=== PATIENT | female | born 1975 | race Caucasian/White ===

== ENCOUNTER → 2017-12-01 09:11 | Outpatient (REF) | payer BC, OTHER, SELFPAY ==
[2017-12-01 14:04] LABS: Amphetamine/Metha Screen,Urine Negative ng/mL (<1000); Barbiturates Screen,Urine Negative ng/mL (<200); Benzodiazepines Screen,Urine Negative ng/mL (200); Cannabinoid Screen,Urine Negative ng/mL (<50); Cocaine Screen,Urine Negative ng/g (<300); Methadone Screen,Urine Negative ng/mL (<300); Opiate Screen,Urine Negative ng/mL (<300); Phencyclidine Screen,Urine Negative ng/mL (<25)
[2017-12-08 16:28] LABS: Alprazolam Negative (Cutoff=100); Benzodiazepines Negative ng/mL (Cutoff=100); Clonazepam Negative (Cutoff=100); Flurazepam Negative (Cutoff=100); Lorazepam Negative (Cutoff=100); Midazolam Negative (Cutoff=100); Temazepam Negative (Cutoff=100); Triazolam Negative (Cutoff=100)
== END ==
LOC: LAB 09:11
PROVIDERS: Visit Provider Nurse Practitioner Family
DX: Z79.899 Other long term (current) drug therapy (principal); F41.9 Anxiety disorder, unspecified
CPT/HCPCS: 80305; 80346

== ENCOUNTER 2020-01-07 13:39 | Emergency (ER) | payer BC, OTHER, SELFPAY ==
[2020-01-07 13:48] VITALS: BP 137/91; PULSE 93; RESP 18; TEMP 36.7; O2SAT 99; BMI 21.9
--- NOTE | 2020-01-07 13:57 | HMH.EDUTC ---
[facility] [place] Clinical Impression: Strep throat exposure Disposition: Home, Self-Care Condition on Discharge: Good Instructions: Strep Throat, DI for Strep Throat Additional Instructions: Drink plenty of fluids. Take tylenol for pain or fever. Take the medications as directed if you begin to have symptoms. Follow up with your regular doctor. GO TO THE ER FOR ANY WORSENING SYMPTOMS Prescriptions: Azithromycin [Z-Nirav 250mg Tab*] 250 mg PO UD DOSE PK #6 tab Transmission Status: Received by [id number] Referrals: Maribel Stevenson [Primary Care Provider] - Forms: Work/School Release Time of Disposition: 14:01 Medical Decision Making - Medical Records Medical records reviewed: No: I reviewed the patient's medical records. - Horace Inquiry Pt receiving controlled substance: No Vital Signs: 01/07/20 13:48 01/07/20 14:09 Temperature 98.1 F 98.1 F Temperature Source Oral Oral Pulse Rate 93 H Pulse Rate [Right Brachial] 93 H Respiratory Rate 18 18 Blood Pressure 137/91 H Blood Pressure [Right Arm] 137/91 H Blood Pressure Mean [Right Arm] 106 Blood Pressure Source Automatic Cuff Blood Pressure Source [Right Arm] Automatic Cuff Blood Pressure Position Sitting Blood Pressure Position [Right Arm] Sitting 02 Sat by Pulse Oximetry 99 Oxygen Delivery Method Room Air Room Air - Lab Data Lab results reviewed: Yes: I reviewed the patient's lab results. Lab Results 01/07/20 13:50: Strep Scn Rapid Clinic Negative Orders (Tests/Meds): ORDERS Category Date Time Status Strep Screen Confirmation Stat Micro 01/07/20 13:50 Received [facility] [place] HPI - General Stated complaint: sore throat Time Seen by Provider: 01/07/20 13:57 Mode of Arrival: Family Vehicle Source of Information: Patient Limitations: No Limitations Description of Symptoms (Recalled from Triage Doc. by RN): STATES GRANDSON TESTED POSITIVE FOR STREP AND WANTS TO BE TESTED. DENIES C/O SORE THROAT BUT STATES I KNOW I HAVE IT HEENT Symptoms (Recalled from RN notes): No Resp Symptoms (Recalled from RN notes): No Skin Symptoms (Recalled from RN notes): No MS Symptoms (Recalled from RN notes): No Functional Status (Recalled from RN notes): N/A - History of Present Illness Provider Complaint: She states that she has been exposed to strep throat by her grand child. She has a history of getting strep throat frequently. She denies any sore throat or other symptoms. - Related Data Home Medications Medication Instructions Recorded Confirmed ascorbic acid (vitamin C) 1,000 mg PO 12/02/19 12/02/19 tablet bisoprolol 5 tab PO 12/02/19 12/02/19 mg-hydrochlorothiazide 6.25 mg tablet ferrous sulfate 325 mg (65 mg PO 12/02/19 12/02/19 iron) tablet paroxetine HCl 10 mg tablet mg PO 12/02/19 12/02/19 Previous Rx's Medication Instructions Recorded ondansetron 4 mg disintegrating 4 mg PO Q6H PRN 3 Days #12 tab 12/02/19 tablet Azithromycin [Z-Nirav 250mg Tab*] 250 mg PO UD DOSE PK #6 tab 01/07/20 Allergies Allergy/AdvReac Type Severity Reaction Status Date / Time SULFA (SULFONAMIDE) Allergy Unknown I-HIVES Uncoded 12/02/19 10:36 - Worker's Comp Is this a Worker's Comp case?: No [facility] History - Hepatitis A Screen Drug use history?: No High risk sexual behaviors?: No History of sexually transmitted infection?: No Currently employed?: No Childcare worker?: No Do you have indoor plumbing?: Yes Do you have electricity?: Yes Attestation statement:: This patient has been screened for Hepatitis A risk factors. I have reviewed the patient's past medical history: Yes Medical History: Reports:: Anxiety, Depression, Hypertension Denies:: Cancer, Diabetes Mellitus Type 1, Diabetes Mellitus Type 2, MRSA Comment: insomnia Other Surgeries: Yes: Amputation: No Fractures: No - Social History Smoking Status: Current every day smoker Tobacco Type: cigarettes # Packs/Day (cigarettes): 1 Al
[2020-01-07 14:09] VITALS: BP 137/91; PULSE 93; RESP 18; TEMP 36.7; O2SAT 99
[2020-01-07 14:32] LABS: UTC Strep Screen (Rapid) Negative (Negative)
== END 2020-01-07 14:11 | disposition home or self-care (01) ==
PROVIDERS: Emergency Provider Nurse Practitioner Family; PCP Nurse Practitioner Family
DX: J02.9 Acute pharyngitis, unspecified (principal); Z88.2 Allergy status to sulfonamides; Z72.0 Tobacco use
CPT/HCPCS: 87880; 99201

== ENCOUNTER 2020-04-18 14:40 | Emergency (ER) | payer BC, OTHER, SELFPAY ==
[2020-04-18 14:55] VITALS: BP 149/80; PULSE 110; RESP 20; TEMP 37.5; O2SAT 98; BMI 21.1
--- NOTE | 2020-04-18 15:10 | HMH.EDUTC ---
[facility] [place] Disposition Clinical Impression: Bronchitis Disposition: Home, Self-Care Condition on Discharge: Good Instructions: DI for Acute Bronchitis Additional Instructions: start antibiotics Tylenol and ibuprofen as needed for pain or fever Humidifier/vaporizer/hot steamy shower Follow-up with primary care tomorrow. Follow-up immediately in the ER of the [facility] for new or worsening symptoms or no noticeable improvement over the next 48-72 hours. Stop smoking Inhaler every 4-6 hours as needed. Should help open airways improved cough, wheezing, shortness of breath Start steroids today. Helps with inflammation therefore coughing and wheezing. Follow directions on package. Patient states they have taken them before. Prescriptions: predniSONE [Prednisone 20mg Tab] 20 mg PO BID #10 tab Transmission Status: Pending to [id number] Azithromycin [Zithromax 250mg tab] 250 mg PO DIRECTED #6 tab Transmission Status: Pending to [id number] Referrals: Maribel Stevenson [Primary Care Provider] - Time of Disposition: 15:18 Medical Decision Making - Horace Inquiry Pt receiving controlled substance: No Vital Signs: 04/18/20 14:55 Temperature 99.5 F Temperature Source Oral Pulse Rate [Right Brachial] 110 H Respiratory Rate 20 Blood Pressure [Right Arm] 149/80 H Blood Pressure Mean [Right Arm] 103 Blood Pressure Source [Right Arm] Automatic Cuff Blood Pressure Position [Right Arm] Sitting 02 Sat by Pulse Oximetry 98 Oxygen Delivery Method Room Air Orders (Tests/Meds): ORDERS Category Date Time Status SARS-CoV-2, LELE Stat Lab 04/18/20 15:10 Received [facility] [place] HPI - General Chief complaint: Urgent [facility] Stated complaint: tested for covid Time Seen by Provider: 04/18/20 15:10 Mode of Arrival: Ambulatory Source of Information: Patient Limitations: No Limitations Description of Symptoms (Recalled from Triage Doc. by RN): cough, runny nose, shortness of breath, wants covid test HEENT Symptoms (Recalled from RN notes): Yes Resp Symptoms (Recalled from RN notes): Yes Skin Symptoms (Recalled from RN notes): No MS Symptoms (Recalled from RN notes): No Functional Status (Recalled from RN notes): none - History of Present Illness Provider Complaint: 45-year-old female presents for runny nose, coughing up clear sputum, wheezing, low-grade fever, and shortness of breath since yesterday. Patient request a cover test. Patient denies any ill contacts - Related Data Home Medications Medication Instructions Recorded Confirmed ascorbic acid (vitamin C) 1,000 mg PO 12/02/19 12/02/19 tablet bisoprolol 5 tab PO 12/02/19 12/02/19 mg-hydrochlorothiazide 6.25 mg tablet ferrous sulfate 325 mg (65 mg PO 12/02/19 12/02/19 iron) tablet paroxetine HCl 10 mg tablet mg PO 12/02/19 12/02/19 Previous Rx's Medication Instructions Recorded ondansetron 4 mg disintegrating 4 mg PO Q6H PRN 3 Days #12 tab 12/02/19 tablet Azithromycin [Z-Nirav 250mg Tab*] 250 mg PO UD DOSE PK #6 tab 01/07/20 Azithromycin [Zithromax 250mg 250 mg PO DIRECTED #6 tab 04/18/20 tab] predniSONE [Prednisone 20mg 20 mg PO BID #10 tab 04/18/20 Tab] Allergies Allergy/AdvReac Type Severity Reaction Status Date / Time SULFA (SULFONAMIDE) Allergy Unknown I-HIVES Uncoded 12/02/19 10:36 - Worker's Comp Is this a Worker's Comp case?: No [facility] History - Hepatitis A Screen Drug use history?: No High risk sexual behaviors?: No History of sexually transmitted infection?: No Currently employed?: No Childcare worker?: No Do you have indoor plumbing?: Yes Do you have electricity?: Yes Attestation statement:: This patient has been screened for Hepatitis A risk factors. I have reviewed the patient's past medical history: Yes Medical History: Reports:: Anxiety, Depression, Hypertension Denies:: Cancer, Diabetes Mellitus Type 1, Diabetes Mellitus Type 2, Internal Pacemaker, MRSA Comment: insomn
[2020-04-18 15:22] VITALS: BP 140/80; PULSE 110; RESP 20; TEMP 37.5
[2020-04-20 13:26] LABS: Covid-19 Nasal PCR Sendout Lex NOT DETECTED
== END 2020-04-18 15:25 | disposition home or self-care (01) ==
PROVIDERS: Emergency Provider Nurse Practitioner Family; PCP Nurse Practitioner Family
DX: J20.9 Acute bronchitis, unspecified (principal); Z20.828 Contact with and (suspected) exposure to other viral communicable diseases; F41.8 Other specified anxiety disorders; I10 Essential (primary) hypertension; Z79.899 Other long term (current) drug therapy; Z88.2 Allergy status to sulfonamides
CPT/HCPCS: 99201; U0004

== ENCOUNTER 2020-08-21 05:34 | Emergency (ER) | payer OTHER, SELFPAY ==
--- NOTE | 2020-08-21 05:30 | ECG_ITS ---
APPROVED REPORT Exam: Resting ECG HR:92 bpm ECG Measurements Heart Rate 92 AXES VT 100 P 69 QRSd 70 QRS 76 QT 382 T 72 QTc 472 Conclusion Sinus rhythm with short VT ST abnormality, ? electrolyte effect Abnormal ECG Electronically signed by : Talon Snyder, 08/22/2020 19:05:23
[2020-08-21 05:35] VITALS: BP 166/101; PULSE 95; RESP 18; TEMP 36.9; O2SAT 95; BMI 29.9
--- NOTE | 2020-08-21 05:45 | CT_ITS ---
PROCEDURE: CT ABDOMEN PELVIS W CON CLINICAL INDICATION: abd pain Mid epigastric pain COMPARISON: No exams were available for comparison TECHNIQUE: IV Contrast: 75ML Isovue 370 Oral Contrast None Axial images obtained with sagittal and coronal reformats. All CT scans at the facility use one or more dose reduction, viz: automated exposure control, ma/kV adjustment per patient size (including targeted exams where dose is matched to indication, i.e. head), or iterative reconstruction technique. FINDINGS: LOWER THORAX: There is a small hiatal hernia. ABDOMEN & PELVIS: No focal liver lesion evident. The gallbladder is distended measuring up to 11 by 4.9 cm. No radiopaque stones are apparent. The spleen, adrenal glands, and pancreas have an unremarkable appearance. There are small bilateral renal cortical cysts. There is a nonobstructing 3 mm stone in the upper pole of the left kidney and a 1 mm stone in the lower pole of the left kidney. No ureteral calculi are apparent. The uterus has a bulky appearance and is anteverted. There is a 17 mm left ovarian cyst with some minimal enhancement of the wall which could be due to an involuting follicular cyst. No evidence of appendicitis. There is diverticulosis of the descending and sigmoid colon but no evidence of diverticulitis. No acute bony anomalies are evident. IMPRESSION: 1. Distended gallbladder . 2. Other nonacute findings as described above. Dictated by: Fuad Riley MD 08/21/2020 09:48 Fuad Riley MD in [place] 08/21/2020 09:48
--- NOTE | 2020-08-21 05:47 | XR_ITS ---
PROCEDURE: XR CHEST 2V CLINICAL HISTORY: cough COMPARISON: No exams were available for comparison FINDINGS: The cardiomediastinal silhouette and pulmonary vascularity are within normal limits. The lungs are clear without infiltrates, suspicious nodules, or pleural effusions. No acute bony abnormalities. IMPRESSION: No acute findings. Dictated by: Fuad Riley MD 08/21/2020 09:49 Fuad Riley MD in [facility] 08/21/2020 09:49
[2020-08-21 06:00] VITALS: BP 149/84; PULSE 94; RESP 16; O2SAT 95
[2020-08-21 06:06] LABS: Basophils # 0.1 K/mm3 (0-0.2); Basophils % 1.4 % (0.1-2.0); Eosinophils # 0.1 K/mm3 (0.0-0.4); Hematocrit 41.4 % (37.0-47.0); Hemoglobin 12.9 g/dL (12.2-16.2); Lymphocytes # 1.9 K/mm3 (0.7-4.5); Lymphocytes % 36.9 % (10-50); Mean Corpuscular HGB Conc 31.2 g/dL (31.8-35.4); Mean Corpuscular Hemoglobin 29.2 pg (27.0-31.2); Mean Corpuscular Volume 93.7 fl (81-99); Mean Platelet Volume 7.6 fl (7.4-10.4); Monocytes # 0.3 K/mm3 (0.1-1.0); Monocytes % 6.4 % (1.7-9.3); Neutrophils # 2.8 K/mm3 (1.8-7.8); Neutrophils % 54.2 % (37.0-80.0); Platelet Count 427 K/mm3 (142-424); Red Blood Count 4.42 M/mm3 (4.20-5.40); Red Cell Distribution Width 19.9 % (11.5-17.5); White Blood Count 5.1 K/mm3 (4.8-10.8)
[2020-08-21 06:17] LABS: Chloride 106 mmol/L (98-107)
[2020-08-21 06:18] LABS: Potassium 3.4 mmoL/L (3.5-5.1); Sodium 143 mmol/L (136-145)
[2020-08-21 06:20] LABS: Alanine Aminotransferase 84 U/L (12-78); Amylase 104 U/L (30-110); Blood Urea Nitrogen 10 mg/dl (7-17); Creatinine Clearance Estimated 113 mL/min (50-200); Estimated Glomerular Filt Rate 77 ml/min (>60); GFR (African American) 93 ML/MIN (>60)
[2020-08-21 06:21] LABS: Albumin Level 4.3 g/dl (3.5-5.0); Albumin/Globulin Ratio 1.2 (1.1-1.8); Alkaline Phosphatase 137 U/L (38-126); Anion Gap 12.4 mEq/L (5-15); Aspartate Amino Transferase 196 U/L (14-36); Bilirubin,Total 0.6 mg/dl (0.2-1.3); Carbon Dioxide 28 mmol/L (22.0-30.0); Globulin 3.6 g/dL (1.3-3.2); Glucose 130 mg/dl (74-100); Total Protein,Serum 7.9 g/dl (6.3-8.2)
[2020-08-21 06:22] LABS: Ethyl Alcohol 169 mg/dl (0-10)
[2020-08-21 06:30] VITALS: BP 168/102; PULSE 85; O2SAT 99
[2020-08-21 06:30] LABS: C-Reactive Protein < 0.3 mg/L (0-4); Lactic Acid 2.6 mmol/L (0.7-2.1)
[2020-08-21 06:34] LABS: HCG Qualitative, Serum Negative (Negative)
[2020-08-21 06:40] LABS: Erythrocyte Sedimentation Rate 24 mm/hr (0-20); Troponin I < 0.01 ng/ml (0.00-0.034)
[2020-08-21 06:46] LABS: Microscopic, Urine URINE MICROSCOPIC (MICROSCOPIC)
[2020-08-21 06:47] LABS: Appearance,Urine CLEAR (Clear); Bilirubin,Urine Negative (Negative); Blood, Urine Negative (Negative); Color,Urine YELLOW (Yellow); Glucose,Urine (UA) Negative (Negative); Ketones,Urine Negative (Negative); Leukocyte Esterase,Urine Negative (Negative); Nitrate,Urine Negative (Negative); PH,Urine 6.5 (5.0-8.5); Protein,Urine Negative (Negative); Urobilinogen,Urine 0.2 EU/dl (0.2)
[2020-08-21 07:01] LABS: Coronavirus 19 IgG Antibody Positive (Negative)
[2020-08-21 07:02] LABS: Coronavirus 19 IgM Antibody Positive (Negative)
[2020-08-21 07:07] LABS: Procalcitonin 0.073 ng/mL (0.0-2.0)
--- NOTE | 2020-08-21 07:17 | PC.NURSE ---
0708- Pt's IgG/IgM resulted as positive. Pt nasal swabbed at this time. 0540- Pt placed in isolation, al staff wearing appropriate PPE.
[2020-08-21 07:26] LABS: Adenovirus,PCR Not Detected (NotDetected); Bordetella Pertussis Not Detected (NotDetected); Chlamydophila Pneumoniae, PCR Not Detected (NotDetected); Coronavirus 19, PCR Not Detected (NotDetected); Coronavirus 229E Not Detected (NotDetected); Coronavirus NL63 Not Detected (NotDetected); Coronavirus OC43 Not Detected (NotDetected); Coronovirus HKU1,PCR Not Detected (NotDetected); Human Metapneumovirus Not Detected (NotDetected); Influenza A, PCR Not Detected (NotDetected); Influenza AH1, 2009 Not Detected (NotDetected); Influenza AH1, PCR Not Detected (NotDetected); Influenza AH3,PCR Not Detected (NotDetected); Influenza B, PCR Not Detected (NotDetected); Mycoplasma Pneumoniae, PCR Not Detected (NotDetected); Parainfluenza 1, PCR Not Detected (NotDetected); Parainfluenza 2, PCR Not Detected (NotDetected); Parainfluenza 3, PCR Not Detected (NotDetected); Parainfluenza 4, PCR Not Detected (NotDetected); Respiratory Syncytial Virus Not Detected (NotDetected); Rhinovirus/Enterovirus Not Detected (NotDetected)
[2020-08-21 07:33] LABS: Bacteria,Urine Trace /lpf; Mucus,Urine 1+ /lpf; RBC,Urine Occasional #/hpf (0-3); WBC,Urine Occasional #/hpf (0-3)
--- NOTE | 2020-08-21 07:33 | HMH.EDNVD ---
ED Disposition Clinical Impression: Transaminitis, COVID-19 virus IgG antibody detected, COVID-19 virus IgM antibody detected Gastritis Qualifiers: Gastritis type: alcoholic Chronicity: acute Gastritis bleeding: without bleeding Qualified Code(s): K29.20 - Alcoholic gastritis without bleeding Elevated blood alcohol level Qualifiers: Blood alcohol level: 120-199 mg/100 ml Qualified Code(s): Y90.6 - Blood alcohol level of 120-199 mg/100 ml Disposition: Home, Self-Care Condition on Discharge: Good Instructions: DI for Acute Abdomen Additional Instructions: quarantine at home and call pcp for follow up and please stop alcohol use Prescriptions: Pantoprazole Sodium [Protonix 40mg tablet] 40 mg PO HS #30 tab Transmission Status: Pending to [facility] #[id number] Referrals: Maribel Stevenson [Primary Care Provider] - - Critical Care Critical Care Time: No Attestation: On 08/21/20, the high probability of a clinically significant, sudden or life threatening deterioration of the following system(s) required my full and direct attention, intervention and personal management. The time I documented below is in addition to time spent performing reported procedures but includes the following listed in this critical care notation. Medical Decision Making - Medical Records Medical records reviewed: Yes: I reviewed the patient's medical records. - Horace Inquiry Pt receiving controlled substance: No Vital Signs: 08/21/20 05:35 08/21/20 06:00 08/21/20 06:30 Temperature 98.5 F Temperature Source Oral Pulse Rate [Left Radial] 95 H 94 H 85 Respiratory Rate 18 16 Blood Pressure [Right Arm] 166/101 H 149/84 H 168/102 H Blood Pressure Mean [Right Arm] 122 105 124 Blood Pressure Source [Right Arm] Automatic Cuff Automatic Cuff Automatic Cuff Blood Pressure Position [Right Arm] Supine Right Lateral Supine 02 Sat by Pulse Oximetry 95 95 99 Oxygen Delivery Method Room Air Room Air Room Air - Lab Data Lab results reviewed: Yes: I reviewed the patient's lab results. Lab Results 08/21/20 05:45: WBC 5.1, RBC 4.42, Hgb 12.9, Hct 41.4, MCV 93.7, MCH 29.2, MCHC 31.2 L, RDW 19.9 H, Plt Count 427 H, MPV 7.6, Neut % (Auto) 54.2, Lymph % (Auto) 36.9, [place] % (Auto) 6.4, Eos % (Auto) 1.0, Baso % (Auto) 1.4, Neut # (Auto) 2.8, Lymph # (Auto) 1.9, [place] # (Auto) 0.3, Eos # (Auto) 0.1, Baso # (Auto) 0.1, ESR 24 H 08/21/20 05:45: Sodium 143, Potassium 3.4 L, Chloride 106, Carbon Dioxide 28, Anion Gap 12.4, BUN 10, Creatinine 0.80, Estimated Creat Clear 113, Estimated GFR 77, Est GFR ( Amer) 93, Glucose 130 H, Calcium 9.0, Total Bilirubin 0.6, AST 196 H, ALT 84 H, Alkaline Phosphatase 137 H, Troponin I < 0.01, C-Reactive Protein < 0.3, Total Protein 7.9, Albumin 4.3, Globulin 3.6 H, Albumin/Globulin Ratio 1.2, Amylase 104, Procalcitonin 0.073 08/21/20 05:45: Lactate 2.6 H 08/21/20 05:45: SARS-CoV-2 IgG Ab (Rapid) Positive A, SARS-CoV-2 IgM Ab (Rapid) Positive A 08/21/20 05:45: Plasma/Serum Alcohol 169 H 08/21/20 05:45: Serum HCG, Qual Negative 08/21/20 06:30: Urine Color Yellow, Urine Appearance Clear, Urine pH 6.5, Ur Specific [place] 1.020, Urine Protein Negative, Urine Glucose (UA) Negative, Urine Ketones Negative, Urine Blood Negative, Urine Nitrate Negative, Urine Bilirubin Negative, Urine Urobilinogen 0.2, Ur Leukocyte Esterase Negative Result diagrams: 08/21/20 05:45 08/21/20 05:45 Orders (Tests/Meds): ED MEDICATIONS Generic Name Dose Route Start Last Admin Trade Name Freq PRN Reason Stop Dose Admin Sodium Chloride 1,000 mls @ 999 mls/hr 08/21/20 06:00 08/21/20 05:50 Sod Chlor 0.9% 1000ml Bag IV 08/21/20 07:00 999 mls/hr .Q1H1M SUKHJINDER Administration Sodium Chloride 1,000 mls @ 999 mls/hr 08/21/20 06:30 08/21/20 06:33 Sod Chlor 0.9% 1000ml Bag IV 08/21/20 07:30 999 mls/hr .Q1H1M SUKHJINDER Administration Sodium Chloride 8 ml 08/21/20 05:46 Sodium Chloride 0.9% 10ml Vial IV 09/20/20 05:45
[2020-08-21 07:36] LABS: Amphetamine/Metha Screen,Urine Negative ng/ml (<1000); Barbiturates Screen,Urine Negative ng/ml (<200)
[2020-08-21 07:37] LABS: Benzodiazepines Screen,Urine Negative ng/ml (<200)
[2020-08-21 07:38] LABS: Cannabinoid Screen,Urine Negative ng/ml (<50); Cocaine Screen,Urine Negative ng/ml (<300)
[2020-08-21 07:39] LABS: Methadone Screen,Urine Negative ng/ml (<300)
[2020-08-21 07:40] LABS: Opiate Screen,Urine Negative ng/ml (<300); Phencyclidine Screen,Urine Negative ng/ml (<25)
[2020-08-21 08:04] LABS: Lipase 108 U/L (23-300)
[2020-08-21 08:45] VITALS: BP 166/94; PULSE 85; RESP 20; TEMP 36.9; O2SAT 99
[2020-08-21 10:06] LABS: Reflex Lactic Add Lactic Reflex
== END 2020-08-21 08:46 | disposition home or self-care (01) ==
PROVIDERS: Emergency Provider Emergency Medicine; PCP Nurse Practitioner Family
DX: K29.20 Alcoholic gastritis without bleeding (principal); R74.01 Elevation of levels of liver transaminase levels; Z01.84 Encounter for antibody response examination; R78.0 Finding of alcohol in blood; Y90.6 Blood alcohol level of 120-199 mg/100 ml; F17.210 Nicotine dependence, cigarettes, uncomplicated; I10 Essential (primary) hypertension; F41.8 Other specified anxiety disorders; Z88.2 Allergy status to sulfonamides
CPT/HCPCS: 71046; 74177; 80053; 80305; 81001; 82150; 83605; 83690; 84145; 84484; 84703; 85025; 85651; 86140; 86328; 87040; 87581; 87633; 87798; 93005; 96365; 96366; 96375; 99284; J2405; Q9967

== ENCOUNTER 2021-02-25 18:00 | Emergency (ER) | payer OTHER, SELFPAY ==
[2021-02-25 18:00] VITALS: BP 186/102; PULSE 131; RESP 24; O2SAT 98; BMI 30.1
--- NOTE | 2021-02-25 18:06 | HMH.EDGENADL ---
ED Disposition Condition on Discharge: Fair - Critical Care Critical Care Time: No Clinical Impression: Threatening suicide Alcohol intoxication Qualifiers: Complication of substance-induced condition: with delirium Qualified Code(s): F10.921 - Alcohol use, unspecified with intoxication delirium Disposition: Xfer Psychiatric Hosp Referrals: Provider,Referral, MD [Primary Care Provider] - Attestation: On 02/25/21, the high probability of a clinically significant, sudden or life threatening deterioration of the following system(s) required my full and direct attention, intervention and personal management. The time I documented below is in addition to time spent performing reported procedures but includes the following listed in this critical care notation. Medical Decision Making - Medical Records Medical records reviewed: Yes: I reviewed the patient's medical records. MR Comment: Reviewed prior emergency department visits. Prior diagnoses of alcoholism and alcohol intoxication. Positive Covid IgG and IgM 08/21/2021. - Horace Inquiry Pt receiving controlled substance: No - Reevaluation(s) Time: 18:20 Time: 18:35 Time reevaluation 3: 19:29 Vital Signs: 02/25/21 18:00 Pulse Rate [Radial] 131 H Respiratory Rate 24 Blood Pressure [Right Arm] 186/102 H Blood Pressure Mean [Right Arm] 130 02 Sat by Pulse Oximetry 98 Oxygen Delivery Method Room Air - Lab Data Lab Results 02/25/21 18:49: Urine Color Straw, Urine Appearance Clear, Urine pH 7.5, Ur Specific [employer] 1.015, Urine Protein Trace, Urine Glucose (UA) Negative, Urine Ketones Negative, Urine Blood Negative, Urine Nitrate Negative, Urine Bilirubin Negative, Urine Urobilinogen 0.2, Ur Leukocyte Esterase Trace, Urine Bacteria Trace 02/25/21 18:49: Urine Opiates Screen Negative, Urine Methadone Screen Negative, Ur Barbituates Screen Negative, Ur Phencyclidine Scrn Negative, Ur Amphetamines Screen Negative, U Benzodiazepines Scrn Negative, Urine Cocaine Screen Negative, U Marijuana (THC) Screen Negative 02/25/21 18:49: Urine HCG, Qual Negative 02/25/21 18:52: Chlamy pneumoniae PCR Not detected, Adenovirus (PCR) Not detected, B. pertussis DNA (PCR) Not detected, Coronavirus OC43 (PCR) Not detected, Coronavirus HKU1 (PCR) Not detected, Coronavirus 229E (PCR) Not detected, SARS-CoV-2 (PCR) Not detected, Coronavirus NL63 (PCR) Not detected, Human Metapneumovir PCR Not detected, Influenza A (H1) PCR Not detected, Influ A (H1N1/09) PCR Not detected, Influenza A (H3) PCR Not detected, Influenza Type A (PCR) Not detected, Influenza Type B (PCR) Not detected, M. pneumoniae (PCR) Not detected, Parainfluenza 1 (PCR) Not detected, Parainfluenza 2 (PCR) Not detected, Parainfluenza 3 (PCR) Not detected, Parainfluenza 4 (PCR) Not detected, RSV (PCR) Not detected, Entero/Rhino (PCR) Not detected Orders (Tests/Meds): ED MEDICATIONS Discontinued Medications Generic Name Dose Route Start Last Admin Trade Name Freq PRN Reason Stop Dose Admin Cephalexin HCl 500 mg 02/25/21 21:03 02/25/21 21:03 Cephalexin 500mg Capsule PO 02/25/21 21:04 500 mg ONCE ONE Administration Protocol Diphenhydramine HCl 50 mg 02/25/21 19:26 02/25/21 19:32 Diphenhydramine 50mg/Ml Vial IM 02/25/21 19:27 50 mg ONCE ONE Administration Haloperidol Lactate 5 mg 02/25/21 19:26 02/25/21 19:32 Haloperidol Lactate 5 Mg/Ml Vial IM 02/25/21 19:27 5 mg ONCE ONE Administration Lorazepam 2 mg 02/25/21 19:26 02/25/21 19:32 Lorazepam 2mg/Ml Vial IM 02/25/21 19:27 2 mg ONCE ONE Administration ORDERS Category Date Time Status Shoulder XR right miminum 2 views [XR shoulder RT min Exams 02/25/21 19:43 Ordered 2V] Stat XR chest portable Stat Exams 02/25/21 19:43 Ordered Acetaminophen Stat Lab 02/25/21 18:21 Ordered Complete Blood Count Auto Diff Stat Lab 02/25/21 18:21 Ordered Comprehensive Metabolic Panel Stat Lab 02/25/21 18:21 Ordered E
--- NOTE | 2021-02-25 18:33 | PC.NURSE ---
pt threatening harm to staff, pt refusing to have labs drawn.
--- NOTE | 2021-02-25 18:54 | PC.NURSE ---
called [facility] and advised that patient will be cited by the police and is refusing blood draw. They asked to at least get urine and covid swab and to call report.
[2021-02-25 18:56] LABS: Microscopic, Urine URINE MICROSCOPIC (MICROSCOPIC)
[2021-02-25 18:58] LABS: Appearance,Urine CLEAR (Clear); Bilirubin,Urine Negative (Negative); Blood, Urine Negative (Negative); Color,Urine STRAW (Yellow); Glucose,Urine (UA) Negative (Negative); Ketones,Urine Negative (Negative); Leukocyte Esterase,Urine TRACE (Negative); Nitrate,Urine Negative (Negative); PH,Urine 7.5 (5.0-8.5); Protein,Urine TRACE (Negative); Specific Gravity, Urine 1.015 (1.005-1.030); Urobilinogen,Urine 0.2 EU/dl (0.2)
[2021-02-25 19:06] LABS: Bacteria,Urine Trace /lpf
[2021-02-25 19:09] LABS: Adenovirus,PCR Not Detected (NotDetected); Bordetella Pertussis Not Detected (NotDetected); Chlamydophila Pneumoniae, PCR Not Detected (NotDetected); Coronavirus 19, PCR Not Detected (NotDetected); Coronavirus 229E Not Detected (NotDetected); Coronavirus NL63 Not Detected (NotDetected); Coronavirus OC43 Not Detected (NotDetected); Coronovirus HKU1,PCR Not Detected (NotDetected); Human Metapneumovirus Not Detected (NotDetected); Influenza A, PCR Not Detected (NotDetected); Influenza AH1, 2009 Not Detected (NotDetected); Influenza AH1, PCR Not Detected (NotDetected); Influenza AH3,PCR Not Detected (NotDetected); Influenza B, PCR Not Detected (NotDetected); Mycoplasma Pneumoniae, PCR Not Detected (NotDetected); Parainfluenza 1, PCR Not Detected (NotDetected); Parainfluenza 2, PCR Not Detected (NotDetected); Parainfluenza 3, PCR Not Detected (NotDetected); Parainfluenza 4, PCR Not Detected (NotDetected); Respiratory Syncytial Virus Not Detected (NotDetected); Rhinovirus/Enterovirus Not Detected (NotDetected)
--- NOTE | 2021-02-25 19:10 | PC.NURSE ---
receiving report from day nurse who states that patient has been unruly since arrival. pt is standing in room yelling at the pd officer and smiling at both him and us while yelling don't touch my pussy , don't touch my fucking pussy , you just had your hand in between my legs,officer despite the fact the officer was at least two feet away from the patient. patient was advised to watch her language, and was told to quit making non true statement. advised per pd that she was on video. pt continues to speaking vulgar and yell that the officer keeps grabbing my titties and my nipples and you just sucked on my nipple . Advised again to quit yelling, she said fuck you bitch I'll whoop your GD ass . The officer advised her to stop making threats towards staff and she stated i don't give a fuck, if she says anything else I'll come out there and whoop both her and you . patient alternates between attempting to leave room and backinbg back into room. pt behavior continues to be erratic. [place] 1-on-1 due to previous SI complaints and for witness secondary to vulgar complaints against officer. Contacted dispatch at this time and staff requested a commissioned defence force officer to be at the hospital.
[2021-02-25 19:11] LABS: Barbiturates Screen,Urine Negative ng/ml (<200); Benzodiazepines Screen,Urine Negative ng/ml (<200)
[2021-02-25 19:12] LABS: Amphetamine/Metha Screen,Urine Negative ng/ml (<1000)
[2021-02-25 19:13] LABS: Cannabinoid Screen,Urine Negative ng/ml (<50); Methadone Screen,Urine Negative ng/ml (<300)
[2021-02-25 19:14] LABS: Cocaine Screen,Urine Negative ng/ml (<300); Opiate Screen,Urine Negative ng/ml (<300)
[2021-02-25 19:15] LABS: Phencyclidine Screen,Urine Negative ng/ml (<25)
--- NOTE | 2021-02-25 19:15 | PC.NURSE ---
after numerous attempts by police and fire dispatcher and staff to calm patient, patient walked into the bathroom and out the opposite door and attempted to exit the area of the ER. staff and pd advised patient to return to her room, she refused. pd attempted restraining patient to lead her back into room and she swung her arm out in attack towards ángel munguia who was assisting. pt continued to attempt to hit both staff and pd and was placed back in her room at this point. pt continued to yell obscenities at both staff and pd and attempt to exit room. pt was placed on bed utilizing safest technique at that time. pt was placed in handcuffs per pd but continued to fight staff and pd. md made decision to administer benadryl,ativan and haldol for safety related to erratic and combative behavior. pt received 3 injections in her left hip while being placed in handcuffs on her legs per pd. pt continued to fight and kick at both staff and pd and issue verbal threats. pt was repositioned in the bed and attempted to make comfortable.
[2021-02-25 19:25] LABS: Urine Pregnancy, HCG Qual. Negative (Negative)
--- NOTE | 2021-02-25 19:32 | PC.NURSE ---
md states to wait till patient calms down secondary to the medications administered and attempt to get the blood at that point.
--- NOTE | 2021-02-25 19:43 | XR_ITS ---
PROCEDURE INFORMATION: Exam: XR Chest Exam date and time: 02/25/2021 7:43 PM Age: 45 years old Clinical indication: Injury or trauma; Fall; Blunt trauma (contusions or hematomas); Patient HX: Medical clearance TECHNIQUE: Imaging protocol: XR of the chest. Views: 1 view. COMPARISON: CR XR CHEST 2V 08/21/2020 6:36 AM FINDINGS: Lungs: Unremarkable. No consolidation. Pleural spaces: Unremarkable. No pleural effusion. No pneumothorax. Heart/Mediastinum: Unremarkable. No cardiomegaly. Bones/joints: Unremarkable. IMPRESSION: No acute findings.
--- NOTE | 2021-02-25 19:43 | XR_ITS ---
PROCEDURE INFORMATION: Exam: XR Right Shoulder Exam date and time: 02/25/2021 7:43 PM Age: 45 years old Clinical indication: Injury or trauma; Fall; Blunt trauma (contusions or hematomas); Shoulder; Right; Patient HX: Injury, medical clearance, pain TECHNIQUE: Imaging protocol: XR Right shoulder. Views: 2 or more views. COMPARISON: No relevant prior studies available. FINDINGS: Bones/joints: Normal. Soft tissues: Normal. IMPRESSION: No acute findings.
--- NOTE | 2021-02-25 19:45 | PC.NURSE ---
Patient refusing vitals, and blood draw, aware. Continue one on one monitoring. Patient demanding to go smoke on multiple occasion, explained non smoking facility. Staff and [place] Police at bedside.
--- NOTE | 2021-02-25 20:47 | PC.NURSE ---
patient refusing VS to be taken
--- NOTE | 2021-02-25 21:22 | PC.NURSE ---
193 Called to ER per Gay Mancini RN. Stated patient was combative and uncooperative. When I entered the room patient hands where cuffed behind her back and shackles to both legs, multiple staff member and [place] police department where holding patient down on stretcher. IM injection were given per staff. Patient complainted that her arms were hurting. I asked officer to cuff from the front, cuff removed, small skin tear was noted to right wrist, area covered with dressing. Patient was cuffed to side rail. Will continue to monitor patient.
[2021-02-25 21:28] VITALS: BP 143/81; PULSE 86; RESP 20; TEMP -17.7; TEMP 0; O2SAT 98
--- NOTE | 2021-02-26 01:38 | PC.NURSE ---
Addendum entered by Marlin Andrade RN 02/26/21 01:48: [id number] Original Note: Patient stated that she needed to go to bathroom. Hand cuff removed per [employer] police. Assisted patient to bathroom, once in bathroom. Patient gait unsteady, patient refused to use bathroom. Pushing her way toward door to hallway. Patient yelling get your hands off me. [place] police escorted patient back to bed.
== END 2021-02-25 22:09 ==
PROVIDERS: Emergency Provider Emergency Medicine
DX: F10.221 Alcohol dependence with intoxication delirium (principal); F41.8 Other specified anxiety disorders; M25.511 Pain in right shoulder; I10 Essential (primary) hypertension; Z88.2 Allergy status to sulfonamides
CPT/HCPCS: 71045; 73030; 80305; 81001; 81025; 87581; 87633; 87798; 93005; 96372; 99283

== ENCOUNTER 2021-07-17 04:09 | Emergency (ER) | payer OTHER, SELFPAY ==
[2021-07-17 04:05] VITALS: BP 112/76; PULSE 103; RESP 19; TEMP 36.5; O2SAT 97; BMI 28.8
[2021-07-17 04:11] VITALS: BMI 28.8
--- NOTE | 2021-07-17 04:12 | XR_ITS ---
PROCEDURE INFORMATION: Exam: XR Pelvis Exam date and time: 07/17/2021 4:12 AM Age: 46 years old Clinical indication: Injury or trauma; Fall; Blunt trauma (contusions or hematomas); Bilateral; Pelvic region TECHNIQUE: Imaging protocol: XR pelvis. Views: 1 or 2 view. COMPARISON: CT ABDOMEN PELVIS W CON 08/21/2020 6:47 AM FINDINGS: Bones/joints: No evidence of acute fracture. Soft tissues: No soft tissue calcification. Vasculature: Probable phleboliths in the pelvis. IMPRESSION: No evidence of acute fracture. If symptoms persist, recommend repeat radiograph in 5-7 days.
--- NOTE | 2021-07-17 04:12 | CT_ITS ---
PROCEDURE INFORMATION: Exam: CT Cervical Spine Without Contrast Exam date and time: 07/17/2021 4:12 AM Age: 46 years old Clinical indication: Injury or trauma; Fall; Blunt trauma; Additional info: Fall, hit head TECHNIQUE: Imaging protocol: Computed tomography images of the cervical spine without contrast. Radiation optimization: All CT scans at this facility use at least one of these dose optimization techniques: automated exposure control; mA and/or kV adjustment per patient size (includes targeted exams where dose is matched to clinical indication); or iterative reconstruction. COMPARISON: CR XR CHEST AP 07/17/2021 4:22 AM FINDINGS: Bones/joints: Visualized vertebral body heights are maintained. No definite evidence of acute fracture. Cysts Discs/Spinal canal/Neural foramina: No severe spinal canal stenosis. Prevertebral Space: No significant prevertebral edema. Visualized vertebral body heights are maintained. No definite evidence of acute fracture. Lungs: Small bleb at the right apex. Soft tissues: Unremarkable. IMPRESSION: No acute findings.
--- NOTE | 2021-07-17 04:12 | XR_ITS ---
PROCEDURE INFORMATION: Exam: XR Chest Exam date and time: 07/17/2021 4:12 AM Age: 46 years old Clinical indication: Injury or trauma; Fall; Blunt trauma (contusions or hematomas) TECHNIQUE: Imaging protocol: XR of the chest. Views: 4 or more views. COMPARISON: CR XR CHEST PORTABLE 02/25/2021 9:22 PM FINDINGS: Lungs: No focal consolidation. Pleural spaces: No pleural effusion. No pneumothorax. Heart/Mediastinum: Unremarkable cardiomediastinal silhouette. Bones/joints: No acute osseous findings. IMPRESSION: No focal consolidation.
--- NOTE | 2021-07-17 04:12 | CT_ITS ---
PROCEDURE INFORMATION: Exam: CT Head Without Contrast Exam date and time: 07/17/2021 4:12 AM Age: 46 years old Clinical indication: Injury or trauma; Fall; Blunt trauma (contusions or hematomas); Patient HX: Bump on back of head; Additional info: Fall, hit head TECHNIQUE: Imaging protocol: Computed tomography of the head without contrast. Radiation optimization: All CT scans at this facility use at least one of these dose optimization techniques: automated exposure control; mA and/or kV adjustment per patient size (includes targeted exams where dose is matched to clinical indication); or iterative reconstruction. COMPARISON: No relevant prior studies available. FINDINGS: Brain: No hemorrhage. No mass effect. Cerebral ventricles: No ventriculomegaly. Paranasal sinuses: No fluid levels. Mastoid air cells: Visualized mastoid air cells are well aerated. Bones/joints: No acute fracture. Soft tissues: The visualized soft tissue is grossly unremarkable. IMPRESSION: No evidence of acute intracranial hemorrhage.
[2021-07-17 04:30] LABS: Basophils # 0.1 K/mm3 (0-0.2); Basophils % 1.2 % (0.1-2.0); Eosinophils # 0.1 K/mm3 (0.0-0.4); Eosinophils % 1.3 % (0.1-12.0); Hematocrit 43.4 % (37.0-47.0); Hemoglobin 13.3 g/dL (12.2-16.2); Lymphocytes # 2.1 K/mm3 (0.7-4.5); Lymphocytes % 51.6 % (10-50); Mean Corpuscular HGB Conc 30.7 g/dL (31.8-35.4); Mean Corpuscular Volume 97.6 fl (81-99); Mean Platelet Volume 9.1 fl (7.4-10.4); Monocytes # 0.3 K/mm3 (0.1-1.0); Monocytes % 6.3 % (1.7-9.3); Neutrophils # 1.6 K/mm3 (1.8-7.8); Neutrophils % 39.6 % (37.0-80.0); Platelet Count 250 K/mm3 (142-424); Red Blood Count 4.44 M/mm3 (4.20-5.40); Red Cell Distribution Width 23.2 % (11.5-17.5); White Blood Count 4.1 K/mm3 (4.8-10.8)
[2021-07-17 04:34] LABS: MANUAL DIFFERENTIAL MANUAL DIFFERENTIAL (MANUAL DIFF)
[2021-07-17 04:36] LABS: Alanine Aminotransferase 129 U/L (12-78); Albumin Level 3.8 g/dl (3.5-5.0); Alkaline Phosphatase 239 U/L (38-126); Anion Gap 16.7 mEq/L (5-15); Aspartate Amino Transferase 637 U/L (14-36); Bilirubin,Total 0.4 mg/dl (0.2-1.3); Blood Urea Nitrogen 6 mg/dl (7-17); Calcium 8.6 mg/dl (8.4-10.2); Carbon Dioxide 36 mmol/L (22.0-30.0); Chloride 95 mmol/L (98-107); Creatinine Clearance Estimated 118 mL/min (50-200); Estimated Glomerular Filt Rate 77 ml/min (>60); GFR (African American) 93 ML/MIN (>60); Glucose 137 mg/dl (74-100); Sodium 145 mmol/L (136-145); Total Protein,Serum 7.8 g/dl (6.3-8.2)
[2021-07-17 04:41] LABS: C-Reactive Protein 0.6 mg/L (0-4)
[2021-07-17 04:51] LABS: Ethyl Alcohol 368 mg/dl (0-10); Potassium 2.7 mmoL/L (3.5-5.1)
[2021-07-17 04:52] LABS: Acetaminophen < 10 ug/ml (10-30); Salicylate < 1.0 mg/dL (2.0-20.0)
[2021-07-17 04:55] LABS: Procalcitonin 0.149 ng/mL (0.0-2.0)
[2021-07-17 04:57] LABS: Erythrocyte Sedimentation Rate 28 mm/hr (0-20)
--- NOTE | 2021-07-17 04:58 | HMH.EDFALL ---
ED Disposition Clinical Impression: Transaminitis, Hypokalemia Elevated blood alcohol level Qualifiers: Blood alcohol level: 240 mg/100 ml or more Qualified Code(s): Y90.8 - Blood alcohol level of 240 mg/100 ml or more Fall Qualifiers: Encounter type: initial encounter Qualified Code(s): W19.XXXA - Unspecified fall, initial encounter Disposition: Home, Self-Care Condition on Discharge: Good Referrals: Provider,Referral, MD [Primary Care Provider] - - Critical Care Critical Care Time: No Attestation: On 07/17/21, the high probability of a clinically significant, sudden or life threatening deterioration of the following system(s) required my full and direct attention, intervention and personal management. The time I documented below is in addition to time spent performing reported procedures but includes the following listed in this critical care notation. Medical Decision Making - Medical Records Medical records reviewed: Yes: I reviewed the patient's medical records. - Horace Inquiry Pt receiving controlled substance: No Vital Signs: 07/17/21 04:05 Temperature 97.7 F Temperature Source Oral Pulse Rate [Right] 103 H Respiratory Rate 19 Blood Pressure [Right Arm] 112/76 Blood Pressure Mean [Right Arm] 88 Blood Pressure Source [Right Arm] Automatic Cuff 02 Sat by Pulse Oximetry 97 Oxygen Delivery Method Room Air - Lab Data Lab results reviewed: Yes: I reviewed the patient's lab results. Lab Results 07/17/21 04:21: WBC 4.1 L, RBC 4.44, Hgb 13.3, Hct 43.4, MCV 97.6, MCH 30.0, MCHC 30.7 L, RDW 23.2 H, Plt Count 250, MPV 9.1, Neut % (Auto) 39.6, Lymph % (Auto) 51.6 H, [place] % (Auto) 6.3, Eos % (Auto) 1.3, Baso % (Auto) 1.2, Neut # (Auto) 1.6 L, Lymph # (Auto) 2.1, [place] # (Auto) 0.3, Eos # (Auto) 0.1, Baso # (Auto) 0.1, Total Counted 100, Neutrophils % (Manual) 40 L, Lymphocytes % (Manual) 52 H, Monocytes % (Manual) 5, Eosinophils % (Manual) 2, Basophils % (Manual) 1.0, Platelet Estimate Normal, RBC Morphology Not Reportable, Target Cells 1+, Stomatocytes 1+, ESR 28 H 07/17/21 04:21: Sodium 145, Potassium 2.7 L*, Chloride 95 L, Carbon Dioxide 36 H, Anion Gap 16.7 H, BUN 6 L, Creatinine 0.80, Estimated Creat Clear 118, Estimated GFR 77, Est GFR ( Amer) 93, Glucose 137 H, Calcium 8.6, Total Bilirubin 0.4, AST 637 H*, ALT 129 H, Alkaline Phosphatase 239 H, C-Reactive Protein 0.6, Total Protein 7.8, Albumin 3.8, Globulin 4.0 H, Albumin/Globulin Ratio 1.0 L, Procalcitonin 0.149, Salicylates < 1.0 L, Acetaminophen < 10 L 07/17/21 04:21: Plasma/Serum Alcohol 368 H 07/17/21 04:21: Magnesium 1.8 07/17/21 04:21: Total Creatine Kinase 47 07/17/21 06:34: Urine Color Yellow, Urine Appearance Clear, Urine pH 7.0, Ur Specific [place] 1.020, Urine Protein 1+, Urine Glucose (UA) Negative, Urine Ketones Trace, Urine Blood Negative, Urine Nitrate Negative, Urine Bilirubin 1+ A, Urine Urobilinogen 2.0, Ur Leukocyte Esterase Negative, Ur Squamous Epith Cells 3-5, Amorphous Sediment 1+, Urine Bacteria 1+ 07/17/21 06:34: Urine Opiates Screen Negative, Urine Methadone Screen Negative, Ur Barbituates Screen Negative, Ur Phencyclidine Scrn Negative, Ur Amphetamines Screen Negative, U Benzodiazepines Scrn Negative, Urine Cocaine Screen Negative, U Marijuana (THC) Screen Negative Result diagrams: 07/17/21 04:21 07/17/21 04:21 Orders (Tests/Meds): ED MEDICATIONS Generic Name Dose Route Start Last Admin Trade Name Freq PRN Reason Stop Dose Admin Multivitamins 10 ml/ Thiamine 1,015 mls @ 150 mls/hr 07/17/21 05:13 07/17/21 05:13 HCl 100 mg/ Magnesium Sulfate IV 07/17/21 11:58 150 mls/hr 2 gm/ Lactated Ringer's .[id number] SUKHJINDER Administration Discontinued Medications Generic Name Dose Route Start Last Admin Trade Name Freq PRN Reason Stop Dose Admin Acetaminophen 650 mg 07/17/21 05:22 07/17/21 06:02 Acetaminophen 325mg Tab PO 07/17/21 05:23 650 mg ONCE ONE Administration Folic Acid 1 mg 07/17/21 05:12 07/17
[2021-07-17 05:06] LABS: Eosinophils % 2 % (0-3); Lymphocytes % 52 % (10-50); Monocytes % 5 % (2-9); Neutrophils % 40 % (42-76); Platelet Estimate Normal; Stomatocytes 1+; Target Cells 1+; Total Cells Counted 100
[2021-07-17 05:16] LABS: Magnesium 1.8 mg/dl (1.6-2.3)
[2021-07-17 05:21] LABS: Creatine Kinase 47 U/L (30-135)
--- NOTE | 2021-07-17 06:37 | PC.NURSE ---
Pt refuses to stay in bed. She elected to sit in floor. Pt refused to sit in chair or recliner. Pt offered several options for comfort in position. She now is pacing in room, refuses to sit or lay down. She reports her helps her back feel better to move. Pt also keeps walking into hallway. Re-directing pt to keep to room and keep calm.
[2021-07-17 06:40] LABS: Microscopic, Urine URINE MICROSCOPIC (MICROSCOPIC)
[2021-07-17 06:43] LABS: Appearance,Urine CLEAR (Clear); Blood, Urine Negative (Negative); Color,Urine YELLOW (Yellow); Glucose,Urine (UA) Negative (Negative); Ketones,Urine TRACE (Negative); Leukocyte Esterase,Urine Negative (Negative); Nitrate,Urine Negative (Negative); Protein,Urine 1+ (Negative)
[2021-07-17 06:56] LABS: Amphetamine/Metha Screen,Urine Negative ng/ml (<1000); Barbiturates Screen,Urine Negative ng/ml (<200)
[2021-07-17 06:57] LABS: Benzodiazepines Screen,Urine Negative ng/ml (<200)
[2021-07-17 06:58] LABS: Cannabinoid Screen,Urine Negative ng/ml (<50); Cocaine Screen,Urine Negative ng/ml (<300)
[2021-07-17 06:59] LABS: Methadone Screen,Urine Negative ng/ml (<300); Opiate Screen,Urine Negative ng/ml (<300)
[2021-07-17 07:00] LABS: Phencyclidine Screen,Urine Negative ng/ml (<25)
[2021-07-17 07:08] LABS: Bilirubin,Urine 1+ (Negative)
[2021-07-17 07:09] LABS: Amorphous Sediment,Urine 1+ /lpf; Bacteria,Urine 1+ /lpf
[2021-07-17 08:25] VITALS: BP 112/76; PULSE 103; RESP 19; TEMP 36.5; O2SAT 97
== END 2021-07-17 08:25 | disposition home or self-care (01) ==
PROVIDERS: Emergency Provider Emergency Medicine
DX: F10.229 Alcohol dependence with intoxication, unspecified (principal); Y90.8 Blood alcohol level of 240 mg/100 ml or more; E87.6 Hypokalemia; W01.0XXA Fall on same level from slipping, tripping and stumbling without subsequent striking against object, initial encounter; Y92.039 Unspecified place in apartment as the place of occurrence of the external cause
CPT/HCPCS: 70450; 71045; 72125; 72170; 80053; 80305; 80329; 81001; 82550; 83735; 84145; 85007; 85025; 85651; 86140; 96365; 96367; 96375; 99283; J2405

== ENCOUNTER 2021-08-23 09:34 | Emergency (ER) | payer OTHER, SELFPAY ==
[2021-08-23 09:56] VITALS: BP 136/87; PULSE 83; RESP 18; TEMP 36.8; O2SAT 100; BMI 21.1
--- NOTE | 2021-08-23 10:15 | HMH.EDNVD ---
ED Disposition Clinical Impression: Dehydration, Transaminitis, Hypokalemia Elevated blood alcohol level Qualifiers: Blood alcohol level: 80-99 mg/100 ml Qualified Code(s): Y90.4 - Blood alcohol level of 80-99 mg/100 ml Gastritis Qualifiers: Gastritis type: alcoholic Chronicity: acute Gastritis bleeding: without bleeding Qualified Code(s): K29.20 - Alcoholic gastritis without bleeding Disposition: Left Against Medical Advice Condition on Discharge: Fair Instructions: DI for Nausea -- Adult Referrals: Provider,MD Karmen [Primary Care Provider] - Shantanu Landeros MD [Staff Physician] - - Critical Care Critical Care Time: No Attestation: On 08/23/21, the high probability of a clinically significant, sudden or life threatening deterioration of the following system(s) required my full and direct attention, intervention and personal management. The time I documented below is in addition to time spent performing reported procedures but includes the following listed in this critical care notation. Medical Decision Making - Medical Records Medical records reviewed: Yes: I reviewed the patient's medical records. - Horace Inquiry Pt receiving controlled substance: No Vital Signs: 08/23/21 09:56 08/23/21 10:46 08/23/21 11:00 Temperature 98.3 F Temperature Source Oral Pulse Rate 124 H 119 H Pulse Rate [Right Radial] 83 Respiratory Rate 18 Blood Pressure 136/81 174/106 H Blood Pressure [Right Arm] 136/87 Blood Pressure Mean [Right Arm] 103 Blood Pressure Source [Right Arm] Automatic Cuff Blood Pressure Position [Right Arm] Supine 02 Sat by Pulse Oximetry 100 100 98 Oxygen Delivery Method Room Air Room Air 08/23/21 12:02 08/23/21 12:30 Temperature Temperature Source Pulse Rate 120 H 109 H Pulse Rate [Right Radial] Respiratory Rate 21 16 Blood Pressure 160/115 H 151/77 H Blood Pressure [Right Arm] Blood Pressure Mean [Right Arm] Blood Pressure Source [Right Arm] Blood Pressure Position [Right Arm] 02 Sat by Pulse Oximetry 98 Oxygen Delivery Method - Lab Data Lab Results 08/23/21 10:04: WBC 8.4, RBC 4.11 L, Hgb 12.3, Hct 37.6, MCV 91.7, MCH 30.0, MCHC 32.7, RDW 20.6 H, Plt Count 599 H, MPV 9.2, Neut % (Auto) 71.0, Lymph % (Auto) 23.0, [place] % (Auto) 4.3, Eos % (Auto) 0.6, Baso % (Auto) 1.1, Neut # (Auto) 5.9, Lymph # (Auto) 1.9, [place] # (Auto) 0.4, Eos # (Auto) 0.1, Baso # (Auto) 0.1 08/23/21 10:04: Sodium 140, Potassium 2.0 L*, Chloride 91 L, Carbon Dioxide 31 H, Anion Gap 20.0 H, BUN 4 L, Creatinine 0.70, Estimated Creat Clear 96, Estimated GFR 90, Est GFR ( Amer) 109, Glucose 156 H, Calcium 8.3 L, Total Bilirubin 1.2, AST 430 H*, ALT 92 H, Alkaline Phosphatase 255 H, Total Protein 7.5, Albumin 3.7, Globulin 3.8 H, Albumin/Globulin Ratio 1.0 L, Lipase 79 08/23/21 10:04: Acetone Level Small 08/23/21 10:14: Plasma/Serum Alcohol 76 H 08/23/21 10:20: Urine Color Yellow, Urine Appearance Clear, Urine pH 6.5, Ur Specific [place] 1.025, Urine Protein 1+, Urine Glucose (UA) Trace, Urine Ketones Negative, Urine Blood 3+, Urine Nitrate Negative, Urine Bilirubin 2+ A, Urine Urobilinogen 4.0, Ur Leukocyte Esterase Negative, Urine RBC 20-50, Urine WBC 3-5, Ur Squamous Epith Cells 3-5, Urine Bacteria None 08/23/21 10:46: VBG pH 7.64 H, VBG pCO2 25.0 L, VBG pO2 211.1 H, VBG HCO3 26.6, VBG Total CO2 27.3 H, VBG O2 Saturation 99.6 H, VBG Base Excess 5.7 H 08/23/21 11:45: Lactate 4.8 H Result diagrams: 08/23/21 10:04 08/23/21 10:04 Orders (Tests/Meds): ED MEDICATIONS Generic Name Dose Route Start Last Admin Trade Name Freq PRN Reason Stop Dose Admin Sodium Chloride 8 ml 08/23/21 12:45 Sodium Chloride 0.9% 10ml Vial IV 09/22/21 12:44 NEEDED PRN dilute pepcid Discontinued Medications Generic Name Dose Route Start Last Admin Trade Name Freq PRN Reason Stop Dose Admin Famotidine 20 mg 08/23/21 12:45 08/23/21 12:55 Famotidine 20mg/2ml Vial
[2021-08-23 10:20] LABS: Basophils # 0.1 K/mm3 (0-0.2); Basophils % 1.1 % (0.1-2.0); Eosinophils # 0.1 K/mm3 (0.0-0.4); Eosinophils % 0.6 % (0.1-12.0); Hematocrit 37.6 % (37.0-47.0); Hemoglobin 12.3 g/dL (12.2-16.2); Lymphocytes # 1.9 K/mm3 (0.7-4.5); Mean Corpuscular HGB Conc 32.7 g/dL (31.8-35.4); Mean Corpuscular Volume 91.7 fl (81-99); Mean Platelet Volume 9.2 fl (7.4-10.4); Monocytes # 0.4 K/mm3 (0.1-1.0); Monocytes % 4.3 % (1.7-9.3); Neutrophils # 5.9 K/mm3 (1.8-7.8); Platelet Count 599 K/mm3 (142-424); Red Blood Count 4.11 M/mm3 (4.20-5.40); Red Cell Distribution Width 20.6 % (11.5-17.5); White Blood Count 8.4 K/mm3 (4.8-10.8)
[2021-08-23 10:21] LABS: Chloride 91 mmol/L (98-107); Sodium 140 mmol/L (136-145)
[2021-08-23 10:24] LABS: Alanine Aminotransferase 92 U/L (12-78); Albumin Level 3.7 g/dl (3.5-5.0); Alkaline Phosphatase 255 U/L (38-126); Aspartate Amino Transferase 430 U/L (14-36); Bilirubin,Total 1.2 mg/dl (0.2-1.3); Blood Urea Nitrogen 4 mg/dl (7-17); Calcium 8.3 mg/dl (8.4-10.2); Carbon Dioxide 31 mmol/L (22.0-30.0); Creatinine Clearance Estimated 96 mL/min (50-200); Estimated Glomerular Filt Rate 90 ml/min (>60); GFR (African American) 109 ML/MIN (>60); Globulin 3.8 g/dL (1.3-3.2); Glucose 156 mg/dl (74-100); Lipase 79 U/L (23-300); Total Protein,Serum 7.5 g/dl (6.3-8.2)
--- NOTE | 2021-08-23 10:28 | PC.NURSE ---
Critical lab values called to Isidro Fischer RN
[2021-08-23 10:30] LABS: Microscopic, Urine URINE MICROSCOPIC (MICROSCOPIC)
[2021-08-23 10:32] LABS: Appearance,Urine CLEAR (Clear); Bilirubin,Urine 2+ (Negative); Blood, Urine 3+ (Negative); Color,Urine YELLOW (Yellow); Glucose,Urine (UA) TRACE (Negative); Ketones,Urine Negative (Negative); Leukocyte Esterase,Urine Negative (Negative); Nitrate,Urine Negative (Negative); PH,Urine 6.5 (5.0-8.5); Protein,Urine 1+ (Negative); Specific Gravity, Urine 1.025 (1.005-1.030)
[2021-08-23 10:46] VITALS: BP 136/81; PULSE 124; O2SAT 100
--- NOTE | 2021-08-23 10:46 | PC.NURSE ---
Spoke with emerson from lab about a critical value of K at 2.0 let TASHA OLIVO know
[2021-08-23 10:48] LABS: RBC,Urine 20-50 #/hpf (0-3)
--- NOTE | 2021-08-23 10:49 | PC.NURSE ---
Pt is sitting up in bed feeling sick. Gave pt ice to try and help with dry heaving.
[2021-08-23 11:00] VITALS: BP 174/106; PULSE 119; O2SAT 98
[2021-08-23 11:08] LABS: Acetone, Serum (Rapid) Small (None Detect)
[2021-08-23 11:09] LABS: VBG Base Excess 5.7 mmol/L (-2.4-2.3); VBG HCO3 26.6 mmol/L (23-30); VBG Oxygen Saturation 99.6 % (50-70); VBG PO2 211.1 mmol/L (28-40); VBG Total CO2 27.3 mmol/L (23-27)
[2021-08-23 11:13] LABS: VBG PH 7.64 mmol/L (7.31-7.41)
--- NOTE | 2021-08-23 11:16 | CT_ITS ---
PROCEDURE INFORMATION: Exam: CT Abdomen And Pelvis With Contrast Exam date and time: 08/23/2021 11:16 AM Age: 46 years old Clinical indication: Abdominal pain; Generalized; Patient HX: Abd pain, nausea, vomiting, insomnia TECHNIQUE: Imaging protocol: Computed tomography of the abdomen and pelvis with contrast. Radiation optimization: All CT scans at this facility use at least one of these dose optimization techniques: automated exposure control; mA and/or kV adjustment per patient size (includes targeted exams where dose is matched to clinical indication); or iterative reconstruction. Contrast material: ISOVUE; Contrast volume: 75 ml; Contrast route: IV; COMPARISON: CT ABDOMEN PELVIS W CON 08/21/2020 6:47 AM FINDINGS: Diaphragm: Small hiatal hernia. Liver: Hepatic steatosis, markedly progressed from 08/21/2020. Gallbladder and bile ducts: Normal. No calcified stones. No ductal dilation. Pancreas: Normal. No ductal dilation. Spleen: Calcified splenic granulomas. Adrenal glands: Normal. No mass. Kidneys and ureters: No hydronephrosis. Punctate nonobstructing bilateral renal calculi. Subcentimeter low-density lesions in the kidneys are too small to characterize but statistically benign. Incidental note of a nonobstructing 3 mm calculus in the proximal left ureter. Stomach and bowel: Colonic diverticulosis without evidence of diverticulitis. No bowel obstruction. Appendix: No evidence of appendicitis. Intraperitoneal space: Unremarkable. No free air. No significant fluid collection. Vasculature: Mild burden of atherosclerotic plaque in the abdominal aorta and branch vessels. No aneurysm. Lymph nodes: Unremarkable. No enlarged lymph nodes. Urinary bladder: Unremarkable as visualized. Reproductive: Unremarkable as visualized. Bones/joints: Unremarkable. No acute fracture. Soft tissues: Unremarkable. IMPRESSION: 1. No acute findings in the abdomen or pelvis. 2. Incidental note of a nonobstructing 3 mm calculus in the proximal left ureter. 3. Hepatic steatosis is markedly progressed from 08/21/2020. COMMENTS: Consistent with the [employer]'s Incidental Findings Committee white paper (J Am Ramon Radiol 2018): Any incidental renal lesion less than 1 cm or classified as too small to characterize, or any incidental cystic renal lesion characterized as simple-appearing, is likely benign. No follow-up imaging is recommended for these lesions per consensus recommendations based on imaging criteria.
--- NOTE | 2021-08-23 11:19 | PC.NURSE ---
Pt is going to CT
--- NOTE | 2021-08-23 11:21 | PC.NURSE ---
VBG results called to Latoya Mesa RN
[2021-08-23 12:02] VITALS: BP 160/115; PULSE 120; RESP 21; O2SAT 98
[2021-08-23 12:07] LABS: Lactic Acid 4.8 mmol/L (0.7-2.1)
--- NOTE | 2021-08-23 12:07 | PC.NURSE ---
Notified MD of 4.8 lactic
--- NOTE | 2021-08-23 12:08 | PC.NURSE ---
PT had been moved over to room 2 to be placed on cardiac specialist for potassium infusion
[2021-08-23 12:30] VITALS: BP 151/77; PULSE 109; RESP 16
--- NOTE | 2021-08-23 12:42 | PC.NURSE ---
RT at bedside
[2021-08-23 12:44] LABS: Ethyl Alcohol 76 mg/dl (0-10)
[2021-08-23 14:30] VITALS: BP 132/70; PULSE 110; RESP 18; TEMP 36.8; O2SAT 98
[2021-08-23 15:51] LABS: Reflex Lactic Add Lactic Reflex
== END 2021-08-23 14:31 | disposition left against medical advice (07) ==
PROVIDERS: Emergency Provider Emergency Medicine
DX: K29.20 Alcoholic gastritis without bleeding (principal); E86.0 Dehydration; E87.6 Hypokalemia; Y90.4 Blood alcohol level of 80-99 mg/100 ml; F41.8 Other specified anxiety disorders; I10 Essential (primary) hypertension; F17.210 Nicotine dependence, cigarettes, uncomplicated; Z88.2 Allergy status to sulfonamides
CPT/HCPCS: 74177; 80053; 81001; 82009; 82803; 83605; 83690; 85025; 96365; 96366; 96367; 96375; 96376; 99283; Q9967

== ENCOUNTER 2021-12-05 07:07 | Emergency (ER) | payer OTHER, SELFPAY ==
[2021-12-05 06:28] VITALS: BP 131/65; PULSE 104; RESP 18; TEMP 37.1; O2SAT 97; BMI 21.3
[2021-12-05 06:59] VITALS: BP 130/85; PULSE 99; RESP 18; O2SAT 95
--- NOTE | 2021-12-05 07:21 | HMH.EDAMS ---
ED Disposition Clinical Impression: Alcohol intoxication Qualifiers: Complication of substance-induced condition: uncomplicated Qualified Code(s): F10.920 - Alcohol use, unspecified with intoxication, uncomplicated Disposition: Home, Self-Care Condition on Discharge: Good Instructions: DI for Alcohol Use Disorder Additional Instructions: see pcp for follow up Referrals: Provider,Referral, [Primary Care Provider] - - Critical Care Critical Care Time: No Attestation: On 12/05/21, the high probability of a clinically significant, sudden or life threatening deterioration of the following system(s) required my full and direct attention, intervention and personal management. The time I documented below is in addition to time spent performing reported procedures but includes the following listed in this critical care notation. Medical Decision Making - Medical Records Medical records reviewed: Yes: I reviewed the patient's medical records. - Horace Inquiry Pt receiving controlled substance: No Vital Signs: 12/05/21 06:28 Temperature 98.8 F Temperature Source Oral Pulse Rate [Left] 104 H Respiratory Rate 18 Blood Pressure [Right Arm] 131/65 Blood Pressure Mean [Right Arm] 87 02 Sat by Pulse Oximetry 97 Oxygen Delivery Method Room Air Medical Decision Narrative: stable exam at this time - declined blood work Altered Mental Status HPI - General Chief Complaint: Wound/Laceration Stated Complaint: injury Time Seen by Provider: 12/05/21 07:10 Mode of Arrival: EMS Source of Information: Patient, EMS, Medical Record Limitations: No Limitations Description of Symptoms (Recalled from ER Triage Doc. by RN): pt was found by shaq [facility] [place] screaming in pain. upon arrival the pt was holding her stomach there is a wound that was in the healing stages of what the pt states was a surgical scar that had busted open. the police reported that when they opened the door there were multiple small alcohol bottles around the vehicle. the pt was visably impaired.upon arrival to the hospital the pt is still visually impaired and smells strongly of alcohol. the pt is refusing any needle sticks at all no blood work ect. - History of Present Illness HPI narrative: has been drinking and no specific c/o MD complaint: intoxication Onset (ago): hour(s) Severity: moderate Context: alcohol abuse Associated symptoms: denies other symptoms - Related Data Previous Rx's Medication Instructions Recorded Pantoprazole Sodium [Protonix 40mg 40 mg PO HS #30 tab 08/21/20 tablet] Allergies Allergy/AdvReac Type Severity Reaction Status Date / Time SULFA (SULFONAMIDE) Allergy Unknown I-HIVES Uncoded 12/02/19 10:36 [facility] History - Hepatitis A Screen Drug use history?: Yes High risk sexual behaviors?: No History of sexually transmitted infection?: No Currently employed?: No Childcare worker?: No Do you have indoor plumbing?: Yes Do you have electricity?: Yes Attestation statement:: This patient has been screened for Hepatitis A risk factors. I have reviewed the patient's past medical history: Yes Medical History: Reports:: Anxiety, Depression, Hypertension Denies:: Cancer, Diabetes Mellitus Type 1, Diabetes Mellitus Type 2, Internal Pacemaker, MRSA Comment: insomnia Other Surgeries: Yes: . No: Pacemaker Amputation: No Fractures: No - Social History Smoking Status: Current every day smoker Tobacco Type: cigarettes # Packs/Day (cigarettes): 2 Alcohol Intake: current Alcohol Intake Frequency:: a few times a week Substance Use Type: denies use Occupational Status: employed Housing: house Household Members: significant other, family, children - Psychiatric History Pschychiatric History:: Reports:: Anxiety, Depression Family Hx:: Hypertension ROS Obtained: Yes All systems reviewed & no additional complaints - Constitutional Constitutional: Denies fever(s) - Eyes Eyes:
--- NOTE | 2021-12-05 07:46 | PC.NURSE ---
Dietary brought breakfast tray, patient woken up to eat
--- NOTE | 2021-12-05 07:49 | PC.NURSE ---
pt given a meal tray
--- NOTE | 2021-12-05 09:00 | PC.NURSE ---
patient given ice water
--- NOTE | 2021-12-05 09:29 | PC.NURSE ---
per pt request contacted pts cousin derek to come and get her. Derek states she will come to pick pt up.
[2021-12-05 11:15] VITALS: BP 138/64; PULSE 98; RESP 18; TEMP 36.9; O2SAT 98
== END 2021-12-05 11:16 | disposition home or self-care (01) ==
PROVIDERS: Emergency Provider Emergency Medicine
DX: F10.920 Alcohol use, unspecified with intoxication, uncomplicated (principal); F41.8 Other specified anxiety disorders; I10 Essential (primary) hypertension; F17.210 Nicotine dependence, cigarettes, uncomplicated; Z88.2 Allergy status to sulfonamides
CPT/HCPCS: 99281

== ENCOUNTER 2021-12-08 16:25 | Emergency (ER) | payer OTHER, SELFPAY ==
[2021-12-08 16:30] VITALS: BP 137/89; PULSE 111; RESP 18; O2SAT 100; BMI 20.7
--- NOTE | 2021-12-08 16:44 | PC.NURSE ---
PT has friend bed side
[2021-12-08 16:45] VITALS: BP 137/89; PULSE 117; RESP 17; O2SAT 100
--- NOTE | 2021-12-08 17:16 | HMH.EDGENADL ---
ED Disposition Clinical Impression: Alcohol intoxication Qualifiers: Complication of substance-induced condition: uncomplicated Qualified Code(s): F10.920 - Alcohol use, unspecified with intoxication, uncomplicated Disposition: Home, Self-Care Condition on Discharge: Good Additional Instructions: Apply topical bacitracin 3 times daily for the next 5 days. Perform wet-to-dry dressing changes 3 times daily. Follow-up with your sales operations specialist as well as your primary care physician. Okay to take Tylenol as needed for pain. Return to ED with new, worsening, concerning symptoms. Prescriptions: Bacitracin 1 each TP TID 5 Days #40 g Transmission Status: Pending to [facility] #[id number] Referrals: Provider,Referral, [Primary Care Provider] - - Critical Care Critical Care Time: No Attestation: On 12/08/21, the high probability of a clinically significant, sudden or life threatening deterioration of the following system(s) required my full and direct attention, intervention and personal management. The time I documented below is in addition to time spent performing reported procedures but includes the following listed in this critical care notation. Medical Decision Making - Medical Records Medical records reviewed: Yes: I reviewed the patient's medical records. - Horace Inquiry Pt receiving controlled substance: No Vital Signs: 12/08/21 16:30 12/08/21 16:45 Pulse Rate 117 H Pulse Rate [Left Radial] 111 H Respiratory Rate 18 17 Blood Pressure 137/89 Blood Pressure [Right Arm] 137/89 Blood Pressure Mean [Right Arm] 105 Blood Pressure Source [Right Arm] Automatic Cuff Blood Pressure Position [Right Arm] Sitting 02 Sat by Pulse Oximetry 100 100 Oxygen Delivery Method Room Air Medical Decision Narrative: 46-year-old female with past medical history of alcohol abuse who is presenting to the ED with alcohol intoxication, wound evaluation. Differential diagnoses include cellulitis, dehiscence, intra-abdominal abscess, alcohol intoxication, polysubstance abuse. Given this work-up will include physical exam. Clinically patient is intoxicated however able to answer questions appropriately. Afebrile, normotensive, mildly tachycardic however patient is anxious and ambulating around the room. Clinically I have less suspicion for underlying dehiscence, wound appears to be healing appropriately. Patient missed her most recent wound care appointment however does have an appointment this upcoming Friday. Do not think that she needs imaging or labs. Feel that if she continues wet-to-dry dressing changes as well as topical bacitracin her wound will continue to heal. Patient sister would like referral to outpatient alcohol detoxification program, will attempt to arrange this. We will also provide patient with topical bacitracin prophylactically. Sent prescription for topical bacitracin, instructed patient to perform wet-to-dry dressing changes 3 times daily after application. She will follow-up with her wound care team and return with new or worsening symptoms. General Adult HPI - General Stated complaint: Intoxication Time Seen by Provider: 12/08/21 17:16 Mode of Arrival: EMS Source of Information: Patient, Relative Limitations: No Limitations - History of Present Illness HPI narrative: 46-year-old female with past medical history of alcohol abuse, prior exploratory laparotomy who is presenting to the ED with intoxication, wound check of her abdomen. Patient's sister is now present, states that she was living with her last week however she believes that she has been living out of her car this week. She was found by EMS acutely intoxicated. She admits to using alcohol. Denies any worsening abdominal pain. Patient is scheduled to receive wound care weekly for her healing midline abdominal incision. She does not have any other injuries. She is clinically sober during my initial evaluation. Her v
--- NOTE | 2021-12-08 17:17 | PC.NURSE ---
Pt in room with friend
--- NOTE | 2021-12-08 17:33 | PC.NURSE ---
Pt back from restroom.
[2021-12-08 18:29] VITALS: BP 130/75; PULSE 100; RESP 19; TEMP 37; O2SAT 100
== END 2021-12-08 18:32 | disposition home or self-care (01) ==
PROVIDERS: Emergency Provider Emergency Medicine
DX: F10.920 Alcohol use, unspecified with intoxication, uncomplicated (principal); F41.8 Other specified anxiety disorders; I10 Essential (primary) hypertension; F17.210 Nicotine dependence, cigarettes, uncomplicated; Z88.2 Allergy status to sulfonamides
CPT/HCPCS: 99282

== ENCOUNTER 2022-01-16 18:53 | Emergency (ER) | payer OTHER, SELFPAY ==
[2022-01-16 18:34] VITALS: BP 114/58; PULSE 112; RESP 16; TEMP 37.1; O2SAT 98; BMI 21.4
--- NOTE | 2022-01-16 20:33 | PC.NURSE ---
pt refused blood draw 3 times
--- NOTE | 2022-01-16 20:37 | HMH.EDALCO ---
ED Disposition Clinical Impression: Alcohol intoxication Qualifiers: Complication of substance-induced condition: uncomplicated Qualified Code(s): F10.920 - Alcohol use, unspecified with intoxication, uncomplicated Disposition: Home, Self-Care Condition on Discharge: Fair Instructions: DI for Alcohol Use Disorder Additional Instructions: call pcp for follow up Referrals: Provider,Referral, [Primary Care Provider] - - Critical Care Critical Care Time: No Attestation: On 01/16/22, the high probability of a clinically significant, sudden or life threatening deterioration of the following system(s) required my full and direct attention, intervention and personal management. The time I documented below is in addition to time spent performing reported procedures but includes the following listed in this critical care notation. Medical Decision Making - Medical Records Medical records reviewed: Yes: I reviewed the patient's medical records. - Horace Inquiry Pt receiving controlled substance: No Vital Signs: 01/16/22 18:34 Temperature 98.7 F Temperature Source Oral Pulse Rate [Left Radial] 112 H Respiratory Rate 16 Blood Pressure [Left Arm] 114/58 L Blood Pressure Mean [Left Arm] 76 Blood Pressure Source [Left Arm] Automatic Cuff Blood Pressure Position [Left Arm] Right Lateral 02 Sat by Pulse Oximetry 98 Oxygen Delivery Method Room Air Orders (Tests/Meds): ED MEDICATIONS Generic Name Dose Route Start Last Admin Trade Name Freq PRN Reason Stop Dose Admin Sodium Chloride 10 ml 01/16/22 18:49 Sodium Chloride 0.9% 10ml Flush Syringe IV 02/15/22 18:48 NEEDED PRN Maintain IV Site ORDERS Category Date Time Status Complete Blood Count Auto Diff Stat Lab 01/16/22 18:49 Ordered Comprehensive Metabolic Panel Stat Lab 01/16/22 18:49 Ordered Ethyl Alcohol Stat Lab 01/16/22 18:49 Ordered Medical Decision Narrative: pt stable but refused iv and blood work at this time - 2 visits in 12/11 for same Alcohol HPI - General Chief Complaint: Alcohol Stated Complaint: ETOH Intoxication Time Seen by Provider: 01/16/22 20:00 Mode of Arrival: EMS Source of Information: Patient, EMS, Medical Record Limitations: No Limitations Description of Symptoms (Recalled from ER Triage Doc. by RN): Pt to ED per EMS after they were called to scene by [employer] for pt being asleep in her car. Pt reports ETOH use. A&O X3 - History of Present Illness HPI narrative: found asleep in car at [facility] and brought to [facility] - pt w/o specific c/o but has hx of etoh use and has odor of etoh - no reported trauma MD complaint: alcohol intoxication Chronic alcohol use: Yes Previous visits for alcohol intoxication: Yes Recent trauma: No Associated symptoms: denies other symptoms Treatments prior to arrival: none - Related Data Previous Rx's Medication Instructions Recorded Pantoprazole Sodium [Protonix 40mg 40 mg PO HS #30 tab 08/21/20 tablet] Bacitracin 1 each TP TID 5 Days #40 g 12/08/21 Allergies Allergy/AdvReac Type Severity Reaction Status Date / Time SULFA (SULFONAMIDE) Allergy Unknown I-HIVES Uncoded 12/02/19 10:[address] [facility] History - Hepatitis A Screen Attestation statement:: This patient has been screened for Hepatitis A risk factors. I have reviewed the patient's past medical history: Yes Medical History: Reports:: Anxiety, Depression, Hypertension Denies:: Cancer, Diabetes Mellitus Type 1, Diabetes Mellitus Type 2, Internal Pacemaker, MRSA Comment: insomnia Other Surgeries: Yes: . No: Pacemaker Amputation: No Fractures: No - Social History Smoking Status: Current every day smoker Tobacco Type: cigarettes # Packs/Day (cigarettes): 2 Alcohol Intake: current Alcohol Intake Frequency:: a few times a week Substance Use Type: denies use Occupational Status: employed Housing: house Household Members: significant other, family, children - Psychiatric History [facility]
[2022-01-16 21:08] VITALS: BP 121/74; PULSE 90; RESP 16; TEMP 37.1; O2SAT 98
== END 2022-01-16 22:19 | disposition home or self-care (01) ==
PROVIDERS: Emergency Provider Emergency Medicine
DX: F10.129 Alcohol abuse with intoxication, unspecified (principal); I10 Essential (primary) hypertension; F32.A Depression, unspecified; F41.9 Anxiety disorder, unspecified; F17.210 Nicotine dependence, cigarettes, uncomplicated; Z79.899 Other long term (current) drug therapy; Z88.2 Allergy status to sulfonamides; Z82.49 Family history of ischemic heart disease and other diseases of the circulatory system
CPT/HCPCS: 99283

== ENCOUNTER 2022-01-17 15:11 | Emergency (ER) | payer OTHER, SELFPAY ==
[2022-01-17 15:13] VITALS: BP 151/94; PULSE 107; RESP 20; TEMP 36.8; O2SAT 98; BMI 19.5
--- NOTE | 2022-01-17 15:17 | HMH.EDGENADL ---
ED Disposition Clinical Impression: Alcohol intoxication Qualifiers: Complication of substance-induced condition: uncomplicated Qualified Code(s): F10.920 - Alcohol use, unspecified with intoxication, uncomplicated Chronic abdominal wound infection Qualifiers: Encounter type: sequela Qualified Code(s): S31.109S - Unspecified open wound of abdominal wall, unspecified quadrant without penetration into peritoneal cavity, sequela; L08.9 - Local infection of the skin and subcutaneous tissue, unspecified Disposition: Xfer Other Condition on Discharge: Good Instructions: DI for Alcohol Use Disorder, Skin Wound Prescriptions: Mupirocin [Bactroban 2% Ointment 22gm tube] 1 applicatio TP TID #22 gm Transmission Status: Pending to [facility] #[id number] Referrals: Shantanu Landeros MD [Primary Care Provider] - - Critical Care Critical Care Time: No Attestation: On , the high probability of a clinically significant, sudden or life threatening deterioration of the following system(s) required my full and direct attention, intervention and personal management. The time I documented below is in addition to time spent performing reported procedures but includes the following listed in this critical care notation. Medical Decision Making - Medical Records Medical records reviewed: Yes: I reviewed the patient's medical records. - Horace Inquiry Pt receiving controlled substance: No Vital Signs: 01/17/22 15:13 01/17/22 15:55 Temperature 98.3 F Temperature Source Oral Pulse Rate 113 H Pulse Rate [Left Radial] 107 H Respiratory Rate 20 Blood Pressure 125/81 Blood Pressure [Right Arm] 151/94 H Blood Pressure Mean [Right Arm] 113 Blood Pressure Source Automatic Cuff Blood Pressure Source [Right Arm] Automatic Cuff Blood Pressure Position [Right Arm] Sitting 02 Sat by Pulse Oximetry 98 99 Oxygen Delivery Method Room Air Room Air - Lab Data Lab Results 01/17/22 15:30: WBC 8.2, RBC 3.86 L, Hgb 11.0 L, Hct 35.5 L, MCV 91.9, MCH 28.6, MCHC 31.1 L, RDW 23.0 H, Plt Count 561 H, MPV 9.0, Neut % (Auto) 49.2, Lymph % (Auto) 44.2, [place] % (Auto) 3.3, Eos % (Auto) 1.1, Baso % (Auto) 2.2 H, Neut # (Auto) 4.0, Lymph # (Auto) 3.6, [place] # (Auto) 0.3, Eos # (Auto) 0.1, Baso # (Auto) 0.2 01/17/22 15:30: Sodium 144, Potassium 3.2 L, Chloride 102, Carbon Dioxide 34 H, Anion Gap 11.2, BUN 11, Creatinine 0.80, Estimated Creat Clear 78, Estimated GFR 77, Est GFR ( Amer) 93, Glucose 140 H, Calcium 8.5, Total Bilirubin 0.7, AST 390 H*, ALT 62, Alkaline Phosphatase 457 H, Total Protein 7.3, Albumin 3.1 L, Globulin 4.2 H, Albumin/Globulin Ratio 0.7 L 01/17/22 15:30: Plasma/Serum Alcohol 348 H Result diagrams: 01/17/22 15:30 01/17/22 15:30 Orders (Tests/Meds): ED MEDICATIONS Generic Name Dose Route Start Last Admin Trade Name Freq PRN Reason Stop Dose Admin Lactated Ringer's 1,000 mls @ 999 mls/hr 01/17/22 15:30 01/17/22 15:39 Lactated Ringer's 1000 Ml Bag IV 01/17/22 16:30 999 mls/hr .[id number] SUKHJINDER Administration Discontinued Medications Generic Name Dose Route Start Last Admin Trade Name Freq PRN Reason Stop Dose Admin Potassium Chloride 40 meq 01/17/22 16:06 01/17/22 16:08 Potassium Chloride 20meq Tab PO 01/17/22 16:07 40 meq ONCE ONE Administration Medical Decision Narrative: 410pm reeval, appears well, no complaints of pain, aox4, walks w/o assistance, [facility] Adult HPI - General Stated complaint: medical clearance Time Seen by Provider: 01/17/22 15:17 Source of Information: Law Enforcement Limitations: No Limitations - History of Present Illness HPI narrative: brought by police for med clearance, pt c/o abd pain, says she has been drinking vodka all day Location: abdomen Radiation: non-radiation Severity: moderate Quality: constant Consistency: constant Relieving factors: none Exacerbating factors: none Associated symp
--- NOTE | 2022-01-17 15:18 | PC.NURSE ---
ED MD at
--- NOTE | 2022-01-17 15:23 | PC.NURSE ---
Chef Under at patients BS
[2022-01-17 15:45] LABS: Basophils # 0.2 K/mm3 (0-0.2); Basophils % 2.2 % (0.1-2.0); Eosinophils # 0.1 K/mm3 (0.0-0.4); Eosinophils % 1.1 % (0.1-12.0); Hematocrit 35.5 % (37.0-47.0); Lymphocytes # 3.6 K/mm3 (0.7-4.5); Lymphocytes % 44.2 % (10-50); Mean Corpuscular HGB Conc 31.1 g/dL (31.8-35.4); Mean Corpuscular Hemoglobin 28.6 pg (27.0-31.2); Mean Corpuscular Volume 91.9 fl (81-99); Monocytes # 0.3 K/mm3 (0.1-1.0); Monocytes % 3.3 % (1.7-9.3); Neutrophils % 49.2 % (37.0-80.0); Platelet Count 561 K/mm3 (142-424); Red Blood Count 3.86 M/mm3 (4.20-5.40); White Blood Count 8.2 K/mm3 (4.8-10.8)
[2022-01-17 15:47] LABS: Chloride 102 mmol/L (98-107); Potassium 3.2 mmoL/L (3.5-5.1); Sodium 144 mmol/L (136-145)
[2022-01-17 15:50] LABS: Alanine Aminotransferase 62 U/L (12-78); Albumin Level 3.1 g/dl (3.5-5.0); Albumin/Globulin Ratio 0.7 (1.1-1.8); Alkaline Phosphatase 457 U/L (38-126); Anion Gap 11.2 mEq/L (5-15); Aspartate Amino Transferase 390 U/L (14-36); Bilirubin,Total 0.7 mg/dl (0.2-1.3); Blood Urea Nitrogen 11 mg/dl (7-17); Carbon Dioxide 34 mmol/L (22.0-30.0); Creatinine Clearance Estimated 78 mL/min (50-200); Estimated Glomerular Filt Rate 77 ml/min (>60); GFR (African American) 93 ML/MIN (>60); Globulin 4.2 g/dL (1.3-3.2); Total Protein,Serum 7.3 g/dl (6.3-8.2)
[2022-01-17 15:51] LABS: Calcium 8.5 mg/dl (8.4-10.2); Glucose 140 mg/dl (74-100)
[2022-01-17 15:55] VITALS: BP 125/81; PULSE 113; O2SAT 99
[2022-01-17 16:04] LABS: Ethyl Alcohol 348 mg/dl (0-10)
[2022-01-17 17:40] VITALS: BP 125/80; PULSE 110; RESP 20; TEMP 36.6; O2SAT 98
== END 2022-01-17 17:42 | disposition other institution (70) ==
PROVIDERS: Emergency Provider Emergency Medicine; PCP Emergency Medicine
DX: F10.129 Alcohol abuse with intoxication, unspecified (principal); S31.109S Unspecified open wound of abdominal wall, unspecified quadrant without penetration into peritoneal cavity, sequela; L08.9 Local infection of the skin and subcutaneous tissue, unspecified; R10.9 Unspecified abdominal pain; I10 Essential (primary) hypertension; F41.9 Anxiety disorder, unspecified; F32.A Depression, unspecified; F17.210 Nicotine dependence, cigarettes, uncomplicated; Z79.899 Other long term (current) drug therapy; Z88.2 Allergy status to sulfonamides; Z82.49 Family history of ischemic heart disease and other diseases of the circulatory system
CPT/HCPCS: 80053; 85025; 99283

== ENCOUNTER 2022-02-03 16:26 | Observation (INO) | payer OTHER, SELFPAY ==
[2022-02-03 16:29] VITALS: BP 125/72; PULSE 105; RESP 18; TEMP 36.9; O2SAT 99; BMI 27.4
--- NOTE | 2022-02-03 17:17 | PC.NURSE ---
Nora Krishnamurthy, RN at
--- NOTE | 2022-02-03 17:42 | CT_ITS ---
PROCEDURE INFORMATION: Exam: CT Head Without Contrast Exam date and time: 02/03/2022 6:38 PM Age: 46 years old Clinical indication: Injury or trauma; Fall; Blunt trauma (contusions or hematomas); Patient HX: Multiple fals, bruising to right side of face, lac on eye lid; Additional info: Fall/injury TECHNIQUE: Imaging protocol: Computed tomography of the head without contrast. Radiation optimization: All CT scans at this facility use at least one of these dose optimization techniques: automated exposure control; mA and/or kV adjustment per patient size (includes targeted exams where dose is matched to clinical indication); or iterative reconstruction. COMPARISON: CT HEAD/BRAIN WO CON 07/17/2021 4:37 AM FINDINGS: Brain: No acute intracranial hemorrhage. No intra- or extra-axial fluid collection. No mass effect or midline shift. Normal roca-white matter differentiation. Cerebral ventricles: No hydrocephalus. Paranasal sinuses: No air fluid levels in the visualized paranasal sinuses. Mastoid air cells: Visualized mastoid air cells are well aerated. Orbital cavities: Globes and retrobulbar structures are normal. Bones/joints: No acute calvarial or skull base fracture. Soft tissues: Right periorbital soft tissue edema noted. IMPRESSION: No evidence of acute intracranial abnormality.
--- NOTE | 2022-02-03 17:42 | CT_ITS ---
PROCEDURE INFORMATION: Exam: CT Lumbar Spine Without Contrast Exam date and time: 02/03/2022 6:47 PM Age: 46 years old Clinical indication: Injury or trauma; Fall; Blunt trauma (contusions or hematomas); Patient HX: Multiple fals, bruising to right side of face, lac on eye lid; Additional info: Fall/injury TECHNIQUE: Imaging protocol: Computed tomography images of the lumbar spine without contrast. Radiation optimization: All CT scans at this facility use at least one of these dose optimization techniques: automated exposure control; mA and/or kV adjustment per patient size (includes targeted exams where dose is matched to clinical indication); or iterative reconstruction. COMPARISON: CT THORACIC SPINE WO CON 02/03/2022 6:42 PM FINDINGS: Vertebrae: Nondisplaced fracture through the right-sided transverse process at L1. Discs/Spinal canal/Neural foramina: No significant disc protrusion. No severe spinal canal stenosis. No significant neural foraminal narrowing. Kidneys and ureters: Punctate nonobstructing renal calculi without hydronephrosis. Stomach and bowel: Diverticulosis coli without evidence for diverticulitis. Vasculature: Calcified atherosclerosis. No aneurysm. Soft tissues: Unremarkable. IMPRESSION: 1. Nondisplaced fracture through the right-sided transverse process at L1. 2. Diverticulosis coli without evidence for diverticulitis. 3. Punctate nonobstructing renal calculi without hydronephrosis.
--- NOTE | 2022-02-03 17:42 | CT_ITS ---
PROCEDURE INFORMATION: Exam: CT Maxillofacial Without Contrast Exam date and time: 02/03/2022 6:49 PM Age: 46 years old Clinical indication: Injury or trauma; Fall; Blunt trauma (contusions or hematomas); Eyelid and orbit/periorbital; Upper right; Patient HX: Multiple fals, bruising to right side of face, lac on eye lid; Additional info: Fall/injury TECHNIQUE: Imaging protocol: Computed tomography images of the face without contrast. Radiation optimization: All CT scans at this facility use at least one of these dose optimization techniques: automated exposure control; mA and/or kV adjustment per patient size (includes targeted exams where dose is matched to clinical indication); or iterative reconstruction. COMPARISON: CT HEAD/BRAIN WO CON 02/03/2022 6:38 PM FINDINGS: Orbital cavities: Orbits are normal. Globes are unremarkable. Bones/joints: No acute fracture or malalignment. Bilateral temporomandibular joints are congruent. Pterygoid plates are intact. Paranasal sinuses: No air-fluid levels. Soft tissues: Right periorbital soft tissue edema noted. No hematoma. Dental: Numerous dental caries and multiple periapical lucencies in the lower right mandible compatible with odontogenic abscesses. IMPRESSION: 1. No evidence of acute osseous abnormality in the maxillofacial bones. 2. Numerous dental caries and multiple periapical lucencies in the lower right mandible compatible with odontogenic abscesses.
--- NOTE | 2022-02-03 17:43 | HMH.EDGENADL ---
ED Disposition Clinical Impression: Hypokalemia, Multiple falls Alcohol withdrawal Qualifiers: Complication of substance-induced condition: uncomplicated Qualified Code(s): F10.230 - Alcohol dependence with withdrawal, uncomplicated Facial contusion Qualifiers: Encounter type: initial encounter Qualified Code(s): S00.83XA - Contusion of other part of head, initial encounter Lumbar transverse process fracture Qualifiers: Encounter type: initial encounter Fracture type: closed Qualified Code(s): S32.009A - Unspecified fracture of unspecified lumbar vertebra, initial encounter for closed fracture Sternal fracture Qualifiers: Encounter type: initial encounter Sternal location: body of sternum Fracture type: closed Qualified Code(s): S22.22XA - Fracture of body of sternum, initial encounter for closed fracture Disposition: Admitted as Observation Condition on Discharge: Fair - Critical Care Critical Care Time: No Attestation: On 02/03/22, the high probability of a clinically significant, sudden or life threatening deterioration of the following system(s) required my full and direct attention, intervention and personal management. The time I documented below is in addition to time spent performing reported procedures but includes the following listed in this critical care notation. Medical Decision Making - Horace Inquiry Pt receiving controlled substance: No Vital Signs: 02/03/22 16:29 Temperature 98.4 F Temperature Source Oral Pulse Rate [Left Radial] 105 H Respiratory Rate 18 Blood Pressure [Right Arm] 125/72 Blood Pressure Mean [Right Arm] 89 Blood Pressure Source [Right Arm] Automatic Cuff Blood Pressure Position [Right Arm] Sitting 02 Sat by Pulse Oximetry 99 Oxygen Delivery Method Room Air - Lab Data Lab Results 02/03/22 18:22: Urine HCG, Qual Negative 02/03/22 18:27: WBC 3.9 L, RBC 3.00 L, Hgb 9.7 L, Hct 29.3 L, MCV 97.6, MCH 32.2 H, MCHC 33.0, RDW 24.6 H, Plt Count 114 L, MPV 9.6, Neut % (Auto) 61.8, Lymph % (Auto) 29.8, [place] % (Auto) 5.2, Eos % (Auto) 2.3, Baso % (Auto) 0.9, Neut # (Auto) 2.4, Lymph # (Auto) 1.2, [place] # (Auto) 0.2, Eos # (Auto) 0.1, Baso # (Auto) 0.0 02/03/22 18:27: Sodium 134 L, Potassium 2.3 L*, Chloride 99, Carbon Dioxide 27, Anion Gap 10.3, BUN 3 L, Creatinine 0.80, Estimated Creat Clear 100, Estimated GFR 77, Est GFR ( Amer) 93, Glucose 95, Calcium 7.4 L, Total Bilirubin 0.9, AST 181 H, ALT 29, Alkaline Phosphatase 325 H, Total Protein 6.0 L, Albumin 2.4 L, Globulin 3.6 H, Albumin/Globulin Ratio 0.7 L 02/03/22 18:27: Plasma/Serum Alcohol 17 H Result diagrams: 02/03/22 18:27 02/03/22 18:27 Orders (Tests/Meds): ED MEDICATIONS Generic Name Dose Route Start Last Admin Trade Name Freq PRN Reason Stop Dose Admin Potassium Chloride/Water 100 mls @ 50 mls/hr 02/03/22 19:12 02/03/22 19:33 Potassium Chloride 20meq/100ml Ivpb IV 02/03/22 21:11 50 mls/hr ONCE ONE Administration Sodium Chloride 1,000 mls @ 500 mls/hr 02/03/22 19:45 02/03/22 19:41 Sod Chlor 0.9% 1000ml Bag IV 03/05/22 19:44 500 mls/hr .Q2H SUKHJINDER Administration Sodium Chloride 10 ml 02/03/22 20:19 Sodium Chloride 0.9% 10ml Vial IV 03/05/22 20:18 NEEDED PRN to Dilute Lorazepam inj Discontinued Medications Generic Name Dose Route Start Last Admin Trade Name Freq PRN Reason Stop Dose Admin Lorazepam 1 mg 02/03/22 20:19 02/03/22 20:26 Lorazepam 2mg/Ml Vial IV 02/03/22 20:20 1 mg ONCE ONE Administration Potassium Chloride 40 meq 02/03/22 19:12 02/03/22 19:24 Potassium Chloride 20meq Tab PO 02/03/22 19:13 40 meq ONCE ONE Administration ORDERS Category Date Time Status PT/PTT Stat Lab 02/03/22 17:56 Ordered - Physician Consults Physician Consulted: Leti Time: 20:18 Reason -: Admission Comment/Response: Agrees to admit the patient to the hospital. We discussed the patient's clinical information, including history, exam, lab
--- NOTE | 2022-02-03 17:45 | CT_ITS ---
PROCEDURE INFORMATION: Exam: CT Thoracic Spine Without Contrast Exam date and time: 02/03/2022 6:42 PM Age: 46 years old Clinical indication: Injury or trauma; Fall; Blunt trauma (contusions or hematomas) TECHNIQUE: Imaging protocol: Computed tomography images of the thoracic spine without contrast. Radiation optimization: All CT scans at this facility use at least one of these dose optimization techniques: automated exposure control; mA and/or kV adjustment per patient size (includes targeted exams where dose is matched to clinical indication); or iterative reconstruction. COMPARISON: CT CERVICAL SPINE WO CON 02/03/2022 6:38 PM FINDINGS: Vertebrae: Subtle nondisplaced fracture through the transverse process on the right at L1 which is partially visualized. Discs/Spinal canal/Neural foramina: No significant disc protrusion. No severe spinal canal stenosis. No significant neural foraminal narrowing. Soft tissues: Calcified atherosclerosis. IMPRESSION: Subtle nondisplaced fracture through the transverse process on the right at L1 which is partially visualized.
--- NOTE | 2022-02-03 17:55 | CT_ITS ---
PROCEDURE INFORMATION: Exam: CT Chest Without Contrast; Diagnostic Exam date and time: 02/03/2022 6:44 PM Age: 46 years old Clinical indication: Injury or trauma; Fall; Blunt trauma (contusions or hematomas); Additional info: Fall, sternal pain, R/O FX TECHNIQUE: Imaging protocol: Diagnostic computed tomography of the chest without contrast. Radiation optimization: All CT scans at this facility use at least one of these dose optimization techniques: automated exposure control; mA and/or kV adjustment per patient size (includes targeted exams where dose is matched to clinical indication); or iterative reconstruction. COMPARISON: CR XR CHEST AP 07/17/2021 4:22 AM FINDINGS: Lungs: Apical emphysema. No consolidation. Pleural spaces: No pneumothorax. No pleural effusion. Heart: No cardiomegaly. No pericardial effusion. Lymph nodes: No enlarged lymph nodes. Vasculature: Unremarkable. No aortic aneurysm. Spleen: Splenic calcifications. Intraperitoneal space: Trace perihepatic fluid which is partially visualized. Bones/joints: Subtle irregularity of the anterior cortex of the mid sternum. Soft tissues: Limited evaluation without contrast. No obvious soft tissue swelling. IMPRESSION: 1. Subtle irregularity of the anterior cortex of the mid sternum which may be chronic or may be secondary to a subtle nondisplaced fracture. Clinical correlation with point tenderness recommended. 2. Trace perihepatic fluid which is partially visualized and of uncertain etiology.
--- NOTE | 2022-02-03 17:56 | XR_ITS ---
PROCEDURE INFORMATION: Exam: XR Pelvis Exam date and time: 02/03/2022 6:53 PM Age: 46 years old Clinical indication: Pelvic pain; Patient HX: Patient has fallen a couple times recently. Ambulatory at this time. ; Additional info: Fall TECHNIQUE: Imaging protocol: XR pelvis. Views: 1 or 2 view. COMPARISON: CT ABDOMEN PELVIS W CON 08/23/2021 11:23 AM FINDINGS: Bones/joints: Unremarkable. No acute fracture. Soft tissues: Unremarkable. IMPRESSION: No acute findings.
--- NOTE | 2022-02-03 18:12 | PC.NURSE ---
Nora Krishnamurthy, RN at
--- NOTE | 2022-02-03 18:14 | PC.NURSE ---
patient ambulatory to restroom without complications
--- NOTE | 2022-02-03 18:18 | PC.NURSE ---
patient ambulatory back from restroom to ED room 10; no complications
[2022-02-03 18:33] LABS: Urine Pregnancy, HCG Qual. Negative (Negative)
--- NOTE | 2022-02-03 18:38 | CT_ITS ---
PROCEDURE INFORMATION: Exam: CT Cervical Spine Without Contrast Exam date and time: 02/03/2022 6:38 PM Age: 46 years old Clinical indication: Injury or trauma; Fall; Blunt trauma; Patient HX: Multiple fals, bruising to right side of face, lac on eye lid TECHNIQUE: Imaging protocol: Computed tomography images of the cervical spine without contrast. Radiation optimization: All CT scans at this facility use at least one of these dose optimization techniques: automated exposure control; mA and/or kV adjustment per patient size (includes targeted exams where dose is matched to clinical indication); or iterative reconstruction. COMPARISON: CT CERVICAL SPINE WO CON 07/17/2021 4:37 AM FINDINGS: Bones/joints: No acute fracture or malalignment. Straightening of physiologic cervical lordosis. Discs/Spinal canal/Neural foramina: No significant spinal canal stenosis or neuroforaminal narrowing. Prevertebral Space: No prevertebral soft tissue edema. Lungs: No acute abnormality or suspicious mass lesion in the visualized lung apices. Soft tissues: Unremarkable. IMPRESSION: 1. No acute osseous abnormality in the cervical spine. 2. Straightening of physiologic cervical lordosis, which may be related to patient positioning or muscle spasm.
[2022-02-03 18:44] LABS: Basophils % 0.9 % (0.1-2.0); Eosinophils # 0.1 K/mm3 (0.0-0.4); Eosinophils % 2.3 % (0.1-12.0); Hemoglobin 9.7 g/dL (12.2-16.2); Lymphocytes # 1.2 K/mm3 (0.7-4.5); Lymphocytes % 29.8 % (10-50); Mean Corpuscular Hemoglobin 32.2 pg (27.0-31.2); Mean Corpuscular Volume 97.6 fl (81-99); Mean Platelet Volume 9.6 fl (7.4-10.4); Monocytes # 0.2 K/mm3 (0.1-1.0); Monocytes % 5.2 % (1.7-9.3); Neutrophils # 2.4 K/mm3 (1.8-7.8); Neutrophils % 61.8 % (37.0-80.0); Platelet Count 114 K/mm3 (142-424); Red Cell Distribution Width 24.6 % (11.5-17.5); White Blood Count 3.9 K/mm3 (4.8-10.8)
--- NOTE | 2022-02-03 18:45 | PC.NURSE ---
PT has IV unable to get blood with this stick and was ok to draw a few tubes of blood although unsuccessful to get all blood ordered. Pt refusing any more lab sticks. aware
[2022-02-03 18:53] LABS: Hematocrit 29.3 % (37.0-47.0)
[2022-02-03 18:57] LABS: Chloride 99 mmol/L (98-107)
[2022-02-03 18:58] LABS: Sodium 134 mmol/L (136-145)
[2022-02-03 19:00] LABS: Alanine Aminotransferase 29 U/L (12-78); Alkaline Phosphatase 325 U/L (38-126); Anion Gap 10.3 mEq/L (5-15); Aspartate Amino Transferase 181 U/L (14-36); Bilirubin,Total 0.9 mg/dl (0.2-1.3); Blood Urea Nitrogen 3 mg/dl (7-17); Carbon Dioxide 27 mmol/L (22.0-30.0); Creatinine Clearance Estimated 100 mL/min (50-200); Estimated Glomerular Filt Rate 77 ml/min (>60); GFR (African American) 93 ML/MIN (>60)
[2022-02-03 19:01] LABS: Albumin Level 2.4 g/dl (3.5-5.0); Albumin/Globulin Ratio 0.7 (1.1-1.8); Calcium 7.4 mg/dl (8.4-10.2); Ethyl Alcohol 17 mg/dl (0-10); Globulin 3.6 g/dL (1.3-3.2); Glucose 95 mg/dl (74-100); Potassium 2.3 mmoL/L (3.5-5.1)
--- NOTE | 2022-02-03 19:07 | INFXCTL.NOTE ---
Patient back from radiology by wheelchair with transmission technician
--- NOTE | 2022-02-03 19:43 | PC.NURSE ---
PT UPDATED. PT REPOSITIONED FOR COMFORT AND SNACKS PROVIDED.
--- NOTE | 2022-02-03 20:22 | PC.NURSE ---
Patient admitted to Dr. Landeros assigned to 206 with Etoh withdrawal.
[2022-02-03 20:38] LABS: Coronavirus 19, PCR Not Detected (NotDetected); Influenza A, PCR Not Detected (NotDetected); Influenza B, PCR Not Detected (NotDetected)
[2022-02-03 20:52] LABS: Benzodiazepines Screen,Urine Positive ng/ml (<200)
[2022-02-03 20:53] LABS: Amphetamine/Metha Screen,Urine Negative ng/ml (<1000)
[2022-02-03 20:54] LABS: Barbiturates Screen,Urine Negative ng/ml (<200)
[2022-02-03 20:55] LABS: Cannabinoid Screen,Urine Negative ng/ml (<50); Cocaine Screen,Urine Negative ng/ml (<300)
[2022-02-03 20:56] LABS: Methadone Screen,Urine Negative ng/ml (<300); Opiate Screen,Urine Negative ng/ml (<300)
[2022-02-03 20:57] LABS: Phencyclidine Screen,Urine Negative ng/ml (<25)
[2022-02-03 21:05] LABS: Activated Partial Thrombo Time 31.2 seconds (22.8-30.6); INR 1.14 (0.9-1.1); Prothrombin Time 12.8 seconds (10.1-12.5)
[2022-02-03 21:22] VITALS: BP 134/72; PULSE 100; RESP 18; TEMP 36.9; O2SAT 99
--- NOTE | 2022-02-03 21:30 | PC.NURSE ---
Patient confused walking around room bleeding from previous iv site. Stated she was ready to go home and she took it out. Dr. Jacobson in to see patient verbal order for Ativan 2 mg IV.
--- NOTE | 2022-02-03 21:43 | PC.NURSE ---
patient up to floor via wheelchair @ this time.
[2022-02-03 22:35] VITALS: BP 115/78; PULSE 113; RESP 17; TEMP 36.8; O2SAT 97; BMI 23.8
[2022-02-04 04:00] VITALS: BP 134/80; PULSE 104; RESP 17; TEMP 36.8; O2SAT 95
[2022-02-04 05:00] VITALS: BMI 23.8
--- NOTE | 2022-02-04 05:41 | PC.NURSE ---
Report received from Isidro Woody RN at 0345. Monitoring CIWA, medicating per MAR. IV infusing per order. Pt is 1:1 observation at this time for safety. Pt is currently in bed, sleeping quietly. SRNA at bedside w/ pt. Call light in reach.
--- NOTE | 2022-02-04 07:19 | HMH.PHAVTE ---
[facility] Pharmacy VTE Monitoring - Patient Demographics Admission date: 02/03/22 Report Date: 02/04/22 Time: 07:19 Allergies/Adverse Reactions: Patient Allergies SULFA (SULFONAMIDE) Allergy (Unknown, Uncoded 12/02/19 10:36) I-HIVES Height: 1.68 m Weight: 67.16 kg Patient Problems: Current Active Problems Hypokalemia (Acute) Alcohol withdrawal (Acute) Multiple falls (Acute) Facial contusion (Acute) Lumbar transverse process fracture (Acute) Sternal fracture (Acute) - VTE Risk Labs: VTE Related Lab Results Hgb 9.7 g/dL (12.2-16.2) L 02/03/22 18:27 Hct 29.3 % (37.0-47.0) L 02/03/22 18:27 Plt Count 114 K/mm3 (142-424) L 02/03/22 18:27 PT 12.8 seconds (10.1-12.5) H 02/03/22 20:45 INR 1.14 (0.9-1.1) H 02/03/22 20:45 APTT 31.2 seconds (22.8-30.6) H 02/03/22 20:45 BUN 3 mg/dl (7-17) L 02/03/22 18:27 Creatinine 0.80 mg/dl (0.52-1.04) 02/03/22 18:27 Estimated Creat Clear 100 mL/min (50-200) 02/03/22 18:27 VTE Risk Level: Moderate Risk - Prophylaxis VTE Prophylaxis Ordered?: Yes Types of VTE Prophylaxis: TEDS Knee High Location of Applied Device: Bilateral Lower Extremeties
[2022-02-04 07:50] VITALS: BP 130/78; PULSE 88; RESP 18; TEMP 37; O2SAT 96
[2022-02-04 08:00] VITALS: O2SAT 96
--- NOTE | 2022-02-04 10:47 | SW/DCPLANNER ---
Addendum entered by Violeta Akins 02/05/22 13:42: This patient will return to [facility] outpatient wound care after discharge. Addendum entered by Violeta Akins 02/05/22 12:35: Mariola boyd/ [facility]: has denied admission for this patient at this time. Addendum entered by Violeta Akins 02/05/22 10:29: I followed up Mariola at [facility] regarding referral. Mariola stated that she is going to speak with MD regarding referral then call me back. Original Note: I spoke with this patient briefly this AM regarding plans once medically stable for discharge. Patient was continuously in and out of sleep but stated that she resides on [address] [place] [address] here in [place] with friends. Patient also expressed an interest in [facility] in [place]. Patient information has been faxed to [facility]. Also, patient's friend (Troy) has called and stated that he will be here this afternoon: I will follow up with friend once he is at [facility]. I will also follow up with [facility] once information is reviewed.
--- NOTE | 2022-02-04 12:51 | HMH.HP ---
*Admission Date: 02/03/22 *Chief complaint: weakness *History of present illness: this patient presented to the ed c/o weakness and falling over the past 5 days. Pain in lower right back and pelvic area, night sweating and nausea. Friend states pt came to him 5 days ago with a bruise around her right eye, right breast and bilateral legs stating she had fallen. Then she fell again 3 days ago causing a cut on her bruised eye. Friend brought her in because he is concerned with the pt confusion today in which she was calling him Jarrett and seeing people in the corner that wasnt there. Friend states that he has been trying to get her sobber for the past 5 days with no alcohol although pt states that around 3pm when she got the shakes she took a couple shots to stop the shakes. Pt is A&O at this time including knowing who the friend is and his home address. Patient states that she fell 3 x 2 days ago because her legs got weak and gave out. She hit her face and has bruising of the face and she says she was brought in by friends and family because they were afraid she has a concussion. She says she did not want to be brought to the hospital. She admits to being a daily drinker, but has not drunk in 3 days until having 2 shots today to calm her shakes. She also complains of pain in her sternum from the fall. She has lower back pain. She does not have any abdominal pain. Denies hip pain or pains in the upper extremities. Patient states that she had abdominal surgery 5 months ago at [facility] for an abscess on her ovary that ruptured. She says she went septic and had to be transferred to [facility] and was on the ventilator for 2 and half weeks. She says that she eventually was sent to rehab at [facility] and she thinks that she has been out since mid December. She says that she lives with her mother for a few weeks afterwards and was getting outpatient wound care and physical therapy, but she says she got mad at her mom and left her residence and has ceased going to therapy and wound care since. Her abdominal incision wound is still healing. However, she says it is not painful. Her abdomen has been distended ever since her original surgery, although it has been decreasing in size - pt was admitted at this time [facility] History I have reviewed the patient's past medical history: Yes Medical History: Reports:: Anxiety, Depression, Hypertension Denies:: Cancer, Diabetes Mellitus Type 1, Diabetes Mellitus Type 2, Internal Pacemaker, MRSA *Have you ever received a pneumonia vaccine?: No *Have you received a flu vaccine this season?: No Other Surgeries: Yes: , Other (ovarian cyst). No: Pacemaker Amputation: No Fractures: No - *Social History Smoking Status: Current every day smoker Tobacco Type: cigarettes # Packs/Day (cigarettes): 1 Alcohol Intake: current Alcohol Intake Frequency:: a few times a week Substance Use Type: denies use *Occupational Status:: unemployed Housing: house Household Members: significant other, family, children *Travel in the last 8 weeks: None - Psychiatric History Pschychiatric History:: Reports:: Anxiety, Depression Family Hx:: Unable to obtain Review of Systems - Review of Systems Review of systems:: pertinent systems reviewed and negative unless documented below - Constitutional Denies fever(s) - Eyes Denies change in vision - ENT Denies sore throat - *Cardiovascular Denies shortness of breath - *Respiratory Denies cough - *Gastrointestinal Denies abdominal pain - *Genitourinary Denies blood in urine - *Musculoskeletal Denies joint pain - Integumentary/Breasts Denies rash - *Neurologic Reports weakness (Leg weakness that caused falls), Denies numbness - Psychiatric Reports behavioral changes Meds Home Medications Medication Instructions Recorded Confirmed Type Buspirone HCl [Buspar 5mg tablet] 5 mg PO TID 02/04/22 02/04/22 History Folic Acid
[2022-02-04 13:20] LABS: Anion Gap 5.6 mEq/L (5-15); Blood Urea Nitrogen 2 mg/dl (7-17); Calcium 7.2 mg/dl (8.4-10.2); Carbon Dioxide 32 mmol/L (22.0-30.0); Chloride 105 mmol/L (98-107); Creatinine Clearance Estimated 123 mL/min (50-200); Estimated Glomerular Filt Rate 107 ml/min (>60); GFR (African American) 130 ML/MIN (>60); Glucose 93 mg/dl (74-100); Sodium 140 mmol/L (136-145)
[2022-02-04 13:42] LABS: Potassium 2.6 mmoL/L (3.5-5.1)
--- NOTE | 2022-02-04 14:44 | HMH.PHAINT ---
MEDICATION RECONCILIATION COMPLETED ON PATIENT USING EXTERNAL FILL HISTORY FROM PHARMACY. -MARIANNE JACOBO, DARLENED
[2022-02-04 15:42] VITALS: BP 133/92; PULSE 107; RESP 16; TEMP 36.7; O2SAT 99
[2022-02-04 20:00] VITALS: BP 134/91; PULSE 102; RESP 20; TEMP 36.9; O2SAT 94
[2022-02-05 04:00] VITALS: BP 145/110; PULSE 90; RESP 18; TEMP 36.9; O2SAT 98
--- NOTE | 2022-02-05 04:00 | PC.NURSE ---
0400 NO ISSUES NOTED, PT COMPLAINS OF PAIN THROUGH THE NIGHT AND MEDICATED X1, PT ALERT AND ORIENTED BUT SLEPT WELL MOST OF NIGHT, NO OTHER ISSUES NOTED, VSS
[2022-02-05 05:00] VITALS: BMI 24.2
[2022-02-05 06:15] LABS: Basophils % 0.8 % (0.1-2.0); Eosinophils # 0.1 K/mm3 (0.0-0.4); Eosinophils % 1.9 % (0.1-12.0); Hematocrit 27.9 % (37.0-47.0); Hemoglobin 8.8 g/dL (12.2-16.2); Lymphocytes # 0.9 K/mm3 (0.7-4.5); Lymphocytes % 23.3 % (10-50); Mean Corpuscular HGB Conc 31.6 g/dL (31.8-35.4); Mean Corpuscular Hemoglobin 31.6 pg (27.0-31.2); Mean Corpuscular Volume 100.1 fl (81-99); Mean Platelet Volume 9.5 fl (7.4-10.4); Monocytes # 0.3 K/mm3 (0.1-1.0); Monocytes % 6.8 % (1.7-9.3); Neutrophils # 2.6 K/mm3 (1.8-7.8); Neutrophils % 67.2 % (37.0-80.0); Platelet Count 150 K/mm3 (142-424); Red Blood Count 2.78 M/mm3 (4.20-5.40); Red Cell Distribution Width 24.9 % (11.5-17.5); White Blood Count 3.8 K/mm3 (4.8-10.8)
[2022-02-05 06:46] LABS: Anion Gap 5.1 mEq/L (5-15); Blood Urea Nitrogen 2 mg/dl (7-17); Calcium 7.3 mg/dl (8.4-10.2); Carbon Dioxide 31 mmol/L (22.0-30.0); Chloride 106 mmol/L (98-107); Creatinine Clearance Estimated 125 mL/min (50-200); Estimated Glomerular Filt Rate 107 ml/min (>60); GFR (African American) 130 ML/MIN (>60); Glucose 90 mg/dl (74-100); Potassium 3.1 mmoL/L (3.5-5.1); Sodium 139 mmol/L (136-145)
[2022-02-05 07:58] VITALS: BP 162/90; PULSE 110; RESP 19; TEMP 36.8; O2SAT 98
[2022-02-05 08:00] VITALS: O2SAT 98
--- NOTE | 2022-02-05 12:28 | HMH.DCSUM ---
General - General Admission date:: 02/03/22 Discharge date: 02/05/22 HPI HPI: this patient presented to the ed c/o weakness and falling over the past 5 days. Pain in lower right back and pelvic area, night sweating and nausea. Friend states pt came to him 5 days ago with a bruise around her right eye, right breast and bilateral legs stating she had fallen. Then she fell again 3 days ago causing a cut on her bruised eye. Friend brought her in because he is concerned with the pt confusion today in which she was calling him Jarrett and seeing people in the corner that wasnt there. Friend states that he has been trying to get her sobber for the past 5 days with no alcohol although pt states that around 3pm when she got the shakes she took a couple shots to stop the shakes. Pt is A&O at this time including knowing who the friend is and his home address. Patient states that she fell 3 x 2 days ago because her legs got weak and gave out. She hit her face and has bruising of the face and she says she was brought in by friends and family because they were afraid she has a concussion. She says she did not want to be brought to the hospital. She admits to being a daily drinker, but has not drunk in 3 days until having 2 shots today to calm her shakes. She also complains of pain in her sternum from the fall. She has lower back pain. She does not have any abdominal pain. Denies hip pain or pains in the upper extremities. Patient states that she had abdominal surgery 5 months ago at [facility] for an abscess on her ovary that ruptured. She says she went septic and had to be transferred to [facility] and was on the ventilator for 2 and half weeks. She says that she eventually was sent to rehab at [facility] and she thinks that she has been out since mid December. She says that she lives with her mother for a few weeks afterwards and was getting outpatient wound care and physical therapy, but she says she got mad at her mom and left her residence and has ceased going to therapy and wound care since. Her abdominal incision wound is still healing. However, she says it is not painful. Her abdomen has been distended ever since her original surgery, although it has been decreasing in size - pt was admitted at this time Hospital Course Hospital Course: 46-year-old female patient presented to the [facility] emergency department with reports of weakness and multiple falls in the past 5 days. She reports pain right lower back and pelvic area as well as pain in face along with multiple bruises and abrasion above right, ecchymosis also noted to right breast and bilateral lower extremities. She reports she is fallen multiple times and is currently trying to remain sober. She reports her legs gave out after she became weak and denies loss of consciousness. Alcoholism Encouraged to stop drinking and alcoholics anonymous encouraged Hypokalemia Potassium 3.1 and replenished Lumbar transverse process fracture L-spine CT reveals Nondisplaced fracture through the right-sided transverse process at L1. Sternal fracture CT reveals*subtle irregularity of the anterior cortex of the mid sternum is which may be chronic or may be secondary to a subtle nondisplaced fracture Anxiety She denies any anxiety at present Will be discharged on home medications including hydroxyzine as needed, buspirone, and Seroquel Thrombocytopenia Platelets are currently at 150 Anemia H/H currently 8.8/27.9, she denies any visible blood in urine or stool. We will follow hemoglobin outpatient Non-healing Surgical wound Will sched outpatient wound clinic visits 46-year-old female patient resting quietly in bed with eyes open, she denies any chest pain, shortness of breath, or other concerns/needs during the night. She does have a nonhealing surgical wound to her midline abdominal area and states that she will return to the [facility]
--- NOTE | 2022-02-05 13:27 | HMH.PTWOUND ---
Rehab Inpt Wound Evaluation Rehab IP Wound Evaluation Start: 02/05/22 12:38 Freq: ONCE Status: Active Protocol: Document 02/05/22 13:20 MANASA (Rec: 02/05/22 13:27 [email or web address] [id number]) Rehab PT Wound Assessment Patient Status Premedicated Prior to Dressing Change No Subjective Subjective Pt only responded non-verbally by nodding head when therapist stated who he was and why he was there. Pt nodded when asked if therapist could assess wound. Pt drifted in and out of sleep while dressing wound. No verbal or non-verbal signs of discomfort dressing wound Wound Lower Medial Abdomen Wound Type healing dehisced incision Wound Length (cm) 8 Wound Width (cm) 3 Wound Bed Appearance Dusky Red,[place],Granulation Percentage Granulated (%) 100 Wound Margins Description Well Defined Surrounding Tissue Appearance [place] Wound Drainage Description None Drainage Amount None Drainage Odor No Odor Dressing Status Open to Air Primary Dressing Medicated Gauze Pad Comment vaseline gauze Wound Secondary Dressing Type Film Dressing Comment tegederm Wound Debridement Amount of Tissue None Removed Dressing Change Date 02/05/22 Dressing Change Patient Tolerance Tolerated Well Plan/Recommendation Comment Wound clean and healthy but dry. Vaseline gauze used as primary dressing to soften wound bed. no debridement necessary, wound care will continue to follow pt. Nsg to change dressing Q24, pt would benefit from wound care as OP or HH Eval Complexity Eval Charge Codes 88623 - Low Complexity PHYSICIAN CERTIFICATION: I certify the specified therapy services for Betty Monsalve are required, authorized, and reviewed every 30 days.
--- NOTE | 2022-02-05 14:18 | PC.NURSE ---
Mitchell Mayfield PT dressing change once daily with Vaseline gauze and tegaderm
[2022-02-05 16:00] VITALS: BP 163/108; PULSE 106; RESP 16; TEMP 37.1; O2SAT 96
--- NOTE | 2022-02-05 17:11 | PC.NURSE ---
all patient meds have been returned to her and she place them in her purse
--- NOTE | 2022-02-05 17:12 | CARE MANAGER ---
Patient stated to nurse that she did not have a ride home. I called [employer] and set up transport home. Patient now states that she has a family member coming to get her. Nurse, Carolann spoke with family member via phone who say they will be here following a chiropractic appointment. [facility] cancelled.
--- NOTE | 2022-02-06 12:28 | CARE MANAGER ---
Patient was set up for wound care here at [facility] on 02.05.22, order was faxed to outpatient.
--- NOTE | 2022-02-06 14:34 | CARE MANAGER ---
Contacted patient related to follow up from hospital discharge. Patient states that her abdomen is swollen and tender. She is not sure why. Her bowels have moved and kidneys are functioning. She states that she was supposed to have prescriptions called in and she isn't sure what pharmacy it was supposed to be. After research figured out there was no medication to be picked up by here at discharge. Reminded her of appointment next week and also discussed wound care. Patient states she didn't go today and we discussed the importance of doing this. She states she will get here today or tomorrow.
== END 2022-02-05 17:20 | disposition home or self-care (01) ==
LOC: ER 20:20 → 2ND 20:46
PROVIDERS: Nurse Practitioner Family; Admitting Provider Emergency Medicine; Emergency Provider Emergency Medicine; PCP Emergency Medicine; Visit Provider Emergency Medicine
DX: F10.230 Alcohol dependence with withdrawal, uncomplicated (principal); R29.6 Repeated falls; I10 Essential (primary) hypertension; F17.210 Nicotine dependence, cigarettes, uncomplicated; Z79.899 Other long term (current) drug therapy; E87.6 Hypokalemia; Y90.0 Blood alcohol level of less than 20 mg/100 ml; S22.20XA Unspecified fracture of sternum, initial encounter for closed fracture; S32.018A Other fracture of first lumbar vertebra, initial encounter for closed fracture; W01.0XXA Fall on same level from slipping, tripping and stumbling without subsequent striking against object, initial encounter; Z91.81 History of falling; Z20.822 Contact with and (suspected) exposure to COVID-19
CPT/HCPCS: 36415; 70450; 70486; 71250; 72125; 72128; 72131; 72170; 80048; 80053; 80305; 81025; 85025; 85610; 85730; 99285; C9803; G0378; U0003; U0005

== ENCOUNTER 2022-02-11 16:51 | Emergency (ER) | payer OTHER, SELFPAY ==
[2022-02-11 16:53] VITALS: BP 153/68; PULSE 99; RESP 18; TEMP 37.2; O2SAT 98; BMI 31.8
--- NOTE | 2022-02-11 17:26 | CT_ITS ---
PROCEDURE INFORMATION: Exam: CT Abdomen And Pelvis Without Contrast Exam date and time: 02/11/2022 5:36 PM Age: 46 years old Clinical indication: Abdominal pain; Generalized; Additional info: Abd pain TECHNIQUE: Imaging protocol: Computed tomography of the abdomen and pelvis without contrast. Radiation optimization: All CT scans at this facility use at least one of these dose optimization techniques: automated exposure control; mA and/or kV adjustment per patient size (includes targeted exams where dose is matched to clinical indication); or iterative reconstruction. COMPARISON: CT ABDOMEN PELVIS W CON 08/23/2021 11:23 AM FINDINGS: Limitations: Photon starvation artifact related to patient's arm positioning and streak artifact from patient's jewelry severely degrades images, limiting sensitivity of exam. Diaphragm: Small hiatal hernia, unchanged. Liver: Fatty liver. Hepatomegaly, measuring 19 0 cm in craniocaudal axis. Gallbladder and bile ducts: Gallbladder is partially contracted. No calcified gallstones. Pancreas: Unremarkable. Spleen: Scattered punctate calcifications in the spleen compatible with sequelae of prior granulomatous disease, unchanged. Adrenal glands: Unremarkable. Kidneys and ureters: Punctate (2-3 mm) non-obstructing stones in the bilateral renal pelvises. No hydronephrosis. Stomach and bowel: Colonic diverticulosis without inflammatory changes. Appendix: Appendix is not confidently identified. Intraperitoneal space: Trace ascites. No pneumoperitoneum. Vasculature: Mild amount of calcific arterial atherosclerosis. No abdominal aortic aneurysm. Diffuse mesenteric vascular congestion. Lymph nodes: Unremarkable. Urinary bladder: Bladder is decompressed, limiting evaluation. Reproductive: Tubular metallic foreign body located between the labia near the vaginal introitus, of unclear clinical significance. Bones/joints: No acute osseous abnormality. Soft tissues: Post-operative changes in the anterior abdominal wall and lower abdominal rectus diastasis, new since most recent CT abdomen/pelvis performed on 08/23/2021. Bilateral fat containing inguinal hernias. IMPRESSION: 1. Trace ascites. 2. Fatty liver and hepatomegaly. 3. Punctate (2-3 mm) non-obstructing renal stones in the bilateral kidneys. 4. Colonic diverticulosis without evidence of acute diverticulitis. 5. Additional chronic ancillary findings are unchanged from prior exam, as detailed above.
[2022-02-11 17:37] LABS: Microscopic, Urine URINE MICROSCOPIC (MICROSCOPIC)
[2022-02-11 17:42] LABS: Appearance,Urine CLEAR (Clear); Bilirubin,Urine Negative (Negative); Blood, Urine Negative (Negative); Color,Urine YELLOW (Yellow); Glucose,Urine (UA) Negative (Negative); Ketones,Urine Negative (Negative); Leukocyte Esterase,Urine Negative (Negative); Nitrate,Urine Negative (Negative); PH,Urine 5.5 (5.0-8.5); Protein,Urine TRACE (Negative); Specific Gravity, Urine >= 1.030 (1.005-1.030); Urobilinogen,Urine 0.2 EU/dl (0.2)
[2022-02-11 17:45] LABS: Urine Pregnancy, HCG Qual. Negative (Negative)
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
[2022-02-11 18:10] LABS: Bacteria,Urine Trace /lpf
--- NOTE | 2022-02-11 18:30 | PC.NURSE ---
pt has refused v/s and refused to keep b/p cuff and pulse ox on. notified
--- NOTE | 2022-02-11 19:13 | XR_ITS ---
PROCEDURE INFORMATION: Exam: XR Chest Exam date and time: 02/11/2022 7:15 PM Age: 46 years old Clinical indication: Pain; Chest pressure; Additional info: Cp-chest pain -- patient unable to remove bra she was handcuffed -- police with patient and since no female officer available bra was not removed TECHNIQUE: Imaging protocol: XR of the chest. Views: 1 view. COMPARISON: CT CHEST WO CON 02/03/2022 6:44 PM FINDINGS: Lungs: Lungs are clear. Pleural spaces: No pleural effusion. No pneumothorax. Heart/Mediastinum: Cardiomediastinal silouhette is within normal limits. Bones/joints: No acute osseous abnormality. Soft tissues: Unremarkable. IMPRESSION: No acute findings.
--- NOTE | 2022-02-11 19:17 | PC.NURSE ---
RAD at bedside
--- NOTE | 2022-02-11 19:17 | PC.NURSE ---
pt refused to have blood work obtained
--- NOTE | 2022-02-11 19:23 | ECG_ITS ---
APPROVED REPORT Exam: Resting ECG HR:86 bpm ECG Measurements Heart Rate 86 AXES HI 128 P 48 QRSd 74 QRS 61 QT 412 T 64 QTc 455 Conclusion SINUS RHYTHM NORMAL ECG UNCONFIRMED REPORT Electronically signed by : Talon Snyder MD 02/12/2022 21:21:49
[2022-02-11 19:47] VITALS: BP 135/85; PULSE 70; RESP 16; TEMP 36.8; O2SAT 98
== END 2022-02-11 19:48 | disposition home or self-care (01) ==
PROVIDERS: Emergency Provider Student in an Organized Health Care Education/Training Program; PCP Family Medicine
DX: R10.84 Generalized abdominal pain (principal); F10.229 Alcohol dependence with intoxication, unspecified; K70.30 Alcoholic cirrhosis of liver without ascites; F17.210 Nicotine dependence, cigarettes, uncomplicated; Z88.2 Allergy status to sulfonamides; Z79.899 Other long term (current) drug therapy
CPT/HCPCS: 71045; 74176; 81001; 81025; 93005; 99284

== ENCOUNTER 2022-03-20 17:51 | Emergency (ER) | payer OTHER, SELFPAY ==
[2022-03-20 18:00] VITALS: BP 116/57; PULSE 78; RESP 17; TEMP 36.8; O2SAT 97; BMI 26.6
--- NOTE | 2022-03-20 18:02 | HMH.EDGENADL ---
ED Disposition Clinical Impression: Visit for wound check Disposition: Xfer Other Condition on Discharge: Good Instructions: DI for Wound Dehiscence Referrals: Shantanu Landeros MD [Primary Care Provider] - Time of Disposition: 18:08 - Critical Care Critical Care Time: No Attestation: On 03/20/22, the high probability of a clinically significant, sudden or life threatening deterioration of the following system(s) required my full and direct attention, intervention and personal management. The time I documented below is in addition to time spent performing reported procedures but includes the following listed in this critical care notation. Medical Decision Making - Medical Records Medical records reviewed: Yes: I reviewed the patient's medical records. - Horace Inquiry Pt receiving controlled substance: No Orders (Tests/Meds): ORDERS Category Date Time Status EKG Request [ECG Request by /Bertram] Stat Y 03/20/22 18:02 Ordered - ECG Data Tracing #1 Sinus rhythm with ventricular rate of 93 bpm. QRS 80, QTc 476. No ST segment elevation. No arrhythmia. Medical Decision Narrative: In summary this is a 46-year-old female well-known to our emergency department, presenting to the emergency department for abdominal wound check. Patient clinically stable on arrival. Vital signs within normal limits. Abdominal wound appears to be healing quite well. There is only a small amount of superficial skin missing. The soft tissue is intact. Nontender to palpation. Triple antibiotic ointment applied. Wound dressed. After my initial evaluation, patient said she was having palpitations. [place] like her heart was skipping beats. No chest pain. EKG obtained. Shows sinus rhythm without evidence of ischemia or arrhythmia. On further reassessment, patient says she is feeling much better. She is tolerating oral intake. Recommended follow-up with her primary care doctor, Dr. Landeros. Stable for discharge to police custody. General Adult HPI - General Stated complaint: MEDICAL CLEARANCE Time Seen by Provider: 03/20/22 17:52 Mode of Arrival: Ambulatory Source of Information: Patient Limitations: No Limitations - History of Present Illness HPI narrative: 46-year-old female presenting to the emergency department for medical clearance for incarceration. Patient was being arrested for issues related to public intoxication and warrants. Told the arresting officers that she needed to come to the hospital, she has a wound on her abdomen that she needs checked out. It is a wound that she has had for greater than 6 months after surgery. She lesions healing, not sure. She has a little pain at the wound site. No deeper abdominal pain. No nausea, vomiting, fevers, chills, changes in bowel habits. No medications prior to arrival. - Related Data Home Medications Medication Instructions Recorded Confirmed Buspirone HCl [Buspar 5mg tablet] 5 mg PO TID 02/04/22 02/07/22 Folic Acid 1 mg PO DAILY 02/04/22 02/07/22 Metoprolol Succinate [Toprol XL 25 mg PO DAILY 02/04/22 02/07/22 25mg tablet] PARoxetine HCL [Paxil] 20 mg PO DAILY 02/04/22 02/07/22 Quetiapine Fumarate [Seroquel] 200 mg PO HS 02/04/22 02/07/22 Ropinirole HCl [Requip 1mg Tablet] 1 mg PO HS 02/04/22 02/07/22 Thiamine HCl [Vitamin B-1 100mg 100 mg PO DAILY 02/04/22 02/07/22 tablet] hydrOXYzine pamoate [Hydroxyzine 50 mg PO Q8HP PRN 02/04/22 02/07/22 Pamoate] Previous Rx's Medication Instructions Recorded cephalexin 500 mg capsule 500 mg PO Q8H 10 Days #30 cap 02/07/22 mupirocin 2 % topical ointment 1 applic TP TID #22 g 02/07/22 zolpidem 10 mg tablet 10 mg PO HS PRN #7 tab 02/07/22 Allergies Allergy/AdvReac Type Severity Reaction Status Date / Time Sulfa (Sulfonamide Allergy Unknown Hives Verified 02/04/22 08:15 Antibiotics) [facility] History - Hepatitis A Screen Attestation statement:: This patient has been screened
--- NOTE | 2022-03-20 18:03 | ECG_ITS ---
APPROVED REPORT Exam: Resting ECG HR:93 bpm ECG Measurements Heart Rate 93 AXES NV 137 P 43 QRSd 80 QRS 66 QT 426 T 64 QTc 476 Conclusion SINUS RHYTHM PROLONGED QT INTERVAL ABNORMAL ECG UNCONFIRMED REPORT Electronically signed by : Talon Snyder MD 03/21/2022 16:57:05
[2022-03-20 18:29] VITALS: BP 118/74; PULSE 70; RESP 17; TEMP 36.8; O2SAT 98
== END 2022-03-20 18:31 | disposition other institution (70) ==
PROVIDERS: Emergency Provider Emergency Medicine; PCP Emergency Medicine
DX: S30.92XD Unspecified superficial injury of abdominal wall, subsequent encounter (principal); Z02.89 Encounter for other administrative examinations
CPT/HCPCS: 93005; 99282

== ENCOUNTER → 2022-05-21 09:59 | Outpatient (CLI) | payer OTHER, SELFPAY ==
--- NOTE | 2022-05-21 09:59 | CT_ITS ---
FINAL REPORT CLINICAL HISTORY: incisional hernia COMPARISON: February 11, 2022 FINDINGS: Axial CT images of the abdomen and pelvis were obtained without intravenous contrast. Coronal reformatted images were also obtained.This study was performed with techniques to keep radiation doses as low as reasonably achievable (ALARA). Individualized dose reduction techniques using automated exposure control or adjustment of mA and/or kV according to the patient's size were employed. Abdomen: The lung bases are clear. There are multiple less than 3 mm nonobstructing renal stones. There is no hydronephrosis. There is gallbladder wall thickening with a small gallstone, cholecystitis is not excluded. The gallbladder wall thickening, however, is improved since the prior. The liver, spleen and pancreas have an unremarkable, unenhanced appearance. There is a large anterior abdomen wall hernia containing multiple nonobstructed bowel loops that is stable. There is some stranding next to small bowel loops in the right abdomen of uncertain significance but may represent localized inflammation. Pelvis: Images of the pelvis reveal no evidence of ureteral dilation or ureteral stone. There is descending and sigmoid colon diverticulosis with no evidence of diverticulitis. There are mild vascular calcifications. The appendix is not seen. Pelvic fluid and air has resolved since the prior exam. There is a possible small right ovarian cyst. IMPRESSION: Gallbladder wall thickening with a small gallstone, cholecystitis is not excluded. If indicated, a nuclear medicine hepatic biliary scan may be helpful. Stranding next to small bowel loops in the right abdomen of uncertain significance, may represent localized inflammation. Descending and sigmoid colon diverticulosis with no evidence of diverticulitis. Reviewed, Interpreted and Dictated by Warren García III, MD Transcribed by Melba Fischer Authenticated and [facility]
== END ==
PROVIDERS: PCP Emergency Medicine; Visit Provider Physician Assistant
DX: K43.2 Incisional hernia without obstruction or gangrene (principal)
CPT/HCPCS: 74176

== ENCOUNTER 2022-06-05 21:18 | Emergency (ER) | payer OTHER, SELFPAY ==
[2022-06-05 21:18] VITALS: BP 133/64; PULSE 115; RESP 18; TEMP 37.2; O2SAT 100; BMI 21.1
--- NOTE | 2022-06-05 21:25 | HMH.EDGENADL ---
Discharge Plan Disposition Chief Complaint: Seizure Prescriptions Prescriptions: No Action buspirone 5 mg tablet 5 mg PO TID Qty: 270 3RF folic acid 1 mg tablet 1 mg PO DAILY Qty: 90 3RF hydroxyzine pamoate 50 mg capsule 50 mg PO Q8HP PRN (Reason: Anxiety) Qty: 90 2RF metoprolol succinate 25 mg tablet extended release 24 hr 25 mg PO DAILY Qty: 90 3RF paroxetine HCl 20 mg tablet 20 mg PO DAILY Qty: 90 3RF quetiapine 200 mg tablet 200 mg PO HS Qty: 90 3RF ropinirole 1 mg tablet 1 mg PO HS Qty: 90 3RF thiamine mononitrate (vit B1) 100 mg tablet 100 mg PO DAILY Qty: 90 3RF acetaminophen-codeine 300-30 mg tablet 1 tab PO BID PRN (Reason: pain) Qty: 60 0RF lorazepam [Ativan] 0.5 mg tablet 0.5 mg PO DAILY PRN (Reason: panic attacks) Qty: 20 0RF zolpidem [Ambien] 10 mg tablet 10 mg PO HS PRN (Reason: sleep) Qty: 30 0RF mupirocin 2 % ointment 1 applic TP TID Qty: 22 5RF Referrals Follow up/Referrals: Provider,Referral, MD [Referring] - See instructions Instructions Patient Instructions: DI for Seizure (Not Epilepsy/Seizure Disorder), DI for Seizure Disorder -- Adult, DI for Seizure Disorder -- Child Discharge ED Provider: Latanya Arguelles Adult HPI General Chief complaint: Seizure Stated complaint: Seizure Time Seen by Provider: 06/05/22 21:25 Mode of Arrival: EMS Source of Information: Patient Limitations: No Limitations History of Present Illness HPI narrative: 47-year-old female presenting to the emergency department after seizure-like episode. Happened around 30 minutes prior to arrival. She was at home. Roommates called 911 for her. They states she was sitting on the couch when she suddenly became unconscious, had jerking, shaking of her arms. Her lips started to change color. They do believe she continued breathing during the event. By the time EMS arrived, she was somewhat pleasantly confused, but was awake. Seizure lasted maybe 5 minutes. Nothing that this is ever happened before. No history of seizures. No recent illness, fevers, chills, headache, neck pain. She does suffer from severe alcohol use disorder. Says she stopped drinking 2 days ago. Has not had much of an appetite, but is drinking water to stay hydrated. Denies falls or trauma. No tongue biting. No loss of bladder or bowel continence. No injury in the seizure Related Data Previous Rx's Medication Instructions Recorded mupirocin 2 % topical ointment 1 applic topical TID #22 grams 02/07/22 acetaminophen 300 mg-codeine 30 mg 1 tab PO BID PRN pain #60 tabs 05/15/22 tablet buspirone 5 mg tablet 5 mg PO TID Anxiety #270 tabs 05/15/22 folic acid 1 mg tablet 1 mg PO DAILY Supplement #90 tabs 05/15/22 hydroxyzine pamoate 50 mg capsule 50 mg PO Q8HP PRN Anxiety #90 caps 05/15/22 lorazepam 0.5 mg tablet (Ativan) 0.5 mg PO DAILY PRN panic attacks 05/15/22 #20 tabs metoprolol succinate 25 mg 25 mg PO DAILY Hypertension #90 05/15/22 tablet,extended release 24 hr tabs paroxetine HCl 20 mg tablet 20 mg PO DAILY MOOD #90 tabs 05/15/22 quetiapine 200 mg tablet 200 mg PO HS MOOD #90 tabs 05/15/22 ropinirole 1 mg tablet 1 mg PO HS Restless leg #90 tabs 05/15/22 thiamine mononitrate (vit B1) 100 100 mg PO DAILY Supplement #90 tabs 05/15/22 mg tablet zolpidem 10 mg tablet (Ambien) 10 mg PO HS PRN sleep #30 tabs 05/15/22 Allergies Allergy/AdvReac Type Severity Reaction Status Date / Time Sulfa (Sulfonamide Allergy Unknown Hives Verified 05/15/22 14:36 Antibiotics) [facility] Social History (Updated 05/17/22 @ 13:36 by VALENTIN Rivas) Smoking Status: Current every day smoker tobacco type: cigarettes packs per day: 1 alcohol intake: current substance use type: denies use current occupational status: unemployed Travel in the last 8 weeks: None household members: significant other, family and children housing: house caffeine: Yes ROS Obtain
--- NOTE | 2022-06-05 21:43 | ECG_ITS ---
APPROVED REPORT Exam: Resting ECG HR:113 bpm ECG Measurements Heart Rate 113 AXES ME 112 P 77 QRSd 82 QRS 79 QT 353 T 77 QTc 420 Conclusion SINUS TACHYCARDIA WITH SHORT ME INTERVAL MODERATE ST DEPRESSION [0.05+ mV ST DEPRESSION] ABNORMAL ECG UNCONFIRMED REPORT Electronically signed by : Talon Snyder MD 06/06/2022 19:28:43
--- NOTE | 2022-06-05 21:47 | PC.NURSE ---
PATIENT AGREEABLE TO ONE STICK WITH BUTTERFLY TO OBTAIN BLOOD FOR LABS. ONE STICK TO AC, PATIENT STATED THAT I NEEDED TO STOP THAT IT WAS HURTING. MD AWARE OF PATIENT REFUSAL.
[2022-06-05 22:00] VITALS: BP 121/74; PULSE 89; O2SAT 100
[2022-06-05 22:30] VITALS: BP 126/73; PULSE 83; O2SAT 100
[2022-06-05 22:45] LABS: Basophils % 0.6 % (0.1-2.0); Eosinophils # 0.1 K/mm3 (0.0-0.4); Eosinophils % 1.9 % (0.1-12.0); Hematocrit 27.4 % (37.0-47.0); Hemoglobin 8.4 g/dL (12.2-16.2); Lymphocytes % 15.2 % (10-50); Mean Corpuscular HGB Conc 30.7 g/dL (31.8-35.4); Mean Corpuscular Hemoglobin 24.6 pg (27.0-31.2); Mean Corpuscular Volume 80.1 fl (81-99); Mean Platelet Volume 9.4 fl (7.4-10.4); Monocytes # 0.3 K/mm3 (0.1-1.0); Monocytes % 4.7 % (1.7-9.3); Neutrophils # 5.2 K/mm3 (1.8-7.8); Neutrophils % 77.6 % (37.0-80.0); Platelet Count 262 K/mm3 (142-424); Red Blood Count 3.42 M/mm3 (4.20-5.40); Red Cell Distribution Width 20.4 % (11.5-17.5); White Blood Count 6.7 K/mm3 (4.8-10.8)
[2022-06-05 23:01] VITALS: BP 113/52; PULSE 88; O2SAT 100
[2022-06-05 23:13] LABS: Alanine Aminotransferase 149 U/L (12-78); Albumin Level 3.4 g/dl (3.5-5.0); Albumin/Globulin Ratio 0.9 (1.1-1.8); Alkaline Phosphatase 194 U/L (38-126); Anion Gap 16.4 mEq/L (5-15); Aspartate Amino Transferase 142 U/L (14-36); Bilirubin,Total 0.4 mg/dl (0.2-1.3); Blood Urea Nitrogen 15 mg/dl (7-17); Calcium 8.3 mg/dl (8.4-10.2); Carbon Dioxide 25 mmol/L (22.0-30.0); Chloride 99 mmol/L (98-107); Creatinine Clearance Estimated 74 mL/min (50-200); Estimated Glomerular Filt Rate 67 ml/min (>60); GFR (African American) 81 ML/MIN (>60); Globulin 3.7 g/dL (1.3-3.2); Glucose 113 mg/dl (74-100); Potassium 3.4 mmoL/L (3.5-5.1); Sodium 137 mmol/L (136-145); Total Protein,Serum 7.1 g/dl (6.3-8.2)
[2022-06-05 23:24] VITALS: BP 113/52; PULSE 90; RESP 16; TEMP 36.9; O2SAT 98
[2022-06-05 23:30] LABS: Ethyl Alcohol < 10 mg/dl (0-10)
== END 2022-06-05 23:25 | disposition left against medical advice (07) ==
PROVIDERS: Emergency Provider Emergency Medicine; PCP Emergency Medicine
DX: R56.9 Unspecified convulsions (principal); Z79.899 Other long term (current) drug therapy; F41.9 Anxiety disorder, unspecified; G47.00 Insomnia, unspecified; I10 Essential (primary) hypertension
CPT/HCPCS: 36415; 80053; 85025; 93005; 99283

== ENCOUNTER 2022-09-22 17:57 | Emergency (ER) | payer OTHER, SELFPAY ==
[2022-09-22 17:57] VITALS: BP 122/74; PULSE 112; RESP 18; TEMP 36.7; O2SAT 98; BMI 28.1
--- NOTE | 2022-09-22 18:08 | PC.NURSE ---
Officer Ric and LYNN Adame at
--- NOTE | 2022-09-22 18:25 | PC.NURSE ---
POLICE REMAIN WITH PT
--- NOTE | 2022-09-22 18:30 | PC.NURSE ---
patient to restroom with JUAN J [place]
--- NOTE | 2022-09-22 18:31 | PC.NURSE ---
Walked patient to bathroom and offered her help she stated she did not need help. When i tried putting a hat in the toilet she refused that as well
--- NOTE | 2022-09-22 18:54 | PC.NURSE ---
LAB NOTIFIED OF BLOOD DRAW
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
[2022-09-22 19:51] VITALS: BP 115/74; PULSE 91; RESP 18; TEMP 36.7; O2SAT 98
== END 2022-09-22 19:53 ==
PROVIDERS: Emergency Provider Emergency Medicine
DX: Z02.89 Encounter for other administrative examinations (principal); F17.210 Nicotine dependence, cigarettes, uncomplicated; F10.90 Alcohol use, unspecified, uncomplicated
CPT/HCPCS: 99283

== ENCOUNTER → 2022-12-27 10:44 | Outpatient (CLI) | payer OTHER, SELFPAY | PROVIDERS: PCP Emergency Medicine; Visit Provider Emergency Medicine | DX: Z79.899 Other long term (current) drug therapy (principal) ==

== ENCOUNTER → 2022-12-27 18:40 | Outpatient (CLI) | payer OTHER, SELFPAY ==
[2022-12-27 19:29] LABS: Amphetamine/Metha Screen,Urine Negative ng/ml (<1000); Barbiturates Screen,Urine Negative ng/ml (<200)
[2022-12-27 19:30] LABS: Benzodiazepines Screen,Urine Negative ng/ml (<200)
[2022-12-27 19:31] LABS: Cannabinoid Screen,Urine Negative ng/ml (<50); Cocaine Screen,Urine Negative ng/ml (<300)
[2022-12-27 19:32] LABS: Methadone Screen,Urine Negative ng/ml (<300); Opiate Screen,Urine Negative ng/ml (<300)
[2022-12-27 19:33] LABS: Phencyclidine Screen,Urine Negative ng/ml (<25)
== END ==
PROVIDERS: PCP Emergency Medicine; Visit Provider Emergency Medicine
DX: Z79.899 Other long term (current) drug therapy (principal)
CPT/HCPCS: 80305

== ENCOUNTER → 2023-02-24 14:30 | Outpatient (CLI) | payer OTHER, SELFPAY ==
[2023-02-24 13:50] LABS: Benzodiazepines Screen,Urine Negative ng/ml (<200)
[2023-02-24 13:51] LABS: Amphetamine/Metha Screen,Urine Negative ng/ml (<1000); Barbiturates Screen,Urine Negative ng/ml (<200)
[2023-02-24 13:52] LABS: Cannabinoid Screen,Urine Negative ng/ml (<50)
[2023-02-24 13:53] LABS: Cocaine Screen,Urine Negative ng/ml (<300); Methadone Screen,Urine Negative ng/ml (<300)
[2023-02-24 13:54] LABS: Opiate Screen,Urine Negative ng/ml (<300); Phencyclidine Screen,Urine Negative ng/ml (<25)
== END ==
PROVIDERS: PCP Emergency Medicine; Visit Provider Emergency Medicine
DX: N39.0 Urinary tract infection, site not specified (principal)
CPT/HCPCS: 80305; 87086; 87088

== ENCOUNTER → 2023-04-22 15:37 | Outpatient (CLI) | payer OTHER, SELFPAY ==
[2023-04-22 15:21] LABS: Iron 296 ug/dL (37-170)
[2023-04-22 15:22] LABS: Chol/HDL Ratio 5.3 (1-3.5); Cholesterol 217 mg/dl (140-200); HDL Cholesterol 41 mg/dl (40-60); Triglycerides 177 mg/dl (30-150); VLDL Cholesterol 35 mg/dL (0-40)
[2023-04-22 16:46] LABS: Direct LDL Cholesterol 117.99 mg/dL (100-129)
[2023-04-22 17:06] LABS: Thyroid Stimulating Hormone 2.42 uIU/mL (0.465-4.68)
== END ==
PROVIDERS: PCP Emergency Medicine; Visit Provider Emergency Medicine
DX: D64.9 Anemia, unspecified (principal); R79.0 Abnormal level of blood mineral
CPT/HCPCS: 80061; 83540; 84443

== ENCOUNTER 2023-10-01 15:13 | Outpatient (CLI) | payer OTHER, SELFPAY ==
--- NOTE | 2023-10-01 15:17 | XR_ITS ---
FINAL REPORT CLINICAL HISTORY: surgery clearance, hernia surgery, no chest symptoms or surgeries. FINDINGS: Two views of the chest were obtained. The heart size and pulmonary vascularity are within normal limits. The mediastinum is normal. No acute pulmonary abnormality is identified. There is no pneumothorax. The bony thorax is intact. IMPRESSION: No active cardiopulmonary disease. Reviewed, Interpreted and Dictated by Warren García III, MD Transcribed by Latoya Salgado Authenticated and [facility]
[2023-10-01 18:23] LABS: Basophils % 0.4 % (0.1-2.0); Eosinophils # 0.1 K/mm3 (0.0-0.4); Hematocrit 30.1 % (37.0-47.0); Hemoglobin 9.1 g/dL (12.2-16.2); Lymphocytes # 1.3 K/mm3 (0.7-4.5); Lymphocytes % 23.7 % (10-50); Mean Corpuscular HGB Conc 30.4 g/dL (31.8-35.4); Mean Corpuscular Hemoglobin 22.3 pg (27.0-31.2); Mean Corpuscular Volume 73.4 fl (81-99); Mean Platelet Volume 8.8 fl (7.4-10.4); Monocytes # 0.3 K/mm3 (0.1-1.0); Neutrophils # 3.9 K/mm3 (1.8-7.8); Neutrophils % 69.9 % (37.0-80.0); Platelet Count 351 K/mm3 (142-424); Red Cell Distribution Width 17.2 % (11.5-17.5); White Blood Count 5.5 K/mm3 (4.8-10.8)
[2023-10-01 18:31] LABS: Chloride 110 mmol/L (98-107); Potassium 3.8 mmoL/L (3.5-5.1); Sodium 142 mmol/L (136-145)
[2023-10-01 18:33] LABS: Alanine Aminotransferase 19 U/L (12-78); Aspartate Amino Transferase 32 U/L (14-36); Blood Urea Nitrogen 15 mg/dl (7-17); Estimated Glomerular Filt Rate 67 ml/min (>60); GFR (African American) 81 ML/MIN (>60)
[2023-10-01 18:34] LABS: Albumin Level 3.5 g/dl (3.5-5.0); Albumin/Globulin Ratio 1.1 (1.1-1.8); Alkaline Phosphatase 137 U/L (38-126); Anion Gap 14.8 mEq/L (5-15); Bilirubin,Total 0.3 mg/dl (0.2-1.3); Calcium 8.3 mg/dl (8.4-10.2); Carbon Dioxide 21 mmol/L (22.0-30.0); Globulin 3.1 g/dL (1.3-3.2); Glucose 114 mg/dl (74-100); Iron 22 ug/dL (37-170); Total Protein,Serum 6.6 g/dl (6.3-8.2)
[2023-10-01 18:47] LABS: Total Iron Binding Capacity 475 ug/dL (265-497)
[2023-10-01 19:25] LABS: Vitamin B12 373 pg/mL (239-931)
== END 2023-10-01 23:59 ==
LOC: RAD 15:14
PROVIDERS: PCP Internal Medicine; Visit Provider Internal Medicine
DX: Z01.818 Encounter for other preprocedural examination (principal); K46.9 Unspecified abdominal hernia without obstruction or gangrene; D64.9 Anemia, unspecified
CPT/HCPCS: 71046; 80053; 82607; 82728; 83540; 83550; 85025

== ENCOUNTER 2024-05-12 09:23 | Outpatient (CLI) | payer OTHER, SELFPAY ==
[2024-05-12 18:56] LABS: Basophils % 0.6 % (0.1-2.0); Eosinophils % 0.8 % (0.1-12.0); Hematocrit 29.4 % (37.0-47.0); Hemoglobin 7.8 g/dL (12.2-16.2); Lymphocytes # 1.1 K/mm3 (0.7-4.5); Lymphocytes % 18.7 % (10-50); Mean Corpuscular HGB Conc 26.4 g/dL (31.8-35.4); Mean Platelet Volume 9.3 fl (7.4-10.4); Monocytes # 0.3 K/mm3 (0.1-1.0); Monocytes % 5.6 % (1.7-9.3); Neutrophils # 4.2 K/mm3 (1.8-7.8); Neutrophils % 74.3 % (37.0-80.0); Platelet Count 346 K/mm3 (142-424); Red Blood Count 4.09 M/mm3 (4.20-5.40); Red Cell Distribution Width 21.8 % (11.5-17.5); White Blood Count 5.6 K/mm3 (4.8-10.8)
[2024-05-12 19:55] LABS: Thyroid Stimulating Hormone 1.06 uIU/mL (0.465-4.68)
[2024-05-12 20:13] LABS: Hemoglobin A1C 4.7 % (4.0-6.0)
== END 2024-05-12 23:59 | disposition home or self-care (01) ==
LOC: LAB.DROPOF 05-13 09:23
PROVIDERS: PCP Internal Medicine; Visit Provider Internal Medicine
DX: F41.1 Generalized anxiety disorder (principal)
CPT/HCPCS: 83036; 84443; 85025

== ENCOUNTER 2024-08-04 19:59 | Outpatient (CLI) | payer OTHER, SELFPAY ==
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
--- OUTSIDE RECORDS SUMMARY | 2024-08-04 20:01 | XMS_ITS | Encounter Summary ---
Author Organization Healthcare Address [address] [place] [address] Care Team Providers Care Book Illustrator Name Role Phone Shantanu Landeros MD Primary Care Provider [phone] Reason for Visit * Reason Comments Post-op Encounter Details Date Type Department Care Team (Late st Contact Info) Description 11/12/2023 3:30 PM EST Office Visit [facility] General Surgery [address], [address] [place] [address] Isaac Boone MD [address] [address] S/P repair of ventral hernia (Primary Dx); Gastroesophageal reflux disease, unspecified whether esophagitis present Social History Tobacco Use Types Packs/Day Years [...] and Family Not on file 02/27/2021 Attends Scientology Services Not on file 02/27 Active Member [...] Recorded Patient Health Questionnaire-2 Score 1 08/20/2023 [facility] - Occupational Stress Questionnaire Answer Date Recorded [...] place to sleep or slept in a longterm (including now)? 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 Not on file Not on f ile documented as of this encounter Last Filed Vital Signs Vital Sign Reading Time Taken Comments Blood Pressure 106/77 11/12/2023 3:10 PM EST Pulse 69 11/12/2023 3:10 PM EST Temperature 36.4 ??C (97.5 ??F) 11/12/2023 3:10 PM ES T Respiratory Rate - - Oxygen Saturation - - Inhaled Oxygen Concentration - - Weight 74.4 kg (164 lb 1.6 oz) 11/12/2023 3:10 P M EST Height 170.2 cm (5' 7 ) 11/12/2023 3:10 PM EST Body Mass Index 25.7 11/12/2023 3:10 PM EST documented in this encounter Miscellaneous Notes * Progress Notes - Cleo Thomas - 11/12/2023 3:30 PM EST Subjective Betty ROACH is a 48 y.o. female presenting 4 weeks post op from open ventral incisional hernia repair with obstruction, chronic incarceration, loss of domain, now s/p phasix implant, BL rectus abdominis release, excision of redundant soft tissue with vertical panniculectomy (10/07/23).Her 2 SID drains were removed on 10/17/23. Patient reports mild pain in RUQ, around where the SID drain was. This pain responds to tylenol and Advil. No other abdominal or incisional pain. She is adhering to ten pound weight restriction. She shares her diet has returned to normal, and is drinking 64 fl oz or more a day (primarily Gatorade). She continues to use her abdominal binder daily, removing when going to sleep. She also reports continued use of vaping, with daily vaping since the day aftersurgery. She continues to be bothered by reflux which she reports was an issue prior to surgery buthas become worse. She took a brief three day course of a PPI before discontinuing, in the past tried a PPI for reflux many years ago during which she reports helped, no on one know. She feels like reflux and heartburn have become more frequent, occurring during eating, and at bedtime primarily. Prior to surgery, she reports self-inducing vomiting prior to bed in order for her to sleep through the night comfortably. She has now modified her eating, taking small bite and eating her meals slowly. Patient endorses chills, itchiness at surgical sites. Patient denies nausea, vomiting, fevers, and drainage from wounds. Vital signs and medications were reviewed. Current Outpatient Medications Medication Sig Dispense Refill zolpidem (Ambien) 10 MG tablet Take 1 tablet (10 mg) by mouth at night if needed for sleep. gabapentin (Neurontin) 300 MG capsule Take 1 capsule (300 mg) by mouth 3 (three) times a day. 30 capsule 0 HYDROcodone-acetaminophen ([place]) 10-325 MG tablet Take 1 tablet (10 mg of hydrocodone) by mouth every 8 (eight) hours if needed for severe pain. 15 tablet 0 lidocaine (Lidoderm) 5 % patch Apply 1 patch topically 1 (one) time each day at the same time over 12 hours. Remove & discard patch within 12 hours or as directed by MD. 5 patch 0 methocarbamol (Robaxin) 500 MG tablet Take 1 tablet (500 mg) by mouth 3 (three) times a day for 15 days. 45 tablet 0 naloxone (Kloxxado) 8 mg/0.1 mL nasal spray 1. Give 1 spray in nostril for no/slow breathing or cannot wake after opioid use 2. Call 911 3. Repeat in other nostril if symptoms continue 1 each 0 pantoprazole (Protonix) 40 MG EC tablet Take 1 tablet (40 mg) by mouth 1 (one) time each day in themorning. Do not crush, chew, or split. 30 tablet 3 rOPINIRole (Requip) 1 MG tablet Take 1 tablet (1 mg) by mouth at night if needed. senna-docusate (Shira-Colace) 8.6-50 MG tablet Take 1 tablet by mouth 2 (two) times a day. 60 tablet0 No current facility-administered medications for this visit. Allergies Allergen Reactions Sulfadiazine Itching Objective Physical Exam Visit Vitals BP 106/77 (BP Location: Right arm, Patient Position: Sitting) Pulse 69 Temp 36.4 ??C (97.5 ??F) (Temporal) Ht 1.702 m (5' 7 ) Wt 74.4 kg (164 lb 1.6 oz) BMI 25.70 kg/m?? Constitutional: well developed, well nourished, and in no acute distress Psychiatric: oriented to time, place and person, mood and affect are within normal limits Incision midline; healing well and no erythema. Drain not present Assessment/Plan Problem List Items Addressed This Visit None 48 y.o., s/p open ventral incisional hernia repair with obstruction, chronic incarceration, loss ofdomain, now s/p phasix implant, BL rectus abdominis release, excision of redundant soft tissue withvertical panniculectomy with a(n) excellent outcome. Follow up - prn Pt Instructions: No lifting more than 10 pounds for 6 weeks from time of surgery. Tobacco avoidance for 3 months from time of surgery. PPI prescribed to help with reflux symptoms Cosigned by Isaac Boone MD at 11/15/2023 12:27 PM EST Associated attestation - Isaac Boone MD - 11/15/2023 12:27 PM EST I saw and evaluated the patient with the medical/RACKING TECHNICIAN/PA student. I discussed the case with the medical/RACKING TECHNICIAN/PA student and agree with the findings and plan as documented. I personally performed the Examand Medical Decision Making. documented in this encounter Plan of Treatment Not on file documented as of this encounter Visit Diagnoses Diagnosis S/P repair of ventral hernia- Primary Other postprocedural status Gastroesophageal reflux disease, unspecified whether esophagitis present documented in this encounter Additional Health Concerns Assessment Noted Time A fall risk assessment has been complete d for the patient 10/17/2023 3:54 PM EST A Body Mass Index follow-up plan has been documented for the patient 11/15/2023 12:27 PM EST documented as of this encounter Care Teams Book Illustrator Relationship Specialty Start Date End Date Shantanu Landeros MD [address] [place] [address] PCP - General 06/12/22 documented as of this encounter
--- OUTSIDE RECORDS SUMMARY | 2024-08-04 20:01 | XMS_ITS | Encounter Summary ---
Author Organization Healthcare Address [address] [place] [address] Care Team Providers Care Carburetor Mechanic Name Role Phone Shantanu Landeros MD Primary Care Provider [phone] Encounter Details Date Type Department Care Team (Latest Contact Info) Description 11/12/2023 Travel Social History Tobacco Use Types Packs/Day Years Used Date Smoking Tobacco: Former Cigarettes 1 32 Passive Smoke Exposure: Past Smokeless Tobacco: Never Alcohol Use Standard Drinks/Week Comments Not Currently [...] and Family Not on file 02/27/2021 Attends Gnosticist Services Not on file 02/27 Active Member [...] Recorded Patient Health Questionnaire-2 Score 1 08/20/2023 [facility] [place] [facility] Occup[facility] ional Health - Occupational Stress [...] place to sleep or slept in a half-way (including now)? 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 Not on f ile documented as of this encounter Plan of Treatment Not on file documented as of this encounter Visit Diagnoses Not on filedocumented in this encounter Additional Health Concerns Assessment Noted Time A fall risk assessment has been complete d for the patient 10/17/2023 3:54 PM EST A Body Mass Index follow-up plan has been documented for the patient 11/15/2023 12:27 PM EST documented as of this encounter Care Teams Carburetor Mechanic Relationship Specialty Start Date End Date Shantanu Landeros MD [address] [place], [place] [phone] PCP - General 06/12/22 documented as of this encounter
--- OUTSIDE RECORDS SUMMARY | 2024-08-04 20:01 | XMS_ITS | Encounter Summary ---
Author Organization Healthcare Address [address] [id number] Care Team Providers Care Bilingual Student Tutor Name Role Phone Shantanu Landeros MD Primary Care Provider [phone] Encounter Details Date Type Department Care Team (Late st Contact Info) Description 10/24/2023 Orders Only [facility] General Surgery [address], [address] [place] [address] Sarah Lacy L, MASTER FISHER [address] [place] [address] Social History Tobacco Use Types Packs/Day Years [...] and Family Not on file 02/27/2021 Attends Religion Services Not on file 02/27 Active Member [...] Recorded Patient Health Questionnaire-2 Score 1 08/20/2023 [facility] ional [facility] - Occupational Stress [...] place to sleep or slept in a assisted (including now)? 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
--- OUTSIDE RECORDS SUMMARY | 2024-08-04 20:02 | XMS_ITS | Encounter Summary ---
Author Organization Healthcare Address [address] [place] [address] Care Team Providers Care Cocoa Powder Mixer Operator Name Role Phone Shantanu Landeros MD Primary Care Provider [phone] Encounter Details Date Type Department Care Team (Latest Contact Info) Description 10/08/2023 Travel Social History Tobacco Use Types Packs/Day [...] and Family Not on file 02/27/2021 Attends [employer] Not on file 02/27 Active Member [...] Recorded Patient Health Questionnaire-2 Score 1 08/20/2023 [facility] [place] of Occupat ional Health - Occupational Stress [...] place to sleep or slept in a long-term (including now)? 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 on f ile documented as of this encounter Plan of Treatment Not on file documented as of this encounter Visit Diagnoses Not on filedocumented in this encounter Additional Health Concerns Assessment Noted Time A fall risk assessment has been complete d for the patient 08/20/2023 9:29 AM EST A Body Mass Index follow-up plan has been documented for the patient 10/13/2023 9:20 AM EST documented as of this encounter Care Teams Cocoa Powder Mixer Operator Relationship Specialty Start Date End Date Shantanu Landeros MD [address] [place], [place] [id number] PCP - General 06/12/22 documented as of this encounter
--- OUTSIDE RECORDS SUMMARY | 2024-08-04 20:02 | XMS_ITS | Encounter Summary ---
Author Organization Healthcare Address [address] [id number] Care Team Providers Care Creel Operator Name Role Phone Shantanu Landeros MD Primary Care Provider [phone] Reason for Visit * Auth/Cert (Routine) Specialty Diagnoses / Procedures Referred By Contac t Referred To Contact Diagnoses Incisional hernia with obstruction Incisional hernia with obstruction [K43.0] Procedures WI RPR AA HERNIA 1ST > 10 CM NCRC8/STRANGULATED [place] MUSCLE-SKIN FLAP,TRUNK COMPLEX REPAIR, HERNIA, VENTRAL Isaac Boone MD [address] [place] [id number] Phone: tel: fax: [facility] [address] [place] [address] Phone: tel: Referral ID Status Reason Start Date Expiration Date Visits Re quested Visits Authorized [id number] 1 1 Encounter Details Date Type Department Care Team (Late st Contact Info) Description 10/07/2023 7:08 AM EST - 10/13/2023 4:47 PM EST Hospital Encounter [facility] [address] [place] [address] Isaac Boone MD [address] [place] [phone] Status post split thickness skin graft (Primary Dx); Incisional hernia with obstruction Discharge Disposition: Home or Self Care Social History Tobacco Use Types Packs/Day Years [...] and Family Not on file 02/27/2021 Attends [employer] Not on file 02/27 Active Member [...] Recorded Patient Health Questionnaire-2 Score 1 08/20/2023 [facility] [place] [facility] Occupat ional Health - Occupational Stress [...] place to sleep or slept in a penitentiary (including now)? 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 Not on file Not on f ile documented as of this encounter Last Filed Vital Signs Vital Sign Reading Time Taken Comments Blood Pressure 140/80 10/13/2023 11:12 AM EST Pulse 92 10/13/2023 11:12 AM EST Temperature 36.9 ??C (98.4 ??F) 10/13/2023 11:[address] Respiratory Rate 16 10/13/2023 4:27 AM EST Oxygen Saturation 95% 10/13/2023 11:12 AM EST Inhaled Oxygen Concentration - - Weight 77.6 kg (171 lb 1.2 oz) 10/11/2023 7:50 P M EST Height 170.2 cm (5' 7.01 ) 10/11/2023 7:50 PM ES T Body Mass Index 26.79 10/11/2023 7:50 PM EST documented in this encounter Discharge Instructions * Discharge Instructions* Britta Lee MD - 10/13/2023 6:58 AM EST DIET: You may eat a regular diet as tolerated. WOUND CARE: Your 2 drains will remain until your clinic appointment. Continue drain care. Empty your drain at least once a day, or more if needed, and record your output. Keep your abdominal binder on at all times. ACTIVITY: No strenuous activity for at least [address] while taking narcotic pain medications. HYGIENE: Okay to shower. Allow warm, soapy water to run over your incision. Do not allow your incision to soak in a bath or pool for 2 weeks. NOTIFY PHYSICIAN IF: You develop a fever >102 or show other obvious signs of infection (shaking, chills, large volumes of pus draining from your wound). You have severe pain that is not able to be controlled with the medications you have been sent homewith. FOLLOW-UP: Follow-up with Dr. Boone in 1 week for drain removal. The clinic will call you with an appointment time. * Attachments The following attachments cannot be sent through Care Everywhere. * After Ventral Hernia Repair ??? Dr. Boone () (Mal[place]ian) * After Laparoscopic Ventral Hernia Repair ??? Dr. Boone ([place]) ([place]) * Surgical Site Infections, Preventing (Mal[place]ian) * Preventing Deep Vein Thrombosis After Surgery ([place]ian) * Taking Care of Your Drain Tube ([place]) ([place]) * How to Empty Your Drain After Surgery, Micb-uz-Cvlg ([place]ian) documented in this encounter Medications at Time of Discharge HYDROcodone-acet aminophen ([place]) 10-325 MG tablet Take 1 tablet (10 mg of hydrocodone) by mouth every 8 (eight) hours if needed for severe pain. 15 tablet 10/13/2023 lidocaine (Lidoderm) 5 % patch Apply 1 patch topically 1 (one) time each day at the same time over 12 hours. Remove & discard patch within 12 hours or as directed by MD. 5 patch 10/13/2023 naloxone (Kloxxado) 8 mg/0.1 mL nasal spray 1. Give 1 spray in nostril for no/slow breathing or cannot wake after opioid use 2. Call 911 3. Repeat in other nostril if symptoms continue 1 each 10/13/2023 rOPINIRole (Requip) 1 MG tablet Take 1 tablet (1 mg) by mouth at night if needed. 04/22/2023 zolpidem (Ambien) 10 MG tablet Take 1 tablet (10 mg) by mouth at night if needed for sleep. 04/22/2023 cyclobenzaprine (Flexeril) 5 MG tablet Take 1 tablet (5 mg) by mouth 3 (three) times a day for 7 days. 21 tablet 10/13/2023 4 senna-docusate (Azam-Colace) 8.6-50 MG tablet Take 1 tablet by mouth 2 (two) times a day. 60 tablet 10/13/2023 4 documented as of this encounter Miscellaneous Notes * Progress Notes - Isaac Boone MD - 10/13/2023 4:47 PM EST Physician Clarification Please review the following and provide your response below. Fluid and Electrolytes hyponatremia, YES - This condition was present on admission This documentation will become part of the patient's medical record. * Progress Notes - Isaac Boone MD - 10/13/2023 4:47 PM EST Physician Clarification Please review the following and provide your response below. CDI ANEMIA: Chronic anemia This documentation will become part of the patient's medical record. * Progress Notes - Destiney Patel RN - 10/13/2023 12:16 PM EST Case Management Discharge Note Rosendo LEVI 48 y.o. female CSN: [id number] Admission: 10/07/2023 7:08 AM Primary Problem: Incisional hernia with obstruction Primary Plant Senior Manager: Primary Caregiver: Self Assistance Available at Discharge: Pt will be staying with her cousin Puneet in [place], who canprovide any needed home support/transport. Housing Circumstances-Z Codes: na Patient Referred to Financial or Community Resources: CM provided numerous written documents with agency that might be able to assist with housing/food. Discharge Facility/Level of Care Needs: Discharge Facility/Level of Care Needs: 1-Home or Self Care Patient's Choice of Community Agency(s): na Patient/Family Anticipated Services at Transition: none DME/Equipment Needed after Discharge: none Equipment Currently Used at Home: none Readmission Within the Last 30 Days: na Medicare Documentation: na Follow-up: Pt will return to Dr Boone's clinic in for drain removal. Discharge Transportation: [employer]hasin Puneet. Follow Up Transport: cousin/other family. Additional Comments: CM met with pt today to review dc plans, pt agreeable and denies needs/concerns. Destiney Patel RN * Care Plan - Rashida Sharpe - 10/13/2023 8:48 AM EST Problem: Adult Inpatient Plan of Care Goal: Plan of Care Review Outcome: Ongoing, Progressing Goal: Patient-Specific Goal (Individualized) Outcome: Ongoing, Progressing Goal: Absence of Hospital-Acquired Illness or Injury Outcome: Ongoing, Progressing Goal: Optimal Comfort and Wellbeing Outcome: Ongoing, Progressing Goal: Readiness for Transition of Care Outcome: Ongoing, Progressing * Discharge Summary - Britta Lee MD - 10/13/2023 7:11 AM EST Hospitalization Admit Date/Time: 10/07/2023 7:08 AM Admitting Attending: Isaac Boone Discharge Date: 10/13/2023 Discharge Attending Physician: Isaac Boone MD PCP name and Address: Shantanu Landeros MD [address] [place] [address] Referring provider name and address: No referring provider defined for this encounter. Chief Concern, Brief History of Present Illness, and Hospital Course Rosendo LEVI is a 48 y.o. female admitted for postoperative recovery on 10/07/23 after undergoing open repair of her chronically incarcerated incisional hernia and loss of domain via mesh and local tissue advancement. This entailed partial excision of a previous split thickness skin graft at the anterior abdominal wall, bilateral transversus abdominis releases with rectus abdominis advancement flaps, and a vertical panniculectomy of the anterior abdominal wall. The postoperative course was uncomplicated and after recovery, the patient was transferred to the floor/ICU. Pain was initially controlled with IV pain medication and was later transitioned to oral pain medication, and diet was advanced as tolerated. The patient's hospital course was uncomplicated and it was felt that the patient had reached maximal benefit from hospitalization. On 10/13/23 were deemed appropriate for discharge to home. On day ofdischarge, the patient was afebrile and hemodynamically stable, tolerating a regular diet, the patient's pain was controlled on oral medications, they were ambulating well, voiding appropriately, passing flatus/BM, and tolerating oral intake. The patient was discharged on 10/13/23 to home and will return to clinic for routine post-procedurefollow up with Isaac Michel MD in 1 week for drain removal. Surgeries and Procedures COMPLEX VENTRAL HERNIA REPAIR WITH MESH, BILATERAL TRANSVERSES ABDOMINAL RELEASE, REMOVAL OF SKIN GRAFT (N/A) Medication List .. cyclobenzaprine 5 MG tablet Commonly known as: Flexeril Take 1 tablet (5 mg) by mouth 3 (three) times a day for 7 days. HYDROcodone-acetaminophen 10-325 MG tablet Commonly known as: [place] Take 1 tablet (10 mg of hydrocodone) by mouth every 8 (eight) hours if needed for severe pain. Kloxxado 8 mg/0.1 mL nasal spray Generic drug: naloxone 1. Give 1 spray in nostril for no/slow breathing or cannot wake after opioid use 2. Call 911 3. Repeat in other nostril if symptoms continue lidocaine 5 % patch Commonly known as: Lidoderm Apply 1 patch topically 1 (one) time each day at the same time over 12 hours. Remove & discard patch within 12 hours or as directed by . rOPINIRole 1 MG tablet Commonly known as: Requip Take 1 tablet (1 mg) by mouth at night if needed. senna-docusate 8.6-50 MG tablet Commonly known as: Azam-Colace Take 1 tablet by mouth 2 (two) times a day. zolpidem 10 MG tablet Commonly known as: Ambien Take 1 tablet (10 mg) by mouth at night if needed for sleep. Where to Get Your Medications These medications were sent to [id number] - [address] AT [facility] & [address] [address] cyclobenzaprine 5 MG tablet HYDROcodone-acetaminophen 10-325 MG tablet Kloxxado 8 mg/0.1 mL nasal spray lidocaine 5 % patch senna-docusate 8.6-50 MG tablet Discharge Diagnosis Medical Problems Active and Resolved Hospital Problems Hospital Incarcerated incisional hernia Status post split thickness skin graft * (Principal) Incisional hernia with obstruction Post Discharge Instructions DIET: You may eat a regular diet as tolerated. WOUND CARE: Your 2 drains will remain until your clinic appointment. Continue drain care. Empty your drain at least once a day, or more if needed, and record your output. Keep your abdominal binder on at all times. ACTIVITY: No strenuous activity for at least [address] while taking narcotic pain medications. HYGIENE: Okay to shower. Allow warm, soapy water to run over your incision. Do not allow your incision to soak in a bath or pool for 2 weeks. NOTIFY PHYSICIAN IF: You develop a fever >102 or show other obvious signs of infection (shaking, chills, large volumes of pus draining from your wound). You have severe pain that is not able to be controlled with the medications you have been sent homewith. FOLLOW-UP: Follow-up with Dr. Boone in 1 week for drain removal. The clinic will call you with an appointment time. Outpatient Follow-Up No future appointments. Test Results Pending At Discharge None Pertinent Physical Exam At Time of Discharge Physical Exam Constitutional: Appearance: Normal appearance. HENT: Head: Normocephalic and atraumatic. Nose: Nose normal. Eyes: Extraocular Movements: Extraocular movements intact. Pupils: Pupils are equal, round, and reactive to light. Cardiovascular: Rate and Rhythm: Normal rate and regular rhythm. Pulmonary: Effort: Pulmonary effort is normal. Abdominal: General: Abdomen is flat. Palpations: Abdomen is soft. Comments: Abdominal binder in place, Incisions are clean, dry, intact; Two SID drains with SS output Musculoskeletal: General: Normal range of motion. Skin: General: Skin is warm and dry. Neurological: General: No focal deficit present. Mental Status: She is alert and oriented to person, place, and time. Psychiatric: Mood and Affect: Mood normal. Behavior: Behavior normal. Discharge Disposition/Condition Disposition: Home Condition: Stable (s/sx potential problems absent or manageable) I spent >30 minutes of patient care and instruction time in preparation for this discharge. Cosigned by Isaac Boone MD at 10/13/2023 2:11 PM EST * Progress Notes - Miky Lama MD - 10/12/2023 8:18 AM EST General, Endocrine, & Metabolic Surgery Inpatient Progress Note 10/12/23 10:07 AM Rosendo LEVI HPI : 48 y.o. female admitted for postoperative recovery on 10/07/23 after undergoing a repair for her chronically incarcerated incisional hernia via mesh and abdominal wall reconstruction, including vertical panniculectomy. Subjective NAEON, vitals show significant improvement after transfusion. She does continue to frequently refuse lab work, pulse ox monitoring, vital checks. Eating large breakfast upon visit this morning, speaking unlabored and normal. Walked halls several times yesterday. No difficulty voiding, has had BM. Subjectively reports pain as a 9 out of 10, received her oxycodone one hour prior. Expressed concern about having to ride in a car to go home and that she is worried she is not well enough to do so, fears she is getting worse and not better postoperatively. Discussed that her refusal of objective clinical monitoring methods prohibits our evaluation of her postop recovery. We discussed her having met all goals for inpatient postoperative recovery and, regarding her pain expectations, that she willbe in some pain postoperatively, and pain which hinders ability to eat, drink, walk, using the restroom are reasons to remain in the hospital. Review of Systems: Relevant review of systems was obtained as able and is negative unless stated above in HPI. Objective Vital signs: Blood pressure (!) 143/87, pulse 99, temperature 36.7 ??C (98 ??F), resp. rate 16, height 1.702 m (5' 7.01 ), weight 77.6 kg (171 lb 1.2 oz), SpO2 94 %. Body mass index is 26.79 kg/m??. Physical Exam Not in acute distress, AAOx3 Non labored breathing, non cyanotic Focused abdominal exam: Abdominal binder in place, Incisions are clean, dry, intact; Two SID drains with SS output, endorses chest pain near drain tube entry sites Soft, non distended, appropriately tender to palpation, no guarding or rebound tenderness Labs: Results from last 7 days Lab Units 10/12/23 0415 10/10/23 0331 10/09/23 0333 WBC 10*3/uL 5.33 -- 10.34* HEMOGLOBIN g/dL 7.9* 6.7* 6.3* HEMATOCRIT % 26.6* 23.5* 23.0* PLATELETS 10*3/uL 212 -- 232 Assessment/Plan 48 y.o. female admitted for postoperative recovery on 10/07/23 after undergoing a repair for her chronically incarcerated incisional hernia via mesh and abdominal wall reconstruction, including vertical panniculectomy. Now 5 Days Post-Op with appropriate interval healing and HGB normalization. She continues to meet all inpatient goals for appropriate discharge to home, however her anxiety remains over discharge. Plan/Recommendations: Possible discharge this afternoon vs additional overnight stay Lidocaine patches at drain tube entry sites on bilateral chest wall - Regular diet, oral pain meds, scheduled APAP, - No narcotics until non-narcotics have been given first - Abdominal binder at all times - Ambulate four times a day - 2 SID drains, strip drains and record output Edited by: Miky Lama MD at 10/12/2023 0817 Diet: Adult diet Diet texture: Regular Primary diagnosis: Incisional hernia with obstruction Present on Admission: Incarcerated incisional hernia Currently scheduled inpatient medications: acetaminophen, 1,000 mg, Oral, q6h SUKHJINDER cyclobenzaprine, 5 mg, Oral, TID ferrous sulfate, 324 mg, Oral, Daily with breakfast gabapentin, 100 mg, Oral, TID lidocaine, 2 patch, Apply externally, q24h pantoprazole, 40 mg, Intravenous, Daily rOPINIRole, 1 mg, Oral, Nightly senna-docusate, 1 tablet, Oral, BID Prior to this admission Rosendo LEVI has a current medication list which includes the following long-term medication(s): ropinirole. Inpatient PRN medications: calcium carbonate, diphenhydrAMINE, ibuprofen, ondansetron ODT, oxyCODONE OR oxyCODONE, zolpidem Miky Lama MD PharmD Cosigned by Gennaro Lopez MD at 10/12/2023 1:35 PM EST Associated attestation - Gennaro Lopez MD - 10/12/2023 1:35 PM EST I saw and evaluated the patient with the resident/fellow. I discussed the case with the resident/fellow and agree with the findings and plan as documented. Doing fine overall, H&H stable and responded appropriately following most recent transfusion. Hemodynamically stable. She continues to report abdominal pain mostly in the flanks which is only partially controlled withher current medications. During evaluation however, she was resting comfortably and did not appear to be in obvious distress until examined. She has tolerating a diet, having bowel function. On exam abdomen is unchanged from yesterday without any acute concerns. Plan: - continue multimodal oral pain control. Can trial lidocaine patches. - plan discharge home once pain is better controlled, possibly later today versus tomorrow. * Progress Notes - Nasreen Apodaca - 10/11/2023 8:16 AM EST Images from the original note were not included. [facility] Department of Surgery Division of General, Endocrine, & Metabolic Surgery Surgery Progress Note 10/11/23 Rosendo LEVI Subjective Subjective: HPI Interval: Yesterday patient remained mildly tachycardic and hypotensive. Patient refused H&H labs yesterday but was willing to get pRBC transfusion yesterday afternoon. NAEO. Resting comfortably in bed at time of rounds. States she is in moderate pain but was able to sleep last night. Review of Systems: Relevant review of systems was obtained as able and is negative unless stated above in HPI. Objective Objective: Vital signs: Vitals: 10/11/23 0711 BP: 125/86 Pulse: 94 Resp: Temp: 37.2 ??C (98.9 ??F) SpO2: 100% Physical Exam: Physical Exam Constitutional: General: She is not in acute distress. Appearance: She is not ill-appearing. HENT: Head: Normocephalic and atraumatic. Mouth/Throat: Mouth: Mucous membranes are moist. Eyes: Extraocular Movements: Extraocular movements intact. Cardiovascular: Rate and Rhythm: Normal rate and regular rhythm. Pulmonary: Effort: Pulmonary effort is normal. Abdominal: General: There is distension. Palpations: Abdomen is soft. Tenderness: There is abdominal tenderness (Appropriately TTP). There is no guarding or rebound. Comments: Incision c/d/I. SID x2 in place, SS. Abdominal binder in place. Skin: General: Skin is warm and dry. Capillary Refill: Capillary refill takes 2 to 3 seconds. Neurological: Mental Status: She is alert and oriented to person, place, and time. Intake/Output Summary (Last 24 hours) at 10/11/2023 0834 Last data filed at 10/11/2023 0600 Gross per 24 hour Intake 1770 ml Output 55 ml Net 1715 ml Lines/Drains/Tubes: Patient Lines/Drains/Airways Status Active Airway None Output by Drain (mL) 10/09/23 07 - 10/09/23 1859 10/09/23 190 - 10/10/23 0659 10/10/23 07 - 10/10/23 1859 10/10/23 190 - 10/11/23 0659 10/11/23 07 - 10/11/23 0834 Closed/Suction Drain 1 LUQ Bulb 19 Fr. 45 10 15 Closed/Suction Drain 2 RUQ Bulb 19 Fr. 40 40 10 20 Labs in last 18 hours: CBC WBC ?? Hb ?? Plt ?? Hct ?? ANC ?? INR ??, PTT ??, Anti-Xa ?? MCV ?? BMP Na ?? Cl ?? BUN ?? Glu ?? K ?? Co2 ?? Cr ?? Ca ?? iCa ?? Mg ??, Phos ?? Lactate ?? LFT AST ?? AlkPhos ?? T Prot ?? ALK ?? Bili ?? Alb ?? D.Bili ?? Lab Trends: H/H Results from last 7 days Lab Units 10/10/23 0331 10/09/23 0333 10/08/23 0235 HEMOGLOBIN g/dL 6.7* 6.3* 7.7* HEMATOCRIT % 23.5* 23.0* 27.5* INR Cr Results from last 7 days Lab Units 10/10/23 0657 10/09/23 0333 10/08/23 0235 CREATININE mg/dL 0.66 0.92 0.75 Lactate No lab exists for component: LACTTEVEN Radiographic Interpretation: I have reviewed the imaging above and agree with the radiologist interpretation. Medications reviewed. Vital signs reviewed. Labs reviewed. Assessment/Plan Assessment and Plan: Rosendo Levi is a 48 y.o. female admitted for postoperative recover on 10/07/23 after undergoing a repair for her chronically incarcerated incisional hernia via mesh and abdominal wall reconstruction, including vertical panniculectomy. She is progressing as expected post-operatively. Shereceived an additional unit of pRBC yesterday 10/10 due to continued anemia with a hemoglobin of 6.7. Patient will receive additional H&H this morning 10/11. Medical Problems Problem List * (Principal) Incisional hernia with obstruction Ventral hernia Periumbilical abdominal pain Incarcerated incisional hernia Status post split thickness skin graft Superficial dehiscence of operation wound Overview Addendum 10/10/2021 4:53 PM by Jose Cruz Mello MD s/p ex-lap with washout of tubo-ovarian abscess at OSH 09/12 10/08 - [place] removed at bedside and old hematoma washed out/evacuated. No evidence of infection, Fascia probed and is intact. 10/10 - more superficial opening of wound, converted to negative pressure therapy dressing (white sponge at base of wound with black on top) Open abdominal wall wound Present on Admission: Incarcerated incisional hernia Plan: - Regular diet, D/C mIVF - Transition to oral pain meds - Abdominal binder at all times - 2 SID drains, continue drain care and please record output - Patient was agreeable to receiving a unit of pRBC yesterday 10/10 due to hemoglobin of 6.7. Recheck H&H this morning 10/11 -Home Ambien PRN restarted -Tentative discharge tomorrow 10/12 Dispo: Continue Current Level of Care Nasreen Apodaca MS3 Cosigned by Gennaro Lopez MD at 10/11/2023 12:30 PM EST Associated attestation - Gennaro Lopez MD - 10/11/2023 12:30 PM EST I saw and evaluated the patient. I discussed the case with the medical student and resident/fellow and agree with the findings and plan as documented. I personally participated in the management of the patient. Clinically doing well, mild intermittent tachycardia and hypotension yesterday following which she received another unit of packed red cells but refused labs yesterday or today due to her fear of needles. Otherwise vitals have been stable since last night without acute concerns. She was sitting up in bed this morning, has been tolerating her diet and has bowel function. She ambulates with the assistance. Overall pain has been fairly well controlled with medications. SID drain outputs have been low volume and serosanguineous. On exam abdomen is soft, no significant distention, mild appropriate azam- incisional tenderness, complains of little more tenderness on both flanks but there is no obvious swelling, firmness or bruising to suggest any significant hematoma. Midline incision with Dermabond Prineo secure. Bilateral SID drains with serosanguineous output. Plan: - continue inpatient monitoring given her hemodynamic changes and requirement for PRBC transfusion yesterday. I explained the importance of checking labs to make sure that her H&H remains stable prior to discharge. Patient is agreeable to having these tomorrow morning. - in the meanwhile continue multimodal oral pain control with p.r.n. nausea medications. - okay for diet as tolerated, encourage ambulation and incentive spirometry. - SCDs and VTE chemoprophylaxis while inpatient. - possible discharge home tomorrow. * Significant Event - Miky Lama MD - 10/10/2023 5:29 PM EST Interval update Patient with poor response to 1u pRBC transfused yesterday resulting in HGB rise from 6.3 to 6.7 onearly morning post transfusion labs. Patient had refused a second unit pRBC this a.m.; they have remained mildly hypotensive with mild tachycardia throughout day; unresponsive to IV fluids and oral intake. This afternoon she refused repeat lab monitoring for her HGB, elected instead to receive the 1u pRBC transfusion originally offered this morning. Results from last 7 days Lab Units 10/10/23 0331 10/09/23 0333 10/08/23 0235 HEMOGLOBIN g/dL 6.7* 6.3* 7.7* HEMATOCRIT % 23.5* 23.0* 27.5* * Progress Notes - Sherri Nelson - 10/10/2023 6:51 AM EST Images from the original note were not included. [facility] Department of Surgery Division of General, Endocrine, & Metabolic Surgery Surgery Progress Note 10/10/23 Rosendo LEVI Subjective Subjective: HPI Rosendo LEVI is a 48 y.o. female admitted for postoperative recover on 10/07/23 after undergoing a repair for her chronically incarcerated incisional hernia via mesh and abdominal wall reconstruction, including vertical panniculectomy. Edited by: Britta Lee MD at 10/08/2023 1051 Interval: NAEO, Resting comfortably in bed at time of rounds. Pain is controlled and states she wasable to sleep last night. Denies n/v. States she has been up to ambulate a couple times yesterday. Reports having passed flatus, but no BM yet. Review of Systems: Relevant review of systems was obtained as able and is negative unless stated above in HPI. Objective Objective: Vital signs: Vitals: 10/10/23 0327 BP: 109/70 Pulse: 98 Resp: 16 Temp: 36.7 ??C (98 ??F) SpO2: 93% Physical Exam: Physical Exam Constitutional: General: She is not in acute distress. Appearance: She is not ill-appearing. HENT: Head: Normocephalic and atraumatic. Mouth/Throat: Mouth: Mucous membranes are moist. Eyes: Extraocular Movements: Extraocular movements intact. Cardiovascular: Rate and Rhythm: Normal rate and regular rhythm. Pulmonary: Effort: Pulmonary effort is normal. Abdominal: General: There is distension. Palpations: Abdomen is soft. Tenderness: There is abdominal tenderness (Appropriately TTP). There is no guarding or rebound. Comments: Incision c/d/I. SID x2 in place, SS. Abdominal binder in place. Skin: General: Skin is warm and dry. Capillary Refill: Capillary refill takes 2 to 3 seconds. Neurological: Mental Status: She is alert and oriented to person, place, and time. Intake/Output Summary (Last 24 hours) at 10/10/2023 0651 Last data filed at 10/09/2023 1907 Gross per 24 hour Intake 480 ml Output 475 ml Net 5 ml Lines/Drains/Tubes: Patient Lines/Drains/Airways Status Active Airway None Output by Drain (mL) 10/08/23 0700 - 10/08/23 1859 10/08/23 1900 - 10/09/23 0659 10/09/23 0700 - 10/09/23 1859 10/09/23 190 - 10/10/23 0651 Closed/Suction Drain 1 LUQ Bulb 19 Fr. 80 20 15 Closed/Suction Drain 2 RUQ Bulb 19 Fr. 120 20 40 20 Labs in last 18 hours: CBC WBC ?? Hb 6.7 (L) Plt ?? Hct 23.5 (L) ANC ?? INR ??, PTT ??, Anti-Xa ?? MCV ?? BMP Na ?? Cl ?? BUN ?? Glu ?? K ?? Co2 ?? Cr ?? Ca ?? iCa ?? Mg ??, Phos ?? Lactate ?? LFT AST ?? AlkPhos ?? T Prot ?? ALK ?? Bili ?? Alb ?? D.Bili ?? Lab Trends: H/H Results from last 7 days Lab Units 10/10/23 0331 10/09/23 0333 10/08/23 0235 HEMOGLOBIN g/dL 6.7* 6.3* 7.7* HEMATOCRIT % 23.5* 23.0* 27.5* INR Cr Results from last 7 days Lab Units 10/09/23 0333 10/08/23 0235 CREATININE mg/dL 0.92 0.75 Lactate No lab exists for component: LACTTEVEN Radiographic Interpretation: I have reviewed the imaging above and agree with the radiologist interpretation. Medications reviewed. Vital signs reviewed. Labs reviewed. Assessment/Plan Assessment and Plan: Rosendo Levi is a 48 y.o. female admitted for postoperative recover on 10/07/23 after undergoing a repair for her chronically incarcerated incisional hernia via mesh and abdominal wall reconstruction, including vertical panniculectomy. She is progressing as expected post-operatively. Sheis anemic today, and we explained to her our recommendations for blood transfusion to benefit her post-operative recovery. She is reluctant to receive blood. We will continue to discuss this with her. Medical Problems Problem List * (Principal) Incisional hernia with obstruction Ventral hernia Periumbilical abdominal pain Incarcerated incisional hernia Status post split thickness skin graft Superficial dehiscence of operation wound Overview Addendum 10/10/2021 4:53 PM by Jose Cruz Mello MD s/p ex-lap with washout of tubo-ovarian abscess at OSH 09/12 10/08 - [place] removed at bedside and old hematoma washed out/evacuated. No evidence of infection, Fascia probed and is intact. 10/10 - more superficial opening of wound, converted to negative pressure therapy dressing (white sponge at base of wound with black on top) Open abdominal wall wound Present on Admission: Incarcerated incisional hernia Plan: - Regular diet, D/C mIVF - Transition to oral pain meds - Abdominal binder at all times - 2 SID drains, continue drain care and please record output - Patient was agreeable to receiving a unit of pRBCs, PO iron, and EPO yesterday morning (documented). Hemoglobin rechecked today was 6.7. Dispo: Continue Current Level of Care Sherri Nelson MS4 Cosigned by Isaac Boone MD at 10/10/2023 4:10 PM EST Associated attestation - Isaac Boone MD - 10/10/2023 4:10 PM EST I saw and evaluated the patient with the resident/fellow. I discussed the case with the resident/fellow and agree with the findings and plan as documented. * Consults - Bhumika Mayorga RN - 10/09/2023 10:27 PM EST Acute Pain Service Follow-Up Evaluation Rosendo LEVI is a 48 y.o. female Follow-Up: Follow-up reason: APS rounds Location: Left ribs Pain Rating (0-10): 8 Comfort/ Acceptable Pain Level: 5 Acute Pain Service Comments: Pain Service comments: Will continue Patient Controlled Analgesia infusion until primary service decides it is appropriate to discontinue. Patient received 65 doses in 24 hours with Patient Controlled Analgesia infusion for 13 mg. Patient denies need for bolus. Encouraged patient to push button more frequently for better pain control. Epidural Site: n/a Follow-Up: Follow-Up: Acute Pain Service will continue to follow and adjust as needed. Visit Type: Routine Current Analgesic Treatments: Inpatient Analgesics Active Medications Medication Name Dose Route Frequency acetaminophen (Tylenol) tablet 650 mg 650 mg Oral q6h PRN for mild pain, fever, as defined by service cyclobenzaprine (Flexeril) tablet 5 mg 5 mg Oral TID gabapentin (Neurontin) capsule 100 mg 100 mg Oral TID HYDROmorphone 1 mg/mL BEADING INSTALLER (naive protocol) no dose Intravenous Continuous HYDROmorphone bolus dose 0.2-0.8 mg 0.2-0.8 mg Intravenous q15 min PRN for severe pain ibuprofen tablet 600 mg 600 mg Oral q6h PRN for mild pain, fever naloxone (Narcan) 2 mg in sodium chloride 0.9 % 100 mL (0.02 mg/mL) infusion (Urinary Retention or Pruritus) 0.25-1 mcg/kg/hr Intravenous Titrated PRN for urinary retention, itching Rate: 0.97-3.88 mL/hr naloxone (Narcan) injection 0.08 mg 0.08 mg Intravenous PRN for respiratory depression, for respiratory rate < 8. IV BEADING INSTALLER: Dilaudid 1mg/ml @ 0.2mg Q 6 min; Incisional hernia with obstruction; TAP blocks; H/O ETOH abuse, anxiety Blood pressure 100/57, pulse 96, temperature 37.3 ??C (99.1 ??F), resp. rate 14, height 1.702 m (5'7 ), weight 77.6 kg (171 lb 1.2 oz), SpO2 98 %. Please Contact Acute Pain Service with any additional questions or concerns via [email or web address] Chat orpage [phone]. * Nursing Note - Rashida Sharpe - 10/09/2023 1:53 PM EST Obtained 1 unit of blood from Blood Bank but unit number not able to be scanned due to error with order from provider. Blood Bank recommended I use the unit of blood obtained and keep a record of events on downtime transfusion report form. Form added to patient chart. * Consults - Nellie Cunningham RN - 10/09/2023 1:45 PM ESTAssociated Order(s): IP CONSULT TO ADULT VASCULAR ACCESS TEAM VAT to bedside to place PIV. Patient states that she was stuck 12 times yesterday and does not want to be stuck again. VAT RN spoke with patient regarding medicine and blood incompatibility. Patient confirms that she does not want to be stuck at this time. MD Lechuga and JOSE Sharpe updated and both are aware that consult will be completed at this time. * Consults - Samuel Mattson RN - 10/09/2023 12:51 PM EST Acute Pain Service Follow-Up Evaluation Rosendo LEVI is a 48 y.o. female Follow-Up: Follow-up reason: APS rounds Location: abdomen Pain Rating (0-10): 7 Comfort/ Acceptable Pain Level: 4 Acute Pain Service Comments: Pain Service comments: Will continue Patient Controlled Analgesia infusion until primary service decides it is appropriate to discontinue. Patient received 54 doses in 24 hours with Patient Controlled Analgesia infusion for 10.8mg Hydromorphone solution . Follow-Up: Follow-Up: Acute Pain Service will continue to follow and adjust as needed. Visit Type: Routine Current Analgesic Treatments: Inpatient Analgesics Active Medications Medication Name Dose Route Frequency acetaminophen (Tylenol) tablet 650 mg 650 mg Oral q6h PRN for mild pain, fever, as defined by service cyclobenzaprine (Flexeril) tablet 5 mg 5 mg Oral TID gabapentin (Neurontin) capsule 100 mg 100 mg Oral TID HYDROmorphone 1 mg/mL BEADING INSTALLER (naive protocol) no dose Intravenous Continuous HYDROmorphone bolus dose 0.2-0.8 mg 0.2-0.8 mg Intravenous q15 min PRN for severe pain ibuprofen tablet 600 mg 600 mg Oral q6h PRN for mild pain, fever naloxone (Narcan) 2 mg in sodium chloride 0.9 % 100 mL (0.02 mg/mL) infusion (Urinary Retention or Pruritus) 0.25-1 mcg/kg/hr Intravenous Titrated PRN for urinary retention, itching Rate: 0.97-3.88 mL/hr naloxone (Narcan) injection 0.08 mg 0.08 mg Intravenous PRN for respiratory depression, for respiratory rate < 8. IV BEADING INSTALLER: Dilaudid 1mg/ml @ 0.2mg Q 6 min; Incisional hernia with obstruction; TAP blocks; H/O ETOH abuse, anxiety Blood pressure 104/58, pulse 99, temperature 36.9 ??C (98.4 ??F), resp. rate 14, height 1.702 m (5'7 ), weight 77.6 kg (171 lb 1.2 oz), SpO2 100 %. Please Contact Acute Pain Service with any additional questions or concerns via [employer] Secure Chat orpage [phone]. * Significant Event - Jennifer Lebron - 10/09/2023 9:56 AM EST Images from the original note were not included. Rosendo Levi is a 48 y.o. female admitted for postoperative recover on 10/07/23 after undergoing a repair for her chronically incarcerated incisional hernia via mesh and abdominal wall reconstruction, including vertical panniculectomy. At 9:45AM this morning Drs. Boone and Keshawn spoke to the patient again about receiving a blood transfusion. After discussion of the benefits and risks, she agreed to receive one unit of pRBCs, PO iron supplementation, and EPO. The decision was made to not recheck her hemoglobin today after the transfusion but her levels will be rechecked in the morning with routine labs. The patient was agreeble to this plan. Georgie Lebron MS4 Cosigned by Isaac Boone MD at 10/09/2023 12:50 PM EST Associated attestation - Isaac Boone MD - 10/09/2023 12:50 PM EST I saw and evaluated the patient with the resident/fellow. I discussed the case with the resident/fellow and agree with the findings and plan as documented. Isaac Boone MD * Care Plan - Dell Rashida - 10/09/2023 9:16 AM EST Problem: Adult Inpatient Plan of Care Goal: Plan of Care Review Outcome: Ongoing, Progressing Goal: Patient-Specific Goal (Individualized) Outcome: Ongoing, Progressing Goal: Absence of Hospital-Acquired Illness or Injury Outcome: Ongoing, Progressing Goal: Optimal Comfort and Wellbeing Outcome: Ongoing, Progressing Goal: Readiness for Transition of Care Outcome: Ongoing, Progressing * Progress Notes - Dawna Lechuga MD - 10/09/2023 7:37 AM EST Images from the original note were not included. [facility] Department of Surgery Division of General, Endocrine, & Metabolic Surgery Surgery Progress Note 10/09/23 Rosendo LEVI Subjective Subjective: [facility] Rosendo LEVI is a 48 y.o. female admitted for postoperative recover on 10/07/23 after undergoing a repair for her chronically incarcerated incisional hernia via mesh and abdominal wall reconstruction, including vertical panniculectomy. Edited by: Britta Lee MD at 10/08/2023 1051 Interval: NAEO, Resting comfortably in bed at time of rounds. Pain is controlled and states she wasable to sleep last night. Denies n/v. States she has been up to ambulate a couple times yesterday. No flatus or BM yet. Review of Systems: Relevant review of systems was obtained as able and is negative unless stated above in HPI. Objective Objective: Vital signs: Vitals: 10/09/23 0735 BP: 129/77 Pulse: (!) 113 Resp: Temp: 36.7 ??C (98.1 ??F) SpO2: 94% Physical Exam: Physical Exam Constitutional: General: She is not in acute distress. Appearance: She is not ill-appearing. HENT: Head: Normocephalic and atraumatic. Mouth/Throat: Mouth: Mucous membranes are moist. Eyes: Extraocular Movements: Extraocular movements intact. Cardiovascular: Rate and Rhythm: Normal rate and regular rhythm. Pulmonary: Effort: Pulmonary effort is normal. Abdominal: General: There is distension. Palpations: Abdomen is soft. Tenderness: There is abdominal tenderness (Appropriately TTP). There is no guarding or rebound. Comments: Incision c/d/I. SID x2 in place, SS. Abdominal binder in place. Skin: General: Skin is warm and dry. Capillary Refill: Capillary refill takes 2 to 3 seconds. Neurological: Mental Status: She is alert and oriented to person, place, and time. Intake/Output Summary (Last 24 hours) at 10/09/2023 0739 Last data filed at 10/09/2023 0500 Gross per 24 hour Intake 240 ml Output 240 ml Net 0 ml Lines/Drains/Tubes: Patient Lines/Drains/Airways Status Active Airway None Output by Drain (mL) 10/07/23 07 - 10/07/23 18510/07/23 190 - 10/08/23 0659 10/08/23 07 - 10/08/23 1859 10/08/23 190 - 10/09/23 0659 10/09/23 07 - 10/09/23 0739 Closed/Suction Drain 1 LUQ Bulb 19 Fr. 10 20 80 20 Closed/Suction Drain 2 RUQ Bulb 19 Fr. 90 50 120 20 Labs in last 18 hours: CBC WBC 10.34 (H) Hb 6.3 (LL) Plt 232 Hct 23.0 (L) ANC ?? INR ??, PTT ??, Anti-Xa ?? MCV 77 (L) BMP Na 131 (L) Cl 100 BUN 16 Glu 115 (H) K 4.1 Co2 23 Cr 0.92 Ca 8.7 (L) iCa ?? Mg 2.3, Phos 2.8 Lactate ?? LFT AST ?? AlkPhos ?? T Prot ?? ALK ?? Bili ?? Alb ?? D.Bili ?? Lab Trends: H/H Results from last 7 days Lab Units 10/09/23 0333 10/08/23 0235 HEMOGLOBIN g/dL 6.3* 7.7* HEMATOCRIT % 23.0* 27.5* INR Cr Results from last 7 days Lab Units 10/09/23 0333 10/08/23 0235 CREATININE mg/dL 0.92 0.75 Lactate No lab exists for component: LACTTEVEN Radiographic Interpretation: I have reviewed the imaging above and agree with the radiologist interpretation. Medications reviewed. Vital signs reviewed. Labs reviewed. Assessment/Plan Assessment and Plan: Rosendo Levi is a 48 y.o. female admitted for postoperative recover on 10/07/23 after undergoing a repair for her chronically incarcerated incisional hernia via mesh and abdominal wall reconstruction, including vertical panniculectomy. She is progressing as expected post-operatively. Sheis anemic today, and we explained to her our recommendations for blood transfusion to benefit her post-operative recovery. She is reluctant to receive blood. We will continue to discuss this with her. Medical Problems Problem List * (Principal) Incisional hernia with obstruction Ventral hernia Periumbilical abdominal pain Incarcerated incisional hernia Status post split thickness skin graft Superficial dehiscence of operation wound Overview Addendum 10/10/2021 4:53 PM by Jose Cruz Mello MD s/p ex-lap with washout of tubo-ovarian abscess at OSH 09/12 10/08 - [place] removed at bedside and old hematoma washed out/evacuated. No evidence of infection, Fascia probed and is intact. 10/10 - more superficial opening of wound, converted to negative pressure therapy dressing (white sponge at base of wound with black on top) Open abdominal wall wound Present on Admission: Incarcerated incisional hernia Plan: - FLD; mIVF till adequate oral intake - abdominal binder at all times - IV BEADING INSTALLER - 2 SID drains, continue drain care and please record output - FC removed this AM - Discuss blood transfusion Dispo: Continue Current Level of Care Dawna Lechuga MD Cosigned by Isaac Boone MD at 10/09/2023 12:49 PM EST Associated attestation - Isaac Boone MD - 10/09/2023 12:49 PM EST I saw and evaluated the patient with the resident/fellow. I discussed the case with the resident/fellow and agree with the findings and plan as documented. Discussed importance of DVT prophyaxis. Patient has refused medication and is not fully mobile Recommend repeat check of H/H and transfuse of 1 U PRBC due to chronic anemia (POA) and tachycardia. Patient ultimately agreed to receiving a unit of blood after lengthy conversation. * Significant Event - Dawna Lechuga MD - 10/09/2023 6:05 AM EST Rosendo Levi is a 48 y.o. female admitted for postoperative recover on 10/07/23 after undergoing a repair for her chronically incarcerated incisional hernia via mesh and abdominal wall reconstruction, including vertical panniculectomy. Her hemoglobin resulted as 6.3 this morning. Per nursing, patient refused repeat H&H and told nursing she is a Jehovah Witness and refuses blood products. At 0600 this morning on rounds, informedpatient again of her anemia and our recommendations to receive blood products. When asked if she sarita Jehovah Witness, she responded no and that she was just kidding when she told medical staff shewas one earlier. When asked if she would agree to receive blood products, she said she would take some time this morning to consider it. At 0800 this morning, I discussed with patient again about if she would agree to receive blood transfusion. She said no and when asked what her reasoning for her reluctance was she said AIDS . I explained to her that the risk of zaki blood borne diseases including HIV from blood transfusions is extremely low due to rigorous screening of blood products. I also explained to her the benefitsof receiving blood products for symptomatic anemia especially in the post-operative setting. She still refused blood transfusion. When asked if she would be agreeable to receiving blood transfusion in an emergent situation should her condition worsen, including worsening of symptomatic anemia and un stable vitals signs, she said she would be agreeable to blood transfusion in that instance. We will continue to monitor. I provided her with precautions and to monitor for symptoms of anemia including weakness, shortness of breath, dizziness, lightheadedness, syncope. I advised her to inform medical staff of worsening symptoms or if she changes her mind about receiving blood products. Patient was agreeable to this plan. Dawna Lechuga MD Cosigned by Isaac Boone MD at 10/09/2023 12:49 PM EST Associated attestation - Isaac Boone MD - 10/09/2023 12:49 PM EST I saw and evaluated the patient with the resident/fellow. I discussed the case with the resident/fellow and agree with the findings and plan as documented. Isaac Boone MD * Nursing Note - Mallory Connell - 10/09/2023 4:52 AM EST Patient hemoglobin is 6.3 reported to MD, repeat H&H ordered, patient refused to have repeat labs performed and patient states that she is Jehovah Witness and refuses any blood products. Notifiedprovider educational resource coordinator no new orders noted. Will continue to monitor patient. * Significant Event - Candy Cruz RN - 10/09/2023 1:56 AM EST 10/09/23 0150 Event/Notification Description Event Location [facility] and Room Number 602 Reason for Rapid Response Team notification IV Is the patient a DNR? No Type of Event IV/Labs Method of Notification Nurse (specify) (Mallory Connell) Onset and Notification Specifics Time SERVICE CENTER ASSISTANT RN Notified 0107 Time SERVICE CENTER ASSISTANT RN Arrived 0120 Rapid Response Outcome Survival Yes Rapid Response Termination Due to Patient remained on floor 0107 SERVICE CENTER ASSISTANT notified by primary nurse Mallory Connell requesting assistance with IV placement. 0120 SERVICE CENTER ASSISTANT to bedside to assist. 0150 PIV placed by Candy Cruz RN, SERVICE CENTER ASSISTANT--20 gauge right forearm/wrist. Positive blood return. Access flushes without difficulty with 10ml NS flush. PIV placed on first attempt. Patient tolerated well. IV secured with Tegaderm and tape. Primary RN denies needing any further assistance from SERVICE CENTER ASSISTANT. Instructed to notify SERVICE CENTER ASSISTANT and/or service for any acute changes or concerns. Candy Cruz RN, BSN, SERVICE CENTER ASSISTANT Rapid Response Team * Consults - Bhumika Mayorga RN - 10/09/2023 1:46 AM EST Acute Pain Service Follow-Up Evaluation Rosendo LEVI is a 48 y.o. female Follow-Up: Follow-up reason: APS rounds Location: abdomen Pain Rating (0-10): 7/8 Comfort/ Acceptable Pain Level: Acute Pain Service Comments: Pain Service comments: Will continue Patient Controlled Analgesia infusion until primary service decides it is appropriate to discontinue. Patient received 64 doses in 24 hours with Patient Controlled Analgesia infusion for 12.8 mg. Patient disconnected due to loss of IV access. RN in room replacing IV. Epidural Site: n/a Follow-Up: Follow-Up: Acute Pain Service will continue to follow and adjust as needed. Visit Type: Routine Current Analgesic Treatments: Inpatient Analgesics Active Medications Medication Name Dose Route Frequency acetaminophen (Tylenol) tablet 650 mg 650 mg Oral q6h PRN for mild pain, fever, as defined by service cyclobenzaprine (Flexeril) tablet 5 mg 5 mg Oral TID gabapentin (Neurontin) capsule 100 mg 100 mg Oral TID HYDROmorphone 1 mg/mL BEADING INSTALLER (naive protocol) no dose Intravenous Continuous HYDROmorphone bolus dose 0.2-0.8 mg 0.2-0.8 mg Intravenous q15 min PRN for severe pain ibuprofen tablet 600 mg 600 mg Oral q6h PRN for mild pain, fever ketorolac (Toradol) injection 15 mg 15 mg Intravenous q6h SUKHJINDER naloxone (Narcan) 2 mg in sodium chloride 0.9 % 100 mL (0.02 mg/mL) infusion (Urinary Retention or Pruritus) 0.25-1 mcg/kg/hr Intravenous Titrated PRN for urinary retention, itching Rate: 0.97-3.88 mL/hr naloxone (Narcan) injection 0.08 mg 0.08 mg Intravenous PRN for respiratory depression, for respiratory rate < 8. IV BEADING INSTALLER: Dilaudid 1mg/ml @ 0.2mg Q 6 min; Incisional hernia with obstruction; TAP blocks; H/O ETOH abuse, anxiety Blood pressure 119/66, pulse 104, temperature 36.6 ??C (97.9 ??F), resp. rate 16, height 1.702 m (5' 7 ), weight 77.6 kg (171 lb 1.2 oz), SpO2 100 %. Please Contact Acute Pain Service with any additional questions or concerns via [employer] orpage [phone]. * Care Plan - Mallory Connell - 10/09/2023 12:44 AM EST Patient pain will be controlled during the shift * Progress Notes - Rich Bansal, PharmD - 10/08/2023 1:35 PM EST REMS Monitoring - Alvimopan (Entereg) Patient has been started on alvimopan (Entereg) for the following approved indication per [place] formulary: []GI recovery following partial large or small bowel resection surgery with primary anastamosis []Urinary reconstruction with the use of bowel [x]Complex ventral hernia repair []Other: The following criteria/information was reviewed to ensure the order is appropriate: [x]Patient did NOT take therapeutic opioids > 7 days prior to surgery (contraindication) []Patient received alvimopan 12mg x 1 dose between 30 min and 5 hours prior to procedure [x] Post-op dose has been entered to start as 12mg po BID, not to exceed 15 total doses Daily Lo/16: OR VHR 10/08: Full liquid diet No BM documented Pharmacy will continue to follow and recommend discontinuation of the alvimopan once clinically appropriate (first BM or toleration of solids). Rich Bansal, Marie * Progress Notes - Dsetiney Patel RN - 10/08/2023 1:29 PM EST Case Management Adult Initial Progress Note Rosendo LEVI 48 y.o. female CSN: [id number] Admission: 10/07/2023 7:08 AM Primary Problem: Incisional hernia with obstruction Miniature Set Constructor reviewed chart and spoke with patient to complete this Initial Case Management Assessment. PCP: Shantanu Landeros MD (Dr Landeros is no longer in practice so pt is now seeing his replacement Dr Tello in the same office). Emergency Contact: Extended Emergency Contact Information Primary Emergency Contact: Tati Senior Mobile Relation: Daughter Secondary Emergency Contact: Herminia Monsalve Mobile Relation: Mother Insurance: Primary Visit Coverage Payer Plan Sponsor Code Group Number Group Name [employer] MEDICAID [employer] [place] Primary Visit Coverage Subscriber Subscriber ID Subscriber Name Subscriber N Subscriber Address [id number] ROSENDO LEVI [id number] [place] [address] Patient information: Primary Caregiver: Self Support System: Immediate family, Extended family (Pt reports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 neurovascular bundles to the rectus abdominis muscle were identified dissected and preserved. Dissection was carried into the space of Retzius inferiorlyand up to the costal margin superiorly. Next on the left side of the abdominal wall I incised the anterior rectus sheath at its medial border. I dissected the posterior rectus sheath from the rectus abdominis muscle. I dissected the epigastric vessels with the rectus abdominis muscle. Dissection was carried out to the lateral border the rectus muscle. The neurovascular bundles were identified and preserved. The inferior epigastric vessel was carefully isolated and left in continuity with the rectus muscle to maintain a vascularized innervated rectus abdominis flap. Having completed dissection of both sides of the abdominal wall thefascia was still not amenable to closure. For this reason I felt transversus abdominis releases were required for further abdominal wall advancement. I began on the right side of the abdominal wall by incising the transversus abdominis muscle 1 cm medial to the neurovascular bundles at the lateral aspect of the posterior rectus sheath. I began thecostal margin and extended inferior laterally to the lateral aspect of the rectus sheath. I then extended a cm medial to the neurovascular bundles along the lateral aspect of the rectus sheath towardthe arcuate line. After dividing both the posterior leaflet of the internal oblique and the transversus abdominis muscle fibers I then the transversus abdominis muscle from the transversalis fascia and peritoneum inferiorly allowing for advancement of the rectus abdominis muscle medially with this attachment to the internal and external oblique which medially advanced. Having completed the right-sided dissection there still was undue tension on the wound and a contralateral left-sided transversus abdominis release was required. In a similar fashion I incised the posterior rectus sheath a cm medial to the neurovascular bundles at the lateral aspect. This involved dividing both the posterior lamella of the internal oblique as well as the transversus abdominis muscle fibers. This incision extended below the costal margin and inferiorly down to the arcuate line. I then the transversus abdominis muscle fibers from the transversalis fascia and peritoneum. I then widely the transversus from the abdominal wall out the anterior axillary line. The space was dissected into the space of Retzius and up to the costal margin. The central portion ofthe abdominal wall was fully cleared down to the symphysis pubis and below. Superiorly the posterior rectus sheath insertion onto the linea Alba was divided and I the posterior sheaths fromthe anterior abdominal wall up to the xiphoid process. I then further dissected superiorly behind the costal margin and up to the xiphoid process and several cm cephalad. Having completed maximal dissection of the abdominal wall at this point I felt the rectus abdominis muscles were amenable to advancement bilaterally to facilitate the best midline closure feasible. Next I entered the peritoneal cavity adjacent to the skin graft. I lysed adhesions to the skin graft which included bowel, omentum and colon. This was done without event. Omentum was partially excised and vessels tied witih silk. The skin graft was excised with cautery and was about 25 x 20 cm in maximal dimension. Bowel was inspected and without injury. Posterior sheath was then closed with vicryl. I then changed gloves and irrigated further. Next 30 x 30cm Phasix mesh was placed into the preperitoneal space in a juli configuration to provide maximal coverage. The mesh was not trimmed. This was anchored using 1. PDS sutures in an interrupted fashion. Sutures were placed on the mesh to anchor it laterally as well as superior midline and inferior midline. A 19 Syrian Marky drain was placedinto the retrorectus space. This was exiting the right upper quadrant and secured with a Prolene suture. Next I closed the fascia using Stratafix symmetric 1 PDS sutures 3 strands were required but fasciaclosed fully. This facilitated distributing tension across the midline incision. Once the sutures were placed I then tied the sutures sequentially while maintaining tension on each of the stitches. Airway pressures did not significantly changed during closure. At this point we irrigated the subcutaneous tissues and assured hemostasis. There was tremendous redundancy of the skin and soft tissue of the anterior abdominal wall following closure of the midline and advancement of the muscle flaps. For this reason excision of redundant skin and soft tissue of the anterior abdominal wall was required. I marked the excision of soft tissues of the anterior abdominal wall. I then excised a large ellipse of skin from the anterior abdominal wall to essentially perform a vertical panniculectomy. The paddle of skin was approximately 20 x 12 cm in width. Sharp dissection was performed with division of the subcutaneous tissues with cautery. Hemostasis was obtained with sutures and with cautery. Following excision of the redundant abdominal wall I then proceeded with closure. Irrigation was performed. A 19 Syrian Marky drain was placedinto the subcutaneous tissues anchoring with a nylon suture in the left upper quadrant. I placed 2-0 Vicryl progressive tension sutures to obliterate potential space and advanced the soft tissues andreduce seroma. I then placed 2-0 Vicryl sutures in Melissa's fascia. I then closed deep dermis with 3-0 Vicryl sutures. The skin was closed using a running subcuticular suture. Dermabond Prineo was applied. Patient tolerated the procedure well and there were no complications. I was present for the entire procedure. Complications: None; patient tolerated the procedure well. Submitted by: Isaac Boone MD - 10/07/2023 * H&P - Isaac Boone MD - 10/07/2023 9:38 AM EST Images from the original note were not included. Chief Concern & History Of Present Illness Rosendo LEVI is a 48 y.o. female presenting with ventral hernia and prior skin graft toabdomen. Past Medical History She has a past medical history of Alcohol abuse, Alcohol withdrawal delirium ([facility]), Anxiety (03/19/2018), COVID-19 (09/23/2021), Dental disease, Depression, Essential hypertension (03/19/2018), Insomnia, and Spinal headache. Surgical History She has a past surgical history that includes section, low transverse; Exploratory laparotomy (09/12/2021); and Skin split graft. Family History Family History Problem Relation Name Age of Onset Cervical cancer Mother Hypertension Father Social History She reports that she has quit smoking. Her smoking use included cigarettes. She has a 32.00 pack-year smoking history. She has been exposed to tobacco smoke. She has never used smokeless tobacco. Shereports that she does not currently use alcohol after a past usage of about 21.0 - 30.0 standard drinks of alcohol per week. She reports that she does not currently use drugs. 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 Travel History Relevant International Travel History: Travel Screening Question Response Have you been in contact with someone who was sick? No / Unsure Do you have any of the following new or worsening symptoms? None of these Have you traveled internationally or domestically in the last month? No Travel History Travel since 09/06/23 No documented travel since 09/06/23 Relevant Domestic Travel History: Immunizations not reviewed VACCINE/DOSE Flu Tetanus Pneumovax Shingles Allergies Sulfadiazine Medications Current Facility-Administered Medications Medication Dose Route Frequency Provider Last Rate Last Admin ceFAZolin (Ancef) injection 2 g 2 g Intravenous Once Isaac Boone MD heparin (porcine) injection 5,000 Units 5,000 Units Subcutaneous q8h SUKHJINDER Isaac Boone MD 5,000 Units at 10/07/23 0926 lactated Ringer's infusion 100 mL/hr Intravenous Continuous Adalberto Mckeon MD 100 mL/hr at 10/07/23 0834 100 mL/hr at 10/07/23 0834 lidocaine (Xylocaine) 1 % injection 0.5 mL 0.5 mL Injection Once PRN Adalberto Mckeon MD ropivacaine (Naropin) 5 MG/ML injection - Pyxis Override Pull scopolamine (Transderm-Scop) patch 1 patch 1 patch Transdermal Once Adalberto Mckeon MD 1 patchat 10/07/23 0835 sodium chloride 0.9 % flush 10 mL 10 mL Intravenous q12h Adalberto Mckeon MD And sodium chloride 0.9 % flush 10 mL 10 mL Intravenous PRN Adalberto Mckeon MD sodium chloride 0.9 % flush 10 mL 10 mL Intravenous q12h Isaac Boone MD And sodium chloride 0.9 % flush 10 mL 10 mL Intravenous PRN Isaac Boone MD Review of Systems Anxious but otherwise no new changes Physical Exam Anxious RRR Clear lungs Abd - large vh with overlying skin graft well healed and pinchable from viscera Extr - no edema Neuro - alert, no focal defects Last Recorded Vitals Blood pressure 120/76, pulse 81, temperature 36.4 ??C (97.6 ??F), temperature source Skin, resp. rate 16, height 1.702 m (5' 7 ), weight 77.6 kg (171 lb 1.2 oz), SpO2 100 %. Relevant Results Ct scan abd reviewed Assessment/Plan Principal Problem: Incisional hernia with obstruction Active Problems: Incarcerated incisional hernia Large VH with loss of domain, prior STSG. Plan open VHR with resection of skin graft, lysis of adhesions, component separation, removal of redundant soft tissue/panniculectomy as necessitated by hernia sac and dysvascular skin * PAT Phone Note - Rita Roberts RN - 09/08/2023 12:08 PM EST HPI Rosendo LEVI is a 48 y.o. female who presents with Pre-op Diagnosis * Incisional hernia with obstruction [K43.0] now scheduled for COMPLEX REPAIR, HERNIA, VENTRAL (N/A). Past Medical History: Diagnosis Date Alcohol abuse Alcohol withdrawal delirium (CMS/HCC) Anxiety 03/19/2018 COVID-19 09/23/2021 Dental disease top dentures/broken and missing bottom teeth Depression Essential hypertension 03/19/2018 Insomnia Spinal headache Family History Problem Relation Name Age of Onset Cervical cancer Mother Hypertension Father Social History Tobacco Use Smoking status: Former Packs/day: 1.00 Years: 32.00 Additional pack years: 0.00 Total pack years: 32.00 Types: Cigarettes Passive exposure: Past Smokeless tobacco: Never Vaping Use Vaping Use: Never used Substance Use Topics Alcohol use: Not Currently Alcohol/week: 21.0 - 30.0 standard drinks of alcohol Types: 21 - 30 Shots of liquor per week Comment: 3 airplane bottles/day on weekdays; 6 airplane bottles/day on weekends Drug use: Not Currently Comment: denies current use SURGICAL HISTORY: Past Surgical History: Procedure Laterality Date SECTION, LOW TRANSVERSE EXPLORATORY LAPAROTOMY 09/12/2021 evacuation of tubo-ovarian abscess SKIN SPLIT GRAFT from right thigh to abdominal wound Allergies Allergen Reactions Sulfadiazine Itching MEDICATIONS: No current facility-administered medications for this encounter. Current Outpatient Medications: bacitracin, APPLY TO VASELINE GAUZE AND WOUNDS TWICE DAILY HYDROcodone-acetaminophen, Take 1 tablet (5 mg of hydrocodone) by mouth every 6 (six) hours if needed. hydrOXYzine pamoate, Take 1 capsule (50 mg) by mouth 3 (three) times a day if needed. rOPINIRole, Take 1 tablet (1 mg) by mouth every night. zolpidem, Take 1 tablet (10 mg) by mouth at night if needed for sleep. busPIRone, docusate sodium, Take 1 capsule (100 mg) by mouth 1 (one) time each day if needed for constipation.(Patient not taking: Reported on 09/08/2023) folic acid, TAKE 1 TABLET BY MOUTH DAILY FOR SUPPLEMENT (Patient not taking: Reported on 09/08/2023) lisinopril, Take 1 tablet (10 mg total) by mouth 1 (one) time each day. (Patient not taking: Reported on 08/20/2023) lisinopril-hydroCHLOROthiazide, Take 1 tablet by mouth 1 (one) time each day. (Patient not taking: Reported on 09/08/2023) loratadine, Take 1 tablet (10 mg) by mouth 1 (one) time each day. (Patient not taking: Reported on 09/08/2023) naltrexone, Take 1 tablet (50 mg) by mouth every night. (Patient not taking: Reported on 09/08/2023) PARoxetine, Take 1 tablet (40 mg) by mouth 1 (one) time each day in the morning. (Patient not taking: Reported on 09/08/2023) QUEtiapine, Take 1 tablet (100 mg) by mouth every night. (Patient not taking: Reported on 09/08/2023) Rita rubio RN * Preprocedure Instructions - Rita Roberts RN - 09/08/2023 12:06 PM EST Current Medications Medication Instructions bacitracin 500 UNIT/GM ointment Hold day of surgery HYDROcodone-acetaminophen ([place]) 5-325 MG tablet Take as needed hydrOXYzine pamoate (Vistaril) 50 MG capsule Take as needed rOPINIRole (Requip) 1 MG tablet Take night before surgery zolpidem (Ambien) 10 MG tablet Take night before surgery General Preoperative Instructions You will be called the business day before surgery with your arrival time Do not eat or drink anything after midnight except water with your medications unless other instructions are given No alcohol or smoking prior to surgery Arrive on time to avoid delays Parking/Registration procedure explained You MUST have a responsible adult available for transport to and from hospital Visitation policy for the day of surgery reviewed Bring insurance card, photo ID, along with power of catheter finisher and inspector, guardianship or advanced directives if applicable Do not bring money, jewelry or other valuables Hibiclens bathing instructions reviewed if applicable Notify surgeon of fever, illness, any changes or if you decide not to have surgery Pediatric patients under 12 years of age (If applicable) No solid food or milk after midnight Formula 6 hours prior to arrival for surgery Breast milk 4 hours prior to arrival surgery Clear liquids 2 hours prior to arrival for surgery Diabetes Instructions (If applicable) Take diabetes medication as instructed You may have up to 4 ounces of apple juice 2 hours prior to arrival for surgery for low glucose documented in this encounter Plan of Treatment Not on file documented as of this encounter Procedures Procedure Name Priority Date/Time Associated Diagnosis Comments OXYGEN THERAPY Routine 10/12/2023 8:00 AM EST CBC W/O DIFFERENTIAL Pending Discharge 10/12/2023 4:15 AM EST PHOSPHORUS, PLASMA Pending Discharge 10/12/2023 4:15 AM EST MAGNESIUM, PLASMA Pending Discharge 10/12/2023 4:15 AM EST COMPREHENSIVE METABOLIC PANEL, PLASMA Pending Discharge 10/12/2023 4:15 AM EST OXYGEN THERAPY Routine 10/11/2023 8:00 PM EST OXYGEN THERAPY Routine 10/11/2023 8:00 AM EST OXYGEN THERAPY Routine 10/10/2023 8:00 PM EST TRANSFUSE RED BLOOD CELLS Routine 10/10/2023 6:42 PM EST PREPARE RBC Routine 10/10/2023 5:28 PM EST OXYGEN THERAPY Routine 10/10/2023 8:00 AM EST EXTRA TUBE LIGHT GREEN TOP Routine 10/10/2023 6:57 AM EST EXTRA TUBES Routine 10/10/2023 6:57 AM EST COMPREHENSIVE METABOLIC PANEL, PLASMA Add-On 10/10/2023 6:57 AM EST HEMOGLOBIN AND HEMATOCRIT, BLOOD Routine 10/10/2023 3:31 AM EST OXYGEN THERAPY Routine 10/09/2023 8:00 PM EST TYPE AND SCREEN Routine 10/09/2023 10:17 AM EST OXYGEN THERAPY Routine 10/09/2023 8:00 AM EST CBC W/O DIFFERENTIAL Routine 10/09/2023 3:33 AM EST PHOSPHORUS, PLASMA Routine 10/09/2023 3: 33 AM EST MAGNESIUM, PLASMA Routine 10/09/2023 3:3 3 AM EST BASIC METABOLIC PANEL, PLASMA Routine 10/09/2023 3:33 AM EST OXYGEN THERAPY Routine 10/08/2023 8:00 PM EST ECG ADULT Routine 10/08/2023 11:07 AM EST XR CHEST 1 VIEW Routine 10/08/2023 9:51 AM EST XR ABDOMEN 1 VIEW Routine 10/08/2023 9:5 1 AM EST OXYGEN THERAPY Routine 10/08/2023 8:00 AM EST CBC W/O DIFFERENTIAL Routine 10/08/2023 2:35 AM EST PHOSPHORUS, PLASMA Routine 10/08/2023 2: 35 AM EST MAGNESIUM, PLASMA Routine 10/08/2023 2:3 5 AM EST BASIC METABOLIC PANEL, PLASMA Routine 10/08/2023 2:35 AM EST OXYGEN THERAPY Routine 10/07/2023 8:00 PM EST OXYGEN THERAPY Routine 10/07/2023 2:23 PM EST OXYGEN THERAPY Routine 10/07/2023 2:23 PM EST OXYGEN THERAPY Routine 10/07/2023 2:23 PM EST SURGICAL PATHOLOGY EXAM Routine 10/07/2023 12:36 PM EST Incisional hernia with obstruction WI RPR AA HERNIA 1ST > 10 CM NCRC8/STRANGULATED 10/07/2023 10:05 AM EST Incisional hernia with obstruction Status post split thickness skin graft Special Needs Phasix mesh 30cm x 30cm POCT , URINE Routine 10/07/2023 9:16 AM EST documented in this encounter Results * Phosphorus, Plasma (10/12/2023 4:15 AM EST) Phosphorus, Plasma 2.7 2.5 - 4.5 mg/dL 10/12/2023 5:08 AM EST [facility] Blood Venous blood specimen / Unknown Venipuncture / Unknown 10/12/2023 4:15 AM EST 10/12/2023 4:46 AM EST us Isaac Boone MD LAB BLOOD ORDERABLES Final Resul t Performing Organization Address City/[facility]/ZIP Co de Phone Number [facility] [address] [place] [address] * (ABNORMAL) Magnesium, Plasma (10/12/2023 4:15 AM EST) Magnesium, Plasma 1.7(L) 1.9 - 2.4 mg/dL 10/12/2023 5:08 AM EST [facility] Blood Venous blood specimen / Unknown Venipuncture / Unknown 10/12/2023 4:15 AM EST 10/12/2023 4:46 AM EST us Isaac Boone MD LAB BLOOD ORDERABLES Final Resul t Performing Organization Address City/[facility]/ZIP Co de Phone Number [facility] [address] [place] [address] * (ABNORMAL) Comprehensive metabolic panel (10/12/2023 4:15 AM EST) [facility] Glucose, Plasma 89 74 - 99 mg/dL 10/12/2023 5:08 AM [facility] BUN, Plasma 8 7 - 21 mg/dL 10/12/2023 5:08 AM [facility] Creatinine, Plasma 0.67 0.60 - 1.10 mg/dL 10/12/2023 5:08 AM [facility] BUN/Creatinine Ratio 12 10/12/2023 5:08 AM [facility] Sodium, Plasma 135(L) 136 - 145 mmol/L 10/12/2023 5:08 AM [facility] Potassium, Plasma 3.7 3.7 - 4.8 mmol/L 10/12/2023 5:08 AM [facility] Chloride, Plasma 104 97 - 107 mmol/L 10/12/2023 5:08 AM [facility] CO2, Plasma 24 22 - 29 mmol/L 10/12/2023 5:08 AM [facility] Anion Gap 7 6 - 16 mmol/L 10/12/2023 5:08 AM [facility] Total Calcium, Plasma 8.6(L) 8.9 - 10.2 mg/dL 10/12/2023 5:08 AM [facility] Total Protein 5.8(L) 6.3 - 7.9 g/dL 10/12/2023 5:08 AM [facility] Albumin, Plasma 2.9(L) 3.5 - 5.2 g/dL 10/12/2023 5:08 AM [facility] AST, Plasma 19 10 - 35 U/L 10/12/2023 5:08 AM [facility] ALT, Plasma 10 10 - 35 U/L 10/12/2023 5:08 AM [facility] Alkaline Phosphatase, Plasma 99 35 - 104 U/L 10/12/2023 5:08 AM [facility] Total Bilirubin, Plasma 0.4 0.2 - 1.1 mg/dL 10/12/2023 5:08 AM [facility] eGFRcr 107.3 mL/min/1.7 3m*2 10/12/2023 5:08 AM [facility] Comment:Reported eGFRcr in m L/min/1.73m2 is based the CKD-EPI 2020 equation that does not use a race coefficient. Blood Venous blood specimen / Unknown Venipuncture / Unknown 10/12/2023 4:15 AM EST 10/12/2023 4:46 AM EST us Isaac Boone MD LAB BLOOD ORDERABLES Final Resul t [facility] [address] [place] [id number] * (ABNORMAL) CBC W/O Differential (10/12/2023 4:15 AM EST) WBC Count 5.33 3.70 - 10.30 10*3/uL LAB HEMATOLOGY METHOD 10/12/2023 4:48 AM EST [facility] RBC Count 3.40(L) 3.90 - 5.20 10*6/uL LAB HEMATOLOGY METHOD 10/12/2023 4:48 AM EST [facility] HGB 7.9(L) 11.2 - 15.7 g/dL LAB HEMATOLOGY METHOD 10/12/2023 4:48 AM EST [facility] HCT 26.6(L) 34.0 - 45.0 % LAB HEMATOLOGY METHOD 10/12/2023 4:48 AM EST [facility] Platelet Count 212 155 - 369 10*3/uL LAB HEMATOLOGY METHOD 10/12/2023 4:48 AM EST [facility] MCV 78(L) 79 - 98 fL LAB HEMATOLOGY METHOD 10/12/2023 4:48 AM EST [facility] MCH 23.2(L) 26.0 - 32.0 pg LAB HEMATOLOGY METHOD 10/12/2023 4:48 AM EST [facility] MCHC 29.7(L) 30.7 - 35.5 g/dL LAB HEMATOLOGY METHOD 10/12/2023 4:48 AM EST [facility] RDW 20.4(H) 11.5 - 14.5 % LAB HEMATOLOGY METHOD 10/12/2023 4:48 AM EST [facility] MPV 10.6 8.8 - 12.5 fL LAB HEMATOLOGY METHOD 10/12/2023 4:48 AM EST [facility] nRBC 0.8(H) <=0.0 per 100 WBCs LAB HEMATOLOGY METHOD 10/12/2023 4:48 AM EST [facility] Blood Venous blood specimen / Unknown Venipuncture / Unknown 10/12/2023 4:15 AM EST 10/12/2023 4:46 AM EST Isaac Boone MD LAB BLOOD ORDERABLES Final Resul t [facility] [address] [place] [address] * Transfuse RBC (10/10/2023 10:54 PM EST) Isaac Boone MD BLOOD TRANSFUSION ORDERABLES Fin al Result * Transfuse RBC: 1 Units (10/10/2023 10:54 PM EST) Isaac Boone MD BLOOD TRANSFUSION ORDERABLES Fin al Result * Prepare Leukocyte Reduced RBC: 1 Units (10/10/2023 5:28 PM EST) Product Code [id number] BLOO D BANK Dispense Status Transfused BLOOD BANK Blood Expiration Date [id number] BLOOD BANK Unit Number [id number] B LOOD BANK Product Blood Type 5100 BLOOD BANK Blood Type O+ BLOOD BANK Crossmatch Compatible BLOOD BANK Other Isaac Boone MD BLOOD BANK PRODUCT ORDERABLES Fi nal Result BLOOD BANK [address] [place] [address], * (ABNORMAL) Comprehensive metabolic panel (10/10/2023 6:57 AM EST) Glucose, Plasma 99 74 - 99 mg/dL 10/10/2023 11:42 AM EST [facility] BUN, Plasma 8 7 - 21 mg/dL 10/10/2023 11:42 AM EST [facility] Creatinine, Plasma 0.66 0.60 - 1.10 mg/dL 10/10/2023 11:42 AM EST [facility] BUN/Creatinine Ratio 12 10/10/2023 11:42 AM EST [facility] Sodium, Plasma 131(L) 136 - 145 mmol/L 10/10/2023 11:42 AM EST [facility] Potassium, Plasma 3.6(L) 3.7 - 4.8 mmol/L 10/10/2023 11:42 AM EST [facility] Chloride, Plasma 99 97 - 107 mmol/L 10/10/2023 11:42 AM EST [facility] CO2, Plasma 25 22 - 29 mmol/L 10/10/2023 11:42 AM EST [facility] Anion Gap 7 6 - 16 mmol/L 10/10/2023 11:42 AM EST [facility] Total Calcium, Plasma 8.5(L) 8.9 - 10.2 mg/dL 10/10/2023 11:42 AM EST [facility] Total Protein 5.9(L) 6.3 - 7.9 g/dL 10/10/2023 11:42 AM EST [facility] Albumin, Plasma 3.0(L) 3.5 - 5.2 g/dL 10/10/2023 11:42 AM EST [facility] AST, Plasma 34 10 - 35 U/L 10/10/2023 11:42 AM EST [facility] ALT, Plasma 11 10 - 35 U/L 10/10/2023 11:42 AM EST [facility] Alkaline Phosphatase, Plasma 91 35 - 104 U/L 10/10/2023 11:42 AM EST [facility] Total Bilirubin, Plasma 0.6 0.2 - 1.1 mg/dL 10/10/2023 11:42 AM EST [facility] eGFRcr 107.7 mL/min/1.7 3m*2 10/10/2023 11:42 AM EST [facility] Comment:Reported eGFRcr in m L/min/1.73m2 is based the CKD-EPI 2020 equation that does not use a race coefficient. Blood Venous blood specimen / Unknown Venipuncture / Unknown 10/10/2023 6:57 AM EST 10/10/2023 6:57 AM EST us Isaac Boone MD LAB BLOOD ORDERABLES Final Resul t [facility] [address] [place] [address] * Light Green Top (10/10/2023 6:57 AM EST) Extra Hold for add-ons 10/10/2023 9:01 AM EST [facility] Comment:Auto resulted. Blood Venous blood specimen / Unknown Venipuncture / Unknown 10/10/2023 6:57 AM EST 10/10/2023 6:57 AM EST us Isaac Boone MD LAB BLOOD ORDERABLES Final Resul t Performing Organization Address [facility] Co de Phone Number [facility] [address] [place] [address] * (ABNORMAL) Hemoglobin and Hematocrit, Blood (10/10/2023 3:31 AM EST) HGB 6.7(L) 11.2 - 15.7 g/dL LAB HEMATOLOGY METHOD 10/10/2023 4:08 AM EST [facility] HCT 23.5(L) 34.0 - 45.0 % LAB HEMATOLOGY METHOD 10/10/2023 4:08 AM EST [facility] Blood Venous blood specimen / Unknown Venipuncture / Unknown 10/10/2023 3:31 AM EST 10/10/2023 4:04 AM EST us Isaac Boone MD LAB BLOOD ORDERABLES Final Resul t Performing Organization Address City/[facility] Co de Phone Number [facility] [address] [place] [address] * Type and screen (10/09/2023 10:17 AM EST) ABO/Rh O Positive 10/09/2023 10:28 AM EST BLOOD BANK Antibody Screen Negative 10/09/2023 10:28 AM EST BLO[facility] B[facility] Blood Venous blood specimen / Unknown Venipuncture / Unknown 10/09/2023 10:17 AM EST 10/09/2023 10:20 AM EST us Isaac Bonoe MD LAB BLOOD BANK TEST ORDERABLES F inal Result Performing Organization Address City/[facility]/ZIP Co de Phone Number BLOOD BANK [address] [place] [address], * Magnesium, Plasma (10/09/2023 3:33 AM EST) Magnesium, Plasma 2.3 1.9 - 2.4 mg/dL 10/09/2023 4:25 AM EST [facility] Blood Venous blood specimen / Unknown Venipuncture / Unknown 10/09/2023 3:33 AM EST 10/09/2023 3:49 AM EST us Isaac Boone MD LAB BLOOD ORDERABLES Final Resul t Performing Organization Address [facility] de Phone Number [facility] [address] [place] [address] * Phosphorus, Plasma (10/09/2023 3:33 AM EST) Phosphorus, Plasma 2.8 2.5 - 4.5 mg/dL 10/09/2023 4:25 AM EST [facility] Blood Venous blood specimen / Unknown Venipuncture / Unknown 10/09/2023 3:33 AM EST 10/09/2023 3:49 AM EST us Isaac Boone MD LAB BLOOD ORDERABLES Final Resul t Performing Organization Address [facility] Phone Number [facility] [address] [place] [address] * (ABNORMAL) Basic Metabolic Panel, Plasma (10/09/2023 3:33 AM EST) Glucose, Plasma 115(H) 74 - 99 mg/dL 10/09/2023 4:25 AM EST [facility] BUN, Plasma 16 7 - 21 mg/dL 10/09/2023 4:25 AM EST [facility] Creatinine, Plasma 0.92 0.60 - 1.10 mg/dL 10/09/2023 4:25 AM EST [facility] BUN/Creatinine Ratio 17 10/09/2023 4:25 AM EST [facility] Sodium, Plasma 131(L) 136 - 145 mmol/L 10/09/2023 4:25 AM EST [facility] Potassium, Plasma 4.1 3.7 - 4.8 mmol/L 10/09/2023 4:25 AM EST [facility] Chloride, Plasma 100 97 - 107 mmol/L 10/09/2023 4:25 AM EST [facility] CO2, Plasma 23 22 - 29 mmol/L 10/09/2023 4:25 AM EST [facility] Anion Gap 8 6 - 16 mmol/L 10/09/2023 4:25 AM EST [facility] Total Calcium, Plasma 8.7(L) 8.9 - 10.2 mg/dL 10/09/2023 4:25 AM EST [facility] eGFRcr 76.5 mL/min/1.7 3m*2 10/09/2023 4:25 AM EST [facility] Comment:Reported eGFRcr in m L/min/1.73m2 is based the CKD-EPI 2020 equation that does not use a race coefficient. Blood Venous blood specimen / Unknown Venipuncture / Unknown 10/09/2023 3:33 AM EST 10/09/2023 3:49 AM EST Isaac Boone MD LAB BLOOD ORDERABLES Final Resul t Performing Organization Address City/State/[facility] Co de Phone Number [facility] [address] [place] [phone] * (ABNORMAL) CBC W/O Differential (10/09/2023 3:33 AM EST) WBC Count 10.34(H) 3.70 - 10.30 10*3/uL LAB HEMATOLOGY METHOD 10/09/2023 4:00 AM EST [facility] RBC Count 2.98(L) 3.90 - 5.20 10*6/uL LAB HEMATOLOGY METHOD 10/09/2023 4:00 AM EST [facility] HGB 6.3(LL) 11.2 - 15.7 g/dL LAB HEMATOLOGY METHOD 10/09/2023 4:00 AM EST [facility] HCT 23.0(L) 34.0 - 45.0 % LAB HEMATOLOGY METHOD 10/09/2023 4:00 AM EST [facility] Platelet Count 232 155 - 369 10*3/uL LAB HEMATOLOGY METHOD 10/09/2023 4:00 AM EST [facility] MCV 77(L) 79 - 98 fL LAB HEMATOLOGY METHOD 10/09/2023 4:00 AM EST [facility] MCH 21.1(L) 26.0 - 32.0 pg LAB HEMATOLOGY METHOD 10/09/2023 4:00 AM EST [facility] MCHC 27.4(L) 30.7 - 35.5 g/dL LAB HEMATOLOGY METHOD 10/09/2023 4:00 AM EST [facility] RDW 17.6(H) 11.5 - 14.5 % LAB HEMATOLOGY METHOD 10/09/2023 4:00 AM EST [facility] MPV 10.2 8.8 - 12.5 fL LAB HEMATOLOGY METHOD 10/09/2023 4:00 AM EST [facility] nRBC 0.0 <=0.0 per 100 WBCs LAB HEMATOLOGY METHOD 10/09/2023 4:00 AM EST [facility] Blood Venous blood specimen / Unknown Venipuncture / Unknown 10/09/2023 3:33 AM EST 10/09/2023 3:49 AM EST Isaac Boone MD LAB BLOOD ORDERABLES Final Resul t Performing Organization Address City/[facility] Co de Phone Number [facility] [address] [place] [address] * ECG Adult (10/08/2023 11:07 AM EST) EKG DIAGNOSIS CLASS Borderline Abnormal MUSE ECG Ventricular Rate 103 BPM MUSE ECG Atrial Rate 103 BPM MUSE ECG WI Interval 136 ms MUSE ECG QRSD Interval 74 ms MUSE ECG QT Interval 326 ms MUSE ECG QTC Interval 427 ms MUSE ECG P [place] 60 degrees MUSE ECG R [place] 26 degrees MUSE ECG T Wave [place] 30 degrees MUSE ECG Diagnosis Sinus tachycardia MUSE ECG Diagnosis Otherwise normal ECG MUSE ECG Diagnosis Questionable change in MUSE ECG Diagnosis anterior R wave progression MUSE ECG Diagnosis Confirmed by Christian Ybarra ([id number]) on 10/08/2023 11:13:26 AM MUSE ECG 10/08/2023 11:0 7 AM EST 10/08/2023 11:13 AM EST Isaac Boone MD ECG ORDERABLES Final Result Performing Organization Address City/[facility]/ZIP Co de Phone Number MUSE ECG * XR Abdomen 1 View (10/08/2023 9:51 AM EST) Anatomical Region Laterality Modality Body Digital Radiogra phy Impressions 10/08/2023 9:59 AM EST No radiographic evidence of bowel obstruction. CRITICAL RESULT: ?? No. COMMUNICATION: Per this written report. Drafted by Brock Caraballo MD on 10/08/2023 9:56 AM Final report signed by Brock Caraballo MD on 10/08/2023 9:59 AM Narrative 10/08/2023 9:59 AM EST CLINICAL INDICATION: chest pain post op abdominal hernia repair TECHNIQUE: Supine radiograph of the abdomen. COMPARISON: None. FINDINGS: Minimal left basilar atelectasis. 2 surgical drains project over the abdomen and pelvis. Paucity of abdominal bowel gas limits assessment. However, there are no gas-filled dilated small or large bowel segments to suggest ileus or obstruction. Procedure Note Brock Caraballo MD - 10/08/2023 CLINICAL INDICATION: chest pain post op abdominal hernia repair TECHNIQUE: Supine radiograph of the abdomen. COMPARISON: None. FINDINGS: Minimal left basilar atelectasis. 2 surgical drains project over the abdomen and pelvis. Paucity ofabdominal bowel gas limits assessment. However, there are no gas-filleddilated small or large bowel segments to suggest ileus or obstruction. IMPRESSION: No radiographic evidence of bowel obstruction. CRITICAL RESULT: No. COMMUNICATION: Per this written report. Drafted by Brock Caraballo MD on 10/08/2023 9:56 AM Final report signed by Brock Caraballo MD on 10/08/2023 9:59 AM Isaac Boone MD IMG XR PROCEDURES Final Result * XR Chest 1 View (10/08/2023 9:51 AM EST) Anatomical Region Laterality Modality Chest Digital Radiogra phy Impressions 10/08/2023 11:36 AM EST Hardware removal with significant improved aeration CRITICAL RESULT: ?? No. COMMUNICATION: Per this written report. Drafted by Alexandru Powell MD on 10/08/2023 11:35 AM Final report signed by Alexandru Powell MD on 10/08/2023 11:36 AM Narrative 10/08/2023 11:36 AM EST CLINICAL INDICATION: chest pain TECHNIQUE: XR CHEST 1 VIEW COMPARISON: September 26, 2021. FINDINGS: Removal of right IJ central venous catheter, NG tube and feeding tube. No focal airspace consolidation, pleural effusion or pneumothorax. Cardiomediastinal silhouette is stable. Procedure Note Alexandru Powell MD - 10/08/2023 CLINICAL INDICATION: chest pain TECHNIQUE: XR CHEST 1 VIEW COMPARISON: September 26, 2021. FINDINGS: Removal of right IJ central venous catheter, NG tube and feeding tube. Nofocal airspace consolidation, pleural effusion or pneumothorax.Cardiomediastinal silhouette is stable. IMPRESSION: Hardware removal with significant improved aeration CRITICAL RESULT: No. COMMUNICATION: Per this written report. Drafted by Alexandru Powell MD on 10/08/2023 11:35 AM Final report signed by Alexandru Powell MD on 10/08/2023 11:36 AM Isaac Boone MD IMG XR PROCEDURES Final Result * Phosphorus, Plasma (10/08/2023 2:35 AM EST) Phosphorus, Plasma 2.7 2.5 - 4.5 mg/dL 10/08/2023 3:23 AM EST [facility] Blood Venous blood specimen / Unknown Venipuncture / Unknown 10/08/2023 2:35 AM EST 10/08/2023 2:54 AM EST Isaac Boone MD LAB BLOOD ORDERABLES Final Resul t Performing Organization Address [facility] de Phone Number [facility] [address] [place] [address] * (ABNORMAL) Magnesium, Plasma (10/08/2023 2:35 AM EST) Magnesium, Plasma 1.8(L) 1.9 - 2.4 mg/dL 10/08/2023 3:23 AM EST [facility] Blood Venous blood specimen / Unknown Venipuncture / Unknown 10/08/2023 2:35 AM EST 10/08/2023 2:54 AM EST us Isaac Boone MD LAB BLOOD ORDERABLES Final Resul t Performing Organization Address City/[facility] Co de Phone Number [facility] [address] [place] [address] * (ABNORMAL) Basic metabolic panel (10/08/2023 2:35 AM EST) Glucose, Plasma 131(H) 74 - 99 mg/dL 10/08/2023 3:23 AM EST [facility] BUN, Plasma 13 7 - 21 mg/dL 10/08/2023 3:23 AM EST [facility] Creatinine, Plasma 0.75 0.60 - 1.10 mg/dL 10/08/2023 3:23 AM EST [facility] BUN/Creatinine Ratio 17 10/08/2023 3:23 AM EST [facility] Sodium, Plasma 133(L) 136 - 145 mmol/L 10/08/2023 3:23 AM EST [facility] Potassium, Plasma 4.5 3.7 - 4.8 mmol/L 10/08/2023 3:23 AM EST [facility] Chloride, Plasma 104 97 - 107 mmol/L 10/08/2023 3:23 AM EST [facility] CO2, Plasma 21(L) 22 - 29 mmol/L 10/08/2023 3:23 AM EST [facility] Anion Gap 8 6 - 16 mmol/L 10/08/2023 3:23 AM EST [facility] Total Calcium, Plasma 8.6(L) 8.9 - 10.2 mg/dL 10/08/2023 3:23 AM EST [facility] eGFRcr 97.7 mL/min/1.7 3m*2 10/08/2023 3:23 AM [facility] Comment:Reported eGFRcr in m L/min/1.73m2 is based the CKD-EPI 2020 equation that does not use a race coefficient. Blood Venous blood specimen / Unknown Venipuncture / Unknown 10/08/2023 2:35 AM EST 10/08/2023 2:54 AM EST us Isaac Boone MD LAB BLOOD ORDERABLES Final Resul t [facility] [address] [place] [address] * (ABNORMAL) CBC W/O Differential (10/08/2023 2:35 AM EST) WBC Count 18.35(H) 3.70 - 10.30 10*3/uL LAB HEMATOLOGY METHOD 10/08/2023 3:02 AM EST [facility] RBC Count 3.61(L) 3.90 - 5.20 10*6/uL LAB HEMATOLOGY METHOD 10/08/2023 3:02 AM EST [facility] HGB 7.7(L) 11.2 - 15.7 g/dL LAB HEMATOLOGY METHOD 10/08/2023 3:02 AM EST [facility] HCT 27.5(L) 34.0 - 45.0 % LAB HEMATOLOGY METHOD 10/08/2023 3:02 AM EST [facility] Platelet Count 269 155 - 369 10*3/uL LAB HEMATOLOGY METHOD 10/08/2023 3:02 AM EST [facility] MCV 76(L) 79 - 98 fL LAB HEMATOLOGY METHOD 10/08/2023 3:02 AM EST [facility] MCH 21.3(L) 26.0 - 32.0 pg LAB HEMATOLOGY METHOD 10/08/2023 3:02 AM EST [facility] MCHC 28.0(L) 30.7 - 35.5 g/dL LAB HEMATOLOGY METHOD 10/08/2023 3:02 AM EST [facility] RDW 16.8(H) 11.5 - 14.5 % LAB HEMATOLOGY METHOD 10/08/2023 3:02 AM EST [facility] MPV 10.3 8.8 - 12.5 fL LAB HEMATOLOGY METHOD 10/08/2023 3:02 AM EST [facility] nRBC 0.0 <=0.0 per 100 WBCs LAB HEMATOLOGY METHOD 10/08/2023 3:02 AM EST [facility] Blood Venous blood specimen / Unknown Venipuncture / Unknown 10/08/2023 2:35 AM EST 10/08/2023 2:54 AM EST us Isaac Boone MD LAB BLOOD ORDERABLES Final Resul t [facility] [address] [place] [address] * Surgical Pathology Exam (10/07/2023 12:36 PM EST) Case Report Surgical Pathology ?Case: [id number] ? Authorizing Provider: ??Isaac Boone MD ? Collected: ? 10/07/2023 1236 ? Ordering Location: ? [facility] ? Received: ?10/07/2023 1424 ? Pathologist: ? Kev Tipton MD ? Specimen: ?Abdominal Wall, ABDOMINAL WALL SKIN ??GRAFT TISSUE ? 10/09/2023 11:38 AM EST [facility] Final Diagnosis A. ABDOMINAL WALL SKIN, GRAFT TISSUE EXCISION: - BENIGN SKIN AND SUBCUTANEOUS TISSUE 10/09/2023 11:38 AM EST [facility] Clinical Information Incisional hernia with obstruction [K43.0] 10/09/2023 11:38 AM EST [facility] Gross Description A. ABDOMINAL WALL SKIN GRAFT TISSUE The specimen is received in formalin labeled ? abdominal wall skin graft tissue? . Consists of a 26.0 x 11.0 x 1.0 cm irregular portion of pink-fink skin and adipose tissue. The skin surface is markedly wrinkled and unremarkable. The specimen is serially sectioned to reveal a pink-fink to yellow, dense fibrous-adipose tissue. Quill Picking Machine Operator sections are submitted into cassettes A1-A2 as follows: A1: Sectioned to include skin A2: Dense fibrous-adipose tissue Darshan Martinez Cold Time: 1m 10/09/2023 11:38 AM EST [facility] Note: A resident was involved in the service. I attest I examined the relevant preparations for the specimens and confirmed the diagnosis or interpretation. 10/09/2023 11:38 AM EST [facility] Tissue Abdominal wall / Unknown 10/07/2023 12:36 PM EST 10/07/2023 2:24 PM EST Comment:Pre-op diagnosis: Incisional hernia with obstruction [K43.0] us Isaac Boone MD LAB PATHOLOGY ORDERABLES Final R esult Performing Organization Address City/State/[facility] Co de Phone Number [facility] [address] [place], [place] [id number] * POCT Urine (10/07/2023 9:16 AM EST) Urine - Point of Care Negative - women after 7 weeks gestation and dilute urine (specific gravity <1.010) may have false negative results. Plasma HCG testing is recommended. Test performed at Point of Care. Negative - women after 7 weeks gestation and dilute urine (specific gravity <1.010) may have false negative results. Plasma HCG testing is recommended. Test performed at Point of Care. INTERNAL QC OK, PREG URINE yes KIT LOT NUMBER, PREG URINE [id number] KIT EXPIRATION DATE, PREG URINE [id number] Urine Urine specimen obtained by clean catch procedure / Unknown 10/07/2023 9:16 AM EST Result [facility] Adalberto Mckeon MD POINT OF CARE TEST ENTER/E DIT ORDERABLES Final Result documented in this encounter Visit Diagnoses Diagnosis Incisional hernia with obstruction- Primary Incisional hernia with obstruction Status post split thickness skin graft Incarcerated incisional hernia Incisional hernia with obstruction documented in this encounter Admitting Diagnoses Diagnosis Incisional hernia with obstruction Incarcerated incisional hernia Incisional hernia with obstruction Status post split thickness skin graft documented in this encounter Administered Medications Inactive Administered Medications - up to 3 most recent administrations Medication Order MAR Action Action Date Dose Rate Site acetaminophen (Ofirmev) injection 1,000 mg 1,000 mg, Intravenous, Every 6 hours scheduled, 4 doses, First dose on Fri10/07/23 at 1445, Last dose on Fri10/08/23 at 0600, Routine New Bag 10/08/2023 5:27 AM EST 1,000 mg New Bag 10/08/2023 12:45 AM EST 1,000 mg acetaminophen (Tylenol) tablet 1,000 mg 1,000 mg, Oral, Once, 1 dose, On Fri10/07/23 at 0815, Routine, Holding - Preprocedure Given 10/07/2023 8:35 AM EST 1,000 mg acetaminophen (Tylenol) tablet 1,000 mg 1,000 mg, Oral, Every 6 hours scheduled, First dose (after last modification) on Fri10/12/23 at 1200, Until Discontinued, Routine, Phase II/On Unit Given 10/13/2023 12:01 PM EST 1,000 mg Given 10/12/2023 11:58 PM EST 1,000 mg Given 10/12/2023 5:40 PM EST 1,000 mg acetaminophen (Tylenol) tablet 650 mg 650 mg, Oral, Every 6 hours PRN, Starting on Fri10/08/23 at 0000, Until Fri10/12/23 at 0816, Routine, Phase II/On Unit, mild pain, fever, as defined by service Given 10/10/2023 12:02 PM EST 650 mg alvimopan (Entereg) capsule 12 mg 12 mg, Oral, 2 times daily, 10 doses, First dose on Fri10/07/23 at 1445, Last dose on Fri10/11/23 at 2100, Routine, Phase II/On Unit Given 10/11/2023 8:59 AM EST 12 mg Given 10/10/2023 8:51 PM EST 12 mg Given 10/10/2023 8:44 AM EST 12 mg calcium carbonate (Tums) chewable tablet 1,000 mg 1,000 mg, Oral, 4 times daily PRN, Starting on Fri10/08/23 at 0852, Until Fri10/13/23 at 1848, Routine, indigestion, heartburn Given 10/08/2023 9:09 AM EST 1,0 00 mg calcium carbonate (Tums) chewable tablet 500 mg 500 mg, Oral, 4 times daily PRN, Starting on Fri10/08/23 at 0650, Until Fri10/08/23 at 0852, Routine, indigestion, heartburn Given 10/08/2023 7:00 AM EST 500 mg cyclobenzaprine (Flexeril) tablet 5 mg 5 mg, Oral, 3 times daily, First dose on Fri10/07/23 at 1600, Until Discontinued, Routine, Phase II/On Unit Given 10/13/2023 3:09 PM EST 5 mg Given 10/13/2023 8:10 AM EST 5 mg Given 10/12/2023 8:30 PM EST 5 mg darbepoetin aleksandra (Aranesp) injection 100 mcg 100 mcg, Subcutaneous, Daily, First dose on Fri10/09/23 at 1100, Until Discontinued, RoutineIndications:Anemia Given 10/10/2023 8:51 AM EST 100 mcg Left Lower Abdomen Given 10/09/2023 11:28 AM EST 100 mcg L eft Lower Abdomen dextrose 5 % and sodium chloride 0.45 % infusion 84 mL/hr, Intravenous, Continuous, Starting on Fri10/07/23 at 1445, Until Fri10/10/23 at 0647, Routine New Bag 10/09/2023 9:41 PM EST 84 mL/ hr 84 mL/hr New Bag 10/08/2023 4:41 AM EST 84 mL/hr 84 mL/hr New Bag 10/07/2023 4:11 PM EST 84 mL/hr 84 mL/hr diphenhydrAMINE (Benadryl) tablet 12.5 mg 12.5 mg, Oral, Once, 1 dose, On Fri10/08/23 at 0930, Routine Given 10/08/2023 9:09 AM EST 12.5 mg diphenhydrAMINE (Benadryl) tablet 50 mg 50 mg, Oral, Every 6 hours PRN, Starting on Fri10/10/23 at 1114, Until Fri10/13/23 at 1848, Routine, itching Given 10/10/2023 12:02 PM EST 50 mg droperidol (Inapsine) injection 1.25 mg 1.25 mg, Intravenous, Once as needed, 1 dose, Starting on Fri10/07/23 at 1409, Until Fri10/07/23 at 1457, Routine, Recovery (Phase I only), nausea, vomiting Given 10/07/2023 2:57 PM EST 1. 25 mg fentaNYL (Sublimaze) injection 50 mcg 50 mcg, Intravenous, Every 5 min PRN, 2 doses, Starting on Fri10/07/23 at 1409, Until Fri10/07/23 at 1645, Routine, Recovery (Phase I only), pain score of 5-8 out of 10 Given 10/07/2023 2:36 PM EST 50 mcg ferrous sulfate EC tablet 324 mg 324 mg, Oral, Daily with breakfast, First dose on Fri10/09/23 at 1030, Until Discontinued, Routine Given 10/13/2023 8:11 AM EST 324 mg Given 10/12/2023 7:08 AM EST 324 mg Given 10/11/2023 8:59 AM EST 324 mg gabapentin (Neurontin) capsule 100 mg 100 mg, Oral, 3 times daily, First dose on Fri10/07/23 at 1600, Until Discontinued, Routine, Phase II/On Unit Given 10/13/2023 3:10 PM EST 100 mg Given 10/13/2023 8:11 AM EST 100 mg Given 10/12/2023 8:30 PM EST 100 mg gabapentin (Neurontin) capsule 300 mg 300 mg, Oral, Once, 1 dose, On Fri10/07/23 at 0815, Routine, Holding - Preprocedure Given 10/07/2023 8:36 AM EST 300 mg gi cocktail oral solution 30 mL 30 mL, Oral, Once, 1 dose, On Fri10/08/23 at 1130, Routine Given 10/08/2023 11:13 AM EST 30 mL gi cocktail oral solution 30 mL 30 mL, Oral, Once, 1 dose, On Fri10/08/23 at 2315, Routine Given 10/08/2023 11:56 PM EST 30 mL heparin (porcine) injection 5,000 Units 5,000 Units, Subcutaneous, Every 8 hours scheduled, First dose on Fri10/07/23 at 0815, Until Discontinued, Routine, Holding - Preprocedure Given 10/07/2023 9:26 AM EST 5,000 Units Left Upper Arm (Back) heparin (porcine) injection 5,000 Units 5,000 Units, Subcutaneous, Every 8 hours scheduled, First dose on Fri10/07/23 at 1700, Until Discontinued, Routine, Phase II/On Unit Given 10/08/2023 5:27 AM EST 5,000 Units Left Upper Arm (Back) Given 10/07/2023 9:53 PM EST 5,000 Units L eft Upper Arm (Back) HYDROmorphone (Dilaudid) injection 0.5 mg 0.5 mg, Intravenous, Every 10 min PRN, 2 doses, Starting on Fri10/07/23 at 1409, Until Fri10/07/23 at 1510, Routine, Recovery (Phase I only), pain score of 9-10 out of 10 Given 10/07/2023 3:10 PM EST 0.5 mg Given 10/07/2023 2:29 PM EST 0.5 mg HYDROmorphone 1 mg/mL BEADING INSTALLER (naive protocol) Patient BEADING INSTALLER Dose: 0.2 mg, BEADING INSTALLER Lockout: 6 Minutes, Continuous Dose (MG/hr): 0 mg/hr, Nurse Loading Dose: 0.4 mg, Intravenous, Routine New Syringe/Cartridge 10/09/2023 9:31 PM EST New Syringe/Cartridge 10/07/2023 4:02 PM EST ibuprofen tablet 400 mg 400 mg, Oral, Every 6 hours PRN, Starting on Fri10/12/23 at 0813, Until Fri10/13/23 at 1848, Routine, Phase II/On Unit, mild pain, fever, moderate pain Given 10/12/2023 5:40 PM EST 400 mg Given 10/12/2023 9:20 AM EST 400 mg ibuprofen tablet 600 mg 600 mg, Oral, Every 6 hours PRN, Starting on Fri10/09/23 at 0000, Until Fri10/12/23 at 0816, Routine, Phase II/On Unit, mild pain, fever Given 10/11/2023 8:58 AM EST 600 mg Given 10/10/2023 12:02 PM EST 600 mg ketorolac (Toradol) injection 15 mg 15 mg, Intravenous, Every 6 hours scheduled, 8 doses, First dose on Fri10/07/23 at 1445, Last dose on Fri10/09/23 at 0600, Routine, Phase II/On Unit Given 10/08/2023 11:56 PM EST 15 mg Given 10/08/2023 5:02 PM EST 15 mg Given 10/08/2023 11:02 AM EST 15 mg lactated Ringer's infusion 100 mL/hr, Intravenous, Continuous, Starting on Fri10/07/23 at 0815, Until Fri10/10/23 at 0647, Routine Restarted 10/07/2023 12:47 PM EST Continued by Anesthesia 10/07/2023 10:20 AM EST 100 mL/hr New Bag 10/07/2023 8:34 AM EST 100 mL/hr 100 mL/hr lactated Ringer's infusion 20 mL/hr, Intravenous, Once, 1 dose, On Fri10/07/23 at 1430, Routine Continued from OR 10/07/2023 2:18 PM EST 20 mL/hr 20 mL/hr lidocaine (Lidoderm) 5 % patch 2 patch 2 patch, Apply externally, Every 24 hours, First dose on Fri10/12/23 at 0930, Until Discontinued, Administer over 12 Hours, Routine Medication Applied 10/13/2023 8:11 AM EST 2 patches Abdominal Tissue Medication Applied 10/12/2023 9:19 AM EST 2 patches Abdominal Tissue magnesium oxide (Mag-Ox) tablet 400 mg 400 mg, Oral, Once, 1 dose, On Fri10/12/23 at 0800, Routine Given 10/12/2023 9:20 AM EST 400 mg magnesium sulfate IVPB 2 g 2 g, Intravenous, Once, 1 dose, On Fri10/08/23 at 0630, at 25 mL/hr, Administer over 2 Hours, Routine New Bag 10/08/2023 6:41 AM EST 2 g 25 mL/hr naloxone (Narcan) 2 mg in sodium chloride 0.9 % 100 mL (0.02 mg/mL) infusion (Urinary Retention or Pruritus) 0.25-1 mcg/kg/hr ? 77.6 kg (0.97-3.88 mL/hr), Intravenous, Titrated PRN, Starting on Fri10/07/23 at 1524, Until Fri10/10/23 at 1124, Routine, urinary retention, itching New Bag 10/08/2023 2:18 PM EST 0.25 mcg/kg/hr 0.97 mL/hr ondansetron (Zofran) injection 4 mg 4 mg, Intravenous, Every 6 hours PRN, Starting on Fri10/08/23 at 0819, Until Fri10/10/23 at 1124, Routine, nausea, vomiting Given 10/08/2023 8:36 AM EST 4 mg ondansetron ODT (Zofran-ODT) disintegrating tablet 4 mg 4 mg, Oral, Every 6 hours PRN, Starting on Fri10/10/23 at 1115, Until Fri10/13/23 at 1848, Routine, nausea, vomiting oxyCODONE (Roxicodone) immediate release tablet 10 mg 10 mg, Oral, Every 6 hours PRN, Starting on Fri10/10/23 at 0649, Until Fri10/12/23 at 0816, Routine, severe pain Given 10/12/2023 7:08 AM EST 10 mg Given 10/11/2023 8:16 PM EST 10 mg Given 10/11/2023 12:54 PM EST 10 mg oxyCODONE (Roxicodone) immediate release tablet 10 mg 10 mg, Oral, Every 6 hours PRN, Starting on Fri10/12/23 at 0814, Until Fri10/13/23 at 1848, Routine, Phase II/On Unit, severe pain Given 10/13/2023 1:43 PM EST 10 mg Given 10/13/2023 8:11 AM EST 10 mg Given 10/13/2023 1:18 AM EST 10 mg oxyCODONE (Roxicodone) immediate release tablet 5 mg 5 mg, Oral, Every 6 hours PRN, Starting on Fri10/12/23 at 0814, Until Fri10/13/23 at 1848, Routine, Phase II/On Unit, moderate pain pantoprazole (Protonix) EC tablet 40 mg 40 mg, Oral, Daily, First dose on Fri10/08/23 at 0915, Until Discontinued, Routine Given 10/08/2023 8:57 AM EST 40 mg pantoprazole (Protonix) injection 40 mg 40 mg, Intravenous, Daily, First dose on Fri10/08/23 at 1130, Until Discontinued, Routine Given 10/13/2023 8:10 AM EST 40 mg Given 10/12/2023 9:20 AM EST 40 mg Given 10/11/2023 8:57 AM EST 40 mg Povidone-Iodine 5 % swab solution 1 Application Nasal, Once, 1 dose, On Fri10/07/23 at 0815, Routine Given 10/07/2023 8:41 AM EST 1 Application promethazine (Phenergan) tablet 12.5 mg 12.5 mg, Oral, Every 4 hours PRN, Starting on Fri10/08/23 at 1057, Until Fri10/08/23 at 1103, Routine, nausea, vomiting Given 10/08/2023 11:02 AM EST 12.5 mg rOPINIRole (Requip) tablet 1 mg 1 mg, Oral, Nightly, First dose on Fri10/07/23 at 2100, Until Discontinued, Routine Given 10/12/2023 8:30 PM EST 1 mg Given 10/11/2023 8:15 PM EST 1 mg Given 10/10/2023 8:51 PM EST 1 mg scopolamine (Transderm-Scop) patch 1 patch 1 patch, Transdermal, Once, 1 dose, On Fri10/07/23 at 0815, Routine, Holding - Preprocedure Medication Applied 10/07/2023 8:35 AM EST 1 patch Behind Left Ear senna-docusate (Azma-Colace) 8.6-50 MG per tablet 1 tablet 1 tablet, Oral, 2 times daily, First dose on Fri10/08/23 at 0900, Until Discontinued, Routine, Phase II/On Unit Given 10/13/2023 8:11 AM EST 1 tablet Given 10/12/2023 8:30 PM EST 1 tablet Given 10/12/2023 9:20 AM EST 1 tablet sodium chloride 0.9 % bolus 1,000 mL 1,000 mL, Intravenous, Once, 1 dose, On Fri10/10/23 at 2130, Administer over 15 Minutes, Routine New Bag 10/10/2023 9:54 PM EST 1,000 mL 4000 mL/hr zolpidem (Ambien) tablet 10 mg 10 mg, Oral, Nightly PRN, Starting on Fri10/10/23 at 2100, Until Fri10/13/23 at 1848, sleep Given 10/12/2023 11:58 PM EST 10 mg Given 10/11/2023 11:18 PM EST 10 mg Given 10/10/2023 9:54 PM EST 10 mg documented in this encounter Active and Recently Administered Medications Times are shown in EST. Scheduled Medication Order 10/11/2023 10/12/2023 10/13/2023 acetaminophen (Tylenol) tablet 1,000 mg 1,000 mg, Oral, Every 6 hours scheduled, First dose (after last modification) on Fri10/12/23 at 1200, Until Discontinued, Routine, Phase II/On Unit 1103 (Not Given - Provider: Chelsea Booth RN - Reason: Patient/family refused)1740 (Given - Provider: Chelsea Botoh RN)2358 (Given - Provider: Barry Alves II, JOSE) 0522 (Not Given - Provider: Barry Alves II, RN - Reason: Patient/family refused)1201 (Given - Provider: Rashida Sharpe)1800 (Canceled Entry - Provider: Automatic Discharge Provider - Comment: Automatically canceled at discontinue of medication order) alvimopan (Entereg) capsule 12 mg (CANCELED) 12 mg, Oral, 2 times daily, 10 doses, First dose on Fri10/07/23 at 1445, Last dose on Fri10/11/23 at 2100, Routine, Phase II/On Unit 0859 (Given - Provider: Chelsea Booth RN) cyclobenzaprine (Flexeril) tablet 5 mg 5 mg, Oral, 3 times daily, First dose on Fri10/07/23 at 1600, Until Discontinued, Routine, Phase II/On Unit 0859 (Given - Provider: Chelsea Booth RN)1640 (Given - Provider: Chelsea Booth RN)2014 (Given - Provider: Yanni Subramanian RN) 0920 (Given - Provider: Chelsea Booth RN)153 (Given - Provider: Chelsea Booth RN)2030 (Given - Provider: Barry Alves II, RN) 0810 (Given - Provider: Rashida Sharpe)1509 (Given - Provider: Rashida Sharpe) ferrous sulfate EC tablet 324 mg 324 mg, Oral, Daily with breakfast, First dose on Fri10/09/23 at 1030, Until Discontinued, Routine 0859 (Given - Provider: Chelsea Booth RN) 0708 (Given - Provider: Yanni Subramanian RN) 0811 (Given - Provider: Rashida Sharpe) gabapentin (Neurontin) capsule 100 mg 100 mg, Oral, 3 times daily, First dose on Fri10/07/23 at 1600, Until Discontinued, Routine, Phase II/On Unit 0859 (Given - Provider: Chelsea Booth RN)1641 (Given - Provider: Chelsea Booth RN)2014 (Given - Provider: Yanni Subramanian RN) 0920 (Given - Provider: Chelsea Booth RN)153 (Given - Provider: Chelsea Booth RN)2029 (Given - Provider: Barry Alves II, RN) 0811 (Given - Provider: Rashida Sharpe)151 (Given - Provider: Rashida Sharpe) lidocaine (Lidoderm) 5 % patch 2 patch 2 patch, Apply externally, Every 24 hours, First dose on 10/12/23 at 0930, Until Discontinued, Administer over 12 Hours, Routine 918 (Medication Applied - Provider: Chelsea Booth RN)2117 (Medication Removed - Provider: Barry Alves II, RN) 810 (Medication Applied - Provider: Rashida Sharpe)0830 (Canceled Entry - Provider: Rashida Sharpe)0832 (Medication Removed - Provider: Rashida Sharpe) magnesium oxide (Mag-Ox) tablet 400 mg (COMPLETED) 400 mg, Oral, Once, 1 dose, On 10/12/23 at 0800, Routine 09 (Given - Provider: Chelsea Booth RN - Comment: cluster care) pantoprazole (Protonix) injection 40 mg 40 mg, Intravenous, Daily, First dose on Fri10/08/23 at 1130, Until Discontinued, Routine 08 (Given - Provider: Chelsea Booth RN) 09 (Given - Provider: Chelsea Booth RN) 0810 (Given - Provider: Rashida Sharpe) rOPINIRole (Requip) tablet 1 mg 1 mg, Oral, Nightly, First dose on Fri10/07/23 at 2100, Until Discontinued, Routine 2014 (Given - Provider: Yanni Subramanian RN) 2029 (Given - Provider: Barry Alves II, RN) senna-docusate (Azam-Colace) 8.6-50 MG per tablet 1 tablet 1 tablet, Oral, 2 times daily, First dose on Fri10/08/23 at 0900, Until Discontinued, Routine, Phase II/On Unit 0859 (Given - Provider: Chelsea Booth RN)2015 (Given - Provider: Yanni Subramanian RN) 09 (Given - Provider: Chelsea Booth RN)2029 (Given - Provider: Barry Alves II, RN) 0811 (Given - Provider: Rashida Sharpe) PRN Medication Order 10/11/2023 10/12/2023 10/13/2023 calcium carbonate (Tums) chewable tablet 1,000 mg 1,000 mg, Oral, 4 times daily PRN, Starting on Fri10/08/23 at 0852, Until Fri10/13/23 at 1848, Routine, indigestion, heartburn diphenhydrAMINE (Benadryl) tablet 50 mg 50 mg, Oral, Every 6 hours PRN, Starting on Fri10/10/23 at 1114, Until Fri10/13/23 at 1848, Routine, itching ibuprofen tablet 400 mg 400 mg, Oral, Every 6 hours PRN, Starting on Fri10/12/23 at 0813, Until Fri10/13/23 at 1848, Routine, Phase II/On Unit, mild pain, fever, moderate pain 0920 (Given - Provider: Chelsea Booth RN)1740 (Given - Provider: Chelsea Booth RN) ibuprofen tablet 600 mg (CANCELED) 600 mg, Oral, Every 6 hours PRN, Starting on [place] 10/09/23 at 0000, Until Fri10/12/23 at 0816, Routine, Phase II/On Unit, mild pain, fever 0858 (Given - Provider: Chelsea Booth RN) ondansetron ODT (Zofran-ODT) disintegrating tablet 4 mg 4 mg, Oral, Every 6 hours PRN, Starting on Fri10/10/23 at 1115, Until Fri10/13/23 at 1848, Routine, nausea, vomiting oxyCODONE (Roxicodone) immediate release tablet 10 mg (CANCELED) 10 mg, Oral, Every 6 hours PRN, Starting on Fri10/10/23 at 0649, Until Fri10/12/23 at 0816, Routine, severe pain 0632 (Given - Provider: Yanni Subramanian RN)1254 (Given - Provider: Chelsea Booth RN)2016 (Given - Provider: Yanni Subramanian RN) 0708 (Given - Provider: Yanni Subramanian RN) oxyCODONE (Roxicodone) immediate release tablet 10 mg(Linked Group 1) 10 mg, Oral, Every 6 hours PRN, Starting on Fri10/12/23 at 0814, Until Fri10/13/23 at 1848, Routine, Phase II/On Unit, severe pain 1338 (Given - Provider: Chelsea Booth RN)1935 (Given - Provider: Barry Alves II, JOSE) 0118 (Given - Provider: Valarie Pérez, JOSE)0811 (Given - Provider: Rashida Sharpe)1343 (Given - Provider: Rashida Sharpe) oxyCODONE (Roxicodone) immediate release tablet 5 mg(Linked Group 1) 5 mg, Oral, Every 6 hours PRN, Starting on 10/12/23 at 0814, Until 10/13/23 at 1848, Routine, Phase II/On Unit, moderate pain 1338 (See Alternative - Provider: Chelsea Booth RN)1935 (See Alternative - Provider: Barry Alves II, RN) 0118 (See Alternative - Provider: Valarie Pérez RN)0811 (See Alternative - Provider: Rashida Sharpe)1343 (See Alternative - Provider: Rashida Sharpe) zolpidem (Ambien) tablet 10 mg 10 mg, Oral, Nightly PRN, Starting on Fri10/10/23 at 2100, Until Fri10/13/23 at 1848, sleep 2318 (Given - Provider: Yanni Subramanian RN) 2358 (Given - Provider: Barry Alves II, JOSE) Linked Groups Order Group 1: oxyCODONE (Roxicodone) immediate release tablet 5 mgJump to med 5 mg, Oral, Every 6 hours PRN, Starting on 10/12/23 at 0814, Until 10/13/23 at 1848, Routine, Phase II/On Unit, moderate pain Or oxyCODONE (Roxicodone) immediate release tablet 10 mgJump to med 10 mg, Oral, Every 6 hours PRN, Starting on 10/12/23 at 0814, Until 10/13/23 at 1848, Routine, Phase II/On Unit, severe pain documented in this encounter Additional Health Concerns Assessment Noted Time A fall risk assessment has been complete d for the patient 08/20/2023 9:29 AM EST A Body Mass Index follow-up plan has been documented for the patient 10/13/2023 9:20 AM EST documented as of this encounter Care Teams Creel Operator Relationship Specialty Start Date End Date Shantanu Landeros MD [address] [place] [address] PCP - General 06/12/22 documented as of this encounter
--- OUTSIDE RECORDS SUMMARY | 2024-08-04 20:02 | XMS_ITS | Encounter Summary ---
Author Organization Healthcare Address [address] [place] [address] Care Team Providers Care Surface Ship Usw Supervisor Name Role Phone Shantanu Landeros MD Primary Care Provider [phone] Reason for Visit * Reason Comments Follow-up Add on Encounter Details Date Type Department Care Team (Late st Contact Info) Description 08/20/2023 9:00 AM EST Office Visit [facility] [address], [address] [place] [address] Isaac Boone MD [address] [phone] Incisional hernia with obstruction (Primary Dx) Social History Tobacco Use Types Packs/Day Years [...] Score 1 08/20/2023 [facility] - Occupational [...] place to sleep or slept in a detention (including now)? 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 Not on f ile documented as of this encounter Last Filed Vital Signs Vital Sign Reading Time Taken Comments Blood Pressure 131/85 08/20/2023 9:29 AM EST Pulse 99 08/20/2023 9:29 AM EST Temperature 36.3 ??C (97.3 ??F) 08/20/2023 9:29 AM ES T Respiratory Rate 16 08/20/2023 9:29 AM EST Oxygen Saturation - - Inhaled Oxygen Concentration - - Weight 78.9 kg (174 lb) 08/20/2023 9:29 AM EST Height 170.2 cm (5' 7 ) 08/20/2023 9:29 AM EST Body Mass Index 27.25 08/20/2023 9:29 AM EST documented in this encounter Miscellaneous Notes * Progress Notes - Sandhya Frost MD - 08/20/2023 9:00 AM EST Subjective Betty ROACH is a 48 y.o. female presenting for follow-up for ventral incisional herniaafter STSG over chronic midline wound performed by Dr. Ni on 05/14/23. She has healed nicely fromsurgery and graft has taken well. She has two small areas that have scabbed over and no longer draining. She presents today to discuss operative repair of her ventral incisional hernia. Patient notes a painful abdominal bulge in the lower midline area. Currently experiencing pain. Currently denies symptoms of bowel changes, constipation, nausea, vomiting, diarrhea, fevers, and chills. Prior Ventral hernia repair: No Recent testing: CT scan - 03/16/23 US - not performed I personally reviewed CT imaging, interpreting complete fascial disruption with loss of domain Outside medical records reviewed and commented on above. Body mass index is 27.25 kg/m??. Former smoker over 4 weeks Past Medical History: Diagnosis Date Alcohol abuse Alcohol withdrawal delirium (CMS/HCC) Anxiety 03/19/2018 COVID-19 09/23/2021 Dental disease top dentures/broken and missing bottom teeth Depression Essential hypertension 03/19/2018 Insomnia Spinal headache Past Surgical History: Procedure Laterality Date SECTION, LOW TRANSVERSE EXPLORATORY LAPAROTOMY 09/12/2021 evacuation of tubo-ovarian abscess Family History Problem Relation Name Age of Onset Cervical cancer Mother Hypertension Father Current Outpatient Medications Medication Sig Dispense Refill bacitracin 500 UNIT/GM ointment APPLY TO VASELINE GAUZE AND WOUNDS TWICE DAILY busPIRone (Buspar) 5 MG tablet docusate sodium (Colace) 100 MG capsule Take 1 capsule (100 mg) by mouth 1 (one) time each day if needed for constipation. 10 capsule 0 folic acid (Folvite) 1 MG tablet TAKE 1 TABLET BY MOUTH DAILY FOR SUPPLEMENT HYDROcodone-acetaminophen ([place]) 5-325 MG tablet Take 1 tablet (5 mg of hydrocodone) by mouth. hydrOXYzine pamoate (Vistaril) 50 MG capsule lisinopril-hydroCHLOROthiazide 10-12.5 MG tablet Take 1 tablet by mouth 1 (one) time each day. loratadine (Claritin) 10 MG tablet Take 1 tablet (10 mg) by mouth 1 (one) time each day. naltrexone (ReVia) 50 MG tablet Take 1 tablet (50 mg) by mouth every night. PARoxetine (Paxil) 40 MG tablet Take 1 tablet (40 mg) by mouth 1 (one) time each day in the morning. QUEtiapine (SEROquel) 100 MG tablet Take 1 tablet (100 mg) by mouth every night. rOPINIRole (Requip) 1 MG tablet thiamine (Vitamin B-1) 100 MG tablet zolpidem (Ambien) 10 MG tablet Take 1 tablet (10 mg) by mouth at night if needed. lisinopril 10 MG tablet Take 1 tablet (10 mg total) by mouth 1 (one) time each day. (Patient not taking: Reported on 08/20/2023) 30 tablet 11 No current facility-administered medications for this visit. Allergies Allergen Reactions Sulfadiazine Itching Review of Systems Objective Visit Vitals BP 131/85 (BP Location: Right arm, Patient Position: Sitting) Pulse 99 Temp 36.3 ??C (97.3 ??F) (Temporal) Ht 1.702 m (5' 7 ) Wt 78.9 kg (174 lb) BMI 27.25 kg/m?? Physical Exam Constitutional: well developed, well nourished, and in no acute distress Eyes: equal, round, and reactive Ears, Nose, Throat: normal atraumatic, no neck masses Respiratory: Normal Effort, Normal Rate Cardiac: Heart regular rate and rhythm Abdomen: Soft, non-tender; no organomegaly or masses. Skin: scars- midline Hernias: incisional hernia, with bowel involvement, centrally there is STSG with great incorporation. Pinch test. Superiorly the graft has some thickening but appears to be healing nicely. Genitourinary: not indicated Musculoskeletal: normal strength, tone, and muscle mass, no deformities Psychiatric: oriented to time, place and person, mood and affect are within normal limits Neurologic: motor intact and no focal deficits Skin: [place], warm, well perfused Assessment/Plan Problem List Items Addressed This Visit Digestive Incisional hernia with obstruction - Primary Relevant Orders Case Request Operating Room: COMPLEX REPAIR, HERNIA, VENTRAL (Completed) Patient is a 48 y.o. female presenting with ventral incisional hernia after exploratory laparotomy at [facility] August 2021. She is now s/p STSG to central portion of wound which has taken nicely. Superiorly, graft still thickened but overall passed pinch test. We have discussed factors impacting hernia outcomes including weight, smoking, infection, and bloodsugar control. We have discussed that hernias may recur in the patient's lifetime as hernias may recur with chronic cough, intra-abdominal pressure, obesity or heavy lifting/strenuous activity. Risks, benefits and alternatives including non-operative management were discussed. Operative risksincluding bleeding, infection, mesh infection or complication requiring future mesh removal, intestinal injury, need for intestinal resection, hernia recurrence, seroma, as well as anesthetic-related complications including deep venous thrombosis, pulmonary embolism, pneumonia, renal failure and were discussed. We discussed the options of synthetic versus biologic mesh. Patient information regarding the limitations and restrictions in the post- operative period as wellas the pre-operative preparation were provided to the patient and reviewed. All of the patient's questions were answered and informed consent was obtained. Arrangements are being made to perform an open ventral incisional hernia repair with component separation, with 30X30 PHASIX mesh implantation in the near future. ERAS yes PAT Required no Her chronic comorbid conditions that impact our treatment planning include: Hypertension (HTN) - well controlled, with a last BP of: BP Readings from Last 3 Encounters: 08/20/23 131/85 06/20/23 105/80 05/30/23 112/79 Cosigned by Isaac Boone MD at 08/21/2023 4:24 PM EST Associated attestation - Isaac Boone MD - 08/21/2023 4:24 PM EST I saw and evaluated the patient with the resident/fellow. I discussed the case with the resident/fellow and agree with the findings and plan as documented. documented in this encounter Plan of Treatment Not on file documented as of this encounter Visit Diagnoses Diagnosis Incisional hernia with obstruction- Primary documented in this encounter Additional Health Concerns Assessment Noted Time A fall risk assessment has been complete d for the patient 08/20/2023 9:29 AM EST A Body Mass Index follow-up plan has been documented for the patient 08/21/2023 4:24 PM EST documented as of this encounter Care Teams Surface Ship Usw Supervisor Relationship Specialty Start Date End Date Shantanu Landeros MD [address] [phone] PCP - General 06/12/22 documented as of this encounter
--- OUTSIDE RECORDS SUMMARY | 2024-08-04 20:02 | XMS_ITS | Encounter Summary ---
Author Organization Healthcare Address [address] [place] [address] Care Team Providers Care Route Delivery Service Driver Name Role Phone Shantanu Landeros MD Primary Care Provider [phone] Encounter Details Date Type Department Care Team (Latest Contact Info) Description 08/20/2023 Travel Social History Tobacco Use Types Packs/Day Years Used Date Smoking Tobacco: Former Cigarettes 1 32 Passive Smoke Exposure: Past Smokeless Tobacco: Never Alcohol Use Standard Drinks/Week Comments Not Currently 20 (1 standard drink = 0.6 oz pure alcohol) 3 airplane bottles/day on weekdays; 6 airplane bottles/day on weekends Social Connection and Isolation Panel [NHANES] A nswer Date Recorded Frequency of Communication with Friends and Fami ly Not on file 02/27/2021 Frequency of Social Gatherings with Friends and Family Not on file 02/27/2021 Attends Shinto Services Not on file 02/27 Active Member [...] Recorded Patient Health Questionnaire-2 Score 1 08/20/2023 [facility] - Occupational Stress [...] you got the money to buy more. Never true 02/28/20 21 Within the past 12 months, t he food you bought just didn't last and you didn't have money to get more. Never true 02/27/2021 Housing Stability Vital Sign Answer Stephen e Recorded In the last 12 months, was t here a time when you were not able to pay the mortgage or rent on time? No 02/27/2021 Number of Places Lived in the Last Year Not on f ile 02/27/2021 In the last 12 months, was t here a time when you did not have a steady place to sleep or slept in a alf (including now)? 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
--- OUTSIDE RECORDS SUMMARY | 2024-08-04 20:02 | XMS_ITS | Encounter Summary ---
Author Organization Healthcare Address [address] [id number] Care Team Providers Care Transfer And Line Up Worker Name Role Phone Shantanu Landeros MD Primary Care Provider [phone] Reason for Visit * Reason Onset Date Comments [facility] Same Day Appt/Overbook Request 10/13/2023 Encounter Details Date Type Department Care Team (Late st Contact Info) Description 10/13/2023 Telephone [facility] General Surgery [address], [address] [place] [address] Isaac Boone MD [address] [place] [phone] [facility] Same Day Appt/Overbook Request Social History Tobacco Use Types Packs/Day Years [...] and Family Not on file 02/27/2021 Attends [employer]ism Services Not on file 02/27 Active Member [...] Recorded Patient Health Questionnaire-2 Score 1 08/20/2023 [facility] - Occupational Stress Questionnaire Answer Date [...] place to sleep or slept in a intermediate (including now)? 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 Pt double checking about amt of output from each of 2 drains but believes it to be < 30mL/24h x 2 days. Appt scheduled for tomorrow afternoon at 3:30 per pt request as her ride cannot get here until 3:30. She will call back if output not down sufficiently to have drains pulled. * Telephone Encounter - Danilo Garcia - 10/13/2023 4:19 PM EST Same Day Appt/Overbook Request Reason for Call: patient is requesting an appt later in day 3:30 or later to have drain tubes removed she can not make it any earlier due to transportation issues Best contact number: Other: [phone] Optimal time of day to reach caller: ANYTIME Additional comments/information from caller: None Note: Please do not reply to this message. Follow-up communication and further actions as a result of this message need to be communicated with the patient directly, if the patient is not active onMyChart. If the patient is active on MyChart, they will receive notification of the communication/outcome via MyChart. documented in this encounter Plan of Treatment [...] documented as of this encounter Care Teams Transfer And Line Up Worker Relationship Specialty Start Date End Date Shantanu Landeros MD [address] [place] [address] PCP - General 06/12/22 documented as of this encounter
--- OUTSIDE RECORDS SUMMARY | 2024-08-04 20:02 | XMS_ITS | Encounter Summary ---
Author Organization Healthcare Address [facility] [place] [address] Care Team Providers Care Seismometer Operator Name Role Phone Shantanu Landeros MD Primary Care Provider [phone] Encounter Details Date Type Department Care Team (Late st Contact Info) Description 10/07/2023 Orders Only External Location [address] [place] [address] Provider, External Social History Tobacco Use Types Packs/Day Years [...] and Family Not on file 02/27/2021 Attends [employer] Services Not on file 02/27 Active Member [...] Recorded Patient Health Questionnaire-2 Score 1 08/20/2023 [facility] - [...] place to sleep or slept in a residential (including now)? 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 on file Not on f ile documented as of this encounter Plan of Treatment Not on file documented as of this encounter Procedures Procedure Name Priority Date/Time Associated Diagnosis Comments POC ULTRASOUND 10/07/2023 documented in this encounter Results * POC Imaging (10/07/2023) Anatomical Region Laterality Modality Pelvis Other 10/07/2023 us External Provider IMG POINT OF CARE ULTRASOUND F inal Result documented in this encounter Visit Diagnoses Not on filedocumented in this encounter Additional Health Concerns Assessment Noted Time A fall risk assessment has been complete d for the patient 08/20/2023 9:29 AM EST A Body Mass Index follow-up plan has been documented for the patient 10/13/2023 9:20 AM EST documented as of this encounter Care Teams Seismometer Operator Relationship Specialty Start Date End Date Shantanu Landeros MD [address] [id number] PCP - General 06/12/22 documented as of this encounter
--- OUTSIDE RECORDS SUMMARY | 2024-08-04 20:02 | XMS_ITS | Encounter Summary ---
Author Organization Healthcare Address [address] [place] [address] Care Team Providers Care Dragger Name Role Phone Shantanu Landeros MD Primary Care Provider [phone] Encounter Details Date Type Department Care Team (Latest Contact Info) Description 10/17/2023 Travel Social History Tobacco Use Types Packs/Day [...] and Family Not on file 02/27/2021 Attends [employer] Services Not on file 02/27 Active Member [...] Recorded Patient Health Questionnaire-2 Score 1 08/20/2023 [facility] [place] [facility] Occupat ional Health - Occupational Stress [...] place to sleep or slept in a usp (including now)? 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
--- OUTSIDE RECORDS SUMMARY | 2024-08-04 20:02 | XMS_ITS | Encounter Summary ---
Author Organization Healthcare Address [address] [id number] Care Team Providers Care Leak Inspector Name Role Phone Shantanu Landeros MD Primary Care Provider [phone] Reason for Visit * Reason Comments Post-op Encounter Details Date Type Department Care Team (Late st Contact Info) Description 10/17/2023 3:30 PM EST Office Visit [facility] [address] [place] [address] Sarah Lacy L, CHAR CONVEYOR TENDER [address] [place] [address] S/P repair of ventral hernia (Primary Dx) Social History Tobacco Use Types [...] Recorded Patient Health Questionnaire-2 Score 1 08/20/2023 [facility] - Occupational Stress Questionnaire Answer Date [...] place to sleep or slept in a fdc (including now)? 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 on file Not on f ile documented as of this encounter Last Filed Vital Signs Vital Sign Reading Time Taken Comments Blood Pressure 116/83 10/17/2023 3:54 PM EST Pulse 109 10/17/2023 3:54 PM EST Temperature 36.3 ??C (97.3 ??F) 10/17/2023 3:54 PM ES T Respiratory Rate 16 10/17/2023 3:54 PM EST Oxygen Saturation - - Inhaled Oxygen Concentration - - Weight 76.8 kg (169 lb 4.8 oz) 10/17/2023 3:54 P M EST Height 170.2 cm (5' 7.01 ) 10/17/2023 3:54 PM ES T Body Mass Index 26.51 10/17/2023 3:54 PM EST documented in this encounter Miscellaneous Notes * Progress Notes - Sarah Lacy, KHUSHI - 10/17/2023 3:30 PM EST Subjective Betty ROACH is a 48 y.o. female presenting 10 days post op from repair incisional hernia with chronic incarceration and loss of domain; Excision of split thickness skin graft of anteriorabdominal wall; Bilateral transversus abdominis releases with rectus abd; dvancment flaps; Implant phasix; Excision of redundant soft tissue of anterior abdominal wall - vertical panniculectomy with Dr. Boone on 10/07/2022 She reports she is recovering fairly well after surgery. She denies nausea, vomiting, chills, fever, and wound drainage. She does endorse significant pain associated with the midline incision and theright SID drain. She rates the pain at 8/10 and describes it as aching and constant. Reports she hashad less than 25 cc of drainage from both SID drains over the last 3 days. Patient denies nausea, vomiting, chills, fevers, and drainage from wounds. Patient reports pain scale of 8/10, reports quality when occurs as aching, in a constant nature. Vital signs and medications were reviewed. Current Outpatient Medications Medication Sig Dispense Refill cyclobenzaprine (Flexeril) 5 MG tablet Take 1 tablet (5 mg) by mouth 3 (three) times a day for 7 days. 21 tablet 0 HYDROcodone-acetaminophen (Camilla) 10-325 MG tablet Take 1 tablet (10 mg of hydrocodone) by mouth every 8 (eight) hours if needed for severe pain. 15 tablet 0 lidocaine (Lidoderm) 5 % patch Apply 1 patch topically 1 (one) time each day at the same time over 12 hours. Remove & discard patch within 12 hours or as directed by MD. 5 patch 0 naloxone (Kloxxado) 8 mg/0.1 mL nasal spray 1. Give 1 spray in nostril for no/slow breathing or cannot wake after opioid use 2. Call 911 3. Repeat in other nostril if symptoms continue 1 each 0 rOPINIRole (Requip) 1 MG tablet Take 1 tablet (1 mg) by mouth at night if needed. senna-docusate (Shira-Colace) 8.6-50 MG tablet Take 1 tablet by mouth 2 (two) times a day. 60 tablet0 zolpidem (Ambien) 10 MG tablet Take 1 tablet (10 mg) by mouth at night if needed for sleep. gabapentin (Neurontin) 300 MG capsule Take 1 capsule (300 mg) by mouth 3 (three) times a day. 30 capsule 0 methocarbamol (Robaxin) 500 MG tablet Take 1 tablet (500 mg) by mouth 3 (three) times a day for 15 days. 45 tablet 0 No current facility-administered medications for this visit. Allergies Allergen Reactions Sulfadiazine Itching Objective Physical Exam Visit Vitals BP 116/83 (BP Location: Right arm, Patient Position: Sitting) Pulse 109 Temp 36.3 ??C (97.3 ??F) (Temporal) Ht 1.702 m (5' 7.01 ) Wt 76.8 kg (169 lb 4.8 oz) BMI 26.51 kg/m?? Constitutional: well developed, well nourished, and in no acute distress Psychiatric: oriented to time, place and person, mood and affect are within normal limits Incision midline; healing well, repair solid and intact, and no erythema. Drain 2 SID drains removed without complication. Assessment/Plan Problem List Items Addressed This Visit Other S/P repair of ventral hernia - Primary 48 y.o., s/p repair incisional hernia with chronic incarceration and loss of domain; Excision of split thickness skin graft of anterior abdominal wall; Bilateral transversus abdominis releases with rectus abd; dvancment flaps; Implant phasix; Excision of redundant soft tissue of anterior abdominal wall - vertical panniculectomy with a(n) excellent outcome. Gabapentin 100 mg three times a day was prescribed as well as methocarbamol 500 mg three times a day p.r.n. for pain control Follow up - 1 month with Pt Instructions: No lifting more than 10 pounds for 6 weeks from time of surgery. Continue to wear binder for 2-3 weeks post-op Tobacco avoidance for 3 months from time of surgery. Call for any changes to your incision including redness, swelling, drainage or fevers greater than 100.4 you experience. documented in this encounter Plan of Treatment Not on file documented as of this encounter Visit Diagnoses Diagnosis S/P repair of ventral hernia- Primary Other postprocedural status documented in this encounter Additional Health Concerns Assessment Noted Time A fall risk assessment has been complete d for the patient 10/17/2023 3:54 PM EST A Body Mass Index follow-up plan has been documented for the patient 10/17/2023 4:15 PM EST documented as of this encounter Care Teams Leak Inspector Relationship Specialty Start Date End Date Shantanu Landeros MD [address] [place] [address] PCP - General 06/12/22 documented as of this encounter
--- OUTSIDE RECORDS SUMMARY | 2024-08-04 20:02 | XMS_ITS | Encounter Summary ---
Author Organization Healthcare Address [address] [id number] Care Team Providers Care Radial Drill Press Operator Name Role Phone Shantanu Landeros MD Primary Care Provider [phone] Reason for Visit * Reason Onset Date Comments Med Refill 10/23/2023 Encounter Details Date Type Department Care Team (Late st Contact Info) Description 10/23/2023 [facility] [address] [place] [address] Sarah Lacy L, BEAM WORKER [address] [place] [address] Social History Tobacco Use Types [...] and Family Not on file 02/27/2021 Attends [employer] Services Not on file 02/27 Active Member [...] Recorded Patient Health Questionnaire-2 Score 1 08/20/2023 [facility] - Occupational [...] 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
--- OUTSIDE RECORDS SUMMARY | 2024-08-04 20:02 | XMS_ITS | Encounter Summary ---
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
--- OUTSIDE RECORDS SUMMARY | 2024-08-04 20:02 | XMS_ITS | Encounter Summary ---
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 equation that does not use a race coefficient. Blood Venous blood specimen / Unknown Venipuncture / Unknown 10/09/2023 3:33 AM EST 10/09/2023 3:49 AM EST us sIaac Boone MD LAB BLOOD ORDERABLES Final Resul t [facility] [address] [place] [id number] * (ABNORMAL) CBC W/O Differential (10/09/2023 3:33 AM EST) WBC Count 10.34(H) 3.70 - 10.30 10*3/uL LAB HEMATOLOGY METHOD 10/09/2023 4:00 AM EST [facility] RBC Count 2.98(L) 3.90 - 5.20 10*6/uL LAB HEMATOLOGY METHOD 10/09/2023 4:00 AM EST [facility] HGB 6.3(LL) 11.2 - 15.7 g/dL LAB HEMATOLOGY METHOD 10/09/2023 4:00 AM EST [facility] HCT 23.0(L) 34.0 - 45.0 % LAB HEMATOLOGY METHOD 10/09/2023 4:00 AM EST [facility] Platelet Count 232 155 - 369 10*3/uL LAB HEMATOLOGY METHOD 10/09/2023 4:00 AM EST [facility] MCV 77(L) 79 - 98 fL LAB HEMATOLOGY METHOD 10/09/2023 4:00 AM EST [facility] MCH 21.1(L) 26.0 - 32.0 pg LAB HEMATOLOGY METHOD 10/09/2023 4:00 AM EST [facility] MCHC 27.4(L) 30.7 - 35.5 g/dL LAB HEMATOLOGY METHOD 10/09/2023 4:00 AM EST [facility] RDW 17.6(H) 11.5 - 14.5 % LAB HEMATOLOGY METHOD 10/09/2023 4:00 AM EST [facility] MPV 10.2 8.8 - 12.5 fL LAB HEMATOLOGY METHOD 10/09/2023 4:00 AM EST [facility] nRBC 0.0 <=0.0 per 100 WBCs LAB HEMATOLOGY METHOD 10/09/2023 4:00 AM EST [facility] Blood Venous blood specimen / Unknown Venipuncture / Unknown 10/09/2023 3:33 AM EST 10/09/2023 3:49 AM EST Isaac Boone MD LAB BLOOD ORDERABLES Final Resul t [facility] [address] [place] [address] * ECG Adult (10/08/2023 11:07 AM EST) EKG DIAGNOSIS CLASS Borderline Abnormal MUSE ECG Ventricular Rate 103 BPM MUSE ECG Atrial Rate 103 BPM MUSE ECG WA Interval 136 ms MUSE ECG QRSD Interval 74 ms MUSE ECG QT Interval 326 ms MUSE ECG QTC Interval 427 ms MUSE ECG P [place] 60 degrees MUSE ECG R [place] 26 degrees MUSE ECG T Wave [place] 30 degrees MUSE ECG Diagnosis Sinus tachycardia MUSE ECG Diagnosis Otherwise normal ECG MUSE ECG Diagnosis Questionable change in MUSE ECG Diagnosis anterior R wave progression MUSE ECG Diagnosis Confirmed by Christian Ybarra ([id number]) on 10/08/2023 11:13:26 AM MUSE ECG 10/08/2023 11:0 7 AM EST 10/08/2023 11:13 AM EST Isaac Boone MD ECG ORDERABLES Final Result MUSE ECG * XR Abdomen 1 View [...] pneumothorax. Cardiomediastinal silhouette is stable. Procedure Note Aleaxndru Powell MD - 10/08/2023 CLINICAL INDICATION: chest [...] - 4.5 mg/dL 10/08/2023 3:23 AM EST [facility] Blood Venous blood specimen / Unknown Venipuncture / Unknown 10/08/2023 2:35 AM EST 10/08/2023 2:54 AM EST Isaac Boone MD LAB BLOOD ORDERABLES Final Resul t [facility] [address] [place] [id number] * (ABNORMAL) Magnesium, Plasma (10/08/2023 2:35 AM EST) Magnesium, Plasma 1.8(L) 1.9 - 2.4 mg/dL 10/08/2023 3:23 AM EST [facility] Blood Venous blood specimen / Unknown Venipuncture / Unknown 10/08/2023 2:35 AM EST 10/08/2023 2:54 AM EST us Isaac Boone MD LAB BLOOD ORDERABLES Final Resul t [facility] [address] [place] [address] * (ABNORMAL) Basic metabolic panel (10/08/2023 2:35 AM EST) Glucose, Plasma 131(H) 74 - 99 mg/dL 10/08/2023 3:23 AM EST [facility] BUN, Plasma 13 7 - 21 mg/dL 10/08/2023 3:23 AM EST [facility] Creatinine, Plasma 0.75 0.60 - 1.10 mg/dL 10/08/2023 3:23 AM EST [facility] BUN/Creatinine Ratio 17 10/08/2023 3:23 AM EST [facility] Sodium, Plasma 133(L) 136 - 145 mmol/L 10/08/2023 3:23 AM EST [facility] Potassium, Plasma 4.5 3.7 - 4.8 mmol/L 10/08/2023 3:23 AM EST [facility] Chloride, Plasma 104 97 - 107 mmol/L 10/08/2023 3:23 AM EST [facility] CO2, Plasma 21(L) 22 - 29 mmol/L 10/08/2023 3:23 AM EST [facility] Anion Gap 8 6 - 16 mmol/L 10/08/2023 3:23 AM EST [facility] Total Calcium, Plasma 8.6(L) 8.9 - 10.2 mg/dL 10/08/2023 3:23 AM EST [facility] eGFRcr 97.7 mL/min/1.7 3m*2 10/08/2023 3:23 AM EST [facility] Comment:Reported eGFRcr in m L/min/1.73m2 is based the CKD-EPI 2020 equation that does not use a race coefficient. Blood Venous blood specimen / Unknown Venipuncture / Unknown 10/08/2023 2:35 AM EST 10/08/2023 2:54 AM EST us Isaac Boone MD LAB BLOOD ORDERABLES Final Resul t [facility] [address] [place] [address] * (ABNORMAL) CBC W/O Differential (10/08/2023 2:35 AM EST) WBC Count 18.35(H) 3.70 - 10.30 10*3/uL LAB HEMATOLOGY METHOD 10/08/2023 3:02 AM EST [facility] RBC Count 3.61(L) 3.90 - 5.20 10*6/uL LAB HEMATOLOGY METHOD 10/08/2023 3:02 AM EST [facility] HGB 7.7(L) 11.2 - 15.7 g/dL LAB HEMATOLOGY METHOD 10/08/2023 3:02 AM EST [facility] HCT 27.5(L) 34.0 - 45.0 % LAB HEMATOLOGY METHOD 10/08/2023 3:02 AM EST [facility] Platelet Count 269 155 - 369 10*3/uL LAB HEMATOLOGY METHOD 10/08/2023 3:02 AM EST [facility] MCV 76(L) 79 - 98 fL LAB HEMATOLOGY METHOD 10/08/2023 3:02 AM EST [facility] MCH 21.3(L) 26.0 - 32.0 pg LAB HEMATOLOGY METHOD 10/08/2023 3:02 AM EST [facility] MCHC 28.0(L) 30.7 - 35.5 g/dL LAB HEMATOLOGY METHOD 10/08/2023 3:02 AM EST [facility] RDW 16.8(H) 11.5 - 14.5 % LAB HEMATOLOGY METHOD 10/08/2023 3:02 AM EST [facility] MPV 10.3 8.8 - 12.5 fL LAB HEMATOLOGY METHOD 10/08/2023 3:02 AM EST [facility] nRBC 0.0 <=0.0 per 100 WBCs LAB HEMATOLOGY METHOD 10/08/2023 3:02 AM EST [facility] Blood Venous blood specimen / Unknown Venipuncture / Unknown 10/08/2023 2:35 AM EST 10/08/2023 2:54 AM EST us Isaac Boone MD LAB BLOOD ORDERABLES Final Resul t [facility] [address] [place] [address] * Surgical Pathology Exam (10/07/2023 12:36 PM EST) Case Report Surgical Pathology ?Case: [id number] ? Authorizing Provider: ??Isaac Boone MD ? Collected: ? 10/07/2023 1236 ? Ordering Location: ? [facility] Operating [facility] ? Received: ?10/07/2023 1424 ? Pathologist: ? Kev Tipton MD ? Specimen: ?Abdominal Wall, ABDOMINAL WALL SKIN ??GRAFT TISSUE ? 10/09/2023 11:38 AM EST [facility] Final Diagnosis A. ABDOMINAL WALL SKIN, GRAFT TISSUE EXCISION: - BENIGN SKIN AND SUBCUTANEOUS TISSUE 10/09/2023 11:38 AM EST [facility] Clinical Information Incisional hernia with obstruction [K43.0] 10/09/2023 11:38 AM EST [facility] Gross Description A. ABDOMINAL WALL SKIN GRAFT TISSUE The specimen is received in formalin labeled ? abdominal wall skin graft tissue? . Consists of a 26.0 x 11.0 x 1.0 cm irregular portion of pink-fink skin and adipose tissue. The skin surface is markedly wrinkled and unremarkable. The specimen is serially sectioned to reveal a pink-fink to yellow, dense fibrous-adipose tissue. Post Anesthesia Nurse sections are submitted into cassettes A1-A2 as follows: A1: Sectioned to include skin A2: Dense fibrous-adipose tissue Felibertoaquilesallen Martinez Cold Time: 1m 10/09/2023 11:38 AM EST [facility] Note: A resident was involved in the service. I attest I examined the relevant preparations for the specimens and confirmed the diagnosis or interpretation. 10/09/2023 11:38 AM EST [facility] Tissue Abdominal wall / Unknown 10/07/2023 12:36 PM EST 10/07/2023 2:24 PM EST Comment:Pre-op diagnosis: Incisional hernia with obstruction [K43.0] Isaac Boone MD LAB PATHOLOGY ORDERABLES Final R esult [facility] [address] [place] [address] * POCT Urine (10/07/2023 9:16 AM EST) [...] URINE [id number] KIT EXPIRATION DATE, PREG URINE 1,259,461 Urine Urine specimen obtained by clean catch procedure / Unknown 10/07/2023 9:16 AM EST us Adalberto Mckeon MD POINT OF CARE TEST ENTER/E DIT ORDERABLES Final Result documented in this encounter Visit Diagnoses Diagnosis Incisional hernia with obstruction- Primary Incisional hernia with obstruction Status post split thickness skin graft Incarcerated incisional hernia Incisional hernia with obstruction Incisional hernia with obstruction Status post split thickness skin graft documented in this encounter Admitting Diagnoses Diagnosis Incisional hernia with obstruction Incarcerated incisional hernia Incisional hernia with obstruction Status post split thickness skin graft documented in this encounter Administered Medications Inactive Administered Medications - up to 3 most recent administrations Medication Order MAR Action Action Date Dose Rate Site acetaminophen (Tylenol) tablet 1,000 mg 1,000 mg, Oral, Every 6 hours scheduled, First dose (after last modification) on Fri10/12/23 at 1200, Until Discontinued, Routine, Phase II/On Unit Given 10/13/2023 12:01 PM EST 1,000 mg Given 10/12/2023 11:58 PM EST 1,000 mg Given 10/12/2023 5:40 PM EST 1,000 mg calcium carbonate (Tums) chewable tablet 1,000 mg 1,000 mg, Oral, 4 times daily PRN, Starting on Fri10/08/23 at 0852, Until Fri10/13/23 at 1848, Routine, indigestion, heartburn Given 10/08/2023 9:09 AM EST 1,0 00 mg cyclobenzaprine (Flexeril) tablet 5 mg 5 mg, Oral, 3 times daily, First dose on Fri10/07/23 at 1600, Until Discontinued, Routine, Phase II/On Unit Given 10/13/2023 3:09 PM EST 5 mg Given 10/13/2023 8:10 AM EST 5 mg Given 10/12/2023 8:30 PM EST 5 mg diphenhydrAMINE (Benadryl) tablet 50 mg 50 mg, Oral, Every 6 hours PRN, Starting on Fri10/10/23 at 1114, Until Fri10/13/23 at 1848, Routine, itching Given 10/10/2023 12:02 PM EST 50 mg ferrous sulfate EC tablet 324 mg 324 [...] Given 10/12/2023 8:30 PM EST 100 mg ibuprofen tablet 400 mg 400 mg, Oral, Every 6 hours PRN, Starting on Fri10/12/23 at 0813, Until Fri10/13/23 at 1848, Routine, Phase II/On Unit, mild pain, fever, moderate pain Given 10/12/2023 5:40 PM EST 400 mg Given 10/12/2023 9:20 AM EST 400 mg lidocaine (Lidoderm) 5 % patch 2 patch 2 patch, Apply externally, Every 24 hours, First dose on Fri10/12/23 at 0930, Until Discontinued, Administer over 12 Hours, Routine Medication Applied 10/13/2023 8:11 AM EST 2 patches Abdominal Tissue Medication Applied 10/12/2023 9:19 AM EST 2 patches Abdominal Tissue ondansetron ODT (Zofran-ODT) disintegrating tablet 4 mg [...] Phase II/On Unit, moderate pain pantoprazole (Protonix) injection 40 mg 40 mg, Intravenous, Daily, First dose on Fri10/08/23 at 1130, Until Discontinued, Routine Given 10/13/2023 8:10 AM EST 40 mg Given 10/12/2023 9:20 AM EST 40 mg Given 10/11/2023 8:57 AM EST 40 mg rOPINIRole (Requip) tablet 1 mg 1 mg, Oral, Nightly, First dose on Fri10/07/23 at 2100, Until Discontinued, Routine Given 10/12/2023 8:30 PM EST 1 mg Given 10/11/2023 8:15 PM EST 1 mg Given 10/10/2023 8:51 PM EST 1 mg senna-docusate (Azam-Colace) 8.6-50 MG per tablet 1 tablet 1 tablet, Oral, 2 times daily, First dose on Fri10/08/23 at 0900, Until Discontinued, Routine, Phase II/On Unit Given 10/13/2023 8:11 AM EST 1 tablet Given 10/12/2023 8:30 PM EST 1 tablet Given 10/12/2023 9:20 AM EST 1 tablet zolpidem (Ambien) tablet 10 mg 10 mg, [...] Reason: Patient/family refused)1740 (Given - Provider: Chelsea Booth RN)2358 (Given - Provider: Barry Alves II, RN) 0522 (Not Given - Provider: Barry Alves [...] RN)2014 (Given - Provider: Yanni Subramanian RN) 09 (Given - Provider: Chelsea Booth RN)153 (Given - Provider: Chelsea Booth RN)2029 (Given - Provider: Barry Alves II, JOSE) 0810 (Given - Provider: Rashida Sharpe)1509 (Given [...] RN)2014 (Given - Provider: Yanni Subramanian RN) 09 (Given - Provider: Chelsea Booth RN)153 (Given - Provider: Chelsea Booth RN)2030 (Given - Provider: Barry Alves II, RN) 0811 (Given - Provider: Rashida Sharpe)1510 (Given - Provider: Rashida Sharpe) lidocaine (Lidoderm) 5 % patch 2 patch 2 patch, Apply externally, Every 24 hours, First dose on Fri10/12/23 at 0930, Until Discontinued, Administer over 12 Hours, Routine 09 (Medication Applied - Provider: Chelsea Booth RN)211 (Medication Removed - Provider: Barry Alves II, RN) 0811 (Medication Applied - Provider: Rashida Sharpe)0830 (Canceled Entry - Provider: Rashida Sharpe)0832 (Medication Removed - Provider: Rashida Sharpe) magnesium oxide (Mag-Ox) tablet 400 mg (COMPLETED) 400 mg, Oral, Once, 1 dose, On Fri10/12/23 at 0800, Routine 0920 (Given - Provider: Chelsea Booth RN - Comment: [facility]) pantoprazole (Protonix) injection 40 mg 40 mg, Intravenous, Daily, First dose on Fri10/08/23 at 1130, Until Discontinued, Routine 0857 (Given - Provider: Chelsea Booth RN) 09 [...] 6 hours PRN, Starting on 10/12/23 at 0813, Until 10/13/23 at 1848, Routine, Phase II/On Unit, mild pain, fever, moderate pain 0920 (Given - Provider: Chelsea Booth RN)1740 (Given - Provider: Chelsea Booth RN) ibuprofen tablet 600 mg (CANCELED) 600 mg, Oral, Every 6 hours PRN, Starting on Hans[place] 10/09/23 at 0000, Until 10/12/23 at 0816, Routine, Phase II/On Unit, mild pain, fever 0858 (Given - Provider: Chelsea Booth RN) ondansetron ODT (Zofran-ODT) disintegrating tablet 4 mg 4 mg, Oral, Every 6 hours PRN, Starting on Fri10/10/23 at 1115, Until 10/13/23 at 1848, Routine, nausea, vomiting oxyCODONE (Roxicodone) immediate release tablet 10 mg (CANCELED) 10 mg, Oral, Every 6 hours PRN, Starting on Fri10/10/23 at 0649, Until 10/12/23 at 0816, Routine, severe pain 0632 (Given [...] RN)1935 (Given - Provider: Barry Alves II, RN) 0118 (Given - Provider: Valarie Pérez RN)0811 (Given - Provider: Rashida Sharpe)1343 (Given - Provider: Rashida Sharpe) oxyCODONE (Roxicodone) immediate release tablet 5 mg(Linked Group 1) 5 mg, Oral, Every 6 hours PRN, Starting on 10/12/23 at 0814, Until 10/13/23 at 1848, Routine, Phase II/On Unit, moderate pain 1338 (See Alternative - Provider: Chelsea Booth, JOSE)1935 (See Alternative - Provider: Barry Alves II, JOSE) 0118 (See Alternative - Provider: Valarie Pérez, JOSE)0811 (See Alternative - Provider: Rashida Sharpe)1343 (See Alternative - Provider: Rashida Sharpe) zolpidem (Ambien) tablet 10 mg 10 mg, Oral, Nightly PRN, Starting on Fri10/10/23 at 2100, Until 10/13/23 at 1848, sleep 2318 (Given - Provider: [...] PRN, Starting on 10/12/23 at 0814, Until Fri10/13/23 at 1848, Routine, Phase II/On Unit, severe pain documented in this encounter Additional Health Concerns Assessment Noted Time A fall risk assessment has been complete d for the patient 08/20/2023 9:29 AM EST A Body Mass Index follow-up plan has been documented for the patient 10/13/2023 9:20 AM EST documented as of this encounter 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
--- OUTSIDE RECORDS SUMMARY | 2024-08-04 20:02 | XMS_ITS | Encounter Summary ---
Author Organization Healthcare Address [address] [id number] Care Team Providers Care Usps Letter Carrier Name Role Phone Shantanu Landeros MD Primary Care Provider [phone] Reason for Visit * Auth/Cert (Routine) Specialty Diagnoses / Procedures Referred By Contac t Referred To Contact Diagnoses Incisional hernia with obstruction Incisional hernia with obstruction [K43.0] Procedures DE RPR AA HERNIA 1ST > 10 CM NCRC8/STRANGULATED DE MUSCLE-SKIN FLAP,TRUNK COMPLEX REPAIR, HERNIA, VENTRAL Isaac Boone MD [address] [facility] [address] [place] [address] Phone: tel: fax: [facility] Operating Room [address] [place] [address] Phone: tel: Referral ID Status Reason Start Date Expiration Date Visits Re quested Visits Authorized [id number] 1 1 Encounter Details Date Type Department Care Team (Late st Contact Info) Description 10/07/2023 10:20 AM EST Anesthesia Event [facility] Operating Room [address] [place] [address] Adalberto Mckeon MD [address] [place] [address] Anesthesia Record Procedure Summary Procedure Name Responsible Anesthesiologist Anesthesia Start Time Anesthesia Stop Time COMPLEX VENTRAL HERNIA REPAIR WITH MESH, BILATERAL TRANSVERSES ABDOMINAL RELEASE, REMOVAL OF SKIN GRAFT (Abdomen) Adalberto Mckeon MD 10/07/23 1020 10/07/23 1421 Events Date Time Event Comment 10/07/2023 0839 1020 An Start 1020 An Start Data 1020 In Room 1025 An Induction The patient was reevaluated immediately before moderate or deep sedation use and before anesthesia induction. 1027 An Intubation 1029 Anesthesia Ready 1031 Block Placed 1047 Proc Start 1408 Proc Fin 1410 An Extubation 1414 an stop data 1415 Out of Room 1421 Handoff to Receiving I compl eted my handoff to the receiving clinician during which we: 1. Identified the patient 2. Identified the responsible provider 3. Reviewed the pertinent medical history 4. Discussed the surgical course 5. Reviewed intra-op anesthesia management and issues during anesthesia 6. Set expectations for post-procedure period 7. Allowed opportunity for questions and acknowledgement of understanding. 1421 An Stop Meds Name Total midazolam (Versed) injection 1 mg/mL 2 m g fentaNYL (Sublimaze) injection 50 mcg/mL 100 mcg propofol (Diprivan) injection 10 mg/mL 2 00 mg rocuronium (ZeMuron) injection 10 mg/mL 130 mg dexamethasone (Decadron) injection 4 mg/ mL 8 mg HYDROmorphone PF (Dilaudid) injection 1 mg/mL 1 mg phenylephrine (Reuben-Synephrine) prefilled syringe 1 mg/10 mL 200 mcg ondansetron (Zofran) injection 2 mg/mL 4 mg sugammadex (Bridion) injection 100 mg/mL 200 mg ceFAZolin (Ancef) injection 2 g 2 g 0.25 % bupivacaine PF (Marcaine) 60 mL dexmedetomidine (Precedex) injection 100 mcg/mL 20 mcg lactated Ringer's infusion 2,000 mL * Agents Name O2 N2O Air Sevoflurane Inspired Sevoflurane N2O Inspired N2O * Blood No blood administrations on file. Lines, Drains, and Airways Type Details Placement Removal Wound 05/14/23; 1004; N; Y es; Incision; Abdomen; Upper, Anterior 05/14/23 1004 by Adrian Tucker RN Wound 05/14/23; 1004; N; Y es; Incision; Leg; Anterior, Right, Upper 05/14/23 1004 by Adrian Tucker RN Wound 10/07/23; 1056; N; Y es; Incision; Abdomen; Anterior, Mid 10/07/23 1056 by Nevin Gay RN Closed/Suction Drain 10/07/23; 1309; No; 10/07/23; Yes; 1; LUQ; Bulb; 19 Fr. 10/07/23 1309 by Nevin Gay RN Closed/Suction Drain 10/07/23; 1310; No; 10/07/23; Yes; 2; RUQ; Bulb; 19 Fr. 10/07/23 1310 by Nevin Gay RN Peripheral IV Placement Date: 09/22 03/15; Placement Time: 0833; Catheter Size: 20 G; Orientation: Right; Location: Antecubital; Site Prep: Chlorhexidine ; Technique: Anatomical landmarks; Inserted by: gabrielle Claros RN; Insertion Attempts: 2; Patient Tolerance: Tolerated well; Removal Date: 10/09/23; Removal Time: 0000; Removal Reason: Catheter damage 10/07/23 0833 by Beatrice Alonzo RN 10/09/23 0000 by Mallory Connell RN ETT Placement Date: 09/22 03/15; Placement Time: 1027 (created via procedure documentation); Mask Ventilation: 1; Technique: Direct laryngoscopy; Type: ETT - single; Single Lumen Tube Size: 7 mm; Cuffed: Yes; Laryngoscope: Durán; Blade Size: 2; Location: Oral; Grade View: Grade I; Insertion Attempts: 1; Placement Verification: Auscultation, Capnometry; Airway Comments: Atraumatic. No change to dentition. ; Placed by: KALI; Removal Date: 10/07/23; Removal Time: 1410 10/07/23 1027 by Delgado Rodriguez CRNA 10/07/23 1410 by Delgado Rodriguez CRNA Urethral Catheter Placement Date: 09/22 03/15; Placement Time: 1029; Inserted by: Nevin Gay; Type: Single lumen; Size: 16 Fr.; Balloon Size: 10 mL; Urine Returned: Yes (urine return noted prior to balloon inflation); Removal Date: 10/08/23; Removal Time: 0654; Removal Reason: Per order 10/07/23 1029 by Nevni Gay RN 10/08/23 0654 by Moraima Arshad RN documented in this encounter Social History Tobacco [...] and Family Not on file 02/27/2021 Attends [employer] Not on file 02/27 Active Member [...] Recorded Patient Health Questionnaire-2 Score 1 08/20/2023 [facility] - Occupational Stress [...] place to sleep or slept in a senior care (including now)? 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 Anesthesia Post Evaluation Patient location during evaluation: PACU Patient participation: complete - patient cannot participate Level of consciousness: sedated Pain management: adequate (pain score 0-3) Airway patency: natural airway Cardiovascular status: acceptable Respiratory status: spontaneous ventilation, oral airway and face mask Hydration status: stable No notable events documented. * Anesthesia Procedure Notes - Rosalie Goodwin DO - 10/07/2023 10:44 AM EST Associated Order(s): Peripheral Block - ANESTHESIA Peripheral Block - ANESTHESIA Patient location during procedure: OR Start time: 10/07/2023 10:31 AM Reason for block: post-op pain management Block is at surgeon's request Staffing Performed: Resident Anesthesiologist: Adalberto Mckeon MD Resident: Rosalie Goodwin DO Preanesthetic Checklist Completed: patient identified, IV checked, site marked, risks and benefits discussed, surgical consent, monitors and equipment checked, pre-op evaluation and timeout performed Peripheral Block Patient position: supine Prep: ChloraPrep Patient monitoring: continuous pulse ox, heart rate and cardiac cath technologist Block type: TAP Anesthesia laterality: Bilateral. Injection technique: single-shot Guidance: ultrasound guided Ultrasound used for needle placement AND ultrasound image retained Needle Needle type: pencil-tip Needle gauge: 27 G Needle length: 10 cm Needle localization: anatomical landmarks and ultrasound guidance Medications Administered 0.25 % bupivacaine PF (Marcaine) - Injection 60 mL - 10/07/2023 10:31:00 AM Assessment Injection assessment: negative aspiration for heme, local visualized surrounding nerve on ultrasound and incremental injection Heart rate change: no Slow fractionated injection: yes Additional Notes 30cc injected on either side, 60cc total Cosigned by Adalberto Mckeon MD at 10/07/2023 10:46 AM EST Associated attestation - Adalberto Mckeon MD - 10/07/2023 10:46 AM EST I was present during all critical and murphy portions of the procedure(s) and immediately available [facility] services the entire duration. See resident note for details. * Anesthesia Procedure Notes - Delgado Rodriguez CRNA - 10/07/2023 10:41 AM EST Associated Order(s): Airway Airway Date/Time: 10/07/2023 10:27 AM Urgency: elective Airway not difficult General Information and Staff Patient location during procedure: OR MACHINE SEWER: Delgado Rodriguez CRNA Performed: KALI Indications and Patient Condition Indications for airway management: anesthesia Spontaneous Ventilation: absent Preoxygenated: yes Patient position: sniffing Mask difficulty assessment: 1 - vent by mask Final Airway Details Final airway type: endotracheal airway Successful airway: ETT Cuffed: yes Successful intubation technique: direct laryngoscopy Facilitating devices/methods: intubating stylet Endotracheal tube insertion site: oral Blade: Durán Blade size: #2 ETT size (mm): 7.0 Cormack-Lehane Classification: grade I - full view of glottis Placement verified by: chest auscultation and capnometry Cuff volume (mL): 4 Measured from: gums Number of attempts at approach: 1 Additional Comments Atraumatic. No change to dentition. * Anesthesia Preprocedure Evaluation - Rosalie Goodwin DO - 10/07/2023 8:06 AM EST Patient: Betty ROACH Procedure Information Date/Time: 10/07/23 1000 Procedure: COMPLEX REPAIR, HERNIA, VENTRAL - 210 minutes Location: OR [address] [place] [address] OR Surgeons: Isaac Boone MD 48 year old female presenting for ventral hernia repair. PMH: alcoholic cirrhosis, former smoker, anxiety. 09/23/2021 ECG: sinus rhythm with occasional PVCs, prolonged QT 09/23/2021 Echo: EF 55-60%, no valvular abnormalities Prior GA without complications. 05/14/2023: Mac 3, 7.0 ETT, grade I view Relevant Problems GI (+) Incisional hernia with obstruction Anesthesia Evaluation No anesthesia staff entered. HPI Betty ROACH is a 48 y.o. female who presents with Incisional hernia with obstruction now scheduled for COMPLEX REPAIR, HERNIA, VENTRAL (N/A). ALLERGIES Allergies Allergen Reactions Sulfadiazine Itching NPO STATUS AIRWAY HISTORY Past Medical History: Diagnosis Date Alcohol abuse Alcohol withdrawal delirium (CMS/HCC) Anxiety 03/19/2018 COVID-19 09/23/2021 Dental disease top dentures/broken and missing bottom teeth Depression Essential hypertension 03/19/2018 Insomnia Spinal headache MEDICATIONS Outpatient Medications Prior to Admission Medication Sig Dispense Refill Last Dose HYDROcodone-acetaminophen ([place]) 5-325 MG tablet Take 1 tablet (5 mg of hydrocodone) by mouth every 6 (six) hours if needed. 09/07/2023 hydrOXYzine pamoate (Vistaril) 50 MG capsule Take 1 capsule (50 mg) by mouth 3 (three) times a day if needed. Past Week lisinopril 10 MG tablet Take 1 tablet (10 mg total) by mouth 1 (one) time each day. 30 tablet 11 rOPINIRole (Requip) 1 MG tablet Take 1 tablet (1 mg) by mouth every night. 09/07/2023 zolpidem (Ambien) 10 MG tablet Take 1 tablet (10 mg) by mouth at night if needed for sleep. 09/07/2023 Current Outpatient Medications Medication Instructions HYDROcodone-acetaminophen ([place]) 5-325 MG tablet 5 mg of hydrocodone, Oral, Every 6 hours PRN hydrOXYzine pamoate (VISTARIL) 50 mg, Oral, 3 times daily PRN lisinopril 10 mg, Oral, Daily rOPINIRole (REQUIP) 1 mg, Oral, Nightly zolpidem (AMBIEN) 10 mg, Oral, Nightly PRN Scheduled acetaminophen, 1,000 mg, Oral, Once ceFAZolin, 2 g, Intravenous, Once gabapentin, 300 mg, Oral, Once heparin (porcine), 5,000 Units, Subcutaneous, q8h SUKHJINDER Povidone-Iodine, 1 Application, Nasal, Once scopolamine, 1 patch, Transdermal, Once sodium chloride, 10 mL, Intravenous, q12h AND sodium chloride, 10 mL, Intravenous, PRN Insert peripheral IV, , , Once AND Saline lock IV, , , Once AND sodium chloride, 10 mL, Intravenous, q12h AND sodium chloride, 10 mL, Intravenous, PRN PRNs PRN medications: lidocaine, sodium chloride AND sodium chloride, Insert peripheral IV AND Saline lock IV AND sodium chloride AND sodium chloride SURGICAL HX: Past Surgical History: Procedure Laterality Date SECTION, LOW TRANSVERSE EXPLORATORY LAPAROTOMY 09/12/2021 evacuation of tubo-ovarian abscess SKIN SPLIT GRAFT from right thigh to abdominal wound FUNCTIONAL CAPACITY SOCIAL HX: Social History Tobacco Use Smoking status: Former [...] use: Not Currently Comment: denies current use OBJECTIVE DATA LABS Type and Screen No results found for: ABO COVID SARS CoV-2/COVID-19 RNA PCR Result Date Value Ref Range Status 10/07/2021 Not Detected Not Detected Final Lab Results Component Value Date WBC 5.12 01/23/2022 HGB 10.3 (L) 01/23/2022 HCT 32.2 (L) 01/23/2022 MCV 92 01/23/2022 PLT 213 01/23/2022 Lab Results Component Value Date GLUCOSE 122 (H) 01/23/2022 CALCIUM 8.3 (L) 01/23/2022 NA 137 01/23/2022 K 2.6 (L) 01/23/2022 CO2 33 (H) 01/23/2022 CL 93 (L) 01/23/2022 BUN 7 01/23/2022 CREATININE 0.81 01/23/2022 Diabetic Labs Lab Results Component Value Date HGBA1C 4.9 09/23/2021 Lab Results Component Value Date HGBA1C 4.9 09/23/2021 PGLU 78 10/15/2021 ABG Lab Results Component Value Date PHART 7.53 (H) 09/23/2021 [id number] 39 09/23/2021 PO2ART 85 09/23/2021 SO2ART 98 09/23/2021 BEART 9.1 (H) 09/23/2021 WTE9OFZ 32.6 (H) 09/23/2021 HCTART 23.0 (L) 09/23/2021 SODIUMART 148 (H) 09/23/2021 POTASSIUMART 3.6 09/23/2021 POCTCL 112 (H) 09/23/2021 POCGLU 107 (H) 09/23/2021 IONCALART 4.8 09/23/2021 LACTATE 1.0 09/23/2021 Lab Results Component Value Date ABH5RQR 32.6 (H) 09/23/2021 NA 137 01/23/2022 CAION 4.7 09/29/2021 LACTATE 1.0 09/23/2021 EKG No results found for this or any previous visit (from the past 4464 hour(s)). ECHO No echocardiogram results found for the past 12 months PFTs No results found for: ASD5RVS , BFC5QVZW , SMN8DCB , FVCPRED Physical Exam Airway Mallampati: III Mouth opening: normal TM distance: >3 FB Neck ROM: full Cardiovascular Rhythm: regular Rate: normal Dental (+) upper dentures Pulmonary Breath sounds clear to auscultation Neurological Oriented: normal to time, normal to place and normal to person Skin Musculoskeletal Extremities Anesthesia Plan ASA 3 Plan was reviewed with: MACHINE SEWER and attending Anesthesia technique(s) discussed with the patient/family: general Anesthesia plan agreed upon was: general Anesthetic plan and risks discussed with patient. Additional Equipment Requests Cosigned by Adalberto Mckeon MD at 10/07/2023 8:47 AM EST Associated attestation - Adalberto Mckeon MD - 10/07/2023 8:47 AM EST I agree with the findings and care plan documented in the preprocedure evaluation note. documented in this encounter Plan of Treatment Not on file documented as of this encounter Procedures Procedure Name Priority Date/Time Associated Diagnosis Comments PB POINT OF CARE IMAGING PLACEHOLDER Routine 10/07/2023 10:31 AM EST PB ANESTHESIA PLACEHOLDER Routine 10/07/2023 10:27 AM EST DE AN ELECTIVE ENDOTRACHEAL AIRWAY Routine 10/07/2023 10:27 AM EST documented in this encounter Results * PB POINT OF CARE IMAGING PLACEHOLDER (10/07/2023 10:31 AM EST) Narrative Adalberto Mckeon MD - 10/07/2023 10:31 AM EST Rosalie Goodwin, ? 10/07/2023 10:45 AM Peripheral Block - ANESTHESIA Patient location during procedure: OR Start time: 10/07/2023 10:31 AM Reason for block: post-op pain management Block is at surgeon's request Staffing Performed: Resident Anesthesiologist: Adalberto Mckeon MD Resident: Rosalie Goodwin, Preanesthetic Checklist Completed: patient identified, IV checked, site marked, risks and benefits discussed, surgical consent, monitors and equipment checked, pre-op evaluation and timeout performed Peripheral Block Patient position: supine Prep: ChloraPrep Patient monitoring: continuous pulse ox, heart rate and cardiac cath technologist Block type: TAP Anesthesia laterality: Bilateral. Injection technique: single-shot Guidance: ultrasound guided Ultrasound used for needle placement AND ultrasound image retained Needle Needle type: pencil-tip Needle gauge: 27 G Needle length: 10 cm Needle localization: anatomical landmarks and ultrasound guidance Medications Administered 0.25 % bupivacaine PF (Marcaine) - Injection 60 mL - 10/07/2023 10:31:00 AM Assessment Injection assessment: negative aspiration for heme, local visualized surrounding nerve on ultrasound and incremental injection Heart rate change: no Slow fractionated injection: yes Additional Notes 30cc injected on either side, 60cc total us Adalberto Mckeon MD ANESTHESIA ORDERABLES Mallory l Result * DE AN ELECTIVE ENDOTRACHEAL AIRWAY, PB ANESTHESIA PLACEHOLDER (10/07/2023 10:27 AM EST) Narrative Delgado Rodriguez CRNA - 10/07/2023 10:27 AM EST Delgado Rodriguez CRNA ? 10/07/2023 10:41 AM Airway Date/Time: 10/07/2023 10:27 AM Urgency: elective Airway not difficult General Information and Staff Patient location during procedure: OR MACHINE SEWER: Delgado Rodriguez CRNA Performed: MACHINE SEWER Indications and Patient Condition Indications for airway management: anesthesia Spontaneous Ventilation: absent Preoxygenated: yes Patient position: sniffing Mask difficulty assessment: 1 - vent by mask Final Airway Details Final airway type: endotracheal airway Successful airway: ETT Cuffed: yes Successful intubation technique: direct laryngoscopy Facilitating devices/methods: intubating stylet Endotracheal tube insertion site: oral Blade: Durán Blade size: #2 ETT size (mm): 7.0 Cormack-Lehane Classification: grade I - full view of glottis Placement verified by: chest auscultation and capnometry Cuff volume (mL): 4 Measured from: gums Number of attempts at approach: 1 Additional Comments Atraumatic. No change to dentition. us Adalberto Mckeon MD ANESTHESIA ORDERABLES Mallory mata Result documented in this encounter Visit Diagnoses Not on filedocumented in this encounter Administered Medications Inactive Administered Medications - up to 3 most recent administrations Medication Order MAR Action Action Date Dose Rate Site bupivacaine PF (Marcaine) 0.25 % injection Injection, Once PRN Procedure, Starting on Fri10/07/23 at 1031, Until Fri10/07/23 at 1031, Routine, Anesthesia Intraprocedure Given 10/07/2023 10:31 AM EST 60 mL ceFAZolin (Ancef) injection 2 g 2 g, Intravenous, Once, 1 dose, On Fri10/07/23 at 0815, Routine, Holding - Preprocedure Given 10/07/2023 10:33 AM EST 2 g dexamethasone (Decadron) injection Intravenous, As needed, Starting on Fri10/07/23 at 1041, Until Fri10/07/23 at 1421, Routine, Anesthesia Intraprocedure Given 10/07/2023 10:41 AM EST 8 mg dexmedetomidine (Precedex) 200 MCG/2ML concentrated solution Intravenous, As needed, Starting on Fri10/07/23 at 1046, Until Fri10/07/23 at 1421, Routine, Anesthesia Intraprocedure Given 10/07/2023 2:05 PM EST 8 mcg Given 10/07/2023 10:46 AM EST 12 mcg fentaNYL (Sublimaze) injection Intravenous, As needed, Starting on Fri10/07/23 at 1025, Until Fri10/07/23 at 1421, Routine, Anesthesia Intraprocedure Given 10/07/2023 10:25 AM EST 100 mcg HYDROmorphone PF (Dilaudid) injection Intravenous, As needed, Starting on Fri10/07/23 at 1101, Until Fri10/07/23 at 1421, Routine, Anesthesia Intraprocedure Given 10/07/2023 11:01 AM EST 1 mg lactated Ringer's infusion 100 mL/hr, Intravenous, Continuous, Starting on Fri10/07/23 at 0815, Until Fri10/10/23 at 0647, Routine Restarted 10/07/2023 12:47 PM EST Continued by Anesthesia 10/07/2023 10:20 AM EST 100 mL/hr New Bag 10/07/2023 8:34 AM EST 100 mL/hr 100 mL/hr midazolam (Versed) injection Intravenous, As needed, Starting on Fri10/07/23 at 1020, Until Fri10/07/23 at 1421, Routine, Anesthesia Intraprocedure Given 10/07/2023 10:20 AM EST 2 mg ondansetron (Zofran) injection Intravenous, As needed, Starting on Fri10/07/23 at 1407, Until Fri10/07/23 at 1421, Routine, Anesthesia Intraprocedure Given 10/07/2023 2:07 PM EST 4 mg phenylephrine in NS (Reuben-Synephrine) 100 mcg/mL prefilled syringe Intravenous, As needed, Starting on Fri10/07/23 at 1131, Until Fri10/07/23 at 1421, Routine, Anesthesia Intraprocedure Given 10/07/2023 12:22 PM EST 100 mcg Given 10/07/2023 11:31 AM EST 100 mcg propofol (Diprivan) injection Intravenous, As needed, Starting on Fri10/07/23 at 1025, Until Fri10/07/23 at 1421, Routine, Anesthesia Intraprocedure Given 10/07/2023 10:25 AM EST 200 mg rocuronium (ZeMuron) injection Intravenous, As needed, Starting on Fri10/07/23 at 1025, Until Fri10/07/23 at 1421, Routine, Anesthesia Intraprocedure Given 10/07/2023 1:01 PM EST 30 mg Given 10/07/2023 11:27 AM EST 20 mg Given 10/07/2023 10:49 AM EST 30 mg sugammadex (Bridion) 200 MG/2ML injection Intravenous, As needed, Starting on Fri10/07/23 at 1403, Until Fri10/07/23 at 1421, Routine, Anesthesia Intraprocedure Given 10/07/2023 2:03 PM EST 200 mg documented in this encounter Additional Health Concerns Assessment Noted Time A fall risk assessment has been complete d for the patient 08/20/2023 9:29 AM EST A Body Mass Index follow-up plan has been documented for the patient 10/13/2023 9:20 AM EST documented as of this encounter Care Teams Usps Letter Carrier Relationship Specialty Start Date End Date Shantanu Landeros MD [address] [place] [address] PCP - General 06/12/22 documented as of this encounter
--- OUTSIDE RECORDS SUMMARY | 2024-08-04 20:03 | XMS_ITS | Encounter Summary ---
Author Organization Healthcare Address [address] [id number] Care Team Providers Care Ruling Machine Feeder Name Role Phone Shantanu Landeros MD Primary Care Provider [phone] Reason for Referral * Consultation (Routine) - Closed Specialty Diagnoses / Procedures Referred By Carla meyer Referred To Contact Plastic Surgery Diagnoses Open wound of abdominal wall, sequela Micah Ni MD [address] [address] Phone: tel: fax: Referral ID Status Reason Start Date Expiration Date V isits Requested Visits Authorized [id number] Closed Specialty Services Required 05/14/2023 11/12/2024 1 1 Scheduling Instructions With Shannon Jhaveri NP Reason for Visit * Auth/Cert (Routine) Specialty Diagnoses / Procedures Referred By Carla meyer Referred To Contact Diagnoses Open wound of abdominal wall, subsequent encounter Open wound of abdominal wall, subsequent encounter [S31.109D] Procedures MD SPLIT GRFT TRUNK,ARM,LEG <100 SQCM MD SPLIT GRFT,TRUNK,ARM,LEG EA 100 SQCM DEBRIDEMENT, WITH SPLIT-THICKNESS SKIN GRAFT APPLICATION; abdomen Micah Ni MD [address] [address] Phone: tel: fax: [facility] [address] [place] [address] Phone: tel: Referral ID Status Reason Start Date Expiration Date Visits Re quested Visits Authorized [id number] 1 1 Encounter Details Date Type Department Care Team (Late st Contact Info) Description 05/14/2023 7:05 AM EDT - 05/14/2023 11:54 AM EDT Hospital Encounter [facility] [address] [place] [address] Micah Ni MD [address] [address] Open wound of abdominal wall, sequela (Primary Dx); Ventral hernia without obstruction or gangrene Discharge Disposition: Home or Self Care Social [...] and Family Not on file 02/27/2021 Attends Christian Services Not on file 02/27 Active Member [...] Date Recorded Patient Health Questionnaire-2 Score 1 04/23/2023 [place] [place] [employer] [facility] - Occupational Stress [...] in a senior care (including now)? 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 file Not on file Not on f ile documented as of this encounter Last Filed Vital Signs Vital Sign Reading Time Taken Comments Blood Pressure 131/90 05/14/2023 11:33 AM EDT Pulse 86 05/14/2023 11:33 AM EDT Temperature 36.4 ??C (97.5 ??F) 05/14/2023 11:33 AM E DT Respiratory Rate 19 05/14/2023 11:33 AM EDT Oxygen Saturation 97% 05/14/2023 11:33 AM EDT Inhaled Oxygen Concentration - - Weight 75.3 kg (166 lb 0.1 oz) 05/14/2023 8:40 A M EDT Height - - Body Mass Index 26 05/02/2023 9:54 AM EDT documented in this encounter Discharge Instructions * Attachments The following attachments cannot be sent through Care Everywhere. * Anesthesia: General Anesthesia (Citizen Of [place]) * Constipation (Adult) (Citizen [place]) * Controlled Substance Discharge Sheet - ROBERT () (Citizen [place]) * Managing Post-Op Pain at Home (Citizen [place]) documented in this encounter Medications at Time of Discharge rOPINIRole (Requip) 1 MG tablet Take 1 tablet (1 mg) by mouth at night if needed. 04/22/2023 zolpidem (Ambien) 10 MG tablet Take 1 tablet (10 mg) by mouth at night if needed for sleep. 04/22/2023 PARoxetine (Paxil) 40 MG tablet Take 1 tablet (40 mg) by mouth 1 (one) time each day in the morning. 4 oxyCODONE-acetam inophen (Percocet) 5-325 MG tablet Take 1 tablet by mouth every 6 (six) hours if needed for severe pain for up to 5 days. 12 tablet 05/14/2023 3 docusate sodium (Colace) 100 MG capsule Take 1 capsule (100 mg) by mouth 1 (one) time each day if needed for constipation. 10 capsule 05/14/2023 4 folic acid (Folvite) 1 MG tablet TAKE 1 TABLET BY MOUTH DAILY FOR SUPPLEMENT 04/22/2023 4 HYDROcodone-acet aminophen ([place]) 7.5-325 MG tablet Take 1 tablet (7.5 mg of hydrocodone) by mouth every 6 (six) hours if needed for severe pain. 04/22/2023 4 lisinopril 10 MG tablet Take 1 tablet (10 mg total) by mouth 1 (one) time each day. 30 tablet 11 10/17/2021 4 lisinopril-hydro CHLOROthiazide 10-12.5 MG tablet Take 1 tablet by mouth 1 (one) time each day. 05/03/2023 4 loratadine (Claritin) 10 MG tablet Take 1 tablet (10 mg) by mouth 1 (one) time each day. 05/03/2023 4 naltrexone (ReVia) 50 MG tablet Take 1 tablet (50 mg) by mouth every night. 4 QUEtiapine (SEROquel) 100 MG tablet Take 1 tablet (100 mg) by mouth every night. 4 documented as of this encounter Miscellaneous Notes * Anesthesia PACU Signout - Timothy Hadley DO - 05/14/2023 11:12 AM EDT Patient: Betty LEVI Anesthesia Type: general Vitals Value Taken Time BP 120/77 05/14/23 1102 Temp 36.6 ??C (97.8 ??F) 05/14/23 1035 Pulse 86 05/14/23 1111 Resp 15 05/14/23 1111 SpO2 97 % 05/14/23 1111 Vitals shown include unvalidated device data. Anesthesia PACU Signout Patient location during evaluation: PACU Patient participation: complete - patient participated Level of consciousness: baseline Pain management: adequate (pain score 0-3) Airway patency: natural airway Hydration status: acceptable PONV: none Cardiovascular status: acceptable and hemodynamically stable Respiratory status: acceptable, spontaneous ventilation and room air Discharge Disposition: home Comments: Patient is s/p abdominal skin graft under GA. Patient remains HDS on room air, neurologically appropriate, pain is controlled, and tolerating PO w/o N/V. Patient is appropriate for discharge from PACU to home for continued postop care. Cosigned by Keaton Palomino MD at 05/14/2023 11:24 AM EDT Associated attestation - Keaton Palomino MD - 05/14/2023 11:24 AM EDT I saw and evaluated the patient with the resident/fellow. I discussed the case with the resident/fellow and agree with the findings and plan as documented. * Op Note - Corine Keys MD - 05/14/2023 10:04 AM EDT Operative Note Date: 05/14/23 Location: [facility] OR Name: Betty LEVI, : 1975, Diagnoses: Pre-op Diagnosis Open wound of abdominal wall, subsequent encounter Post-op Diagnosis Open wound of abdominal wall, subsequent encounter Procedure(s): 1) Preparation of recipient wound bed of abdomen, 9x6 cm for a total of 54 square centimeters 2) Split thickness skin graft from the right thigh donor to the abdomen, 9x6 cm for a total of 54 square centimeters Attending Surgeon(s): * Micah Ni - Primary Farm Laborer(s): * Corine Keys MD - Resident - Assisting Anesthesia: General ASA: III Blood Administration: Blood Product Administration History Date Volume Status Transfuse RBC 09/25/2021 654 mL Completed 09/25/21 0752 Estimated Blood Loss: Minimal Drains: * None in log * Specimen: None Findings: See operative dictation Indications: Betty LEVI is a 48 yo F with a history of a ventral hernia complicated by a residual open abdominal wound. She has been evaluated by our hernia specialist at who recommended the wound be formally addressed prior to consideration for ventral hernia repair. The patient was offered split thickness skin grafting for wound coverage and presents today for the procedure. Treatment options including non-operative intervention were discussed. Risks, benefits and alternatives to proceeding with surgery versus non-surgical interventions were discussed with the patient and/or family. Risks include but are not limited to: infection, bleeding, hematoma, wound breakdown, delayed healing scarring, postoperative drainage, revision surgery as well as general surgical risks such as blood clot, heart attack, stroke and . The patient had the opportunity to ask questions and verbalized understanding of the treatment plan. Expected postoperative recovery and restrictions were also discussed. Narrative: Ms. Levi was met in the preoperative holding area where appropriate patient and operative site were confirmed. Consent was obtained and patient was marked on the correct operative extremity as well as the abdomen. Patient was then brought back to the operating room and placed supine on the operating room table. General anesthesia was then induced without difficulty. The patient was then prepped and draped in the usual sterile fashion. Following this, a formal time-out was performed where appropriate patient and operative site were again confirmed. All parties were in agreement. We 1st began by debriding the abdominal wound sharply using a Weck blade. We were careful to set our attention during debridement as to avoid any proximity to the underlying bowel. Reuben-soaked telfas were then applied to the abdomen briefly for hemostasis. Satisfied with our debridement to good healthy bleeding tissue we then turned our attention to the right thigh. Approximately 10 ml of 0.25% Marcaine mixed 1:1 with 1% Lidocane was instilled throughout the expected harvest site on the right thigh. We measured our abdominal wound to be approximately 9 x 6 cm and subsequently marked a 9 x 6 cmarea on the right thigh for skin graft harvest. A 0.012 in thick graft was harvested using the derma tome. Reuben-soaked Telfas were then applied to the right thigh for hemostasis. The skin graft was then meshed 1:1.5 and applied to the abdominal wound. Dermabond was then applied to the skin graft and an overlying bolster dressing was sewn in place.We were careful with our bolster sutures to place then laterally outside of any hernia sac to avoid inadvertent bowel injury. An ABD pad and skin tape we re then applied over the bolster. The right thigh was then dressed with Mepilex, an overlying tegaderm and Christopher wrap. The patient was then awoken from anesthesia uneventfully and transported to PACU in stable condition. At the conclusion of the case, all counts were correct. Dr. Ni was present for all portions ofthe procedure. Complications: None; patient tolerated the procedure well. Submitted by: Corine Keys MD - 05/14/2023 Cosigned by Micah Ni MD at 05/15/2023 8:59 AM EDT Associated attestation - Micah Ni MD - 05/15/2023 8:59 AM EDT I was present for the entirety of the procedure(s). * H&P - Corine Keys MD - 05/14/2023 9:30 AM EDT H&P reviewed. No changes identified. To OR. Plastic Surgery Clinic Note HISTORY OF PRESENT ILLNESS: Betty LEVI is a 48 y.o. female presenting for a follow up for her painful periumbilical wound. Her wound has been present since undergoing surgical intervention for an ovarian abscess in 2020. After her last visit (04/04/23) she was referred to see Dr. Boone for evaluation of her ventral hernia underlying the periumbilical wound. Dr Boone recommended STSG with a 3-4 month post operative healing time for inflammation reduction with plastics prior to surgical hernia repair. Patient also notes that her nutritional labs/CBC/CMP that were drawn due to her history of alcoholism, came back within normal limits with the exception of high iron levels, for which she has subsequently discont inued her at home supplementation. She is eager to move forward with the process to resolve her hernia/periumbilical wound. 14 point ROS performed and negative except where noted in HPI PAST MEDICAL HISTORY: Reviewed and noncontributory Medical History Past Medical History: Diagnosis Date Alcohol abuse Alcohol withdrawal delirium (CMS/HCC) Anxiety 03/19/2018 COVID-19 09/23/2021 Depression Essential hypertension 03/19/2018 Insomnia PAST SURGICAL HISTORY: Reviewed, and noncontributory Surgical History Past Surgical History: Procedure Laterality Date SECTION, LOW TRANSVERSE EXPLORATORY LAPAROTOMY 09/12/2021 evacuation of tubo-ovarian abscess FAMILY HISTORY Denies family history of bleeding or blood clotting disorders Family History Family History Problem Relation Name Age of Onset Cervical cancer Mother Hypertension Father MEDICATIONS: Current Medications Current Outpatient Medications Medication Sig Dispense Refill naltrexone (ReVia) 50 MG tablet Take 1 tablet (50 mg) by mouth every night. PARoxetine (Paxil) 40 MG tablet Take 1 tablet (40 mg) by mouth 1 (one) time each day in the morning. QUEtiapine (SEROquel) 100 MG tablet Take 1 tablet (100 mg) by mouth every night. QUEtiapine (SEROquel) 50 MG tablet Take 1 tablet (50 mg) by mouth every night. lisinopril 10 MG tablet Take 1 tablet (10 mg total) by mouth 1 (one) time each day. 30 tablet 11 nicotine (Nicoderm CQ) 21 MG/24HR patch Place 1 patch on the skin 1 (one) time each day. 30 patch 0 No current facility-administered medications for this visit. 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 Tobacco Use Smoking status: Former Packs/day: 1.00 Years: 32.00 Total pack years: 32.00 Types: Cigarettes Passive exposure: Past Smokeless tobacco: Never Vaping Use Vaping Use: Never used Substance and Sexual Activity Alcohol use: Not Currently Alcohol/week: 21.0 - 30.0 standard drinks of alcohol Types: 21 - 30 Shots of liquor per week Comment: 3 airplane bottles/day on weekdays; 6 airplane bottles/day on weekends Drug use: Never Comment: denies current use Sexual activity: Not on file Other Topics Concern Not on file Social History Narrative Not on file Social Determinants of Health Financial Resource Strain: Not on file Food Insecurity: No Food Insecurity (02/27/2021) Hunger Vital Sign Worried About Running Out of Food in the Last Year: Never true Ran Out of Food in the Last Year: Never true Transportation Needs: Not on file Physical Activity: Not on file Stress: Stress Concern Present (02/27/2021) [employer] [place] [employer] - Occupational Stress Questionnaire Feeling of Stress : Very much Social Connections: Unknown (02/27/2021) Social Connection and Isolation Panel [NHANES] Frequency of Communication with Friends and Family: Not on file Frequency of Social Gatherings with Friends and Family: Not on file Attends Christian Services: Not on file Active Member of Clubs or Organizations: Not on file Attends Club or Organization Meetings: Not on file Marital Status: Intimate Partner Violence: Not on file Housing Stability: Unknown (02/27/2021) Housing Stability Vital Sign Unable to Pay for Housing in the Last Year: No Number of Places Lived in the Last Year: Not on file Unstable Housing in the Last Year: No OBJECTIVE Vitals 01/23/2022 01/23/2022 01/23/2022 01/23/2022 04/04/2023 04/23/2023 05/02/2023 Systolic - - 135 148 88 140 117 Diastolic - - 83 103 59 84 78 Pulse 101 - 91 93 97 84 88 Temp - - - - 36.2 C 36.3 C 35.7 C Resp 15 - 15 19 - - - Height (cm) - 170.2 cm - - 170.2 cm 170.2 cm 170.2 cm Weight (kg) - 68.5 kg - - 74.163 kg 76.522 kg 75.342 kg BMI (kg/m2) - 23.65 kg/m2 - - 25.61 kg/m2 26.42 kg/m2 26.01 kg/m2 BSA (m2) - 1.8 m2 - - 1.87 m2 1.9 m2 1.89 m2 VISIT REPORT - - - - - - - Some recent data might be hidden PHYSICAL EXAM Physical Exam Constitutional: Appearance: Normal appearance. HENT: Head: Normocephalic and atraumatic. Eyes: Conjunctiva/sclera: Conjunctivae normal. Pupils: Pupils are equal, round, and reactive to light. Cardiovascular: Rate and Rhythm: Normal rate and regular rhythm. Pulmonary: Effort: Pulmonary effort is normal. Abdominal: Palpations: Abdomen is soft. Hernia: A hernia (Right ventral hernia present unpon palpation.) is present. Comments: Large midline abdominal wound with healthy granulation tissue and minimal erythema present Skin: General: Skin is warm and dry. Neurological: General: No focal deficit present. Mental Status: She is alert and oriented to person, place, and time. Psychiatric: Mood and Affect: Mood normal. IMAGING/DATA: OSH Records Reviewed Imaging Records Reviewed Medical Decision Making Reviewed ASSESSMENT/PLAN Bettystacia LEVI is a 48 y.o. female presenting for follow up of her painful periumbilical wound. Today, it was discussed with patient that her periumbilical wound needs to be repaired with aSTSG taken from her thigh prior to surgical intervention for her hernia with Dr. Boone. Patient was educated that the healing time for the STSG would take at least 3 months. Patient voiced agreement and understanding. The risks and benefits of surgical intervention were discussed with patient at today's visit, and she wishes to proceed as soon as possible. The care plan for the day is as follows: -Obtain updated abdominal photos -Surgery scheduling orders placed -Will contact patient to schedule operative date Cosigned by Micah Ni MD at 05/14/2023 9:35 AM EDT Associated attestation - Micah Ni MD - 05/14/2023 9:35 AM EDT Signature Only * Preprocedure Instructions - Shauna Hopper RN - 05/05/2023 1:06 PM EDT Current Medications Medication Instructions lisinopril 10 MG tablet Hold day of surgery naltrexone (ReVia) 50 MG tablet Take night before surgery PARoxetine (Paxil) 40 MG tablet Take morning of surgery QUEtiapine (SEROquel) 100 MG tablet Take night before surgery General [...] card, photo ID, along with power of composition roofer, guardianship or advanced directives if applicable Do not bring money, jewelry or other valuables Hibiclens bathing instructions reviewed if applicable Notify surgeon of fever, illness, any changes or if you decide not to have surgery * PAT Phone Note - Shauna Hopper RN - 05/05/2023 1:06 PM EDT HPI Betty LEVI is a 48 y.o. female who presents with Pre-op Diagnosis * Open wound of abdominal wall, subsequent encounter [S31.109D] now scheduled for DEBRIDEMENT, WITHSPLIT-THICKNESS SKIN GRAFT APPLICATION; abdomen (Bilateral). Date scheduled is 05/14/2023. Past Medical History: Diagnosis Date Alcohol abuse Alcohol withdrawal delirium (CMS/HCC) Anxiety 03/19/2018 COVID-19 09/23/2021 Dental disease top dentures/broken and missing bottom teeth Depression Essential hypertension 03/19/2018 Insomnia Spinal headache Family History Problem Relation Name Age of Onset Cervical cancer Mother Hypertension Father Social History Tobacco Use Smoking status: Former Packs/day: 1.00 Years: 32.00 Total pack years: 32.00 Types: Cigarettes Passive exposure: Past Smokeless tobacco: Never Vaping Use Vaping Use: Never used Substance Use Topics Alcohol use: Not Currently Alcohol/week: 21.0 - 30.0 standard drinks of alcohol Types: 21 - 30 Shots of liquor per week Comment: 3 airplane bottles/day on weekdays; 6 airplane bottles/day on weekends Drug use: Never Comment: denies current use SURGICAL HISTORY: Past Surgical History: Procedure Laterality Date SECTION, LOW TRANSVERSE EXPLORATORY LAPAROTOMY 09/12/2021 evacuation of tubo-ovarian abscess Allergies Allergen Reactions Sulfadiazine Itching MEDICATIONS: No current facility-administered medications for this encounter. Current Outpatient Medications: lisinopril, Take 1 tablet (10 mg total) by mouth 1 (one) time each day. naltrexone, Take 1 tablet (50 mg) by mouth every night. PARoxetine, Take 1 tablet (40 mg) by mouth 1 (one) time each day in the morning. QUEtiapine, Take 1 tablet (100 mg) by mouth every night. nicotine, Place 1 patch on the skin 1 (one) time each day. QUEtiapine, Take 1 tablet (50 mg) by mouth every night. (Patient not taking: Reported on 05/05/2023) Shauna Hopper RN documented in this encounter Plan of Treatment Scheduled Referrals Name Type Priority Associated Diagnoses Order Schedule Discharge Ambulatory referral to Plastic Surgery Outpatient Referral Routine Open wound of abdominal wall, sequela Expected: 05/19/2023, Expires: 11/14/2024 documented as of this encounter Procedures Procedure Name Priority Date/Time Associated Diagnosis Comments DEBRIDEMENT, WITH SPLIT-THICKNESS SKIN GRAFT APPLICATION 05/14/2023 9:31 AM EDT Open wound of abdominal wall, subsequent encounter Special Needs patient will require wound vac following OR POCT , URINE Routine 05/14/2023 8:46 AM EDT documented in this encounter Results * POCT Urine (05/14/2023 8:46 AM EDT) Urine - Point of Care Negative - [...] of Care. INTERNAL QC OK, PREG URINE na KIT LOT NUMBER, PREG URINE [id number] KIT EXPIRATION DATE, PREG URINE 09/21/2024 Urine Urine specimen obtained by clean catch procedure / Unknown 05/14/2023 8:46 AM EDT Keaton Palomino MD POINT OF CARE TEST ENTER/EDIT ORDERABLES Final Result documented in this encounter Visit Diagnoses Diagnosis Open abdominal wall wound- Primary Open wound of abdominal wall, sequela Ventral hernia without obstruction or gangrene Unspecified ventral hernia without mention of obstruction or gangrene documented in this encounter Admitting Diagnoses Diagnosis Open abdominal wall wound documented in this encounter Administered Medications Inactive Administered Medications - up to 3 most recent administrations Medication Order MAR Action Action Date Dose Rate Site famotidine PF (Pepcid) injection 20 mg 20 mg, Intravenous, Once, 1 dose, On Fri05/14/23 at 0745, Routine, Holding - Preprocedure Given 05/14/2023 8:22 AM EDT 20 mg fentaNYL (Sublimaze) injection 25 mcg 25 mcg, Intravenous, Every 5 min PRN, 2 doses, Starting on Fri05/14/23 at 1024, Until Fri05/14/23 at 1355, Routine, Recovery (Phase I only), pain score of 3-4 out of 10 Given 05/14/2023 11:00 AM EDT 25 mcg HYDROmorphone (Dilaudid) injection 0.5 mg 0.5 mg, Intravenous, Every 10 min PRN, 2 doses, Starting on Fri05/14/23 at 1024, Until Fri05/14/23 at 1355, Routine, Recovery (Phase I only), pain score of 9-10 out of 10 lactated Ringer's infusion 100 mL/hr, Intravenous, Once, 1 dose, On Fri05/14/23 at 0745, Routine New Bag 05/14/2023 8:22 AM EDT 100 mL/hr 100 mL/hr midazolam (Versed) injection 2 mg 2 mg, Intravenous, Once, 1 dose, On Fri05/14/23 at 0915, Routine, Holding - Preprocedure Given 05/14/2023 9:01 AM EDT 2 mg ondansetron (Zofran) injection 4 mg 4 mg, Intravenous, Once as needed, 1 dose, Starting on Fri05/14/23 at 1024, Until Fri05/14/23 at 1355, Routine, Recovery (Phase I only), nausea, vomiting oxyCODONE (Roxicodone) immediate release tablet 10 mg 10 mg, Oral, Once as needed, 1 dose, Starting on Fri05/14/23 at 1024, Until Fri05/14/23 at 1102, Routine, Recovery (Phase I only), pain score of 6-8 out of 10 Given 05/14/2023 11:02 AM EDT 10 mg prochlorperazine (Compazine) injection 5 mg 5 mg, Intravenous, Once, 1 dose, On Fri05/14/23 at 0745, Routine, Holding - Preprocedure Given 05/14/2023 8:22 AM EDT 5 mg sodium chloride 0.9 % flush 10 mL 10 mL, Intravenous, Every 12 hours, First dose on Fri05/14/23 at 0745, Until Discontinued, Routine, Holding - Preprocedure sodium chloride 0.9 % flush 10 mL 10 mL, Intravenous, As needed, Starting on Fri05/14/23 at 0726, Until Fri05/14/23 at 1355, Routine, Holding - Preprocedure, line care documented in this encounter Active and Recently Administered Medications Times are shown in EDT. Scheduled Medication Order 05/12/2023 05/13/2023 05/14/2023 famotidine PF (Pepcid) injection 20 mg (COMPLETED) 20 mg, Intravenous, Once, 1 dose, On Fri05/14/23 at 0745, Routine, Holding - Preprocedure 0822 (Given - Provid er: Dotty Lan, JOSE) lactated Ringer's infusion (COMPLETED) 100 mL/hr, Intravenous, Once, 1 dose, On Fri05/14/23 at 0745, Routine 0822 (New Bag - Prov ider: Dotty Lan, JOSE) lactated Ringer's infusion 20 mL/hr, Intravenous, Once, 1 dose, On Fri05/14/23 at 1045, Routine 1045 (Canceled Entry - Provider: Automatic Discharge Provider - Comment: Automatically canceled at discontinue of medication order) midazolam (Versed) injection 2 mg (COMPLETED) 2 mg, Intravenous, Once, 1 dose, On Fri05/14/23 at 0915, Routine, Holding - Preprocedure 0901 (Given - Provid er: Dotty Lan RN) prochlorperazine (Compazine) injection 5 mg (COMPLETED) 5 mg, Intravenous, Once, 1 dose, On Fri05/14/23 at 0745, Routine, Holding - Preprocedure 0822 (Given - Provid er: Dotty Lan RN) sodium chloride 0.9 % flush 10 mL(Linked Group 1) 10 mL, Intravenous, Every 12 hours, First dose on Fri05/14/23 at 0745, Until Discontinued, Routine, Holding - Preprocedure 0745 (Canceled Entry - Provider: Automatic Discharge Provider - Comment: Automatically canceled at discontinue of medication order) PRN Medication Order 05/12/2023 05/13/2023 05/14/2023 bupivacaine-EPINEPHrine PF (Marcaine w/EPI) 0.25% -[id number] injection (CANCELED) As needed, Starting on Fri05/14/23 at 1014, Until Fri05/14/23 at 1030, Routine, Intraprocedure 1014 (Given - Provid er: Micah Ni MD) fentaNYL (Sublimaze) injection 25 mcg 25 mcg, Intravenous, Every 5 min PRN, 2 doses, Starting on Fri05/14/23 at 1024, Until Fri05/14/23 at 1355, Routine, Recovery (Phase I only), pain score of 3-4 out of 10 1100 (Given - Provid er: Sherron Merida RN) HYDROmorphone (Dilaudid) injection 0.5 mg 0.5 mg, Intravenous, Every 10 min PRN, 2 doses, Starting on Fri05/14/23 at 1024, Until Fri05/14/23 at 1355, Routine, Recovery (Phase I only), pain score of 9-10 out of 10 ondansetron (Zofran) injection 4 mg 4 mg, Intravenous, Once as needed, 1 dose, Starting on Fri05/14/23 at 1024, Until Fri05/14/23 at 1355, Routine, Recovery (Phase I only), nausea, vomiting oxyCODONE (Roxicodone) immediate release tablet 10 mg (COMPLETED)(Linked Group 2) 10 mg, Oral, Once as needed, 1 dose, Starting on Fri05/14/23 at 1024, Until Fri05/14/23 at 1102, Routine, Recovery (Phase I only), pain score of 6-8 out of 10 1102 (Given - Provid er: Sherron Merida RN) sodium chloride 0.9 % flush 10 mL(Linked Group 1) 10 mL, Intravenous, As needed, Starting on Fri05/14/23 at 0726, Until Fri05/14/23 at 1355, Routine, Holding - Preprocedure, line care Linked Groups Order Group 1: Insert peripheral IV (CANCELED) Once, On Fri05/14/23 at 0727, For 1 occurrence, Holding - Preprocedure And Saline lock IV (CANCELED) Once, On Fri05/14/23 at 0727, For 1 occurrence, Holding - Preprocedure And sodium chloride 0.9 % flush 10 mLJump to med 10 mL, Intravenous, Every 12 hours, First dose on Fri05/14/23 at 0745, Until Discontinued, Routine, Holding - Preprocedure And sodium chloride 0.9 % flush 10 mLJump to med 10 mL, Intravenous, As needed, Starting on Fri05/14/23 at 0726, Until Fri05/14/23 at 1355, Routine, Holding - Preprocedure, line care Group 2: oxyCODONE (Roxicodone) immediate release tablet 5 mg (COMPLETED) 5 mg, Oral, Once as needed, 1 dose, Starting on Fri05/14/23 at 1024, Until Fri05/14/23 at 1102, Routine, Recovery (Phase I only), pain score of 3-5 out of 10 Or oxyCODONE (Roxicodone) immediate release tablet 10 mg (COMPLETED)Jump to med 10 mg, Oral, Once as needed, 1 dose, Starting on Fri05/14/23 at 1024, Until Fri05/14/23 at 1102, Routine, Recovery (Phase I only), pain score of 6-8 out of 10 documented in this encounter Additional Health Concerns Assessment Noted Time A fall risk assessment has been complete d for the patient 05/02/2023 9:55 AM EDT A Body Mass Index follow-up plan has been documented for the patient 05/03/2023 10:45 AM EDT documented as of this encounter Care Teams Ruling Machine Feeder Relationship Specialty Start Date End Date Shantanu Landeros MD [address] [place] [id number] PCP - General 06/12/22 documented as of this encounter
--- OUTSIDE RECORDS SUMMARY | 2024-08-04 20:03 | XMS_ITS | Encounter Summary ---
Author Organization Healthcare Address [address] [id number] Care Team Providers Care Cosmetics Presser Name Role Phone Shantanu Landeros MD Primary Care Provider [phone] Reason for Visit * Reason Onset Date Comments HCN Clinical Concern/Question 04/23/2023 Encounter Details Date Type Department Care Team (Late st Contact Info) Description 04/23/2023 Telephone [facility] General Surgery [address], [address] [place] [address] Isaac Boone MD [facility] [address] HCN Clinical Concern/Question Social History Tobacco Use Types Packs/Day Years [...] and Family Not on file 02/27/2021 Attends Restorationist Services Not on file 02/27 Active Member [...] Recorded Patient Health Questionnaire-2 Score 1 04/23/2023 [facility] of Occupat ional Health - Occupational Stress [...] Patient Health Questionnaire-2 Score 1 04/23/2023 Comments Unknown Sex and Gender Information Value Date Recorded Sex Assigned at Not on file Legal Sex Female 6:02 PM EDT Gender Identity Not on file Sexual Orientation Not on file 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 Called pt back to let her know but no answer and no voicemail set up. * Telephone Encounter - Malorie Abdul - 04/23/2023 10:40 AM EDT Clinical Concern/Question Reason for Call: Patient needs Dr. Boone to send a referral to plastics she has a 05/16 appointment but said needs to be seen sooner and if the request comes from [place] maybe able to get in sooner Best contact number: [phone] (home) Optimal time of day to reach caller: ANYTIME Additional comments/information from caller: None Note: Please do not reply to this message. Follow-up communication and further actions as a result of this message need to be communicated with the patient directly, if the patient is not active onMyChart. If the patient is active on MyChart, they will receive notification of the communication/outcome via [employer] documented in this encounter Plan of Treatment Not on file documented as of this encounter Visit Diagnoses Not on filedocumented in this encounter Additional Health Concerns Assessment Noted Time A Body Mass Index follow-up plan has been documented for the patient 04/24/2023 4:26 PM EDT documented as of this encounter Care Teams Cosmetics Presser Relationship Specialty Start Date End Date Shantanu Landeros MD [address] [place] [address] PCP - General 06/12/22 documented as of this encounter
--- OUTSIDE RECORDS SUMMARY | 2024-08-04 20:03 | XMS_ITS | Encounter Summary ---
Author Organization Healthcare Address [address] [place] [address] Care Team Providers Care Statistical Typist Name Role Phone Shantanu Landeros MD Primary Care Provider [phone] Encounter Details Date Type Department Care Team (Latest Contact Info) Description 04/04/2023 Travel Social History Tobacco Use Types Packs/Day Years Used Date Smoking Tobacco: Former Cigarettes 1 32 Alcohol Use Standard Drinks/Week Comments Yes 21 (1 standard drink = 0.6 oz pure alcohol) 3 airplane bottles/day on weekdays; 6 airplane bottles/day on weekends Social Connection and Isolation Panel [NHANES] A nswer Date Recorded Frequency of Communication with Friends and Fami ly Not on file 02/27/2021 Frequency of Social Gatherings with Friends and Family Not on file 02/27/2021 Attends Yazdanism Services Not on file 02/27 Active Member [...] Answer Date Recorded Patient Health Questionnaire-2 Score 2 02/27/2021 [facility] of Occupat ional Health - Occupational Stress [...] money to buy more. Never true 02/28/20 Within the past 12 months, t he [...] slept in a fci (including now)? 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
--- OUTSIDE RECORDS SUMMARY | 2024-08-04 20:03 | XMS_ITS | Encounter Summary ---
Author Organization Healthcare Address [address] [place], [place] [id number] Care Team Providers Care Ged Preparation Teacher Name Role Phone Shantanu Landeros MD Primary Care Provider [phone] Encounter Details Date Type Department Care Team (Late st Contact Info) Description 05/02/2023 9:45 AM EDT Office Visit [facility] Plastic & Reconstructive Surgery [address] [place] [phone] Micah Ni MD [address] [address] Open wound of abdominal wall, subsequent encounter (Primary Dx) Social History Tobacco Use Types [...] and Family Not on file 02/27/2021 Attends Synagogue Services Not on file 02/27 Active Member [...] Recorded Patient Health Questionnaire-2 Score 1 04/23/2023 [facility] of Occupat ional Health [...] place to sleep or slept in a correction (including now)? 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 on file Not on f ile documented as of this encounter Last Filed Vital Signs Vital Sign Reading Time Taken Comments Blood Pressure 117/78 05/02/2023 9:54 AM EDT Pulse 88 05/02/2023 9:54 AM EDT Temperature 35.7 ??C (96.2 ??F) 05/02/2023 9:54 AM ED T Respiratory Rate - - Oxygen Saturation 95% 05/02/2023 9:54 AM EDT Inhaled Oxygen Concentration - - Weight 75.3 kg (166 lb 1.6 oz) 05/02/2023 9:54 A M EDT Height 170.2 cm (5' 7 ) 05/02/2023 9:54 AM EDT Body Mass Index 26.01 05/02/2023 9:54 AM EDT documented in this encounter Miscellaneous Notes * Progress Notes - Janis Velasquez M - 05/02/2023 9:45 AM EDT Plastic Surgery Clinic Note HISTORY OF PRESENT ILLNESS: Betty ROACH is a 48 y.o. female presenting for a follow up for her painful periumbilical wound. Her wound has been present since undergoing surgical intervention for an ovarian abscess in 2020. After her last visit (04/04/23) she was referred to see Dr. Boone for evaluation of her ventral hernia underlying the periumbilical wound. Dr oBone recommended STSG with a 3-4 month post [...] HPI PAST MEDICAL HISTORY: Reviewed and noncontributory Past Medical History: Diagnosis Date Alcohol abuse Alcohol withdrawal delirium (CMS/HCC) Anxiety 03/19/2018 COVID-19 09/23/2021 Depression Essential hypertension 03/19/2018 Insomnia PAST SURGICAL HISTORY: Reviewed, and noncontributory Past Surgical History: Procedure Laterality Date SECTION, LOW TRANSVERSE EXPLORATORY LAPAROTOMY 09/12/2021 evacuation of tubo-ovarian abscess FAMILY HISTORY Denies family history of bleeding or blood clotting disorders Family History Problem Relation Name Age of Onset Cervical cancer Mother Hypertension Father MEDICATIONS: Current Outpatient Medications Medication Sig Dispense Refill [...] level: Not on file Occupational History 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 female [...] -Will contact patient to schedule operative date Janis Velasquez, MS3 Plastic and Reconstructive Surgery Cosigned by Micah Ni MD at 05/03/2023 10:34 AM EDT Associated attestation - Micah Ni MD - 05/03/2023 10:34 AM EDT I saw and evaluated the patient with the resident/fellow. I discussed the case with the resident/fellow and agree with the findings and plan as documented. documented in this encounter Plan of Treatment Not on file documented as of this encounter Visit Diagnoses Diagnosis Open wound of abdominal wall, subsequent encounter- Primary documented in this encounter Additional Health Concerns Assessment Noted Time A fall risk assessment has been complete d for the patient 05/02/2023 9:55 AM EDT A Body Mass Index follow-up plan has been documented for the patient 05/03/2023 10:45 AM EDT documented as of this encounter Care Teams Ged Preparation Teacher Relationship Specialty Start Date End Date Shantanu Landeros MD [address] [place] [address] PCP - General 06/12/22 documented as of this encounter
--- OUTSIDE RECORDS SUMMARY | 2024-08-04 20:03 | XMS_ITS | Encounter Summary ---
Author Organization Healthcare Address [address] [place], [place] [id number] Care Team Providers Care Mirror Painter Name Role Phone Shantanu Landeros MD Primary Care Provider [phone] Reason for Visit * Consultation (Routine) - Closed Specialty Diagnoses / Procedures Referred By Controxi t Referred To Contact Plastic Surgery Diagnoses Open wound of abdominal wall, sequela Micah Ni MD [address] [address] Phone: tel: fax: Referral ID Status Reason Start Date Expiration Date V isits Requested Visits Authorized [id number] Closed Specialty Services Required 05/14/2023 11/12/2024 1 1 Encounter Details Date Type Department Care Team (Late st Contact Info) Description 05/19/2023 2:30 PM EDT Office Visit 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 Not on file Not on f ile documented as of this encounter Last Filed Vital Signs Vital Sign Reading Time Taken Comments Blood Pressure 139/84 05/19/2023 2:32 PM EDT Pulse 99 05/19/2023 2:32 PM EDT Temperature - - Respiratory Rate - - Oxygen Saturation 95% 05/19/2023 2:32 PM EDT Inhaled Oxygen Concentration - - Weight 78.8 kg (173 lb 12.8 oz) 05/19/2023 2:32 PM EDT Height - - Body Mass Index 27.22 05/02/2023 9:54 AM EDT documented in this encounter Miscellaneous Notes * Progress Notes - Emilio Shannon Reed, NEUROLOGY PHYSICIAN ASSISTANT - 05/19/2023 2:30 PM EDT Subjective Patient ID: Betty LEVI is a 48 y.o. female. HPI Betty Levi is a 48 y o female preparation of recipient wound bed of abdomen, split thickness skin graft from the right thigh donor to the abdomen on 05/14/[address] Ni. Patient has gotten the bolster dressing wet and taken off the Mepilex from the donor site. Review of Systems All other systems reviewed and are negative. Objective Visit Vitals BP 139/84 Pulse 99 Wt 78.8 kg (173 lb 12.8 oz) SpO2 95% BMI 27.22 kg/m?? Physical Exam Vitals reviewed. Pulmonary: Effort: Pulmonary effort is normal. Skin: Capillary Refill: Capillary refill takes less than 2 seconds. Comments: Right thigh donor site: continues to heal, some bleeding noted with stuck on dressing change removal Abdomen: STSG with partial take of 75% Neurological: Mental Status: She is alert and oriented to person, place, and time. Psychiatric: Mood and Affect: Mood normal. Assessment/Plan Diagnoses and all orders for this visit: Postoperative examination Open wound of abdominal wall, sequela - Discharge Ambulatory referral to Plastic Surgery Betty Levi is a 48 y o female preparation of recipient wound bed of abdomen, split thickness skin graft from the right thigh donor to the abdomen on 05/14/[address] Ni. Patient to start Adaptic and Bacitracin dressing changes to her STSG to her abdomen twice daily. New Mepilex applied to the right thigh donor site. Patient has to avoid a shower and avoid a bath until her donor site has healed. Some supplies given to the patient today. She will follow up with Dotty Villela next week. documented in this encounter Plan of Treatment Not on file documented as of this encounter Visit Diagnoses Diagnosis Postoperative examination- Primary Follow-up examination, following unspecified surgery Open wound of abdominal wall, sequela documented in this encounter Additional Health Concerns Assessment Noted Time A fall risk assessment has been complete d for the patient 05/02/2023 9:55 AM EDT A Body Mass Index follow-up plan has been documented for the patient 05/19/2023 3:10 PM EDT documented as of this encounter Care Teams Mirror Painter Relationship Specialty Start Date End Date Shantanu Landeros MD [address] [place] [address] PCP - General 06/12/22 documented as of this encounter
--- OUTSIDE RECORDS SUMMARY | 2024-08-04 20:03 | XMS_ITS | Encounter Summary ---
Author Organization Healthcare Address [address] [place] [address] Care Team Providers Care Social Worker Delinquency Prevention Name Role Phone Shantanu Landeros MD Primary Care Provider [phone] Encounter Details Date Type Department Care Team (Latest Contact Info) Description 05/19/2023 Travel Social History Tobacco Use Types Packs/Day [...] and Family Not on file 02/27/2021 Attends Taoism Services Not on file 02/27 Active Member [...] Recorded Patient Health Questionnaire-2 Score 1 04/23/2023 [place] [place] of Occupat ional Health - Occupational Stress [...] place to sleep or slept in a fpc (including now)? 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
--- OUTSIDE RECORDS SUMMARY | 2024-08-04 20:03 | XMS_ITS | Encounter Summary ---
Author Organization Healthcare Address [address] [place] [address] Care Team Providers Care Actuarial Assistant Name Role Phone Shantanu Landeros MD Primary Care Provider [phone] Encounter Details Date Type Department Care Team (Latest Contact Info) Description 05/02/2023 Travel Social History Tobacco Use Types Packs/Day [...] and Family Not on file 02/27/2021 Attends Faith Services Not on file 02/27 Active Member [...] Recorded Patient Health Questionnaire-2 Score 1 04/23/2023 [place] of Occupat ional Health - Occupational Stress [...] place to sleep or slept in a group home (including now)? 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
--- OUTSIDE RECORDS SUMMARY | 2024-08-04 20:03 | XMS_ITS | Encounter Summary ---
Author Organization Healthcare Address [address] [place] [id number] Care Team Providers Care Open Hearth Laborer Name Role Phone Shantanu Landeros MD Primary Care Provider [phone] Encounter Details Date Type Department Care Team (Late st Contact Info) Description 05/30/2023 1:00 PM EDT Office Visit [facility] Plastic & Reconstructive Surgery [address] [place] [address] Dotty Villela, HEADER DOCK, DNP [address] [address] Encounter for postoperative care (Primary Dx) Social History Tobacco Use Types [...] and Family Not on file 02/27/2021 Attends Congregation Services Not on file 02/27 Active Member [...] Recorded Patient Health Questionnaire-2 Score 1 04/23/2023 [facility] - Occupational [...] place to sleep or slept in a jail (including now)? 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 Not on file Not on f ile documented as of this encounter Last Filed Vital Signs Vital Sign Reading Time Taken Comments Blood Pressure 112/79 05/30/2023 1:14 PM EDT Pulse 94 05/30/2023 1:14 PM EDT Temperature 36.9 ??C (98.4 ??F) 05/30/2023 1:14 PM ED T Respiratory Rate - - Oxygen Saturation 99% 05/30/2023 1:14 PM EDT Inhaled Oxygen Concentration - - Weight 77 kg (169 lb 12.8 oz) 05/30/2023 1:14 PM EDT Height 170.2 cm (5' 7 ) 05/30/2023 1:14 PM EDT Body Mass Index 26.59 05/30/2023 1:14 PM EDT documented in this encounter Miscellaneous Notes * Progress Notes - Dotty Villela, KHUSHI, SCARLET - 05/30/2023 1:00 PM EDT Subjective Patient ID: Betty ROACH is a 48 y.o. female s/p preparation of recipient wound bed of abdomen and split thickness skin graft from the right thigh donor to the abdomen on 05/14/2023. On 05/19, patient got bolster dressing wet in shower and new Mepilex was placed to right donor thighsite. Patient to clinic today for post operative follow up. Patient reports gradual healing of abdomen and R thigh donor site. Patient is eager to discuss whenshe can have hernia surgery with Dr. Ni. Review of Systems All other systems reviewed and are negative. Objective Visit Vitals BP 112/79 Pulse 94 Temp 36.9 ??C (98.4 ??F) Ht 1.702 m (5' 7 ) Wt 77 kg (169 lb 12.8 oz) SpO2 99% BMI 26.59 kg/m?? Physical Exam Constitutional: Appearance: Normal appearance. She is well-developed and normal weight. HENT: Head: Normocephalic and atraumatic. Right Ear: External ear normal. Left Ear: External ear normal. Nose: Nose normal. Mouth/Throat: Lips: [place]. Mouth: Mucous membranes are moist. Pharynx: Oropharynx is clear. Eyes: Conjunctiva/sclera: Conjunctivae normal. Pupils: Pupils are equal, round, and reactive to light. Neck: Vascular: No JVD. Cardiovascular: Rate and Rhythm: Normal rate and regular rhythm. Pulmonary: Effort: Pulmonary effort is normal. Breath sounds: Normal breath sounds. Abdominal: General: Bowel sounds are normal. There is no distension. Palpations: Abdomen is soft. Tenderness: There is no abdominal tenderness. There is no guarding. Comments: Abdominal skin graft moist, light pink in color Three small areas on upper part of skin graft, yellow in color; 75% skin graft take Musculoskeletal: General: Normal range of motion. Cervical back: Neck supple. Right lower leg: No edema. Left lower leg: No edema. Comments: R thigh with dry, flaking skin, various stages of healing, light pink to skin pigment Skin: General: Skin is warm and dry. Coloration: Skin is not pale. Neurological: General: No focal deficit present. Mental Status: She is alert and oriented to person, place, and time. Psychiatric: Mood and Affect: Mood normal. Behavior: Behavior normal. Judgment: Judgment normal. Assessment/Plan Diagnoses and all orders for this visit: Encounter for postoperative care Betty ROAHC is a 48 y.o. female s/p preparation of recipient wound bed of abdomen and split thickness skin graft from the right thigh donor to the abdomen on 05/14/2023. Abdominal STSG moist with healing skin graft. Patient to stop Adaptic and Bacitracin dressings. Okay to continue Bacitracin to small areas with limited STSG take. Donor site healed with dry, flaking skin - okay to take a shower. Instructed patient not submerge abdomen in water. Okay to put Aquaphor on donor site. Patient requested to follow up with Dr. Ni in 3 weeks for post operative follow up and to discuss when she can have hernia repair. Appointment made. Patient agreeable to plan of care. documented in this encounter Plan of Treatment Not on file documented as of this encounter Visit Diagnoses Diagnosis Encounter for postoperative care- Primary documented in this encounter Additional Health Concerns Assessment Noted Time A fall risk assessment has been complete d for the patient 05/30/2023 1:14 PM EDT A Body Mass Index follow-up plan has been documented for the patient 05/30/2023 2:17 PM EDT documented as of this encounter Care Teams Open Hearth Laborer Relationship Specialty Start Date End Date Shantanu Landeros MD [address] [place] [address] PCP - General 06/12/22 documented as of this encounter
--- OUTSIDE RECORDS SUMMARY | 2024-08-04 20:03 | XMS_ITS | Encounter Summary ---
Author Organization Healthcare Address [address] [place] [address] Care Team Providers Care Customer Complaint Service Supervisor Name Role Phone Shantanu Landeros MD Primary Care Provider [phone] Encounter Details Date Type Department Care Team (Latest Contact Info) Description 05/30/2023 Travel Social History Tobacco Use Types Packs/Day [...] and Family Not on file 02/27/2021 Attends Mu-Ism Services Not on file 02/27 Active Member [...] Recorded Patient Health Questionnaire-2 Score 1 04/23/2023 [facility] - Occupational Stress [...] slept in a half-way (including now)? 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
--- OUTSIDE RECORDS SUMMARY | 2024-08-04 20:03 | XMS_ITS | Encounter Summary ---
Author Organization Healthcare Address [address] [place] [address] Care Team Providers Care Bituminous Distributor Operator Name Role Phone Shantanu Landeros MD Primary Care Provider [phone] Reason for Referral * Consultation (Urgent) - Closed Specialty Diagnoses / Procedures Referred By Contac t Referred To Contact Diagnoses Periumbilical abdominal pain Micah Ni MD [address] [place] [phone] Phone: tel: fax: Isaac Boone MD [address] [address] Phone: tel: fax: Referral ID Status Reason Start Date Expiration Date V isits Requested Visits Authorized [id number] Closed Specialty Services Required 04/04/2023 10/03/2024 1 1 Scheduling Instructions Please scheduled with Dr. Boone for evaluation of abdominal hernia Reason for Visit * Consultation (Routine) - Closed Specialty Diagnoses / Procedures Referred By Contac t Referred To Contact Plastic Surgery Diagnoses Incisional hernia Ruby Muse PA [address] [place] [address] Phone: tel: fax: Referral ID Status Reason Start Date Expiration Date V isits Requested Visits Authorized [id number] Closed Specialty Services Required 05/21/2022 11/20/2023 1 1 Encounter Details Date Type Department Care Team (Late st Contact Info) Description 04/04/2023 9:15 AM EDT Consult [facility] Plastic & Reconstructive Surgery [address] [place] [address] Micah Ni MD [address] [place] [address] Periumbilical abdominal pain (Primary Dx) Social History Tobacco Use Types Packs/Day Years Used Date Smoking Tobacco: Former Cigarettes 1 32 Tobacco Cessation:Counseling Given: Not Answered Alcohol Use Standard Drinks/Week Comments Yes 21 (1 standard drink = 0.6 oz pure alcohol) 3 airplane bottles/day on weekdays; 6 airplane bottles/day on weekends Social Connection and Isolation Panel [NHANES] A nswer Date Recorded Frequency of Communication with Friends and Fami ly Not on file 02/27/2021 Frequency of Social Gatherings with Friends and Family Not on file 02/27/2021 Attends Scientologist Services Not on file 02/27 Active Member [...] Recorded Patient Health Questionnaire-2 Score 2 02/27/2021 [facility] - Occupational Stress [...] place to sleep or slept in a nursing home (including now)? 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 Not on file Not on f ile documented as of this encounter Last Filed Vital Signs Vital Sign Reading Time Taken Comments Blood Pressure 88/59 04/04/2023 9:40 AM EDT Pulse 97 04/04/2023 9:40 AM EDT Temperature 36.2 ??C (97.2 ??F) 04/04/2023 9:40 AM ED T Respiratory Rate - - Oxygen Saturation 100% 04/04/2023 9:40 AM EDT Inhaled Oxygen Concentration - - Weight 74.2 kg (163 lb 8 oz) 04/04/2023 9:40 AM EDT Height 170.2 cm (5' 7 ) 04/04/2023 9:40 AM EDT Body Mass Index 25.61 04/04/2023 9:40 AM EDT documented in this encounter Miscellaneous Notes * Progress Notes - Xavier Pablo MD - 04/04/2023 9:15 AM EDT HISTORY OF PRESENT ILLNESS This is an initial consultation with this 48 y.o. year old female seen today at the request of Shantanu Durham MD and/or Ruby Muse [address] [place] [address] evaluation of an abdominal wound. The patient has a complex surgical history. In 2020, she developed an ovarian abscess. She underwent surgical interventions at an outside hospital. 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 She also has a history of alcoholism. She has been in remission for approximately 7 months. She denies any nicotine use. Since her surgery, she reports having a periumbilical wound that would not heal. She is currently applying Bactroban and Tegaderm once daily. She reports continued abdominalpain. She reports having an abdominal hernia. She reports back pain. She reports having normal bowel movements. She reports going to [facility] 2 weeks ago for severe abdominal pain. She reports undergoing a CT scan of the abdomen and pelvis with IV contrast. She is eager to have the woundclosed and her hernia repaired. She denies any fevers or chills. She reports severe depression relat ed to this. She denies any suicidal ideation PAST MEDICAL HISTORY Updated and documented in EMR, reviewed during this appointment. Past Medical History: Diagnosis Date Alcohol abuse Alcohol withdrawal delirium (CMS/HCC) Anxiety 03/19/2018 COVID-19 09/23/2021 Depression Essential hypertension 03/19/2018 Insomnia PAST SURGICAL HISTORY Updated and documented in EMR, reviewed during this appointment Past Surgical History: Procedure Laterality Date SECTION, LOW TRANSVERSE EXPLORATORY LAPAROTOMY 09/12/2021 evacuation of tubo-ovarian abscess CURRENT MEDICATIONS Current Outpatient Medications: naltrexone (ReVia) 50 MG tablet, Take 1 tablet (50 mg) by mouth every night., Disp: , Rfl: PARoxetine (Paxil) 40 MG tablet, Take 1 tablet (40 mg) by mouth 1 (one) time each day in the morning., Disp: , Rfl: QUEtiapine (SEROquel) 100 MG tablet, Take 1 tablet (100 mg) by mouth every night., Disp: , Rfl: QUEtiapine (SEROquel) 50 MG tablet, Take 1 tablet (50 mg) by mouth every night., Disp: , Rfl: lisinopril 10 MG tablet, Take 1 tablet (10 mg total) by mouth 1 (one) time each day., Disp: 30 tablet, Rfl: 11 nicotine (Nicoderm CQ) 21 MG/24HR patch, Place 1 patch on the skin 1 (one) time each day., Disp: 30patch, Rfl: 0 ALLERGIES Hydrocodone-acetaminophen, Oxycodone-acetaminophen, and Sulfadiazine SOCIAL HISTORY Social History Socioeconomic History Marital status: Legally Spouse name: Not on file Number of children: 5 Years of education: Some College Highest education level: Not on file 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 Tobacco Use Smoking status: Former Packs/day: 1.00 Years: 32.00 Total pack years: 32.00 Types: Cigarettes Smokeless tobacco: Not on file Substance and Sexual Activity Alcohol use: Yes Alcohol/week: 21.0 - 30.0 standard drinks of [...] on file Stress: Stress Concern Present (02/27/2021) [facility] - Occupational Stress Questionnaire Feeling of Stress : Very much Social Connections: Unknown (02/27/2021) Social Connection and Isolation Panel [NHANES] Frequency of Communication with Friends and Family: Not on file Frequency of Social Gatherings with Friends and Family: Not on file Attends Scientologist Services: Not on file Active Member of [...] Unstable Housing in the Last Year: No FAMILY HISTORY Family history is as noted on the history intake form which was reviewed and scanned into [facility]. Negative for bleeding disorders, clotting disorders or anesthesia issues. SYSTEMS REVIEW A complete 14 point review of systems was discussed with the patient at this time and was negative except as noted in the HPI. PHYSICAL EXAMINATION Vital Signs: Vitals: 04/04/23 0940 BP: 88/59 Pulse: 97 Temp: 36.2 ??C (97.2 ??F) TempSrc: Temporal SpO2: 100% Weight: 74.2 kg (163 lb 8 oz) Height: 1.702 m (5' 7 ) Body mass index is 25.61 kg/m??. GEN: Healthy appearing, alert, no acute distress SKIN: Normal color, texture; no rashes or lesions HEENT: Normocephalic, no signs of trauma, anicteric, neck with normal ROM PULM: Normal respiratory effort on room air, no audible stridor or wheeze CV: Regular rate and rhythm, palpable radial pulses GI: Abdomen is soft, nontender and nondistended. Large midline abdominal wound with healthy granulation tissue. Nonreducible hernia present in the right abdomen PSYCH: Pleasant and normal affect NEURO: Alert and oriented x 3. Cranial nerves grossly intact, speech intact LYMPH: No palpable lymphadenopathy EXTREMITY: No cyanosis, clubbing, or edema. LYMPH: No palpable lymphadenopathy IMPRESSION/PLAN 48-year-old female presenting with the above issues for evaluation. We had an extensive conversation with the patient regarding the process to address her issues. We discussed that a referral to Dr. Boone who is the hernia specialist here at will be made. We discussed that more than likely, Dr. Boone may desire temporary coverage of the wound with a skin graft prior to consideration for surgicalintervention. We discussed that eventually, the skin graft would be removed whenever the hernia is repaired. We discussed obtaining the CT recently performed in [facility] for evaluation. The patient will also be referred to our laboratory for nutritional labs, CBC and a CMP given her history of al coholism. We discussed continuation of Bactroban and gauze to the abdominal wound twice daily. Patient will be seen in our clinic in 6 weeks or sooner if to discuss the steps moving forward. The patient indicates understanding of these instructions and agrees with the plan Cosigned by Micah Ni MD at 04/04/2023 1:31 PM EDT Associated attestation - Micah Ni MD - 04/04/2023 1:31 PM EDT I saw and evaluated the patient with the resident/fellow. I discussed the case with the resident/fellow and agree with the findings and plan as documented. documented in this encounter Plan of Treatment Scheduled Orders Name Type Priority Associated Diagnoses Orde r Schedule CBC and Differential Lab Routine Periumbilical abdominal pain 1 Occurrences starting 04/04/2023 until 10/05/2024 Prealbumin Lab Routine Periumbilical abdominal pain 1 Occurrences starting 04/04/2023 until 10/05/2024 Albumin Lab Routine Periumbilical abdominal pain 1 Occurrences starting 04/04/2023 until 10/05/2024 Comprehensive metabolic panel Lab Routine Periumbilical abdominal pain 1 Occurrences starting 04/04/2023 until 10/05/2024 Scheduled Referrals Name Type Priority Associated Diagnoses Order Schedule Ambulatory referral to General Surgery ([facility]) Outpatient Referral Routine Periumbilical abdominal pain 1 Occurrences starting 04/04/2023 until 10/05/2024 documented as of this encounter Visit Diagnoses Diagnosis Periumbilical abdominal pain- Primary Abdominal pain, periumbilic documented in this encounter Additional Health Concerns Assessment Noted Time A Body Mass Index follow-up plan has been documented for the patient 04/05/2023 8:15 AM EDT documented as of this encounter Care Teams Bituminous Distributor Operator Relationship Specialty Start Date End Date Shantanu Landeros MD [address] [place] [address] PCP - General 06/12/22 documented as of this encounter
--- OUTSIDE RECORDS SUMMARY | 2024-08-04 20:03 | XMS_ITS | Encounter Summary ---
Author Organization Healthcare Address [address] [place] [address] Care Team Providers Care Design Assembler Name Role Phone Shantanu Landeros MD Primary Care Provider [phone] Reason for Visit * Auth/Cert (Routine) Specialty Diagnoses / Procedures Referred By Carla t Referred To Contact Diagnoses Open wound of abdominal wall, subsequent encounter Open wound of abdominal wall, subsequent encounter [S31.109D] Procedures IL SPLIT GRFT TRUNK,ARM,LEG <100 SQCM IL SPLIT GRFT,TRUNK,ARM,LEG EA 100 SQCM DEBRIDEMENT, WITH SPLIT-THICKNESS SKIN GRAFT APPLICATION; abdomen Micah Ni MD [address] [place] [address] Phone: tel: fax: [facility] S Operating Room [address] [place] [address] Phone: tel: Referral ID Status Reason Start Date Expiration Date Visits Re quested Visits Authorized [id number] 1 1 Encounter Details Date Type Department Care Team (Late st Contact Info) Description 05/14/2023 10:35 AM EDT - 05/14/2023 11:55 AM EDT Surgery [facility] S Operating Room [address] [place] [address] Micah Ni MD [address] [place] [address] DEBRIDEMENT, WITH SPLIT-THICKNESS SKIN GRAFT APPLICATION; abdomen Surgery Details Date/Time Status Location OR Service Patient Class Case Class Case Type Trauma Case? 05/14/2023 10:35 AM Posted [facility] Outpatient Surgery E-Electi ve Panel 1 Procedure [facility] Anes Op Region Wound Class Comments DEBRIDEMENT, WITH SPLIT-THIC KNESS SKIN GRAFT APPLICATION; abdomen Bilateral General Surgeon Surgeon Role Service Panel Micah Ni MD Primary Plastic Surgery 1 Corine Keys MD Resident - Assisting Plastic Akash fanta 1 Special Needs patient will require wound vac following OR documented in this encounter Social History Tobacco [...] and Family Not on file 02/27/2021 Attends Taoist Services Not on file 02/27 Active Member [...] Recorded Patient Health Questionnaire-2 Score 1 04/23/2023 [facility] [place] [facility] - Occupational Stress [...] to sleep or slept in a senior living (including now)? 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 Tobacco Use Smoking status: Former Packs/day: 1.00 [...] on file Stress: Stress Concern Present (02/27/2021) [facility] [place] [facility] - Occupational Stress Questionnaire Feeling of Stress : Very much Social Connections: Unknown (02/27/2021) Social Connection and Isolation Panel [NHANES] Frequency of Communication with Friends and Family: Not on file Frequency of Social Gatherings with Friends and Family: Not on file Attends Taoist Services: Not on file Active Member of [...] C 35.7 C Resp 15 - 15 - - - Height (cm) - 170.2 [...] card, photo ID, along with power of disability attorney, guardianship or advanced directives if applicable [...] hernia without mention of obstruction or gangrene Open wound of abdominal wall, subsequent encounter documented in this encounter Admitting Diagnoses Diagnosis Open abdominal wall wound documented in this encounter Administered Medications Inactive Administered Medications - up to 3 most recent administrations Medication Order MAR Action Action Date Dose Rate Site bupivacaine-EPINEPHrine PF (Marcaine w/EPI) 0.25% -1:241619 injection As needed, Starting on Fri05/14/23 at 1014, Until Fri05/14/23 at 1030, Routine, Intraprocedure Given 05/14/2023 10:14 AM EDT 10 mL Right Outer Thigh famotidine PF (Pepcid) injection 20 mg 20 [...] (Given - Provid er: Dotty Lan RN) lactated Ringer's infusion (COMPLETED) 100 mL/hr, Intravenous, Once, 1 dose, On Fri05/14/23 at 0745, Routine 0822 (New Bag - Prov ider: Dotty Lan RN) lactated Ringer's infusion 20 mL/hr, Intravenous, Once, [...] 05/13/2023 05/14/2023 bupivacaine-EPINEPHrine PF (Marcaine w/EPI) 0.25% -1:[id number] injection (CANCELED) As needed, Starting on Fri05/14/23 [...] documented as of this encounter Care Teams Design Assembler Relationship Specialty Start Date End Date Shantanu Landeros MD [address] [place], [place] [id number] PCP - General 06/12/22 documented as of this encounter
--- OUTSIDE RECORDS SUMMARY | 2024-08-04 20:03 | XMS_ITS | Encounter Summary ---
Author Organization [facility] Address [address] [place] [address] Care Team Providers Care Fly Maker Name Role Phone Shantanu Landeros MD Primary Care Provider [phone] Encounter Details Date Type Department Care Team (Late st Contact Info) Description 06/26/2023 Telephone ID Clinic General Surgery [address] [place] [id number] Malathi Cotter [facility] [address] [place] [address] Social History Tobacco Use Types Packs/Day Years [...] and Family Not on file 02/27/2021 Attends Buddhism Services Not on file 02/27 Active Member [...] Recorded Patient Health Questionnaire-2 Score 1 04/23/2023 [facility] - Occupational [...] 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 documented in this encounter Plan of Treatment Not on file documented as of this encounter Visit Diagnoses Not on filedocumented in this encounter Additional Health Concerns Assessment Noted Time A fall risk assessment has been complete d for the patient 05/30/2023 1:14 PM EDT A Body Mass Index follow-up plan has been documented for the patient 06/20/2023 12:19 PM EDT documented as of this encounter Care Teams Fly Maker Relationship Specialty Start Date End Date Shantanu Landeros MD [address] [place] [address] PCP - General 06/12/22 documented as of this encounter
--- OUTSIDE RECORDS SUMMARY | 2024-08-04 20:03 | XMS_ITS | Encounter Summary ---
Author Organization Healthcare Address [facility] [place] [id number] Care Team Providers Care Fisher Trap Name Role Phone Shantanu Landeros MD Primary Care Provider [phone] Encounter Details Date Type Department Care Team (Late st Contact Info) Description 03/16/2023 Orders Only External Location [address] [place] [address] Christian Anderson, VALENTIN [address] [place] [address] Social History Tobacco Use Types Packs/Day Years Used Date Smoking Tobacco: Every Day Cigarettes 1 32 Alcohol Use Standard Drinks/Week [...] Recorded Patient Health Questionnaire-2 Score 2 02/27/2021 [facility] of Occupat ional [...] slept in a penitentiary (including now)? 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 Not on file Not on f ile documented as of this encounter Plan of Treatment Not on file documented as of this encounter Procedures Procedure Name Priority Date/Time Associated Diagnosis Comments CT ABDOMEN PELVIS W IV CONTRAST 03/16/2023 10:23 PM EDT documented in this encounter Results * CT Abdomen Pelvis w IV Contrast (03/16/2023 10:23 PM EDT) Anatomical Region Laterality Modality Abdomen, Pelvis Computed Tomogra phy 03/16/2023 10:2 3 PM EDT [address] PROCEDURES Final Result documented in this encounter Visit Diagnoses Not on filedocumented in this encounter Care Teams Fisher Trap Relationship Specialty Start Date End Date Shantanu Landeros MD [address] [place] [address] PCP - General 06/12/22 documented as of this encounter
--- OUTSIDE RECORDS SUMMARY | 2024-08-04 20:03 | XMS_ITS | Encounter Summary ---
Author Organization Healthcare Address [address] [place] [address] Care Team Providers Care Survey Research Manager Name Role Phone Shantanu Landeros MD Primary Care Provider [phone] Encounter Details Date Type Department Care Team (Latest Contact Info) Description 04/23/2023 Travel Social History Tobacco Use Types Packs/Day [...] Recorded Patient Health Questionnaire-2 Score 1 04/23/2023 [facility] - Occupational Stress [...] slept in a detention (including now)? 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
--- OUTSIDE RECORDS SUMMARY | 2024-08-04 20:03 | XMS_ITS | Encounter Summary ---
Author Organization Healthcare Address [address] [place], [place] [id number] Care Team Providers Care Independent Agent Music Education Name Role Phone Shantanu Landeros MD Primary Care Provider [phone] Encounter Details Date Type Department Care Team (Late st Contact Info) Description 06/20/2023 11:30 AM EDT Office Visit [facility] [address] [place] [address] Micah Ni MD [address] [address] Encounter for postoperative care (Primary Dx) Social [...] and Family Not on file 02/27/2021 Attends Christianity Services Not on file 02/27 Active Member [...] Recorded Patient Health Questionnaire-2 Score 1 04/23/2023 [facility] Occupat ional [facility] - Occupational Stress Questionnaire Answer Date [...] place to sleep or slept in a skilled nursing (including now)? 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 on file Not on f ile documented as of this encounter Last Filed Vital Signs Vital Sign Reading Time Taken Comments Blood Pressure 105/80 06/20/2023 11:49 AM EDT Pulse 97 06/20/2023 11:49 AM EDT Temperature 36.6 ??C (97.8 ??F) 06/20/2023 1 1:49 AM EDT Respiratory Rate - - Oxygen Saturation 99% 06/20/2023 11: 49 AM EDT Inhaled Oxygen Concentration - - Weight 77.5 kg (170 lb 12.8 oz) 023 11:49 AM EDT Height - - Body Mass Index 26.75 05/30/2023 1:14 PM EDT documented in this encounter Miscellaneous Notes * Progress Notes - Shannon Jhaveri APRN - 06/20/2023 11:30 AM EDT Subjective Patient ID: Betty ROACH is a 48 y.o. female. HPI Betty ROACH is a 48 y.o. female s/p preparation of recipient wound bed of abdomen and split thickness skin graft from the right thigh donor to the abdomen on 05/14/2023. Review of Systems All other systems reviewed and are negative. Objective Visit Vitals BP 105/80 Pulse 97 Temp 36.6 ??C (97.8 ??F) (Temporal) Wt 77.5 kg (170 lb 12.8 oz) SpO2 99% BMI 26.75 kg/m?? Physical Exam Vitals reviewed. Pulmonary: Effort: Pulmonary effort is normal. Abdominal: Comments: Abd:STSG well healed Skin: Capillary Refill: Capillary refill takes less than 2 seconds. Comments: Right thigh donor site well healed Neurological: Mental Status: She is alert and oriented to person, place, and time. Psychiatric: Mood and Affect: Mood normal. Assessment/Plan Diagnoses and all orders for this visit: Encounter for postoperative care Betty ROACH is a 48 y.o. female s/p preparation of recipient wound bed of abdomen and split thickness skin graft from the right thigh donor to the abdomen on 05/14/[address] Ni. We discussed with the patient that Dr. Boone will need to wait an average of 4 months from the time of the STSG placement before he proceed with surgery. Patient to follow up with our clinic as needed. Okay for patient to schedule follow up with Dr. Boone. Patient agreeable to plan of care. documented [...] documented as of this encounter Care Teams Independent Agent Music Education Relationship Specialty Start Date End Date Shantanu Landeros MD [address] [place], [place] [id number] PCP - General 06/12/22 documented as of this encounter
--- OUTSIDE RECORDS SUMMARY | 2024-08-04 20:03 | XMS_ITS | Encounter Summary ---
Author Organization Healthcare Address [address] [id number] Care Team Providers Care Farm Equipment Engine Mechanic Name Role Phone Shantanu Landeros MD Primary Care Provider [phone] Reason for Visit * Reason Comments Hernia * Consultation (Urgent) - Closed Specialty Diagnoses / Procedures Referred By Contac t Referred To Contact Diagnoses Periumbilical abdominal pain Micah Ni MD [address] [address] Phone: tel: fax: Isaac Boone MD [address] [address] Phone: tel: fax: Referral ID Status Reason Start Date Expiration Date V isits Requested Visits Authorized [id number] Closed Specialty Services Required 04/04/2023 10/03/2024 1 1 Encounter Details Date Type Department Care Team (Late st Contact Info) Description 04/23/2023 8:30 AM EDT Office Visit [facility] General Surgery [address], [address] [place] [address] Isaac Boone MD [address] [address] Ventral hernia without obstruction or gangrene (Primary Dx); Periumbilical abdominal pain; Superficial disruption or dehiscence of operation wound, initial encounter Social History Tobacco Use Types Packs/Day [...] and Family Not on file 02/27/2021 Attends Gnosticism Services Not on file 02/27 Active Member [...] Recorded Patient Health Questionnaire-2 Score 1 04/23/2023 [facility] of Occupat ional Health - Occupational Stress [...] place to sleep or slept in a custodial (including now)? 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 on file Not on f ile documented as of this encounter Last Filed Vital Signs Vital Sign Reading Time Taken Comments Blood Pressure 140/84 04/23/2023 8:13 AM EDT Pulse 84 04/23/2023 8:13 AM EDT Temperature 36.3 ??C (97.3 ??F) 04/23/2023 8:13 AM ED T Respiratory Rate - - Oxygen Saturation - - Inhaled Oxygen Concentration - - Weight 76.5 kg (168 lb 11.2 oz) 04/23/2023 8:13 AM EDT Height 170.2 cm (5' 7 ) 04/23/2023 8:13 AM EDT Body Mass Index 26.42 04/23/2023 8:13 AM EDT documented in this encounter Miscellaneous Notes * Progress Notes - Lester Connors - 04/23/2023 8:30 AM EDT Subjective Betty ROACH is a 48 y.o. female presenting in Consultation for open wound, umbilical hernia from Dr. Ni, plastic surgery. She underwent an exploratory laparotomy in August 2021 for an ovarian abscess at an outside hospital. 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 Shedenies any current nicotine use but did previously smoke cigarettes. Since her surgery, she reportsa periumbilical wound that will not heal and continued abdominal pain. She also reports back pain. S he states that she wants her hernia repaired and wound closed as soon as possible. Patient notes a painful abdominal bulge in the lower midline area. Currently experiencing pain. Currently denies symptoms of bowel changes, constipation, nausea, vomiting, diarrhea, fevers, and chills. Prior Ventral hernia repair: No Recent testing: CT scan - CT ABDOMEN PELVIS W IV CONTRAST performed at outside hospital. I personally reviewed CTA imaging, interpreting ventral hernia. Outside medical records reviewed and commented on above. Body mass index is 26.42 kg/m??. Former smoker over 4 weeks Past Medical History: Diagnosis Date Alcohol abuse Alcohol withdrawal delirium (CMS/HCC) Anxiety 03/19/2018 COVID-19 09/23/2021 Depression Essential hypertension 03/19/2018 Insomnia Past Surgical History: Procedure Laterality Date SECTION, [...] (one) time each day. 30 tablet 11 No current facility-administered medications for this visit. Allergies Allergen Reactions Hydrocodone-Acetaminophen Itching and Nausea Only Oxycodone-Acetaminophen Itching and Nausea Only Tolerated dose with po benadryl Sulfadiazine Other Review of Systems HENT: Negative. Eyes: Negative. Respiratory: Negative. Cardiovascular: Negative. Gastrointestinal: Positive for abdominal pain. Negative for abdominal distention, constipation, diarrhea, nausea and vomiting. Endocrine: Negative. Genitourinary: Negative. Musculoskeletal: Negative. Skin: Negative. Neurological: Negative. Hematological: Negative. Psychiatric/Behavioral: Negative. Objective Visit Vitals BP (!) 140/84 (BP Location: Right arm, Patient Position: Sitting) Pulse 84 Temp 36.3 ??C (97.3 ??F) (Temporal) Ht 1.702 m (5' 7 ) Wt 76.5 kg (168 lb 11.2 oz) BMI 26.42 kg/m?? Physical Exam Constitutional: in mild distress Eyes: equal, round, and reactive Ears, Nose, Throat: normal atraumatic, no neck masses Respiratory: Normal Effort, Normal Rate Cardiac: Heart regular rate and rhythm Abdomen: Soft, non-tender; no organomegaly or masses. Skin: hernia visible- ventral Tenderness: RUQ, RLQ, periumbilical, and suprapubic Hernias: ventral hernia. Large midline abdominal wound with healthy granulation tissue covered withTegaderm. Genitourinary: not indicated Musculoskeletal: normal strength, tone, and muscle mass, no deformities, ROM of all joints is normal, joint mobility appears intact Psychiatric: oriented to time, place and person Neurologic: motor intact and no focal deficits Skin: [place], warm, well perfused. Assessment/Plan Problem List Items Addressed This Visit Nervous Periumbilical abdominal pain Musculoskeletal Superficial dehiscence of operation wound Other Ventral hernia - Primary Patient is a 48 y.o. female presenting with large midline abdominal wound with ventral hernia. Dr. Micah Ni with Plastic surgery consulted for evaluation and possible skin graft over midline abdominal wound prior to hernia repair. - Recommended wearing an abdominal binder. - Recommended skin grafting and follow-up with Dr. Ni to discuss. - Discussed lifting restrictions. Cosigned by Isaac Boone MD at 04/24/2023 4:26 PM EDT Associated attestation - Isaac Boone MD - 04/24/2023 4:26 PM EDT I saw and evaluated the patient with the medical/PLUMBING ASSEMBLER INSTALLER/PA student. I discussed the case with the medical/PLUMBING ASSEMBLER INSTALLER/PA student and agree with the findings and plan as documented. I personally performed the Examand Medical Decision Making. Needs STSG to allow inflammatory process surrounding bowel to resolve. Loops of intesting below wound would likely necessitate multiple bowel resections if we proceeded with exploration currently. Discussed at length with patient. Discussed binder at all times. Discussed risk for EC fistula. She is aware this may be 6 mos or longer prior to being ready for hernia repair. documented in this encounter Plan of Treatment Not on file documented as of this encounter Visit Diagnoses Diagnosis Ventral hernia without obstruction or gangrene- Primary Unspecified ventral hernia without mention of obstruction or gangrene Periumbilical abdominal pain Abdominal pain, periumbilic Superficial disruption or dehiscence of operation wound, initial encounter documented in this encounter Additional Health Concerns Assessment Noted Time A Body Mass Index follow-up plan has been documented for the patient 04/24/2023 4:26 PM EDT documented as of this encounter Care Teams Farm Equipment Engine Mechanic Relationship Specialty Start Date End Date Shantanu Landeros MD [address] [place] [address] PCP - General 06/12/22 documented as of this encounter
--- OUTSIDE RECORDS SUMMARY | 2024-08-04 20:03 | XMS_ITS | Encounter Summary ---
Author Organization Healthcare Address [address] [id number] Care Team Providers Care Principal Web Developer Name Role Phone Shantanu Landeros MD Primary Care Provider [phone] Reason for Visit * Reason Onset Date Comments HCN Clinical Concern/Question 04/04/2023 Encounter Details Date Type Department Care Team (Late st Contact Info) Description 04/04/2023 Telephone [facility] General Surgery [address], [address] [place] [address] Isaac Boone MD [facility] [address] HCN Clinical Concern/Question Social History [...] and Family Not on file 02/27/2021 Attends [employer] Services Not on file 02/27 Active Member [...] Recorded Patient Health Questionnaire-2 Score 2 02/27/2021 [facility] - Occupational Stress Questionnaire Answer Date Recorded [...] slept in a [facility]cc (including now)? 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 Boone and requesting joint surgery with him. Best contact number: [phone] (mobile) Optimal time of day to reach caller: ANYTIME Additional comments/information from caller: None Note: Please do not reply to this message. Follow-up communication and further actions as a result of this message need to be communicated with the patient directly, if the patient is not active onMyChart. If the patient is active on MyChart, they will receive notification of the communication/outcome via People and Pages. documented in this encounter Plan of Treatment Not on file documented as of this encounter Visit Diagnoses Not on filedocumented in this encounter Additional Health Concerns Assessment Noted Time A Body Mass Index follow-up plan has been documented for the patient 04/05/2023 8:15 AM EDT documented as of this encounter Care Teams Principal Web Developer Relationship Specialty Start Date End Date Shantanu Landeros MD [address] [place] [address] PCP - General 06/12/22 documented as of this encounter
--- OUTSIDE RECORDS SUMMARY | 2024-08-04 20:03 | XMS_ITS | Encounter Summary ---
Author Organization Healthcare Address [address] [id number] Care Team Providers Care Vat Overhauler Name Role Phone Tapestry, General External Provider Primary C are Provider Shantanu Landeros MD Primary Care Provider [phone] Encounter Details Date Type Department Care Team ([facility] st Contact Info) Description 05/21/2022 Orders Only External Location [address] [place] [address] Provider, External Social History Tobacco Use Types [...] Recorded Patient Health Questionnaire-2 Score 2 02/27/2021 [facility] of Occupat ional Health - Occupational Stress [...] place to sleep or slept in a [place] facility (including now)? 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 on file Not on f ile documented as of this encounter Plan of Treatment Not on file documented as of this encounter Procedures Procedure Name Priority Date/Time Associated Diagnosis Comments CT ABDOMEN PELVIS WO IV CONTRAST 05/21/2022 10:27 AM EDT documented in this encounter Results * CT Abdomen Pelvis wo IV Contrast (05/21/2022 10:27 AM EDT) Anatomical Region Laterality Modality Abdomen, Pelvis Computed Tomogra phy 05/21/2022 10:2 7 AM EDT us External Provider IMG CT PROCEDURES Final Result documented in this encounter Visit Diagnoses Not on filedocumented in this encounter Care Teams Vat Overhauler Relationship Specialty Start Date End Date Tapestry, General External ProviderMD [address] [place] [address] PCP - General Social Services Director 02/26/21 06/11/22 Shantanu Landeros MD [address] [place] [address] PCP - General 06/12/22 documented as of this encounter
--- OUTSIDE RECORDS SUMMARY | 2024-08-04 20:03 | XMS_ITS | Encounter Summary ---
Author Organization Healthcare Address [address] [place], [place] [address] Care Team Providers Care Poultry Farmer Egg Name Role Phone Shantanu Landeros MD Primary Care Provider [phone] Reason for Visit * Reason Onset Date Comments HCN - Patient Message 06/26/2023 Requesting a sooner appt with Dr Boone Encounter Details Date Type Department Care Team (Late st Contact Info) Description 06/26/2023 Telephone [facility]astic [facility] Re[facility]ive Surgery [address] [place] [address] Micah Ni MD [address] [address] HCN - Patient Message (Requesting a sooner appt with Dr Boone) Social History Tobacco Use Types Packs/Day Years [...] and Family Not on file 02/27/2021 Attends Catholic Services Not on file 02/27 Active Member [...] Recorded Patient Health Questionnaire-2 Score 1 04/23/2023 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 Ni it is necessary to wait the [address] Boone. Let her know she can also wear spanks for added support. * Telephone Encounter - Sandi Liao LPN - 07/01/2023 12:56 PM EDT Attempted to call patient back, no answer, left a voice mail to call back. * Telephone Encounter - Sandi Liao LPN - 07/01/2023 12:28 PM EDT Email sent to Dr. Ni and team * Telephone Encounter - Moraima Griffin - 06/30/2023 4:48 PM EDT Patient Phone Message Reason for Call: Pt requesting a return call please. Best contact number and optimal time of day to reach caller: [phone] Note: Please do not reply to this message. Follow-up communication and further actions as a result of this message need to be communicated with the patient directly, if the patient is not active onMyChart. If the patient is active on MyChart, they will receive notification of the communication/outcome via MyChart. * Telephone Encounter - Sandi Liao LPN - 06/30/2023 4:46 PM EDT Attempted to call patient, no answer, unable to leave a message. * Telephone Encounter - Moraima Griffin - 06/27/2023 3:42 PM EDT Patient Phone Message Reason for Call: Pt requesting a return call regarding feeling like her guts are falling out and being in a lot ofdiscomfort Best contact number and optimal time of day to reach caller: [phone] Note: Please do not reply to this message. Follow-up communication and further actions as a result of this message need to be communicated with the patient directly, if the patient is not active onMyChart. If the patient is active on MyChart, they will receive notification of the communication/outcome via MyChart. * Telephone Encounter - Sandi Liao LPN - 06/27/2023 3:25 PM EDT Attempted to return call to patient, no answer, left a voice mail to let patient know per last office note with Dr. Ni she will need to wait 4 months before she has surgery with Dr. Boone. * Telephone Encounter - Moraima Griffin - 06/26/2023 8:56 AM EDT Patient Phone Message Reason for Call: Pt states she was told that if someone from plastics called Dr Boone then she would be able to get in for a sooner appt than 08/20 Best contact number and optimal time of day to reach caller: [phone] Note: Please do not reply to this [...] documented as of this encounter Care Teams Poultry Farmer Egg Relationship Specialty Start Date End Date Shantanu Landeros MD [address] [id number] PCP - General 06/12/22 documented as of this encounter
--- OUTSIDE RECORDS SUMMARY | 2024-08-04 20:03 | XMS_ITS | Encounter Summary ---
Author Organization Healthcare Address [address] [place] [address] Care Team Providers Care Physical Integration Practitioner Name Role Phone Tapestry, General External Provider Primary C are Provider Encounter Details Date Type Department Care Team (Latest Contact Info) Description 01/23/2022 Travel Social History Tobacco Use Types Packs/Day [...] and Family Not on file 02/27/2021 Attends Bahai Services Not on file 02/27 Active Member [...] Recorded Patient Health Questionnaire-2 Score 2 02/27/2021 [facility] of Occupat ional Health - Occupational Stress [...] slept in a residential (including now)? 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 No / Unsure 01/23/2022 12:07 PM EDT documented as of this encounter Plan of Treatment Not on file documented as of this encounter Visit Diagnoses Not on filedocumented in this encounter Care Teams Physical Integration Practitioner Relationship Specialty Start Date End Date Tapestry, General External Provider, [address] [place] [id number] PCP - General Muffle Operator 02/26/21 06/11/22 documented as of this encounter
--- OUTSIDE RECORDS SUMMARY | 2024-08-04 20:03 | XMS_ITS | Encounter Summary ---
Author Organization Healthcare Address [address] [id number] Care Team Providers Care Staffing Recruiter Name Role Phone Tapestry, General External Provider Primary C are Provider Shantanu Landeros MD Primary Care Provider [phone] Encounter Details Date Type Department Care Team ([facility] st Contact Info) Description 02/11/2022 Orders Only External Location [address] [place] [address] Provider, External Social History Tobacco Use Types [...] Recorded Patient Health Questionnaire-2 Score 2 02/27/2021 [facility] of Occupat ional Health - Occupational [...] a senior care (including now)? 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 Not on file Not [...] Comments CT ABDOMEN PELVIS WO IV CONTRAST 02/11/2022 5:36 PM EDT documented in this encounter Results * CT Abdomen Pelvis wo IV Contrast (02/11/2022 5:36 PM EDT) Anatomical Region Laterality Modality Abdomen, Pelvis Computed Tomogra phy 02/11/2022 5:36 PM EDT us External Provider IMG CT PROCEDURES Final Result documented in this encounter Visit Diagnoses Not on filedocumented in this encounter Care Teams Staffing Recruiter Relationship Specialty Start Date End Date Tapestry, External ProviderMD [address] [place] [address] PCP - General Patrol Sergeant 02/26/21 06/11/22 Shantanu Landeros MD [address] [place] [address] PCP - General 06/12/22 documented as of this encounter
--- OUTSIDE RECORDS SUMMARY | 2024-08-04 20:03 | XMS_ITS | Encounter Summary ---
Author Organization Healthcare Address [address] [id number] Care Team Providers Care Clinical Research Physician Name Role Phone Shantanu Landeros MD Primary Care Provider [phone] Reason for Visit * Reason Onset Date Comments HCN Clinical Concern/Question 06/24/2023 Encounter Details Date Type Department Care Team (Late st Contact Info) Description 06/24/2023 Telephone [facility] General Surgery [address], [address] [place] [address] Isaac Phillips MD [facility] [phone] HCN Clinical Concern/Question Social History [...] Recorded Patient Health Questionnaire-2 Score 1 04/23/2023 [facility] of Occupat ional Health - Occupational Stress [...] slept in a usp (including now)? 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 * Telephone Encounter - Dawna Cartagena - 06/24/2023 2:52 PM EDT Clinical Concern/Question Reason for Call: patient calling to make an appt with dr phillips, she had her skin graft done with plastics and is supposed to fu after that. Patient is in pain and asking for sooner appt than August contact number: [phone] (home) Optimal time of day to reach caller: ANYTIME Additional comments/information from caller: None Note: Please do not reply to this message. Follow-up communication and further actions as a result of this message need to be communicated with the patient directly, if the patient is not active onMyChart. If the patient is active on MyChart, they will receive notification of the communication/outcome via [employer]. documented in this encounter Plan of Treatment [...] documented as of this encounter Care Teams Clinical Research Physician Relationship Specialty Start Date End Date Shantanu Landeros MD [address] [place], [place] [phone] PCP - General 06/12/22 documented as of this encounter
--- OUTSIDE RECORDS SUMMARY | 2024-08-04 20:03 | XMS_ITS | Encounter Summary ---
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
--- OUTSIDE RECORDS SUMMARY | 2024-08-04 20:03 | XMS_ITS | Encounter Summary ---
Author Organization Healthcare Address [address] [id number] Care Team Providers Care Director E Learning Name Role Phone Shantanu Landeros MD Primary Care Provider [phone] Reason for Visit * Auth/Cert (Routine) Specialty Diagnoses / Procedures Referred By Contac t Referred To Contact Diagnoses Open wound of abdominal wall, subsequent encounter Open wound of abdominal wall, subsequent encounter [S31.109D] Procedures SC SPLIT GRFT TRUNK,ARM,LEG <100 SQCM SC SPLIT GRFT,TRUNK,ARM,LEG EA 100 SQCM DEBRIDEMENT, WITH SPLIT-THICKNESS SKIN GRAFT APPLICATION; abdomen Micah Ni MD [address] [place] [phone] Phone: tel: fax: [facility] [address] [place] [address] Phone: tel: Referral ID Status Reason Start Date Expiration Date Visits Re quested Visits Authorized [id number] 1 1 Encounter Details Date Type Department Care Team (Late st Contact Info) Description 05/14/2023 9:44 AM EDT Anesthesia Event [facility] [address] [place] [address] Keaton Palomino MD [address] [place] [phone] Anesthesia Record Procedure Summary Procedure Name Responsible Anesthesiologist Anesthesia Start Time Anesthesia Stop Time DEBRIDEMENT, WITH SPLIT-THICKNESS SKIN GRAFT APPLICATION; abdomen (Bilateral) Keaton Palomino MD 05/14/23 0944 05/14/23 1036 Events Date Time Event Comment 05/14/2023 0901 0944 An Start 0946 In Room 0947 An Start Data 0951 An Induction The patient was reevaluated immediately before moderate or deep sedation use and before anesthesia induction. 0953 An Intubation 0955 Anesthesia Ready 1004 Proc Start 1022 Proc Fin 1028 An Extubation 1029 an stop data 1030 Out of Room 1036 Handoff to Receiving I compl eted my handoff to the receiving clinician during which we: 1. Identified the patient 2. Identified the responsible provider 3. Reviewed the pertinent medical history 4. Discussed the surgical course 5. Reviewed intra-op anesthesia management and issues during anesthesia 6. Set expectations for post-procedure period 7. Allowed opportunity for questions and acknowledgement of understanding. 1036 An Stop Meds Name Total fentaNYL (Sublimaze) injection 50 mcg/mL 100 mcg lidocaine PF (Xylocaine-MPF) 2% 60 mg propofol (Diprivan) injection 10 mg/mL 2 00 mg rocuronium (ZeMuron) injection 10 mg/mL 30 mg ceFAZolin (Ancef) vial 1 g 2 g dexamethasone (Decadron) injection 4 mg/ mL 4 mg ondansetron (Zofran) injection 2 mg/mL 4 mg sugammadex (Bridion) injection 100 mg/mL 200 mg lactated Ringer's infusion 1,100 mL * Agents Name O2 N2O Air Sevoflurane Inspired Sevoflurane N2O Inspired N2O * Blood No blood administrations on file. Lines, Drains, and Airways Type Details Placement Removal Wound 05/14/23; 1004; N; Y es; Incision; Abdomen; Upper, Anterior 05/14/23 1004 by Adrian Tucker RN Wound 05/14/23; 1004; N; Y es; Incision; Leg; Anterior, Right, Upper 05/14/23 1004 by Adrian Tucker RN Peripheral IV Placement Date: 04/23 12/12; Placement Time: 819; Catheter Size: 20 G; Orientation: Distal, Posterior, Right; Location: Forearm; Site Prep: Alcohol; Inserted by: willow neal; Insertion Attempts: 1; Patient Tolerance: Tolerated well; Removal Date: 05/14/23; Removal Time: 1130; Removal Reason: Discharge 05/14/23819 by Dotty Lan RN 05/14/23 1130 by Sherron Merida RN ETT Placement Date: 04/23 12/12; Placement Time: 09 (created via procedure documentation); Mask Ventilation: 1; Technique: Direct laryngoscopy; Type: ETT - single; Single Lumen Tube Size: 7 mm; Cuffed: Yes; Laryngoscope: Feli; Blade Size: 3; Location: Oral; Grade View: Grade I; Insertion Attempts: 1; Placement Verification: Auscultation, Capnometry; Airway Comments: Atraumatic. No change to dentition. 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 Anesthesia Post Evaluation Patient location during evaluation: PACU Level of consciousness: baseline Pain management: adequate (pain score 0-3) Airway patency: natural airway Cardiovascular status: acceptable Respiratory status: acceptable Hydration status: acceptable No notable events documented. * Anesthesia Procedure Notes - Jose Alejandre CRNA, DNP - 05/14/2023 9:57 AM EDTAssociated Order(s): Airway Airway Date/Time: 05/14/2023 9:53 AM Urgency: elective Airway not difficult General Information and Staff Patient location during procedure: OR DEVELOPER RELATIONS MANAGER: Jose Alejandre CRNA, DNP Performed: KALI Indications and Patient Condition Indications for airway management: anesthesia Spontaneous Ventilation: absent Preoxygenated: yes Patient position: sniffing Mask difficulty assessment: 1 - vent by mask Final Airway Details Final airway type: endotracheal airway Successful airway: ETT Cuffed: yes Successful intubation technique: direct laryngoscopy Endotracheal tube insertion site: oral Blade: Feli Blade size: #3 ETT size (mm): 7.0 Cormack-Lehane Classification: grade I - full view of glottis Placement verified by: chest auscultation and capnometry Measured from: lips ETT to lips (cm): 21 Number of attempts at approach: 1 Additional Comments Atraumatic. No change to dentition. * Anesthesia Preprocedure Evaluation - Keaton Palomino MD - 05/14/2023 8:48 AM EDT Patient: Betty ROACH 48 yo woman presents for bilateral abdominal debridement and split thickness skin graft to repain open wound from ex lap prior to ventral hernia repair. PMH: HTN, alcoholic cirrhosis, ventral hernia,former 1 ppd x 32 yr smoker, anxiety. 2021 ECG shows SR with PVCs. 2021 echo shows EF 55-60%, mild tricuspid regurgitation, otherwise normal. Prior [place] without issues. Procedure Information Date/Time: 05/14/23 1035 Procedure: DEBRIDEMENT, WITH SPLIT-THICKNESS SKIN GRAFT APPLICATION; abdomen (Bilateral) Location: [facility] [address] [place] [address] OR Surgeons: Micah Ni MD Relevant Problems No relevant active problems Anesthesia Evaluation Clinical information reviewed: Med Hx Tobacco Allergies Surg Hx Fam Hx Soc Hx OB Status NPO Status Date of Last Liquid: 05/13/23 Time of Last Liquid: 2099 Date of Last Solid: 05/13/23 Time of Last Solid: 2099 Last Intake Type: Clear fluids Time of Last Void: 829 Physical Exam Airway Mallampati: III Mouth opening: normal TM distance: >3 FB Neck ROM: full Cardiovascular - normal exam Dental Pulmonary - normal exam Neurological - normal exam Skin Musculoskeletal Extremities Anesthesia Plan ASA 3 Anesthesia technique(s) discussed with the patient/family: General Anesthesia plan agreed upon was: general Post operative pain planned: discuss with surgical team Induction planned: intravenous Airway management planned: general endotracheal Premedication planned: midazolam Anesthetic plan and risks discussed with patient. Plan discussed with DEVELOPER RELATIONS MANAGER. Additional Equipment Requests documented in this encounter Plan of Treatment Not on file documented as of this encounter Procedures Procedure Name Priority Date/Time Associated Diagnosis Comments PB ANESTHESIA PLACEHOLDER Routine 05/14/2023 9:53 AM EDT SC AN ELECTIVE ENDOTRACHEAL AIRWAY Routine 05/14/2023 9:53 AM EDT documented in this encounter Results * SC AN ELECTIVE ENDOTRACHEAL AIRWAY, PB ANESTHESIA PLACEHOLDER (05/14/2023 9:53 AM EDT) Narrative Jose Alejandre CRNA, DNP - 05/14/2023 9:53 AM EDT Jose Alejandre CRNA, DNP ? 05/14/2023 ??9:57 AM Airway Date/Time: 05/14/2023 9:53 AM Urgency: elective Airway not difficult General Information and Staff Patient location during procedure: OR DEVELOPER RELATIONS MANAGER: Jose Alejandre CRNA, DNP Performed: DEVELOPER RELATIONS MANAGER Indications and Patient Condition Indications for airway management: anesthesia Spontaneous Ventilation: absent Preoxygenated: yes Patient position: sniffing Mask difficulty assessment: 1 - vent by mask Final Airway Details Final airway type: endotracheal airway Successful airway: ETT Cuffed: yes Successful intubation technique: direct laryngoscopy Endotracheal tube insertion site: oral Blade: Feli Blade size: #3 ETT size (mm): 7.0 Cormack-Lehane Classification: grade I - full view of glottis Placement verified by: chest auscultation and capnometry Measured from: lips ETT to lips (cm): 21 Number of attempts at approach: 1 Additional Comments Atraumatic. No change to dentition. us Keaton Palomino MD ANESTHESIA ORDERABLES Final R esult documented in this encounter Visit Diagnoses Not on filedocumented in this encounter Administered Medications Inactive Administered Medications - up to 3 most recent administrations Medication Order MAR Action Action Date Dose Rate Site ceFAZolin (Ancef) injection Intravenous, As needed, Starting on Fri05/14/23 at 0955, Until Fri05/14/23 at 1036, Routine, Anesthesia Intraprocedure Given 05/14/2023 9:55 AM EDT 2 g dexamethasone (Decadron) injection Intravenous, As needed, Starting on Fri05/14/23 at 0956, Until Fri05/14/23 at 1036, Routine, Anesthesia Intraprocedure Given 05/14/2023 9:56 AM EDT 4 mg fentaNYL (Sublimaze) injection Intravenous, As needed, Starting on Fri05/14/23 at 0951, Until Fri05/14/23 at 1036, Routine, Anesthesia Intraprocedure Given 05/14/2023 10:07 AM EDT 50 mcg Given 05/14/2023 9:51 AM EDT 50 mcg lactated Ringer's infusion Intravenous, Continuous PRN, Starting on Fri05/14/23 at 0944, Until Fri05/14/23 at 1036, Routine New Bag 05/14/2023 10:13 AM EDT New Bag 05/14/2023 9:44 AM EDT lidocaine PF (Xylocaine) 2 % injection Intravenous, As needed, Starting on Fri05/14/23 at 0951, Until Fri05/14/23 at 1036, Routine, Anesthesia Intraprocedure Given 05/14/2023 9:51 AM EDT 60 mg ondansetron (Zofran) injection Intravenous, As needed, Starting on Fri05/14/23 at 0956, Until Fri05/14/23 at 1036, Routine, Anesthesia Intraprocedure Given 05/14/2023 9:56 AM EDT 4 mg propofol (Diprivan) injection Intravenous, As needed, Starting on Fri05/14/23 at 0951, Until Fri05/14/23 at 1036, Routine, Anesthesia Intraprocedure Given 05/14/2023 10:18 AM EDT 50 mg Given 05/14/2023 9:51 AM EDT 150 mg rocuronium (ZeMuron) injection Intravenous, As needed, Starting on Fri05/14/23 at 0951, Until Fri05/14/23 at 1036, Routine, Anesthesia Intraprocedure Given 05/14/2023 9:51 AM EDT 30 mg sugammadex (Bridion) 200 MG/2ML injection Intravenous, As needed, Starting on Fri05/14/23 at 1019, Until Fri05/14/23 at 1036, Routine, Anesthesia Intraprocedure Given 05/14/2023 10:19 AM EDT 200 mg documented in this encounter Additional Health Concerns Assessment Noted Time A fall risk assessment has been complete d for the patient 05/02/2023 9:55 AM EDT A Body Mass Index follow-up plan has been documented for the patient 05/03/2023 10:45 AM EDT documented as of this encounter Care Teams Director E Learning Relationship Specialty Start Date End Date Shantanu Landeros MD [address] [place] [address] PCP - General 06/12/22 documented as of this encounter
--- OUTSIDE RECORDS SUMMARY | 2024-08-04 20:03 | XMS_ITS | Encounter Summary ---
Author Organization Healthcare Address [address] [place], [place] [id number] Care Team Providers Care Window Framer Name Role Phone Shantanu Landeros MD Primary Care Provider [phone] Encounter Details Date Type Department Care Team (Late st Contact Info) Description 05/19/2023 [facility] [address] [place] [address] Shannon Jhaveri, SPEECH AND LANGUAGE ASSISTANT [address] [phone] Social History Tobacco Use Types Packs/Day Years [...] and Family Not on file 02/27/2021 Attends [employer] Not on file 02/27 Active Member [...] Recorded Patient Health Questionnaire-2 Score 1 04/23/2023 [facility] - Occupational Stress Questionnaire Answer Date [...] place to sleep or slept in a chcf (including now)? 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
--- OUTSIDE RECORDS SUMMARY | 2024-08-04 20:03 | XMS_ITS | Encounter Summary ---
Author Organization Healthcare Address [address] [place], [place] [id number] Care Team Providers Care Election Clerk Name Role Phone Shantanu Landeros MD Primary Care Provider [phone] Reason for Visit * Reason Onset Date Comments HCN - Patient Message 05/19/[address] Encounter Details Date Type Department Care Team (Late st Contact Info) Description 05/19/2023 Telephone [facility] Plastic & Reconstructive Surgery [address] [place] [phone] Micah Ni MD [address] [phone] HCN - Patient Message (Call request ) Social History Tobacco Use Types Packs/Day Years [...] Patient Health Questionnaire-2 Score 1 04/23/2023 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 She has an appointment with Shannon Jhaveri at 2:30 PM today. * Telephone Encounter - Moraima Griffin - 05/19/2023 8:05 AM EDT Patient Phone Message Reason for Call: Pt states she woke up this morning and her bandage is stuck to her leg. Pt states she has tried everything and unable to get it off, looking for recommendations please. Best contact number and optimal time of day to reach caller: [phone] Note: Please do not reply to this message. Follow-up communication and further actions as a result of this message need to be communicated with the patient directly, if the patient is not active onMyChart. If the patient is active on MyChart, they will receive notification of the communication/outcome via [employer]. documented in this encounter Plan of Treatment [...] documented as of this encounter Care Teams Election Clerk Relationship Specialty Start Date End Date Shantanu Landeros MD [address] [place] [address] PCP - General 06/12/22 documented as of this encounter
--- OUTSIDE RECORDS SUMMARY | 2024-08-04 20:03 | XMS_ITS | Encounter Summary ---
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
--- OUTSIDE RECORDS SUMMARY | 2024-08-04 20:04 | XMS_ITS | Encounter Summary ---
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 Name Role Phone Tapestry, General External Provider Primary C are Provider Reason for Visit * Reason Comments Abdominal Pain Encounter Details Date Type Department Care Team ([facility] st Contact Info) Description 01/23/2022 12:45 PM EDT - 01/23/2022 2:59 PM EDT Emergency [facility] Emergency Department [address] [place] [address] Kemar Knight MD [address] [place] [address] Generalized abdominal pain (Primary Dx); Abdominal distension; Chronic abdominal wound infection, sequela Discharge Disposition: Left Against Medical Advice Social History Tobacco Use Types Packs/Day Years [...] Recorded Patient Health Questionnaire-2 Score 2 02/27/2021 [facility] - Occupational [...] Industry Job Start Date Job End Date [employer] Not on file Not on file Not on f ile COVID-19 Exposure Response Date Recorded In the last 10 days, have yo u been in contact with someone who was confirmed or suspected to have Coronavirus/COVID-19? No / Unsure 01/23/2022 12:07 PM EDT documented as of this encounter Last Filed Vital Signs Vital Sign Reading Time Taken Comments Blood Pressure 148/103 01/23/2022 2:30 PM EDT Pulse 93 01/23/2022 2:30 PM EDT Temperature 36.6 ??C (97.8 ??F) 01/23/2022 12:08 PM E DT Respiratory Rate 19 01/23/2022 2:30 PM EDT Oxygen Saturation 90% 01/23/2022 2:30 PM EDT Inhaled Oxygen Concentration - - Weight 68.5 kg (151 lb 0.2 oz) 01/23/2022 1:15 P M EDT Height 170.2 cm (5' 7 ) 01/23/2022 1:15 PM EDT Body Mass Index 23.65 01/23/2022 1:15 PM EDT documented in this encounter Medications at Time of Discharge PARoxetine (Paxil) 40 MG tablet Take 1 tablet (40 mg) by mouth 1 (one) time each day in the morning. 4 QUEtiapine (SEROquel) 50 MG tablet Take 1 tablet (50 mg) by mouth every night. 3 naloxone (Narcan) 4 mg/0.1 mL nasal spray Administer 1 spray (4 mg total) into affected nostril(s) if needed for opioid reversal. Call 911. Give 4 mg (1 spray) into one nostril. Repeat every 2-3 minutes as needed, alternating nostrils, until medical assistance arrives. 1 each 11 10/01/2021 3 lisinopril 10 MG tablet Take 1 tablet (10 mg total) by mouth 1 (one) time each day. 30 tablet 11 10/17/2021 4 naltrexone (ReVia) 50 MG tablet Take 1 tablet (50 mg) by mouth every night. 4 nicotine (Nicoderm CQ) 21 MG/24HR patch Place 1 patch on the skin 1 (one) time each day. 30 patch 10/17/2021 3 QUEtiapine (SEROquel) 100 MG tablet Take 1 tablet (100 mg) by mouth every night. 4 documented as of this encounter Miscellaneous Notes * ED Notes - Camryn Capone, RN - 01/23/2022 2:45 PM EDT Pt requesting to leave AMA, pt GSC 15. Pt mother at bedside. MD Knight notified and at bedside to discuss risk of leaving AMA. Camryn Capone RN 01/23/22 1923 * Progress Notes - Judson Schwarz - 01/23/2022 2:37 PM EDT CM met with pt and pt's mother at bedside. Pt's mother reported pt experienced a perforated bowel and is a chronic alcoholic who underwent surgery in Aug 2021. She stated her daughter has drank excessively for over 17 years and most recently unable to maintain stable residence. Pt has lived with her mother, sister, niece, motels and her own car since being discharged from that most recent surgery. Pt continues to drink. She was recently arrested for public intoxication and mother very concernedfor pt's current status. When this CM interviewed pt and discuss resources and alcohol detox programs pt was absolutely uninterested and stated I'm tired of everyone trying to make my decisions for me, I just want to go back into my car and live . Pt reports her inability to sleep as her PCP, Dr. Landeros discontinued her Ambien prescription. Mom reports speaking to [facility] Attorney about possible legal and guardianship options. Currently there are no options in this situation. CM offered homeless resources, food and [place] [facility] options however, pt declined. Pt's. Mother is willing to take pt back to a motel upon being cleared for discharge. * ED Provider Notes - Rich Ng DO - 01/23/2022 12:04 PM EDT HPI Chief Complaint Patient presents with ??? Abdominal Pain PIT Note Betty Levi is a 46 y.o. female who presents to ED with abdominal pain. Pt pain began this morning after she woke up. Pt reports she is a heavy drinker adding she has been drinking as much as Ican . Pt documents drinking vodka per choice. Pt's pain is accompanied by some distention. Pt documents shaking during withdrawal from alcohol. Pt had exploratory surgery Sep 12. Patient denies N/V/D, fever, chills, cough, congestion, body aches, dizziness, light headedness, urinary symptoms, changes in bowels, SOA, and chest pain. Date/Time: 01/23/2022/12:34 PM Entered by Rosalba Lewis, acting as scribe for Dr. Galeana. Attending Attestation: The documentation was recorded by Rosalba Lewis, acting as scribe in my presence at the time of the encounter and accurately reflects the service I personally performed. Berenice: I assumed care of this patient. Patient is a 46-year-old female with a past medical history of alcohol abuse presenting to the emergency department today for abdominal pain and distension. Patient has a chronic wound from a previous ex lap procedure that was done on 10/07/2021 for a washout and hematoma evacuation from an intra-abdominal infection. Patient had ascending cholangitis, peritonitis, pneumoperitoneum, left TOA abscess initial operated on at outside hospital at the end of August 2021. Patient was transferred to [facility] for a repeat ex lap procedure that was done on October 07. Multiple organisms grew on her cultures and received IV antibiotic therapy while inpatient. She had have a wound VAC at that time as well. Patient's continues to endorse alcohol use, with at least four 2 ounce shots daily. Patient endorses subjective fever, chills, nausea with no episodesof emesis. History provided by: Patient service now developer used: No Corrie Coma Scale Score: 15 Patient History Past Medical History: Diagnosis Date ??? Alcohol abuse ??? Alcohol withdrawal delirium (CMS/HCC) ??? Anxiety 03/19/2018 ??? COVID-19 09/23/2021 ??? Depression ??? Essential hypertension 03/19/2018 ??? Insomnia Past Surgical History: Procedure Laterality Date ??? SECTION, LOW TRANSVERSE ??? EXPLORATORY LAPAROTOMY 09/12/2021 evacuation of tubo-ovarian abscess Family History Problem Relation Name Age of Onset ??? Cervical cancer Mother ??? Hypertension Father Tobacco Use ??? Smoking status: Current Every Day Smoker Packs/day: 1.00 Years: 32.00 Pack years: 32.00 Types: Cigarettes Substance Use Topics ??? Alcohol use: Yes Alcohol/week: 21.0 - 30.0 standard drinks Types: 21 - 30 Shots of liquor per week Comment: 3 airplane bottles/day on weekdays; 6 airplane bottles/day on weekends ??? Drug use: Never Comment: denies current use Immunization History Immunization History: not reviewed Allergies: Allergies Allergen Reactions ??? Hydrocodone-Acetaminophen Itching and Nausea Only ??? Oxycodone-Acetaminophen Itching and Nausea Only Tolerated dose with po benadryl ??? Sulfadiazine Other Review of Systems Review of Systems Constitutional: Positive for chills and fever. HENT: Negative for ear pain and sore throat. Eyes: Negative for pain and visual disturbance. Respiratory: Negative for cough and shortness of breath. Cardiovascular: Negative for chest pain and palpitations. Gastrointestinal: Positive for abdominal distention, abdominal pain and nausea. Negative for vomiting. Genitourinary: Negative for dysuria and hematuria. Musculoskeletal: Negative for arthralgias and back pain. Skin: Negative for color change and rash. Neurological: Negative for seizures and syncope. All other systems reviewed and are negative. Physical Exam ED Triage Vitals [01/23/22 1208] Temp Heart Rate Resp BP 36.6 ??C (97.8 ??F) 101 14 108/60 SpO2 Temp Source Heart Rate Source Patient Position 98 % Oral -- Sitting BP Location FiO2 (%) Right arm -- Physical Exam Vitals and nursing note reviewed. Constitutional: General: She is not in acute distress. Appearance: Normal appearance. She is ill-appearing. HENT: Head: Normocephalic and atraumatic. Right Ear: External ear normal. Left Ear: External ear normal. Nose: Nose normal. No rhinorrhea. Mouth/Throat: Mouth: Mucous membranes are moist. Eyes: Extraocular Movements: Extraocular movements intact. Conjunctiva/sclera: Conjunctivae normal. Cardiovascular: Rate and Rhythm: Regular rhythm. Tachycardia present. Heart sounds: Normal heart sounds. Pulmonary: Effort: Pulmonary effort is normal. No respiratory distress. Breath sounds: Normal breath sounds. Abdominal: General: There is distension. Tenderness: There is generalized abdominal tenderness. There is guarding. Musculoskeletal: General: No deformity. Normal range of motion. Cervical back: Normal range of motion and neck supple. Skin: General: Skin is warm and dry. Coloration: Skin is not jaundiced or pale. Neurological: General: No focal deficit present. Mental Status: She is alert and oriented to person, place, and time. ED Course & MDM Clinical Impressions as of 01/23/22 1548 Generalized abdominal pain Abdominal distension Chronic abdominal wound infection, sequela ED Disposition: AMA [facility] Number of Diagnoses or Management Options Diagnosis management comments: In summary this is a 46-year-old female with past medical history described above presenting to emergency department today for abdominal distension and abdominal pain. Patient seen and discussed with Dr. Knight. Upon initial evaluation, patient is toxic in appearance, hypertensive, tachycardic, in mild acute distress secondary to pain. Exam is evident for a distended, tender abdomen upon palpation. She has a chronic wound on the ventral surface of her abdomen, see media tab for image. Differential diagnosis includes but not limited to intra-abdominal infection, wound dehiscence, fascial dehiscence, alcoholic hepatitis, bowel obstruction, nonocclusive mesenteric ischemia. Given this pain chain CBC, CMP, PT INR, type and screen, blood cultures, DM, phosphorus, lipase, and CT abdomen pelvis with IV contrast to assess for underlying etiology. Administer 4 mg IVmorphine, 4 mg IV Zofran, and PO thiamine for symptomatic support. Will initiate empiric IV Zosyn for presumed abdominal infection. Labs and imaging personally reviewed. Labs evident for areas electrolyte disturbances, hypokalemia,hypomagnesemia, hypophosphatemia. Will replete with 40 mg IV potassium, 40 mg PO potassium, 2 g IV magnesium, K- phos tablet. She declined IV contrast, will proceed with CT abdomen pelvis without contrast. CT abdomen pelvis showing central perfusion of bowel loops which could be due to wound dehiscence or rectus sheath laxity. Will consult SGE for evaluation. Prior to evaluation by SGE, patient wanting to leave AMA. Risks of leaving were discussed with the patient and she expressed understanding. Patient left AMA. Amount and/or Complexity of Data Reviewed Clinical lab tests: ordered and reviewed Tests in the radiology section of CPT??: ordered and reviewed Patient Progress Patient progress: stable ED Prescriptions None Sign Off Checklist Clinical Impression: Complete ED Disposition: Complete Rich Ng DO Resident 01/23/22 1549 Cosigned by Keamr Knight MD at 01/29/2022 8:45 AM EDT Associated attestation - Kemar Knight MD - 01/29/2022 8:45 AM EDT I saw and evaluated the patient with the resident/fellow. I discussed the case with the resident/fellow and agree with the findings and plan as documented. * ED Triage Notes - Mingo Dwyer RN - 01/23/2022 12:04 PM EDT Patient presents for severe abdominal pain and distention and altered mental status (current + ETOH), states she drinks vodka daily 'as much as she can'. Has been at 'detox center' per family since August, was transferred to [facility] in September of 2021 following ex-lap surgery on 09/12/2021 at OSH. On admission, patient had colitis and peritonitis that was washed out but patient developed septic shock requiring vasopressors and intubation. Has had issues following surgery and presents today with unbearable abdominal pain. documented in this encounter Plan of Treatment Scheduled Orders Name Type Priority Associated Diagnoses Orde r Schedule Blood Culture (Aerobic/Anaerobet Set) Microbiology STAT STAT (Lab) for 1 Occurrences starting 01/23/2022 until 01/23/2022 Blood Culture (Aerobic/Anaerobet Set) Microbiology STAT STAT (Lab) for 1 Occurrences starting 01/23/2022 until 01/23/2022 documented as of this encounter Procedures Procedure Name Priority Date/Time Associated Diagnosis Comments CT ABDOMEN PELVIS WO IV CONTRAST STAT 01/23/2022 2:09 PM EDT PROTHROMBIN TIME(PT) / INR STAT 01/23/2022 1:37 PM EDT TYPE AND SCREEN STAT 01/23/2022 1:37 PM EDT ED PROTOCOL HIV 1/2 ANTIBODY/ANTIGEN SCREEN W/REFLEX TO HIV 1/2 ANTIBODY DIFFERENTIATION STAT 01/23/2022 1:02 PM EDT LACTATE, VENOUS STAT 01/23/2022 1:02 PM EDT ETHYL ALCOHOL PLASMA STAT 01/23/2022 1:02 PM EDT HIV 1/2 ANTIBODY/ANTIGEN SCREEN WITH REFLEX TO HIV I/II DIFFERENTIATION STAT 01/23/2022 1:02 PM EDT HEPATITIS C ANTIBODY - ED W/REFLEX TO HCV QUANT PCR STAT 01/23/2022 1:02 PM EDT CBC WITH AUTO DIFFERENTIAL STAT 01/23/2022 1:02 PM EDT PHOSPHORUS, PLASMA STAT 01/23/2022 1: 02 PM EDT MAGNESIUM, PLASMA STAT 01/23/2022 1:0 2 PM EDT LIPASE, PLASMA STAT 01/23/2022 1:02 PM EDT COMPREHENSIVE METABOLIC PANEL, PLASMA STAT 01/23/2022 1:02 PM EDT documented in this encounter Results * CT Abdomen Pelvis wo IV Contrast (01/23/2022 2:09 PM EDT) Anatomical Region Laterality Modality Abdomen, Pelvis Computed Tomogra phy Impressions 01/23/2022 2:19 PM EDT Distended gallbladder with no evidence of inflammation. This is likely due to nothing by mouth status. Correlate clinically. Central protrusion of central abdominal bowel loops as described above. This could either be due to dehiscence of the previous laparotomy wound with overlying granulation tissue or be due to laxity of the rectus sheath. Correlate with history and physical exam. CRITICAL RESULT: ?? No. COMMUNICATION: Per this written report.. Dictated by Andrea Kruse on 01/23/2022 2:13 PM Signed by Andrea Kruse on 01/23/2022 2:19 PM Narrative 01/23/2022 2:19 PM EDT Exam/Procedure: CT ABDOMEN PELVIS WO IV CONTRAST ordered by MARIBEL GALEANA, [id number] CLINICAL INDICATION: Abdominal distension TECHNIQUE: Imaging of the abdomen and pelvis was performed from lung bases through pubic symphysis, using spiral technique, without administration of IV contrast. ??Reformatted images in the coronal and sagittal planes were generated from the axial data set to facilitate diagnostic accuracy. Total DLP (Dose-Length Product): 355.02 mGy.cm. Please note: The reported value represents the total of one or more individual components during the CT acquisition on this date and at this time, and as such, the same value may appear in more than one CT report depending on the interpreting/reporting physicians. COMPARISON: September 27, 2021 FINDINGS: Lack of IV contrast limits evaluation of abdominal and pelvic organs. Lung Bases: The lung bases are clear. Liver/Gallbladder/Biliary System: The liver demonstrates no focal lesion. Gallbladder is distended measuring up to 4.7 cm in transverse dimension. No intra- or extra-hepatic biliary ductal dilatation. Spleen: The spleen is normal. Pancreas: The pancreas is normal. Adrenals: The adrenals are morphologically unremarkable. Kidneys: The kidneys are normal. Bilateral nephrolithiasis No hydronephrosis. Bowel/Mesentery: The small bowel loops are not dilated. The large bowel loops are not dilated. ??The appendix is visualized and normal. Vessels/Lymph Nodes: The abdominal aorta is unremarkable. No lymphadenopathy within the abdomen or pelvis. Fluid Survey: No free fluid in the abdomen. No free fluid in the pelvis. Pelvis: The pelvic viscera are unremarkable. Body Wall: Since prior exam there's been interval protrusion in the midline of the abdomen of bowel loops. No hernia defect is seen. However this could be the result of dehiscence of the rectus sheath incision or represent diastases of the rectus sheath. Correlate clinically.. Bones: No acute fracture. Procedure Note Andrea Kruse MD - 01/23/2022 Exam/Procedure: CT ABDOMEN PELVIS WO IV CONTRAST ordered by MARIBEL PRETTY, [id number] CLINICAL INDICATION: Abdominal distension TECHNIQUE: Imaging of the abdomen and pelvis was performed from lung bases throughpubic symphysis, using spiral technique, without administration of IVcontrast. Reformatted images in the coronal and sagittal planes weregenerated from the axial data set to facilitate diagnostic accuracy. Total DLP (Dose-Length Product): 355.02 mGy.cm. Please note: The reportedvalue represents the total of one or more individual components during theCT acquisition on this date and at this time, and as such, the same valuemay appear in more than one CT report depending on theinterpreting/reporting physicians. COMPARISON: September 27, 2021 FINDINGS: Lack of IV contrast limits evaluation of abdominal and pelvic organs. Lung Bases: The lung bases are clear. Liver/Gallbladder/Biliary System: The liver demonstrates no focal lesion.Gallbladder is distended measuring up to 4.7 cm in transverse dimension.No intra- or extra-hepatic biliary ductal dilatation. Spleen: The spleen is normal. Pancreas: The pancreas is normal. Adrenals: The adrenals are morphologically unremarkable. Kidneys: The kidneys are normal. Bilateral nephrolithiasis Nohydronephrosis. Bowel/Mesentery: The small bowel loops are not dilated. The large bowelloops are not dilated. The appendix is visualized and normal. Vessels/Lymph Nodes: The abdominal aorta is unremarkable. Nolymphadenopathy within the abdomen or pelvis. Fluid Survey: No free fluid in the abdomen. No free fluid in the pelvis. Pelvis: The pelvic viscera are unremarkable. Body Wall: Since prior exam there's been interval protrusion in themidline of the abdomen of bowel loops. No hernia defect is seen. Howeverthis could be the result of dehiscence of the rectus sheath incision orrepresent diastases of the rectus sheath. Correlate clinically.. Bones: No acute fracture. IMPRESSION: Distended gallbladder with no evidence of inflammation. This is likely dueto nothing by mouth status. Correlate clinically. Central protrusion of central abdominal bowel loops as described above.This could either be due to dehiscence of the previous laparotomy woundwith overlying granulation tissue or be due to laxity of the rectussheath. Correlate with history and physical exam. CRITICAL RESULT: No. COMMUNICATION: Per this written report.. Dictated by Andrea Kruse on 01/23/2022 2:13 PM Signed by Andrea Kruse on 01/23/2022 2:19 PM Maribel Galeana MD [facility] CT PROCEDURES Final Result * (ABNORMAL) PT-INR (01/23/2022 1:37 PM EDT) Prothrombin Time 14.4(H) 12.0 - 14.3 sec 01/23/2022 2:02 PM EDT [facility] INR 1.1 0.9 - 1.1 01/23/2022 2:02 PM EDT [facility]ALTHCARE [facility] Blood Venous blood specimen / Unknown Venipuncture / Unknown 01/23/2022 1:37 PM EDT 01/23/2022 1:41 PM EDT Narrative [facility] - 01/23/2022 2:02 PM EDT OPTIMAL INR RANGES FOR PATIENT ON ORAL ANTICOAGULANT THERAPY Prevention of venous thromboembolism ?INR 2.0 to 3.0 In patients with heart disease: Atrial fibrillation ?INR 2.0 to 3.0 Valvular heart disease ? INR 2.0 to 3.0 Tissue heart valves ?INR 2.0 to 3.0 Mechanical prosthetic valves ? INR 2.5 to 3.5 Prevention of recurrent AK ? INR 2.5 to 3.5 us Kemar Knight MD LAB BLOOD ORDERABLES Final Resu lt Performing Organization Address [facility] de Phone Number HEALTHCARE LAB [address] [place] [address] * Type and screen (01/23/2022 1:37 PM EDT) Pathologist [facility] ABO/Rh O Positive 01/23/2022 1:16 PM EDT BLOOD BANK Antibody Screen Negative 01/23/2022 1:16 PM EDT BLOOD BANK Blood Venous blood specimen / Unknown Venipuncture / Unknown 01/23/2022 1:37 PM EDT 01/23/2022 1:42 PM EDT us Kemar Knight MD LAB BLOOD BANK TEST ORDERABLES Final Result Performing Organization Address [facility] de Phone Number BLOOD BANK [address] [place] [address], [place] * HIV 1 & 2 Antibody/Antigen Screen (01/23/2022 1:02 PM EDT) Pathologist [facility] HIV 1 & 2 Antibody/Anti gen Screen Nonreactive Nonreactive 01/23/2022 3:15 PM EDT [facility] Blood Venous blood specimen / Unknown Venipuncture / Unknown 01/23/2022 1:02 PM EDT 01/23/2022 1:24 PM EDT Maribel Galeana MD LAB BLOOD ORDERABLES Final Res ult Performing Organization Address [facility] de Phone Number [facility] [address] [place] [address] * (ABNORMAL) Ethyl Alcohol, Plasma (01/23/2022 1:02 PM EDT) [facility] Ethanol Plasma 290(H) <10 mg/dL 01/23/2022 3:06 PM EDT [facility] Blood Venous blood specimen / Unknown Venipuncture / Unknown 01/23/2022 1:02 PM EDT 01/23/2022 1:11 PM EDT Narrative [facility] - 01/23/2022 3:06 PM EDT Test performed by Gas Chromatography at the [facility]. This test was developed and its performance characteristics determined by [facility]. It has not been cleared or approved by the FDA.The laboratory is regulated under CLIA as qualified to perform high-complexity testing. This test is used for clinical purposes only. Maribel Galeana MD LAB BLOOD ORDERABLES Final Res ult Performing Organization Address [facility] Co de Phone Number [facility] [address] [place] [address] * (ABNORMAL) CBC w/diff (01/23/2022 1:02 PM EDT) [facility] WBC Count 5.12 3.70 - 10.30 10*3/uL LAB HEMATOLOGY METHOD 01/23/2022 1:09 PM EDT [facility] RBC Count 3.50(L) 3.90 - 5.20 10*6/uL LAB HEMATOLOGY METHOD 01/23/2022 1:09 PM EDT [facility] HGB 10.3(L) 11.2 - 15.7 g/dL LAB HEMATOLOGY METHOD 01/23/2022 1:09 PM EDT [facility] HCT 32.2(L) 34.0 - 45.0 % LAB HEMATOLOGY METHOD 01/23/2022 1:09 PM EDT [facility] Platelet Count 213 155 - 369 10*3/uL LAB HEMATOLOGY METHOD 01/23/2022 1:09 PM EDT [facility] MCV 92 79 - 98 fL LAB HEMATOLOGY METHOD 01/23/2022 1:09 PM EDT [facility] MCH 29.4 26.0 - 32.0 pg LAB HEMATOLOGY METHOD 01/23/2022 1:09 PM EDT [facility] MCHC 32.0 30.7 - 35.5 g/dL LAB HEMATOLOGY METHOD 01/23/2022 1:09 PM EDT [facility] RDW 23.9(H) 11.5 - 14.5 % LAB HEMATOLOGY METHOD 01/23/2022 1:09 PM EDT [facility] MPV 8.9 8.8 - 12.5 fL LAB HEMATOLOGY METHOD 01/23/2022 1:09 PM EDT [facility] nRBC 0.0 <=0.0 per 100 WBCs LAB HEMATOLOGY METHOD 01/23/2022 1:09 PM EDT [facility] Differential Type Automated LAB HEMATOLOGY METHOD 01/23/2022 1:09 PM EDT [facility] Neutrophils % 65.0 % LAB HEMATOLOGY METHOD 01/23/2022 1:09 PM EDT [facility] Lymphocytes % 28.0 % LAB HEMATOLOGY METHOD 01/23/2022 1:09 PM EDT [facility] Monocytes % 6.0 % LAB HEMATOLOGY METHOD 01/23/2022 1:09 PM EDT [facility] Eosinophils % 0.0 % LAB HEMATOLOGY METHOD 01/23/2022 1:09 PM EDT [facility] Basophils % 1.0 % LAB HEMATOLOGY METHOD 01/23/2022 1:09 PM EDT [facility] Immature Granulocytes % 0.0 % LAB HEMATOLOGY METHOD 01/23/2022 1:09 PM EDT [facility] Neutrophils Absolute 3.30 1.60 - 6.10 10*3/uL LAB HEMATOLOGY METHOD 01/23/2022 1:09 PM EDT [facility] [facility] Lymphocytes Absolute 1.43 1.20 - 3.90 10*3/uL LAB HEMATOLOGY METHOD 01/23/2022 1:09 PM EDT [facility] Monocytes Absolute 0.33 0.30 - 0.90 10*3/uL LAB HEMATOLOGY METHOD 01/23/2022 1:09 PM EDT [facility] Eosinophils Absolute 0.01 0.00 - 0.50 10*3/uL LAB HEMATOLOGY METHOD 01/23/2022 1:09 PM EDT [facility] Basophils Absolute 0.03 0.00 - 0.10 10*3/uL LAB HEMATOLOGY METHOD 01/23/2022 1:09 PM EDT [facility] Immature Granulocytes Absolute 0.02 0.00 - 0.06 10*3/uL LAB HEMATOLOGY METHOD 01/23/2022 1:09 PM EDT [facility] Blood Venous blood specimen / Unknown Venipuncture / Unknown 01/23/2022 1:02 PM EDT 01/23/2022 1:06 PM EDT Narrative [facility] - 01/23/2022 1:09 PM EDT Therapeutic decision making should be based on absolute values, rather than percentages. us Maribel Galeana MD LAB BLOOD ORDERABLES Final Res ult Performing Organization Address City/[facility]/ZIP Co de Phone Number [facility] [address] [place] [address] * (ABNORMAL) Lactic acid, venous (01/23/2022 1:02 PM EDT) Lactate, Venous, Whole Blood 3.3(H) 0.5 - 2.2 mmol/L LAB HEMATOLOGY METHOD 01/23/2022 1:08 PM EDT [facility] Blood Venous blood specimen / Unknown Venipuncture / Unknown 01/23/2022 1:02 PM EDT 01/23/2022 1:06 PM EDT us Maribel Galeana MD LAB BLOOD ORDERABLES Final Res ult [facility] [address] [place] [address] * Lipase (01/23/2022 1:02 PM EDT) Lipase, Plasma 35 19 - 63 U/L 01/23/2022 1:30 PM EDT [facility] Blood Venous blood specimen / Unknown Venipuncture / Unknown 01/23/2022 1:02 PM EDT 01/23/2022 1:06 PM EDT us Maribel Galeana MD LAB BLOOD ORDERABLES Final Res ult Performing Organization Address City/[facility] Co de Phone Number [facility] [address] [place] [address] * (ABNORMAL) Phosphorus (01/23/2022 1:02 PM EDT) Phosphorus, Plasma 2.4(L) 2.5 - 4.5 mg/dL 01/23/2022 1:30 PM EDT [facility] Blood Venous blood specimen / Unknown Venipuncture / Unknown 01/23/2022 1:02 PM EDT 01/23/2022 1:06 PM EDT us Maribel Galeana MD LAB BLOOD ORDERABLES Final Res ult Performing Organization Address [facility] de Phone Number [facility] [address] [place] [address] * (ABNORMAL) Magnesium (01/23/2022 1:02 PM EDT) Magnesium, Plasma 1.7(L) 1.9 - 2.4 mg/dL 01/23/2022 1:30 PM EDT [facility] Blood Venous blood specimen / Unknown Venipuncture / Unknown 01/23/2022 1:02 PM EDT 01/23/2022 1:06 PM EDT us Maribel Galeana MD LAB BLOOD ORDERABLES Final Res ult Performing Organization Address [facility] de Phone Number [facility] [address] [place] [address] * [place] Hepatitis C Antibody (01/23/2022 1:02 PM EDT) Hepatitis C Antibody Negative Negative 01/23/2022 3:14 PM EDT [facility] Blood Venous blood specimen / Unknown Venipuncture / Unknown 01/23/2022 1:02 PM EDT 01/23/2022 1:24 PM EDT us Maribel Galeana MD LAB BLOOD ORDERABLES Final Res ult [facility] [address] [place] [address] * (ABNORMAL) CMP (01/23/2022 1:02 PM EDT) Glucose, Plasma 122(H) 74 - 99 mg/dL 01/23/2022 1:30 PM EDT [facility] BUN, Plasma 7 7 - 21 mg/dL 01/23/2022 1:30 PM EDT [facility] Creatinine, Plasma 0.81 0.60 - 1.10 mg/dL 01/23/2022 1:30 PM EDT [facility] BUN/Creatinine Ratio 9 01/23/2022 1:30 PM EDT [facility] Sodium, Plasma 137 136 - 145 mmol/L 01/23/2022 1:30 PM EDT [facility] Potassium, Plasma 2.6(L) 3.7 - 4.8 mmol/L 01/23/2022 1:30 PM EDT [facility] Comment:Reference range for Serum potassium is 0.2 to 0.5 mmol/L higher than Plasma range. Chloride, Plasma 93(L) 97 - 107 mmol/L 01/23/2022 1:30 PM EDT [facility] CO2, Plasma 33(H) 22 - 29 mmol/L 01/23/2022 1:30 PM EDT [facility] Anion Gap 11 6 - 16 mmol/L 01/23/2022 1:30 PM EDT [facility] Total Calcium, Plasma 8.3(L) 8.9 - 10.2 mg/dL 01/23/2022 1:30 PM EDT [facility] Total Protein 7.6 6.3 - 7.9 g/dL 01/23/2022 1:30 PM EDT [facility] Albumin, Plasma 3.0(L) 3.5 - 5.2 g/dL 01/23/2022 1:30 PM EDT [facility] AST, Plasma 266(H) 11 - 32 U/L 01/23/2022 1:30 PM EDT [facility] ALT, Plasma 44(H) 8 - 33 U/L 01/23/2022 1:30 PM EDT [facility] Alkaline Phosphatase, Plasma 414(H) 35 - 104 U/L 01/23/2022 1:30 PM EDT [facility] Total Bilirubin, Plasma 0.6 0.2 - 1.1 mg/dL 01/23/2022 1:30 PM EDT [facility] eGFR >60 >60 mL/min/1.7 3m*2 01/23/2022 1:30 PM EDT [facility] Comment:eGFR = estimated GFR ; eGFR units = mL/min/1.73 sq meters Chronic Kidney Disease is considered if eGFR <60 mL/min/1.73 sq meters Kidney failure is considered if eGFR is <15 mL/min/1.73 sq meters. eGFR assumes steady state plasma creatinine concentration; not applicable if renal function is rapidly changing or patient is on dialysis. eGFR, if AFR/AM >60 >60 mL/min/1.7 3m*2 01/23/2022 1:30 PM EDT [facility] Comment:eGFR = estimated GFR ; eGFR units = mL/min/1.73 sq meters Chronic Kidney Disease is considered if eGFR <60 mL/min/1.73 sq meters Kidney failure is considered if eGFR is <15 mL/min/1.73 sq meters. eGFR assumes steady state plasma creatinine concentration; not applicable if renal function is rapidly changing or patient is on dialysis. Blood Venous blood specimen / Unknown Venipuncture / Unknown 01/23/2022 1:02 PM EDT 01/23/2022 1:06 PM EDT us Maribel Galeana MD LAB BLOOD ORDERABLES Final Res ult [facility] [address] [place] [address] documented in this encounter Visit Diagnoses Diagnosis Generalized abdominal pain- Primary Abdominal pain, generalized Abdominal distension Flatulence, eructation, and gas pain Chronic abdominal wound infection, sequela documented in this encounter Administered Medications Inactive Administered Medications - up to 3 most recent administrations Medication Order MAR Action Action Date Dose Rate Site folic acid (Folvite) tablet 1 mg 1 mg, Oral, Daily, First dose on Fri01/23/22 at 1300, Until Discontinued, Routine Given 01/23/2022 1:39 PM EDT 1 mg iohexol (OMNIPaque) 300 MG/ML injection 100 mL 100 mL, Intravenous, Once in imaging, 1 dose, Starting on Fri01/23/22 at 1338, Until Fri01/23/22 at 1700, Routine, Imaging Protocol Orders lactated Ringer's infusion 1,000 mL 1,000 mL, Intravenous, Once, 1 dose, On Fri01/23/22 at 1320, STAT New Bag 01/23/2022 1:38 PM EDT 1,000 mL piperacillin-tazobactam (Zosyn) 3.375 g in sodium chloride 0.9% 100 mL IVPB (Mini-Bag Plus) 3.375 g, Intravenous, Once, 1 dose, On Fri01/23/22 at 1320, STAT New Bag 01/23/2022 1:38 PM EDT 3.375 g 220 mL/hr potassium chloride IVPB 10 mEq 10 mEq, Intravenous, Every 1 hour, 4 doses, First dose on Fri01/23/22 at 1400, Last dose on Fri01/23/22 at 1700, RoutineIndications:Hypokale ziggy thiamine (Vitamin B-1) tablet 100 mg 100 mg, Oral, Daily, First dose on Fri01/26/22 at 0900, Until Discontinued, Routine thiamine (Vitamin B1) injection 200 mg 200 mg, Intravenous, Every 8 hours, 6 doses, First dose on Fri01/23/22 at 1300, Last dose on Fri01/25/22 at 0500, STAT Given 01/23/2022 1:38 PM EDT 200 mg documented in this encounter Active and Recently Administered Medications Times are shown in EDT. Scheduled Medication Order 01/21/2022 01/22/2022 01/23/2022 folic acid (Folvite) tablet 1 mg 1 mg, Oral, Daily, First dose on Fri01/23/22 at 1300, Until Discontinued, Routine 1339 (Given - Provid er: Camryn Capone RN) iohexol (OMNIPaque) 300 MG/ML injection 100 mL 100 mL, Intravenous, Once in imaging, 1 dose, Starting on Fri01/23/22 at 1338, Until Fri01/23/22 at 1700, Routine, Imaging Protocol Orders lactated Ringer's infusion 1,000 mL (COMPLETED) 1,000 mL, Intravenous, Once, 1 dose, On Fri01/23/22 at 1320, STAT 1338 (New Bag - Prov ider: Camryn Capone RN) magnesium sulfate IVPB 2 g 2 g, Intravenous, Once, 1 dose, On Fri01/23/22 at 1400, STAT 1454 (Not Given - Pr ovider: Camryn Capone RN - Reason: Patient/family refused) morphine PF 4 mg 4 mg, Intravenous, Once, 1 dose, On Fri01/23/22 at 1340, STAT 1454 (Not Given - Pr ovider: Camryn Capone RN - Reason: Patient/family refused) ondansetron (Zofran) injection 4 mg 4 mg, Intravenous, Once, 1 dose, On Fri01/23/22 at 1340, STAT 1340 (Canceled Entry - Provider: Automatic Discharge Provider - Comment: Automatically canceled at discontinue of medication order) phosphorus (K Phos Neutral) tablet 2 tablet 2 tablet (500 mg), Oral, Once, 1 dose, On Fri01/23/22 at 1400, Routine 1453 (Not Given - Pr ovider: Camryn Capone RN - Reason: Patient/family refused) piperacillin-tazobactam (Zosyn) 3.375 g in sodium chloride 0.9% 100 mL IVPB (Mini-Bag Plus) (COMPLETED) 3.375 g, Intravenous, Once, 1 dose, On Fri01/23/22 at 1320, STAT 1338 (New Bag - Prov ider: Camryn Capone RN)1454 (Stopped - Provider: Camryn Capone RN) potassium chloride (Klor-Con) packet 40 mEq 40 mEq, Oral, Once, 1 dose, On Fri01/23/22 at 1400, Routine 1453 (Not Given - Pr ovider: Camryn Capone RN - Reason: Patient/family refused) potassium chloride IVPB 10 mEq 10 mEq, Intravenous, Every 1 hour, 4 doses, First dose on Fri01/23/22 at 1400, Last dose on Fri01/23/22 at 1700, Routine 1453 (Not Given - Pr ovider: Camryn Capone RN - Reason: Patient/family refused)1500 (Canceled Entry - Provider: Automatic Discharge Provider - Comment: Automatically canceled at discontinue of medication order)1600 (Canceled Entry - Provider: Automatic Discharge Provider - Comment: Automatically canceled at discontinue of medication order)1700 (Canceled Entry - Provider: Automatic Discharge Provider - Comment: Automatically canceled at discontinue of medication order) thiamine (Vitamin B-1) tablet 100 mg 100 mg, Oral, Daily, First dose on Fri01/26/22 at 0900, Until Discontinued, Routine thiamine (Vitamin B1) injection 200 mg 200 mg, Intravenous, Every 8 hours, 6 doses, First dose on Fri01/23/22 at 1300, Last dose on Fri01/25/22 at 0500, STAT 1338 (Given - Provid er: Camryn Capone RN) documented in this encounter 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
--- OUTSIDE RECORDS SUMMARY | 2024-08-04 20:06 | XMS_ITS | Encounter Summary ---
Author Organization Healthcare Address [address] [id number] Care Team Providers Care Electronic Security Technician Name Role Phone Tapestry, General External Provider Primary C are Provider Reason for Visit * Reason Comments Vomiting * Auth/Cert Specialty Diagnoses / Procedures Referred By Contac t Referred To Contact Diagnoses Acute vomiting Isaac Reyna MD [address] [place] [address] Phone: tel: fax: [facility] [address] [place] [address] Phone: tel: Referral ID Status Reason Start Date Expiration Date Visits Re quested Visits Authorized [id number] 1 Encounter Details Date Type Department Care Team (Latest Contact Info) Description 02/26/2021 12:52 PM EDT - 02/28/2021 2:02 PM EDT Hospital Encounter [facility] [address] [place] [address] Cinthya Velez MD [address] [place] [address] Isaac Reyna MD [address] [place] [address] Solitario Patel MD [address] [place] [address] Alcohol withdrawal syndrome without complication (CMS/HCC) (Primary Dx); Non-intractable vomiting with nausea, unspecified vomiting type; Acute alcoholic gastritis without hemorrhage; Tachycardia; Elevated LFTs Discharge Disposition: Home or Self Care Social History Tobacco Use Types Packs/Day Years Used Date Smoking Tobacco: Every Day Cigarettes 1 32 Tobacco Cessation:Ready to Q uit: No; Counseling Given: Yes Alcohol Use Standard Drinks/Week Comments Yes 21 (1 standard drink = 0.6 oz pure alcohol) 3 airplane bottles/day on weekdays; 6 airplane bottles/day on weekends Social Connection and Isolation Panel [NHANES] A nswer Date Recorded Frequency of Communication with Friends and Fami ly Not on file 02/27/2021 Frequency of Social Gatherings with Friends and Family Not on file 02/27/2021 Attends Zoroastrianism Services Not on file 02/27 Active Member [...] Recorded Patient Health Questionnaire-2 Score 2 02/27/2021 [facility]ational Stress Questionnaire Answer [...] in a usp (including now)? 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 No / Unsure 02/26/2021 3:01 PM EDT documented as of this encounter Last Filed Vital Signs Vital Sign Reading Time Taken Comments Blood Pressure 164/92 02/28/2021 7:28 AM EDT Pulse 80 02/28/2021 7:28 AM EDT Temperature 36.5 ??C (97.7 ??F) 02/28/2021 7:28 AM ED T Respiratory Rate 16 02/28/2021 7:28 AM EDT Oxygen Saturation 95% 02/28/2021 7:28 AM EDT Inhaled Oxygen Concentration - - Weight 70.2 kg (154 lb 12.2 oz) 021 12:50 PM EDT Height 162.6 cm (5' 4 ) 02/26/2021 12:5 0 PM EDT Body Mass Index 26.57 02/26/2021 12:50 PM EDT documented in this encounter Discharge Instructions * Attachments The following attachments cannot be sent through Care Everywhere. * Naltrexone Oral Tablet 50 mg (Hungarian) documented in this encounter Medications at Time of Discharge Ascorbic Acid (Vitamin C) 500 MG capsule Take 1 capsule by mouth 1 (one) time each day. 09/24/2021 Melatonin 5 MG tablet tablet Take 5 mg by mouth every night. 09/24/2021 Multiple Vitamin (MULTI-VITAMIN DAILY PO) Take 1 tablet by mouth 1 (one) time each day. 09/24/2021 PARoxetine (Paxil) 40 MG tablet Take 1 tablet (40 mg) by mouth 1 (one) time each day in the morning. 10/03/2023 QUEtiapine (SEROquel) 50 MG tablet Take 1 tablet (50 mg) by mouth every night. 05/14/2023 naltrexone (Vivitrol) 50 MG tablet Take 1 tablet (50 mg total) by mouth 1 (one) time each day. 30 tablet 03/01/2021 03/31/2021 documented as of this encounter Miscellaneous Notes * Progress Notes - Britta Cason - 02/28/2021 1:40 PM EDT Case Management Discharge Note Betty Levi 45 y.o. female CSN: [id number] Per patients bedside nurse, the patient is going home today with her mother. No other SW needs. * Discharge Summary - German Almonte MD - 02/28/2021 12:02 PM EDT Hospitalization Admit Date/Time: 02/26/2021 12:52 PM Admitting Attending: Isaac Reyna Discharge Date: 02/28/21 Discharge Attending Physician: Solitario Lundberg Md PCP name and Address: Rakan Dobson External ProviderMD [address] [place] [address] / [address] [address] Referring provider name and address: No referring provider defined for this encounter. Chief Concern, Brief History of Present Illness, and Hospital Course Betty Levi is a 45 y.o. female with a PMH significant for mood disorder, alcohol use disorderpresenting [facility] with nausea/vomiting and alcohol withdrawal. [facility] due to concern for upper GI blood loss in emesis. Hemoglobin stable throughout admission. No concern for ongoing GI bleeding. ?? Alcohol Use Disorder c/b Acute Alcohol Withdrawal - Roughly 72 hours from last drink. Pt has not scored on CIWA since 8am day prior to discharge. - Addiction Medicine consulted and evaluated patient. PLAN: - CIWA protocol followed. Patient treated with Thiamine and Folic Acid during admission. - Discharge with Naltrexone 50mg daily as recommended by Addiction Medicine - F/u with [facility] ?? Acute Liver Injury, Mixed cholestatic/hepatocellular picture??concerning for Alcoholic Hepatitis - Most likely secondary to alcohol use with classic 2:1 AST to ALT ratio however cannot rule out gallbladder involvement. Transaminases trending toward normal today. - Dylan's DF is 11.3 on admission, indicating good prognosis. Will not begin Glucocorticoid therapy.?? - No known history of liver disease - Patient refused ultrasound. Acute hepatitis panel negative. Plan: - Pt should follow up with PCP for monitoring of liver function as well as RUQ US ?? Tachycardia - Resolved. Secondary to acute alcohol withdrawal. Surgeries and Procedures - None Medication List .. Ascorbic Acid 500 MG capsule Melatonin 5 MG tablet tablet MULTI-VITAMIN DAILY PO naltrexone 50 MG tablet Commonly known as: Vivitrol Take 1 tablet (50 mg total) by mouth 1 (one) time each day. Start taking on: March 01, 2021 PARoxetine 40 MG tablet Commonly known as: Paxil QUEtiapine 50 MG tablet Commonly known as: SEROquel Where to Get Your Medications These medications were sent to [facility] [place] [id number] ?? naltrexone 50 MG tablet Discharge Diagnosis Alcohol withdrawal (CMS/HCC) There are no active hospital problems to display for this patient. Follow-Up / Post Discharge Instructions - Appointment with [facility] for Alcohol Use Disorder - PCP follow up within 2 weeks for repeat LFTs. Pt may benefit from RUQ US. Medication Changes: - Discontinue Olanzapine - Begin Naltrexone daily for alcohol cessation. Outpatient Follow-Up No future appointments. Test Results Pending At Discharge - None Pertinent Physical Exam At Time of Discharge Physical Exam Constitutional: Appearance: Normal appearance. Eyes: Extraocular Movements: Extraocular movements intact. Cardiovascular: Rate and Rhythm: Normal rate and regular rhythm. Pulmonary: Effort: Pulmonary effort is normal. Abdominal: General: Abdomen is flat. Skin: General: Skin is warm and dry. Neurological: General: No focal deficit present. Mental Status: She is alert and oriented to person, place, and time. Mental status is at baseline. Psychiatric: Mood and Affect: Mood normal. Behavior: Behavior normal. Thought Content: Thought content normal. Judgment: Judgment normal. Discharge Disposition/Condition Disposition: Home Condition: Stable (s/sx potential problems absent or manageable) Cosigned by Solitario Patel MD at 02/28/2021 1:10 PM EDT Associated attestation - Solitario Patel MD - 02/28/2021 1:10 PM EDT I saw and evaluated the patient with the resident/fellow. I discussed the case with the resident/fellow and agree with the findings and plan as documented. I spent less than 30 minutes preparing the discharge. Ms Levi notes she is feeling well. Eating well with no N/V. No Fevers. No shaking. Her liver be inflamed worries her. She understands she should stop drinking. Visit Vitals BP (!) 164/92 Pulse 80 Temp 36.5 ??C (97.7 ??F) Resp 16 General: No Acute Distress Neck: No JVD or lymphadenopathy CV: Heart Regular Rhythm, Regular Rate; No Murmur Lungs: Clear to Auscultation Abdomen: Soft, Non-tender, Non-distended; Active Bowel Sounds Ext: No edema or cyanosis Psych: Normal mood Alcohol Use Disorder c/b Acute Alcohol Withdrawal - Roughly 72 hours from last drink. Pt has not scored on CIWA since 8am day prior to discharge. - Addiction Medicine consulted and evaluated patient. PLAN: - CIWA protocol followed. Patient treated with Thiamine and Folic Acid during admission. - Discharge with Naltrexone 50mg daily as recommended by Addiction Medicine - F/u with [facility] Acute Liver Injury, Mixed cholestatic/hepatocellular picture concerning for Alcoholic Hepatitis - Most likely secondary to alcohol use with classic 2:1 AST to ALT ratio however cannot rule out gallbladder involvement. Transaminases trending toward normal today. - Maddrey's DF is 11.3 on admission, indicating good prognosis. Did not begin Glucocorticoid therapy. - Patient refused ultrasound. Acute hepatitis panel negative. Plan: - Pt should follow up with PCP for monitoring of liver function as well as RUQ US Tachycardia - Resolved. Further assessment and plan as outlined by Dr. Almonte. I have discussed the plan in detail with the patient. They voice understanding and agreement with the plan. * Progress Notes - Omega Koenig MD - 02/27/2021 4:52 PM EDT Subjective Patient is worried about her adult son who is traveling in the [facility]. She has not heard from him for several days and is worried that something has happened. She is also worried someone might break into her home and steal her money. She would like to leave today, but is agreeable to staying until tomorrow. Review of Systems Constitutional: Negative for chills and fever. Respiratory: Negative for cough, shortness of breath and wheezing. Cardiovascular: Negative for palpitations and leg swelling. Gastrointestinal: Negative for abdominal pain, constipation, diarrhea, nausea and vomiting. Genitourinary: Negative for difficulty urinating and dysuria. Skin: Negative for rash and wound. Neurological: Negative for dizziness, light-headedness and headaches. Psychiatric/Behavioral: Negative for agitation and hallucinations. The patient is nervous/anxious. Objective Physical Exam Vitals reviewed. Constitutional: General: She is not in acute distress. Appearance: Normal appearance. She is not ill-appearing. HENT: Head: Normocephalic and atraumatic. Mouth/Throat: Mouth: Mucous membranes are moist. Eyes: Extraocular Movements: Extraocular movements intact. Conjunctiva/sclera: Conjunctivae normal. Pupils: Pupils are equal, round, and reactive to light. Cardiovascular: Rate and Rhythm: Regular rhythm. Tachycardia present. Heart sounds: No murmur heard. Pulmonary: Effort: Pulmonary effort is normal. No respiratory distress. Breath sounds: Normal breath sounds. Abdominal: General: Bowel sounds are normal. There is no distension. Palpations: Abdomen is soft. Musculoskeletal: Right lower leg: No edema. Left lower leg: No edema. Skin: General: Skin is warm and dry. Findings: No rash. Neurological: General: No focal deficit present. Mental Status: She is alert. Mental status is at baseline. Psychiatric: Attention and Perception: She does not perceive auditory or visual hallucinations. Mood and Affect: Mood is anxious. Speech: Speech normal. Behavior: Behavior normal. Behavior is cooperative. Thought Content: Thought content is paranoid. Cognition and Memory: Cognition and memory normal. Last Recorded Vitals Blood pressure (!) 156/96, pulse 96, temperature 37 ??C (98.6 ??F), temperature source Oral, resp. rate 16, height 1.626 m (5' 4 ), weight 70.2 kg (154 lb 12.2 oz), SpO2 94 %. Assessment/Plan Principal Problem: Alcohol withdrawal (CMS/HCC) Active Problems: Alcohol use disorder, moderate, dependence (CMS/HCC) Betty Levi is a 45 y.o. female with a PMH significant for mood disorder, alcohol use disorderpresenting to [facility] with nausea/vomiting and alcohol withdrawal. #. Alcohol withdrawal Continues to score on CIWA protocol. Less than 72 hours from last drink. PLAN: -Continue CIWA, intermittent benzos -Thiamine, Folate #. Alcohol use disorder -TRACEY consulted, recommend starting naltrexone tomorrow. Patient to follow up with home clinic for ongoing recovery care. #. Concern for Upper GI Bleed - resolved - Hx of alcohol overuse with initial reported concern for coffee ground emesis, no evidence of hematemesis here; Hgb stable, and nausea/vomiting resolved. No history of varices. Plan: - Transition to po PPI ?? #. Acute Liver Injury, Mixed cholestatic/hepatocellular picture concerning for Alcoholic Hepatitis - Most likely secondary to alcohol use with classic 2:1 AST to ALT ratio however cannot rule out gallbladder involvement. Transaminases trending toward normal today. - Maddrey's DF is 11.3 on admission, indicating good prognosis. Will not begin Glucocorticoid therapy. - No known history of liver disease - Patient refused ultrasound. Acute hepatitis panel negative. Plan: - Monitor LFTs with CMP in AM ?? Tachycardia - Sinus tachycardia on EKG. Likely secondary to withdrawal. Improving. Plan: - Telemetry F: PO E: Monitor and replace prn N: Regular DVT Prophylaxis: Low risk; SHASHI = 0 Code Status: FULL Dispo: Acute care, likely home tomorrow Omega Koenig MD Internal Medicine and Pediatrics, PGY2 Pager #[phone] Cosigned by Solitario Patel MD at 02/27/2021 5:20 PM EDT Associated attestation - Solitario Patel MD - 02/27/2021 5:20 PM EDT I saw and evaluated the patient with the resident/fellow. I discussed the case with the resident/fellow and agree with the findings and plan as documented. * Consults - Mercy Langley NP - 02/27/2021 2:47 PM EDTAssociated Order(s): IP CONSULT TO ADDICTION MEDICINE Addiction Consult & Education Service Initial Assessment History of Present Illness: Betty Levi is a 45 y.o. female with past medical history of depression and alcohol use who presented from [facility] with emesis and ETOH withdrawal. There was initial concern for hematemesis at the OSH; however, no hematemesis here and labs WNL. Ms. Levi was found to have alcoholic hepatitis,mild and LFTs are being trended with RUQ US pending. [facility] was consulted for management of suspectedETOH use disorder. Ms. Levi is seen resting in bed, reports she is doing ok but would like to be discharged home. She states she does not have SI or HI and that it was a mistake for her to be taken to [facility]. She states that last night she was drinking and her mother called. The patient did not answer to her mother called for a well fare check and patient was found belligerent from ETOH use. Patient was then taken to [facility] and subsequently transferred to [facility]. Ms. Juárez states that she has many stressorsin her life that she uses ETOH to help cope with. 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 She states that she does not feel she is an alcoholic but she would like to stop drinking because her parents and children would like her to do so. Ms. Levi reports that she began using ETOH around 4 years ago and has been drinking 3 shots each day between 7pm-9pm and occasionally she will purchase 12 shots (airline bottles) and will consume those over Friday and Friday night. She states she limits her ETOH intake by purchasing only 3 airline bottles knowing that she cannot drive to get more after she drinks them. She denies ETOH withdrawal symptoms when she doesn't drink. Screens positive on CAGE quentionaire for others asking herto cut down and feeling like she herself needs to cut down. Denies eye adobe maker ETOH use. Patient states she has been going to [facility] for recovery support. She sees a therapist once monthly and then another therapist once weekly and she was starting to get involved in AA meetings. Reports her last drink to be yesterday. Ms. Juárez denies use of opioids, benzodiazepines, methamphetamines, cocaine, LSD, mushrooms, synthetics, THC. She denies injection use of any substances. Denies black outs or requiring hospitalization for ETOH use. Review of Systems: Review of Systems All other systems reviewed and are negative. Tobacco Use: 1 ppd Active Problems: Patient Active Problem List Diagnosis ??? Acute vomiting Past Medical History: No past medical history on file. G5 and P5 Surgical History: No past surgical history on file. Allergies: Patient has no known allergies. Social History: Social History Socioeconomic History ??? Marital status: Legally Spouse name: Not on file ??? Number of children: 5 ??? Years of education: Some College ??? Highest education level: Not on file Occupational History ??? 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 Smoking status: Current Every Day Smoker Packs/day: 1.00 Years: 32.00 Pack years: 32.00 Types: Cigarettes Substance and Sexual Activity ??? Alcohol use: Yes Alcohol/week: 21.0 - 30.0 standard drinks Types: 21 - 30 Shots of liquor per week Comment: 3 airplane bottles/day on weekdays; 6 airplane bottles/day on weekends ??? Drug use: Never Comment: denies current use ??? Sexual activity: Not on file Other Topics Concern ??? Not on file Social History Narrative ??? Not on file Social Determinants of Health Financial Resource Strain: ??? Difficulty of Paying Living Expenses: Food Insecurity: No Food Insecurity ??? Worried About Running Out of Food in the Last Year: Never true ??? Ran Out of Food in the Last Year: Never true Transportation Needs: ??? Lack of Transportation (Medical): ??? Lack of Transportation (Non-Medical): Physical Activity: ??? Days of Exercise per Week: ??? Minutes of Exercise per Session: Stress: Stress Concern Present ??? Feeling of Stress : Very much Social Connections: Unknown ??? Frequency of Communication with Friends and Family: Not on file ??? Frequency of Social Gatherings with Friends and Family: Not on file ??? Attends Zoroastrianism Services: Not on file ??? Active Member of Clubs or Organizations: Not on file ??? Attends Club or Organization Meetings: Not on file ??? Marital Status: Intimate Partner Violence: ??? Fear of Current or Ex-Partner: ??? Emotionally Abused: ??? Physically Abused: ??? Sexually Abused: Housing Stability: Unknown ??? Unable to Pay for Housing in the Last Year: No ??? Number of Places Lived in the Last Year: Not on file ??? Unstable Housing in the Last Year: No Transportation Needs: ??? Lack of Transportation (Medical): ??? Lack of Transportation (Non-Medical): Legal History: recently charged with promoting contraband Trauma/Abuse: denies Family History: Denies family history of substance use Current Medications: Current Facility-Administered Medications: ??? acetaminophen (Tylenol) tablet 650 mg, 650 mg, Oral, q8h PRN, German Almonte MD, 650 mg at 02/26/21 7665 ??? diazePAM (Valium) tablet 10 mg, 10 mg, Oral, q4h PRN, 10 mg at 02/27/21 0826 OR diazePAM (Valium) injection 10 mg, 10 mg, Intravenous, q4h PRN OR [DISCONTINUED] diazePAM (Valium) injection 10 mg, 10 mg, Intravenous, q4h PRN OR diazePAM (Valium) tablet 15 mg, 15 mg, Oral, q4h PRN OR diazePAM (Valium) injection 15 mg, 15 mg, Intravenous, q4h PRN OR diazePAM (Valium) injection 20 mg, 20 mg, Intravenous, q4h PRN, German Almonte MD ??? folic acid (Folvite) tablet 1 mg, 1 mg, Oral, Daily, German Almonte MD, 1 mg at 02/27/21 0829 ??? melatonin tablet 6 mg, 6 mg, Oral, Nightly, Omega Koenig MD ??? nicotine (Nicoderm CQ) 21 MG/24HR patch 1 patch, 1 patch, Transdermal, Daily, 1 patch at 02/27/21 0900 FOLLOWED BY [START ON 04/09/2021] nicotine (Nicoderm CQ) 14 MG/24HR patch 1 patch, 1 patch, Transdermal, Daily FOLLOWED BY [START ON 04/23/2021] nicotine (Nicoderm CQ) 7 MG/24HR patch 1 patch, 1 patch, Transdermal, Daily, German Almonte MD ??? ondansetron ODT (Zofran-ODT) disintegrating tablet 4 mg, 4 mg, Oral, q6h PRN, German Almonte MD ??? [START ON 02/28/2021] pantoprazole (ProtoNix) EC tablet 40 mg, 40 mg, Oral, Daily before breakfast, Omega Koenig MD ??? PARoxetine (Paxil) tablet 40 mg, 40 mg, Oral, Daily, Omega Koenig MD ??? QUEtiapine (SEROquel) tablet 50 mg, 50 mg, Oral, Nightly, Omega Koenig MD ??? senna (Senokot) tablet 17.2 mg, 2 tablet, Oral, Nightly, German Almonte MD, 17.2 mg at 02/26/21 2156 ??? [COMPLETED] Insert peripheral IV, , , Once AND [COMPLETED] Saline lock IV, , , Once ANDsodium chloride 0.9 % flush 10 mL, 10 mL, Intravenous, q8h PRN, German Almonte MD ??? [START ON 03/01/2021] thiamine (Vitamin B-1) tablet 100 mg, 100 mg, Oral, Daily, German Almonte MD ??? thiamine (Vitamin B-1) tablet 100 mg, 100 mg, Oral, Daily, German Almonte MD, 100 mg at 02/27/21 0825 Home Medications: Current Discharge Medication List CONTINUE these medications which have NOT CHANGED Details Ascorbic Acid (Vitamin C) 500 MG capsule Take 1 capsule by mouth 1 (one) time each day. Melatonin 5 MG tablet tablet Take 5 mg by mouth every night. Multiple Vitamin (MULTI-VITAMIN DAILY PO) Take 1 tablet by mouth 1 (one) time each day. OLANZapine (ZyPREXA) 5 MG tablet Take 5 mg by mouth every night. PARoxetine (Paxil) 40 MG tablet Take 40 mg by mouth 1 (one) time each day in the morning. QUEtiapine (SEROquel) 50 MG tablet Take 50 mg by mouth every night. Labs: @LABBRIEF@ negative Physical Exam: Physical Exam Vitals and nursing note reviewed. Exam conducted with a fpga design engineer present. Constitutional: Appearance: She is normal weight. HENT: Head: Normocephalic. Nose: Nose normal. Mouth/Throat: Mouth: Mucous membranes are moist. Pharynx: Oropharynx is clear. Eyes: Extraocular Movements: Extraocular movements intact. Conjunctiva/sclera: Conjunctivae normal. Pupils: Pupils are equal, round, and reactive to light. Cardiovascular: Rate and Rhythm: Normal rate and regular rhythm. Pulses: Normal pulses. Heart sounds: Normal heart sounds. Pulmonary: Effort: Pulmonary effort is normal. Breath sounds: Normal breath sounds. Abdominal: General: Abdomen is flat. Palpations: Abdomen is soft. Musculoskeletal: General: Normal range of motion. Skin: General: Skin is warm. Capillary Refill: Capillary refill takes less than 2 seconds. Neurological: General: No focal deficit present. Mental Status: She is alert. Mental status is at baseline. Psychiatric: Mood and Affect: Mood normal. Thought Content: Thought content normal. Judgment: Judgment normal. Visit Vitals BP (!) 152/96 Pulse 101 Temp 37.1 ??C (98.7 ??F) Resp 18 Ht 1.626 m (5' 4 ) Wt 70.2 kg (154 lb 12.2 oz) SpO2 98% BMI 26.57 kg/m?? Smoking Status Current Every Day Smoker BSA 1.78 m?? COWS: 0 CIWA: 0 DSM Substance Use Disorder criteria - past 12 months : Failure to fulfill responsibilities Use in hazardous situations Cravings Social/interpersonal problems Using larger amounts or longer than intended Cannot cut down Extensive time spent in getting/using/recovering Given up or decrease other important parts of life Ongoing use despite psychological/physical problems Presence of tolerance Presence of withdrawal Total: 5 Assessment: Betty Levi is a 45 y.o. female with past medical history of depression and alcohol use who presented from [facility] with emesis and ETOH withdrawal. There was initial concern for hematemesis at the OSH; however, no hematemesis here and labs WNL. Ms. Levi was found to have alcoholic hepatitis,mild and LFTs are being trended with RUQ US pending. [facility] was consulted for management of suspectedETOH use disorder. Alcohol Use Disorder, Moderate: Patient has moderate alcohol use disorder. At this time the patient is on CIWA. In the patient who is at risk for severe withdrawal from alcohol, benzodiazepines are first-line treatment. No single benzodiazepine is more effective than another, however, utilizing longer-acting are preferred as they provide better control of withdrawal symptoms and rebound symptoms. In the setting of severe liver disease, benzodiazepines which have minimal hepatic metabolism are preferred (lorazepam). Thiamine should be administered to prevent Wernicke encephalopathy. Additionally, it is recommended to include magnesium in setting of hypomagnesemia, cardiac arrhythmias, electrolyte abnormalities, and prior history of alcohol withdrawal seizures. Discussed risk/benefit/pharmacology of Naltrexone for alcohol use disorder, patient is interested in starting this medication so will order Naltrexone 50mg PO once daily to start today. Patient would like to continue to follow with [facility] for recovery support. Patient was provided with ETOH resource packet for additional recovery information. Nicotine Dependence Discussed with patient about smoking cessation complications from nicotine use including respiratory, cardiovascular, and oncologic. Advice on smoking cessation was discussed including different methods of quitting including medications and support systems for smoking cessation. Encouraged continued use of NRT during hospitalization. Treatment Plan Discussed with patient the necessity for medical treatment, part of which may be medication for alcohol use disorder. Patient and provider reviewed treatment agreement, and patient had the opportunity to ask questions. Patient is aware that he/she will be required to provide random urine for drug screens, spend time with ACES counselor and PSS, and/or attend group sessions as able. Complete treatment agreement can be found in chart. Patient is agreeable to treatment agreement as outlined, signed and placed in chart. Plan: Start Naltrexone 50mg once daily Patient to continue recovery care with home clinic Continue conversations regarding recovery resources, patient provided with ETOH resource packet Will provide harm/risk reduction education Will provide syringe exchange information Will review safe injection practices Will provide intranasal naloxone prior to discharge Recommend NRT if medically appropriate Discharge planning: please call at least 48 hours prior to anticipated discharge Please page with questions. Mercy Langley, KHUSHI Pager: [phone] [email or web address] Total visit time was 45 minutes, with greater than 50% of time spent on coordination of care and counseling the patient on appropriate medication administration, the mechanism of action of medications, possible medication side effects, coping strategies, managing thoughts/urges/cravings, pain management, safer injection practices, overdose prevention education, naloxone administration, relapse prevention, and aftercare planning. * Progress Notes - Funmilayo Stevenson - 02/27/2021 2:46 PM EDT Functional Status Independent Independent Living Arrangements Children Children Type of Residence Private residence Private residence Smoker in the Home? -- -- Assistive Device None None Income Information Income Source Unknown Unknown Income/Expense Information -- -- Current Resources Utilized None None Housing Circumstances-Z Codes Housing Circumstances (select all that apply) Low Income (101-300% Federal Poverty Guidlines) - Z596 Low Income (101-300% Federal Poverty Guidlines) - Z596 Referral To Pt has no DME or HH needs. Pt PCP is JUAN Stevenson Pharmacy is [email or web address] in [place] Pt has not had COVID screen No other needs at this time. * H&P - German Almonte MD - 02/26/2021 3:37 PM EDT Images from the original note were not included. Consults History Of Present Illness Betty Levi is a 45 y.o. female with alcohol use disorder and depression who presents to [facility] as a transfer from [facility] due to concern for recurrent emesis. Ms. Levi was admitted to [facility] yesterday evening after being detained by police. After arrival at [facility], she experienced 8 or 9 episodes of vomiting that was concerning for a coffee ground like appearance. She states that she had been having some nausea and abdominal discomfort after drinking a coke and eating a peanut butter and jelly sandwich. She attributed the coloration of her emesis to that of the food she hadingested, however staff at [facility] were concerned for GI bleed. She denies any bright red blood in her emesis, hematochezia, or melena. No prior history of bloody emesis or known varices. Ms. Levi reports daily alcohol and tobacco use for many years. She reports typically drinking 3 shots per day, however on Friday she had approximately 12. She denies any prior history of alcohol withdrawal symptoms, hospitalizations for alcohol withdrawal, or seizures. She denies any hallucinations but does report some anxiety, tremulousness, and telemetry is notable for tachycardia. ED workup notable for elevated liver enzymes in a 2:1 AST to ALT ratio suggestive of alcohol induced liver injury. Past Medical History - Alcohol Use Disorder - Depression She has no past medical history on file. Surgical History - Section She has no past surgical history on file. Family History - Father: HTN - Maternal Aunt: DM - Brother: HTN No family history on file. Social History - Unable to quantify tobacco use but states she smokes as much as she can. - Alcohol use reported 3 shots of hard liquor per day to myself, however to ED physician stated three large cocktails per day. - No recreational drug use. She has no history on file for tobacco use, alcohol use, and drug use. Occupational History none Occupational History Not on file Occupational Exposure Concern Not on file Employer: No address on file. Travel History Relevant International Travel History: Travel Screening Question Response In the last month, have you been in contact with someone who was confirmed or suspected to have Coronavirus / COVID-19? No / Unsure Have you had a COVID-19 viral test in the last 14 days? No Do you have any of the following new or worsening symptoms? None of these Have you traveled internationally or domestically in the last month? No Travel History Travel since 01/26/21 No documented travel since 01/26/21 Relevant Domestic Travel History: None Immunizations not reviewed VACCINE/DOSE Flu Tetanus Pneumovax Shingles Allergies Patient has no known allergies. Medications Current Facility-Administered Medications Medication Dose Route Frequency Provider Last Rate Last Admin acetaminophen (Tylenol) tablet 650 mg 650 mg Oral q8h PRN German Almonte MD diazePAM (Valium) tablet 10 mg 10 mg Oral Once German Almonte MD Or diazePAM (Valium) injection 10 mg 10 mg Intravenous Once German Almonte MD diazePAM (Valium) tablet 10 mg 10 mg Oral q4h PRN German Almonte MD Or diazePAM (Valium) injection 10 mg 10 mg Intravenous q4h PRN German Almonte MD Or diazePAM (Valium) injection 10 mg 10 mg Intravenous q4h PRN German Almonte MD Or diazePAM (Valium) tablet 15 mg 15 mg Oral q4h PRN German Almonte MD Or diazePAM (Valium) injection 15 mg 15 mg Intravenous q4h PRN German Almonte MD Or diazePAM (Valium) injection 20 mg 20 mg Intravenous q4h PRN German Almonte MD folic acid (Folvite) tablet 1 mg 1 mg Oral Daily German Almonte MD nicotine (Nicoderm CQ) 21 MG/24HR patch 1 patch 1 patch Transdermal Daily German Almonte MD Followed by [START ON 04/09/2021] nicotine (Nicoderm CQ) 14 MG/24HR patch 1 patch 1 patch Transdermal Daily German Almonte MD Followed by [START ON 04/23/2021] nicotine (Nicoderm CQ) 7 MG/24HR patch 1 patch 1 patch Transdermal Daily German Almonte MD ondansetron ODT (Zofran-ODT) disintegrating tablet 4 mg 4 mg Oral q6h PRN German Almonte MD pantoprazole (ProtoNix) injection 40 mg 40 mg Intravenous BID Cinthya Velez MD senna (Senokot) tablet 17.2 mg 2 tablet Oral Nightly German Almonte MD sodium chloride 0.9 % flush 10 mL 10 mL Intravenous q8h PRN German Almonte MD [START ON 03/01/2021] thiamine (Vitamin B-1) tablet 100 mg 100 mg Oral Daily German Almonte MD thiamine (Vitamin B-1) tablet 100 mg 100 mg Oral Daily German Almonte MD No current outpatient medications on file. Review of Systems Constitutional: Negative. HENT: Negative. Respiratory: Negative. Cardiovascular: Negative. Gastrointestinal: Positive for nausea and vomiting. Negative for abdominal distention, abdominal pain, blood in stool, constipation, diarrhea and rectal pain. Endocrine: Negative. Genitourinary: Negative. Musculoskeletal: Negative. Allergic/Immunologic: Negative. Neurological: Negative. Hematological: Negative. Psychiatric/Behavioral: Negative. Physical Exam Constitutional: Appearance: Normal appearance. HENT: Head: Normocephalic and atraumatic. Eyes: General: No scleral icterus. Extraocular Movements: Extraocular movements intact. Conjunctiva/sclera: Conjunctivae normal. Cardiovascular: Rate and Rhythm: Regular rhythm. Tachycardia present. Heart sounds: Normal heart sounds. Pulmonary: Effort: Pulmonary effort is normal. Breath sounds: Normal breath sounds. Abdominal: General: Abdomen is flat. Palpations: Abdomen is soft. Musculoskeletal: General: Normal range of motion. Skin: General: Skin is warm and dry. Neurological: General: No focal deficit present. Mental Status: She is alert and oriented to person, place, and time. Psychiatric: Mood and Affect: Mood normal. Behavior: Behavior normal. Last Recorded Vitals Blood pressure (!) 162/91, pulse (!) 116, temperature 36.8 ??C (98.3 ??F), temperature source Oral,resp. rate 19, height 1.626 m (5' 4 ), weight 70.2 kg (154 lb 12.2 oz), SpO2 100 %. Relevant Results WBC 14 Potassium 3.5 Alkaline Phosphatase 168 AST 103 ALT 40 Tbili 1.2 Assessment/Plan Principal Problem: Acute vomiting Nausea with Emesis, concern for Upper GI Bleed - Hx of alcohol overuse; may be component of alcoholic gastritis - Reports 8/9 episodes of nonbloody, nonbilious emesis - One episode of emesis since arrival that was partially bilious, no signs of coffee ground or BRB - No history of varices Plan: - Monitor Hgb - Begin PPI for gastritis - Check Lipase - IVF resuscitation as needed - Will monitor overnight. Low suspicion for GI bleed at this time Acute Liver Injury, Mixed cholestatic/hepatocellular picture concerning for Alcoholic Hepatitis - Most likely secondary to alcohol use with classic 2:1 AST to ALT ratio however cannot rule out gallbladder involvement - Dylan's DF is 11.3, indicating good prognosis. Will not begin Glucocorticoid therapy. - No known history of liver disease Plan: - RUQ US - Monitor LFTs with CMP in AM - Hepatitis Panel Tachycardia - Appears to be sinus tachycardia on telemetry - Likely secondary to withdrawal Plan: - ECG to assess for abnormal underlying rhythm F: PO E: Normal on arrival. Monitor and replete PRN N: Clear liquid for now given emesis. DVT ppx: SCDs given concern for GI bleed Dispo: Admit to medicine for overnight monitoring. Code: FULL German Almonte MD Internal Medicine, PGY-2 Pager: [phone] Cosigned by Isaac Reyna MD at 02/27/2021 4:29 PM EDT Associated attestation - Isaac Reyna MD - 02/27/2021 4:29 PM EDT I saw and evaluated the patient with the resident/fellow. I discussed the case with the resident/fellow and agree with the findings and plan as documented. This note reflects my evaluation of the patient on 02/26/21. 45yo F with alcohol use disorder and depression presents from [facility] with emesis and alcohol withdrawal. 1. Alcohol withdrawal- We are monitoring her withdawal with CIWA and treating her with prn valium. She is in mild withdrawal on my exam. Mildly tremulous. 2. Emesis- Concern for hematemesis but may have been foodstuff (jelly). No hematemesis here. Hgb isnormal, as is INR. Treating empirically with IV PPI. No need to consult GI at this time. 3. Alcoholic hepatitis, mild- Her DF is low so no need for steroids. Will follow LFTs. Hepatitis panel and RUQ US pending to ensure there is not another cause for hepatitis. 4. Elevated anion gap- Likely alcoholic ketoacidosis (or starvation). Repeat value tomorrow to ensure resolution. 5. Tachycardia- I personally reviewed the EKG which is normal sinus rhythm (not tachy at that time). Likely due to #1. Follow clinically. * ED Attestation Note - Cinthya Velez MD - 02/26/2021 11:51 AM EDT Seen by attending only Cinthya Velez MD 02/27/21 0752 * ED Attestation Note - Cinthya Velez MD - 02/26/2021 11:51 AM EDT This documentation was recorded by Kelvin Gill acting as a scribe in my presence at the time of theencounter and accurately reflects the service I personally performed and the decisions made by me. Cinthya Velez MD 03/31/21 1609 * Addendum Note - Cinthya Velez MD - 02/26/2021 11:51 AM EDTEncounter addended by: Cinthya Velez MD on: 03/31/2021 4:53 PM Actions taken: Clinical Note Signed * ED Provider Notes - Cinthya Velez MD - 02/26/2021 11:51 AM EDT Images from the original note were not included. HPI Chief Complaint Patient presents with ??? Vomiting Patient is a 45 y/o female presenting from [facility] with 1 day of nausea and vomiting. Patient states she was eating a peanut butter and jelly sandwich at an inpatient psychiatric facility this morning when she became nauseated and vomited. Pt compares this vomiting and associated nausea to acid reflux in the past. Patient reports 9 episodes of non-bloody, non-bilious emesis since onset. Patient states some emesis may have been coffee ground consistency but she believes this to bethe jelly she ate. She drinks alcohol daily--3 airplane-size bottles/day on weekdays and 6 on the weekends. Last drink was >24 hours ago as she was brought to [facility] on emergency detainment by the police. Pt is visibly shaky but denies h/o withdrawal symptoms, says she doesn't drink that much...I'm not an alcoholic. No other complaints at this time. No data recorded Patient History No past medical history on file. No past surgical history on file. No family history on file. Tobacco Use ??? Smoking status: Not on file Substance Use Topics ??? Alcohol use: Not on file ??? Drug use: Not on file none Occupational History ??? Not on file Occupational Exposure Concern ??? Not on file Employer: No address on file. Travel History Relevant International Travel History: Travel Screening No screening recorded since 02/25/21 1252 Travel History Travel since 01/26/21 No documented travel since 01/26/21 Relevant Domestic Travel History: n/a Immunization History reviewed VACCINE/DOSE Flu Tetanus Pneumovax Shingles No Known Allergies Review of Systems Review of Systems Gastrointestinal: Positive for nausea and vomiting. Negative for abdominal distention, abdominal pain, blood in stool, constipation and diarrhea. Genitourinary: Negative for dysuria, flank pain, hematuria, vaginal bleeding and vaginal discharge. All other systems reviewed and are negative. Physical Exam ED Triage Vitals [02/26/21 1250] Temp Heart Rate Resp BP 36.8 ??C (98.3 ??F) (!) 130 18 (!) 162/91 SpO2 Temp Source Heart Rate Source Patient Position 100 % Oral Monitor -- BP Location FiO2 (%) Right arm -- Physical Exam Vitals and nursing note reviewed. Constitutional: General: She is not in acute distress. Appearance: Normal appearance. She is well-developed and normal weight. HENT: Head: Normocephalic and atraumatic. Eyes: General: No scleral icterus. Conjunctiva/sclera: Conjunctivae normal. Comments: Petechia to bilateral eyes. Cardiovascular: Rate and Rhythm: Regular rhythm. Tachycardia present. Heart sounds: Normal heart sounds. No murmur heard. Pulmonary: Effort: Pulmonary effort is normal. No respiratory distress. Breath sounds: Normal breath sounds. Abdominal: General: Abdomen is flat. Palpations: Abdomen is soft. Tenderness: There is no abdominal tenderness. Comments: Clear/yellow emesis in basin Musculoskeletal: Cervical back: Neck supple. Skin: General: Skin is warm and dry. Neurological: Mental Status: She is alert and oriented to person, place, and time. Cranial Nerves: No cranial nerve deficit. Comments: Tremor present in hands and voice. CIWA=17 Psychiatric: Behavior: Behavior normal. Behavior is cooperative. ED Course & MDM MDM Number of Diagnoses or Management Options Diagnosis management comments: Labs Reviewed CBC WITH AUTO DIFFERENTIAL - Abnormal WBC Count 14.34 (*) RBC Count 4.33 HGB 12.2 HCT 37.6 Platelet Count 330 MCV 87 MCH 28.2 MCHC 32.4 RDW 19.9 (*) MPV 9.8 nRBC 0.0 Differential Type Automated Neutrophils % 88.0 Lymphocytes % 6.0 Monocytes % 5.0 Eosinophils % 0.0 Basophils % 1.0 Immature Granulocytes % 0.0 Neutrophils Absolute 12.64 (*) Lymphocytes Absolute 0.83 (*) Monocytes Absolute 0.74 Eosinophils Absolute 0.00 Basophils Absolute 0.08 Immature Granulocytes Absolute 0.05 Narrative: Therapeutic decision making should be based on absolute values, rather than percentages. LIPASE, PLASMA - Abnormal Lipase, Plasma 17 (*) COMPREHENSIVE METABOLIC PANEL, PLASMA - Abnormal Glucose, Plasma 146 (*) BUN, Plasma 16 Creatinine, Plasma 0.92 BUN/Creatinine Ratio 17 Sodium, Plasma 138 Potassium, Plasma 3.5 (*) Chloride, Plasma 98 CO2, Plasma 23 Anion Gap 17 (*) Total Calcium, Plasma 8.8 (*) Total Protein 7.9 Albumin, Plasma 4.1 AST, Plasma 103 (*) ALT, Plasma 40 (*) Alkaline Phosphatase, Plasma 168 (*) Total Bilirubin, Plasma 1.2 (*) eGFR >60 eGFR, if AFR/AM >60 PROTHROMBIN TIME(PT) / INR - Normal Prothrombin Time 14.2 INR 1.1 Narrative: OPTIMAL INR RANGES FOR PATIENT ON ORAL ANTICOAGULANT THERAPY Prevention of venous thromboembolism INR 2.0 to 3.0 In patients with heart disease: Atrial fibrillation INR 2.0 to 3.0 Valvular heart disease INR 2.0 to 3.0 Tissue heart valves INR 2.0 to 3.0 Mechanical prosthetic valves INR 2.5 to 3.5 Prevention of recurrent OH INR 2.5 to 3.5 ETHYL ALCOHOL PLASMA - Normal Ethanol Plasma <10 Narrative: Enzymatic Assay: Performed on Tr Fred. DRUG ABUSE SCREEN, URINE , URINE Patient is a 45 y/o female with PMH significant for alcoholism and depression presenting with 1 dayof nausea and vomiting. Upon exam, patient is nontoxic appearing, afebrile, and neurovascularly intact. She is tremulous with vomiting and initial CIWA=17. Pt given 1L rally pack and Valium 5mg po dose with improvement in her tachycardia from 130 to 110s. Pt looks better, n/v improved, and started with Protonix 40mg IV x1 dose. I think she has some component of alcohol withdrawal and alcoholic gastritis. She's not had any coffee ground emesis here. Hb/hct stable, no significant lab abnormalities except for transaminitis and WBC=14.3. Discussed with medicine and will admit for further care. Isaac Gill 02/26/21 1310 Isaac Gill 02/26/21 1320 Cinthya Velez MD 02/26/21 1452 * ED Triage Notes - Sweta Segundo RN - 02/26/2021 11:51 AM EDT Patient sent from [facility] to be evaluated for possible GI bleed. Patient has a history of daily vodka use and was petitioned to [facility] on Friday from [facility]. Today, staff at [facility] noticed patient'slooked like coffee grounds documented in this encounter Plan of Treatment Not on file documented as of this encounter Procedures Procedure Name Priority Date/Time Associated Diagnosis Comments COMPREHENSIVE METABOLIC PANEL, PLASMA Routine 02/28/2021 1:32 AM EDT CBC W/O DIFFERENTIAL Routine 02/27/2021 2:55 AM EDT COMPREHENSIVE METABOLIC PANEL, PLASMA Routine 02/27/2021 2:55 AM EDT ACUTE HEPATITIS PANEL Routine 02/26/2021 6:39 PM EDT LIPASE, PLASMA Routine 02/26/2021 6:39 PM EDT ECG ADULT Routine 02/26/2021 4:42 PM EDT DRUG ABUSE SCREEN, URINE STAT 02/26/2021 2:37 PM EDT , URINE STAT 02/26/2021 2:37 PM EDT ECG ADULT STAT 02/26/2021 1:22 PM EDT ETHYL ALCOHOL PLASMA STAT 02/26/2021 1:19 PM EDT PROTHROMBIN TIME(PT) / INR STAT 02/26/2021 1:19 PM EDT CBC WITH AUTO DIFFERENTIAL STAT 02/26/2021 1:19 PM EDT LIPASE, PLASMA STAT 02/26/2021 1:19 PM EDT COMPREHENSIVE METABOLIC PANEL, PLASMA STAT 02/26/2021 1:19 PM EDT documented in this encounter Results * (ABNORMAL) Comprehensive Metabolic Panel, Plasma (02/28/2021 1:32 AM EDT) [facility] Glucose, Plasma 126(H) 74 - 99 mg/dL 02/28/2021 2:22 AM EDT [facility] BUN, Plasma 12 7 - 21 mg/dL 02/28/2021 2:22 AM EDT [facility] Creatinine, Plasma 0.87 0.60 - 1.10 mg/dL 02/28/2021 2:22 AM EDT [facility] BUN/Creatinine Ratio 14 02/28/2021 2:22 AM EDT [facility] Sodium, Plasma 140 136 - 145 mmol/L 02/28/2021 2:22 AM EDT [facility] Potassium, Plasma 3.6(L) 3.7 - 4.8 mmol/L 02/28/2021 2:22 AM EDT [facility] Chloride, Plasma 105 97 - 107 mmol/L 02/28/2021 2:22 AM EDT [facility] CO2, Plasma 25 22 - 29 mmol/L 02/28/2021 2:22 AM EDT [facility] Anion Gap 10 6 - 16 mmol/L 02/28/2021 2:22 AM EDT [facility] Total Calcium, Plasma 8.9 8.9 - 10.2 mg/dL 02/28/2021 2:22 AM EDT [facility] Total Protein 6.5 6.3 - 7.9 g/dL 02/28/2021 2:22 AM EDT [facility] Albumin, Plasma 3.4(L) 3.5 - 5.2 g/dL 02/28/2021 2:22 AM EDT [facility] AST, Plasma 49(H) 11 - 32 U/L 02/28/2021 2:22 AM EDT [facility] ALT, Plasma 27 8 - 33 U/L 02/28/2021 2:22 AM EDT [facility] Alkaline Phosphatase, Plasma 148(H) 35 - 104 U/L 02/28/2021 2:22 AM EDT [facility] Total Bilirubin, Plasma 0.3 0.2 - 1.1 mg/dL 02/28/2021 2:22 AM EDT [facility] eGFR >60 >60 mL/min/1.7 3m*2 02/28/2021 2:22 AM EDT [facility] Comment:eGFR = estimated GFR ; eGFR units = mL/min/1.73 sq meters Chronic Kidney Disease is considered if eGFR <60 mL/min/1.73 sq meters Kidney failure is considered if eGFR is <15 mL/min/1.73 sq meters. eGFR assumes steady state plasma creatinine concentration; not applicable if renal function is rapidly changing or patient is on dialysis. eGFR, if AFR/AM >60 >60 mL/min/1.7 3m*2 02/28/2021 2:22 AM EDT [facility] Comment:eGFR = estimated GFR ; eGFR units = mL/min/1.73 sq meters Chronic Kidney Disease is considered if eGFR <60 mL/min/1.73 sq meters Kidney failure is considered if eGFR is <15 mL/min/1.73 sq meters. eGFR assumes steady state plasma creatinine concentration; not applicable if renal function is rapidly changing or patient is on dialysis. Blood Venous blood specimen / Unknown Venipuncture / Unknown 02/28/2021 1:32 AM EDT 02/28/2021 1:51 AM EDT us Solitario Patel MD LAB BLOOD ORDERABLES Final Resul t [facility] [address] [place] [id number] * (ABNORMAL) Comprehensive metabolic panel (02/27/2021 2:55 AM EDT) Glucose, Plasma 125(H) 74 - 99 mg/dL 02/27/2021 3:37 AM EDT [facility] BUN, Plasma 11 7 - 21 mg/dL 02/27/2021 3:37 AM EDT [facility] Creatinine, Plasma 0.74 0.60 - 1.10 mg/dL 02/27/2021 3:37 AM EDT [facility] BUN/Creatinine Ratio 15 02/27/2021 3:37 AM EDT [facility] Sodium, Plasma 135(L) 136 - 145 mmol/L 02/27/2021 3:37 AM EDT [facility] Potassium, Plasma 3.5(L) 3.7 - 4.8 mmol/L 02/27/2021 3:37 AM EDT [facility] Chloride, Plasma 101 97 - 107 mmol/L 02/27/2021 3:37 AM EDT [facility] CO2, Plasma 22 22 - 29 mmol/L 02/27/2021 3:37 AM EDT [facility] Anion Gap 12 6 - 16 mmol/L 02/27/2021 3:37 AM EDT [facility] Total Calcium, Plasma 8.6(L) 8.9 - 10.2 mg/dL 02/27/2021 3:37 AM EDT [facility] Total Protein 7.1 6.3 - 7.9 g/dL 02/27/2021 3:37 AM EDT [facility] Albumin, Plasma 3.6 3.5 - 5.2 g/dL 02/27/2021 3:37 AM EDT [facility] AST, Plasma 70(H) 11 - 32 U/L 02/27/2021 3:37 AM EDT [facility] ALT, Plasma 33 8 - 33 U/L 02/27/2021 3:37 AM EDT [facility] Alkaline Phosphatase, Plasma 152(H) 35 - 104 U/L 02/27/2021 3:37 AM EDT [facility] Total Bilirubin, Plasma 1.1 0.2 - 1.1 mg/dL 02/27/2021 3:37 AM EDT [facility] eGFR >60 >60 mL/min/1.7 3m*2 02/27/2021 3:37 AM EDT [facility] Comment:eGFR = estimated GFR ; eGFR units = mL/min/1.73 sq meters Chronic Kidney Disease is considered if eGFR <60 mL/min/1.73 sq meters Kidney failure is considered if eGFR is <15 mL/min/1.73 sq meters. eGFR assumes steady state plasma creatinine concentration; not applicable if renal function is rapidly changing or patient is on dialysis. eGFR, if AFR/AM >60 >60 mL/min/1.7 3m*2 02/27/2021 3:37 AM EDT [facility] Comment:eGFR = estimated GFR ; eGFR units = mL/min/1.73 sq meters Chronic Kidney Disease is considered if eGFR <60 mL/min/1.73 sq meters Kidney failure is considered if eGFR is <15 mL/min/1.73 sq meters. eGFR assumes steady state plasma creatinine concentration; not applicable if renal function is rapidly changing or patient is on dialysis. Blood Venous blood specimen / Unknown 02/27/2021 2:55 AM EDT 02/27/2021 3:17 AM EDT us Isaac Reyna MD LAB BLOOD ORDERABLES Final Re sult [facility] [address] [place] [address] * (ABNORMAL) CBC (02/27/2021 2:55 AM EDT) [facility] Signature WBC Count 6.70 3.70 - 10.30 10*3/uL LAB HEMATOLOGY METHOD 02/27/2021 3:21 AM EDT [facility] RBC Count 4.02 3.90 - 5.20 10*6/uL LAB HEMATOLOGY METHOD 02/27/2021 3:21 AM EDT [facility] HGB 11.2 11.2 - 15.7 g/dL LAB HEMATOLOGY METHOD 02/27/2021 3:21 AM EDT [facility] HCT 36.3 34.0 - 45.0 % LAB HEMATOLOGY METHOD 02/27/2021 3:21 AM EDT [facility] Platelet Count 237 155 - 369 10*3/uL LAB HEMATOLOGY METHOD 02/27/2021 3:21 AM EDT [facility] MCV 90 79 - 98 fL LAB HEMATOLOGY METHOD 02/27/2021 3:21 AM EDT [facility] MCH 27.9 26.0 - 32.0 pg LAB HEMATOLOGY METHOD 02/27/2021 3:21 AM EDT [facility] MCHC 30.9 30.7 - 35.5 g/dL LAB HEMATOLOGY METHOD 02/27/2021 3:21 AM EDT [facility] RDW 19.8(H) 11.5 - 14.5 % LAB HEMATOLOGY METHOD 02/27/2021 3:21 AM EDT [facility] MPV 9.7 8.8 - 12.5 fL LAB HEMATOLOGY METHOD 02/27/2021 3:21 AM EDT [facility] nRBC 0.0 <=0.0 per 100 WBCs LAB HEMATOLOGY METHOD 02/27/2021 3:21 AM EDT [facility] Blood Venous blood specimen / Unknown 02/27/2021 2:55 AM EDT 02/27/2021 3:16 AM EDT us Cinthya Velez MD LAB BLOOD ORDERABLES Final R esult [facility] [address] [place] [address] * Hepatitis panel, acute (02/26/2021 6:39 PM EDT) Hepatitis B Surf Antigen Negative Negative 02/26/2021 11:56 PM EDT [facility] Hepatitis C Antibody Negative Negative 02/26/2021 11:56 PM EDT [facility] Hepatitis A Antibody IgM Negative Negative 02/26/2021 11:56 PM EDT [facility] Hepatitis B Core Antibody IgM Negative Negative 02/26/2021 11:56 PM EDT [facility] Blood Venous blood specimen / Unknown Venipuncture / Unknown 02/26/2021 6:39 PM EDT 02/26/2021 6:42 PM EDT Isaac Reyna MD LAB BLOOD ORDERABLES Final Re sult Performing Organization Address City/[facility]/ZIP Co de Phone Number [facility] [address] [place] [address] * (ABNORMAL) Lipase (02/26/2021 6:39 PM EDT) Lipase, Plasma 16(L) 19 - 63 U/L 02/26/2021 7:26 PM EDT [facility] Blood Venous blood specimen / Unknown Venipuncture / Unknown 02/26/2021 6:39 PM EDT 02/26/2021 6:42 PM EDT Isaac Reyna MD LAB BLOOD ORDERABLES Final Re sult Performing Organization Address [facility] Co de Phone Number [facility] [address] [place] [address] * ECG Adult (02/26/2021 4:42 PM EDT) EKG DIAGNOSIS CLASS Abnormal MUSE ECG Ventricular Rate 107 BPM MUSE ECG Atrial Rate 107 BPM MUSE ECG SD Interval 154 ms MUSE ECG QRSD Interval 74 ms MUSE ECG QT Interval 378 ms MUSE ECG QTC Interval 504 ms MUSE ECG P [place] 59 degrees MUSE ECG R [place] 56 degrees MUSE ECG T Wave [place] 48 degrees MUSE ECG Diagnosis Sinus tachycardia MUSE ECG Diagnosis Possible MUSE ECG Diagnosis Left atrial enlargement MUSE ECG Diagnosis Nonspecific ST abnormality MUSE ECG Diagnosis Abnormal ECG MUSE ECG Diagnosis Confirmed by Micah Oewns ([id number]) on 02/27/2021 4:44:04 PM MUSE ECG 02/26/2021 4:42 PM EDT 02/27/2021 4:44 PM EDT Isaac Reyna MD ECG ORDERABLES Final Result Performing Organization Address [facility] Co de Phone Number MUSE ECG * , urine (02/26/2021 2:37 PM EDT) Urine Negative Negative 3:56 PM EDT [facility] Comment:False negative resul ts have been reported in some women after 7 weeks of gestation. Plasma hCG testing is recommended if clinically indicated. Urine Spec Grav 1.023 <=1.005 to >=1.030 02/26/2021 3:56 PM EDT [facility] Urine Urine specimen obtained by clean catch procedure / Unknown Non-blood Collection / Unknown 02/26/2021 2:37 PM EDT 02/26/2021 2:45 PM EDT Cinthya Velez MD LAB URINE ORDERABLES Final R esult [facility] [address] [place] [address] * Drug abuse screen (02/26/2021 2:37 PM EDT) Amphetamine Screen Urine Negative Negative 02/26/2021 4:31 PM EDT [facility] Benzodiazepines Screen Urine Negative Negative 02/26/2021 4:31 PM EDT [facility] Cannabinoid Screen Urine Negative Negative 02/26/2021 4:31 PM EDT [facility] Cocaine Screen Urine Negative Negative 02/26/2021 4:31 PM EDT [facility] Barbiturate Screen Urine Negative Negative 02/26/2021 4:31 PM EDT [facility] Opiate Screen Urine Negative Negative 02/26 4:31 PM EDT [facility] Methadone Screen Urine Negative Negative 02/26/2021 4:31 PM EDT [facility] Buprenorphine Screen Urine Negative Negative 02/26/2021 4:31 PM EDT [facility] Fentanyl Screen Urine Negative Negative 02/26/2021 4:31 PM EDT [facility] Oxycodone Screen Urine Negative Negative 02/26/2021 4:31 PM EDT [facility] Urine Urine specimen obtained by clean catch procedure / Unknown Non-blood Collection / Unknown 02/26/2021 2:37 PM EDT 02/26/2021 2:45 PM EDT Cinthya Velez MD LAB URINE ORDERABLES Final R esult Performing Organization Address City/[facility]/ZIP Co de Phone Number [facility] [address] [place] [address] * ECG Adult (02/26/2021 1:22 PM EDT) Pathologist [facility] [place] EKG DIAGNOSIS CLASS Abnormal MUSE ECG Ventricular Rate 114 BPM MUSE ECG Atrial Rate 114 BPM MUSE ECG SD Interval 130 ms MUSE ECG QRSD Interval 80 ms MUSE ECG QT Interval 360 ms MUSE ECG QTC Interval 496 ms MUSE ECG P [place] 61 degrees MUSE ECG R [place] 61 degrees MUSE ECG T Wave [place] 50 degrees MUSE ECG Diagnosis Sinus tachycardia MUSE ECG Diagnosis Possible MUSE ECG Diagnosis Left atrial enlargement MUSE ECG Diagnosis Nonspecific ST and T wave abnormality MUSE ECG Diagnosis Abnormal ECG MUSE ECG Diagnosis Confirmed by Micah Owens ([id number]) on 02/27/2021 4:08:26 PM MUSE ECG 02/26/2021 1:22 PM EDT 02/27/2021 4:08 PM EDT us Cinthya Velez MD ECG ORDERABLES Final Result Performing Organization Address City/[facility] Co de Phone Number MUSE ECG * Ethyl Alcohol, Plasma (02/26/2021 1:19 PM EDT) [facility] Ethanol Plasma <10 <10 mg/dL 02/26/2021 2:03 PM EDT [facility] Blood Venous blood specimen / Unknown Venipuncture / Unknown 02/26/2021 1:19 PM EDT 02/26/2021 1:27 PM EDT Narrative [facility] - 02/26/2021 2:03 PM EDT Enzymatic Assay: Performed on Tr Fred. Cinthya Velez MD LAB BLOOD ORDERABLES Final R esult [facility] [address] [place] [address] * PT-INR (02/26/2021 1:19 PM EDT) [facility] Prothrombin Time 14.2 12.2 - 14.2 sec 02/26/2021 1:52 PM EDT [facility] INR 1.1 0.9 - 1.1 02/26/2021 1:52 PM EDT [facility] Blood Venous blood specimen / Unknown Venipuncture / Unknown 02/26/2021 1:19 PM EDT 02/26/2021 1:27 PM EDT Narrative [facility] - 02/26/2021 1:52 PM EDT OPTIMAL INR RANGES FOR PATIENT ON ORAL ANTICOAGULANT THERAPY Prevention of venous thromboembolism ?INR 2.0 to 3.0 In patients with heart disease: Atrial fibrillation ?INR 2.0 to 3.0 Valvular heart disease ? INR 2.0 to 3.0 Tissue heart valves ?INR 2.0 to 3.0 Mechanical prosthetic valves ? INR 2.5 to 3.5 Prevention of recurrent OH ? INR 2.5 to 3.5 us Cinthya Velez MD LAB BLOOD ORDERABLES Final R esult [facility] [address] [place] [address] * (ABNORMAL) CMP (02/26/2021 1:19 PM EDT) Glucose, Plasma 146(H) 74 - 99 mg/dL 02/26/2021 2:03 PM EDT [facility] BUN, Plasma 16 7 - 21 mg/dL 02/26/2021 2:03 PM EDT [facility] Creatinine, Plasma 0.92 0.60 - 1.10 mg/dL 02/26/2021 2:03 PM EDT [facility] BUN/Creatinine Ratio 17 02/26/2021 2:03 PM EDT [facility] Sodium, Plasma 138 136 - 145 mmol/L 02/26/2021 2:03 PM EDT [facility] Potassium, Plasma 3.5(L) 3.7 - 4.8 mmol/L 02/26/2021 2:03 PM EDT [facility] Chloride, Plasma 98 97 - 107 mmol/L 02/26/2021 2:03 PM EDT [facility] CO2, Plasma 23 22 - 29 mmol/L 02/26/2021 2:03 PM EDT [facility] Anion Gap 17(H) 6 - 16 mmol/L 02/26/2021 2:03 PM EDT [facility] Total Calcium, Plasma 8.8(L) 8.9 - 10.2 mg/dL 02/26/2021 2:03 PM EDT [facility] Total Protein 7.9 6.3 - 7.9 g/dL 02/26/2021 2:03 PM EDT [facility] Albumin, Plasma 4.1 3.5 - 5.2 g/dL 02/26/2021 2:03 PM EDT [facility] AST, Plasma 103(H) 11 - 32 U/L 02/26/2021 2:03 PM EDT [facility] ALT, Plasma 40(H) 8 - 33 U/L 02/26/2021 2:03 PM EDT [facility] Alkaline Phosphatase, Plasma 168(H) 35 - 104 U/L 02/26/2021 2:03 PM EDT [facility] Total Bilirubin, Plasma 1.2(H) 0.2 - 1.1 mg/dL 02/26/2021 2:03 PM EDT [facility] eGFR >60 >60 mL/min/1.7 3m*2 02/26/2021 2:03 PM EDT [facility] Comment:eGFR = estimated GFR ; eGFR units = mL/min/1.73 sq meters Chronic Kidney Disease is considered if eGFR <60 mL/min/1.73 sq meters Kidney failure is considered if eGFR is <15 mL/min/1.73 sq meters. eGFR assumes steady state plasma creatinine concentration; not applicable if renal function is rapidly changing or patient is on dialysis. eGFR, if AFR/AM >60 >60 mL/min/1.7 3m*2 02/26/2021 2:03 PM EDT [facility] Comment:eGFR = estimated GFR ; eGFR units = mL/min/1.73 sq meters Chronic Kidney Disease is considered if eGFR <60 mL/min/1.73 sq meters Kidney failure is considered if eGFR is <15 mL/min/1.73 sq meters. eGFR assumes steady state plasma creatinine concentration; not applicable if renal function is rapidly changing or patient is on dialysis. Blood Venous blood specimen / Unknown Venipuncture / Unknown 02/26/2021 1:19 PM EDT 02/26/2021 1:27 PM EDT Cinthya Velez MD LAB BLOOD ORDERABLES Final R esult Performing Organization Address City/[facility]/ZIP Co de Phone Number [facility] [address] [place] [address] * (ABNORMAL) Lipase (02/26/2021 1:19 PM EDT) Pathologist [facility] [place] Lipase, Plasma 17(L) 19 - 63 U/L 02/26/2021 2:03 PM EDT [facility] Blood Venous blood specimen / Unknown Venipuncture / Unknown 02/26/2021 1:19 PM EDT 02/26/2021 1:27 PM EDT Cinthya Velez MD LAB BLOOD ORDERABLES Final R esult Performing Organization Address City/[facility]/[place] de Phone Number [facility] [address] [place] [address] * (ABNORMAL) CBC w/diff (02/26/2021 1:19 PM EDT) WBC Count 14.34(H) 3.70 - 10.30 10*3/uL LAB HEMATOLOGY METHOD 02/26/2021 1:33 PM EDT [facility] RBC Count 4.33 3.90 - 5.20 10*6/uL LAB HEMATOLOGY METHOD 02/26/2021 1:33 PM EDT [facility] HGB 12.2 11.2 - 15.7 g/dL LAB HEMATOLOGY METHOD 02/26/2021 1:33 PM EDT [facility] HCT 37.6 34.0 - 45.0 % LAB HEMATOLOGY METHOD 02/26/2021 1:33 PM EDT [facility] Platelet Count 330 155 - 369 10*3/uL LAB HEMATOLOGY METHOD 02/26/2021 1:33 PM EDT [facility] MCV 87 79 - 98 fL LAB HEMATOLOGY METHOD 02/26/2021 1:33 PM EDT [facility] MCH 28.2 26.0 - 32.0 pg LAB HEMATOLOGY METHOD 02/26/2021 1:33 PM EDT [facility] MCHC 32.4 30.7 - 35.5 g/dL LAB HEMATOLOGY METHOD 02/26/2021 1:33 PM EDT [facility] RDW 19.9(H) 11.5 - 14.5 % LAB HEMATOLOGY METHOD 02/26/2021 1:33 PM EDT [facility] MPV 9.8 8.8 - 12.5 fL LAB HEMATOLOGY METHOD 02/26/2021 1:33 PM EDT [facility] nRBC 0.0 <=0.0 per 100 WBCs LAB HEMATOLOGY METHOD 02/26/2021 1:33 PM EDT [facility] Differential Type Automated LAB HEMATOLOGY METHOD 02/26/2021 1:33 PM EDT [facility] Neutrophils % 88.0 % LAB HEMATOLOGY METHOD 02/26/2021 1:33 PM EDT [facility] Lymphocytes % 6.0 % LAB HEMATOLOGY METHOD 02/26/2021 1:33 PM EDT [facility] Monocytes % 5.0 % LAB HEMATOLOGY METHOD 02/26/2021 1:33 PM EDT [facility] Eosinophils % 0.0 % LAB HEMATOLOGY METHOD 02/26/2021 1:33 PM EDT [facility] Basophils % 1.0 % LAB HEMATOLOGY METHOD 02/26/2021 1:33 PM EDT [facility] Immature Granulocytes % 0.0 % LAB HEMATOLOGY METHOD 02/26/2021 1:33 PM EDT [facility] Neutrophils Absolute 12.64(H) 1.60 - 6.10 10*3/uL LAB HEMATOLOGY METHOD 02/26/2021 1:33 PM EDT [facility] Lymphocytes Absolute 0.83(L) 1.20 - 3.90 10*3/uL LAB HEMATOLOGY METHOD 02/26/2021 1:33 PM EDT [facility] Monocytes Absolute 0.74 0.30 - 0.90 10*3/uL LAB HEMATOLOGY METHOD 02/26/2021 1:33 PM EDT [facility] Eosinophils Absolute 0.00 0.00 - 0.50 10*3/uL LAB HEMATOLOGY METHOD 02/26/2021 1:33 PM EDT [facility] Basophils Absolute 0.08 0.00 - 0.10 10*3/uL LAB HEMATOLOGY METHOD 02/26/2021 1:33 PM EDT [facility] Immature Granulocytes Absolute 0.05 0 - 0.06 10*3/uL LAB HEMATOLOGY METHOD 02/26/2021 1:33 PM EDT [facility] Blood Venous blood specimen / Unknown Venipuncture / Unknown 02/26/2021 1:19 PM EDT 02/26/2021 1:27 PM EDT Narrative [facility] - 02/26/2021 1:33 PM EDT Therapeutic decision making should be based on absolute values, rather than percentages. us Cinthya Velez MD LAB BLOOD ORDERABLES Final R esult [facility] [address] [place] [id number] documented in this encounter Visit Diagnoses Diagnosis Alcohol withdrawal (CMS/HCC)- Primary Alcohol withdrawal Alcohol withdrawal syndrome without complication (CMS/HCC) Non-intractable vomiting with nausea, unspecified vomiting type Acute alcoholic gastritis without hemorrhage Tachycardia Unspecified tachycardia Elevated LFTs Other abnormal blood chemistry Acute vomiting Alcohol use disorder, moderate, dependence (CMS/HCC) documented in this encounter Admitting Diagnoses Diagnosis Acute vomiting documented in this encounter Administered Medications Inactive Administered Medications - up to 3 most recent administrations Medication Order MAR Action Action Date Dose Rate Site acetaminophen (Tylenol) tablet 650 mg 650 mg, Oral, Every 8 hours PRN, Starting on Fri02/26/21 at 1527, Until Fri02/28/21 at 1616, Routine, mild pain Given 02/28/2021 9:18 AM EDT 650 mg Left Upper Arm (Back) Given 02/27/2021 8:04 PM EDT 650 mg Given 02/27/2021 3:50 PM EDT 650 mg dextrose 5 % 1,000 mL with thiamine 100 mg, folic acid 1 mg, magnesium sulfate 2 g infusion 1,000 mL/hr, Intravenous, Once, 1 dose, On Fri02/26/21 at 1325, STAT New Bag 02/26/2021 3:32 PM EDT 1,000 mL/hr 1000 mL/hr diazePAM (Valium) injection 10 mg 10 mg, Intravenous, Every 4 hours PRN, Starting on Fri02/26/21 at 1550, Until Fri02/28/21 at 1616, Routine, CIWA 8-14 AND unable to take PO diazePAM (Valium) injection 15 mg 15 mg, Intravenous, Every 4 hours PRN, Starting on Fri02/26/21 at 1550, Until Fri02/28/21 at 1616, Routine, CIWA 15-24 AND unable to take PO diazePAM (Valium) injection 20 mg 20 mg, Intravenous, Every 4 hours PRN, Starting on Fri02/26/21 at 1550, Until Fri02/28/21 at 1616, Routine, CIWA > 25 diazePAM (Valium) tablet 10 mg 10 mg, Oral, Every 4 hours PRN, Starting on Fri02/26/21 at 1550, Until Fri02/28/21 at 1616, Routine, CIWA 8-14 Given 02/27/2021 8:26 AM EDT 10 mg Given 02/26/2021 11:07 PM EDT 10 mg Given 02/26/2021 7:22 PM EDT 10 mg diazePAM (Valium) tablet 15 mg 15 mg, Oral, Every 4 hours PRN, Starting on Fri02/26/21 at 1550, Until Fri02/28/21 at 1616, Routine, CIWA 15-24 diazePAM (Valium) tablet 5 mg 5 mg, Oral, Once, 1 dose, On Fri02/26/21 at 1325, STAT Given 02/26/2021 1:44 PM EDT 5 mg folic acid (Folvite) tablet 1 mg 1 mg, Oral, Daily, First dose on Fri02/26/21 at 1535, Until Discontinued, Routine Given 02/28/2021 9:17 AM EDT 1 mg Given 02/27/2021 8:29 AM EDT 1 mg Given 02/26/2021 4:27 PM EDT 1 mg melatonin tablet 6 mg 6 mg, Oral, Nightly, First dose on Fri02/27/21 at 2100, Until Discontinued, Routine Given 02/27/2021 8:04 PM EDT 6 mg naltrexone (Vivitrol) tablet 50 mg 50 mg, Oral, Daily, First dose on Fri02/27/21 at 1530, Until Discontinued, Routine Given 02/28/2021 9:17 AM EDT 50 mg Given 02/27/2021 3:49 PM EDT 50 mg nicotine (Nicoderm CQ) 14 MG/24HR patch 1 patch 1 patch, Transdermal, Daily, 14 doses, First dose on Fri04/09/21 at 0900, Last dose on Fri04/22/21 at 0900, Routine nicotine (Nicoderm CQ) 21 MG/24HR patch 1 patch 1 patch, Transdermal, Daily, 42 doses, First dose on Fri02/26/21 at 1535, Last dose on Fri04/08/21 at 0900, Routine Medication Applied 02/28/2021 9:00 AM EDT 1 patch Left Arm Medication Applied 02/27/2021 9:00 AM EDT 1 patch Right Arm Medication Applied 02/26/2021 3:35 PM EDT 1 patch Right Arm nicotine (Nicoderm CQ) 7 MG/24HR patch 1 patch 1 patch, Transdermal, Daily, 14 doses, First dose on Fri04/23/21 at 0900, Last dose on Fri05/06/21 at 0900, Routine ondansetron (Zofran) injection 4 mg 4 mg, Intravenous, Once, 1 dose, On Fri02/26/21 at 1315, STAT Given 02/26/2021 1:43 PM EDT 4 mg ondansetron ODT (Zofran-ODT) disintegrating tablet 4 mg 4 mg, Oral, Every 6 hours PRN, Starting on Fri02/26/21 at 1528, Until Fri02/28/21 at 1616, Routine, nausea, vomiting pantoprazole (ProtoNix) EC tablet 40 mg 40 mg, Oral, Daily before breakfast, First dose on Fri02/28/21 at 0730, Until Discontinued, Routine Given 02/28/2021 9:17 AM EDT 40 mg pantoprazole (ProtoNix) injection 40 mg 40 mg, Intravenous, 2 times daily, First dose on Fri02/26/21 at 2100, Until Discontinued, Routine Given 02/27/2021 8:25 AM EDT 40 mg Given 02/26/2021 9:55 PM EDT 40 mg pantoprazole (ProtoNix) injection 80 mg 80 mg, Intravenous, Once, 1 dose, On Fri02/26/21 at 1325, STAT Given 02/26/2021 1:44 PM EDT 80 mg PARoxetine (Paxil) tablet 40 mg 40 mg, Oral, Daily, First dose (after last modification) on Fri02/27/21 at 1330, Until Discontinued, Routine Given 02/28/2021 9:16 AM EDT 40 mg Given 02/27/2021 8:19 PM EDT 40 mg potassium chloride CR (Klor-Con) ER tablet 40 mEq 40 mEq, Oral, Once, 1 dose, On Fri02/28/21 at 0730, Routine Given 02/28/2021 9:16 AM EDT 40 mEq QUEtiapine (SEROquel) tablet 50 mg 50 mg, Oral, Nightly, First dose on Fri02/27/21 at 2100, Until Discontinued, Routine Given 02/27/2021 8:04 PM EDT 50 mg senna (Senokot) tablet 17.2 mg 17.2 mg (2 tablet), Oral, Nightly, First dose on Fri02/26/21 at 2100, Until Discontinued, Routine Given 02/26/2021 9:56 PM EDT 17.2 mg sodium chloride 0.9 % bolus 1,000 mL 1,000 mL, Intravenous, Once, 1 dose, On Fri02/26/21 at 1315, Administer over 30 Minutes, Routine New Bag 02/26/2021 1:44 PM EDT 1,000 mL 2000 mL/hr sodium chloride 0.9 % flush 10 mL 10 mL, Intravenous, Every 8 hours PRN, Starting on Fri02/26/21 at 1525, Until Fri02/28/21 at 1616, Routine, line care thiamine (Vitamin B-1) tablet 100 mg 100 mg, Oral, Daily, First dose on Fri03/01/21 at 0900, Until Discontinued, Routine thiamine (Vitamin B-1) tablet 100 mg 100 mg, Oral, Daily, 3 doses, First dose on Fri02/26/21 at 1535, Last dose on Fri02/28/21 at 0900, STAT Given 02/28/2021 9:17 AM EDT 100 mg Given 02/27/2021 8:25 AM EDT 100 mg Given 02/26/2021 4:27 PM EDT 100 mg documented in this encounter Active and Recently Administered Medications Times are shown in EDT. Scheduled Medication Order 02/26/2021 02/27/2021 02/28/2021 dextrose 5 % 1,000 mL with thiamine 100 mg, folic acid 1 mg, magnesium sulfate 2 g infusion (COMPLETED) 1,000 mL/hr, Intravenous, Once, 1 dose, On Fri02/26/21 at 1325, STAT 1532 (New Bag - Provider: Rula Rubio RN)1630 (Stopped - Provider: Rula Rubio RN) diazePAM (Valium) tablet 5 mg (COMPLETED) 5 mg, Oral, Once, 1 dose, On Fri02/26/21 at 1325, STAT 1344 (Given - Provider: Rula Rubio RN) folic acid (Folvite) tablet 1 mg 1 mg, Oral, Daily, First dose on Fri02/26/21 at 1535, Until Discontinued, Routine 1627 (Given - Provider: Rula Rubio RN) 0829 (Given - Provider: Adalgisa Simental RN) 0917 (Given - Provider: Adalgisa Simental RN) melatonin tablet 6 mg 6 mg, Oral, Nightly, First dose on Fri02/27/21 at 2100, Until Discontinued, Routine 2004 (Given - Provider: Rula Spangler LPN) naltrexone (Vivitrol) tablet 50 mg 50 mg, Oral, Daily, First dose on Fri02/27/21 at 1530, Until Discontinued, Routine 1549 (Given - Provider: Adalgisa Simental RN) 0917 (Given - Provider: Adalgisa Simental RN) nicotine (Nicoderm CQ) 14 MG/24HR patch 1 patch(Linked Group 1) 1 patch, Transdermal, Daily, 14 doses, First dose on Fri04/09/21 at 0900, Last dose on Fri04/22/21 at 0900, Routine nicotine (Nicoderm CQ) 21 MG/24HR patch 1 patch(Linked Group 1) 1 patch, Transdermal, Daily, 42 doses, First dose on Fri02/26/21 at 1535, Last dose on 04/08/21 at 0900, Routine 1535 (Medication Applied - Provider: Rula Rubio RN) 0859 (Medication Removed - Provider: Adalgisa Simental RN)0900 (Medication Applied - Provider: Adalgisa Simental RN) 0859 (Medication Removed - Provider: Adalgisa Simental RN)0900 (Medication Applied - Provider: Adalgisa Simental RN)1402 (Due: Medication Removed - Provider: Automatic Discharge Provider - Comment: Time automatically adjusted from order being discontinued)1731 (Due: Medication Removed - Provider: Adalgisa Simental RN - Comment: Pt. old patch got wet in shower and will no longer stick) nicotine (Nicoderm CQ) 7 MG/24HR patch 1 patch(Linked Group 1) 1 patch, Transdermal, Daily, 14 doses, First dose on Fri04/23/21 at 0900, Last dose on Fri05/06/21 at 0900, Routine ondansetron (Zofran) injection 4 mg (COMPLETED) 4 mg, Intravenous, Once, 1 dose, On Fri02/26/21 at 1315, STAT 1343 (Given - Provider: Rula Rubio, JOSE) pantoprazole (ProtoNix) EC tablet 40 mg 40 mg, Oral, Daily before breakfast, First dose on Fri02/28/21 at 0730, Until Discontinued, Routine 916 (Given - Provid er: Adalgisa Simental RN) pantoprazole (ProtoNix) injection 40 mg (CANCELED) 40 mg, Intravenous, 2 times daily, First dose on Fri02/26/21 at 2100, Until Discontinued, Routine 2154 (Given - Provider: Daisy Gomez RN) 08 (Given - Provider: Adalgisa Simental RN) pantoprazole (ProtoNix) injection 80 mg (COMPLETED) 80 mg, Intravenous, Once, 1 dose, On Fri02/26/21 at 1325, STAT 1344 (Given - Provider: Rula Rubio, JOSE) PARoxetine (Paxil) tablet 40 mg 40 mg, Oral, Daily, First dose (after last modification) on Fri02/27/21 at 1330, Until Discontinued, Routine 2018 (Given - Provider: Rula Spangler LPN - Comment: medication due at 2100 according to MAR) 0916 (Given - Provider: Adalgisa Simental RN) potassium chloride CR (Klor-Con) ER tablet 40 mEq (COMPLETED) 40 mEq, Oral, Once, 1 dose, On Fri02/28/21 at 0730, Routine 0916 (Given - Provid er: Adalgisa Simental RN) QUEtiapine (SEROquel) tablet 50 mg 50 mg, Oral, Nightly, First dose on Fri02/27/21 at 2100, Until Discontinued, Routine 2003 (Given - Provider: Rula Spangler LPN) senna (Senokot) tablet 17.2 mg 17.2 mg (2 tablet), Oral, Nightly, First dose on Fri02/26/21 at 2100, Until Discontinued, Routine 215 (Given - Provider: Daisy Gomez RN) 2100 (Not Given - Provider: Rula Spangler LPN - Reason: Patient/family refused) sodium chloride 0.9 % bolus 1,000 mL (COMPLETED) 1,000 mL, Intravenous, Once, 1 dose, On Fri02/26/21 at 1315, Administer over 30 Minutes, Routine 1344 (New Bag - Provider: Rula Rubio, JOSE)1414 (Stopped - Provider: Rula Rubio RN) thiamine (Vitamin B-1) tablet 100 mg 100 mg, Oral, Daily, First dose on Hansa 03/01/21 at 0900, Until Discontinued, Routine thiamine (Vitamin B-1) tablet 100 mg (COMPLETED) 100 mg, Oral, Daily, 3 doses, First dose on Fri02/26/21 at 1535, Last dose on Fri02/28/21 at 0900, STAT 1627 (Given - Provider: Rula Rubio RN) 0825 (Given - Provider: Adalgisa Simental RN) 0917 (Given - Provider: Adalgisa Simental RN) PRN Medication Order 02/26/2021 02/27/2021 02/28/2021 acetaminophen (Tylenol) tablet 650 mg 650 mg, Oral, Every 8 hours PRN, Starting on Fri02/26/21 at 1527, Until Fri02/28/21 at 1616, Routine, mild pain 2154 (Given - Provider: Daisy Gomez, JOSE) 08[facility] Provider: Adalgisa Simental RN)1550 (Given - Provider: Adalgisa Simental RN)2003 (Given - Provider: Rula Spangler LPN) 0918 (Given - Provider: Adalgisa Simental RN) diazePAM (Valium) injection 10 mg(Linked Group 2) 10 mg, Intravenous, Every 4 hours PRN, Starting on Fri02/26/21 at 1550, Until Fri02/28/21 at 1616, Routine, CIWA 8-14 AND unable to take PO 1922 (See Alternative - Provider: Conner Peña RN)2306 (See Alternative - Provider: Daisy Gomez RN) 08 (See Alternative - Provider: Adalgisa Simental RN) diazePAM (Valium) injection 15 mg(Linked Group 2) 15 mg, Intravenous, Every 4 hours PRN, Starting on Fri02/26/21 at 1550, Until Fri02/28/21 at 1616, Routine, CIWA 15-24 AND unable to take PO 1922 (See Alternative - Provider: Conner Peña RN)2306 (See Alternative - Provider: Daisy Gomez RN) 08 (See Alternative - Provider: Adalgisa Simental RN) diazePAM (Valium) injection 20 mg(Linked Group 2) 20 mg, Intravenous, Every 4 hours PRN, Starting on Fri02/26/21 at 1550, Until Fri02/28/21 at 1616, Routine, CIWA > 25 1922 (See Alternative - Provider: Conner Peña RN)2306 (See Alternative - Provider: Daisy Gomez RN) 08 (See Alternative - Provider: Adalgisa Simental RN) diazePAM (Valium) tablet 10 mg(Linked Group 2) 10 mg, Oral, Every 4 hours PRN, Starting on Fri02/26/21 at 1550, Until Fri02/28/21 at 1616, Routine, CIWA 8-14 1922 (Given - Provider: Conner Peña RN)2306 (Given - Provider: Daisy Gomez RN) 08 (Given - Provider: Adalgisa Simental RN) diazePAM (Valium) tablet 15 mg(Linked Group 2) 15 mg, Oral, Every 4 hours PRN, Starting on Fri02/26/21 at 1550, Until Fri02/28/21 at 1616, Routine, CIWA 15-24 1922 (See Alternative - Provider: Conner Peña RN)2306 (See Alternative - Provider: Daisy Gomez RN) 08 (See Alternative - Provider: Adalgisa Simental RN) ondansetron ODT (Zofran-ODT) disintegrating tablet 4 mg 4 mg, Oral, Every 6 hours PRN, Starting on Fri02/26/21 at 1528, Until Fri02/28/21 at 1616, Routine, nausea, vomiting 0816 ([facility]: Adalgisa Simental RN) sodium chloride 0.9 % flush 10 mL(Linked Group 3) 10 mL, Intravenous, Every 8 hours PRN, Starting on Fri02/26/21 at 1525, Until Fri02/28/21 at 1616, Routine, line care Linked Groups Order Group 1: nicotine (Nicoderm CQ) 21 MG/24HR patch 1 patchJump to med 1 patch, Transdermal, Daily, 42 doses, First dose on Fri02/26/21 at 1535, Last dose on Fri04/08/21 at 0900, Routine Followed by nicotine (Nicoderm CQ) 14 MG/24HR patch 1 patchJump to med 1 patch, Transdermal, Daily, 14 doses, First dose on Fri04/09/21 at 0900, Last dose on Fri04/22/21 at 0900, Routine Followed by nicotine (Nicoderm CQ) 7 MG/24HR patch 1 patchJump to med 1 patch, Transdermal, Daily, 14 doses, First dose on Fri04/23/21 at 0900, Last dose on Fri05/06/21 at 0900, Routine Group 2: diazePAM (Valium) tablet 10 mgJump to med 10 mg, Oral, Every 4 hours PRN, Starting on Fri02/26/21 at 1550, Until Fri02/28/21 at 1616, Routine, CIWA 8-14 Or diazePAM (Valium) injection 10 mgJump to med 10 mg, Intravenous, Every 4 hours PRN, Starting on Fri02/26/21 at 1550, Until Fri02/28/21 at 1616, Routine, CIWA 8-14 AND unable to take PO Or diazePAM (Valium) injection 10 mg (CANCELED) 10 mg, Intravenous, Every 4 hours PRN, Starting on Fri02/26/21 at 1550, Until Fri02/26/21 at 1549, Routine, CIWA 8-14 AND unable to take PO Or diazePAM (Valium) tablet 15 mgJump to med 15 mg, Oral, Every 4 hours PRN, Starting on Fri02/26/21 at 1550, Until Fri02/28/21 at 1616, Routine, CIWA 15-24 Or diazePAM (Valium) injection 15 mgJump to med 15 mg, Intravenous, Every 4 hours PRN, Starting on Fri02/26/21 at 1550, Until Fri02/28/21 at 1616, Routine, CIWA 15-24 AND unable to take PO Or diazePAM (Valium) injection 20 mgJump to med 20 mg, Intravenous, Every 4 hours PRN, Starting on Fri02/26/21 at 1550, Until Fri02/28/21 at 1616, Routine, CIWA > 25 Group 3: Insert peripheral IV (COMPLETED) Once, On Fri02/26/21 at 1526, For 1 occurrence And Saline lock IV (COMPLETED) Once, On Fri02/26/21 at 1526, For 1 occurrence And sodium chloride 0.9 % flush 10 mLJump to med 10 mL, Intravenous, Every 8 hours PRN, Starting on Fri02/26/21 at 1525, Until Fri02/28/21 at 1616, Routine, line care documented in this encounter Care Teams Electronic Security Technician Relationship Specialty Start Date End Date Tapestry, General External ProviderMD [address] [place] [id number] PCP - General Audiologist 02/26/21 06/11/22 documented as of this encounter
--- OUTSIDE RECORDS SUMMARY | 2024-08-04 20:06 | XMS_ITS | Encounter Summary ---
Author Organization Healthcare Address [address] [place] [address] Care Team Providers Care Tire Service Supervisor Name Role Phone Tapestry, General External Provider Primary C are Provider Shantanu Landeros MD Primary Care Provider [phone] Encounter Details Date Type Department Care Team ([facility] st Contact Info) Description 04/18/2019 Orders Only External Location [address] [place] [address] Provider, External Social History Tobacco Use Types Packs/Day Years Used Date Smoking Tobacco: Never Assessed Comments Unknown Sex and Gender Information Value Date Recorded Sex Assigned at Not on file Legal Sex Female 6:02 PM EDT Gender Identity Not on file Sexual Orientation Not on file documented as of this encounter Plan of Treatment Not on file documented as of this encounter Procedures Procedure Name Priority Date/Time Associated Diagnosis Comments XR ABDOMEN OUTSIDE IMAGES 04/18/2019 6:07 PM EDT documented in this encounter Results * XR ABDOMEN OUTSIDE IMAGES (04/18/2019 6:07 PM EDT) Anatomical Region Laterality Modality Radiographic Kala ging 04/18/2019 6:07 PM EDT us External Provider IMG XR PROCEDURES Final Result documented in this encounter Visit Diagnoses Not on filedocumented in this encounter Additional Health Concerns Infection Onset Date Last Indicated Resolved Time COVID 19 (Confirmed) Comment:Patient's Isolation precautions are discontinued as of: 10/09/2021 Patient is considered recovered. X2 negative PCR tests >24hrs apart. IPAC has contacted patient's physician/treatment team, patient is clear to have isolation precautions discontinued. Physician notified Name: Dr. Healy Nurse notified Name: JORDANA notified : Hany PereyraJanel 09/23/2021 09/23/2021 10/09/2021 7:[address] C. difficile Rule-Out 09/27/2021 09/27/20212021 11:07 AM EST documented as of this encounter Care Teams Tire Service Supervisor Relationship Specialty Start Date End Date Tapestry, General External ProviderMD [address] [place] [id number] PCP - General Creative Technologist 02/26/21 06/11/22 Shantanu Landeros MD [address] [place] [address] PCP - General 06/12/22 documented as of this encounter
--- OUTSIDE RECORDS SUMMARY | 2024-08-04 20:06 | XMS_ITS | Encounter Summary ---
Author Organization Healthcare Address [facility] [place] [place] [address] Care Team Providers Care Mobile Sales Consultant Name Role Phone Tapestry, General External Provider Primary C are Provider Encounter Details Date Type Department Care Team (Latest Contact Info) Description 02/26/2021 Travel Social History Tobacco Use Types Packs/Day Years Used Date Smoking Tobacco: Never Assessed Social Connection and Isolation Panel [NHANES] A nswer Date Recorded Frequency of Communication with Friends and Fami ly Not on file 02/27/2021 Frequency of Social Gatherings with Friends and Family Not on file 02/27/2021 Attends Cheondoism Services Not on file 02/27 Active Member [...] Recorded Patient Health Questionnaire-2 Score 2 02/27/2021 [facility] [place] [facility] - Occupational Stress [...] on file Sexual Orientation Not on file COVID-19 Exposure Response Date Recorded In the last month, have you been in contact with someone who was confirmed or suspected to have Coronavirus / COVID-19? No / Unsure 02/26/2021 3:01 PM EDT documented as of this encounter Plan of Treatment Not on file documented as of this encounter Visit Diagnoses Not on filedocumented in this encounter Care Teams Mobile Sales Consultant Relationship Specialty Start Date End Date Tapestry, General External Provider, [address] [place] [id number] PCP - General Warehouse Supervisor 02/26/21 06/11/22 documented as of this encounter
--- OUTSIDE RECORDS SUMMARY | 2024-08-04 20:06 | XMS_ITS | Encounter Summary ---
Author Organization Healthcare Address [address] [id number] Care Team Providers Care Needle Leader Name Role Phone Tapestry, General External Provider Primary C are Provider Reason for Visit * Auth/Cert Specialty Diagnoses / Procedures Referred By Contac t Referred To Contact Diagnoses Sepsis (CMS/HCC) PERITONITIS Loren Dietrich MD [id number] [place] [address] Phone: tel: fax: PAV A Inpatient [address] [place] [address] Phone: tel: Referral ID Status Reason Start Date Expiration Date Visits Re quested Visits Authorized [id number] 1 1 Encounter Details Date Type Department Care Team (Late st Contact Info) Description 09/23/2021 4:37 PM EST - 10/16/2021 3:04 PM [facility] Hospital Encounter PAV S Inpatient [address] [place] [address] Loren Dietrich MD [address] [facility] [address] [place] [address] Edison Asencio MD [address] [facility] [address] [place] [address] Jim Calzada MD [address] [facility] [address] [place] [address] Justine Momin MD [address] [facility] [address] [place] [address] Hiral Infante MD [address] [place] [address] Kemar Healy MD [address] [place] [address]3 Mala Mark MD [address] [facility] [address] [place] [address] Pam Uriostegui MD [address] [place] [address]3 Jamia Eller MD [address] [place] [address] Ena Brennan MD [facility] [address] [place] [address] Ghassan Curry MD [address] [place] [address] Xavier Lee MD [address] [place] [address] Respiratory failure with hypoxia, unspecified chronicity (CMS/HCC) (Primary Dx); Encounter for other specified special examinations; Altered mental status, unspecified altered mental status type Discharge Disposition: [facility] Facility Social History Tobacco Use Types Packs/Day Years [...] and Family Not on file 02/27/2021 Attends Congregational Services Not on file 02/27 Active Member [...] 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 No / Unsure 10/02/2021 7:43 AM EST documented as of this encounter Last Filed Vital Signs Vital Sign Reading Time Taken Comments Blood Pressure 121/78 10/16/2021 11:31 AM EST Pulse 103 10/16/2021 11:31 AM EST Temperature 36.8 ??C (98.2 ??F) 10/16/2021 1 1:31 AM EST Respiratory Rate 16 10/14/2021 4:53 PM EST Oxygen Saturation 94% 10/16/2021 11: 31 AM EST Inhaled Oxygen Concentration - - Weight 80.2 kg (176 lb 12.9 oz) 10/09/2021 6:44 AM EST Height 162.6 cm (5' 4.02 ) 09/23/2021 5:00 PM ES T Body Mass Index 30.33 09/23/2021 5:00 PM EST documented in this encounter Medications at Time of Discharge PARoxetine (Paxil) 40 MG tablet Take 1 tablet (40 mg) by mouth 1 (one) time each day in the morning. 4 QUEtiapine (SEROquel) 50 MG tablet Take 1 tablet (50 mg) by mouth every night. 3 melatonin 3 MG tablet Take 2 tablets (6 mg total) by mouth every night. 60 tablet 10/16/2021 2 naloxone (Narcan) 4 mg/0.1 mL nasal spray Administer 1 spray (4 mg total) into affected nostril(s) if needed for opioid reversal. Call 911. Give 4 mg (1 spray) into one nostril. Repeat every 2-3 minutes as needed, alternating nostrils, until medical assistance arrives. 1 each 10/01/2021 3 lisinopril 10 MG tablet Take 1 tablet (10 mg total) by mouth 1 (one) time each day. 30 tablet 10/17/2021 4 naltrexone (ReVia) 50 MG tablet Take 1 tablet (50 mg) by mouth every night. 4 nicotine (Nicoderm CQ) 21 MG/24HR patch Place 1 patch on the skin 1 (one) time each day. 30 patch 10/17/2021 3 QUEtiapine (SEROquel) 100 MG tablet Take 1 tablet (100 mg) by mouth every night. 4 documented as of this encounter Miscellaneous Notes * Nursing Note - Josselin Lopez RN - 10/16/2021 2:40 PM EST The pt was taught discharge instructions at this time and will be transported to [facility] by their shuttle. * Progress Notes - Debra Ramos RN - 10/16/2021 1:23 PM EST Case Management Discharge Note Rosendo Roach 46 y.o. 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 Discharge Transportation: Transportation Anticipated: medical transport Has discharge transport been arranged?: Yes What day is the transport expected?: 10/16/21 Follow Up Transport: Yes. Family Additional Comments: JOSE HAYES was made aware by [facility] liaison, that Ms. Roach has been approved for transfer today the MED unit today. JOSE HAYES discussed this patient with her multidisciplinary team during huddle and per discussion she is medically ready for discharge today. JOSE HAYES visited Ms. Roach at the bedside and discussed the discharge plan. Ms. Roach verbalized that she is agreeable with this placement and would prefer to transport via [facility] shuttle, if possible. JOSE HAYES sent [facility] shuttle request and the patient has been setup for transport today at 1500. JOSE HAYES hasupdated the patients multidisciplinary team as well as her bedside nurse with the transport time. JOSE HAYES has provided the bedside nurse with the report number. JOSE HAYES will fax the discharge summary. MED unit Report number: [id number] . JOSE HAYES clarified with Michell that nursing is to clamp the patients KCI vac for transport to the facility and them provider at [facility] will address the plan on admission. No other CM needs were identified. Debra Ramos RN * Discharge Summary - Xavier Lee MD - 10/16/2021 1:10 PM EST Images from the original note were not included. Hospitalization Admit Date/Time: 09/23/2021 4:37 PM Admitting Attending: Ena Brennan Discharge Date:10/16/2021 Discharge Attending Physician: Xavier Lee Md PCP name and Address: [facility] External ProviderMD (Inactive) [address] [place], [place] [id number] Referring provider name and address: [place] Chief Concern, Brief History of Present Illness, and Hospital Course Rosendo Roach is a 46 y.o. female who was who was undergoing inpatient alcohol detox, but becameacutely ill and was admitted to [facility] on 09/10/2021 with ascending cholangitis, peritonitis, pneumoperitoneum, and a left tubo-ovarian abscess, for which she underwent ex- lap with drainage and washout. She remained intubated after surgery and imaging showed bilateral pneumonia - respiratory PCR was negative for flu and COVID-19. She failed an SBT and, despite, decreased sedation, would not follow commands. She was persistently febrile and repeat imaging demonstrated colon wall thickening, persistent pneumonia, pleural effusions and LLL collapse. She was transferred to theICU here on 09/23/2021, where she completed a course of broad spectrum antibiotics to cover both abdominal infection and pneumonia. She was also incidentally found to be COVID-19 positive on repeat testing, but never required treatment for this. She now has two negative COVID tests, so she is off isolation. For acute rehab placement. She has been accepted to the MED unit at [facility] today. Problems list: Recent sepsis??(now resolved)??due to ascending cholangitis, peritonitis, pneumoperitoneum, and a left tubo-ovarian abscess??with residual abdominal wound recently complicated by dehiscence and hematoma -History:??S/p exlap on 09/12??and??ICU care/pressors.??Ovarian abscess culture grew nicanor glabrata, e. Coli, and enterobacter.??S/p meropenem, cefepime, and metronidazole (s/p 10 days of antibiotics).??S/p micafungin (stopped 10/02) ??-General surgery??did washout and hematoma evacuation on 10/07.??They removed the maximilian in the middle of the wound. ??TBD when to remove??the rest of the??abdominal maximilian (will leave in place for now??since the central part of the wound was pulling apart).??No further bleeding on exam -Wound dehiscence: Now has wound vac in place. Change Friday, friday, friday.?? -Follow up with [facility] surgeon??on discharge. ?? Alcohol dependence (with history of DTs and withdrawal seizures) -TRACEY consult -patient declined??acamprosate or naltrexone??when discussed with TRACEY -She said that she was using alcohol to help her sleep, but that the Seroquel is working well for her now -On thiamine and folate ?? Hepatic steatosis (due to alcohol abuse):?? Encourage sobriety ?? Tobacco dependence: Smoking cessation counseling and NRT -Nicotine replacement prn ?? Hypoglycemia:?? -Low glucose levels possibly related to poor oral intake -Blood sugars reviewed and remain >70 without additional dextrose. Encourage PO intake.??Diet liberalized to improve intake. Nutrition supplements added -Nutrition consult to help with food preferences and nutrition optimization.?? - Asymptomatic when BG is low ?? CHRONIC: Hypertension: Monitor BPs, reintroduce medications as needed Depression and anxiety: Increased Seroquel and resumed Paxil on 10/02 Insomnia: She has a history of chronic use of Ambien (but trying to avoid benzodiazepines); Discussed with Psychiatry on 10/02, increased Seroquel to 100 mg qPM (and can consider increasing further to150 mg): ??Benefit reported on the increased Seroquel dose Class 1 obesity:??Body mass index is 30.3 kg/m??., complicates all aspects of care ?? RESOLVED: Respiratory failure: intubated for surgery at OSH and transferred to ICU Pneumonia: treated with broad spectrum antibiotics in ICU Ileus: Seen on KUB 09/25, resolved with NG decompression KUB negative on 10/01 #??COVID-19 positive??- Recovered.??PCR positive on 09/23/2021. Repeat negative x2. No supplemental oxygen requirement. No treatment required #??Acute encephalopathy (due to acute illness, ICU care, delirium, and alcohol abuse): ??Resolved -CT head was negative?? Surgeries and Procedures Procedures performed in this encounter Procedures ??? Critical Care ??? Critical Care ??? Critical Care Medication List .. lisinopril 10 MG tablet Take 1 tablet (10 mg total) by mouth 1 (one) time each day. Start taking on: October 17, 2021 melatonin 3 MG tablet Take 2 tablets (6 mg total) by mouth every night. naloxone 4 mg/0.1 mL nasal spray Commonly known as: Narcan Administer 1 spray (4 mg total) into affected nostril(s) if needed for opioid reversal. Call 911. Give 4 mg (1 spray) into one nostril. Repeat every 2-3 minutes as needed, alternating nostrils, untilmedical assistance arrives. nicotine 21 MG/24HR patch Commonly known as: Nicoderm CQ Place 1 patch on the skin 1 (one) time each day. Start taking on: October 17, 2021 PARoxetine 40 MG tablet Commonly known as: Paxil Take 40 mg by mouth 1 (one) time each day in the morning. * QUEtiapine 50 MG tablet Commonly known as: SEROquel Take 50 mg by mouth every night. * QUEtiapine 100 MG tablet Commonly known as: SEROquel Take 100 mg by mouth every night. * This list has 2 medication(s) that are the same as other medications prescribed for you. Read thedirections carefully, and ask your doctor or other care provider to review them with you. Where to Get Your Medications These medications were sent to [facility] [place], [place] - [address] [facility] [id number] ?? naloxone 4 mg/0.1 mL nasal spray Information about where to get these medications is not yet available Ask your nurse or doctor about these medications ?? lisinopril 10 MG tablet ?? melatonin 3 MG tablet ?? nicotine 21 MG/24HR patch Discharge Diagnosis Medical Problems Active and Resolved Hospital Problems Hospital Sepsis (CMS/HCC) Respiratory failure with hypoxia (CMS/HCC) Hypomagnesemia Hypoglycemia * (Principal) Superficial dehiscence of operation wound Overview Addendum 10/10/2021 4:53 PM by Jose Cruz Mello MD s/p ex-lap with washout of tubo-ovarian abscess at OSH 09/12 10/08 - Maximilian removed at bedside and old hematoma washed out/evacuated. No evidence of infection, Fascia probed and is intact. 10/10 - more superficial opening of wound, converted to negative pressure therapy dressing (white sponge at base of wound with black on top) Outpatient Follow-Up No future appointments. Test Results Pending At Discharge Pertinent Physical Exam At Time of Discharge Physical Exam Vitals and nursing note reviewed. Constitutional: Appearance: Normal appearance. She is not ill-appearing or diaphoretic. HENT: Head: Normocephalic and atraumatic. Eyes: General: No scleral icterus. Cardiovascular: Rate and Rhythm: Normal rate and regular rhythm. Pulses: Normal pulses. Pulmonary: Effort: Pulmonary effort is normal. Abdominal: General: Abdomen is flat. Comments: Central wound vac in place. Mild tenderness but w/o peritoneal signs on palpations Musculoskeletal: General: No swelling. Cervical back: Normal range of motion. Skin: General: Skin is warm. Neurological: General: No focal deficit present. Mental Status: She is alert. Mental status is at baseline. Psychiatric: Mood and Affect: Mood normal. Behavior: Behavior normal. Discharge Disposition/Condition Disposition: Acute Rehab Condition: Stable I personally spent ??a total of 35 minutes on this encounter. ??Greater 50% of time is spent in face to face with patient, counseling and discussion and/or coordination of care. * Progress Notes - Ghassan Curry MD - 10/15/2021 3:02 PM EST Hospital Medicine Progress Note (10/15/2021) Rounding Attending Provider: Ghassan Curry MD Primary Care Physician: Rakan Dobson External ProviderMD (Inactive) Admission Date: 09/23/2021 Patient Summary Rosendo Roach is a 46 y.o. female who was who was undergoing inpatient alcohol detox, but becameacutely ill and was admitted to [facility] on 09/10/2021 with ascending cholangitis, peritonitis, pneumoperitoneum, and a left tubo-ovarian abscess, for which she underwent ex- lap with drainage and washout. She remained intubated after surgery and imaging showed bilateral pneumonia - respiratory PCR was negative for flu and COVID-19. She failed an SBT and, despite, decreased sedation, would not follow commands. She was persistently febrile and repeat imaging demonstrated colon wall thickening, persistent pneumonia, pleural effusions and LLL collapse. She was transferred to theICU here on 09/23/2021, where she completed a course of broad spectrum antibiotics to cover both abdominal infection and pneumonia. She was also incidentally found to be COVID-19 positive on repeat testing, but never required treatment for this. She now has two negative COVID tests, so she is off isolation. Now working towards acute rehab placement. Subjective: No acute events overnight. Stated still has some soreness in her lower abd but not in acute pain. No fever or chills reported. Review of Systems: Review of Systems Constitutional: Negative for chills and fever. HENT: Negative for congestion. Eyes: Negative for visual disturbance. Respiratory: Negative for shortness of breath. Cardiovascular: Negative for chest pain. Gastrointestinal: Negative for abdominal distention. Endocrine: Negative for polyuria. Genitourinary: Negative for difficulty urinating. Musculoskeletal: Negative for arthralgias. Skin: Positive for wound. Negative for color change. Allergic/Immunologic: Negative for immunocompromised state. Neurological: Positive for weakness. Hematological: Negative for adenopathy. Psychiatric/Behavioral: Negative for agitation. Objective: Last Recorded Vitals Blood pressure 118/79, pulse 98, temperature 37.2 ??C (98.9 ??F), resp. rate 16, height 1.626 m (5'4.02 ), weight 80.2 kg (176 lb 12.9 oz), SpO2 94 %. Physical Exam Physical Exam Vitals and nursing note reviewed. Constitutional: Appearance: Normal appearance. She is not ill-appearing or diaphoretic. HENT: Head: Normocephalic and atraumatic. Eyes: General: No scleral icterus. Cardiovascular: Rate and Rhythm: Normal rate and regular rhythm. Pulses: Normal pulses. Pulmonary: Effort: Pulmonary effort is normal. Abdominal: General: Abdomen is flat. Comments: Central wound vac in place. Mild tenderness but w/o peritoneal signs on palpations Musculoskeletal: General: No swelling. Cervical back: Normal range of motion. Skin: General: Skin is warm. Neurological: General: No focal deficit present. Mental Status: She is alert. Mental status is at baseline. Psychiatric: Mood and Affect: Mood normal. Behavior: Behavior normal. Medication Current Facility-Administered Medications Medication Dose Route Frequency Provider Last Rate Last Admin ??? acetaminophen (Tylenol) tablet 650 mg 650 mg Oral q4h PRN Mark Smith NP 650 mg at 10/13/21 1111 ??? alteplase (Cathflo Activase) injection 2 mg 2 mg Intracatheter PRN Mark Smith NP ??? calcium carbonate (Tums) chewable tablet 500 mg 500 mg Oral 4x daily PRN Bud Alas MD 500mg at 10/12/21 0826 ??? enoxaparin (Lovenox) syringe 40 mg 40 mg Subcutaneous Daily with dinner Mark Smith NP 40 mg at 10/02/21 1832 ??? famotidine (Pepcid) tablet 20 mg 20 mg Oral BID Kemar Healy MD 20 mg at 10/15/21 0817 ??? folic acid (Folvite) tablet 1 mg 1 mg Oral Daily Mark Smith NP 1 mg at 10/15/21 0817 ??? lisinopril tablet 10 mg 10 mg Oral Daily Hiral Infante MD 10 mg at 10/14/21 0947 ??? magnesium sulfate IVPB 4 g 4 g Intravenous Once Jamia Eller MD ??? melatonin tablet 6 mg 6 mg Oral Nightly Kemar Healy MD 6 mg at 10/14/212015 ??? mineral oil-hydrophilic petrolatum (Aquaphor) ointment 1 application 1 application Topical BID Mark Smith NP 1 application at 10/14/212043 ??? nicotine (Nicoderm CQ) 21 MG/24HR patch 1 patch 1 patch Transdermal Daily Kemar Healy MD 1 patch at 10/15/21816 ??? ondansetron (Zofran) injection 4 mg 4 mg Intravenous q6h PRN Mark Smith NP 4 mg at 10/01/21 1300 ??? PARoxetine (Paxil) tablet 20 mg 20 mg Oral Daily Kemar Healy MD 20 mg at 10/15/21 08 ??? QUEtiapine (SEROquel) tablet 100 mg 100 mg Oral Nightly Kemar Healy MD 100 mg at 10/14/212016 ??? sodium chloride 0.9 % flush 3 mL 3 mL Intravenous PRN Mark Smith NP ??? thiamine (Vitamin B-1) tablet 100 mg 100 mg Oral Daily Mark Smith NP 100 mg at 10/15/21 08 ??? traMADol (Ultram) tablet 100 mg 100 mg Oral q6h PRN Jamia Eller MD 100 mg at 10/14/21 1608 Lab Results: Recent Results (from the past 72 hour(s)) POCT glucose meter Collection Time: 10/12/21 4:34 PM Result Value Ref Range POCT Glucose 92 74 - 99 mg/dL Comment Manager Special Events ID Beatriz Israel Device ID [id number] Specimen Type POC Capillary POCT glucose meter Collection Time: 10/12/21 7:34 PM Result Value Ref Range POCT Glucose 100 (H) 74 - 99 mg/dL Comment Manager Special Events ID Maryam Morales Device ID [id number] Specimen Type POC Capillary POCT glucose meter Collection Time: 10/13/21 8:00 AM Result Value Ref Range POCT Glucose 65 (L) 74 - 99 mg/dL Comment Manager Special Events ID Sarah Westfall Device ID [id number] Specimen Type POC Capillary POCT glucose meter Collection Time: 10/13/21 8:50 AM Result Value Ref Range POCT Glucose 90 74 - 99 mg/dL Comment Manager Special Events ID Ronel Lovett Device ID [id number] Specimen Type POC Capillary POCT glucose meter Collection Time: 10/13/21 12:37 PM Result Value Ref Range POCT Glucose 83 74 - 99 mg/dL Comment Manager Special Events ID Sarah Westfall Device ID [id number] Specimen Type POC Capillary POCT glucose meter Collection Time: 10/13/21 4:36 PM Result Value Ref Range POCT Glucose 122 (H) 74 - 99 mg/dL Comment Manager Special Events ID Sarah Westfall Device ID [id number] Specimen Type POC Capillary POCT glucose meter Collection Time: 10/13/21 7:56 PM Result Value Ref Range POCT Glucose 111 (H) 74 - 99 mg/dL Comment Manager Special Events ID LucyMaryam tsai Device ID [id number] Specimen Type POC Capillary POCT glucose meter Collection Time: 10/14/21 8:04 AM Result Value Ref Range POCT Glucose 57 (L) 74 - 99 mg/dL Comment Manager Special Events ID Mallory Peacock Device ID [id number] Specimen Type POC Capillary POCT glucose meter Collection Time: 10/14/21 8:53 AM Result Value Ref Range POCT Glucose 64 (L) 74 - 99 mg/dL Comment Manager Special Events ID Mallory Peacock Device ID [id number] Specimen Type POC Capillary POCT glucose meter Collection Time: 10/14/21 10:38 AM Result Value Ref Range POCT Glucose 97 74 - 99 mg/dL Comment Manager Special Events ID Ronel Lovett Device ID [id number] Specimen Type POC Capillary POCT glucose meter Collection Time: 10/14/21 12:04 PM Result Value Ref Range POCT Glucose 105 (H) 74 - 99 mg/dL Comment Manager Special Events ID Mallory Peacock Device ID [id number] Specimen Type POC Capillary POCT glucose meter Collection Time: 10/14/21 4:54 PM Result Value Ref Range POCT Glucose 89 74 - 99 mg/dL Comment Manager Special Events ID Crissyjohnny Mallory Device ID [id number] Specimen Type POC Capillary POCT glucose meter Collection Time: 10/14/21 8:07 PM Result Value Ref Range POCT Glucose 82 74 - 99 mg/dL Comment Manager Special Events ID Martha Chao Device ID [id number] Specimen Type POC Capillary CBC and differential Collection Time: 10/14/21 8:39 PM Result Value Ref Range WBC Count 7.96 3.70 - 10.30 10*3/uL RBC Count 2.93 (L) 3.90 - 5.20 10*6/uL HGB 9.3 (L) 11.2 - 15.7 g/dL HCT 30.5 (L) 34.0 - 45.0 % Platelet Count 300 155 - 369 10*3/uL MCV 104 (H) 79 - 98 fL MCH 31.7 26.0 - 32.0 pg MCHC 30.5 (L) 30.7 - 35.5 g/dL RDW 17.6 (H) 11.5 - 14.5 % MPV 9.3 8.8 - 12.5 fL nRBC 0.0 <=0.0 per 100 WBCs Differential Type Automated Neutrophils % 54.0 % Lymphocytes % 29.0 % Monocytes % 9.0 % Eosinophils % 7.0 % Basophils % 1.0 % Immature Granulocytes % 0.0 % Neutrophils Absolute 4.32 1.60 - 6.10 10*3/uL Lymphocytes Absolute 2.30 1.20 - 3.90 10*3/uL Monocytes Absolute 0.68 0.30 - 0.90 10*3/uL Eosinophils Absolute 0.59 (H) 0.00 - 0.50 10*3/uL Basophils Absolute 0.04 0.00 - 0.10 10*3/uL Immature Granulocytes Absolute 0.03 0.00 - 0.06 10*3/uL Basic metabolic panel Collection Time: 10/14/21 8:39 PM Result Value Ref Range Glucose, Plasma 86 74 - 99 mg/dL BUN, Plasma 7 7 - 21 mg/dL Creatinine, Plasma 0.80 0.60 - 1.10 mg/dL BUN/Creatinine Ratio 9 Sodium, Plasma 137 136 - 145 mmol/L Potassium, Plasma 4.4 3.7 - 4.8 mmol/L Chloride, Plasma 101 97 - 107 mmol/L CO2, Plasma 27 22 - 29 mmol/L Anion Gap 9 6 - 16 mmol/L Total Calcium, Plasma 8.9 8.9 - 10.2 mg/dL eGFR >60 >60 mL/min/1.73m*2 eGFR, if AFR/AM >60 >60 mL/min/1.73m*2 Magnesium Collection Time: 10/14/21 8:39 PM Result Value Ref Range Magnesium, Plasma 1.7 (L) 1.9 - 2.4 mg/dL POCT glucose meter Collection Time: 10/15/21 7:37 AM Result Value Ref Range POCT Glucose 78 74 - 99 mg/dL Comment Manager Special Events ID Alba Mckoy Device ID [id number] Specimen Type POC Capillary Echo, Adult Transthoracic Complete Collection Time: 10/15/21 9:11 AM Result Value Ref Range BSA 1.9 m2 MV E Vmax 70.8 cm/s MV A Vmax 92.2 cm/s MV E/A 0.8 cm/s TR Vmax 223.0 cm/s TR Max PG 20 mmHG PA OH(ACCEL) 34.4 mmHg Baseline Systolic BP 95 Baseline Diastolic BP 67 LVIDs 37 mm IVSd 9 mm LVIDd 47 mm LVPWd 8 mm LV MASS(C)D 134 g LV RWT 0.36 mm LV Lat e' Velocity 9.8 cm/s LV Sept e' Dre 6.8 cm/s Lat E/e' 7.2 Sep E/e' 10.4 Avg E/e' 8.8 LAV(MOD-bp) Indexed 18 mL/m2 LAV(MOD-4ch) 33 mL LAV(MOD-2ch) 36 mL RVSP 28 mmHg RAP systole 8 mmHg I personally reviewed and analyzed the laboratory findings listed above. Imaging (past 24h): No imaging done in the last 24 hours. Asessement and Plan Rosendo Roach is a 46 y.o. female who was who was undergoing inpatient alcohol detox, but becameacutely ill and was [facility] Hospital on 09/10/2021 with ascending cholangitis, peritonitis, pneumoperitoneum, and a left tubo-ovarian abscess, for which she underwent ex- lap with drainage and washout.?She remained intubated after surgery and imaging showed bilateral pneumonia - respiratory PCR was negative for flu and COVID-19. She failed an SBT and, despite, decreased sedation, would not follow commands. ??She was persistently febrile and repeat imaging demonstrated colon wall thickening, persistent pneumonia, pleural effusions and LLL collapse.??She was transferred to the ICU here on 09/23/2021, where she completed a course of broad spectrum antibiotics??to cover both abdominal infection and pneumonia. ??She was also incidentally found to be COVID-19 positive on repeat testing, but??never??required treatment for this. ??She now has two negative COVID tests, so she is off??isolation. Now working towards acute rehab placement. ?? Recent sepsis??(now resolved)??due to ascending cholangitis, peritonitis, pneumoperitoneum, and a left tubo-ovarian abscess??with residual abdominal wound recently complicated by dehiscence and hematoma -History:??S/p exlap on 09/12??and??ICU care/pressors.??Ovarian abscess culture grew nicanor glabrata, e. Coli, and enterobacter.??S/p meropenem, cefepime, and metronidazole (s/p 10 days of antibiotics).??S/p micafungin (stopped 10/02) ??-General surgery??did washout and hematoma evacuation on 10/07.??They removed the maximilian in the middle of the wound. ??TBD when to remove??the rest of the??abdominal maximilian (will leave in place for now??since the central part of the wound was pulling apart).??No further bleeding on exam -Wound dehiscence: Now has wound vac in place. Change Friday, friday, friday.?? -Follow up with [facility] surgeon??on discharge. Alcohol dependence (with history of DTs and withdrawal seizures) -TRACEY consult -patient declined??acamprosate or naltrexone??when discussed with TRACEY -She said that she was using alcohol to help her sleep, but that the Seroquel is working well for her now -On thiamine and folate ?? Hepatic steatosis (due to alcohol abuse):?? Encourage sobriety ?? Tobacco dependence: Smoking cessation counseling and NRT -Nicotine replacement prn ?? Hypoglycemia:?? -Low glucose levels possibly related to poor oral intake -Blood sugars reviewed and remain >70 without additional dextrose. Encourage PO intake.??Diet liberalized to improve intake. Nutrition supplements added -Nutrition consult to help with food preferences and nutrition optimization.?? - Asymptomatic when BG is low ?? CHRONIC: Hypertension: Monitor BPs, reintroduce medications as needed Depression and anxiety: Increased Seroquel and resumed Paxil on 10/02 Insomnia: She has a history of chronic use of Ambien (but trying to avoid benzodiazepines); Discussed with Psychiatry on 10/02, increased Seroquel to 100 mg qPM (and can consider increasing further to150 mg): ??Benefit reported on the increased Seroquel dose Class 1 obesity:??Body mass index is 30.3 kg/m??., complicates all aspects of care ?? RESOLVED: Respiratory failure: intubated for surgery at OSH and transferred to ICU Pneumonia: treated with broad spectrum antibiotics in ICU Ileus: Seen on KUB 09/25, resolved with NG decompression KUB negative on 10/01 #??COVID-19 positive??- Recovered.??PCR positive on 09/23/2021. Repeat negative x2. No supplemental oxygen requirement. No treatment required #??Acute encephalopathy (due to acute illness, ICU care, delirium, and alcohol abuse): ??Resolved -CT head was negative?? Code Status: Full Code I personally spent a total of 35 minutes on this encounter. Greater 50% of time is spent in face toface with patient, counseling and discussion and/or coordination of care. Ghassan Curry MD Hospital Medicine Attending Pager: [phone] and secure chat * Consults - Divina Cruz RD - 10/15/2021 1:54 PM EST Adult Nutrition Evaluation Note Rosendo Roach 46 y.o. female CSN: [id number] Room/Bed 602/602A Nutrition evaluation type: follow-up Reason for evaluation: Hospital course: 46 year old female who transferred to [facility] 09/23 for failure to wean, persistent fevers and continued acute encephalopathy. The patient was found incidentally COVID[facility]19 [facility] With acute hypoxic respiratory failure requiring mechanical ventilation (09/27/21) Pt was extubated 09/26/21. XR abdomen 09/25/21 with findings most suggestive of developing ileus. Improving acute encephalopathy (10/01/21): Ileus- resolved, Hypernatremia improving. Pt transferred to floor from ICU on 09/29 per team. Encephalopathy. 10/10: Pt s/p ex lap with washout of tubo-ovarian abscess on 09/12 - old hematoma evacuated and maximilian removed 10/08. Pending NICHOLE for discharge. 10/15: Noted with some hypoglycemia. Transferred to [facility]. Past medical/ surgical history: chronic liver disease, cirrhosis, alcohol use disorder admitted to OSH on 09/10 from a detox center. Imaging showed acute ascending colitis/ peritonitis and pneumoperitoneum s/p ex-lap on 09/12 and a tubo-ovarian abscess was noted. New sepsis 09/[address] concerning for bilateral pneumonia and lower lobe collapse. Started on TPN (unsure etiology), depression, HTN, protein calorie malnutrition, section, anxiety disorder, insomnia Social history: Pt reported that she has been smoking; hx of 32 pack-year smoking history. Current alcohol use of about 21-30 standard drinks per week. Additional comments: 10/10: Visited pt, she reports poor appetite since her covid diagnosis. Does not like her mechanicalsoft diet as she does not like lynsey do for advancement to regular diet. Food preferences: turkey sandwiches, jell-o, cereal. Does not like orange juice. Agreeable to Boost Breeze supplements - wild perry only. Does not like traditional Boost supplements. Magic cups in place. No n/v/d/c. Having BMs. Reports her UBW is 135 lbs. 10/15: Pt unavailable during time of visit. Pt consuming ~50% of meals. Vitals and Basic Assessment: BP: 118/79 Temp: 37.2 ??C (98.9 ??F) Invasive Ventilator Initiated (ETT/Trach Only): Yes Oxygen Therapy: None (Room air) O2 Delivery Method: Nasal cannula Camden Coma Scale Score: 15 Johan Scale Score: 20 Javier/Cubbin Pressure Risk Score: 46 Last BM Date: 10/15/21 GI Symptoms: Diarrhea Edema: Other (Comment) (none) Skin: Lower right abdomen, mid abdomen incision Allergies: No known food allergies Medications: enoxaparin, 40 mg, Subcutaneous, Daily with dinner famotidine, 20 mg, Oral, BID folic acid, 1 mg, Oral, Daily lisinopril, 10 mg, Oral, Daily magnesium sulfate, 4 g, Intravenous, Once melatonin, 6 mg, Oral, Nightly mineral oil-hydrophilic petrolatum, 1 application, Topical, BID nicotine, 1 patch, Transdermal, Daily PARoxetine, 20 mg, Oral, Daily QUEtiapine, 100 mg, Oral, Nightly thiamine, 100 mg, Oral, Daily PRN medications: acetaminophen, alteplase, calcium carbonate, ondansetron, Insert peripheral IV AND Saline lock IV AND sodium chloride, traMADol Meds were reviewed: Yes Labs: Lab Results Component Value Date GLUCOSE 86 10/14/2021 CALCIUM 8.9 10/14/2021 NA 137 10/14/2021 K 4.4 10/14/2021 CO2 27 10/14/2021 CL 101 10/14/2021 BUN 7 10/14/2021 CREATININE 0.80 10/14/2021 Lab Results Component Value Date WBC 7.96 10/14/2021 HGB 9.3 (L) 10/14/2021 HCT 30.5 (L) 10/14/2021 MCV 104 (H) 10/14/2021 PLT 300 10/14/2021 Lab Results Component Value Date ALBUMIN 2.1 (L) 10/08/2021 Note albumin is a negative acute phase protein and not a good indicator of nutrition status. Lab Results Component Value Date CRP 42.2 (H) 10/10/2021 Lab Results Component Value Date HGBA1C 4.9 09/23/2021 POC glucose: 57-105 mg/dl Anthropometrics: Height: 162.6 cm (5' 4.02 ) Weight: 80.2 kg (176 lb 12.9 oz) BMI (Calculated): 30.33 Weight Evaluation: Obese-Class 1 (BMI 30-34.9) Arthur Body Weight (kg): 54.5 Percent Arthur Body Weight: 153 Adjusted Body Weight (kg): 61.8 Wt Readings from Last 12 Encounters: 10/09/21 80.2 kg (176 lb 12.9 oz) 02/26/21 70.2 kg (154 lb 12.2 oz) -Weight gain of 9.9 Kg in 7 MO. Estimated Needs: Kcal/ K-30 Kcal Provided: 8782-3880 Kcal Needs Based On: Adjusted weight Gm Protein/ Kg : 1.2-1.5 Protein Provided: 74-93 Protein Needs Based On: Adjusted weight Fluid Provided: per MD Current Nutrition Intake: Current Diet Order Regular Avg PO Intakes per RN Flowsheets 50% x 6 meals Oral Nutrition Supplements Magic Cups TID, Boost Breeze daily Diet EDU Provided Will monitor need throughout LOS Congregational/ Cultural Needs Ethnic needs not identified at this time Additional Comments Nutrition Focused Physical Exam: Physical exam performed on (date): 10/10/21 Temples (muscles): None Clavicle (muscle): None Shoulder (muscle): None Interosseous (muscle): None Calf (muscle): None Orbital (fat): None Triceps (fat): Moderate Assessment of Malnutrition: malnutrition not identified at this time Nutrition Problem: Altered GI function related ileus as evidenced by vomiting, distended abdomen, NPO, now on clears --> mechanical soft diet --> regular diet Status of Nutrition Diagnosis: Improvement shown Nutrition Interventions and Recommendations: - Continue regular diet as tolerated --Continue Boost Breeze daily --Continue Magic cups TID *Please note that due to current supply chain issues, pt may not consistently receive supplement asordered. This is actively working to be resolved.* - If TF desired recommend Peptamen 1.5. Begin at low rate of 20 ml/hr. Advance TF slowly as tolerated to eventual goal of 50 ml/hr (1100 ml/day) provides 1650 kcal, 75g protein, 207g CHO, 62g fat, 0gfiber, 845 ml water and 110% RDIs vit/min. --FW per MD team - Rec MVI with minerals daily - Rec obtaining new weight 1x weekly Nutrition Monitoring and Goals: - Will monitor PO intake, weight status, lab results, GI tolerance, and skin integrity. -- Patient will consume >50% of most meals (not met, continue). - Pt will maintain weight this admission. (new) Discharge Planning: RD to monitor for nutrition related discharge needs. Acuity Level: [address] * Progress Notes - Bud Alas MD - 10/14/2021 11:46 PM EST Transfer acceptance note Patient seen and examined. Patient transferred from [facility]. Patient resting comfortably in bed, denies complaints. Chart reviewed, including orders, labs, and imaging. Progress note from 10/14 reviewed and agree with plan of care * Progress Notes - Jamia Eller MD - 10/14/2021 12:03 PM EST Subjective Patient seen and examined at bedside. Denies any pain at the moment. Denies any nausea, vomiting, or any other symptoms. Has regular BMs.??Noted to have hypoglycemia in am, likely due to poor intake.Encouraged to eat to prevent hypoglycemia. Review of Systems Constitutional: Positive for??appetite change. Negative for??fatigue??and fever. Respiratory: Negative for??cough??and shortness of breath. ?? Gastrointestinal: Negative for??constipation,??diarrhea,??nausea??and vomiting.?? Objective Physical Exam Constitutional: ?General: She is not in acute distress. ?Appearance: Normal appearance. HENT: ?Head: Normocephalic??and atraumatic. ?Nose: Nose normal. No??congestion. ?Mouth/Throat: ?Mouth: Mucous membranes are moist. Eyes: ?General: No scleral icterus. ?Right eye: No discharge. ?Left eye: No discharge. Cardiovascular: ?Rate and Rhythm: Regular rhythm.??Tachycardia??present. ?Heart sounds: No murmur??heard. Pulmonary: ?Effort: Pulmonary effort is normal. No??respiratory distress. Abdominal: ?General: Bowel sounds are normal. ?Palpations: Abdomen is soft. ?Tenderness: There is abdominal tenderness. There is no??guarding??or rebound. ?Comments:??Wound vac in place. No signs of active infection.?? Musculoskeletal: ?Right lower leg: No edema. ?Left lower leg: No edema. Skin: ?General: Skin is warm??and dry. ?Findings: Lesion??present. Neurological: ?General: No focal deficit??present. ?Mental Status: She is alert??and oriented to person, place, and time. Psychiatric: ?Mood and Affect: Mood??normal. ?Behavior: Behavior??normal Last Recorded Vitals Blood pressure 149/89, pulse 94, temperature 36.8 ??C (98.3 ??F), resp. rate 18, height 1.626 m (5'4.02 ), weight 80.2 kg (176 lb 12.9 oz), SpO2 93 %. Assessment/Plan Principal Problem: Superficial dehiscence of operation wound Active Problems: Sepsis (CMS/HCC) Hypomagnesemia Hypoglycemia Rosendo Roach is a 46 y.o. female who was who was undergoing inpatient alcohol detox, but becameacutely ill and was admitted to [facility] on 09/10/2021 with ascending cholangitis, peritonitis, pneumoperitoneum, and a left tubo-ovarian abscess, for which she underwent ex- lap with drainage and washout.?She remained intubated after surgery and imaging showed bilateral pneumonia - respiratory PCR was negative for flu and COVID-19. She failed an SBT and, despite, decreased sedation, would not follow commands. ??She was persistently febrile and repeat imaging demonstrated colon wall thickening, persistent pneumonia, pleural effusions and LLL collapse.??She was transferred to the ICU here on 09/23/2021, where she completed a course of broad spectrum antibiotics??to cover both abdominal infection and pneumonia. ??She was also incidentally found to be COVID-19 positive on repeat testing, but??never??required treatment for this. ??She now has two negative COVID tests, so she is off??isolation. Now working towards acute rehab placement. ?? Recent sepsis??(now resolved)??due to ascending cholangitis, peritonitis, pneumoperitoneum, and a left tubo-ovarian abscess??with residual abdominal wound recently complicated by dehiscence and hematoma -History:??S/p exlap on 09/12??and??ICU care/pressors.??Ovarian abscess culture grew nicanor glabrata, e. Coli, and enterobacter.??S/p meropenem, cefepime, and metronidazole (s/p 10 days of antibiotics).??S/p micafungin (stopped 10/02) ??-General surgery??did washout and hematoma evacuation on 10/07.??They removed the maximilian in the middle of the wound. ??TBD when to remove??the rest of the??abdominal maximilian (will leave in place for now??since the central part of the wound was pulling apart).??No further bleeding on exam -Wound dehiscence: Now has wound vac in place. Change Friday, friday, friday.?? -Follow up with [facility] surgeon??on discharge. ? Alcohol dependence (with history of DTs and withdrawal seizures) -TRACEY consult -patient declined??acamprosate or naltrexone??when discussed with TRACEY -She said that she was using alcohol to help her sleep, but that the Seroquel is working well for her now -On thiamine and folate ?? Hepatic steatosis (due to alcohol abuse):??Encourage sobriety ?? Tobacco dependence: Smoking cessation counseling and NRT -Nicotine replacement prn ?? Hypoglycemia:?? -Low glucose levels possibly related to poor oral intake -Blood sugars reviewed and remain >70 without additional dextrose. Encourage PO intake.??Diet liberalized to improve intake. Nutrition supplements added -Nutrition consult to help with food preferences and nutrition optimization.? CHRONIC: Hypertension: Monitor BPs, reintroduce medications as needed Depression and anxiety: Increased Seroquel and resumed Paxil on 10/02 Insomnia: She has a history of chronic use of Ambien (but trying to avoid benzodiazepines); Discussed with Psychiatry on 10/02, increased Seroquel to 100 mg qPM (and can consider increasing further to150 mg): ??Benefit reported on the increased Seroquel dose Class 1 obesity:??Body mass index is 30.3 kg/m??., complicates all aspects of care ?? RESOLVED: Respiratory failure: intubated for surgery at OSH and transferred to ICU Pneumonia: treated with broad spectrum antibiotics in ICU Ileus: Seen on KUB 09/25, resolved with NG decompression KUB negative on 10/01 #??COVID-19 positive??- Recovered.??PCR positive on 09/23/2021. Repeat negative x2. No supplemental oxygen requirement. No treatment required #??Acute encephalopathy (due to acute illness, ICU care, delirium, and alcohol abuse): ??Resolved -CT head was negative? Dispo: referred to rehab, medically stable. Waiting for placement.? Code status -??Full Code?? * Progress Notes - Jamia Eller MD - 10/13/2021 12:55 PM EST Subjective Patient seen and examined at bedside. Denies any pain at the moment. Denies any nausea, vomiting, or any other symptoms. Has regular BMs. Review of Systems Constitutional: Positive for??appetite change. Negative for??fatigue??and fever. Respiratory: Negative for??cough??and shortness of breath. ?? Gastrointestinal: Negative for??constipation,??diarrhea,??nausea??and vomiting.?? Objective Physical Exam Constitutional: ?General: She is not in acute distress. ?Appearance: Normal appearance. HENT: ?Head: Normocephalic??and atraumatic. ?Nose: Nose normal. No??congestion. ?Mouth/Throat: ?Mouth: Mucous membranes are moist. Eyes: ?General: No scleral icterus. ?Right eye: No discharge. ?Left eye: No discharge. Cardiovascular: ?Rate and Rhythm: Regular rhythm.??Tachycardia??present. ?Heart sounds: No murmur??heard. Pulmonary: ?Effort: Pulmonary effort is normal. No??respiratory distress. Abdominal: ?General: Bowel sounds are normal. ?Palpations: Abdomen is soft. ?Tenderness: There is abdominal tenderness. There is no??guarding??or rebound. ?Comments:??Wound vac in place. No signs of active infection.?? Musculoskeletal: ?Right lower leg: No edema. ?Left lower leg: No edema. Skin: ?General: Skin is warm??and dry. ?Findings: Lesion??present. Neurological: ?General: No focal deficit??present. ?Mental Status: She is alert??and oriented to person, place, and time. Psychiatric: ?Mood and Affect: Mood??normal. ?Behavior: Behavior??normal Last Recorded Vitals Blood pressure 129/87, pulse 101, temperature 36.9 ??C (98.5 ??F), resp. rate 16, height 1.626 m (5' 4.02 ), weight 80.2 kg (176 lb 12.9 oz), SpO2 96 %. Assessment/Plan Principal Problem: Superficial dehiscence of operation wound Active Problems: Sepsis (CMS/HCC) Hypomagnesemia Hypoglycemia Rosendo Roach is a 46 y.o. female who was who was undergoing inpatient alcohol detox, but becameacutely ill and was admitted to [facility] on 09/10/2021 with ascending cholangitis, peritonitis, pneumoperitoneum, and a left tubo-ovarian abscess, for which she underwent ex- lap with drainage and washout.?She remained intubated after surgery and imaging showed bilateral pneumonia - respiratory PCR was negative for flu and COVID-19. She failed an SBT and, despite, decreased sedation, would not follow commands. ??She was persistently febrile and repeat imaging demonstrated colon wall thickening, persistent pneumonia, pleural effusions and LLL collapse.??She was transferred to the ICU here on 09/23/2021, where she completed a course of broad spectrum antibiotics??to cover both abdominal infection and pneumonia. ??She was also incidentally found to be COVID-19 positive on repeat testing, but??never??required treatment for this. ??She now has two negative COVID tests, so she is off??isolation. Now working towards acute rehab placement. ?? Recent sepsis??(now resolved)??due to ascending cholangitis, peritonitis, pneumoperitoneum, and a left tubo-ovarian abscess??with residual abdominal wound recently complicated by dehiscence and hematoma -History:??S/p exlap on 09/12??and??ICU care/pressors.??Ovarian abscess culture grew nicanor glabrata, e. Coli, and enterobacter.??S/p meropenem, cefepime, and metronidazole (s/p 10 days of antibiotics).??S/p micafungin (stopped 10/02) ??-General surgery??did washout and hematoma evacuation on 10/07.??They removed the maximilian in the middle of the wound. ??TBD when to remove??the rest of the??abdominal maximilian (will leave in place for now??since the central part of the wound was pulling apart).??No further bleeding on exam -Wound dehiscence: Now has wound vac in place. Change Friday, friday, friday.?? -Follow up with [facility] surgeon??on discharge. ? Alcohol dependence (with history of DTs and withdrawal seizures) -TRACEY consult -patient declined??acamprosate or naltrexone??when discussed with TRACEY -She said that she was using alcohol to help her sleep, but that the Seroquel is working well for her now -On thiamine and folate ?? Hepatic steatosis (due to alcohol abuse):??Encourage sobriety ?? Tobacco dependence: Smoking cessation counseling and NRT -Nicotine replacement prn ?? Hypoglycemia:?? -Low glucose levels possibly related to poor oral intake -Blood sugars reviewed and remain >70 without additional dextrose. Encourage PO intake.??Diet liberalized to improve intake. Nutrition supplements added -Nutrition consult to help with food preferences and nutrition optimization.? CHRONIC: Hypertension: Monitor BPs, reintroduce medications as needed Depression and anxiety: Increased Seroquel and resumed Paxil on 10/02 Insomnia: She has a history of chronic use of Ambien (but trying to avoid benzodiazepines); Discussed with Psychiatry on 10/02, increased Seroquel to 100 mg qPM (and can consider increasing further to150 mg): ??Benefit reported on the increased Seroquel dose Class 1 obesity:??Body mass index is 30.3 kg/m??., complicates all aspects of care ?? RESOLVED: Respiratory failure: intubated for surgery at OSH and transferred to ICU Pneumonia: treated with broad spectrum antibiotics in ICU Ileus: Seen on KUB 09/25, resolved with NG decompression KUB negative on 10/01 #??COVID-19 positive??- Recovered.??PCR positive on 09/23/2021. Repeat negative x2. No supplemental oxygen requirement. No treatment required #??Acute encephalopathy (due to acute illness, ICU care, delirium, and alcohol abuse): ??Resolved -CT head was negative? Dispo: referred to rehab, medically stable. Waiting for placement. ?? Code status -??Full Code?? * Nursing Note - Shannon Yarbrough RN - 10/12/2021 6:00 PM EST 1800 Patient refused to have wound vac dressing changed. This nurse tried to assure pt and answer any questions she had about it but she said she just does not want it done today. States I am tired of being poked and prodded and just want to have a day off from it Patient also refused lab draw that was do earlier today as well as lovenox injection. Educated pt about these interventions and why they are ordered. * Progress Notes - Jamia Eller MD - 10/12/2021 1:50 PM EST Subjective Patient seen and examined at bedside. Denies any pain at the moment. Denies any nausea, vomiting, or any other symptoms. Has regular BMs. Review of Systems Constitutional: Positive for??appetite change. Negative for??fatigue??and fever. Respiratory: Negative for??cough??and shortness of breath. ?? Gastrointestinal: Negative for??constipation,??diarrhea,??nausea??and vomiting.? Objective Physical Exam Constitutional: ?General: She is not in acute distress. ?Appearance: Normal appearance. HENT: ?Head: Normocephalic??and atraumatic. ?Nose: Nose normal. No??congestion. ?Mouth/Throat: ?Mouth: Mucous membranes are moist. Eyes: ?General: No scleral icterus. ?Right eye: No discharge. ?Left eye: No discharge. Cardiovascular: ?Rate and Rhythm: Regular rhythm.??Tachycardia??present. ?Heart sounds: No murmur??heard. Pulmonary: ?Effort: Pulmonary effort is normal. No??respiratory distress. Abdominal: ?General: Bowel sounds are normal. ?Palpations: Abdomen is soft. ?Tenderness: There is abdominal tenderness. There is no??guarding??or rebound. ?Comments: Wound vac in place. No signs of active infection. Musculoskeletal: ?Right lower leg: No edema. ?Left lower leg: No edema. Skin: ?General: Skin is warm??and dry. ?Findings: Lesion??present. Neurological: ?General: No focal deficit??present. ?Mental Status: She is alert??and oriented to person, place, and time. Psychiatric: ?Mood and Affect: Mood??normal. ?Behavior: Behavior??normal. Last Recorded Vitals Blood pressure 108/67, pulse 99, temperature 36.8 ??C (98.3 ??F), resp. rate 16, height 1.626 m (5'4.02 ), weight 80.2 kg (176 lb 12.9 oz), SpO2 94 %. Assessment/Plan Principal Problem: Superficial dehiscence of operation wound Active Problems: Sepsis (CMS/HCC) Hypomagnesemia Hypoglycemia Rosendo Roach is a 46 y.o. female who was who was undergoing inpatient alcohol detox, but becameacutely ill and was admitted to [facility] on 09/10/2021 with ascending cholangitis, peritonitis, pneumoperitoneum, and a left tubo-ovarian abscess, for which she underwent ex- lap with drainage and washout.?She remained intubated after surgery and imaging showed bilateral pneumonia - respiratory PCR was negative for flu and COVID-19. She failed an SBT and, despite, decreased sedation, would not follow commands. ??She was persistently febrile and repeat imaging demonstrated colon wall thickening, persistent pneumonia, pleural effusions and LLL collapse.??She was transferred to the ICU here on 09/23/2021, where she completed a course of broad spectrum antibiotics??to cover both abdominal infection and pneumonia. ??She was also incidentally found to be COVID-19 positive on repeat testing, but??never??required treatment for this. ??She now has two negative COVID tests, so she is off??isolation. Now working towards acute rehab placement. ?? Recent sepsis??(now resolved)??due to ascending cholangitis, peritonitis, pneumoperitoneum, and a left tubo-ovarian abscess??with residual abdominal wound recently complicated by dehiscence and hematoma -History:??S/p exlap on 09/12??and??ICU care/pressors.??Ovarian abscess culture grew nicanor glabrata, e. Coli, and enterobacter.??S/p meropenem, cefepime, and metronidazole (s/p 10 days of antibiotics).??S/p micafungin (stopped 10/02) ??-General surgery??did washout and hematoma evacuation on 10/07.??They removed the maximilian in the middle of the wound. ??TBD when to remove??the rest of the??abdominal maximilian (will leave in place for now??since the central part of the wound was pulling apart).??No further bleeding on exam -Wound dehiscence: Now has wound vac in place. Change Friday, friday, friday.?? -Follow up with [facility] surgeon??on discharge. ? Alcohol dependence (with history of DTs and withdrawal seizures) -TRACEY consult -patient declined??acamprosate or naltrexone??when discussed with TRACEY -She said that she was using alcohol to help her sleep, but that the Seroquel is working well for her now -On thiamine and folate ?? Hepatic steatosis (due to alcohol abuse): Encourage sobriety ?? Tobacco dependence: Smoking cessation counseling and NRT -Nicotine replacement prn ?? Hypoglycemia:?? -Low glucose levels possibly related to poor oral intake -Blood sugars reviewed and remain >70 without additional dextrose. Encourage PO intake.??Diet liberalized to improve intake. Nutrition supplements added -Nutrition consult to help with food preferences and nutrition optimization.? CHRONIC: Hypertension: Monitor BPs, reintroduce medications as needed Depression and anxiety: Increased Seroquel and resumed Paxil on 10/02 Insomnia: She has a history of chronic use of Ambien (but trying to avoid benzodiazepines); Discussed with Psychiatry on 10/02, increased Seroquel to 100 mg qPM (and can consider increasing further to150 mg): ??Benefit reported on the increased Seroquel dose Class 1 obesity:??Body mass index is 30.3 kg/m??., complicates all aspects of care ?? RESOLVED: Respiratory failure: intubated for surgery at OSH and transferred to ICU Pneumonia: treated with broad spectrum antibiotics in ICU Ileus: Seen on KUB 09/25, resolved with NG decompression KUB negative on 10/01 #??COVID-19 positive??- Recovered.??PCR positive on 09/23/2021. Repeat negative x2. No supplemental oxygen requirement. No treatment required #??Acute encephalopathy (due to acute illness, ICU care, delirium, and alcohol abuse): ??Resolved -CT head was negative? Dispo: referred to rehab, medically stable. Waiting for placement. ?? Code status -??Full Code? * Care Plan - Shannon Yarbrough RN - 10/12/2021 8:00 AM EST Problem: Adult Inpatient Plan of Care Goal: Plan of Care Review Outcome: Ongoing, Progressing Flowsheets (Taken 10/12/2021 0800) Progress: improving Plan of Care Reviewed With: patient Goal: Patient-Specific Goal (Individualized) Outcome: Ongoing, Progressing Goal: Absence of Hospital-Acquired Illness or Injury Outcome: Ongoing, Progressing Goal: Optimal Comfort and Wellbeing Outcome: Ongoing, Progressing * Progress Notes - Jamia Eller MD - 10/11/2021 1:45 PM EST Subjective Patient seen and examined at bedside. Appeared to be in considerable pain at the site of surgery. Denies any nausea, vomiting or any other symptoms. Review of Systems Constitutional: Positive for appetite change. Negative for fatigue and fever. Respiratory: Negative for cough and shortness of breath. Gastrointestinal: Negative for constipation, diarrhea, nausea and vomiting. Objective Physical Exam Constitutional: General: She is not in acute distress. Appearance: Normal appearance. HENT: Head: Normocephalic and atraumatic. Nose: Nose normal. No congestion. Mouth/Throat: Mouth: Mucous membranes are moist. Eyes: General: No scleral icterus. Right eye: No discharge. Left eye: No discharge. Cardiovascular: Rate and Rhythm: Regular rhythm. Tachycardia present. Heart sounds: No murmur heard. Pulmonary: Effort: Pulmonary effort is normal. No respiratory distress. Abdominal: General: Bowel sounds are normal. Palpations: Abdomen is soft. Tenderness: There is abdominal tenderness. There is no guarding or rebound. Comments: Wound vac in place. No signs of active infection. Musculoskeletal: Right lower leg: No edema. Left lower leg: No edema. Skin: General: Skin is warm and dry. Findings: Lesion present. Neurological: General: No focal deficit present. Mental Status: She is alert and oriented to person, place, and time. Psychiatric: Mood and Affect: Mood normal. Behavior: Behavior normal. Last Recorded Vitals Blood pressure 113/79, pulse (!) 112, temperature 37.1 ??C (98.7 ??F), temperature source Oral, resp. rate 16, height 1.626 m (5' 4.02 ), weight 80.2 kg (176 lb 12.9 oz), SpO2 93 %. Results from last 7 days Lab Units 10/10/21 0627 10/08/21 0357 10/05/21 0416 WBC 10*3/uL 6.92 6.83 9.51 HEMOGLOBIN g/dL 8.4* 7.7* 8.9* HEMATOCRIT % 28.8* 24.9* 28.5* PLATELETS 10*3/uL 343 410* 583* Results from last 7 days Lab Units 10/11/21 0613 10/10/21 0627 10/10/21 0627 10/08/21 0357 10/08/21 0357 SODIUM mmol/L 138 -- 136 -- 137 POTASSIUM mmol/L 3.9 -- 4.6 -- 3.6* CHLORIDE mmol/L 106 -- 107 -- 105 CO2 mmol/L 23 -- 17* -- 22 BUN mg/dL 8 -- 4* -- 3* CREATININE mg/dL 0.61 -- 0.62 -- 0.53* EGFR mL/min/1.73m*2 >60 -- >60 < > >60 EGFR, IF AFR/AM mL/min/1.73m*2 >60 -- >60 < > >60 GLUCOSE mg/dL 77 < > 77 < > 77 CALCIUM mg/dL 8.6* -- 8.2* -- 8.3* < > = values in this interval not displayed. Assessment/Plan Principal Problem: Superficial dehiscence of operation wound Active Problems: Sepsis (CMS/[facility]) Hypomagnesemia Hypoglycemia Rosendo Roach is a 46 y.o. female who was who was undergoing inpatient alcohol detox, but becameacutely ill and was admitted to [facility] on 09/10/2021 with ascending cholangitis, peritonitis, pneumoperitoneum, and a left tubo-ovarian abscess, for which she underwent ex- lap with drainage and washout. She remained intubated after surgery and imaging showed bilateral pneumonia - respiratory PCR was negative for flu and COVID-19. She failed an SBT and, despite, decreased sedation, would not follow commands. ??She was persistently febrile and repeat imaging demonstrated colonwall thickening, persistent pneumonia, pleural effusions and LLL collapse. She was transferred to the ICU here on 09/23/2021, where she completed a course of broad spectrum antibiotics to cover both abdominal infection and pneumonia. She was also incidentally found to be COVID-19 positive on repeat testing, but never required treatment for this. She now has two negative COVID tests, so she is off isolation. Now working towards acute rehab placement. ?? Recent sepsis (now resolved)??due to ascending cholangitis, peritonitis, pneumoperitoneum, and a left tubo-ovarian abscess with residual abdominal wound recently complicated by dehiscence and hematoma -History: S/p exlap on 09/12??and??ICU care/pressors. Ovarian abscess culture grew nicanor glabrata, e. Coli, and enterobacter. S/p meropenem, cefepime, and metronidazole (s/p 10 days of antibiotics). S/p micafungin (stopped 10/02) ??-General surgery did washout and hematoma evacuation on 10/07.??They removed the maximilian in the middle of the wound. ??TBD when to remove??the rest of the??abdominal maximilian (will leave in place fornow??since the central part of the wound was pulling apart).??No further bleeding on exam -Wound dehiscence: Now has wound vac in place. Change Friday, friday, friday. -Follow up with [facility] surgeon on discharge. ?? Hypomagnesemia - to be replaced. ?? Alcohol dependence (with history of DTs and withdrawal seizures) -TRACEY consult -patient declined acamprosate or naltrexone when discussed with TRACEY -She said that she was using alcohol to help her sleep, but that the Seroquel is working well for her now -On thiamine and folate ?? Hepatic steatosis (due to alcohol abuse): Encourage sobriety ?? Tobacco dependence: Smoking cessation counseling and NRT -Nicotine replacement prn ?? Hypoglycemia: -Low glucose levels possibly related to poor oral intake -Blood sugars reviewed and remain >70 without additional dextrose. Encourage PO intake. Diet liberalized to improve intake. Nutrition supplements added -Nutrition consult to help with food preferences and nutrition optimization.? CHRONIC: Hypertension: Monitor BPs, reintroduce medications as needed Depression and anxiety: Increased Seroquel and resumed Paxil on 10/02 Insomnia: She has a history of chronic use of Ambien (but trying to avoid benzodiazepines); Discussed with Psychiatry on 10/02, increased Seroquel to 100 mg qPM (and can consider increasing further to150 mg): ??Benefit reported on the increased Seroquel dose Class 1 obesity:??Body mass index is 30.3 kg/m??., complicates all aspects of care ?? RESOLVED: Respiratory failure: intubated for surgery at OSH and transferred to ICU Pneumonia: treated with broad spectrum antibiotics in ICU Ileus: Seen on KUB 09/25, resolved with NG decompression KUB negative on 10/01 # COVID-19 positive??- Recovered. PCR positive on 09/23/2021. Repeat negative x2. No supplemental oxygen requirement. No treatment required # Acute encephalopathy (due to acute illness, ICU care, delirium, and alcohol abuse): ??Resolved -CT head was negative ?? Dispo: referred to rehab ?? Code status - Full Code ?? Family contact - Extended Emergency Contact Information Primary Emergency Contact: Tati Senior Mobile Relation: Daughter Secondary Emergency Contact: Herminia Monsalve Mobile Relation: Mother * Progress Notes - Paola Luevano RN - 10/11/2021 8:31 AM EST Wound Care Consult Visit Date: 10/11/2021?? Patient Name: Rosendo Roach? Date of : 1975 Reason for Consult: Consult for increasing size of midline incision? Wound History: Per documentation, Blue surgery assessed midline with staple removal and wound vac to midline. Wound care defers to Surgical team, but will assess if assistance with vac dressing change. Paola Luevano RN 10/11/2021?? 8:31 AM * Progress Notes - Pam Uriostegui MD - 10/10/2021 5:52 PM EST Subjective Patient is not eating or drinking much per nurse. Will add supplements. I looked at her wound this afternoon and the area in the center where she had the hematoma evacuated is larger than it was previously. I spoke with surgery to see if she would benefit from a wound vac and they came and placed one after we spoke. Patient has a low magnesium level at 1.4. I spoke to her about the need to replace it. The nurse has already tried talking the patient into getting and IV for IV replacement, but the patient doesn't want to be stuck again. Patient is otherwise medically ready for discharge to rehab. Referral has been sent Review of Systems Constitutional: Positive for appetite change. Negative for fatigue and fever. Respiratory: Negative for cough and shortness of breath. Gastrointestinal: Negative for constipation, diarrhea, nausea and vomiting. Objective Last Recorded Vitals Blood pressure 142/86, pulse 107, temperature 36.8 ??C (98.2 ??F), temperature source Oral, resp. rate 16, height 1.626 m (5' 4.02 ), weight 80.2 kg (176 lb 12.9 oz), SpO2 98 %. Physical Exam Constitutional: General: She is not in acute distress. Appearance: Normal appearance. HENT: Head: Normocephalic and atraumatic. Nose: Nose normal. No congestion. Mouth/Throat: Mouth: Mucous membranes are moist. Eyes: General: No scleral icterus. Right eye: No discharge. Left eye: No discharge. Cardiovascular: Rate and Rhythm: Regular rhythm. Tachycardia present. Heart sounds: No murmur heard. Comments: Exam limited by disposable stethoscope Pulmonary: Effort: Pulmonary effort is normal. No respiratory distress. Comments: Exam limited by disposable stethoscope Abdominal: General: Bowel sounds are normal. Palpations: Abdomen is soft. Tenderness: There is abdominal tenderness. There is no guarding or rebound. Comments: Large, open abdominal wound with opening/dehiscence in center and maximilian at either end. Wound is about 7 cm across and looks larger than the previous pictures. There is no erythema or purulent drainage. Wound bed appears clean Musculoskeletal: Right lower leg: No edema. Left lower leg: No edema. Skin: General: Skin is warm and dry. Findings: Lesion present. Neurological: General: No focal deficit present. Mental Status: She is alert and oriented to person, place, and time. Psychiatric: Mood and Affect: Mood normal. Behavior: Behavior normal. Assessment/Plan Principal Problem: Superficial dehiscence of operation wound Active Problems: Sepsis (CMS/HCC) Hypomagnesemia Hypoglycemia Assessment and Plan Rosendo Roach is a 46 y.o. female who was who was undergoing inpatient alcohol detox, but becameacutely ill and was admitted to [facility] on 09/10/2021 with ascending cholangitis, peritonitis, pneumoperitoneum, and a left tubo-ovarian abscess, for which she underwent ex- lap with drainage and washout. She remained intubated after surgery and imaging showed bilateral pneumonia - respiratory PCR was negative for flu and COVID-19. She failed an SBT and, despite, decreased sedation, would not follow commands. ??She was persistently febrile and repeat imaging demonstrated colonwall thickening, persistent pneumonia, pleural effusions and LLL collapse. She was transferred to the ICU here on 09/23/2021, where she completed a course of broad spectrum antibiotics to cover both abdominal infection and pneumonia. She was also incidentally found to be COVID-19 positive on repeat testing, but never required treatment for this. She now has two negative COVID tests, so she is off isolation. Now working towards acute rehab placement. Her ongoing issues include wound care and poor po intake with hypomagnesemia. She is being transferred from Medicine team 10 to medicine team 12 today for ongoing management. Recent sepsis (now resolved) due to ascending cholangitis, peritonitis, pneumoperitoneum, and a left tubo-ovarian abscess with residual abdominal wound recently complicated by dehiscence and hematoma -History: S/p exlap on 09/12 and ICU care/pressors. Ovarian abscess culture grew nicanor glabrata, e. Coli, and enterobacter. S/p meropenem, cefepime, and metronidazole (s/p 10 days of antibiotics). S/p micafungin (stopped 10/02) Trended beta glucan: BDG was reportedly >500 at the OSH, down to 259 here on 09/28 ??-General surgery did washout and hematoma evacuation on 10/07.??They removed the maximilian in the middle of the wound. ??TBD when to remove??the rest of the??abdominal maximilian (will leave in place fornow??since the central part of the wound was pulling apart).??No further bleeding on exam -Wound dehiscence: Now has wound vac in place. Change Friday, friday, friday. -Follow up with [facility] surgeon on discharge. ?? Hypomagnesemia - very low at 1.4 - replace PO as patient not agreeable to IV replacement. - will monitor with labs Alcohol dependence (with history of DTs and withdrawal seizures) -TRACEY consult -patient declined acamprosate or naltrexone when discussed with TRACEY -She said that she was using alcohol to help her sleep, but that the Seroquel is working well for her now -On thiamine and folate ?? Hepatic steatosis (due to alcohol abuse): Encourage sobriety ?? Tobacco dependence: Smoking cessation counseling and NRT -Nicotine replacement prn ?? Hypoglycemia: -Low glucose levels possibly related to poor oral intake -Blood sugars reviewed and remain >70 without additional dextrose. Encourage PO intake. Diet liberalized to improve intake. Nutrition supplements added -Nutrition consult to help with food preferences and nutrition optimization. ?? CHRONIC: Hypertension: Monitor BPs, reintroduce medications as needed Depression and anxiety: Increased Seroquel and resumed Paxil on 10/02 Insomnia: She has a history of chronic use of Ambien (but trying to avoid benzodiazepines); Discussed with Psychiatry on 10/02, increased Seroquel to 100 mg qPM (and can consider increasing further to150 mg): ??Benefit reported on the increased Seroquel dose Class 1 obesity:??Body mass index is 30.3 kg/m??., complicates all aspects of care ?? RESOLVED: Respiratory failure: intubated for surgery at OSH and transferred to ICU Pneumonia: treated with broad spectrum antibiotics in ICU Ileus: Seen on KUB 09/25, resolved with NG decompression KUB negative on 10/01 # COVID-19 positive??- Recovered. PCR positive on 09/23/2021. Repeat negative x2. No supplemental oxygen requirement. No treatment required # Acute encephalopathy (due to acute illness, ICU care, delirium, and alcohol abuse): ??Resolved -CT head was negative Dispo: referred to rehab Code status - Full Code Family contact - Extended Emergency Contact Information Primary Emergency Contact: Tati Senior Mobile Relation: Daughter Secondary Emergency Contact: Herminia Monsalve Mobile Relation: Mother [facility] Pager [phone] * Progress Notes - Jose Cruz Mello MD - 10/10/2021 4:46 PM EST 10/10/21 Rosendo Roach HPI 46 y.o. female with PMHx notable for EtOH with EtOH withdrawal, HTN, depression, CAD who presented to [facility] with hypoxic respiratory distress secondary to COVID- 19 pneumonia. Patient is s/p ex lap with washout of tubo-ovarian abscess 09/12. She has recovered from COVID-19 pneumonia and is now stableon room air. General surgery consulted for wound check given superficial dehiscence. 10/08 - Maximilian removed at bedside and old hematoma washed out/evacuated. No evidence of infection, Fascia probed and is intact. ?? NAEO, afebrile. Patient doing well. Contacted by primary team today, concern for more superficial opening of wound since last assessment by surgery team. Wound non infectious appearing with fascia still intact. A 14 point review of systems was reviewed and is negative except as mentioned in the HPI. Vital signs: Vitals: 10/10/21 1609 BP: 142/86 Pulse: 107 Resp: 16 Temp: 36.8 ??C (98.2 ??F) SpO2: 98% Physical Exam Constitutional: General: She is not in acute distress. Appearance: Normal appearance. She is normal weight. She is not ill-appearing or toxic-appearing. HENT: Head: Normocephalic. Mouth/Throat: Mouth: Mucous membranes are moist. Cardiovascular: Rate and Rhythm: Normal rate. Pulmonary: Effort: Pulmonary effort is normal. Abdominal: General: Abdomen is flat. There is no distension. Palpations: Abdomen is soft. Tenderness: There is no abdominal tenderness. Comments: Superficial dehiscence of midline incision, fascia intact, distal maximilian intact, wound tunnels deep to the subcutaneous disuses distally and minimally poximally Musculoskeletal: General: Normal range of motion. Cervical back: Normal range of motion. Skin: General: Skin is warm and dry. Neurological: General: No focal deficit present. Mental Status: She is alert and oriented to person, place, and time. Mental status is at baseline. Psychiatric: Mood and Affect: Mood normal. Behavior: Behavior normal. Thought Content: Thought content normal. Intake/Output Summary (Last 24 hours) at 10/10/2021 1647 Last data filed at 10/10/2021 1300 Gross per 24 hour Intake 444 ml Output -- Net 444 ml Lines/Drains/Tubes: Patient Lines/Drains/Airways Status Active Airway None Output by Drain (mL) 10/08/21 0700 - 10/08/21185810/08/21 190 - 10/09/21 0659 10/09/21 0700 - 10/09/21 1859 10/09/21 190 - 10/10/21 0659 10/10/21 07 - 10/10/21 1647 Patient has no LDAs of requested type attached. Labs in last 18 hours: CBC WBC 6.92 Hb 8.4 (L) Plt 343 Hct 28.8 (L) ANC 3.27 INR ??, PTT ??, Anti-Xa ?? MCV 109 (H) BMP Na 136 Cl 107 BUN 4 (L) Glu 77 K 4.6 Co2 17 (L) Cr 0.62 Ca 8.2 (L) iCa ?? Mg 1.4 (L), Phos ?? Lactate ?? LFT AST ?? AlkPhos ?? T Prot ?? ALK ?? Bili ?? Alb ?? D.Bili ?? Lab Trends: H/H Results from last 7 days Lab Units 10/10/21 0627 10/08/21 0357 10/05/21 0416 HEMOGLOBIN g/dL 8.4* 7.7* 8.9* HEMATOCRIT % 28.8* 24.9* 28.5* INR Cr Results from last 7 days Lab Units 10/10/21 0627 10/08/21 0357 10/06/21 0428 CREATININE mg/dL 0.62 0.53* 0.62 Medications reviewed. Vital signs reviewed. Labs reviewed. Radiography reviewed. Assessment and Plan: Medical Problems Problem List * (Principal) Sepsis (CMS/HCC) Respiratory failure with hypoxia (CMS/HCC) Superficial dehiscence of operation wound Overview Signed 10/08/2021 10:15 AM by Sonny Jara MD s/p ex-lap with washout of tubo-ovarian abscess at OSH 09/12 10/08 - [place] removed at bedside and old hematoma washed out/evacuated. No evidence of infection, Fascia probed and is intact. Continue WTD dressings BID per primary/nursing Present on Admission: ??? Sepsis (CMS/HCC) Plan: - Wound vac dressing changes per nursing team - Please call our services should you have any concerns or questions. Thank you for giving us opportunity to partake in this patient's care. Jose Cruz Mello MD Cosigned by Mala Mark MD at 10/12/2021 9:55 AM EST Associated attestation - Mala Mark MD - 10/12/2021 9:55 AM EST I saw and evaluated the patient with the resident/fellow. I discussed the case with the resident/fellow and agree with the findings and plan as documented. * Progress Notes - Shantanu Hauser, OT - 10/10/2021 1:54 PM EST Occupational Therapy Re-Assessment Patient Name: Rosendo Roach Today's Date: 10/10/2021 OT Discharge Recommendations: Acute rehab Equipment Recommended: Defer to facility History Rosendo Roach is 46 y.o. female admitted 09/23/2021 for work-up of Sepsis (CMS/HCC). Hospital Course 1. Respiratory failure with hypoxia, unspecified chronicity (CMS/HCC) 2. Encounter for other specified special examinations 3. Altered mental status, unspecified altered mental status type Past Medical History Patient has a past medical history of Alcohol abuse, Alcohol withdrawal delirium (CMS/HCC), Anxiety(03/19/2018), COVID-19 (09/23/2021), Depression, Essential hypertension (03/19/2018), and Insomnia. Past Surgical History Patient has a past surgical history that includes section, low transverse and Exploratory laparotomy (09/12/2021). Precautions None Subjective RN approved and patient agreeable to participate in occupational therapy re-evaluation. Participants in Care Insurance Risk Analyst: Not Applicable Presentation Oxygen Therapy: None (Room air) Lines and Tubes: Intravenous access,Telemetry Pre-Session: Sitting: edge of bed Pre-Session Comments: RN cleared pt for OT treatment session this date. Post-Session: Sitting: edge of bed,RN notified,Lines intact,Call light in reach Home Living/Set-Up Lives With: Alone (Pt has split custody of 2 children but, otherwise, lives alone.) Home Type: House Home Adaptive Equipment: None Home Layout: One level (level entry) Home Living Comments: Per pt, her neighbor can check on her and provide assistance as needed. Prior Level of Function Receives Help From: No assist required prior to admission Level of Mobility: Ambulatory- community Mobility [place]: Independent gait without device ADL Performance: Independent Patient/Family Goals Statement Patient states she wants to feel better Objective Pain Pain Assessment Pain Assessment: 0-10 Pain Score: 8 Pain Type: Acute pain Pain Location: Hip Pain Orientation: Left (recently medicated per patient report) Pain Frequency: Constant/continuous Pain Onset: Ongoing Clinical Progression: Not changed Patient's Stated Pain Goal: No pain Pain Management Interventions: medication (see MAR),pillow support provided,position adjusted,ambulation/increased activity Delirium Screening May Agitation Sedation Scale (RASS): Alert and calm Confusion Assessment Method-ICU (CAM-ICU/PCAM-ICU) Feature 1: Acute Onset or Fluctuating Course: Negative Feature 2: Inattention: Negative Feature 3: Altered Level of Consciousness: Negative Feature 4: Disorganized Thinking: Negative Overall CAM-ICU/PCAM-ICU: Negative Cognition Overall Cognitive Status: Within Functional Limits Arousal/Alertness: Appropriate responses to stimuli Mood/Behavior: Alert Orientation Level: Oriented X4 Single Step Commands: Consistently Multi-Step Commands: Consistently Method of Communication: Verbal Vision - Basic Assessment Current Vision: Intact (with glasses) Right Upper Extremity Examination RUE ROM Assessment RUE Assessment: Exceptions to WFL (shoulder flexion to 60 degrees) Manual Muscle Testing - RUE: (2+/5) Left Upper Extremity Examination LUE ROM Assessment LUE Assessment: Exceptions to WFL (shoulder flexion to 60 degrees) Manual Muscle Testing - LUE: (2+/5) Right Lower Extremity Examination RLE ROM Assessment RLE Assessment: Within Functional Limits Manual Muscle Testing - RLE: Within functional limits Sensation Light Touch: Right Lower Extremity: Intact Left Lower Extremity Examination LLE Assessment: Within Functional Limits Manual Muscle Testing: Within functional limits Sensation Light Touch: Left Lower Extremity: Intact Therapeutic Activity (10 minutes) FUNCTIONAL ENDURANCE/ENERGY FOR TASK Pt engaged in functional endurance task to increase b/l LE strength, cardiovascular and muscular endurance to improve activity tolerance in prep for higher level ADL participation and home management. Transfers Transfer Exam: Sit to stand Level of [place]: Contact guard Physical/Nonphysical Assist: Verbal Cues,1 person + 1 person to manage equipment Assistive Device: Hand held assist Transfer Exam: Stand to Sit Level of [place]: Contact guard Physical/Nonphysical Assist: Verbal Cues,1 person + 1 person to manage equipment,Set-up required Assistive Device: Hand held assist Balance Postural Appearance Posture: Stooped posture,Forward head,Rounded shoulders Static Sitting Balance Static Sitting-Balance Support: Right upper extremity support,Left upper extremity support,Feet supported Static Sitting-Level of Assistance: Standby assist Dynamic Sitting Balance Dynamic Sitting-Balance Support: Feet supported Dynamic Sitting-Balance: Anterior/Posterior weight shifts,Lateral weight shifts,Reaching for objects,Reaching across midline Level of Assistance: Standby assisst Dynamic Sitting - Interventions: Pt required max verbal cues pt was able to sit @ EOB statically & dynamically (see above for assist levels) ~ 5 minutes to engage in ADL task, lower back stretching, postural exercises and functional reaching task to challenge core/trunk strength & stability as well as energy for task in prep for increased higher level ADL independence. Self-Care Interventions Self Care/Home Management (ADLs) Time Entry: 8 Feeding Feeding Level of Assistance: Independent,Setup Feeding Where Assessed: Edge of bed Grooming Grooming Level of Assistance: Contact guard Grooming Where Assessed: Edge of bed Grooming Interventions: to wash face and brush hair UE Dressing UE Dressing Level of Assistance: Minimum assistance UE Dressing Where Assessed: Edge of bed Lower Extremity Dressing Sock Level of Assistance: Setup,Contact guard LE Dressing Where Assessed: Edge of bed Therapeutic Exercise (5 minutes) Pt engaged in postural exercises for 10 reps each including pectoralis stretch, scapular retraction, scapular posterior depression, rib lift unsupported seated reaching task in all planes to improve trunk/core strength, align humeral head in glenohumeral joint, reduce back discomfort and higher level ADL participation in unsupported sitting and shoulder forward flexion, shoulder abduction, shoulder internal & external rotation, elbow flex/ext, forward punches. Pt was only able to recall 4/8exercises. Pt re-educated on exercises patient was unable to recall and exercises written on white board to assist with recollection. Pt verbalized understanding of frequency and duration required toimprove strength and maintain flexibility as well as understanding of importance of self- initiated engagement daily. Standardized Assessments Carlitos Index Feeding: Independent Bathing: Dependent Grooming: Independent face/hair/teeth/shaving (implements provided) Dressing: Needs help but can do about half unaided Bowels: Continent Bladder: Continent Toilet Use: Needs some help but can do some things alone Transfers (Bed to Chair and Back): Minor help (verbal or physical) Mobility (on Level Surfaces): Walks with help or one person (verbal or physical) > 50 yards Stairs: Needs help (verbal, physical, carrying aid) Total Score: 70 Assessment Post re-evaluation patient participated in an additional skilled occupational therapy to engage in cognition inquiry/training/assessment, b/l UE HEP review, ADL retraining including groom, toileting,Upper extremity and Lower extremity dressing and functional endurance training during mobility task. Pt continues to be limited by decreased energy for task, b/l UE & LE strength (from baseline pe r patient report) and balance, but continues to present with improved functional endurance and ADL participation at this time requiring less assist today than on initial evaluation. Therapy will continue to work with patient to assist with progress toward b/l UE strength, mobility and ADL goals. Continue POC OT Findings: Impaired ADL performance,Decreased upper extremity strength,Impaired functional mobility,Impaired balance,Impaired IADL performance,Impaired executive function,Decreased upper extremity range of motion,Impaired cognition,Impaired fine motor control/coordination Evaluation/Treatment Tolerance: Patient limited by fatigue Rehab Potential: Good, to achieve stated therapy goals OT Recommendations Discharge Destination: Acute rehab Discharge Equipment: Defer to facility Plan Planned OT Interventions ADL retraining,IADL retraining,Balance training,Strengthening,Transfer training,Functional mobility OT Frequency 2 - 5 times per week OT Duration 2 weeks OT GOAL DETAILS DATE ASSESSED STATUS PROGRESS OT Goal 1: Patient will complete feeding/grooming with set-up/stand by assist 2/2 sessions in orderto increase upper extremity range of motion OT Goal 1 Established Date: 09/26/21 OT Goal 1 Time Frame: 2 weeks 10/10/21 Goal met partially Continuing progress towards goal,Good progress towards goal OT Goal 2: Patient will transfer from bed to bedside commode with moderate assist x2 2/2 sessions in order to prepare for toileting OT Goal 2 Established Date: 09/26/21 OT Goal 2 Time Frame: 2 weeks 10/10/21 Goal met partially Good progress towards goal,Continuing progress towards goal OT Goal 3: Patient will complete toilet hygiene with min assist x1 2/2 sessions in order to increase upper extremity endurance OT Goal 3 Established Date: 09/26/21 OT Goal 3 Time Frame: 2 weeks 10/10/21 Goal met partially Good progress towards goal,Continuing progress towards goal Written by Shantanu Hauser OT on 10/10/21 at 1:49 PM. * Consults - Quynh Solis RD - 10/10/2021 11:41 AM ESTAssociated Order(s): IP CONSULT TO NUTRITION SERVICES Adult Nutrition Evaluation Note Rosendo Roach 46 y.o. female CSN: [id number] Room/Bed 661/661B Nutrition evaluation type: follow-up Reason for evaluation: Hospital course: 46 year old female who transferred to [facility] 09/23 for failure to wean, persistent fevers and continued acute encephalopathy. The patient was found incidentally COVID-19 positive and transferred to [facility]. With acute hypoxic respiratory failure requiring mechanical ventilation (09/27/21) Pt was extubated 09/26/21. XR abdomen 09/25/21 with findings most suggestive of developing ileus. Improving acute encephalopathy (10/01/21): Ileus- resolved, Hypernatremia improving. Pt transferred to floor from ICU on 09/29 per team. Encephalopathy. 10/10: Pt s/p ex lap with washout of tubo-ovarian abscess on 09/12 - old hematoma evacuated and maximilian removed 1/17. Pending NICHOLE for discharge. Past medical/ surgical history: chronic liver disease, cirrhosis, alcohol use disorder admitted to OSH on 09/10 from a detox center. Imaging showed acute ascending colitis/ peritonitis and pneumoperitoneum s/p ex-lap on 09/12 and a tubo-ovarian abscess was noted. New sepsis 09/[address] concerning for bilateral pneumonia and lower lobe collapse. Started on TPN (unsure etiology), depression, HTN, protein calorie malnutrition, section, anxiety disorder, insomnia Social history: Pt reported that she has been smoking; hx of 32 pack-year smoking history. Current alcohol use of about 21-30 standard drinks per week. Additional comments: 10/10: Visited pt, she reports poor appetite since her covid diagnosis. Does not like her mechanicalsoft diet as she does not like lynsey Pereyra MD okay for advancement to regular diet. Food preferences: turkey sandwiches, jell-o, cereal. Does not like orange juice. Agreeable to Boost Breeze supplements - wild perry only. Does not like traditional Boost supplements. Magic cups in place. No n/v/d/c. Having BMs. Reports her UBW is 135 lbs. Vitals and Basic Assessment: BP: 129/88 Temp: 36.9 ??C (98.4 ??F) Invasive Ventilator Initiated (ETT/Trach Only): Yes Oxygen Therapy: None (Room air) O2 Delivery Method: Nasal cannula Corrie Coma Scale Score: 15 Johan Scale Score: 20 Javier/Cubbin Pressure Risk Score: 46 Last BM Date: 10/06/21 GI Symptoms: Distention Edema: Generalized Skin: Lower right abdomen, mid abdomen incision Allergies: No known food allergies Medications: enoxaparin, 40 mg, Subcutaneous, Daily with dinner ??? famotidine, 20 mg, Oral, BID ??? folic acid, 1 mg, Oral, Daily ??? lisinopril, 10 mg, Oral, Daily ??? magnesium sulfate, 4 g, Intravenous, Once ??? melatonin, 6 mg, Oral, Nightly ??? mineral oil-hydrophilic petrolatum, 1 application, Topical, BID ??? nicotine, 1 patch, Transdermal, Daily ??? PARoxetine, 20 mg, Oral, Daily ??? QUEtiapine, 100 mg, Oral, Nightly ??? thiamine, 100 mg, Oral, Daily Meds were reviewed: Yes Labs: Lab Results Component Value Date GLUCOSE 77 10/10/2021 CALCIUM 8.2 (L) 10/10/2021 NA 136 10/10/2021 K 4.6 10/10/2021 CO2 17 (L) 10/10/2021 CL 107 10/10/2021 BUN 4 (L) 10/10/2021 CREATININE 0.62 10/10/2021 Lab Results Component Value Date WBC 6.92 10/10/2021 HGB 8.4 (L) 10/10/2021 HCT 28.8 (L) 10/10/2021 MCV 109 (H) 10/10/2021 PLT 343 10/10/2021 Lab Results Component Value Date ALBUMIN 2.1 (L) 10/08/2021 Note albumin is a negative acute phase protein and not a good indicator of nutrition status. Lab Results Component Value Date CRP 42.2 (H) 10/10/2021 Lab Results Component Value Date HGBA1C 4.9 09/23/2021 POC glucose: 72-139 mg/dl Anthropometrics: Height: 162.6 cm (5' 4.02 ) Weight: 80.2 kg (176 lb 12.9 oz) BMI (Calculated): 30.33 Weight Evaluation: Obese-Class 1 (BMI 30-34.9) Arthur Body Weight (kg): 54.5 Percent Arthur Body Weight: 153 Adjusted Body Weight (kg): 61.8 Wt Readings from Last 12 Encounters: 10/09/21 80.2 kg (176 lb 12.9 oz) 02/26/21 70.2 kg (154 lb 12.2 oz) -Weight gain of 9;9 Kg in 7 MO. Estimated Needs: Kcal/ K-30 Kcal Provided: 7034-8158 Kcal Needs Based On: Adjusted weight Gm Protein/ Kg : 1.2-1.5 Protein Provided: 74-93 Protein Needs Based On: Adjusted weight Fluid Provided: per MD Current Nutrition Intake: Diet Supplements: Magic Cup Mechanical soft, 2g Na diet Percent Meals Eaten (%): 37% avg x 8 meals Diet Experience and Nutrition History: Diet Education Provided: Will monitor Pertinent home medications: Noted. Nutrition Focused Physical Exam: Physical exam performed on (date): 10/10/21 Temples (muscles): None Clavicle (muscle): None Shoulder (muscle): None Interosseous (muscle): None Calf (muscle): None Orbital (fat): None Triceps (fat): Moderate Assessment of Malnutrition: malnutrition not identified at this time Nutrition Problem: Altered GI function related ileus as evidenced by vomiting, distended abdomen, NPO, now on clears --> mechanical soft diet. Status of Nutrition Diagnosis: Improvement shown Nutrition Interventions and Recommendations: --Liberalizing to regular diet --Adding Boost Breeze daily to supplement --Magic cups TID -- If tf's desired recommend Peptamen 1.5. Begin at low rate of 20 ml/hr. Advance TF slowly as tolerated to eventual goal of 50 ml/hr (1100 ml/day) provides 1650 kcal, 75g protein, 207g CHO, 62g fat,0g fiber, 845 ml water and 110% RDIs vit/min. --Free water flushes per MD/team --MVI with minerals. --Record PO intake. Nutrition Monitoring and Goals: -- Patient will consume >50% of most meals (not met, continue). -- Monitoring nutritional status and interventions, following per department acuity. (ongoing) Acuity Level: [address] * Progress Notes - Debora Ortiz - 10/10/2021 10:05 AM EST Physical Therapy Re-Assessment Patient Name: Rosendo Roach Today's Date: 10/10/2021 PT Discharge Recommendations: Acute rehab Equipment Recommended: Defer to facility History Rosendo Roach is 46 y.o. female admitted 09/23/2021 for work-up of Sepsis (CMS/[facility]). Hospital Course 1. Respiratory failure with hypoxia, unspecified chronicity (CMS/HCC) 2. Encounter for other specified special examinations 3. Altered mental status, unspecified altered mental status type Procedures Past Medical History Patient has a past medical history of Alcohol abuse, Alcohol withdrawal delirium (CMS/HCC), Anxiety(03/19/2018), COVID-19 (09/23/2021), Depression, Essential hypertension (03/19/2018), and Insomnia. Past Surgical History Patient has a past surgical history that includes section, low transverse and Exploratory laparotomy (09/12/2021). Precautions Medical Precautions: (COVID Isolation; General Mobility Guidelines) Subjective Pt seated on edge of bed, in pain, but agreeable to PT re-assessment. Participants in Care Family/Caregiver Present: No Insurance Risk Analyst: Not Applicable Presentation Oxygen Therapy: None (Room air) Lines and Tubes: Intravenous access,Telemetry Pre-Session: Sitting: edge of bed Pre-Session Comments: RN cleared pt for OT treatment session this date. Post-Session: Sitting: edge of bed,RN notified,Lines intact,Call light in reach Home Living/Set-Up Lives With: Alone (Pt has split custody of 2 children but, otherwise, lives alone.) Home Type: House Home Adaptive Equipment: None Home Layout: One level (level entry) Home Living Comments: Per pt, her neighbor can check on her and provide assistance as needed. Prior Level of Function Receives Help From: No assist required prior to admission Level of Mobility: Ambulatory- community Mobility [place]: Independent gait without device ADL Performance: Independent Patient/Family Goals Objective Pain Pain Assessment Pain Type: Acute pain Pain Location: Hip Pain Orientation: Left Pain Descriptors: Discomfort Pain Frequency: Constant/continuous Pain Onset: Ongoing Clinical Progression: Not changed Patient's Stated Pain Goal: No pain Pain Management Interventions: medication (see MAR),pillow support provided,position adjusted,ambulation/increased activity Delirium Screening May Agitation Sedation Scale (RASS): Alert and calm Confusion Assessment Method-ICU (CAM-ICU/PCAM-ICU) Feature 1: Acute Onset or Fluctuating Course: Negative Feature 2: Inattention: Negative Feature 3: Altered Level of Consciousness: Negative Feature 4: Disorganized Thinking: Negative Overall CAM-ICU/PCAM-ICU: Negative Cognition Overall Cognitive Status: Within Functional Limits Arousal/Alertness: Appropriate responses to stimuli Mood/Behavior: Alert Orientation Level: Oriented X4 Single Step Commands: Consistently Multi-Step Commands: Consistently Method of Communication: Verbal Vision - Basic Assessment Current Vision: Intact (with glasses) Right Upper Extremity Examination RUE ROM Assessment RUE Assessment: Exceptions to WFL (shoulder flexion to 60 degrees) Manual Muscle Testing - RUE: (2+/5) Left Upper Extremity Examination LUE ROM Assessment LUE Assessment: Exceptions to WFL (shoulder flexion to 60 degrees) Manual Muscle Testing - LUE: (2+/5) Right Lower Extremity Examination RLE ROM Assessment RLE Assessment: Within Functional Limits Manual Muscle Testing - RLE: Within functional limits Left Lower Extremity Examination LLE Assessment: Within Functional Limits Manual Muscle Testing: Within functional limits Transfers Transfer Exam: Sit to stand Level of [place]: Contact guard Physical/Nonphysical Assist: Verbal Cues,1 person + 1 person to manage equipment Assistive Device: Hand held assist Transfer Exam: Stand to Sit Level of [place]: Contact guard Physical/Nonphysical Assist: Verbal Cues,1 person + 1 person to manage equipment,Set-up required Assistive Device: Hand held assist Ambulation Device: Hand held assist Assistance: Contact guard assist Distance : 210ft Ambulation Comments: Decreased step length and gait speed Balance Postural Appearance Posture: Stooped posture,Forward head,Rounded shoulders Static Sitting Balance Static Sitting-Balance Support: Right upper extremity support,Left upper extremity support,Feet supported Static Sitting-Level of Assistance: Standby assist Dynamic Sitting Balance Dynamic Sitting-Balance Support: Feet supported Dynamic Sitting-Balance: Anterior/Posterior weight shifts,Lateral weight shifts,Reaching for objects,Reaching across midline Level of Assistance: Standby assisst Dynamic Sitting - Interventions: Pt required max verbal cues Therapeutic Activity (15 minutes) Pt. performed functional mobility activities including sit<>stand transfer and static/dynamicsitting and standing balance activities to increase independence and decrease fall risk. Pt. ambulated 210ft to meet ambulation goal and increase home/community independence. Therapeutic Exercise (8 minutes) Seated on edge of bed, pt performed 1 sit<>stand to increase gross LE strength, but had increased abdominal pain. Performed LAQ bilaterally x10 with focus on squeeze at top. Performed hip adduction with pillow between legs x5 with 3sec hold. Educated on performing LE exercises 3x/day. Mobility CARE Tool Performance MOBILITY CARE ITEMS CARE SCORE Roll Left and Right 5 Sit to Lying 5 Lying to Sitting on Side of Bed 5 Sit to Stand 4 Chair/Gps-os-Jwobb Transfer 4 Toilet Transfer 3 Car Transfer 10 Walk 10 Feet 4 Walk 50 Feet with Two Turns 4 Walk 150 Feet 4 Walking 10 Feet of Uneven Surfaces 10 1 Step (Curb) 4 4 Steps 10 12 Steps 10 Picking up Object 88 Wheel 50 Feet with Two Turns 9 Wheel 150 Feet 9 CARE Tool Performance Score Adams Score Assist Level Description 6 Independent Patient completes the activity by him/herself with no assistance from a helper. 5 Set-up or Clean-up Assistance [place] sets up or cleans up; patient completes activity. [place] assists only prior to or following the activity. 4 Supervision or touching assistance [place] provides verbal cues and/or touching/steadying and/or contact guard assistance as patient completes activity. Assistance may be provided throughout the activity or intermittently. 3 Partial/Moderate Assistance [place] does LESS THAN HALF the effort. [place] lifts, holds or supports trunk or limbs, but provides less than half the effort. 2 Substantial/Maximal Assistance [place] does MORE THAN HALF the effort. [place] lifts or holds trunkor limbs and provides more than half the effort. 1 Dependent [place] does ALL of the effort. Patient does none of the effort to complete the activity. Or, the assistance of 2 or more helpers is required for the patient to complete the activity. Activity Not Attempted Values 7 Patient refused. 9 Not applicable - Not attempted and the patient did not perform this activity prior to the currentillness, exacerbation, or injury. 10 Not attempted due to environmental limitations (e.g., lack of equipment, weather constraints) 88 Not attempted due to medical condition or safety concerns Standardized Assessments Standardized Assessments Standardized Assessments: [facility] 6-Clicks Mobility Assessment [facility] 6-Clicks Mobility Assessment Difficulty patient has turning over in bed (including adjusting bedclothes, sheets, and blankets)?:A little Difficulty patient has sitting down on and standing up from a chair with arms (wheelchair, bedside commode, etc.)?: A little Difficulty patient has moving from lying on back to sitting on the side of the bed?: A little How much help does the patient need moving to and from a bed to a chair (including a wheelchair)?: A little How much help does the patient need to walk in hospital room?: A little How much help does the patient need climbing 3-5 steps with a railing?: A lot [facility] 6-Clicks Mobility Assessment Total : 17 Standardized Assessments Standardized Assessments Standardized Assessments: [facility] 6-Clicks Mobility Assessment [facility] 6-Clicks Mobility Assessment Difficulty patient has turning over in bed (including adjusting bedclothes, sheets, and blankets)?:A little Difficulty patient has sitting down on and standing up from a chair with arms (wheelchair, bedside commode, etc.)?: A little Difficulty patient has moving from lying on back to sitting on the side of the bed?: A little How much help does the patient need moving to and from a bed to a chair (including a wheelchair)?: A little How much help does the patient need to walk in hospital room?: A little How much help does the patient need climbing 3-5 steps with a railing?: A lot [facility] 6-Clicks Mobility Assessment Total : 17 Assessment Pt participated in PT re-assessment and exhibited improvements in transfers, ambulation, and balance compared to evaluation. However, pt continues to have impaired functional mobility, requiring CGA for sit<>stand transfer, ambulation, and static/dynamic sitting and standing balance. Pt wouldbenefit skilled PT services to improve the impairments listed below. Impairments: Decreased endurance, ventilation, and/or gas exchange,Impaired functional mobility/transfers,Decreased strength,Impaired gait dynamics/performance,Impaired balance,Decreased range of motion Activity Limitations: Inability to ambulate community distances,Inability to ambulate independently Participation Restrictions: Self-care,Home management,Community leisure Activity Tolerance: Tolerates 30 min activity with multiple rests Evaluation/Treatment Tolerance: Patient limited by pain Rehab Potential: Good, to achieve stated therapy goals PT Recommendations Discharge Destination: Acute rehab Discharge Equipment: Defer to facility Plan Planned PT Interventions Balance training,Bed mobility training,Gait training,Motor coordination training,Transfer training,Postural re-education,Neuromuscular re- education,Strengthening,Functional Mobility PT Frequency 2 - 5 times per week PT Duration 2 weeks Goals PT GOAL DETAILS DATE ASSESSED STATUS PROGRESS PT Goal 1: Pt will maintain static sitting balance at EOB with CGA x10 minutes in preparation for transfers. PT Goal 1 Established Date: 09/26/21 PT Goal 1 Time Frame: 2 weeks 10/10/21 Goal met Continuing progress towards goal,Progress slower than expected PT Goal 2: Pt will complete supine<>sit independently in order to get in/out of bed. PT Goal 2 Established Date: 10/04/21 PT Goal 2 Time Frame: 2 weeks 10/10/21 Goal partially met Good progress towards goal PT Goal 3: Pt will complete sit<>stand and bed<>chair using least restrictive device with CGA in order to increase safety with transfers. PT Goal 3 Established Date: 09/26/21 PT Goal 3 Time Frame: 2 weeks 10/10/21 Goal met Continuing progress towards goal,Progress slower than expected PT Goal 4: Pt will ambulate 100 feet using least restrictive device with min assist in order to perform mobility with decreased risk of falls. PT Goal 4 Established Date: 09/26/21 PT Goal 4 Time Frame: 2 weeks 10/10/21 Goal met Continuing progress towards goal,Progress slower than expected PT Goal 5: Pt/family will be independent with HEP and d/c recommendations. PT Goal 5 Established Date: 09/26/21 PT Goal 5 Time Frame: 2 weeks 10/10/21 Goal ongoing Continuing progress towards goal PT Goal 6: Pt will ambulate 350 feet using least restrictive device IND in order to perform mobility with decreased risk of falls. PT Goal 6 Established Date: 10/10/21 PT Goal 6 Time Frame: 2 weeks 10/24/21 PT Goal 7: Pt will perform dynamic sitting balance activities at EOB IND to reduce fall risk and increase home independence. PT Goal 7 Established Date: 10/10/21 PT Goal 7 Time Frame: 2 weeks 10/24/21 Written by Debora Ortiz on 10/10/21 at 12:37 PM. Cosigned by Alexandru Sutton PT at 10/10/2021 1:34 PM EST Associated attestation - Alexandru Sutton - 10/10/2021 1:34 PM EST As the supervising therapist, I have reviewed and agree with this document written by the student physical therapist for this patient on this date/time. * Nursing Note - Analilia Bassett RN - 10/10/2021 9:58 AM EST Patient had magnesium 4g order per IV, patient currently has no IV access. Approached the patient to ask if an IV could be placed, and at this she is refusing to have an IV placed at this time. Attending Pam Uriostegui was notified with no new orders at this time. * Progress Notes - Pam Uriostegui MD - 10/09/2021 10:29 AM EST Subjective Patient had an uneventful night. She reports her mobility is pretty good except she does have some trouble sitting up because of her healing abdominal wound. She is supposed to come out of precautions today and is excited to see her family that she hasn't been able to see in a while. Review of Systems Constitutional: Positive for fatigue. Negative for fever. Respiratory: Negative for cough and shortness of breath. Gastrointestinal: Negative for constipation, diarrhea, nausea and vomiting. Objective Last Recorded Vitals Blood pressure 137/87, pulse 102, temperature 36.5 ??C (97.7 ??F), temperature source Oral, resp. rate 19, height 1.626 m (5' 4.02 ), weight 80.2 kg (176 lb 12.9 oz), SpO2 96 %. Physical Exam Constitutional: General: She is not in acute distress. Appearance: Normal appearance. HENT: Head: Normocephalic and atraumatic. Nose: Nose normal. No congestion. Mouth/Throat: Mouth: Mucous membranes are moist. Eyes: General: No scleral icterus. Right eye: No discharge. Left eye: No discharge. Cardiovascular: Rate and Rhythm: Regular rhythm. Tachycardia present. Heart sounds: No murmur heard. Comments: Exam limited by disposable stethoscope Pulmonary: Effort: Pulmonary effort is normal. No respiratory distress. Comments: Exam limited by disposable stethoscope Abdominal: General: Bowel sounds are normal. Palpations: Abdomen is soft. Tenderness: There is abdominal tenderness. There is no guarding or rebound. Comments: Abdominal binder and dressing in place over abd wound. Dressing is clean dry and intact under binder. Abdomen not distended. Tender due to healing abdominal wound. Musculoskeletal: Right lower leg: No edema. Left lower leg: No edema. Skin: General: Skin is warm and dry. Neurological: Mental Status: She is alert. Assessment/Plan Principal Problem: Sepsis (CMS/HCC) Active Problems: Respiratory failure with hypoxia (CMS/HCC) Superficial dehiscence of operation wound Assessment and Plan Rosendo Roach is a 46 y.o. female who was undergoing inpatient alcohol detox, when she became acutely ill with ascending cholangitis, peritonitis, pneumoperitoneum, and a left tubo-ovarian abscess, requiring ICU care, surgery and broad spectrum antibiotics. She was also incidentally found to be COVID-19 positive: She did not require pharmacologic treatment, and now has 2 negative tests, and can come off isolation. Sepsis (CMS/HCC) due to ascending cholangitis, peritonitis, pneumoperitoneum, and a left tubo-ovarian abscess S/p exlap on 09/12 and ICU care/pressors Ovarian abscess culture grew nicanor glabrata, e. Coli, and enterobacter S/p meropenem, cefepime, and metronidazole (s/p 10 days of antibiotics) S/p micafungin (stopped 10/02) Trended beta glucan: BDG was reportedly >500 at the OSH, down to 259 here on 09/28 ??Completed antibiotics Surgery did washout and hematoma evacuation on 10/07. They removed the maximilian in the middle of the wound. TBD when to remove the rest of the abdominal maximilian (will leave in place for now since the central part of the wound was pulling apart). Continue wet to dry dressings. Follow up with [facility] surgeon. COVID-19 positive - Recovered PCR positive on 09/23/2021. Repeat negative x2. Will stop precautions once room cleaned CT chest showed bilateral GGO, LLL atelectasis, and bilateral effusions No supplemental oxygen requirement. No treatment required Hematoma at laparotomy site: Measured 3x4 cm. S/p evacuation on 10/07. Continue to monitor. ?? Acute encephalopathy (due to acute illness, ICU care, delirium, and alcohol abuse): Resolved CT head was negative S/p thiamine IV, continued on PO supplement On Seroquel (increased 09/29); Patient says she was previously on 50 mg/100 mg ?? Alcohol dependence (with history of DTs and withdrawal seizures) TRACEY consult Consider acamprosate and/or naltrexone (however, patient declined these when discussed with TRACEY) She said that she was using alcohol to help her sleep, but that the Seroquel is working well for her now On thiamine and folate Hepatic steatosis/cirrhosis (due to alcohol abuse): Encourage sobriety ?? Tobacco dependence: Smoking cessation counseling and NRT Nicotine replacement prn ?? Dysphagia: mechanical diet. Patient said that one of her dentures was lost while undergoing surgery at the other hospital. ?? Hypoglycemia: Low glucose levels possibly related to poor oral intake Blood sugars reviewed and remain >70 without additional dextrose. Encourage PO intake. Nutrition consult to help with food preferences and nutrition optimization. CHRONIC: Hypertension: Monitor BPs, reintroduce medications as needed Depression and anxiety: Increased Seroquel and resumed Paxil on 10/02 Insomnia: She has a history of chronic use of Ambien (but trying to avoid benzodiazepines); Discussed with Psychiatry on 10/02, increased Seroquel to 100 mg qPM (and can consider increasing further to150 mg): Benefit reported on the increased Seroquel dose Class 1 obesity: Body mass index is 30.3 kg/m??., complicates all aspects of care ?? RESOLVED: Ileus: Seen on KUB 09/25, resolved with NG decompression KUB negative on 10/01 Code status - Full Code Family contact - Extended Emergency Contact Information Primary Emergency Contact: Tati Senior Mobile Relation: Daughter Secondary Emergency Contact: Herminia Monsalve Mobile Relation: Mother [facility] Pager [phone] * Progress Notes - Ilene Pinto - 10/09/2021 9:29 AM EST Case Management Adult Progress Note Rosendo Roach 46 y.o. female CSN: [id number] Admission: 09/23/2021 4:37 PM Primary Problem: Sepsis (CMS/HCC) Anticipated Discharge Date: TBD Discussed with multidisciplianry team, per attending physician dr. Uriostegui pt is not medically ready to discharge. Pt currently has acute rehab recs and has been referred to [facility] and [facility]- per pt's request. SW will continue to follow and assist with discharge plan and as needed. Ilene Pinto * Nursing Note - Bob Key - 10/09/2021 9:23 AM EST Patient complaints of pain at site of LFA 20g. IV removed at this time per patient request. Patientrefusing to have new IV stuck. notified. * Nursing Note - Bob Key - 10/09/2021 7:15 AM EST Bedside shift report completed at this time. Patient in bed AOX4 at this time. Patient denies SOA and pain at this time. Patient updated POC at this time with no questions or concerns. Abdominal binder noted in place at this time. Abdominal dressing CDI. Call light within reach and encouraged to call for assistance. No needs at this time. Will continue rounds. * Progress Notes - Kemar Healy MD - 10/08/2021 2:32 PM EST Images from the original note were not included. Subjective The patient says that she feels better. Surgery removed the maximilian at the central portion of her abdominal wound, where the wound was and pulling on the maximilian. They performed a washout and hematoma evacuation. They recommend leaving the wound dressed with wet to dry dressings. The patient notes improved abdominal pain, though she still has some pain with movement. She is trying to eat some, but notes that she has not received any of the Magic cup that we had ordered. Review of Systems She denies fevers, chills, or shortness of breath She has just a little bit of coughing Objective Physical Exam Vitals and nursing note reviewed. Constitutional: General: She is not in acute distress. Appearance: Normal appearance. Comments: Lying in bed, in no acute distress HENT: Head: Normocephalic and atraumatic. Nose: Nose normal. No congestion or rhinorrhea. Eyes: General: No scleral icterus. Conjunctiva/sclera: Conjunctivae normal. Pupils: Pupils are equal, round, and reactive to light. Cardiovascular: Rate and Rhythm: Normal rate and regular rhythm. Pulses: Normal pulses. Heart sounds: Normal heart sounds. No murmur heard. No friction rub. No gallop. Pulmonary: Effort: Pulmonary effort is normal. Breath sounds: Normal breath sounds. Abdominal: General: Bowel sounds are normal. Palpations: Abdomen is soft. Tenderness: There is no abdominal tenderness. There is no rebound. Comments: Abdominal binder Musculoskeletal: General: No swelling. Right lower leg: No edema. Left lower leg: No edema. Skin: Coloration: Skin is not jaundiced. Findings: No bruising, erythema or rash. Comments: Abdominal surgical wound: The maximilian were removed where the wound was pulling open in the middle, though there are still maximilian in the superior and inferior parts of the wound Neurological: General: No focal deficit present. Mental Status: She is alert. Mental status is at baseline. Psychiatric: Mood and Affect: Mood normal. Behavior: Behavior normal. Thought Content: Thought content normal. Last Recorded Vitals Vitals: 10/07/21 2100 10/08/21 0237 10/08/21 0700 10/08/21 1100 BP: (!) 169/98 122/81 140/85 142/86 BP Location: Left arm Left arm Left arm Left arm Patient Position: Sitting Lying Lying Lying Pulse: 108 108 103 105 Resp: 17 15 18 16 Temp: 36.8 ??C (98.3 ??F) 36.8 ??C (98.2 ??F) 36.9 ??C (98.4 ??F) 37 ??C (98.6 ??F) TempSrc: Axillary Axillary SpO2: 98% 92% 91% 95% Weight: Height: No intake or output data in the 24 hours ending 10/08/21 1438 Admission weight: Weight: 60 kg (132 lb 4.4 oz) Assessment/Plan Assessment and plan: Rosendo Roach is a 46 y.o. female who was undergoing inpatient alcohol detox, when she became acutely ill with ascending cholangitis, peritonitis, pneumoperitoneum, and a left tubo-ovarian abscess, requiring ICU care, surgery and broad spectrum antibiotics. She was also incidentally found to be COVID-19 positive: She did not require pharmacologic treatment, and now has 2 negative tests, and can come off isolation. Principal problem: Sepsis (CMS/HCC) Due to ascending cholangitis, peritonitis, pneumoperitoneum, and a left tubo- ovarian abscess S/p exlap on 09/12 S/p ICU care/pressors Ovarian abscess culture grew nicanor glabrata, e. Coli, and enterobacter S/p meropenem, cefepime, and metronidazole (s/p 10 days of antibiotics) S/p micafungin (stopped 10/02) Trended beta glucan: BDG was reportedly >500 at the OSH, down to 259 here on 09/28 ?? Today's status: Done with antibiotics. Surgery did a washout and hematoma evacuation last night.They removed the maximilian in the middle of the wound. TBD when to remove the rest of the abdominal maximilian (will leave in place for now since the central part of the wound was pulling apart). Continuewet to dry dressings. Follow up with [facility] surgeon. Principal Problem: Sepsis (CMS/HCC) Active Problems: Respiratory failure with hypoxia (CMS/HCC) Superficial dehiscence of operation wound COVID-19 positive - Recovered PCR positive on 09/23/2021 CT chest showed bilateral GGO, LLL atelectasis, and bilateral effusions Would be cautious with addition of steroids due to recent septic shock, abdominal surgery, and fungal infection Monitor respiratory status closely ?? Today's status: Satting between 92-98 % on room air. CRP improving overall. Down to 36 today. Noneed for dexamethasone at present. ?? Repeat COVID swabs negative on 10/06 and 10/07. Left message with IPAC to get her off of isolation.. Lab Results Component Value Date CRP 36.0 (H) 10/08/2021 CRP 54.3 (H) 10/05/2021 CRP 53.0 (H) 10/03/2021 XDP 5.50 (H) 10/05/2021 XDP 4.85 (H) 10/03/2021 Hematoma at laparotomy site: Measures 3x4 cm. S/p evacuation on 10/07. Continue to monitor. Acute encephalopathy (due to acute illness, ICU care, delirium, and alcohol abuse): Resolved CT head was negative S/p thiamine IV, continued on PO supplement On Seroquel (increased 09/29); Patient says she was previously on 50 mg/100 mg ?? Today's status: Has resolved. No further report of hallucinations. 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 Increased her nicotine patch to help reduce cravings. Dysphagia: Advanced to a mechanical diet. Patient said that one of her dentures was lost while undergoing surgery at the other hospital. Hypokalemia: Continue to trend and replete as needed. Lab Results Component Value Date K 3.6 (L) 10/08/2021 Today's status: Potassium 3.6, repleted Hypomagnesemia: Trend and replete as needed. Lab Results Component Value Date MG 1.4 (L) 10/08/2021 MG 1.8 (L) 10/06/2021 Today's status: Magnesium 1.4, repleted IV Hypoglycemia: Low glucose levels possibly related to poor oral intake On hypoglycemia correction orders, resumed D5 infusion, encouraging better oral intake, monitoring glucose, and will wean the D5 as able Lab Results Component Value Date HGBA1C 4.9 09/23/2021 Lab Results Component Value Date PGLU 94 10/08/2021 PGLU 100 (H) 10/08/2021 PGLU 94 10/07/2021 PGLU 81 10/07/2021 PGLU 102 (H) 10/07/2021 Today's status: Oral is still limited due to dislike of hospital food. Trying addition of Magic Cup- but has not been delivered despite order. Glucose levels slightly better. Try to decrease the rate on the D5 infusion as able. CHRONIC: Hypertension: Monitor BPs, reintroduce medications as needed Depression and anxiety: Increased Seroquel and resumed Paxil on 10/02 Insomnia: She has a history of chronic use of Ambien (but trying to avoid benzodiazepines); Discussed with Psychiatry on 10/02, increased Seroquel to 100 mg qPM (and can consider increasing further to150 mg): Benefit reported on the increased Seroquel dose Class 1 obesity: Body mass index is 30.3 kg/m??., complicates all aspects of care RESOLVED: Ileus: Seen on KUB 09/25, resolved with NG decompression KUB negative on 10/01 Medications: Scheduled: enoxaparin, 40 mg, Subcutaneous, Daily with dinner famotidine, 20 mg, Oral, BID folic acid, 1 mg, Oral, Daily lisinopril, 10 mg, Oral, Daily melatonin, 6 mg, Oral, Nightly mineral oil-hydrophilic petrolatum, 1 application, Topical, BID nicotine, 1 patch, Transdermal, Daily PARoxetine, 20 mg, Oral, Daily QUEtiapine, 100 mg, Oral, Nightly thiamine, 100 mg, Oral, Daily Continuous: dextrose, 30 mL/hr, Last Rate: 30 mL/hr (10/06/21 1153) As needed: acetaminophen, 650 mg, q4h PRN alteplase, 2 mg, PRN calcium carbonate, 500 mg, 4x daily PRN dextrose, 12.5 g, q15 min PRN Or dextrose 10 %, 12.5 g, q15 min PRN Or glucose, 15 g, q15 min PRN dextrose, 25 g, q15 min PRN Or dextrose 10 %, 25 g, q15 min PRN Or glucose, 30 g, q15 min PRN glucagon (human recombinant), 1 mg, q15 min PRN glucose, 15 g, Once PRN ondansetron, 4 mg, q6h PRN sodium chloride, 3 mL, PRN traMADol, 50 mg, q6h PRN Labs (in last 24 hours): CBC: Lab Results Component Value Date WBC 6.83 10/08/2021 HGB 7.7 (L) 10/08/2021 HCT 24.9 (L) 10/08/2021 PLT 410 (H) 10/08/2021 MCV 105 (H) 10/08/2021 MCH 32.4 (H) 10/08/2021 MCHC 30.9 10/08/2021 RDW 20.2 (H) 10/08/2021 NRBC 0.0 10/08/2021 Differential: Lab Results Component Value Date WBC 6.83 10/08/2021 NEUTOPHILPCT 48.0 10/08/2021 LYMPHOPCT 31.0 10/08/2021 MONOPCT 15.0 10/08/2021 EOSPCT 4.0 10/08/2021 NEUTROABS 3.35 10/08/2021 Coagulation: No results found for: INR, PT, PTT, CLFGN Renal: Lab Results Component Value Date NA 137 10/08/2021 K 3.6 (L) 10/08/2021 CL 105 10/08/2021 CO2 22 10/08/2021 BUN 3 (L) 10/08/2021 CREATININE 0.53 (L) 10/08/2021 GLUCOSE 77 10/08/2021 CALCIUM 8.3 (L) 10/08/2021 MG 1.4 (L) 10/08/2021 PHOS 5.0 (H) 10/08/2021 Liver: No results found for: AST, ALT, ALPHO, BILITOT, BILIDIR Glucose: Lab Results Component Value Date PGLU 94 10/08/2021 PGLU 100 (H) 10/08/2021 PGLU 94 10/07/2021 PGLU 81 10/07/2021 Lab Results Component Value Date HGBA1C 4.9 09/23/2021 Diet Adult diet Diet texture: Mechanical soft; Sodium restriction: 2,000 mg Na DVT prophylaxis Lovenox prophylaxis during admission Anticipated discharge to Acute rehab Patient requested [facility] (daughter is director of therapy department), but this is not an acute rehab Family would prefer for her to go to [facility] Anticipated discharge needs Ready for rehab if eating enough to come off D5 Continue wound care Follow up PCP Alcohol treatment Liver clinic Surgery at [facility] No future appointments. Code status Full Code Family contact Extended Emergency Contact Information Primary Emergency Contact: Tati Senior Mobile Relation: Daughter Secondary Emergency Contact: Herminia Monsalve Mobile Relation: Mother COVID status Positive on 09/23/2021 Now negative on 10/06 and 10/07, can come off isolation once EVS clean done and isolation removed by IPAC (left message) Kemar Healy MD Department of Internal Medicine Division of Hospital Medicine 10/08/2021 * Progress Notes - Sonny Jara MD - 10/08/2021 10:09 AM EST 10/08/21 Rosendo Roach HPI 46 y.o. female with PMHx notable for EtOH with EtOH withdrawal, HTN, depression, CAD who presented to [facility] with hypoxic respiratory distress secondary to COVID- 19 pneumonia. Patient is s/p ex lap with washout of tubo-ovarian abscess 09/12. She has recovered from COVID-19 pneumonia and is now stableon room air. General surgery consulted for wound check given superficial dehiscence. 10/08 - Maximilian removed at bedside and old hematoma washed out/evacuated. No evidence of infection, Fascia probed and is intact. NAEON. Patient doing well. Wound dressing changed, wound clean with fascia intact. Edited by: Sonny Jara MD at 10/08/2021 0742 A 14 point review of systems was reviewed and is negative except as mentioned in the HPI. Vital signs: Vitals: 10/08/21 0700 BP: 140/85 Pulse: 103 Resp: 18 Temp: 36.9 ??C (98.4 ??F) SpO2: 91% Physical Exam Physical Exam GEN: no apparent distress, well nourished female HENT: atraumatic, normocephalic EYES: no scleral icterus, no visible conjunctival hemorrhage RESP: no respiratory distress, symmetric chest rise CV: appears well perfused, normal rate ABD: midline laparotomy with several maximilian removed, wound clean with fascia intact, dressed with WTD dressing MSK/EXT: no apparent deformities, strength/tone normal : deferred NEURO: alert and oriented, no focal CN deficits PSYCH: appropriate affect, mood congruent, interactive No intake or output data in the 24 hours ending 10/08/21 1015 Lines/Drains/Tubes: Patient Lines/Drains/Airways Status Active Airway None Output by Drain (mL) 10/06/21 07 - 10/06/21 1859 10/06/21 190 - 10/07/21 0659 10/07/21 07 - 10/07/21 1859 10/07/21 1900 - 10/08/21 0659 10/08/21 0700 - 10/08/21 1015 Patient has no LDAs of requested type attached. Labs in last 18 hours: CBC WBC 6.83 Hb 7.7 (L) Plt 410 (H) Hct 24.9 (L) ANC 3.35 INR ??, PTT ??, Anti-Xa ?? MCV 105 (H) BMP Na 137 Cl 105 BUN 3 (L) Glu 77 K 3.6 (L) Co2 22 Cr 0.53 (L) Ca 8.3 (L) iCa ?? Mg 1.4 (L), Phos 5.0 (H) Lactate ?? LFT AST ?? AlkPhos ?? T Prot ?? ALK ?? Bili ?? Alb ?? D.Bili ?? Lab Trends: H/H Results from last 7 days Lab Units 10/08/21 0357 10/05/21 0416 10/03/21 0308 HEMOGLOBIN g/dL 7.7* 8.9* 7.7* HEMATOCRIT % 24.9* 28.5* 25.1* INR Cr Results from last 7 days Lab Units 10/08/21 0357 10/06/21 0428 10/05/21 0416 CREATININE mg/dL 0.53* 0.62 0.64 Medications reviewed. Vital signs reviewed. Labs reviewed. Radiography reviewed. Assessment and Plan: Medical Problems Problem List * (Principal) Sepsis (CMS/HCC) Respiratory failure with hypoxia (CMS/HCC) Superficial dehiscence of operation wound Overview Signed 10/08/2021 10:15 AM by Sonny Jara MD s/p ex-lap with washout of tubo-ovarian abscess at OSH 09/12 10/08 - [place] removed at bedside and old hematoma washed out/evacuated. No evidence of infection, Fascia probed and is intact. Continue WTD dressings BID per primary/nursing Present on Admission: Sepsis (CMS/HCC) Plan: - BID WTD dressing changes - Please call our services should you have any concerns or questions. Thank you for giving us opportunity to partake in this patient's care. Sonny Jara MD Cosigned by Mala Mark MD at 10/08/2021 10:40 AM EST Associated attestation - Mala Mark MD - 10/08/2021 10:40 AM EST I saw and evaluated the patient with the resident/fellow. I discussed the case with the resident/fellow and agree with the findings and plan as documented. Hematoma evacuated. Half the maximilian removed. Pack wound BID. Follow up with operative surgeon after discharge. * Consults - Jeffrey Nuñez MD - 10/08/2021 1:54 AM ESTAssociated Order(s): Inpatient consult to Emergency General Surgery Images from the original note were not included. [facility] Department of Surgery Division of Acute Care / Emergency General Surgery History & Physical Note Reason for Consult: Wound Evaluation Requesting Service: Hospital Medicine Consult Date and Time: 10/08/2021 17:39 Inpatient consult to Emergency General Surgery Consult performed by: Jeffrey Nuñez MD Consult ordered by: Kemar Healy MD Subjective History of Present Illness: Chief Complaint: Wanting to go back to sleep Rosendo Roach is a 46 y.o. female with PMHx significant for EtOH abuse, depression, HTN, PARAG, EtOH withdrawl who presented to the [facility] on 09/23/2021 with hypoxic respiratory distress. . The patient was admitted to an inpatient facility undergoing alcohol detoxification when she began to have altered mental status and was transferred to [facility] for evaluation onSeptember 10. The patient was initially treated for EtOH withdraw with DTs, and then when she failed to improve infectious etiology was investigated. The patient had a CT scan which demonstrated peritonitis and pneumoperitoneum. She underwent exploratory laparotomy on September 12 where a left tubal ovarian abscess was noted, evacuated and washed out. Post operatively the patient had acute hypoxic respiratory failure and remained intubated. She developed subsequent septic shock. She was transferred to [facility] on 09/23 for higher level of care and management of respiratory failure.Good upon transfer to [facility] she was found to be COVID-19 positive, and has since recovered from COVID pneumonia. The patient is not extubated, stable on room air, and recovering well from sepsis. General surgery consulted today to evaluate midline laparotomy wound as it appears to have superficial dehiscence. Upon evaluation patient states that she is tired as is late at night, and denies abdominal pain. Midline wound found to have superficial dehiscence with underlying hematoma, this was washed out and evacuated at bedside. Review of Systems: A 14 point review of systems was reviewed and is negative except as mentioned inthe HPI. History Obtained From: Chart Records/OSH Records Past Medical History: Past Medical History: Diagnosis Date ??? Alcohol abuse ??? Alcohol withdrawal delirium (CMS/HCC) ??? Anxiety 03/19/2018 ??? Depression ??? Essential hypertension 03/19/2018 ??? Insomnia Allergies And Reactions: Allergies Allergen Reactions ??? Hydrocodone-Acetaminophen Itching and Nausea Only ??? Oxycodone-Acetaminophen Itching and Nausea Only ??? Sulfadiazine Other Past Surgical History: Past Surgical History: Procedure Laterality Date ??? SECTION, LOW TRANSVERSE ??? EXPLORATORY LAPAROTOMY 09/12/2021 evacuation of tubo-ovarian abscess Family Medical History: Family History Problem Relation Name Age of Onset ??? Cervical cancer Mother ??? Hypertension Father Social History: Social History Socioeconomic History ??? Marital status: Legally Spouse name: Not on file ??? Number of children: 5 ??? Years of education: Some College ??? Highest education level: Not on file Occupational History ??? 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 Smoking status: Current Every Day Smoker Packs/day: 1.00 Years: 32.00 Pack years: 32.00 Types: Cigarettes ??? Smokeless tobacco: Not on file Substance and Sexual Activity ??? Alcohol use: [...] on file Food Insecurity: No Food Insecurity ??? Worried About Running Out of Food in the Last Year: Never true ??? Ran Out of Food in the Last Year: Never true Transportation Needs: Not on file Physical Activity: Not on file Stress: Stress Concern Present ??? Feeling of Stress : Very much Social Connections: Unknown ??? Frequency of Communication with Friends and Family: Not on file ??? Frequency of Social Gatherings with Friends and Family: Not on file ??? Attends Congregational Services: Not on file ??? Active Member of Clubs or Organizations: Not on file ??? Attends Club or Organization Meetings: Not on file ??? Marital Status: Intimate Partner Violence: Not on file Housing Stability: Unknown ??? Unable to Pay for Housing in the Last Year: No ??? Number of Places Lived in the Last Year: Not on file ??? Unstable Housing in the Last Year: No Immunizations: There is no immunization history on file for this patient. I have updated and confirmed the past medical, surgical, family and social history. Home Medications: Prior to Admission medications Medication Sig Start Date End Date Taking? Authorizing Provider naloxone (Narcan) 4 mg/0.1 mL nasal spray Administer 1 spray (4 mg total) into affected nostril(s) if needed for opioid reversal. Call 911. Give 4 mg (1 spray) into one nostril. Repeat every 2-3 minutes as needed, alternating nostrils, until medical assistance arrives. 10/01/21 10/01/22 Alicja Villanueva, naltrexone (ReVia) 50 MG tablet Take 50 mg by mouth every night. Historical Provider, PARoxetine (Paxil) 40 MG tablet Take 40 mg by mouth 1 (one) time each day in the morning. Historical Provider, QUEtiapine (SEROquel) 100 MG tablet Take 100 mg by mouth every night. Historical Provider, QUEtiapine (SEROquel) 50 MG tablet Take 50 mg by mouth every night. Historical Provider, Anti-Thrombotic Medications: Is this patient taking warfarin, new oral anti-coagulant, or anti-platelet medication? No If Yes, What Medication: N/A Current Hospital Medications: Current Facility-Administered Medications Medication Dose Route Frequency Provider Last Rate Last Admin ??? acetaminophen (Tylenol) tablet 650 mg 650 mg Oral q4h PRN Mark Smith NP 650 mg at 10/07/21 174 ??? alteplase (Cathflo Activase) injection 2 mg 2 mg Intracatheter PRN Mark Smith NP ??? calcium carbonate (Tums) chewable tablet 500 mg 500 mg Oral 4x daily PRN Bud Alas MD 500mg at 10/07/212101 ??? dextrose 50 % solution 12.5 g 12.5 g Intravenous q15 min PRN Mark Smith NP 12.5 g at 10/03/21 0529 Or ??? dextrose 10 % (D10W) bolus 125 mL 12.5 g Intravenous q15 min PRN Mark Smith NP 1,000 mL/hr at 09/29/21 0042 125 mL at 09/29/21 0042 Or ??? glucose (Glutose) 40 % oral gel 15 g 15 g Oral q15 min PRN Mark Smith NP 15 g at 10/03/21 0510 ??? dextrose 50 % solution 25 g 25 g Intravenous q15 min PRN Mark Smith NP Or ??? dextrose 10 % (D10W) bolus 250 mL 25 g Intravenous q15 min PRN Mark Smith NP Or ??? glucose (Glutose) 40 % oral gel 30 g 30 g Oral q15 min PRN Mark Smith NP ??? dextrose 5 % infusion 30 mL/hr Intravenous Continuous Kemar Healy MD 30 mL/hr at 10/06/21 1153 30 mL/hr at 10/06/21 1153 ??? enoxaparin (Lovenox) syringe 40 mg 40 mg Subcutaneous Daily with dinner Mark Smith NP 40 mg at 10/02/21 1832 ??? famotidine (Pepcid) tablet 20 mg 20 mg Oral BID Kemar Healy MD 20 mg at 10/07/212053 ??? folic acid (Folvite) tablet 1 mg 1 mg Oral Daily Mark Smith NP 1 mg at 10/07/21 0935 ??? glucagon (human recombinant) injection 1 mg 1 mg Intramuscular q15 min PRN Mark Smith NP ??? glucose (Glutose) 40 % oral gel 15 g 15 g Oral Once PRN Mark Smith NP ??? lisinopril tablet 10 mg 10 mg Oral Daily Hiral Infante MD 10 mg at 10/07/21 0935 ??? melatonin tablet 6 mg 6 mg Oral Nightly Kemar Healy MD 6 mg at 10/07/212053 ??? mineral oil-hydrophilic petrolatum (Aquaphor) ointment 1 application 1 application Topical BID Mark Smith NP 1 application at 10/07/212054 ??? nicotine (Nicoderm CQ) 21 MG/24HR patch 1 patch 1 patch Transdermal Daily Kemar Healy MD 1 patch at 10/07/21 1002 ??? ondansetron (Zofran) injection 4 mg 4 mg Intravenous q6h PRN Mark Smith NP 4 mg at 10/01/21 1300 ??? PARoxetine (Paxil) tablet 20 mg 20 mg Oral Daily Kemar Healy MD 20 mg at 10/07/21 0936 ??? QUEtiapine (SEROquel) tablet 100 mg 100 mg Oral Nightly Kemar Healy MD 100 mg at 10/07/212053 ??? sodium chloride 0.9 % flush 3 mL 3 mL Intravenous PRN Mark Smith NP ??? thiamine (Vitamin B-1) tablet 100 mg 100 mg Oral Daily Mark Smith NP 100 mg at 10/07/21 0936 ??? traMADol (Ultram) tablet 50 mg 50 mg Oral q6h PRN Florina Calvin MD 50 mg at 10/07/212053 Objective Objective: Visit Vitals BP (!) 169/98 (BP Location: Left arm, Patient Position: Sitting) Pulse 108 Temp 36.8 ??C (98.3 ??F) Ht 1.626 m (5' 4.02 ) Wt 80.1 kg (176 lb 9.4 oz) SpO2 98% BMI 30.30 kg/m?? @ Physical Exam: Physical Exam GEN: no apparent distress, well nourished female HENT: atraumatic, normocephalic EYES: no scleral icterus, no visible conjunctival hemorrhage RESP: no respiratory distress, symmetric chest rise CV: appears well perfused, normal rate ABD: midline laparotomy closed with maximilian, superfiical dehiesence with underlying hematoma MSK/EXT: no apparent deformities, strength/tone normal : deferred NEURO: alert and oriented, no focal CN deficits PSYCH: appropriate affect, mood congruent, interactive Laboratory: CBC WBC ?? Hb ?? Plt ?? Hct ?? ANC ?? INR ??, PTT ??, Anti-Xa ?? MCV ?? BMP Na ?? Cl ?? BUN ?? Glu ?? K ?? Co2 ?? Cr ?? Ca ?? iCa ?? Mg ??, Phos ?? Lactate ?? LFT AST ?? AlkPhos ?? T Prot ?? ALK ?? Bili ?? Alb ?? D.Bili ?? Imaging: Radiographic Interpretation: No imagining today. Assessment/Plan Assessment & Plan: Rosendo Roach is a 46 y.o. female with PMHx notable for EtOH with EtOH withdrawal, HTN, depression, PARAG who presented to [facility] with hypoxic respiratory distress secondary to COVID-19 pneumonia. Patient is s/p ex lap with washout of tubo-ovarian abscess 09/12. She has recovered from COVID-19 pneumonia and is now stable on room air. General surgery consulted for wound check given superficial dehiscence. Maximilian removed at bedside and old hematoma washed out/evacuated. No evidence of infection, Fascia probed and is intact. - BID wet-to-dry dressing changes Dispo: general Surgery will continue to follow this patient CODE STATUS: full code This Consult, Assessment, and Plan has been discussed with Dr. Askew, Attending Physician Jeffrey Nuñez MD Cosigned by German Askew MD at 10/08/2021 5:04 AM EST Associated attestation - German Askew MD - 10/08/2021 5:04 AM EST I saw and evaluated the patient. I discussed the case with the resident/fellow and agree with the findings and plan as documented. * Procedures - Myrtle Jaramillo RN - 10/07/2021 2:30 PM ESTAssociated Order(s): Insert peripheral IV Insert peripheral IV Date/Time: 10/07/2021 2:30 PM Performed by: Myrtle Jaramillo RN Authorized by: Kemar Healy MD Hand hygiene: Hand hygiene performed prior to insertion Inserted using aseptic techniques: Yes Preparation: Skin prepped with chg Orientation: Left Location: Forearm Catheter placed: Peripheral IV Catheter size: 20g/1.88in Number of attempts: 1 IV flushes: Without difficulty and positive blood return noted and IV luer locked Patient tolerance: Patient tolerated the procedure well, age appropriate response and there were nocomplications IV site covered with: Transparent semipermeable dressing Education provided to: Patient * Progress Notes - Kemar Healy MD - 10/07/2021 9:08 AM EST Images from the original note were not included. Subjective The patient says that she feels tired, but says she was able sleep last night, and the Seroquel is still working well for her insomnia. Nothing else contributing to being more tired, no other complaints. No pain: Abdominal wound not hurting, except a bit with movement, improving overall, and betterwith the binder on. Review of Systems No fever, or chills No SOA, or coughing Eating still depends on the food, she is exchanging food if she doesn't like what's brought She says the Magic cup is not being delivered. She does not want Boost. Objective Physical Exam Vitals and nursing note reviewed. Constitutional: General: She is not in acute distress. Appearance: Normal appearance. Comments: Lying in bed, a little withdrawn, in no acute distress HENT: Head: Normocephalic and atraumatic. Nose: Nose normal. No congestion or rhinorrhea. Eyes: General: No scleral icterus. Conjunctiva/sclera: Conjunctivae normal. Pupils: Pupils are equal, round, and reactive to light. Cardiovascular: Rate and Rhythm: Normal rate and regular rhythm. Pulses: Normal pulses. Heart sounds: Normal heart sounds. No murmur heard. No friction rub. No gallop. Pulmonary: Effort: Pulmonary effort is normal. Breath sounds: Normal breath sounds. Abdominal: General: Bowel sounds are normal. Palpations: Abdomen is soft. Tenderness: There is no abdominal tenderness. There is no rebound. Comments: Abdominal binder Musculoskeletal: General: No swelling. Right lower leg: No edema. Left lower leg: No edema. Skin: Coloration: Skin is not jaundiced. Findings: No bruising, erythema or rash. Comments: Abdominal surgical wound with maximilian present A little dried blood at the lower edge of the dressing Abdominal binder off at present Neurological: General: No focal deficit present. Mental Status: She is alert. Mental status is at baseline. Psychiatric: Mood and Affect: Mood normal. Behavior: Behavior normal. Thought Content: Thought content normal. Last Recorded Vitals Vitals: 10/06/21 1959 10/06/21 2315 10/07/21 0331 10/07/21 0700 BP: 154/90 115/75 108/67 139/86 BP Location: Left arm Left arm Patient Position: Lying Lying Pulse: 109 (!) 125 (!) 113 110 Resp: 20 12 Temp: 36.7 ??C (98.1 ??F) 36.7 ??C (98.1 ??F) 36.7 ??C (98 ??F) 36.8 ??C (98.3 ??F) TempSrc: Oral Oral SpO2: 97% 94% 93% 92% Weight: Height: Intake/Output Summary (Last 24 hours) at 10/07/2021 0908 Last data filed at 10/06/2021 1828 Gross per 24 hour Intake 1005 ml Output 750 ml Net 255 ml Admission weight: Weight: 60 kg (132 lb 4.4 oz) Assessment/Plan Assessment and plan: Rosendo Roach is a 46 y.o. female who was undergoing inpatient alcohol detox, when she became acutely ill with ascending cholangitis, peritonitis, pneumoperitoneum, and a left tubo-ovarian abscess, requiring ICU care, surgery and broad spectrum antibiotics. She was also incidentally found to be COVID-19 positive. Principal problem: Sepsis (CMS/HCC) Due to ascending cholangitis, peritonitis, pneumoperitoneum, and a left tubo- ovarian abscess S/p exlap on 09/12 S/p ICU care/pressors Ovarian abscess culture grew nicanor glabrata, e. Coli, and enterobacter S/p meropenem, cefepime, and metronidazole (s/p 10 days of antibiotics) S/p micafungin (stopped 10/02) Trended beta glucan: BDG was reportedly >500 at the OSH, down to 259 here on 09/28 ?? Today's status: Done with antibiotics. TBD when to remove abdominal maximilian (will leave in placefor now due to bleeding from wound). Principal Problem: Sepsis (CMS/HCC) Active Problems: Respiratory failure with hypoxia (CMS/HCC) COVID-19 positive PCR positive on 09/23/2021 CT chest showed bilateral GGO, LLL atelectasis, and bilateral effusions Would be cautious with addition of steroids due to recent septic shock, abdominal surgery, and fungal infection Monitor respiratory status closely ?? Today's status: Satting between 93-99% on room air. CRP improving overall. Reordered CRP in the morning. No need for dexamethasone at present. ?? Repeat COVID swab negative on 10/06. Repeating again on 10/07, to see if isolation can be discontinued early. Lab Results Component Value Date CRP 54.3 (H) 10/05/2021 CRP 53.0 (H) 10/03/2021 CRP 73.3 (H) 09/24/2021 XDP 5.50 (H) 10/05/2021 XDP 4.85 (H) 10/03/2021 Hematoma at laparotomy site: Measures 3x4 cm, continue to monitor Acute encephalopathy (due to acute illness, ICU care, delirium, and alcohol abuse): Resolved CT head was negative S/p thiamine IV, continued on PO supplement On Seroquel (increased 09/29); Patient says she was previously on 50 mg/100 mg ?? Today's status: Has improved. No further report of hallucinations. 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 Increased her nicotine patch to help reduce cravings. Dysphagia: Advanced to a mechanical diet. Patient said that 1 of her dentures was lost while undergoing surgery at the other hospital. Hypokalemia: Continue to trend and replete as needed. Lab Results Component Value Date K 3.5 (L) 10/06/2021 Today's status: Monitor. Ordered morning labs Hypomagnesemia: Trend and replete as needed. Lab Results Component Value Date MG 1.8 (L) 10/06/2021 MG 1.3 (L) 10/05/2021 Today's status: Ordered labs Hypoglycemia: Low glucose levels possibly related to poor oral intake On hypoglycemia correction orders, resumed D5 infusion, encouraging better oral intake, monitoring glucose, and will wean the D5 as able Lab Results Component Value Date HGBA1C 4.9 09/23/2021 Lab Results Component Value Date PGLU 79 10/07/2021 PGLU 103 (H) 10/06/2021 PGLU 87 10/06/2021 PGLU 104 (H) 10/06/2021 PGLU 91 10/06/2021 Today's status: Oral is still limited due to dislike of hospital food. Trying addition of Magic Cup. Glucose levels slightly better. Try to decrease the rate on the D5 infusion as able. CHRONIC: Hypertension: Monitor BPs, reintroduce medications as needed Depression and anxiety: Increased Seroquel and resumed Paxil on 10/02 Insomnia: She has a history of chronic use of Ambien (but trying to avoid benzodiazepines); Discussed with Psychiatry on 10/02, increased Seroquel to 100 mg qPM (and can consider increasing further to150 mg): Benefit reported on the increased Seroquel dose Class 1 obesity: Body mass index is 30.3 kg/m??., complicates all aspects of care RESOLVED: Ileus: Seen on KUB 09/25, resolved with NG decompression KUB negative on 10/01 Medications: Scheduled: enoxaparin, 40 mg, Subcutaneous, Daily with dinner famotidine, 20 mg, Oral, BID folic acid, 1 mg, Oral, Daily lisinopril, 10 mg, Oral, Daily melatonin, 6 mg, Oral, Nightly mineral oil-hydrophilic petrolatum, 1 application, Topical, BID nicotine, 1 patch, Transdermal, Daily PARoxetine, 20 mg, Oral, Daily QUEtiapine, 100 mg, Oral, Nightly thiamine, 100 mg, Oral, Daily Continuous: dextrose, 30 mL/hr, Last Rate: 30 mL/hr (10/06/21 1153) As needed: acetaminophen, 650 mg, q4h PRN alteplase, 2 mg, PRN calcium carbonate, 500 mg, 4x daily PRN dextrose, 12.5 g, q15 min PRN Or dextrose 10 %, 12.5 g, q15 min PRN Or glucose, 15 g, q15 min PRN dextrose, 25 g, q15 min PRN Or dextrose 10 %, 25 g, q15 min PRN Or glucose, 30 g, q15 min PRN glucagon (human recombinant), 1 mg, q15 min PRN glucose, 15 g, Once PRN ondansetron, 4 mg, q6h PRN sodium chloride, 3 mL, PRN traMADol, 50 mg, q6h PRN Labs (in last 24 hours): CBC: No results found for: WBC, HGB, HCT, PLT, MCV, MCH, MCHC, RDW, NRBC Differential: No results found for: WBC, NEUTOPHILPCT, LYMPHOPCT, MONOPCT, EOSPCT, NEUTROABS Coagulation: No results found for: INR, PT, PTT, CLFGN Renal: No results found for: NA, K, CL, CO2, BUN, CREATININE, GLUCOSE, CALCIUM, ICAS, MG, PHOS Liver: No results found for: AST, ALT, ALPHO, BILITOT, BILIDIR Glucose: Lab Results Component Value Date PGLU 79 10/07/2021 PGLU 103 (H) 10/06/2021 PGLU 87 10/06/2021 PGLU 104 (H) 10/06/2021 Lab Results Component Value Date HGBA1C 4.9 09/23/2021 Diet Adult diet Diet texture: Mechanical soft; Sodium restriction: 2,000 mg Na DVT prophylaxis Lovenox prophylaxis during admission Anticipated discharge to Acute rehab Patient requested [facility] (daughter is director of therapy department), but this is not an acute rehab Family would prefer for her to go to [facility] Anticipated discharge needs Pending improvement Follow up PCP Alcohol treatment Liver clinic No future appointments. Code status Full Code Family contact Extended Emergency Contact Information Primary Emergency Contact: Tati Senior Mobile Relation: Daughter Secondary Emergency Contact: Herminia Monsalve Mobile Relation: Mother COVID status Positive on 09/23/2021 Kemar Healy MD Department of Internal Medicine Division of Hospital Medicine 10/07/2021 * Progress Notes - Kemar Healy MD - 10/06/2021 8:48 AM EST Images from the original note were not included. Subjective The patient says that she feels better. She is getting up to the bedside commode on her own, feels stronger. She has some right sided abdominal pain but can sit up better, and has better control of the abdominal pain with the binder on. She denies nausea, diarrhea or constipation. She still feels like she needs to pass a BM sometimes but its hard to get it out, but she says she does better if nobo dy is on the room. Review of Systems No fever, or chills No SOA, or coughing Eating depends on the food, not any better Objective Physical Exam Vitals and nursing note reviewed. Constitutional: General: She is not in acute distress. Appearance: Normal appearance. Comments: Sitting up on side of the bed, in no acute distress HENT: Head: Normocephalic and atraumatic. Nose: Nose normal. No congestion or rhinorrhea. Eyes: General: No scleral icterus. Conjunctiva/sclera: Conjunctivae normal. Pupils: Pupils are equal, round, and reactive to light. Cardiovascular: Rate and Rhythm: Normal rate and regular rhythm. Pulses: Normal pulses. Heart sounds: Normal heart sounds. No murmur heard. No friction rub. No gallop. Pulmonary: Effort: Pulmonary effort is normal. Breath sounds: Normal breath sounds. Abdominal: General: Bowel sounds are normal. Palpations: Abdomen is soft. Tenderness: There is no abdominal tenderness. There is no rebound. Comments: Abdominal binder Musculoskeletal: General: No swelling. Right lower leg: No edema. Left lower leg: No edema. Skin: Coloration: Skin is not jaundiced. Findings: No bruising, erythema or rash. Comments: Abdominal surgical wound with maximilian present Abdominal binder Neurological: General: No focal deficit present. Mental Status: She is alert. Mental status is at baseline. Psychiatric: Mood and Affect: Mood normal. Behavior: Behavior normal. Thought Content: Thought content normal. Last Recorded Vitals Vitals: 10/05/21 1541 10/05/21 2028 10/06/21 0018 10/06/21 0515 BP: (!) 145/99 156/84 118/64 117/65 BP Location: Left arm Left arm Left arm Left arm Patient Position: Lying Lying Lying Lying Pulse: (!) 120 (!) 114 (!) 119 (!) 115 Resp: 16 19 17 19 Temp: 36.8 ??C (98.2 ??F) 36.8 ??C (98.2 ??F) 36.9 ??C (98.4 ??F) 36.9 ??C (98.5 ??F) TempSrc: Oral Oral Oral Oral SpO2: 97% 96% 93% 95% Weight: Height: Intake/Output Summary (Last 24 hours) at 10/06/2021 1121 Last data filed at 10/06/2021 0013 Gross per 24 hour Intake 2274 ml Output 1700 ml Net 574 ml Admission weight: Weight: 60 kg (132 lb 4.4 oz) Assessment/Plan Assessment and plan: Rosendo Roach is a 46 y.o. female who was undergoing inpatient alcohol detox, when she became acutely ill with ascending cholangitis, peritonitis, pneumoperitoneum, and a left tubo-ovarian abscess, requiring ICU care, surgery and broad spectrum antibiotics. She was also incidentally found to be COVID-19 positive. Principal problem: Sepsis (CMS/[facility]) Due to ascending cholangitis, peritonitis, pneumoperitoneum, and a left tubo- ovarian abscess S/p exlap on 09/12 S/p ICU care/pressors Ovarian abscess culture grew nicanor glabrata, e. Coli, and enterobacter S/p meropenem, cefepime, and metronidazole (s/p 10 days of antibiotics) S/p micafungin (stopped 10/02) Trended beta glucan: BDG was reportedly >500 at the OSH, down to 259 here on 09/28 ?? Today's status: Done with antibiotics. TBD when to remove abdominal maximilian (will leave in placefor now due to bleeding from wound). Principal Problem: Sepsis (CMS/HCC) Active Problems: Respiratory failure with hypoxia ([facility]) COVID-19 positive PCR positive on 09/23/2021 CT chest showed bilateral GGO, LLL atelectasis, and bilateral effusions Would be cautious with addition of steroids due to recent septic shock, abdominal surgery, and fungal infection Monitor respiratory status closely ?? Today's status: Satting between 93-97% on room air. CRP improving overall. No need for dexamethasone at present. Lab Results Component Value Date CRP 54.3 (H) 10/05/2021 CRP 53.0 (H) 10/03/2021 CRP 73.3 (H) 09/24/2021 XDP 5.50 (H) 10/05/2021 XDP 4.85 (H) 10/03/2021 Hematoma at laparotomy site: Measures 3x4 cm, continue to monitor Acute encephalopathy (due to acute illness, ICU care, delirium, and alcohol abuse): Resolved CT head was negative S/p thiamine IV, continued on PO supplement On Seroquel (increased 09/29); Patient says she was previously on 50 mg/100 mg ?? Today's status: Has improved. No further report of hallucinations. Alcohol dependence (with history of DTs and withdrawal seizures) TRACEY consult Consider acamprosate and/or naltrexone (however, patient declined these when discussed with TRACEY) On thiamine and folate Hepatic steatosis/cirrhosis (due to alcohol abuse): Encourage sobriety Tobacco dependence: Smoking cessation counseling and NRT Patient was reportedly asking her daughter to sneak in a vape pen. Increased her nicotine patch to help reduce cravings. Dysphagia: Advanced to a mechanical diet. Patient says that 1 of her dentures was lost while undergoing surgery at the other hospital. Hypokalemia: Continue to trend and replete as needed. Lab Results Component Value Date K 3.5 (L) 10/06/2021 Today's status: Monitor. Potassium 3.5, repleted Hypomagnesemia: Trend and replete as needed. Lab Results Component Value Date MG 1.8 (L) 10/06/2021 MG 1.3 (L) 10/05/2021 Today's status: Magnesium 1.8, repleted IV Hypoglycemia: Low glucose levels possibly related to poor oral intake On hypoglycemia correction orders, resumed D5 infusion, encouraging better oral intake, monitoring glucose, and will wean the D5 as able Lab Results Component Value Date HGBA1C 4.9 09/23/2021 Lab Results Component Value Date PGLU 91 10/06/2021 PGLU 108 (H) 10/05/2021 PGLU 162 (H) 10/05/2021 PGLU 117 (H) 10/05/2021 PGLU 84 10/05/2021 Today's status: Oral is still limited due to dislike of hospital food. Trying addition of Magic Cup. Glucose levels slightly better. Trying to decrease the rate on the D5 infusion. CHRONIC: Hypertension: Monitor BPs, reintroduce medications as needed Depression and anxiety: Increased Seroquel and resumed Paxil on 10/02 Insomnia: She has a history of chronic use of Ambien (but trying to avoid benzodiazepines); Discussed with Psychiatry on 10/02, increased Seroquel to 100 mg qPM (and can consider increasing further to150 mg): Benefit reported on the increased Seroquel dose Class 1 obesity: Body mass index is 30.3 kg/m??., complicates all aspects of care RESOLVED: Ileus: Seen on KUB 09/25, resolved with NG decompression KUB negative on 10/01 Medications: Scheduled: enoxaparin, 40 mg, Subcutaneous, Daily with dinner famotidine, 20 mg, Oral, BID folic acid, 1 mg, Oral, Daily lisinopril, 10 mg, Oral, Daily magnesium sulfate, 1 g, Intravenous, Once melatonin, 6 mg, Oral, Nightly mineral oil-hydrophilic petrolatum, 1 application, Topical, BID nicotine, 1 patch, Transdermal, Daily PARoxetine, 20 mg, Oral, Daily QUEtiapine, 100 mg, Oral, Nightly thiamine, 100 mg, Oral, Daily Continuous: dextrose, 40 mL/hr, Last Rate: 40 mL/hr (10/06/21 0428) As needed: acetaminophen, 650 mg, q4h PRN alteplase, 2 mg, PRN calcium carbonate, 500 mg, 4x daily PRN dextrose, 12.5 g, q15 min PRN Or dextrose 10 %, 12.5 g, q15 min PRN Or glucose, 15 g, q15 min PRN dextrose, 25 g, q15 min PRN Or dextrose 10 %, 25 g, q15 min PRN Or glucose, 30 g, q15 min PRN glucagon (human recombinant), 1 mg, q15 min PRN glucose, 15 g, Once PRN ondansetron, 4 mg, q6h PRN sodium chloride, 3 mL, PRN traMADol, 50 mg, q6h PRN Labs (in last 24 hours): CBC: No results found for: WBC, HGB, HCT, PLT, MCV, MCH, MCHC, RDW, NRBC Differential: No results found for: WBC, NEUTOPHILPCT, LYMPHOPCT, MONOPCT, EOSPCT, NEUTROABS Coagulation: No results found for: INR, PT, PTT, CLFGN Renal: Lab Results Component Value Date NA 138 10/06/2021 K 3.5 (L) 10/06/2021 CL 104 10/06/2021 CO2 24 10/06/2021 BUN <3 (L) 10/06/2021 CREATININE 0.62 10/06/2021 GLUCOSE 81 10/06/2021 CALCIUM 8.3 (L) 10/06/2021 MG 1.8 (L) 10/06/2021 PHOS 4.8 (H) 10/06/2021 Liver: No results found for: AST, ALT, ALPHO, BILITOT, BILIDIR Glucose: Lab Results Component Value Date PGLU 91 10/06/2021 PGLU 108 (H) 10/05/2021 PGLU 162 (H) 10/05/2021 PGLU 117 (H) 10/05/2021 Lab Results Component Value Date HGBA1C 4.9 09/23/2021 Diet Adult diet Diet texture: Mechanical soft; Sodium restriction: 2,000 mg Na DVT prophylaxis Lovenox prophylaxis Anticipated discharge to Acute rehab Patient requested [facility] (daughter is director of therapy department), but this is not an acute rehab Family would prefer for her to go to [facility] Anticipated discharge needs Pending improvement Follow up PCP Alcohol treatment Liver clinic No future appointments. Code status Full Code Family contact Extended Emergency Contact Information Primary Emergency Contact: Tati Senior Mobile Relation: Daughter Secondary Emergency Contact: Bello Herminia Mobile Relation: Mother COVID status Positive on 09/23/2021 Kemar Healy MD Department of Internal Medicine Division of Hospital Medicine 10/06/2021 * Care Plan - Connie James - 10/06/2021 12:21 AM EST Problem: Adult Inpatient Plan of Care Goal: Optimal Comfort and Wellbeing Outcome: Ongoing, Progressing Goal: Readiness for Transition of Care Outcome: Ongoing, Progressing * Care Plan - LudwigManda enrique - 10/05/2021 5:21 PM EST Problem: Adult Inpatient Plan of Care Goal: Plan of Care Review Outcome: Ongoing, Progressing Flowsheets (Taken 10/05/2021 1720) Progress: improving Plan of Care Reviewed With: patient Goal: Patient-Specific Goal (Individualized) Outcome: Ongoing, Progressing Goal: Absence of Hospital-Acquired Illness or Injury Outcome: Ongoing, Progressing Goal: Optimal Comfort and Wellbeing Outcome: Ongoing, Progressing Goal: Readiness for Transition of Care Outcome: Ongoing, Progressing * Progress Notes - Kemar Healy MD - 10/05/2021 10:48 AM EST Images from the original note were not included. Subjective The patient says that she feels tired. She slept good last night, until about 3 AM, when someone came in and slammed the door, and it was hard to get back to sleep. She has some abdominal pain, still, right at the surgical site, worse when she tenses her abdominal muscles to sit up, but relieved with the pain medications. She hasn't looked at the wound. Review of Systems No fever, or chills No SOA, or coughing Eating depends on the food, but eating some with every meal Objective Physical Exam Vitals and nursing note reviewed. Constitutional: General: She is not in acute distress. Appearance: Normal appearance. Comments: Lying in bed HENT: Head: Normocephalic and atraumatic. Nose: Nose normal. No congestion or rhinorrhea. Eyes: General: No scleral icterus. Conjunctiva/sclera: Conjunctivae normal. Pupils: Pupils are equal, round, and reactive to light. Cardiovascular: Rate and Rhythm: Normal rate and regular rhythm. Pulses: Normal pulses. Heart sounds: Normal heart sounds. No murmur heard. No friction rub. No gallop. Pulmonary: Effort: Pulmonary effort is normal. Breath sounds: Normal breath sounds. Abdominal: General: Bowel sounds are normal. Palpations: Abdomen is soft. Tenderness: There is no abdominal tenderness. There is no rebound. Comments: Abdominal binder A little dried blood on the dressing (she says this was changed last night) Musculoskeletal: General: No swelling. Right lower leg: No edema. Left lower leg: No edema. Skin: Coloration: Skin is not jaundiced. Findings: No bruising, erythema or rash. Comments: Abdominal surgical wound with maximilian present A little blood on bandage still Abdominal binder Neurological: General: No focal deficit present. Mental Status: She is alert. Mental status is at baseline. Psychiatric: Mood and Affect: Mood normal. Behavior: Behavior normal. Thought Content: Thought content normal. Last Recorded Vitals Vitals: 10/04/21 2000 10/04/21 2356 10/05/21 0352 10/05/21 0802 BP: 134/78 99/64 136/83 145/85 BP Location: Left arm Patient Position: Lying Pulse: (!) 114 (!) 124 (!) 118 (!) 117 Resp: 20 20 Temp: 36.9 ??C (98.4 ??F) 36.5 ??C (97.7 ??F) 36.6 ??C (97.9 ??F) 36.8 ??C (98.3 ??F) TempSrc: Oral Oral SpO2: 96% 94% 91% 90% Weight: Height: No intake or output data in the 24 hours ending 10/05/21 1048 Admission weight: Weight: 60 kg (132 lb 4.4 oz) Assessment/Plan Assessment and plan: Rosendo Roach is a 46 y.o. female who was undergoing inpatient alcohol detox, when she became acutely ill with ascending cholangitis, peritonitis, pneumoperitoneum, and a left tubo-ovarian abscess, requiring ICU care, surgery and broad spectrum antibiotics. She was also incidentally found to be COVID-19 positive. Principal problem: Sepsis (CMS/HCC) Due to ascending cholangitis, peritonitis, pneumoperitoneum, and a left tubo- ovarian abscess S/p exlap on 09/12 S/p ICU care/pressors Ovarian abscess culture grew nicanor glabrata, e. Coli, and enterobacter S/p meropenem, cefepime, and metronidazole (s/p 10 days of antibiotics) S/p micafungin (stopped 10/02) Trended beta glucan: BDG was reportedly >500 at the OSH, down to 259 here on 1/7 ?? Today's status: Done with antibiotics. TBD when to remove abdominal maximilian (will leave in placefor now due to bleeding from wound). Principal Problem: Sepsis (CMS/HCC) Active Problems: Respiratory failure with hypoxia (CMS/HCC) COVID-19 positive PCR positive on 09/23/2021 CT chest showed bilateral GGO, LLL atelectasis, and bilateral effusions Would be cautious with addition of steroids due to recent septic shock, abdominal surgery, and fungal infection Monitor respiratory status closely ?? Today's status: Satting between 91-98% on room air. Only has minimal coughing. CRP improving overall, though virtually unchanged today at 54. No need for dexamethasone at present. Lab Results Component Value Date CRP 54.3 (H) 10/05/2021 CRP 53.0 (H) 10/03/2021 CRP 73.3 (H) 09/24/2021 XDP 5.50 (H) 10/05/2021 XDP 4.85 (H) 10/03/2021 Hematoma at laparotomy site: Measures 3x4 cm, continue to monitor Acute encephalopathy (due to acute illness, ICU care, delirium, and alcohol abuse): Resolved CT head was negative S/p thiamine IV, continued on PO supplement On Seroquel (increased 09/29); Patient says she was previously on 50 mg/100 mg ?? Today's status: Has improved. No further report of hallucinations. Alcohol dependence (with history of DTs and withdrawal seizures) TRACEY consult Consider acamprosate and/or naltrexone (however, patient declined these when discussed with TRACEY) On thiamine and folate Hepatic steatosis/cirrhosis (due to alcohol abuse): Encourage sobriety Tobacco dependence: Smoking cessation counseling and NRT Patient was reportedly asking her daughter to sneak in a vape pen. Increased her nicotine patch to help reduce cravings. Dysphagia: Advanced to a mechanical diet. Patient says that 1 of her dentures was lost while undergoing surgery at the other hospital. Hypokalemia: Continue to trend and replete as needed. Lab Results Component Value Date K 4.2 10/05/2021 Today's status: Monitor. At goal, 4.2 on 10/05 Hypomagnesemia: Trend and replete as needed. Lab Results Component Value Date MG 1.3 (L) 10/05/2021 MG 1.6 (L) 10/03/2021 Today's status: Worse, down to 1.3 on 10/05, repleted IV Hypoglycemia: Low glucose levels possibly related to poor oral intake On hypoglycemia correction orders, resumed D5 infusion, encouraging better oral intake, monitoring glucose, and will wean the D5 as able Lab Results Component Value Date HGBA1C 4.9 09/23/2021 Lab Results Component Value Date PGLU 84 10/05/2021 PGLU 92 10/04/2021 PGLU 113 (H) 10/04/2021 PGLU 106 (H) 10/04/2021 PGLU 70 (L) 10/04/2021 Today's status: Oral intake possibly slightly better. Glucose levels slightly better. Trying to decrease the rate on the D5 infusion. CHRONIC: Hypertension: Monitor BPs, reintroduce medications as needed Depression and anxiety: Increased Seroquel and resumed Paxil on 10/02 Insomnia: She has a history of chronic use of Ambien (but trying to avoid benzodiazepines); Discussed with Psychiatry on 10/02, increased Seroquel to 100 mg qPM (and can consider increasing further to150 mg): Benefit reported on the increased Seroquel dose Class 1 obesity: Body mass index is 30.3 kg/m??., complicates all aspects of care RESOLVED: Ileus: Seen on KUB 09/25, resolved with NG decompression KUB negative on 10/01 Medications: Scheduled: enoxaparin, 40 mg, Subcutaneous, Daily with dinner famotidine, 20 mg, Oral, BID folic acid, 1 mg, Oral, Daily insulin lispro, 0-5 Units, Subcutaneous, TID with meals insulin lispro, 0-3 Units, Subcutaneous, Twice at night lisinopril, 10 mg, Oral, Daily magnesium sulfate, 4 g, Intravenous, Once melatonin, 6 mg, Oral, Nightly mineral oil-hydrophilic petrolatum, 1 application, Topical, BID nicotine, 1 patch, Transdermal, Daily PARoxetine, 20 mg, Oral, Daily QUEtiapine, 100 mg, Oral, Nightly thiamine, 100 mg, Oral, Daily Continuous: dextrose, 40 mL/hr, Last Rate: 40 mL/hr (10/05/21 0953) As needed: acetaminophen, 650 mg, q4h PRN alteplase, 2 mg, PRN calcium carbonate, 500 mg, 4x daily PRN dextrose, 12.5 g, q15 min PRN Or dextrose 10 %, 12.5 g, q15 min PRN Or glucose, 15 g, q15 min PRN dextrose, 25 g, q15 min PRN Or dextrose 10 %, 25 g, q15 min PRN Or glucose, 30 g, q15 min PRN glucagon (human recombinant), 1 mg, q15 min PRN glucose, 15 g, Once PRN ondansetron, 4 mg, q6h PRN sodium chloride, 3 mL, PRN traMADol, 50 mg, q6h PRN Labs (in last 24 hours): CBC: Lab Results Component Value Date WBC 9.51 10/05/2021 HGB 8.9 (L) 10/05/2021 HCT 28.5 (L) 10/05/2021 PLT 583 (H) 10/05/2021 MCV 104 (H) 10/05/2021 MCH 32.6 (H) 10/05/2021 MCHC 31.2 10/05/2021 RDW 22.0 (H) 10/05/2021 NRBC 0.0 10/05/2021 Differential: Lab Results Component Value Date WBC 9.51 10/05/2021 NEUTOPHILPCT 49.0 10/05/2021 LYMPHOPCT 31.0 10/05/2021 MONOPCT 12.0 10/05/2021 EOSPCT 6.0 10/05/2021 NEUTROABS 4.64 10/05/2021 Coagulation: No results found for: INR, PT, PTT, CLFGN Renal: Lab Results Component Value Date NA 136 10/05/2021 K 4.2 10/05/2021 CL 103 10/05/2021 CO2 25 10/05/2021 BUN 3 (L) 10/05/2021 CREATININE 0.64 10/05/2021 GLUCOSE 82 10/05/2021 CALCIUM 8.5 (L) 10/05/2021 MG 1.3 (L) 10/05/2021 PHOS 4.3 10/05/2021 Liver: Lab Results Component Value Date AST 36 (H) 10/05/2021 ALT 14 10/05/2021 BILITOT 0.7 10/05/2021 Glucose: Lab Results Component Value Date PGLU 84 10/05/2021 PGLU 92 10/04/2021 PGLU 113 (H) 10/04/2021 PGLU 106 (H) 10/04/2021 Lab Results Component Value Date HGBA1C 4.9 09/23/2021 Diet Adult diet Diet texture: Mechanical soft; Sodium restriction: 2,000 mg Na DVT prophylaxis Lovenox prophylaxis Anticipated discharge to Acute rehab Patient requested [facility] (daughter is director of therapy department), but this is not an acute rehab Family would prefer for her to go to [facility] Anticipated discharge needs Pending improvement Follow up PCP Alcohol treatment Liver clinic No future appointments. Code status Full Code Family contact Extended Emergency Contact Information Primary Emergency Contact: Tati Senior Mobile Relation: Daughter Secondary Emergency Contact: Herminia Monsalve Mobile Relation: Mother COVID status Positive on 09/23/2021 Kemar Healy MD Department of Internal Medicine Division of Hospital Medicine 10/05/2021 * Progress Notes - Emma Sheldon R - 10/04/2021 11:09 AM EST Physical Therapy Treatment Patient Name: Rosendo Roach Today's Date: 10/04/2021 PT Discharge Recommendations: Acute rehab Equipment Recommended: Defer to facility Subjective Pt in agreement to participate in PT treatment session this date. Participants in Care Family/Caregiver Present: No Insurance Risk Analyst: Not Applicable Presentation Oxygen Therapy: None (Room air) Lines and Tubes: Intravenous access,Telemetry ([place] (removed prior to mobilization)) Pre-Session: Supine,Head of bed elevated,Lines intact,Bed alarm Pre-Session Comments: RN cleared pt for PT treatment session this date. Post-Session: Sitting in chair,RN notified,Lines intact,Chair alarm,Call light in reach Orthoses: (Abdominal Binder worn throughout session.) Precautions Medical Precautions: (COVID Isolation; General Mobility Guidelines) Objective Pain Pain Assessment Pain Assessment: 0-10 Pain Score: 7 Pain Type: Acute pain Pain Location: Abdomen Pain Orientation: Left Pain Descriptors: Aching,Discomfort Pain Frequency: Constant/continuous Pain Onset: Ongoing Clinical Progression: Not changed Effect of Pain on Daily Activities: Increased time required to perform functional mobility Patient's Stated Pain Goal: No pain Pain Management Interventions: ambulation/increased activity,position adjusted,pillow support provided,therapeutic presence Response to Interventions (Pain Reassessment) : Pt placed in position of comfort with all needs metto promote improved pain management. Delirium Screening May Agitation Sedation Scale (RASS): Alert and calm Confusion Assessment Method-ICU (CAM-ICU/PCAM-ICU) Feature 1: Acute Onset or Fluctuating Course: Negative Feature 2: Inattention: Negative Feature 3: Altered Level of Consciousness: Negative Feature 4: Disorganized Thinking: Negative Overall CAM-ICU/PCAM-ICU: Negative Bed Mobility Bed Mobility Exam: Scooting/Bridging Level of [place]: Contact guard (seated scooting towards EOB) Physical/Nonphysical Assist: Verbal Cues Assistive Device: Bed rails Bed Mobility Exam: Supine to Sit Level of [place]: Minimum assist (75% patient's effort) Physical/Nonphysical Assist: Verbal Cues,HOB elevated Assistive Device: Bed rails Bed Mobility Exam: Sit to Supine Level of [place]: (not assessed, pt remained in bedside chair upon departure.) Transfers Transfer Exam: Sit to stand Level of [place]: Minimum assist (75% patient's effort) Physical/Nonphysical Assist: Verbal Cues,1 person + 1 person to manage equipment Assistive Device: Hand held assist Transfer Exam: Stand to Sit Level of [place]: Minimum assist (75% patient's effort) Physical/Nonphysical Assist: Verbal Cues,1 person + 1 person to manage equipment Assistive Device: Hand held assist Toilet Transfer Level of [place]: Moderate assist (50% patient's effort) Physical/Nonphysical Assist: Set-up required,Verbal Cues,Additional assist utilized for safety Type of Transfer: To toilet Assistive Device: Hand held assist Ambulation Device: Hand held assist Assistance: Contact guard assist Distance : 10ft + 10ft with 1 extended seated rest break Ambulation Comments: Demonstrated decreased bilateral step length, decreased bilateral foot clearance and decreased overall gait speed. Balance Postural Appearance Posture: Stooped posture,Forward head,Rounded shoulders Static Sitting Balance Static Sitting-Balance Support: Right upper extremity support,Left upper extremity support,Feet supported Static Sitting-Level of Assistance: Contact guard Dynamic Sitting Balance Dynamic Sitting-Balance Support: Feet supported,Right upper extremity support,Left upper extremity support Dynamic Sitting-Balance: Anterior/Posterior weight shifts,Lateral weight shifts Level of Assistance: Contact guard Static Standing Balance Static Standing-Balance Support: Left upper extremity support (DIPPER AND BAKER) Static Standing-Level of Assistance: Contact guard Dynamic Standing Balance Dynamic Standing-Balance Support: Left upper extremity support (DIPPER AND BAKER) Dynamic Standing Level of Assistance: Contact guard Therapeutic Activity (25 minutes) Pt participated in bed mobility, static/dynamic balance activities, sit to stand transfers and ambulation as detailed above to promote further tolerance to OOB activites and increased IND with all functional mobility. Pt able to tolerate ambulating to bathroom with CGA after reporting not being able to tolerate transferring to bedside commode with nursing staff yesterday. Pt required extended seated rest break on toilet due to reported pain in abdomen and increased fatigue. Increased assistancerequired for sit<>stand transfer from toilet secondary to low seat height. Pt required significant encouragement to sit in bedside chair for following therapy's departure for improved positioning, but agreed to remain in bedside chair for ~30 minutes. Therapeutic Exercise (15 minutes) Participated in seated bilateral LE therapeutic exercises to increase IND with functional transfersand improved LE global strength. LE exercises included: heel raises, LAQ's with focus on eccentric control, and alternating marches X 15 reps. Pt educated on performing 20 reps each 2-3x/day; HEP written on white board in room. Mobility CARE Tool Performance MOBILITY CARE ITEMS CARE SCORE Roll Left and Right 3 Sit to Lying 3 Lying to Sitting on Side of Bed 3 Sit to Stand 3 Chair/[id number] Transfer 4 Toilet Transfer 3 Car Transfer 10 Walk 10 Feet 4 Walk 50 Feet with Two Turns 88 Walk 150 Feet 88 Walking 10 Feet of Uneven Surfaces 10 1 Step (Curb) 10 4 Steps 10 12 Steps 10 Picking up Object 88 Wheel 50 Feet with Two Turns 9 Wheel 150 Feet 9 CARE Tool Performance Score Adams Score Assist Level Description 6 Independent Patient completes the activity by him/herself with no assistance from a helper. 5 Set-up or Clean-up Assistance [place] sets up or cleans up; patient completes activity. [place] assists only prior to or following the activity. 4 Supervision or touching assistance [place] provides verbal cues and/or touching/steadying and/or contact guard assistance as patient completes activity. Assistance may be provided throughout the activity or intermittently. 3 Partial/Moderate Assistance [place] does LESS THAN HALF the effort. [place] lifts, holds or supports trunk or limbs, but provides less than half the effort. 2 Substantial/Maximal Assistance [place] does MORE THAN HALF the effort. [place] lifts or holds trunkor limbs and provides more than half the effort. 1 Dependent [place] does ALL of the effort. Patient does none of the effort to complete the activity. Or, the assistance of 2 or more helpers is required for the patient to complete the activity. Activity Not Attempted Values 7 Patient refused. 9 Not applicable - Not attempted and the patient did not perform this activity prior to the currentillness, exacerbation, or injury. 10 Not attempted due to environmental limitations (e.g., lack of equipment, weather constraints) 88 Not attempted due to medical condition or safety concerns Standardized Assessments Standardized Assessments Standardized Assessments: [facility] 6-Clicks Mobility Assessment [facility] 6-Clicks Mobility Assessment Difficulty patient has turning over in bed (including adjusting bedclothes, sheets, and blankets)?:A little Difficulty patient has sitting down on and standing up from a chair with arms (wheelchair, bedside commode, etc.)?: A little Difficulty patient has moving from lying on back to sitting on the side of the bed?: A little How much help does the patient need moving to and from a bed to a chair (including a wheelchair)?: A little How much help does the patient need to walk in hospital room?: A little How much help does the patient need climbing 3-5 steps with a railing?: A lot [facility] 6-Clicks Mobility Assessment Total : 17 Assessment Pt participated in 40 min therapeutic activity (25 min) and therapeutic exercise (15 min) treatmentsession focused on bed mobility, static/dynamic balance activities in seated and standing position,sit to stand transfers from various surfaces, bilateral LE strengthening, ambulation, functional endurance and pt education regarding HEP and mobility. Pt remains limited by decreased IND with all functional mobility and decreased overall gait distance secondary to impaired balance, poor pain management, decreased bilateral LE strength and decreased tolerance to OOB activities. Pt will benefit from continued skilled inpatient PT to address stated deficits; will progress plan of care as pt able t o tolerate. PT Recommendations Discharge Destination: Acute rehab Discharge Equipment: Defer to facility Plan Progress IND with all functional transfers; progress overall gait distance as appropriate. PT Goals PT GOAL DETAILS Goal Established Date Time Frame Goal Status PT Goal 1: Pt will maintain static sitting balance at EOB with CGA x10 minutes in preparation for transfers. 09/26/21 2 weeks Goal ongoing PT Goal 2: Pt will complete supine<>sit independently in order to get in/out of bed. weeks PT Goal 3: Pt will complete sit<>stand and bed<>chair using least restrictive device with CGA in order to increase safety with transfers. 09/26/21 2 weeks Goal ongoing PT Goal 4: Pt will ambulate 100 feet using least restrictive device with min assist in order to perform mobility with decreased risk of falls. 09/26/21 2 weeks Goal ongoing PT Goal 5: Pt/family will be independent with HEP and d/c recommendations. 09/26/21 2 weeks Goal ongoing Written by Emma Sheldon on 10/04/21 at 3:06 PM. * Progress Notes - Abigail Ansari OTA - 10/04/2021 11:07 AM EST Occupational Therapy Treatment Patient Name: Rosendo Roach Today's Date: 10/04/2021 OT Discharge Recommendations: Acute rehab Equipment Recommended: Defer to facility Subjective Pt requested to use the bathroom and was encouraged to sit up in recliner for 1 hour today. Participants in Care Family/Caregiver Present: No Presentation Oxygen Therapy: None (Room air) Lines and Tubes: Intravenous access,Telemetry Pre-Session: Supine,Head of bed elevated,Lines intact,Bed alarm Post-Session: Sitting in chair,RN notified,Lines intact,Chair alarm,Call light in reach Orthoses: (Abdominal binder on) Precautions Medical Precautions: (COVID Isolation; General Mobility Guidelines) Objective Pain Pain Assessment Pain Assessment: 0-10 Pain Score: 7 Pain Type: Acute pain Pain Location: Abdomen Pain Orientation: Left Pain Descriptors: Aching,Discomfort Pain Onset: Ongoing Delirium Screening May Agitation Sedation Scale (RASS): Alert and calm Confusion Assessment Method-ICU (CAM-ICU/PCAM-ICU) Feature 1: Acute Onset or Fluctuating Course: Negative Feature 2: Inattention: Negative Feature 3: Altered Level of Consciousness: Negative Feature 4: Disorganized Thinking: Negative Overall CAM-ICU/PCAM-ICU: Negative Cognition Cognition Overall Cognitive Status: Within Functional Limits Arousal/Alertness: Appropriate responses to stimuli Mood/Behavior: Alert Orientation Level: Oriented X4 Single Step Commands: Consistently Multi-Step Commands: Consistently Method of Communication: Verbal Safety Judgment: Decreased awareness of need for assistance Awareness of Errors: Assistance required to identify errors made Deficit Awareness: Decreased awareness of deficits Attention Span: Attends with cues to redirect Bed Mobility Bed Mobility Exam: Scooting/Bridging Level of [place]: Contact guard Physical/Nonphysical Assist: Verbal Cues Assistive Device: Bed rails Bed Mobility Exam: Supine to Sit Level of [place]: Minimum assist (75% patient's effort) Physical/Nonphysical Assist: Verbal Cues,HOB elevated Assistive Device: Bed rails Transfers Transfer Exam: Sit to stand Level of [place]: Minimum assist (75% patient's effort) Physical/Nonphysical Assist: Verbal Cues,1 person + 1 person to manage equipment Assistive Device: Hand held assist Transfer Exam: Stand to Sit Level of [place]: Minimum assist (75% patient's effort) Physical/Nonphysical Assist: Verbal Cues,1 person + 1 person to manage equipment Assistive Device: Hand held assist Toilet Transfer Level of [place]: Moderate assist (50% patient's effort) Physical/Nonphysical Assist: Additional assist utilized for safety,Set-up required,Verbal Cues Type of Transfer: To toilet,Ambulation Assistive Device: Grab bar,Hand held assist Therapeutic Activity (14 minutes) Pt required Min A for supine to sit EOB. Pt required CGA for sitting balance with Min A x 2 for sitto stand from EOB. Pt ambulated 10 ft with hand held assist + 1 for lines to increase strength and endurance for functional tasks and transfers. Pt completed toileting and ambulated 10 ft with hand held assist + 1 and transferred to chair. Pt was positioned for comfort and encouraged to sit up for 1 hour. Self-Care Interventions Self Care/Home Management (ADLs) Time Entry: 10 Lower Extremity Dressing Sock Level of Assistance: Setup LE Dressing Where Assessed: Edge of bed LE Dressing Interventions: Donned B socks in long sitting with extra time Toileting Toileting Level of Assistance: Moderate assistance Where Assessed: Toilet Toileting Interventions: Pt required Mod A x 2 for sit to stand and completed hygiene with s/u Therapeutic Exercise (15 minutes) Pt completed B UE exercises of punches, arm raises, butterflies, and shoulder Abd/Add x 20 reps to increase strength and endurance for functional tasks. Pt required verbal and visual cues for proper technique. Exercises written on white board for reference. Self-Care CARE Tool Performance SELF-CARE ITEMS CARE SCORE Eating 5 Oral Hygiene 2 Toileting Hygiene 4 Shower/Bathe Self 88 Upper Body Dressing 88 Lower Body Dressing 2 Putting On / Taking Off Footwear 5 CARE Tool Performance Score Adams Score Assist Level Description 6 Independent Patient completes the activity by him/herself with no assistance from a helper. 5 Set-up or Clean-up Assistance [place] sets up or cleans up; patient completes activity. [place] assists only prior to or following the activity. 4 Supervision or touching assistance [place] provides verbal cues and/or touching/steadying and/or contact guard assistance as patient completes activity. Assistance may be provided throughout the activity or intermittently. 3 Partial/Moderate Assistance [place] does LESS THAN HALF the effort. [place] lifts, holds or supports trunk or limbs, but provides less than half the effort. 2 Substantial/Maximal Assistance [place] does MORE THAN HALF the effort. [place] lifts or holds trunkor limbs and provides more than half the effort. 1 Dependent [place] does ALL of the effort. Patient does none of the effort to complete the activity. Or, the assistance of 2 or more helpers is required for the patient to complete the activity. Activity Not Attempted Values 7 Patient refused. 9 Not applicable - Not attempted and the patient did not perform this activity prior to the currentillness, exacerbation, or injury. 10 Not attempted due to environmental limitations (e.g., lack of equipment, weather constraints) 88 Not attempted due to medical condition or safety concerns Assessment Pt participated in 39 min of OT focused on strength and endurance for functional tasks and transfers. Pt was able to don B socks in long sitting with extra time. Pt required Min A for sit to stand from bed with Mod A x 2 for toilet transfer. Pt demo poor endurance and fatigued quickly. Pt continuesto benefit from skilled OT services and goals are appropriate. OT Recommendations Discharge Destination: Acute rehab Discharge Equipment: Defer to facility Plan Continue OT plan of care Goals OT GOAL DETAILS Goal Established Date Time Frame Goal Status OT Goal 1: Patient will complete feeding/grooming with set-up/stand by assist 2/2 sessions in orderto increase upper extremity range of motion 09/26/21 2 weeks OT Goal 2: Patient will transfer from bed to bedside commode with moderate assist x2 2/2 sessions in order to prepare for toileting 09/26/21 2 weeks OT Goal 3: Patient will complete toilet hygiene with min assist x1 2/2 sessions in order to increase upper extremity endurance 09/26/21 2 weeks Written by OSLOMON Can on 10/04/21 at 3:05 PM. * Progress Notes - Ilene Pinto - 10/04/2021 10:06 AM EST Case Management Adult Progress Note Rosendo Roach 46 y.o. female CSN: [id number] Admission: 09/23/2021 4:37 PM Primary Problem: Sepsis (CMS/HCC) Anticipated Discharge Date: TBD Discussed with multidisciplianry team, per attending physician dr. Healy pt is not medically ready to discharge. SW discussed discharge plan with pt- pt currently has acute rehab recs. Pt is stating that she is not interested in acute rehab placement and is preferring to be referred to [facility]- referral to them has been initiated. Pt is reporting that either her mother or daughter will provide her with transportation home upon the discharge. Team updated. SW will continue to follow and assist with discharge plan and as needed. Ilene Pinto * Care Plan - Emma Sepulveda RN - 10/04/2021 9:43 AM EST Problem: Adult Inpatient Plan of Care Goal: Plan of Care Review Outcome: Ongoing, Progressing Flowsheets (Taken 09/30/2021 1930 by Sindy Stevens RN) Progress: no change Plan of Care Reviewed With: patient Goal: Patient-Specific Goal (Individualized) Outcome: Ongoing, Progressing Flowsheets (Taken 10/04/2021 0900) Patient-Specific Goals (Include Timeframe): patient will allow for bedbath today Individualized Care Needs: bathroom Anxieties, Fears or Concerns: abdominal discomfort Goal: Absence of Hospital-Acquired Illness or Injury Outcome: Ongoing, Progressing Goal: Optimal Comfort and Wellbeing Outcome: Ongoing, Progressing Goal: Readiness for Transition of Care Outcome: Ongoing, Progressing Problem: Restraint, Nonbehavioral (Nonviolent) Goal: Discontinuation Criteria Achieved Outcome: Ongoing, Progressing Problem: Device-Related Complication Risk (Mechanical Ventilation, Invasive) Goal: Optimal Device Function Outcome: Ongoing, Progressing Problem: Feeding Intolerance (Enteral Nutrition) Goal: Feeding Tolerance Outcome: Ongoing, Progressing Problem: Balance Impairment (Functional Deficit) Goal: Improved Balance and Postural Control Outcome: Ongoing, Progressing Problem: Cognitive Impairment (Functional Deficit) Goal: Optimal Functional [place] Outcome: Ongoing, Progressing Problem: Coordination Impairment (Functional Deficit) Goal: Optimal Coordination Outcome: Ongoing, Progressing Problem: Muscle Strength Impairment (Functional Deficit) Goal: Improved Muscle Strength Outcome: Ongoing, Progressing * Progress Notes - Kemar Healy MD - 10/04/2021 9:16 AM EST Images from the original note were not included. Subjective The patient says that she feels alright. She feels depressed, misses her kids. She received the abdominal binder but thinks it needs to be higher up. It helps when she moves around. She denies abdominal pain. She has frequent BMs, x4 total yesterday and overnight, soft, but she also feels like she needs to strain to pass the BM, and it is only a small amount Review of Systems No fever, or chills No SOA, or coughing (just a little, rare, twice a day) Eating better depending on the food (doesn't like salt and worried about effect on her BP) Objective Physical Exam Vitals and nursing note reviewed. Constitutional: General: She is not in acute distress. Appearance: Normal appearance. Comments: Sitting up to eat breakfast HENT: Head: Normocephalic and atraumatic. Nose: Nose normal. No congestion or rhinorrhea. Eyes: General: No scleral icterus. Conjunctiva/sclera: Conjunctivae normal. Pupils: Pupils are equal, round, and reactive to light. Cardiovascular: Rate and Rhythm: Normal rate and regular rhythm. Pulses: Normal pulses. Heart sounds: Normal heart sounds. No murmur heard. No friction rub. No gallop. Pulmonary: Effort: Pulmonary effort is normal. Breath sounds: Normal breath sounds. Abdominal: General: Bowel sounds are normal. Palpations: Abdomen is soft. Tenderness: There is no abdominal tenderness. There is no rebound. Comments: Abdominal binder Musculoskeletal: General: No swelling. Right lower leg: No edema. Left lower leg: No edema. Skin: Coloration: Skin is not jaundiced. Findings: No bruising, erythema or rash. Comments: Abdominal surgical wound with maximilian present A little blood on bandage still (drying) Abdominal binder Neurological: General: No focal deficit present. Mental Status: She is alert. Mental status is at baseline. Psychiatric: Mood and Affect: Mood normal. Behavior: Behavior normal. Thought Content: Thought content normal. Last Recorded Vitals Vitals: 10/04/21 0300 10/04/21 0400 10/04/21 0800 10/04/21 1130 BP: 125/74 118/76 145/86 BP Location: Left arm Left arm Patient Position: Lying Sitting Pulse: 103 106 105 110 Resp: Temp: 36.7 ??C (98.1 ??F) 36.8 ??C (98.2 ??F) 36.6 ??C (97.8 ??F) TempSrc: Oral Oral Oral SpO2: 95% 98% 97% 98% Weight: Height: Intake/Output Summary (Last 24 hours) at 10/04/2021 1531 Last data filed at 10/04/2021 0900 Gross per 24 hour Intake 1584 ml Output 1450 ml Net 134 ml Admission weight: Weight: 60 kg (132 lb 4.4 oz) Assessment/Plan Assessment and plan: Rosendo Roach is a 46 y.o. female who was undergoing inpatient alcohol detox, when she became acutely ill with ascending cholangitis, peritonitis, pneumoperitoneum, and a left tubo-ovarian abscess, requiring ICU care, surgery and broad spectrum antibiotics. She was also incidentally found to be COVID-19 positive. Principal problem: Sepsis (CMS/HCC) Due to ascending cholangitis, peritonitis, pneumoperitoneum, and a left tubo- ovarian abscess S/p exlap on 09/12 S/p ICU care/pressors Ovarian abscess culture grew nicanor glabrata, e. Coli, and enterobacter S/p meropenem, cefepime, and metronidazole (s/p 10 days of antibiotics) S/p micafungin (stopped 10/02) Trended beta glucan: BDG was reportedly >500 at the OSH, down to 259 here on 09/28 ?? Today's status: Done with antibiotics. TBD when to remove abdominal maximilian (will leave in placefor now due to bleeding from wound). Principal Problem: Sepsis (CMS/HCC) Active Problems: Respiratory failure with hypoxia (CMS/HCC) COVID-19 positive PCR positive on 09/23/2021 CT chest showed bilateral GGO, LLL atelectasis, and bilateral effusions Would be cautious with addition of steroids due to recent septic shock, abdominal surgery, and fungal infection Monitor respiratory status closely ?? Today's status: Satting between 93-98% on room air. Only has minimal coughing. CRP improving overall. No need for dexamethasone at present. Lab Results Component Value Date CRP 53.0 (H) 10/03/2021 CRP 73.3 (H) 09/24/2021 XDP 4.85 (H) 10/03/2021 Hematoma at laparotomy site: Measures 3x4 cm, continue to monitor Acute encephalopathy (due to acute illness, ICU care, delirium, and alcohol abuse): Resolved CT head was negative S/p thiamine IV, continued on PO supplement On Seroquel (increased 09/29); Patient says she was previously on 50 mg/100 mg ?? Today's status: Has improved. No further report of hallucinations. Alcohol dependence (with history of DTs and withdrawal seizures) TRACEY consult Consider acamprosate and/or naltrexone (however, patient declined these when discussed with TRACEY) On thiamine and folate Hepatic steatosis/cirrhosis (due to alcohol abuse): Encourage sobriety Tobacco dependence: Smoking cessation counseling and NRT Patient was reportedly asking her daughter to sneak in a vape pen. Increased her nicotine patch to help reduce cravings. Dysphagia: Advanced to a mechanical diet. Patient says that 1 of her dentures was lost while undergoing surgery at the other hospital. Hypokalemia: Continue to trend and replete as needed. Lab Results Component Value Date K 3.1 (L) 10/03/2021 Today's status: Monitor Hypomagnesemia: Trend and replete as needed. Lab Results Component Value Date MG 1.6 (L) 10/03/2021 MG 1.7 (L) 10/02/2021 Today's status: Ordered repeat labs in the morning Hypoglycemia: Low glucose levels possibly related to poor oral intake On hypoglycemia correction orders, resumed D5 infusion, encouraging better oral intake, monitoring glucose, and will wean the D5 as able Lab Results Component Value Date HGBA1C 4.9 09/23/2021 Lab Results Component Value Date PGLU 106 (H) 10/04/2021 PGLU 70 (L) 10/04/2021 PGLU 97 10/03/2021 PGLU 83 10/03/2021 PGLU 108 (H) 10/03/2021 Today's status: Oral intake possibly slightly better. Continue D5 for now CHRONIC: Hypertension: Monitor BPs, reintroduce medications as needed Depression and anxiety: Increased Seroquel and resumed Paxil on 10/02 Insomnia: She has a history of chronic use of Ambien (but trying to avoid benzodiazepines); Discussed with Psychiatry on 10/02, increased Seroquel to 100 mg qPM (and can consider increasing further to150 mg): Benefit reported on the increased Seroquel dose Class 1 obesity: Body mass index is 30.3 kg/m??., complicates all aspects of care RESOLVED: Ileus: Seen on KUB 09/25, resolved with NG decompression KUB negative on 10/01 Medications: Scheduled: enoxaparin, 40 mg, Subcutaneous, Daily with dinner famotidine, 20 mg, Oral, BID folic acid, 1 mg, Oral, Daily insulin lispro, 0-5 Units, Subcutaneous, TID with meals insulin lispro, 0-3 Units, Subcutaneous, Twice at night lisinopril, 10 mg, Oral, Daily melatonin, 6 mg, Oral, Nightly mineral oil-hydrophilic petrolatum, 1 application, Topical, BID nicotine, 1 patch, Transdermal, Daily PARoxetine, 20 mg, Oral, Daily QUEtiapine, 100 mg, Oral, Nightly thiamine, 100 mg, Oral, Daily Continuous: dextrose, 50 mL/hr, Last Rate: 50 mL/hr (10/03/21 1056) As needed: acetaminophen, 650 mg, q4h PRN alteplase, 2 mg, PRN calcium carbonate, 500 mg, 4x daily PRN dextrose, 12.5 g, q15 min PRN Or dextrose 10 %, 12.5 g, q15 min PRN Or glucose, 15 g, q15 min PRN dextrose, 25 g, q15 min PRN Or dextrose 10 %, 25 g, q15 min PRN Or glucose, 30 g, q15 min PRN glucagon (human recombinant), 1 mg, q15 min PRN glucose, 15 g, Once PRN ondansetron, 4 mg, q6h PRN sodium chloride, 3 mL, PRN traMADol, 50 mg, q6h PRN Labs (in last 24 hours): CBC: No results found for: WBC, HGB, HCT, PLT, MCV, MCH, MCHC, RDW, NRBC Differential: No results found for: WBC, NEUTOPHILPCT, LYMPHOPCT, MONOPCT, EOSPCT, NEUTROABS Coagulation: No results found for: INR, PT, PTT, CLFGN Renal: No results found for: NA, K, CL, CO2, BUN, CREATININE, GLUCOSE, CALCIUM, ICAS, MG, PHOS Liver: No results found for: AST, ALT, ALPHO, BILITOT, BILIDIR Glucose: Lab Results Component Value Date PGLU 106 (H) 10/04/2021 PGLU 70 (L) 10/04/2021 PGLU 97 10/03/2021 PGLU 83 10/03/2021 Lab Results Component Value Date HGBA1C 4.9 09/23/2021 Diet Adult diet Diet texture: Mechanical soft; Sodium restriction: 2,000 mg Na DVT prophylaxis Lovenox prophylaxis Anticipated discharge to Acute rehab Patient requested [facility] (daughter is director of therapy department), but this is not an acute rehab Family would prefer for her to go to [facility] Anticipated discharge needs Pending improvement Follow up PCP Alcohol treatment Liver clinic No future appointments. Code status Full Code Family contact Extended Emergency Contact Information Primary Emergency Contact: Tati Senior Mobile Relation: Daughter Secondary Emergency Contact: Herminia Monsalve Mobile Relation: Mother COVID status Positive on 09/23/2021 Kemar Healy MD Department of Internal Medicine Division of Hospital Medicine 10/04/2021 * Care Plan - Emma Sepulveda RN - 10/03/2021 11:38 AM EST Problem: Adult Inpatient Plan of Care Goal: Plan of Care Review Outcome: Ongoing, Progressing Flowsheets (Taken 09/30/2021 1930 by Sindy Stevens RN) Progress: no change Plan of Care Reviewed With: patient Goal: Patient-Specific Goal (Individualized) Outcome: Ongoing, Progressing Flowsheets (Taken 10/03/2021 1100) Patient-Specific Goals (Include Timeframe): patient will call out when she needs to go to the bathroom Individualized Care Needs: bathroom Anxieties, Fears or Concerns: none Goal: Absence of Hospital-Acquired Illness or Injury Outcome: Ongoing, Progressing Goal: Optimal Comfort and Wellbeing Outcome: Ongoing, Progressing Goal: Readiness for Transition of Care Outcome: Ongoing, Progressing Problem: Restraint, Nonbehavioral (Nonviolent) Goal: Discontinuation Criteria Achieved Outcome: Ongoing, Progressing Problem: Device-Related Complication Risk (Mechanical Ventilation, Invasive) Goal: Optimal Device Function Outcome: Ongoing, Progressing Problem: Feeding Intolerance (Enteral Nutrition) Goal: Feeding Tolerance Outcome: Ongoing, Progressing Problem: Balance Impairment (Functional Deficit) Goal: Improved Balance and Postural Control Outcome: Ongoing, Progressing Problem: Cognitive Impairment (Functional Deficit) Goal: Optimal Functional [place] Outcome: Ongoing, Progressing Problem: Coordination Impairment (Functional Deficit) Goal: Optimal Coordination Outcome: Ongoing, Progressing Problem: Muscle Strength Impairment (Functional Deficit) Goal: Improved Muscle Strength Outcome: Ongoing, Progressing * Progress Notes - Kemar Healy MD - 10/03/2021 9:55 AM EST Images from the original note were not included. Subjective The patient says that she feels better than yesterday again. She reports less of a headache. She thinks it was due to lying down. This is typical for her if she lies down too long. The headache is inthe back of the head, dull, ands constant. She slept really god overnight, but there were frequent interruptions. She says that she needs an abdominal binder, which has been called for twice, but hasnot arrived yet. She says it would make it easier to getting & out of bed, because it feels like her muscles are getting pulled down there when she gets up. Review of Systems No fever, or chills No SOA, and just a little coughing She didn't eat much last night because lunch yesterday was gross (too salty) Eyes are watery No hallucinations Objective Physical Exam Vitals and nursing note reviewed. Constitutional: General: She is not in acute distress. Appearance: Normal appearance. HENT: Head: Normocephalic and atraumatic. Nose: Nose normal. No congestion or rhinorrhea. Eyes: General: No scleral icterus. Conjunctiva/sclera: Conjunctivae normal. Pupils: Pupils are equal, round, and reactive to light. Cardiovascular: Rate and Rhythm: Normal rate and regular rhythm. Pulses: Normal pulses. Heart sounds: Normal heart sounds. No murmur heard. No friction rub. No gallop. Pulmonary: Effort: Pulmonary effort is normal. Breath sounds: Normal breath sounds. Abdominal: General: Bowel sounds are normal. Palpations: Abdomen is soft. Tenderness: There is no abdominal tenderness. There is no rebound. Musculoskeletal: General: No swelling. Right lower leg: No edema. Left lower leg: No edema. Skin: Coloration: Skin is not jaundiced. Findings: No bruising, erythema or rash. Comments: Abdominal surgical wound with maximilian present A little blood on bandage Neurological: General: No focal deficit present. Mental Status: She is alert. Mental status is at baseline. Psychiatric: Mood and Affect: Mood normal. Behavior: Behavior normal. Thought Content: Thought content normal. Last Recorded Vitals Vitals: 10/03/21 0314 10/03/21 0315 10/03/21 0700 10/03/21 1100 BP: 104/65 136/78 113/68 BP Location: Left arm Left arm Left arm Patient Position: Lying Lying Lying Pulse: 103 95 107 Resp: 13 16 17 Temp: 36.9 ??C (98.5 ??F) 37 ??C (98.6 ??F) 36.9 ??C (98.4 ??F) TempSrc: Oral Oral Oral SpO2: 96% 97% 95% Weight: Height: Intake/Output Summary (Last 24 hours) at 10/03/2021 1531 Last data filed at 10/03/2021 1056 Gross per 24 hour Intake 1670 ml Output -- Net 1670 ml Admission weight: Weight: 60 kg (132 lb 4.4 oz) Assessment/Plan Assessment and plan: Rosendo Roach is a 46 y.o. female who was undergoing inpatient alcohol detox, when she became acutely ill with ascending cholangitis, peritonitis, pneumoperitoneum, and a left tubo-ovarian abscess, requiring ICU care, surgery and broad spectrum antibiotics. She was also incidentally found to be COVID-19 positive. Principal problem: Sepsis (CMS/HCC) Due to ascending cholangitis, peritonitis, pneumoperitoneum, and a left tubo- ovarian abscess S/p exlap on 09/12 S/p ICU care/pressors Ovarian abscess culture grew nicanor glabrata, e. Coli, and enterobacter S/p meropenem, cefepime, and metronidazole (s/p 10 days of antibiotics) S/p micafungin (stopped 10/02) Trended beta glucan: BDG was reportedly >500 at the OSH, down to 259 here on 09/28 ?? Today's status: Now off micafungin following ID consult. TBD when to remove abdominal maximilian (will leave in place for now due to bleeding from wound). Principal Problem: Sepsis (CMS/HCC) Active Problems: Respiratory failure with hypoxia (CMS/HCC) COVID-19 positive PCR positive on 09/23/2021 CT chest showed bilateral GGO, LLL atelectasis, and bilateral effusions Would be cautious with addition of steroids due to recent septic shock, abdominal surgery, and fungal infection Monitor respiratory status closely ?? Today's status: Satting between 90-100% on room air. CRP improving. Lab Results Component Value Date CRP 53.0 (H) 10/03/2021 CRP 73.3 (H) 09/24/2021 XDP 4.85 (H) 10/03/2021 Hematoma at laparotomy site: Measures 3x4 cm, continue to monitor Acute encephalopathy (due to acute illness, ICU care, delirium, and alcohol abuse) CT head negative S/p thiamine IV, continued on PO supplement On Seroquel (increased 09/29); Patient says she was previously on 50 mg/100 mg ?? Today's status: Has improved. No further report of hallucinations. Alcohol dependence (with history of DTs and withdrawal seizures) TRACEY consult Consider acamprosate and/or naltrexone (patient declined these when discussed with TRACEY) On thiamine and folate Hepatic steatosis/cirrhosis (due to alcohol abuse): Encourage sobriety Tobacco dependence: Smoking cessation counseling and NRT Patient was reportedly asking her daughter to sneak in a vape pen. Increased her nicotine patch to help reduce cravings. Dysphagia: Advanced to a mechanical diet. Patient says that 1 of her dentures was lost while undergoing surgery at the other hospital. Hypokalemia: Continue to trend and replete as needed. Lab Results Component Value Date K 3.1 (L) 10/03/2021 Today's status: Potassium 3.1, repleted Hypomagnesemia: Trend and replete as needed. Lab Results Component Value Date MG 1.6 (L) 10/03/2021 MG 1.7 (L) 10/02/2021 Today's status: Magnesium 1.6, repleted IV Hypoglycemia: Worse on 10/03 (after trying to discontinue D5) Low glucose levels possibly related to poor oral intake On hypoglycemia correction orders, resumed D5 infusion, encouraging better oral intake, monitoring glucose, and will wean the D5 as able Lab Results Component Value Date HGBA1C 4.9 09/23/2021 Lab Results Component Value Date PGLU 108 (H) 10/03/2021 PGLU 80 10/03/2021 PGLU 70 (L) 10/03/2021 PGLU 165 (H) 10/03/2021 PGLU 58 (L) 10/03/2021 CHRONIC: Hypertension: Monitor BPs, reintroduce medications as needed Depression and anxiety: Increased Seroquel and resumed Paxil on 10/02 Insomnia: She has a history of chronic use of Ambien (but trying to avoid benzodiazepines); Discussed with Psychiatry on 10/02, increased Seroquel to 100 mg qPM (and can consider increasing further to150 mg): Benefit reported on the increased Seroquel dose Class 1 obesity: Body mass index is 30.3 kg/m??., complicates all aspects of care RESOLVED: Ileus: Seen on KUB 09/25, resolved with NG decompression KUB negative on 10/01 Medications: Scheduled: enoxaparin, 40 mg, Subcutaneous, Daily with dinner famotidine, 20 mg, Oral, BID folic acid, 1 mg, Oral, Daily insulin regular, 0-5 Units, Subcutaneous, q6h SUKHJINDER lisinopril, 10 mg, Oral, Daily melatonin, 6 mg, Oral, Nightly mineral oil-hydrophilic petrolatum, 1 application, Topical, BID nicotine, 1 patch, Transdermal, Daily PARoxetine, 20 mg, Oral, Daily QUEtiapine, 100 mg, Oral, Nightly thiamine, 100 mg, Oral, Daily Continuous: dextrose, 50 mL/hr, Last Rate: 50 mL/hr (10/03/21 1056) As needed: acetaminophen, 650 mg, q4h PRN alteplase, 2 mg, PRN calcium carbonate, 500 mg, 4x daily PRN dextrose, 12.5 g, q15 min PRN Or dextrose 10 %, 12.5 g, q15 min PRN Or glucose, 15 g, q15 min PRN dextrose, 25 g, q15 min PRN Or dextrose 10 %, 25 g, q15 min PRN Or glucose, 30 g, q15 min PRN glucagon (human recombinant), 1 mg, q15 min PRN glucose, 15 g, Once PRN ondansetron, 4 mg, q6h PRN sodium chloride, 3 mL, PRN traMADol, 50 mg, q6h PRN Labs (in last 24 hours): CBC: Lab Results Component Value Date WBC 8.83 10/03/2021 HGB 7.7 (L) 10/03/2021 HCT 25.1 (L) 10/03/2021 PLT 484 (H) 10/03/2021 MCV 107 (H) 10/03/2021 MCH 32.9 (H) 10/03/2021 MCHC 30.7 10/03/2021 RDW 22.9 (H) 10/03/2021 NRBC 0.0 10/03/2021 Differential: Lab Results Component Value Date WBC 8.83 10/03/2021 NEUTOPHILPCT 57.0 10/03/2021 LYMPHOPCT 23.0 10/03/2021 MONOPCT 10.0 10/03/2021 EOSPCT 8.0 10/03/2021 NEUTROABS 5.09 10/03/2021 Coagulation: No results found for: INR, PT, PTT, CLFGN Renal: Lab Results Component Value Date NA 135 (L) 10/03/2021 K 3.1 (L) 10/03/2021 CL 99 10/03/2021 CO2 28 10/03/2021 BUN 6 (L) 10/03/2021 CREATININE 0.64 10/03/2021 GLUCOSE 82 10/03/2021 CALCIUM 7.8 (L) 10/03/2021 MG 1.6 (L) 10/03/2021 PHOS 3.4 10/03/2021 Liver: Lab Results Component Value Date AST 33 (H) 10/03/2021 ALT 15 10/03/2021 BILITOT 0.6 10/03/2021 Glucose: Lab Results Component Value Date PGLU 108 (H) 10/03/2021 PGLU 80 10/03/2021 PGLU 70 (L) 10/03/2021 PGLU 165 (H) 10/03/2021 PGLU 58 (L) 10/03/2021 PGLU 68 (L) 10/03/2021 Lab Results Component Value Date HGBA1C 4.9 09/23/2021 Diet Adult diet Diet texture: Mechanical soft; Sodium restriction: 2,000 mg Na DVT prophylaxis Lovenox prophylaxis Anticipated discharge to Acute rehab Patient requested [facility] (daughter is director of therapy department) Family would prefer for her to go to [facility] Anticipated discharge needs Pending improvement Follow up PCP Alcohol treatment Liver clinic No future appointments. Code status Full Code Family contact Extended Emergency Contact Information Primary Emergency Contact: Tati Senior Mobile Relation: Daughter Secondary Emergency Contact: Herminia Monsalve Mobile Relation: Mother COVID status Positive on 09/23/2021 Kemar Healy MD Department of Internal Medicine Division of Hospital Medicine 10/03/2021 * Care Plan - Hunter Herrera RN - 10/02/2021 11:35 PM EST Problem: Adult Inpatient Plan of Care Goal: Plan of Care Review Outcome: Ongoing, Progressing Goal: Patient-Specific Goal (Individualized) Outcome: Ongoing, Progressing Goal: Absence of Hospital-Acquired Illness or Injury Outcome: Ongoing, Progressing Goal: Optimal Comfort and Wellbeing Outcome: Ongoing, Progressing Goal: Readiness for Transition of Care Outcome: Ongoing, Progressing Problem: Restraint, Nonbehavioral (Nonviolent) Goal: Discontinuation Criteria Achieved Outcome: Ongoing, Progressing Problem: Device-Related Complication Risk (Mechanical Ventilation, Invasive) Goal: Optimal Device Function Outcome: Ongoing, Progressing Problem: Feeding Intolerance (Enteral Nutrition) Goal: Feeding Tolerance Outcome: Ongoing, Progressing Problem: Balance Impairment (Functional Deficit) Goal: Improved Balance and Postural Control Outcome: Ongoing, Progressing Problem: Cognitive Impairment (Functional Deficit) Goal: Optimal Functional [place] Outcome: Ongoing, Progressing Problem: Coordination Impairment (Functional Deficit) Goal: Optimal Coordination Outcome: Ongoing, Progressing Problem: Muscle Strength Impairment (Functional Deficit) Goal: Improved Muscle Strength Outcome: Ongoing, Progressing * Consults - Georgie Cunningham MD - 10/02/2021 2:48 PM ESTAssociated Order(s): Inpatient consult to Infectious Diseases Inpatient consult to Infectious Diseases Consult performed by: Georgie Cunningham MD Consult ordered by: Kemar Healy MD Reason For Consult Antifungal treatment length Requesting Service: [facility] Requested Date/Time: 10/02/2021 History Of Present Illness Rosendo Roach is a 46 y.o. female with a PMH significant for alcohol use disorder, DTs with seizure activity, HTN, depression and PARAG who was transferred from an OSH for higher level of care in the setting of sepsis 2/2 tubo-ovarian abscess. She underwent an ex-lap at the OSH on 09/12 with culture growing Nicanor glabrata, Enterobacter, and E coli. She has completed a 10 day course of meropenem transitioned to cefepime and flagyl that was completed on 09/26. She was also placed on micafungin which has been continued in the setting of increased beta-glucan of >500 at the OSH, today is day 16 of treatment. Pt's course has been complicated by AHRF 2/2 bilateral pneumonia vs ARDS (resolved), ileus (resolved), and asymptomatic COVID19 infection. At this time, she has significantly clinically improved. She is hemodynamically stable, no longer requiring oxygen supplementation, and a recent CT A/P w/contrast showed no evidence of recurrent fluid collections concerning for abscesses. Her beta glucan was recently repeated on 09/28 and has improved but was still increased at 259. ID was consulted concerning treatment length for Nicanor glabrata in the setting of elevated beta glucan. Past Medical History EtOH dependence EtOH withdrawal with DTs and seizures Depression General anxiety disorder HTN Insomnia Surgical History section Exploratory laparotomy Family History Father alive at 74: HTN Mother alive at 69: cervical CA Social History She reports that she has been smoking cigarettes. She has a 32.00 pack-year smoking history. She does not have any smokeless tobacco history on file. She reports current alcohol use of about 21.0 - 30.0 standard drinks of alcohol per week. She reports that she does not use drugs. Allergies Hydrocodone-acetaminophen, Oxycodone-acetaminophen, and Sulfadiazine Medications Current Facility-Administered Medications Medication Dose Route Frequency Provider Last Rate Last Admin ??? acetaminophen (Tylenol) tablet 650 mg 650 mg Oral q4h PRN Mark Smith NP 650 mg at 10/02/21911 ??? alteplase (Cathflo Activase) injection 2 mg 2 mg Intracatheter PRN Mark Smith NP ??? calcium carbonate (Tums) chewable tablet 500 mg 500 mg Oral 4x daily PRN Bud Alas MD 500mg at 10/02/21911 ??? dextrose 50 % solution 12.5 g 12.5 g Intravenous q15 min PRN Mark Smith NP 25 g at 09/24/21 0347 Or ??? dextrose 10 % (D10W) bolus 125 mL 12.5 g Intravenous q15 min PRN Mark Smith NP 1,000 mL/hr at 09/29/21 0042 125 mL at 09/29/21 0042 Or ??? glucose (Glutose) 40 % oral gel 15 g 15 g Oral q15 min PRN Mark Smith NP ??? dextrose 50 % solution 25 g 25 g Intravenous q15 min PRN Mark Smith NP Or ??? dextrose 10 % (D10W) bolus 250 mL 25 g Intravenous q15 min PRN Mark Smith NP Or ??? glucose (Glutose) 40 % oral gel 30 g 30 g Oral q15 min PRN Mark Smith NP ??? enoxaparin (Lovenox) syringe 40 mg 40 mg Subcutaneous Daily with dinner Mark Smith NP 40 mg at 10/01/211815 ??? famotidine (Pepcid) tablet 20 mg 20 mg Oral BID Kemar Healy MD 20 mg at 10/02/21 0913 ??? folic acid (Folvite) tablet 1 mg 1 mg Oral Daily Mark Smith NP 1 mg at 10/02/21 0912 ??? glucagon (human recombinant) injection 1 mg 1 mg Intramuscular q15 min PRN Mark Smith NP ??? glucose (Glutose) 40 % oral gel 15 g 15 g Oral Once PRN Mark Smith NP ??? insulin regular (HumuLIN R,NovoLIN R) 100 units/mL injection - Correction - Standard Dose 0-5 Units Subcutaneous q6h SUKHJINDER Mark Smith NP ??? lisinopril tablet 10 mg 10 mg Oral Daily Hiral Infante MD 10 mg at 10/02/21 09 ??? melatonin tablet 6 mg 6 mg Oral Nightly Kemar Healy MD ??? micafungin (Mycamine) 100 mg in sodium chloride 0.9 % 100 mL IVPB 100 mg Intravenous q24h Mark Smith NP 100 mg at 10/01/211815 ??? mineral oil-hydrophilic petrolatum (Aquaphor) ointment 1 application 1 application Topical BID Mark Smith NP 1 application at 10/02/21 0930 ??? nicotine (Nicoderm CQ) 21 MG/24HR patch 1 patch 1 patch Transdermal Daily Kemar Healy MD 1 patch at 10/02/21 1237 ??? ondansetron (Zofran) injection 4 mg 4 mg Intravenous q6h PRN Mark Smith NP 4 mg at 10/01/21 1300 ??? [START ON 10/03/2021] PARoxetine (Paxil) tablet 20 mg 20 mg Oral Daily Kemar Healy MD ??? QUEtiapine (SEROquel) tablet 100 mg 100 mg Oral Nightly Kemar Healy MD ??? sodium chloride 0.9 % flush 3 mL 3 mL Intravenous PRN Mark Smith NP ??? thiamine (Vitamin B-1) tablet 100 mg 100 mg Oral Daily Mrak Smith NP 100 mg at 10/02/21 0913 ??? traMADol (Ultram) tablet 50 mg 50 mg Oral q6h PRN Florina Calvin MD 50 mg at 10/02/21 0912 Review of Systems Review of Systems Constitutional: Negative for chills and fever. HENT: Negative for congestion and rhinorrhea. Respiratory: Negative for cough and shortness of breath. Cardiovascular: Negative for chest pain and leg swelling. Gastrointestinal: Positive for abdominal pain. Negative for nausea and vomiting. Genitourinary: Negative for dysuria and hematuria. Musculoskeletal: Negative for arthralgias and joint swelling. Skin: Negative for pallor and rash. Neurological: Negative for dizziness and light-headedness. Psychiatric/Behavioral: Positive for sleep disturbance. The patient is not nervous/anxious. Last Recorded Vitals Blood pressure (!) 150/91, pulse 105, temperature 36.6 ??C (97.8 ??F), temperature source Oral, resp. rate 19, height 1.626 m (5' 4.02 ), weight 80.1 kg (176 lb 9.4 oz), SpO2 97 %. Physical Exam Physical Exam Constitutional: General: She is not in acute distress. Appearance: Normal appearance. She is not ill-appearing. HENT: Head: Normocephalic and atraumatic. Right Ear: External ear normal. Left Ear: External ear normal. Nose: Nose normal. Mouth/Throat: Pharynx: Oropharynx is clear. Eyes: Conjunctiva/sclera: Conjunctivae normal. Cardiovascular: Rate and Rhythm: Regular rhythm. Tachycardia present. Heart sounds: No murmur heard. No friction rub. No gallop. Pulmonary: Effort: Pulmonary effort is normal. Breath sounds: No wheezing, rhonchi or rales. Abdominal: General: Bowel sounds are normal. There is no distension. Palpations: Abdomen is soft. Tenderness: There is abdominal tenderness (mild, diffuse). There is no guarding or rebound. Musculoskeletal: Cervical back: Neck supple. Right lower leg: No edema. Left lower leg: No edema. Skin: General: Skin is warm and dry. Neurological: General: No focal deficit present. Mental Status: She is alert and oriented to person, place, and time. Psychiatric: Mood and Affect: Mood normal. Behavior: Behavior normal. Relevant Results Labs in last 18 hours CBC WBC 11.99 (H) Hb 8.5 (L) Plt 543 (H) Hct 27.4 (L) ANC 7.68 (H) INR ??, PTT ??, Anti-Xa ?? BMP Na 134 (L) Cl 96 (L) BUN 6 (L) Glu 93 K 3.0 (L) Co2 28 Cr 0.64 Ca 8.4 (L) iCa ?? Mg 1.7 (L), Phos 4.3 Lactate ?? Beta-glucan: 259 CT ABDOMEN PELVIS W IV CONTRAST ?? - Narrative - Exam/Procedure: CT ABDOMEN PELVIS W IV CONTRAST ordered by BLANCO GARCIA, [id number] ?? CLINICAL INDICATION: Abdominal abscess/infection suspected ?? TECHNIQUE: Multiple axial CT images were obtained from lung bases through pubic symphysis following administration of IV contrast, Omnipaque 300, 100 mL. Delayed images of abdomen and kidneys also obtained. Reformatted images in the coronal and sagittal planes were generated from the axial data set to facilitate diagnostic accuracy. ?? Total DLP (Dose-Length Product): 1422.66 mGy.cm. Please note: The reported value represents the total of one or more individual components during the CT acquisition on this date and at this time, andas such, the same value may appear in more than one CT report depending on the interpreting/reporting physicians. ?? COMPARISON: CT from September 23, 2021 ?? FINDINGS: Lower Chest: There are [id number] bilateral pleural effusions. There is left lower lobe atelectasis. Patchy bibasal opacities are present. ?? Solid Abdominal Organs: Liver demonstrates fatty change. No discrete suspicious focal liver lesions. Decompressed somewhat edematous gallbladder. Unremarkable pancreas and spleen. Unremarkable adrenal glands. No hydronephrosis. Small bilateral renal cysts are present. Punctate calculi are present bilaterally. ?? GI Tract/Mesentery/Peritoneum: Large and small bowel appear normal in caliber. No pneumatosis. Mesenteric edema is present.. ?? Pelvic Viscera: Decompressed, catheterized urinary bladder. No pelvic mass. ?? Lymph Nodes/Vasculature: Aortoiliac vasculature is normal in caliber. No lymphadenopathy ?? Free Fluid:There is a small to moderate amount of ascites. ?? Musculoskeletal and Body Wall:No clearly aggressive bone lesions. Small hematoma along the laparotomy incision ?? - Impression - There is a small to moderate amount of ascites. No discrete fluid collections to suggest abscess.. No evidence of bowel obstruction. ?? Hematoma along the laparotomy incision, measuring roughly 4 x 3 cm in the axial plane ?? Patchy bibasal lung opacities ?? Signed by Steve Hdz on 09/27/2021 10:46 AM Assessment/Plan Principal Problem: Sepsis (CMS/HCC) Active Problems: Respiratory failure with hypoxia (CMS/HCC) Rosendo Roach is a 46 y.o. female with a PMH significant for alcohol use disorder, DTs with seizure activity, HTN, depression and PARAG who was transferred from an OSH for higher level of care in the setting of sepsis 2/2 tubo-ovarian abscess s/p ex-lap with debridement and washout c/b AHRF 2/2 bilateral pneumonia vs ARDS (resolved), ileus (resolved), and asymptomatic COVID19 infection. now clinically improved. #Polymicrobial tubo-ovarian abscess s/p ex-lap with debridement and washout - culture grew Nicanor glabrata, Enterobacter, and E coli - completed 10 day course of meropenem, cefepime, and flagyl, currently on day 16 of micafungin treatment - beta glucan initially >500 at OSH, 259 on repeat on 09/28 - in the setting of presumed source control with debridement and washout during ex-lap and no evidence of recurrent fluid collections on CT A/P w/contrast as well as pt's continued clinical improvement and down-trending beta glucan, recommend discontinuation of micafungin at this time Thank you for the opportunity to participate in the care of this patient. ID will sign off at this time. Please reach out with any further questions. Georgie Cunningham, PGY-2 Cosigned by David Roa MD at 10/02/2021 8:20 PM EST Associated attestation - David Roa MD - 10/02/2021 8:20 PM EST I saw and evaluated the patient. I discussed the case with the resident/fellow and agree with the findings and plan as documented. * Progress Notes - Kemar Healy MD - 10/02/2021 1:13 PM EST Images from the original note were not included. Subjective The patient says that she feels better than yesterday. Yesterday she had 6 episodes of diarrhea, loose, associated with pain and cramps. The cramping is common for her when she is having her period, which she has right now, so she is not sure if the cramps are due to the diarrhea or to menses. No nausea yesterday, but she'd had nausea and vomiting the day before. She has really bad acid reflux, which responds to omeprazole (BID at home). She is also agreeable to try Pepcid. Review of Systems Asking to see PT/OT due to weakness No fever, or chills No SOA, but still coughing a little, better than prior, productive of clear sputum No chest pain or tightness Still having with sleeping, hard to fall asleep and stay asleep Mood is depressed, misses her kids Says she is seeing people that aren't really there (it sounds like this was after she moved out of the ICU) Objective Physical Exam Vitals and nursing note reviewed. Constitutional: General: She is not in acute distress. Appearance: Normal appearance. HENT: Head: Normocephalic and atraumatic. Nose: Nose normal. No congestion or rhinorrhea. Eyes: General: No scleral icterus. Conjunctiva/sclera: Conjunctivae normal. Pupils: Pupils are equal, round, and reactive to light. Cardiovascular: Rate and Rhythm: Normal rate and regular rhythm. Pulses: Normal pulses. Heart sounds: Normal heart sounds. No murmur heard. No friction rub. No gallop. Pulmonary: Effort: Pulmonary effort is normal. Breath sounds: Normal breath sounds. Abdominal: General: Bowel sounds are normal. Palpations: Abdomen is soft. Tenderness: There is no abdominal tenderness. There is no rebound. Musculoskeletal: General: No swelling. Right lower leg: No edema. Left lower leg: No edema. Skin: Coloration: Skin is not jaundiced. Findings: No bruising, erythema or rash. Comments: Abdominal surgical wound with maximilian present A little dried blood on bandage Neurological: General: No focal deficit present. Mental Status: She is alert. Mental status is at baseline. Psychiatric: Mood and Affect: Mood normal. Behavior: Behavior normal. Comments: Hallucinations (last was when she moved out of ICU) Last Recorded Vitals Vitals: 10/01/21 2326 10/02/21 0400 10/02/21 0735 10/02/21 1124 BP: 134/85 145/84 143/76 (!) 150/91 BP Location: Left arm Left arm Left arm Left arm Patient Position: Lying Lying Pulse: 103 94 108 105 Resp: Temp: 36.7 ??C (98 ??F) 36.8 ??C (98.2 ??F) 36.9 ??C (98.4 ??F) 36.6 ??C (97.8 ??F) TempSrc: Oral Oral Oral Oral SpO2: 100% 95% 94% 97% Weight: Height: Intake/Output Summary (Last 24 hours) at 10/02/2021 1313 Last data filed at 10/02/2021 0911 Gross per 24 hour Intake 345 ml Output 500 ml Net -155 ml Admission weight: Weight: 60 kg (132 lb 4.4 oz) Assessment/Plan Assessment and plan: Rosendo Roach is a 46 y.o. female who was undergoing inpatient alcohol detox, when she became acutely ill with ascending cholangitis, peritonitis, pneumoperitoneum, and a left tubo-ovarian abscess, requiring ICU care, surgery and broad spectrum antibiotics. She was also incidentally found to be COVID-19 positive. Principal problem: Sepsis (CMS/HCC) Due to ascending cholangitis, peritonitis, pneumoperitoneum, and a left tubo- ovarian abscess S/p exlap on 09/12 S/p ICU care/pressors Ovarian abscess culture grew nicanor glabrata, e. Coli, and enterobacter S/p meropenem, cefepime, and metronidazole (s/p 10 days of antibiotics) Continued on micafungin Trending beta glucan: BDG was reportedly >500 at the OSH, down to 259 here on 09/28 ?? Today's status: Consulted ID. TBD when to stop micafungin. TBD when to remove abdominal maximilian (will leave in place for now due to bleeding from wound). Principal Problem: Sepsis (CMS/HCC) Active Problems: Respiratory failure with hypoxia (CMS/HCC) COVID-19 positive PCR positive on 09/23/2021 CT chest showed bilateral GGO, LLL atelectasis, and bilateral effusions Would be cautious with addition of steroids due to recent septic shock, abdominal surgery, and fungal infection Monitor respiratory status closely Hematoma at laparotomy site: Measures 3x4 cm, continue to monitor Acute encephalopathy (due to acute illness, ICU care, delirium, and alcohol abuse) CT head negative S/p thiamine IV, continued on PO supplement On Seroquel (increased 09/29); Patient says she was previously on 50 mg/100 mg ?? 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 Today's status: Patient was reportedly asking her daughter to sneak in a vape pen. Increased hernicotine patch to help reduce cravings. Dysphagia: Advanced to a mechanical diet. Patient says that 1 of her dentures was lost while undergoing surgery at the other hospital. Hypokalemia: Continue to trend and replete as needed. Lab Results Component Value Date K 3.0 (L) 10/02/2021 Today's status: Potassium 3.0, repleted Hypomagnesemia: Trend and replete as needed. Lab Results Component Value Date MG 1.7 (L) 10/02/2021 MG 1.2 (L) 10/01/2021 Today's status: Magnesium 1.7, repleted IV CHRONIC: Hypertension: Monitor BPs, reintroduce medications as needed Depression and anxiety: Increased Seroquel and resumed Paxil on 10/02 Insomnia: She has a history of chronic use of Ambien (but trying to avoid benzodiazepines); Discussed with Psychiatry on 10/02, increased Seroquel to 100 mg qPM (and can consider increasing further to150 mg) Class 1 obesity: Body mass index is 30.3 kg/m??., complicates all aspects of care RESOLVED: Ileus: Seen on KUB 09/25, resolved with NG decompression KUB negative on 10/01 Medications: Scheduled: enoxaparin, 40 mg, Subcutaneous, Daily with dinner famotidine, 20 mg, Oral, BID folic acid, 1 mg, Oral, Daily insulin regular, 0-5 Units, Subcutaneous, q6h SUKHJINDER lisinopril, 10 mg, Oral, Daily melatonin, 6 mg, Oral, Nightly micafungin, 100 mg, Intravenous, q24h mineral oil-hydrophilic petrolatum, 1 application, Topical, BID nicotine, 1 patch, Transdermal, Daily [START ON 10/03/2021] PARoxetine, 20 mg, Oral, Daily QUEtiapine, 100 mg, Oral, Nightly thiamine, 100 mg, Oral, Daily Continuous: As needed: acetaminophen, 650 mg, q4h PRN alteplase, 2 mg, PRN calcium carbonate, 500 mg, 4x daily PRN dextrose, 12.5 g, q15 min PRN Or dextrose 10 %, 12.5 g, q15 min PRN Or glucose, 15 g, q15 min PRN dextrose, 25 g, q15 min PRN Or dextrose 10 %, 25 g, q15 min PRN Or glucose, 30 g, q15 min PRN glucagon (human recombinant), 1 mg, q15 min PRN glucose, 15 g, Once PRN ondansetron, 4 mg, q6h PRN sodium chloride, 3 mL, PRN traMADol, 50 mg, q6h PRN Labs (in last 24 hours): CBC: Lab Results Component Value Date WBC 11.99 (H) 10/02/2021 HGB 8.5 (L) 10/02/2021 HCT 27.4 (L) 10/02/2021 PLT 543 (H) 10/02/2021 MCV 105 (H) 10/02/2021 MCH 32.6 (H) 10/02/2021 MCHC 31.0 10/02/2021 RDW 23.1 (H) 10/02/2021 NRBC 0.0 10/02/2021 Differential: Lab Results Component Value Date WBC 11.99 (H) 10/02/2021 NEUTOPHILPCT 64.0 10/02/2021 LYMPHOPCT 19.0 10/02/2021 MONOPCT 8.0 10/02/2021 EOSPCT 7.0 10/02/2021 NEUTROABS 7.68 (H) 10/02/2021 Coagulation: No results found for: INR, PT, PTT, CLFGN Renal: Lab Results Component Value Date NA 134 (L) 10/02/2021 K 3.0 (L) 10/02/2021 CL 96 (L) 10/02/2021 CO2 28 10/02/2021 BUN 6 (L) 10/02/2021 CREATININE 0.64 10/02/2021 GLUCOSE 93 10/02/2021 CALCIUM 8.4 (L) 10/02/2021 MG 1.7 (L) 10/02/2021 PHOS 4.3 10/02/2021 Liver: No results found for: AST, ALT, ALPHO, BILITOT, BILIDIR Glucose: Lab Results Component Value Date PGLU 118 (H) 10/02/2021 PGLU 91 10/01/2021 PGLU 81 10/01/2021 Lab Results Component Value Date HGBA1C 4.9 09/23/2021 Diet Adult diet Diet texture: Mechanical soft DVT prophylaxis Lovenox prophylaxis Anticipated discharge to Acute rehab Patient requested [facility] (daughter is director of therapy department) Family would prefer for her to go to [facility] Anticipated discharge needs Pending improvement Follow up PCP Alcohol treatment Liver clinic No future appointments. Code status Full Code Family contact Extended Emergency Contact Information Primary Emergency Contact: Tati Senior Mobile Relation: Daughter Secondary Emergency Contact: Herminia Monsalve Mobile Relation: Mother COVID status Positive on 09/23/2021 Kemar Healy MD Department of Internal Medicine Division of Hospital Medicine 10/02/2021 * Progress Notes - Rodlofo Fuentes, PT - 10/02/2021 8:57 AM EST Physical Therapy Treatment Patient Name: Rosendo Roach Today's Date: 10/02/2021 PT Discharge Recommendations: Acute rehab Equipment Recommended: Defer to facility Subjective Patient reported being frustrated about hospital stay and not having her contacts. Participants in Care Family/Caregiver Present: No Presentation Oxygen Therapy: None (Room air) Lines and Tubes: Intravenous access,Telemetry Pre-Session: Supine,Head of bed elevated,Lines intact Post-Session: Sitting in chair,RN notified,Lines intact,Chair alarm,Call light in reach Precautions None Objective Pain Pain Assessment Pain Assessment: 0-10 Pain Score: (patient reported abdominal pain but did not rate when asked) Delirium Screening May Agitation Sedation Scale (RASS): Alert and calm Confusion Assessment Method-ICU (CAM-ICU/PCAM-ICU) Feature 1: Acute Onset or Fluctuating Course: Negative Feature 2: Inattention: Negative Feature 3: Altered Level of Consciousness: Negative Feature 4: Disorganized Thinking: Positive Overall CAM-ICU/PCAM-ICU: Negative Bed Mobility Bed Mobility Exam: Scooting/Bridging Level of [place]: Contact guard Physical/Nonphysical Assist: Verbal Cues Bed Mobility Exam: Supine to Sit Level of [place]: Minimum assist (75% patient's effort) Physical/Nonphysical Assist: Verbal Cues Transfers Transfer Exam: Sit to stand Level of [place]: Minimum assist (75% patient's effort) Physical/Nonphysical Assist: Verbal Cues,1 person + 1 person to manage equipment Assistive Device: Hand held assist Transfer Exam: Stand to Sit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 Glu 88 K 3.2 (L) Co2 29 Cr 0.69 Ca 7.9 (L) iCa ?? Mg 1.2 (L), Phos 3.4 (K+ is low) Lactate ?? LFT AST ?? AlkPhos ?? T Prot ?? ALK ?? Bili ?? Alb ?? D.Bili ?? Lab Results Component Value Date HGBA1C 4.9 09/23/2021 Anthropometrics: Height: 162.6 cm (5' 4.02 ) Weight: 80.1 kg (176 lb 9.4 oz) BMI (Calculated): 30.3 Weight Evaluation: Obese-Class 1 (BMI 30-34.9) Arthur Body Weight (kg): 54.5 Percent Arthur Body Weight: 153 Adjusted Body Weight (kg): 61.8 Wt Readings from Last 12 Encounters: 09/28/21 80.1 kg (176 lb 9.4 oz) 02/26/21 70.2 kg (154 lb 12.2 oz) -Weight gain of 9;9 Kg in 7 MO. Estimated Needs: Kcal/ K-30 Kcal Provided: 5526-9438 Kcal Needs Based On: Adjusted weight Gm Protein/ Kg : 1.2-1.5 Protein Provided: 74-93 Protein Needs Based On: Adjusted weight Fluid Provided: per MD Current Nutrition Intake: Diet order; clears. Supplements; Na Diet Experience and Nutrition History: Diet Education Provided: Will monitor Pertinent home medications: Noted. Nutrition Focused Physical Exam: Unable to Complete Exam: Isolation precautions Physical exam performed on (date): Assessment of Malnutrition: Unable to Complete Exam: Isolation precautions Nutrition Problem: Inadequate oral intake related to respiratory failure as evidenced by NPO diet order, mechanical ventilation Status of Nutrition Diagnosis: Resolved Altered GI function related ileus as evidenced by vomiting, distended abdomen, NPO, now on clears. Status of Nutrition Diagnosis: Improvement shown Nutrition Interventions and Recommendations: --Cont with Clears. Will add Boost Breeze TID. Rec Advance as tolerated to GI soft diet when appropriate. -- Monitor for si/sx of dysphagia if noted rec npo and eval. -- If tf's desired recommend Peptamen 1.5. Begin at low rate of 20 ml/hr. Advance TF slowly as tolerated to eventual goal of 50 ml/hr (1100 ml/day) provides 1650 kcal, 75g protein, 207g CHO, 62g fat,0g fiber, 845 ml water and 110% RDIs vit/min. --Free water flushes per MD/team --MVI with minerals. --Record PO intake. Nutrition Monitoring and Goals: -- Nutrition to start (met) -- Tube feeding intake >80% prescribed by follow up (not appropriate). -- Patient will consume >50% of most meals (new). -- Monitoring nutritional status and interventions, following per department acuity. (ongoing) Acuity Level: [address] * Care Plan - Sindy Stevens RN - 09/30/2021 7:30 PM EST Problem: Adult Inpatient Plan of Care Goal: Plan of Care Review Outcome: Ongoing, Progressing Flowsheets (Taken 09/30/2021 1930) Progress: no change Plan of Care Reviewed With: patient Goal: Patient-Specific Goal (Individualized) Outcome: Ongoing, Progressing Flowsheets (Taken 09/29/20212029 by Manda Askew) Patient-Specific Goals (Include Timeframe): patient's pain will be tolerable, patient will get adequate rest and compliant with q2 turn Individualized Care Needs: manage pain, monitor for any AMS changes, monitor resp status Anxieties, Fears or Concerns: having pain Goal: Absence of Hospital-Acquired Illness or Injury Outcome: Ongoing, Progressing Goal: Optimal Comfort and Wellbeing Outcome: Ongoing, Progressing Goal: Readiness for Transition of Care Outcome: Ongoing, Progressing Problem: Restraint, Nonbehavioral (Nonviolent) Goal: Discontinuation Criteria Achieved Outcome: Ongoing, Progressing Problem: Device-Related Complication Risk (Mechanical Ventilation, Invasive) Goal: Optimal Device Function Outcome: Ongoing, Progressing Problem: Feeding Intolerance (Enteral Nutrition) Goal: Feeding Tolerance Outcome: Ongoing, Progressing Problem: Balance Impairment (Functional Deficit) Goal: Improved Balance and Postural Control Outcome: Ongoing, Progressing Problem: Cognitive Impairment (Functional Deficit) Goal: Optimal Functional [place] Outcome: Ongoing, Progressing Problem: Coordination Impairment (Functional Deficit) Goal: Optimal Coordination Outcome: Ongoing, Progressing Problem: Muscle Strength Impairment (Functional Deficit) Goal: Improved Muscle Strength Outcome: Ongoing, Progressing * Progress Notes - Hiral Infante MD - 09/30/2021 11:32 AM EST [facility] Medicine Progress Note (09/30/2021) Patient Summary Rosendo Roach is a 46 y.o. female with PMH significant for alcohol dependence, DTs with seizure activity, HTN, depression and PARAG who was undergoing inpatient EtOH detox when she began to have altered mental status and was transferred to a medical floor Sep 10. ??She was treated with benzos and l actulose and was worked up for infectious process. Imaging showed acute ascending colitis, peritonitis and pneumoperitoneum. ??She underwent an ex-lapDec and a left tubo-ovarian abscess was noted which was evacuated and washed out. ??She developed septic shock requiring vasopressors for a short period. ??She was also started on meropenem, micafungin, cefepime and metronidazole. ??The ovarian abscess grew Nicanor glabrata, Enterobacter, and E coli. ??She remained intubated after surgery and imaging showed bilateral pneumonia - respiratory PCR was negative for flu and COVID-19. She failed an SBT and, despite, decreased sedation, would not follow commands. ??She was persistently febrile and repeat imaging demonstrated colon wall thickening, persistent pneumonia, pleural effusions and LLL collapse. ??It was felt that the patient needed increased care from multiple providers and she was transferred to [facility] ICU 09/23. ??On arrival the patient was found to be incidentally COVID19 positive and was transferred to [facility] on 09/24. On 09/25 the patient was extubated to [place]. Post extubation the patient was found to have increasing abdominal distension and a KUB was obtained that found an early ileus. An NG was placed for decompression,started on D 10, and made NPO. A repeat CT abd/pelvis on 09/27 was obtained that showed resolution of ileus and a hematoma along laparotomy site measure 4 x 3 cm. On 09/28, the patient's Betaglucan from the OSH resulted >500, the patient was restarted on Micafungin, and a repeat Betaglucan obtained (pending). On 09/29, the patient was deemed medically stable and appropriate for progressive care. ?? Patient transferred from ICU team to [facility] 10 on 09/29/2021. Overnight Events None Subjective Patient seen and examined during morning rounds. Reports mild suprapubic pressure and pain. Tolerating NG but wishes to eat regular food'. Denies N/V or abdominal distention. Reports she was unable to sleep all night. She had chronic insomnia and requesting Ambien given this morning so she can sleep. Did not elaborate when I inquired how much she drinks. Reports she wantsto go to [facility] where her daughter is Dir. of Therapy dept, so she can be close to her family. She has 6 children and shares custody with her ex . Currently they are being taken care of byher ex- . 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 Review of Systems GEN: Denies fevers, chills. Denies fatigue. Tolerating diet HEENT: Kyle sore throat or trouble swallowing. Denies Headache RESP: Denies cough, shortness of breath or pleuritic chest pain. CV: Denies chest pain or palpitations. GI: Denies abdominal pain,nausea, vomiting, or diarrhea. : Denies flank pain or suprapubic pain. SKIN: Denies rashes or itching PSYCH: Denies hallucination or confusion Objective Temp: [36.6 ??C (97.8 ??F)-37.4 ??C (99.3 ??F)] 36.9 ??C (98.4 ??F) Heart Rate: [100-120] 100 Resp: [17-24] 17 BP: (103-146)/(63-85) 121/71 SpO2: [89 %-99 %] 96 % Intake/Output Summary (Last 24 hours) at 09/30/2021 1132 Last data filed at 09/30/2021 0800 Gross per 24 hour Intake 1872 ml Output 700 ml Net 1172 ml General Survey: A ill appearing female lying comfortably in bed. In no acute distress. Skin: Color good. Skin warm and moist. No rashes appreciated. HEENT: Scleras white, conjunctivae pink. Mucous membranes moist. Hearing intact CVS: Normal S1, S2. No murmurs. PMI at 5th ICS, MCL. No heaves/thrills. Chest: Symmetric with good expansion. Non labored. BS clear bilaterally Abdomen: Soft normoactive BS. Midline incision covered by Covaderm. No mass and nontender. No guarding or rigidity PVS: Extremities warm without edema. Distal pulses are 2+ and symmetric. Neuro: Alert, relaxed, and cooperative. Moving both arms and legs equally. Psych: good eye contact. Conversant. Mood pleasant Recent Labs Lab Results Component Value Date WBC 14.95 (H) 09/29/2021 HGB 7.7 (L) 09/29/2021 HCT 25.8 (L) 09/29/2021 MCV 110 (H) 09/29/2021 PLT 573 (H) 09/29/2021 Lab Results Component Value Date BUN 11 09/29/2021 Lab Results Component Value Date CREATININE 0.71 09/29/2021 Lab Results Component Value Date NA 146 (H) 09/29/2021 K 3.0 (L) 09/29/2021 CL 107 09/29/2021 CO2 32 (H) 09/29/2021 Recent Imaging Results I have reviewed and discussed the results of new imaging studies done within the last 24 hours and they are significant for === 09/23/21 === CT ABDOMEN PELVIS W IV CONTRAST - Narrative - Exam/Procedure: CT ABDOMEN PELVIS W IV CONTRAST ordered by BLANCO GARCIA, [id number] CLINICAL INDICATION: Abdominal abscess/infection suspected TECHNIQUE: Multiple axial CT images were obtained from lung bases through pubic symphysis following administration of IV contrast, Omnipaque 300, 100 mL. Delayed images of abdomen and kidneys also obtained. Reformatted images in the coronal and sagittal planes were generated from the axial data set to facilitate diagnostic accuracy. Total DLP (Dose-Length Product): 1422.66 mGy.cm. Please note: The reported value represents the total of one or more individual components during the CT acquisition on this date and at this time, andas such, the same value may appear in more than one CT report depending on the interpreting/reporting physicians. COMPARISON: CT from September 23, 2021 FINDINGS: Lower Chest: There are [id number] bilateral pleural effusions. There is left lower lobe atelectasis. Patchy bibasal opacities are present. Solid Abdominal Organs: Liver demonstrates fatty change. No discrete suspicious focal liver lesions. Decompressed somewhat edematous gallbladder. Unremarkable pancreas and spleen. Unremarkable adrenal glands. No hydronephrosis. Small bilateral renal cysts are present. Punctate calculi are present bilaterally. GI Tract/Mesentery/Peritoneum: Large and small bowel appear normal in caliber. No pneumatosis. Mesenteric edema is present.. Pelvic Viscera: Decompressed, catheterized urinary bladder. No pelvic mass. Lymph Nodes/Vasculature: Aortoiliac vasculature is normal in caliber. No lymphadenopathy Free Fluid:There is a small to moderate amount of ascites. Musculoskeletal and Body Wall:No clearly aggressive bone lesions. Small hematoma along the laparotomy incision - Impression - There is a small to moderate amount of ascites. No discrete fluid collections to suggest abscess.. No evidence of bowel obstruction. Hematoma along the laparotomy incision, measuring roughly 4 x 3 cm in the axial plane Patchy bibasal lung opacities Signed by Steve Hdz on 09/27/2021 10:46 AM Assessment and Plan Acute hypoxic respiratory failure requiring supplemental oxygen felt likely secondary to septic shock with COVID-19, as prior swab at OSH were -ve for COVID - Incidentally found to be COVID+ on admission to [facility] CT chest: bilateral pleural effusions, LLL atelectasis, Bilateral GGO - Extubated to [place] on 09/25 PLAN: -per Pulm incidental COVID+, if clinically worsening respiratory status may consider starting Dexamethasone otherwise hypoxia likely ongoing due to recent sepsis. - Currently on supplemental oxygen at 1 lit/min, continue [place] to keep SPO2 > 92% Sepsis with Septic shock due Tubo-ovarian Abscess s/p drainage & washout - Patient initially with Tubo-ovarian abscess, s/p drainage/washout/colostomy on 09/12. Intraoperative cultures + for C. Glabrata, E. Coli and Enterobacter. - 09/16: Treated with Meropenem, flagyl, and micafungin, required vasopressors at OSH - 09/23: CT chest: bilateral pleural effusions, LLL atelectasis, Bilateral GGO - CT abd/pelvis: Diffuse hepatic steatosis. Morphologic changes of the liver suggesting underlying parenchymal disease. - Completed 10 days of Cefepime and Micafungin (stopped 09/26) - off pressors at OSH - Betaglucan BAL from OSH > 500 from 09/23 - 09/27 CT A/P: There is a small to moderate amount of ascites. No discrete fluid collections to suggest abscess.. No evidence of bowel obstruction. ?? Hematoma along the laparotomy incision, measuring roughly 4 x 3 cm in the axial plane. PLAN: - Continue to monitor - Repeat serum Beta Glucan from 09/28 Still pending - continue Micafungin, duration TBD Acute Encephalopathy Suspect hyperactive delirium - Etiology: likely multifactorial: metabolic, sepsis, sedation with underlying Cirrhosis - CT head: negative for acute abnormality - patient with confusion and restlessness Plan: - Hold benzodiazepines if able - Given Thiamine load 500 mg IV Q 8 hrs for 3 days, then daily; folate 1 mg daily -09/29 --increase Seroquel to 50 mg at bedtime AUD (POA) - had hx of admission to behavioral [facility] for inpatient detox - has Hx of alcohol withdrawal syndrome including seizure activity ADDENDUM: Talked to daughter, she said Rosendo drinks heavily and she has not seen her sober for a long time . Her habits have worsened in last 5 years. Daughter actually doesn't visit her often due to her ETOH situation as she has a 4 year old and does not want the interaction or influence on her child. Daughter is unaware of how much she drinks daily. She does confabulate often per daughter observation and is an unreliable historian . In Rosendo's phone contact, daughter ( Tati) did find contact information for [facility], but is unsure if Rosendo follows anyone there. Rosendo was in [facility] (09/10/2021) prior to her recent hospitalization. Daughter is unsure if she uses any other street drugs. Plan: ??- Will continue with Thiamine/Folate -ACES consult tomorrow. 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 Sees a counselor ([facility]) Ileus - resolved - Tube feeds on hold due to ileus; - N/V overnight 09/27 with NG to LWS with increased output overnight - KUB and CTA/P 09/27 without evidence obstruction or ileus - 09/29-->NG output 700 ml / 24 hr Decrease from 1800 ml the day before - Had 4 loose brown mod to large BM in last 24 hr Plan: - Currently will continue with clear liquid diet - continue D5 at 75 ml/hr - Match NG output with D5 - Repeat KUB prior to advancing diet ?? Hypernatremia - improving - Na 146 on admission PLAN: -On D5 at 75 ml/hr recheck with AM labs ?? Suspected Protein Calorie Malnutrition (POA) - previously on TPN at OSH, unclear why PLAN: - Passed Dysphagia screen: clear liquid diet ordered in ICU due to ileus ?Hypomagnesemia; Replace and monitor as needed. Sinus Tachycardia Resolved Issues -Septic Shock: Vasopressors stopped at OSH prior to transfer Chronic Medical Conditions 1. HTN; hold any home medications at this time and utilize prn medication for BP control 2. Obesity Class I (BMI 30-34.9) 3. Chronic Insomnia- Chronic Ambien user 4. Depression (POA) 5. General Anxiety disorder (POA) 6. Cirrhosis with EtOH Hepatitis - liver function were improving at OSH - CT abd/pelvis: Diffuse hepatic steatosis. Morphologic changes of the liver suggesting underlying parenchymal disease. - AST 53, ALT 20 PLAN: - consider Hepatology follow up as outpatient Diet/Fluids: CLD/D5 at 75 ml/hr Tubes/Lines/Catheters: NG/PIV DVT Prophylaxis: SCD's + SQH Disposition/Time: Ac Rehab/45, family would like her to go to [facility] Follow Up: Hepatology Code Status: Full Code Total 45 minutes spent in face-face encounter, counseling and coordinating care. Counseling and/or coordinating care dominated (more than 50%) the encounter. Discussion included prognosis, differential diagnosis, risks, benefits of treatment, instructions, compliance, risk reduction or discussion with another health care provider. Hiral Infante MD Division of Hospital Medicine [phone] or secure message 09/30/2021 * Care Plan - Manda Askew - 09/29/2021 11:22 PM EST Problem: Adult Inpatient Plan of Care Goal: Plan of Care Review Outcome: Ongoing, Progressing Goal: Absence of Hospital-Acquired Illness or Injury Outcome: Ongoing, Progressing Problem: Cognitive Impairment (Functional Deficit) Goal: Optimal Functional [place] Outcome: Ongoing, Progressing Problem: Muscle Strength Impairment (Functional Deficit) Goal: Improved Muscle Strength Outcome: Ongoing, Progressing * Progress Notes - Hiral Infante MD - 09/29/2021 3:59 PM EST Hospital Medicine Progress Note (09/29/2021) Patient Summary Rosendo Roach is a 46 y.o. female with PMH significant for alcohol dependence, DTs with seizure activity, HTN, depression and PARAG who was undergoing inpatient EtOH detox when she began to have altered mental status and was transferred to a medical floor Sep 10. ??She was treated with benzos and l actulose and was worked up for infectious process. Imaging showed acute ascending colitis, peritonitis and pneumoperitoneum. ??She underwent an ex-lapDec and a left tubo-ovarian abscess was noted which was evacuated and washed out. ??She developed septic shock requiring vasopressors for a short period. ??She was also started on meropenem, micafungin, cefepime and metronidazole. ??The ovarian abscess grew Niacnor glabrata, Enterobacter, and E coli. ?? She remained intubated after surgery and imaging showed bilateral pneumonia - respiratory PCR was negative for flu and COVID-19. She failed an SBT and, despite, decreased sedation, would not follow commands. ??She was persistently febrile and repeat imaging demonstrated colon wall thickening, persistent pneumonia, pleural effusions and LLL collapse. ??It was felt that the patient needed increasedcare from multiple providers and she was transferred to [facility] ICU 09/23. ??On arrival the patient wasfound to be incidentally COVID19 positive and [facility] On 09/25 thepatient was extubated to [place]. Post extubation the patient was found to have increasing abdominal dist ension and a KUB was obtained that found an early ileus. An NG was placed for decompression, started started on D10, and made NPO. A repeat CT abd/pelvis on 09/27 was obtained that showed resolution of ileus and a hematoma along lapartomy site measure 4 x 3 cm. On 09/28, the patient's Betaglucan fromthe OSH resulted >500, the patient was restarted on Micafungin, and a repeat Betaglucan was obtai tatiana (pending). On 09/29, the patient was deemed medically stable and appropriate for progressive care. ?? Patient is being transferred from ICU team to [facility] 10. Overnight Events None Subjective Patient seen and examined during morning rounds. Awaiting room on medical floor. Review of Systems GEN: Denies fevers, chills. Denies fatigue. Tolerating diet HEENT: Kyle sore throat or trouble swallowing. Denies Headache RESP: Denies cough, shortness of breath or pleuritic chest pain. CV: Denies chest pain or palpitations. GI: Denies abdominal pain,nausea, vomiting, or diarrhea. : Denies flank pain or suprapubic pain. SKIN: Denies rashes or itching PSYCH: Denies hallucination or confusion Objective Temp: [36.9 ??C (98.4 ??F)-37.7 ??C (99.9 ??F)] 37.2 ??C (98.9 ??F) Heart Rate: [93-116] 104 Resp: [15-24] 22 BP: (111-154)/(55-99) 143/79 SpO2: [90 %-100 %] 90 % Intake/Output Summary (Last 24 hours) at 09/29/2021 1559 Last data filed at 09/29/2021 1400 Gross per 24 hour Intake 2877 ml Output 2750 ml Net 127 ml General Survey: A ill appearing female lying comfortably in bed. In no acute distress. Skin: Color good. Skin warm and moist. No rashes appreciated. HEENT: Scleras white, conjunctivae pink. Mucous membranes moist. Hearing intact CVS: Normal S1, S2. No murmurs. PMI at 5th ICS, MCL. No heaves/thrills. Chest: Symmetric with good expansion. Non labored. BS clear bilaterally Abdomen: Soft normoactive BS. Midline incision covered by Covaderm. No mass and nontender. No guarding or rigidity PVS: Extremities warm without edema. Distal pulses are 2+ and symmetric. Neuro: Alert, relaxed, and cooperative. Moving both arms and legs equally. Psych: good eye contact. Conversant. Mood pleasant Recent Labs Lab Results Component Value Date WBC 14.95 (H) 09/29/2021 HGB 7.7 (L) 09/29/2021 HCT 25.8 (L) 09/29/2021 MCV 110 (H) 09/29/2021 PLT 573 (H) 09/29/2021 Lab Results Component Value Date BUN 11 09/29/2021 Lab Results Component Value Date CREATININE 0.71 09/29/2021 Lab Results Component Value Date NA 146 (H) 09/29/2021 K 3.0 (L) 09/29/2021 CL 107 09/29/2021 CO2 32 (H) 09/29/2021 Recent Imaging Results I have reviewed and discussed the results of new imaging studies done within the last 24 hours and they are significant for === 09/23/21 === CT ABDOMEN PELVIS W IV CONTRAST - Narrative - Exam/Procedure: CT ABDOMEN PELVIS W IV CONTRAST ordered by BLANCO GARCIA, [id number] CLINICAL INDICATION: Abdominal abscess/infection suspected TECHNIQUE: Multiple axial CT images were obtained from lung bases through pubic symphysis following administration of IV contrast, Omnipaque 300, 100 mL. Delayed images of abdomen and kidneys also obtained. Reformatted images in the coronal and sagittal planes were generated from the axial data set to facilitate diagnostic accuracy. Total DLP (Dose-Length Product): 1422.66 mGy.cm. Please note: The reported value represents the total of one or more individual components during the CT acquisition on this date and at this time, andas such, the same value may appear in more than one CT report depending on the interpreting/reporting physicians. COMPARISON: CT from September 23, 2021 FINDINGS: Lower Chest: There are [id number] bilateral pleural effusions. There is left lower lobe atelectasis. Patchy bibasal opacities are present. Solid Abdominal Organs: Liver demonstrates fatty change. No discrete suspicious focal liver lesions. Decompressed somewhat edematous gallbladder. Unremarkable pancreas and spleen. Unremarkable adrenal glands. No hydronephrosis. Small bilateral renal cysts are present. Punctate calculi are present bilaterally. GI Tract/Mesentery/Peritoneum: Large and small bowel appear normal in caliber. No pneumatosis. Mesenteric edema is present.. Pelvic Viscera: Decompressed, catheterized urinary bladder. No pelvic mass. Lymph Nodes/Vasculature: Aortoiliac vasculature is normal in caliber. No lymphadenopathy Free Fluid:There is a small to moderate amount of ascites. Musculoskeletal and Body Wall:No clearly aggressive bone lesions. Small hematoma along the laparotomy incision - Impression - There is a small to moderate amount of ascites. No discrete fluid collections to suggest abscess.. No evidence of bowel obstruction. Hematoma along the laparotomy incision, measuring roughly 4 x 3 cm in the axial plane Patchy bibasal lung opacities Signed by Steve Hdz on 09/27/2021 10:46 AM Assessment and Plan Acute hypoxic respiratory failure requiring supplemental oxygen felt likely secondary to septic shock with COVID-19, as prior swab at OSH were -ve for COVID - Incidentally found to be COVID+ on admission to [facility] CT chest: bilateral pleural effusions, LLL atelectasis, Bilateral GGO - Extubated to [place] on 09/25 PLAN: -per Pulm incidentally COVID+, if clinically worsening respiratory status may consider starting Dexamethasone - Continue NC to keep SPO2 > 92% Acute Encephalopathy Suspect hyperactive delirium - Etiology: likely multifactorial: metabolic, sepsis, sedation with underlying Cirrhosis - CT head: negative for acute abnormality - patient with confusion and restlessness Plan: - Hold benzodiazepines if able - Given Thiamine load 500 mg IV Q 8 hrs for 3 days, then daily; folate 1mg daily -09/29 --increase Seroquel to 50mg at bedtime Sepsis with Septic shock due Tubo-ovarian Abscess s/p drainage & washout - Patient initially with Tubo-ovarian abscess, s/p drainage/washout/colostomy on 09/12. Intraoperative cultures + for C. Glabrata, E. Coli and Enterbacter. - 09/16: Treated with Meropenem, flagyl, and micafungin, required vasopressors at OSH - 09/23: CT chest: bilateral pleural effusions, LLL atelectasis, Bilateral GGO - CT abd/pelvis: Diffuse hepatic steatosis. Morphologic changes of the liver suggesting underlying parenchymal disease. - Completed 10 days of Cefepime and Micafungin (stopped 09/26) - off pressors at OSH - Betaglucan BAL from OSH > 500 from 09/23 - 09/27 CT A/P: There is a small to moderate amount of ascites. No discrete fluid collections to suggest abscess.. No evidence of bowel obstruction. ?? Hematoma along the laparotomy incision, measuring roughly 4 x 3 cm in the axial plane. PLAN: - Continue to monitor - follow repeat serum Betaglucan from 09/28 - continue Micafungin, duration TBD Ileus - resolved - Hold tube feeds; - N/V overnight 09/27 with NG to LWS with increased output overnight - KUB and CTA/P 09/27 without evidence obstruction or ileus Plan: - Clear liquid diet - continue D5 at 75ml/hr - Match NG output with D5 ?? Cirrhosis EtOH Hepatitis - liver function improving at OSH; CT showed fatty infiltration of liver and severely distended gallbladder with no stones noted - CT abd/pelvis: Diffuse hepatic steatosis. Morphologic changes of the liver suggesting underlying parenchymal disease. - ammonia 21 on admission PLAN: - consider Hepatology consult when medically appropriate - having multiple liquid BMs, hold lactulose at this time ?? HTN - hold any home medications at this time - prn medication for BP control ?? Hypernatremia - improving - Na 146 on admission PLAN: -On D5 at 75ml/hr recheck with AM labs ?? Depression (POA) General Anxiety disorder (POA) - continue to monitor - Consider low dose Xanax if Seroquel is not helpful Protein Calorie Malnutrition (POA) - previously on TPN at OSH, unclear why PLAN: - Passed Dysphagia: clear liquid diet ordered in iCU ?? EtOH abuse (POA) - had been in behavioral health for inpatient detox - has previously developed alcohol withdrawal syndrome including seizure activity Plan: ??- Thiamine/Folate ?? Resolved Issues -Shock: Vasopressors stopped at OSH prior to transfer Chronic Medical Conditions 1. Diet/Fluids: CLD/D5 at 75ml/hr Tubes/Lines/Catheters: NG/PIV DVT Prophylaxis: SCD's + SQH Disposition/Time: Unclear/35 Code Status: Full Code Total 35 minutes spent in face-face encounter, counseling and coordinating care. Counseling and/or coordinating care dominated (more than 50%) the encounter. Discussion included prognosis, differential diagnosis, risks, benefits of treatment, instructions, compliance, risk reduction or discussion with another health care provider. Hiral Infante MD Division of [facility] Medicine [phone] or secure message 09/29/2021 * Progress Notes - Mark Smith NP - 09/29/2021 10:11 AM EST ICU Transfer Note Summary of Hospital Course: (Include HPI and ICU course): Rosendo Roach is a 46 y.o. female with a PMH significant for alcohol dependence, DTs with seizure activity, HTN, depression and PARAG who was undergoing inpatient EtOH detox when she began to have altered mental status and was transferred to a medical floor Sep 10. She was treated with benzos and l actulose and was worked up for infectious process. Imaging showed acute ascending colitis, peritonitis and pneumoperitoneum. She underwent an ex-lap Sep 12 and a left tubo-ovarian abscess was noted which was evacuated and washed out. She developed septic shock requiring vasopressors for a short period. She was also started on meropenem, micafungin,cefepime and metronidazole. The ovarian abscess grew Nicanor glabrata, Enterobacter, and E coli. She remained intubated after surgery and imaging showed bilateral pneumonia - respiratory PCR was negative for flu and COVID-19. She failed an SBT and, despite, decreased sedation, would not follow commands. She was persistently febrile and repeat imaging demonstrated colon wall thickening, persistent pneumonia, pleural effusions and LLL collapse. It was felt that the patient needed increased care from multiple providers and she was transferred to [facility] ICU 09/23. On arrival the patient was foundto be incidentally COVID19 positive and was transferred to [place] [facility] on 09/24. On 09/25 the patient was extubated to [place]. Post extubation the patient was found to have increasing abdominal distension and a KUB was obtained that found an early ileus. An NG was placed for decompression, started started on D10, and made NPO. A repeat CT abd/pelvis on 09/27 was obtained that showed resolution of ileus and a hematoma along lapartomy site measure 4 x 3 cm. On 09/28, the patient's Betaglucan from the OSH resulted >500, the patient was restarted on Micafungin, and a repeat Betaglucan was obtained (pending). On 09/29, the patient was deemed medically stable and appropriate for progressive care. Patient is being transferred from ICU team to [place] [id number].. Major Active Problems: Currently active problems from ICU admission with plan and follow up (include antimicrobial plan, duration): Acute hypoxic respiratory failure requiring supplemental oxygen (POA) COVID-19 + (POA) - Incidentally found to be COVID+ on admission to [facility] - Likely secondary to septic shock with presumed Pneumonia - 09/23: CT chest: bilateral pleural effusions, LLL atelectasis, Bilateral GGO - Extubated to [place] on 09/25 PLAN: - Abx as outlined below - incidentally COVID+, if clinically worsening respiratory status consider starting Dexamethasone - Supportive care - Continue NC to keep SPO2 > 92% ?? Acute Encephalopathy (POA) Hyperactive Delirium - Etiology: likely multifactorial: metabolic, sepsis, sedation with underlying Cirrhosis - CT head: negative for acute abnormality - TSH: 9.74, T4: 0.7, ammonia 21 PLAN: - Continue Thiamine load 500 mg IV Q 8 hrs for 3 days, then daily; folate 1mg daily - increase Seroquel to 50mg qHS ?? Sepsis (POA) Leukocytosis Tubo-ovarian Abscess s/p drainage & washout (POA) - Patient initially with Tubo-ovarian abscess, s/p drainage/washout/colostomy on 09/12. Intraoperative cultures + for C. Glabrata, E. Coli and Enterbacter. - 09/16: Treated with Meropenem, flagyl, and micafungin, required vasopressors at OSH - 09/23: CT chest: bilateral pleural effusions, LLL atelectasis, Bilateral GGO - CT abd/pelvis: Diffuse hepatic steatosis. Morphologic changes of the liver suggesting underlying parenchymal disease. - Completed 10 days of Cefepime and Micafungin (stopped 09/26) - N/V overnight - Betaglucan BAL from OSH > 500 from 09/23 - 09/27 CT A/P: There is a small to moderate amount of ascites. No discrete fluid collections to suggest abscess.. No evidence of bowel obstruction. ?? Hematoma along the laparotomy incision, measuring roughly 4 x 3 cm in the axial plane. - Lipase 128 -> 139 PLAN: - Continue to monitor - follow repeat serum Betaglucan from 09/28 - continue Micafungin, duration TBD Cirrhosis (POA) EtOH Hepatitis (POA) - liver function improving at OSH; CT showed fatty infiltration of liver and severely distended gallbladder with no stones noted - CT abd/pelvis: Diffuse hepatic steatosis. Morphologic changes of the liver suggesting underlying parenchymal disease. - ammonia 21 on admission PLAN: - monitor - consider Hepatology consult when medically appropriate - having multiple liquid BMs, hold lactulose at this time Ileus - resolved - Hold tube feeds; - NG to LWS with increased output overnight - N/V overnight 09/27 - KUB and CTA/P 09/27 without evidence obstruction or ileus Plan: - Clear liquid diet - continue D5 at 75ml/hr - Match NG output with D5 ?? Depression (POA) General Anxiety disorder (POA) - continue to monitor - Consider low dose Xanax if Seroquel is not helpful ?? HTN (POA) - hold any home medications at this time - prn medication for BP control ?? Hypernatremia (POA) - improving - Na 148 on admission PLAN: - recheck with AM labs ?? Protein Calorie Malnutrition (POA) - previously on TPN at OSH, unclear why - Prealbumin 5.2; albumin 1.6; total protein 6.2 PLAN: - Passed Dysphagia: clear liquid diet ordered ?? EtOH abuse (POA) - had been in behavioral health for inpatient detox - has previously developed alcohol withdrawal syndrome including seizure activity Plan: - Supportive care Delirium - patient with confusion and restlessness - Suspect hyperactive delirium Plan: - Hold benzodiazepines if able - Promote day and night routine - OOBTC as tolerated - increase Seroquel to 50mg qHS Major Resolved Problems: ICU problems that resolved during admission but are important to be aware of: Shock: Vasopressors stopped at OSH prior to transfer Antibiotics being administered: Abx micafungin for indication of tubo-ovarian abscess, (betaglucan >500), stop date TBD Patient was intubated during this stay. Date of extubation 09/25 Patient was in shock during this stay. Off vasopressors at OSH. Other Follow up items (Studies,consults, labs, imaging): Betaglucan from 09/28 Patient's condition at Transfer: Patient's oxygen requirement is currently 2L NC and is not expected to need oxygen at DC (should include both device and amount. If patient requires new or changed Bipap/CPAP, include here) Patient does not have a morales Patient has had delirium Patient does require telemetry PT is following patient Patient's current diet is Dietary Orders (From admission, onward) Start Ordered 09/28/21 1026 Adult diet Diet texture: Clear liquid (Adult Diet Panel) Diet effective now Question: Diet texture Answer: Clear liquid 09/28/21 1025 DVT Prophylaxis is subcutaneous heparin Patient Disposition: The current anticipated discharge disposition is Acute Rehab. Handoff information: Adams exam findings at the time of transfer are: GENERAL: ??Ill appearing female lying in bed. No acute distress EYES: ??PERRL; anicteric sclerae; moist conjunctivae; no nystagmus or lid-lag HENT: ??Atraumatic, oropharynx clear, moist mucous membranes, no mucosal ulcerations, normal hard and soft palate, NECK: ??Trachea midline, supple neck, no thyromegaly or lymphadenopathy RESP: ??Airway patent, good air movement, respirations non-labored, breath sounds clear to auscultation, no wheezing CARD: RRR; no murmur, rubs, or gallop TELE: Normal sinus rhythm Extremities: No edema, no cyanosis or clubbing; pulses palpable +2 GI:??Midline incision covered by Covaderm;??No organomegaly or masses; abdomen is soft, nontender and nondistended; bowel sounds?? SKIN: Normal temperature, turgor and texture; no rashes, ulcers or subcutaneous nodules : voids NEURO: Awake and following commands, moves all extremities, no focal deficits The patient primary contact is: Tati Senior, daughter. Patient's HCPOA: is same as above I have spoken with and given verbal consent checkout to the primary receiving provider: Hiral Infante MD. * Progress Notes - Jim Calzada MD - 09/28/2021 4:40 PM EST Physician Clarification Please review the following and provide your response below. Is there an associated diagnosis with above BMI? HIM CDI QUERY RESPONSE - BMI: Obesity Class I (BMI 30-34.9) This documentation will become part of the patient's medical record. * Progress Notes - Blanco Garcia APRN - 09/28/2021 12:51 PM EST MICU PROGRESS NOTE Events of past 24 hours: No acute events or issues overnight. Remains hemodynamically stable and afebrile. Patient continuesto have tachycardia and confusion. 1 reported event of emesis overnight. Patient alert and conversational this AM. Still confused about circumstances but alert to person and place. Review of Systems: Unable to obtain a complete 14 point review of systems due to patient status and intubation Last Recorded Vitals Blood pressure 158/74, pulse (!) 112, temperature 36.8 ??C (98.2 ??F), temperature source Oral, resp. rate 20, height 1.626 m (5' 4.02 ), weight 80.1 kg (176 lb 9.4 oz), SpO2 93 %. Physical Exam GENERAL: ??Ill appearing female lying in bed. No acute distress EYES: ??PERRL; anicteric sclerae; moist conjunctivae; no nystagmus or lid-lag HENT: ??Atraumatic, oropharynx clear, moist mucous membranes, no mucosal ulcerations, normal hard and soft palate, NECK: ??Trachea midline, supple neck, no thyromegaly or lymphadenopathy RESP: ??Airway patent, good air movement, respirations non-labored, breath sounds clear to auscultation, no wheezing CARD: RRR; no murmur, rubs, or gallop TELE: Normal sinus rhythm Extremities: No edema, no cyanosis or clubbing; pulses palpable +2 GI:??Midline incision covered by Covaderm;??No organomegaly or masses; abdomen is soft, nontender and nondistended; bowel sounds?? SKIN: Normal temperature, turgor and texture; no rashes, ulcers or subcutaneous nodules : Morales in place NEURO: Awake and following commands, moves all extremities, no focal deficits Results: Coags: INR Date Value Ref Range Status 09/27/2021 1.2 (H) 0.9 - 1.1 Final Prothrombin Time Date Value Ref Range Status 09/27/2021 15.0 (H) 12.0 - 14.3 sec Final aPTT Date Value Ref Range Status 09/23/2021 56 (H) 25 - 35 sec Final CBC: WBC Count Date Value Ref Range Status 09/27/2021 18.54 (H) 3.70 - 10.30 10*3/uL Final HGB Date Value Ref Range Status 09/27/2021 7.9 (L) 11.2 - 15.7 g/dL Final HCT Date Value Ref Range Status 09/27/2021 25.8 (L) 34.0 - 45.0 % Final RBC Count Date Value Ref Range Status 09/27/2021 2.41 (L) 3.90 - 5.20 10*6/uL Final BMP: Sodium, Plasma Date Value Ref Range Status 09/27/2021 149 (H) 136 - 145 mmol/L Final Potassium, Plasma Date Value Ref Range Status 09/27/2021 3.0 (L) 3.7 - 4.8 mmol/L Final Calcium, Plasma Date Value Ref Range Status 12/03/2014 8.7 (L) 8.9 - 10.2 mg/dL Final Chloride, Plasma Date Value Ref Range Status 09/27/2021 105 97 - 107 mmol/L Final BUN, Plasma Date Value Ref Range Status 09/27/2021 13 7 - 21 mg/dL Final CO2, Plasma Date Value Ref Range Status 09/27/2021 35 (H) 22 - 29 mmol/L Final Creatinine, Plasma Date Value Ref Range Status 09/27/2021 0.86 0.60 - 1.10 mg/dL Final Glucose, Plasma Date Value Ref Range Status 09/27/2021 93 74 - 99 mg/dL Final Magnesium, Plasma Date Value Ref Range Status 09/27/2021 1.9 1.9 - 2.4 mg/dL Final Phosphorus, Plasma Date Value Ref Range Status 09/27/2021 3.5 2.5 - 4.5 mg/dL Final Add Ca++, LFT- AST, Plasma Date Value Ref Range Status 09/26/2021 56 (H) 11 - 32 U/L Final ALT, Plasma Date Value Ref Range Status 09/26/2021 21 8 - 33 U/L Final Alkaline Phosphatase, Plasma Date Value Ref Range Status 09/26/2021 98 35 - 104 U/L Final Total Bilirubin, Plasma Date Value Ref Range Status 09/26/2021 0.7 0.2 - 1.1 mg/dL Final ABG: HCO3, Arterial Date Value Ref Range Status 09/23/2021 32.6 (H) 22 - 26 mmol/L Final FIO2 Date Value Ref Range Status 09/23/2021 50.0 % Final Body Temperature Date Value Ref Range Status 09/23/2021 37.0 Celsius Final VBG: No results found for: BDVEN, BEVEN, AQK6GEK, OEI5SUG, PHVEN, PO2VEN, O5JNOCLY, TWD5PTZKBDA, PHVENTEMP Lactate: Lactate, Arterial Date Value Ref Range Status 09/23/2021 1.0 0.5 - 1.6 mmol/L Final Imaging (past 24h): I personally visualized and interpreted all of the imaging studies below and I agree with formal interpretation. Assessment and Plan Rosendo Aiken is a 46 yoF with PMH chronic liver disease, alcohol use disorder admitted to [facility] on 09/10 from a detox center with encephalopathy and DTs. Developed fever, leukocytosis and was noted to have peritonitis secondary to tubo-ovarian abscess. She had ex-lap with drainage and washout 09/12. New Sepsis picture 09/[address] chest now concerning for bilateral PNA with lower lobe collapse. Received Merrem, daja, Cefepime, and Flagyl at OSH and had been started on TPN. ?? Acute hypoxic respiratory failure requiring mechanical ventilation (POA) COVID-19 + (POA) - Incidentally found to be COVID+ on admission to [facility] and transferred to [facility] - Likely secondary to septic shock with presumed Pneumonia - 09/23: CT chest: bilateral pleural effusions, LLL atelectasis, Bilateral GGO - Extubated to [place] on 09/25 PLAN: - Abx as outlined below - incidentally COVID+, if clinically worsening respiratory status consider starting Dexamethasone - Supportive care - Continue NC to keep SPO2 > 92% ?? Acute Encephalopathy (POA) Hyperactive Delirium - Etiology: likely multifactorial: metabolic, sepsis, sedation with underlying Cirrhosis - CT head: negative for acute abnormality - TSH: 9.74, T4: 0.7, ammonia 21 PLAN: - Continue Thiamine load 500 mg IV Q 8 hrs for 3 days, then daily; folate 1mg daily - Start home Seroquel at 25mg qHS ?? Sepsis (POA) Leukocytosis Tubo-ovarian Abscess s/p drainage & washout (POA) - Patient initially with Tubo-ovarian abscess, s/p drainage/washout/colostomy on 09/12. Intraoperative cultures + for C. Glabrata, E. Coli and Enterbacter. - 09/16: Treated with Meropenem, flagyl, and micafungin, required vasopressors at OSH - 09/23: CT chest: bilateral pleural effusions, LLL atelectasis, Bilateral GGO - CT abd/pelvis: Diffuse hepatic steatosis. Morphologic changes of the liver suggesting underlying parenchymal disease. - Completed 10 days of Cefepime and Micafungin (stopped 09/26) - N/V overnight - Betaglucan BAL from OSH > 500 from 09/23 - 09/27 CT A/P: There is a small to moderate amount of ascites. No discrete fluid collections to suggest abscess.. No evidence of bowel obstruction. ?? Hematoma along the laparotomy incision, measuring roughly 4 x 3 cm in the axial plane. - Lipase 128 -> 139 PLAN: - Continue to monitor - Repeat serum Betaglucan - Restart Micafungin - 1 liter IVF bolus Cirrhosis (POA) EtOH Hepatitis (POA) - liver function improving at OSH; CT showed fatty infiltration of liver and severely distended gallbladder with no stones noted - CT abd/pelvis: Diffuse hepatic steatosis. Morphologic changes of the liver suggesting underlying parenchymal disease. - ammonia 21 on admission PLAN: - monitor - consider Hepatology consult when medically appropriate - having multiple liquid BMs, hold lactulose at this time Ileus - resolved - Hold tube feeds; - NG to LWS with increased output overnight - N/V overnight 09/27 - KUB and CTA/P 09/27 without evidence obstruction or ileus Plan: - Clear liquid diet ?? Depression (POA) General Anxiety disorder (POA) - continue to monitor - Consider low dose Xanax if Seroquel is not helpful ?? HTN (POA) - hold any home medications at this time - prn medication for BP control ?? Hypernatremia (POA) - improving - Na 148 on admission PLAN: - recheck with AM labs ?? Protein Calorie Malnutrition (POA) - previously on TPN at OSH, unclear why - Prealbumin 5.2; albumin 1.6; total protein 6.2 PLAN: - Passed Dysphagia: clear liquid diet ordered ?? EtOH abuse (POA) - had been in behavioral health for inpatient detox - has previously developed alcohol withdrawal syndrome including seizure activity Plan: - Supportive care Delirium - patient with confusion and restlessness - Suspect hyperactive delirium Plan: - Hold benzodiazepines if able - Promote day and night routine - OOBTC as tolerated - Start home Seroquel at 25mg qHS ?? Mobility - General mobility guidelines - Consult PT/OT ?? Feeding/Fluids: NPO Analgesia: acetaminophen Sedation: Thromboprophylaxis: Heparin SQ, SCDs Head of bed: > 30 degrees Ulcer prophylaxis: PPI Glycemic control: FSBG monitoring, correction dose insulin Spontaneous breathing trial: Daily per vent separation protocol Bowel regimen: Last BM 09/26 Invasive line: PIV, NG De-escalation: Cultures pending; continue micafungin ?? DISPO: - FULL CODE - MICU level care Procedures * Progress Notes - Robyn Finn, [employer] CLERK - 09/28/2021 10:14 AM EST Speech Language Pathology Clinical Swallow Discharge Evaluation Patient Name: Rosendo Roach Age: 46 y.o. Today's Date: 09/28/2021 Recommendations: Up to a regular diet texture per team, thin liquids, straws ok and meds as able. History/Background Information 46 yoF with PMH chronic liver disease, alcohol use disorder admitted to [facility] on 09/10 from a detox center with encephalopathy and DTs. Developed fever, leukocytosis and was noted to have peritonitis secondary to tubo-ovarian abscess. She had ex-lap with drainage and washout 09/12. New Sepsis picture 09/[address] chest now concerning for bilateral PNA with lower lobe collapse. Received Merrem, daja, Cefepime, and Flagyl at OSH and had been started on TPN. EMV 14. Patient Active Problem List Diagnosis ??? Anxiety ??? Essential hypertension ??? Sepsis (CMS/HCC) ??? Respiratory failure with hypoxia (CMS/HCC) No past medical history on file. No past surgical history on file. Current diet: Tube Feeding Tube feeding formula: Peptamen Intense VHP; Tube feeding schedule: Continuous; Tube feeding continous initial Rate (ml/hr): 20 Subjective RN ok'd eval. Team ok'd pt for regular solids and will advance her diet at their discretion. Pt received alert, oriented to name/ and agreeable to eval. She does not endorse a hx of dysphagia prior to this admission. Objective Predisposing risk factors: N/A Clinical signs of possible chronic dysphagia: N/A Precipitating risk factors: N /A Respiratory Status: NC 2L Relevant Imaging: CXR 09/26 increased right basilar opacities Oral Mechanism Report: Dentition: partially edentulous Oral hygiene: WFL Focused Cranial Nerve Exam: Trigeminal Nerve (V): facial sensation intact and mandible strength/ROM intact Facial Nerve (VII): WFL Vagus (X): intact palate elevation Spinal Accessory (XI): WFL Hypoglossal Nerve (XII): WFL Laryngeal Function Exam: Secretion Management: adequate Vocal Quality: adequate MPT: 16 seconds, WNL S/Z ratio: WNL Pitch Range: WNL Cough: - Volitional adequate - Reflexive not assessed Oral Feeding Trials: Positionin-90 degrees Feeding assistance: intermittent assistance from [employer] CLERK or caregiver Consistencies Administered: ice chips, thin liquid via teaspoon, thin liquid via cup, thin liquid via straw, puree via teaspoon and dry solid consistency Oral Stage: Adequate labial seal, slow chewing/mashing w/ regular solids and adequate oral clearance Pharyngeal Stage: No overt s/s of aspiration 90 mL water test (Glenny, 2008): pass WBC: 18.54 INR: 1.2 Temp: 97.8 O2: 95% Assessment Summary: Patient does not present w/ s/s of oral dysphagia or overt s/s of aspiration. Her WBC is elevated likely r/t to COVID-19, she is afebrile and stable on 2L NC. Pt appears at low risk for dysphagia-related pulmonary complications and malnutrition. Resume a full PO diet. Prognosis: Good for improved function with skilled speech pathology services focusing on stated goals. Patient Education: Pt was educated on the results of this eval and is agreeable to POC. Results and recommendations of this evaluation were communicated to: RN/Team Plan / Recommendations Therapy Frequency: Skilled intervention in the area of dysphagia is not warranted. * Hospital Course - Xavier Lee MD - 09/27/2021 6:44 PM EST Rosendo Roach is a 46 y.o. female who was who was undergoing inpatient alcohol detox, but becameacutely ill and was admitted to [facility] on 09/10/2021 with ascending cholangitis, peritonitis, pneumoperitoneum, and a left tubo-ovarian abscess, for which she underwent ex- lap with drainage and washout. She remained intubated after surgery and imaging showed bilateral pneumonia - respiratory PCR was negative for flu and COVID-19. She failed an SBT and, despite, decreased sedation, would not follow commands. She was persistently febrile and repeat imaging demonstrated colon wall thickening, persistent pneumonia, pleural effusions and LLL collapse. She was transferred to theICU here on 09/23/2021, where she completed a course of broad spectrum antibiotics to cover both abdominal infection and pneumonia. She was also incidentally found to be COVID-19 positive on repeat testing, but never required treatment for this. She now has two negative COVID tests, so she is off isolation. For acute rehab placement. * Progress Notes - Nubia Angeles Adelfo - 09/27/2021 2:56 PM EST Physical Therapy Treatment Patient Name: Rosendo Roach Today's Date: 09/27/2021 PT Discharge Recommendations: Acute rehab Equipment Recommended: Defer to facility Subjective Pt agreeable to PT treatment. Participants in Care Family/Caregiver Present: No Presentation Oxygen Therapy: Supplemental oxygen O2 Delivery Method: Nasal cannula O2 Flow Rate (L/min): 2 L/min Lines and Tubes: Intravenous access,Telemetry,Urinary catheter,NG tube,Dobhoff,Central Line Pre-Session: Supine,Head of bed elevated,Lines intact,Restraints Pre-Session Comments: RN cleared patient for therapy session Post-Session: Supine,Head of bed elevated,Lines intact,RN notified,Restraints,Call light in reach,SCDs applied Post-Session Comments: soft bilateral wrist restraints secured into place. Precautions None Objective Pain Pain Assessment Pain Assessment: (pt reporting abdominal pain. no rating provided. nurse aware.) Pain Management Interventions: position adjusted,diversional activity provided Delirium Screening May Agitation Sedation Scale (RASS): Alert and calm Confusion Assessment Method-ICU (CAM-ICU/PCAM-ICU) Feature 1: Acute Onset or Fluctuating Course: Positive Feature 3: Altered Level of Consciousness: Negative Bed Mobility Bed Mobility Exam: Rolling/Turning Level of [place]: Dependent Physical/Nonphysical Assist: Additional assist utilized for safety,Maximal cues,Verbal Cues Bed Mobility Exam: Scooting/Bridging Level of [place]: Dependent (while seated at EOB and while supine in bed) Physical/Nonphysical Assist: Verbal Cues,Additional assist utilized for safety,Set-up required Bed Mobility Exam: Supine to Sit Level of [place]: Dependent Physical/Nonphysical Assist: Verbal Cues,Additional assist utilized for safety,Moderate cues Bed Mobility Exam: Sit to Supine Level of [place]: Dependent Physical/Nonphysical Assist: Verbal Cues,Moderate cues,Additional assist utilized for safety Balance Postural Appearance Posture: Stooped posture,Rounded shoulders,Decreased lumbar lordosis,Increased thoracic kyphosis,Weight shift posterior to midline,Pushing posteriorly Static Sitting Balance Static Sitting-Balance Support: Right upper extremity support,Left upper extremity support Static Sitting-Level of Assistance: Dependent (with periods of maxA after max cues limited by pain and fatigue) Stating Sitting - Interventions: Pt required tactile and verbal cues for anterior weight shift. Dynamic Sitting Balance Dynamic Sitting-Balance Support: Feet supported,Right upper extremity support,Left upper extremity support Dynamic Sitting-Balance: Reaching for objects Level of Assistance: Dependent Dynamic Sitting - Interventions: Pt required max verbal cues for upright positioning. Therapeutic Activity (36 minutes) Refer to Bed Mobility and Balance sections for details. Pt sat EOB for 20 minutes dependently with periods of progression to maxA after max cues and total assist for set up as follows. Pt was given max cues for hand placement to improve upright positioning and anterior weight shift; pt required total assist to place hands anteriorly despite max verbal cues. Pt regressed quickly to dependent for static sitting balance due to pain and fatigue. Of note, pt presents with impaired cognition this date increasing time required to complete all activities today. Mobility CARE Tool Performance MOBILITY CARE ITEMS CARE SCORE Roll Left and Right 1 Sit to Lying 1 Lying to Sitting on Side of Bed 1 Sit to Stand 88 Chair/Tqb-nj-Pxece Transfer 88 Toilet Transfer 88 Car Transfer 10 Walk 10 Feet 88 Walk 50 Feet with Two Turns 88 Walk 150 Feet 88 Walking 10 Feet of Uneven Surfaces 10 1 Step (Curb) 88 4 Steps 88 12 Steps 88 Picking up Object 88 Wheel 50 Feet with Two Turns 9 Wheel 150 Feet 9 CARE Tool Performance Score Adams Score Assist Level Description 6 Independent Patient completes the activity by him/herself with no assistance from a helper. 5 Set-up or Clean-up Assistance [place] sets up or cleans up; patient completes activity. [place] assists only prior to or following the activity. 4 Supervision or touching assistance [place] provides verbal cues and/or touching/steadying and/or contact guard assistance as patient completes activity. Assistance may be provided throughout the activity or intermittently. 3 Partial/Moderate Assistance [place] does LESS THAN HALF the effort. [place] lifts, holds or supports trunk or limbs, but provides less than half the effort. 2 Substantial/Maximal Assistance [place] does MORE THAN HALF the effort. [place] lifts or holds trunkor limbs and provides more than half the effort. 1 Dependent [place] does ALL of the effort. Patient does none of the effort to complete the activity. Or, the assistance of 2 or more helpers is required for the patient to complete the activity. Activity Not Attempted Values 7 Patient refused. 9 Not applicable - Not attempted and the patient did not perform this activity prior to the currentillness, exacerbation, or injury. 10 Not attempted due to environmental limitations (e.g., lack of equipment, weather constraints) 88 Not attempted due to medical condition or safety concerns Standardized Assessments [facility] 6-Clicks Mobility Assessment Difficulty patient has turning over in bed (including adjusting bedclothes, sheets, and blankets)?:Unable Difficulty patient has sitting down on and standing up from a chair with arms (wheelchair, bedside commode, etc.)?: Unable Difficulty patient has moving from lying on back to sitting on the side of the bed?: Unable How much help does the patient need moving to and from a bed to a chair (including a wheelchair)?: Unable How much help does the patient need to walk in hospital room?: Unable How much help does the patient need climbing 3-5 steps with a railing?: Unable [facility] 6-Clicks Mobility Assessment Total : 6 Assessment Pt continues to required maxA to total assist to sit EOB with poor response to verbal cues and fairfollow through of positioning once therapist sets up the UEs for increased JOSE G and anterior weight shift. Pt required max encouragement to participate and for attention to task today limiting progression of activities. Pt tolerated therapy session with VSS but with increased emotional lability likely due to impaired cognition. Pt would benefit from further skilled PT to improve functional mobility and activity tolerance. PT Recommendations Discharge Destination: Acute rehab Discharge Equipment: Defer to facility Plan Progress EOB activities and transfer training. PT Goals PT GOAL DETAILS Goal Established Date Time Frame Goal Status PT Goal 1: Pt will maintain static sitting balance at EOB with CGA x10 minutes in preparation for transfers. 09/26/21 2 weeks PT Goal 2: Pt will complete supine<>sit with min assist in order to get in/out of bed. 09/26/21 2 weeks PT Goal 3: Pt will complete sit<>stand and bed<>chair using least restrictive device with CGA in order to increase safety with transfers. 09/26/21 2 weeks PT Goal 4: Pt will ambulate 100 feet using least restrictive device with min assist in order to perform mobility with decreased risk of falls. 09/26/21 2 weeks PT Goal 5: Pt/family will be independent with HEP and d/c recommendations. 09/26/21 2 weeks Written by Nubia Angeles on 09/27/21 at 3:05 PM. * Progress Notes - Neeta Johnson, OT - 09/27/2021 2:55 PM EST Occupational Therapy Treatment Patient Name: Rosendo Roach Today's Date: 09/27/2021 OT Discharge Recommendations: Acute rehab Equipment Recommended: Defer to facility Subjective RN ok'd OT treatment. Pt reports, My incision hurts. Participants in Care Presentation Oxygen Therapy: Supplemental oxygen O2 Delivery Method: Nasal cannula Lines and Tubes: Intravenous access,Telemetry,Urinary catheter,NG tube,Dobhoff,Central Line Pre-Session: Supine,Head of bed elevated,Lines intact,Restraints Pre-Session Comments: RN cleared patient for therapy session Post-Session: Supine,Head of bed elevated,Lines intact,RN notified,Restraints,Call light in reach,SCDs applied Post-Session Comments: soft bilateral wrist restraints secured into place. Objective Pain Pain Assessment Pain Assessment: (pt reporting abdominal pain. no rating provided. nurse aware.) Pain Management Interventions: rest,position adjusted Delirium Screening May Agitation Sedation Scale (RASS): Alert and calm Confusion Assessment Method-ICU (CAM-ICU/PCAM-ICU) Feature 3: Altered Level of Consciousness: Negative Cognition Cognition Cognitive Skill Development Intervention: Pt participated in cognitive retraining tasks this date. Pt Independently oriented to name, date, and place. Pt required choices for current month and year. Pt participated in simple one step command following task in relation to functional mobility (ie. supine><sit EOB navigation). Pt required verbal, gestural, and tactile cues to increase response. Pt observed to require verbal cues for attention to task and sequencing. Pt also observed tohave nonsensical conversation throughout session and required cues to attend to current conversation and/or directions. Overall Cognitive Status: Impaired Cognitive Function 1st 15 min Time Entry: 20 Self-Care Interventions Self Care/Home Management (ADLs) Time Entry: 15 Grooming Grooming Level of Assistance: Moderate assistance Grooming Where Assessed: Sb of bed Grooming Interventions: oral hygiene task via swab with use of alternating UE's. Lower Extremity Dressing Sock Level of Assistance: Dependent LE Dressing Where Assessed: Bed level LE Dressing Interventions: donning socks Assessment Pt demonstrates increased independence with simple grooming task sitting EOB. Pt able to follow simple commands with verbal, tactile, and gestural cues to increase response. Pt to benefit from continued skilled OT services. OT Recommendations Discharge Destination: Acute rehab Discharge Equipment: Defer to facility Plan Continue with skilled OT services. OT Goals OT GOAL DETAILS Goal Established Date Time Frame Goal Status OT Goal 1: Patient will complete feeding/grooming with set-up/stand by assist 2/2 sessions in orderto increase upper extremity range of motion 09/26/21 2 weeks OT Goal 2: Patient will transfer from bed to bedside commode with moderate assist x2 2/2 sessions in order to prepare for toileting 09/26/21 2 weeks OT Goal 3: Patient will complete toilet hygiene with min assist x1 2/2 sessions in order to increase upper extremity endurance 09/26/21 2 weeks Written by Neeta Johnson OT on 09/27/21 at 3:06 PM. * Progress Notes - Jeanette Jones - 09/27/2021 2:31 PM EST Case Management Adult Progress Note Rosendo Roach 46 y.o. female CSN: [id number] Admission: 09/23/2021 4:37 PM Primary Problem: Sepsis (CMS/HCC) Anticipated Discharge Date: TBD Additional Comments CM continues to follow for assistance. Per pulmonary team and chart review, patient still has ICU orders and not medically ready for discharge planning services. PT/OT recommending acute rehab at this time. CM will remain available and continue to follow. Discharge disposition TBD. Jeanette Jones * Progress Notes - Blanco Garcia APRN - 09/27/2021 1:46 PM EST MICU PROGRESS NOTE Events of past 24 hours: No acute events or issues overnight. Remains hemodynamically stable and afebrile. Increased WBC today. Patient remains confused. Reported N/V overnight. CT A/P pending. Patient without complaints of pain or SOA today Review of Systems: Unable to obtain a complete 14 point review of systems due to patient status and intubation Last Recorded Vitals Blood pressure 116/75, pulse (!) 111, temperature 36.9 ??C (98.4 ??F), temperature source Oral, resp. rate 24, height 1.626 m (5' 4.02 ), weight 83.8 kg (184 lb 11.9 oz), SpO2 91 %. Physical Exam GENERAL: ??No acute distress EYES: ??PERRL; anicteric sclerae; moist conjunctivae; no nystagmus or lid-lag HENT: ??Atraumatic, oropharynx clear, moist mucous membranes, no mucosal ulcerations, normal hard and soft palate, NECK: ??Trachea midline, supple neck, no thyromegaly or lymphadenopathy RESP: ??Airway patent, good air movement, respirations non-labored, breath sounds clear to auscultation, no wheezing CARD: RRR; no murmur, rubs, or gallop TELE: Normal sinus rhythm Extremities: No edema, no cyanosis or clubbing; pulses palpable +2 GI:??Midline incision covered by Covaderm;??No organomegaly or masses; abdomen is soft, nontender and nondistended; bowel sounds?? SKIN: Normal temperature, turgor and texture; no rashes, ulcers or subcutaneous nodules : Morales in place NEURO: Awake and following commands, moves all extremities, no focal deficits ?? Results: Coags: INR Date Value Ref Range Status 09/27/2021 1.2 (H) 0.9 - 1.1 Final Prothrombin Time Date Value Ref Range Status 09/27/2021 15.0 (H) 12.0 - 14.3 sec Final aPTT Date Value Ref Range Status 09/23/2021 56 (H) 25 - 35 sec Final CBC: WBC Count Date Value Ref Range Status 09/27/2021 20.77 (H) 3.70 - 10.30 10*3/uL Final HGB Date Value Ref Range Status 09/27/2021 8.0 (L) 11.2 - 15.7 g/dL Final HCT Date Value Ref Range Status 09/27/2021 25.5 (L) 34.0 - 45.0 % Final RBC Count Date Value Ref Range Status 09/27/2021 2.50 (L) 3.90 - 5.20 10*6/uL Final BMP: Sodium, Plasma Date Value Ref Range Status 09/27/2021 146 (H) 136 - 145 mmol/L Final Potassium, Plasma Date Value Ref Range Status 09/27/2021 3.1 (L) 3.7 - 4.8 mmol/L Final Calcium, Plasma Date Value Ref Range Status 12/03/2014 8.7 (L) 8.9 - 10.2 mg/dL Final Chloride, Plasma Date Value Ref Range Status 09/27/2021 107 97 - 107 mmol/L Final BUN, Plasma Date Value Ref Range Status 09/27/2021 17 7 - 21 mg/dL Final CO2, Plasma Date Value Ref Range Status 09/27/2021 31 (H) 22 - 29 mmol/L Final Creatinine, Plasma Date Value Ref Range Status 09/27/2021 0.79 0.60 - 1.10 mg/dL Final Glucose, Plasma Date Value Ref Range Status 09/27/2021 117 (H) 74 - 99 mg/dL Final Magnesium, Plasma Date Value Ref Range Status 09/27/2021 2.0 1.9 - 2.4 mg/dL Final Phosphorus, Plasma Date Value Ref Range Status 09/27/2021 3.1 2.5 - 4.5 mg/dL Final Add Ca++, LFT- AST, Plasma Date Value Ref Range Status 09/26/2021 56 (H) 11 - 32 U/L Final ALT, Plasma Date Value Ref Range Status 09/26/2021 21 8 - 33 U/L Final Alkaline Phosphatase, Plasma Date Value Ref Range Status 09/26/2021 98 35 - 104 U/L Final Total Bilirubin, Plasma Date Value Ref Range Status 09/26/2021 0.7 0.2 - 1.1 mg/dL Final ABG: HCO3, Arterial Date Value Ref Range Status 09/23/2021 32.6 (H) 22 - 26 mmol/L Final FIO2 Date Value Ref Range Status 09/23/2021 50.0 % Final Body Temperature Date Value Ref Range Status 09/23/2021 37.0 Celsius Final VBG: No results found for: BDVEN, BEVEN, KLY9PNF, IXH0KIS, PHVEN, PO2VEN, B0BNESMN, [id number], PHVENTEMP Lactate: Lactate, Arterial Date Value Ref Range Status 09/23/2021 1.0 0.5 - 1.6 mmol/L Final Imaging (past 24h): I personally visualized and interpreted all of the imaging studies below and I agree with formal interpretation. XR Abdomen 1 View Result Date: 09/27/2021 Narrative: Exam/Procedure: XR ABDOMEN 1 VIEW ordered by BLANCO GARCIA, [id number] CLINICAL INDICATION: Evaluate for ileus TECHNIQUE: Supine radiograph of the abdomen. COMPARISON: 09/25/2021 FINDINGS: Tipof the feeding tube projects over the ligament of Treitz. Tip of the NG tube projects over the distal duodenum. Status post laparotomy. Interval improvement in the previously demonstrated gaseous colonic distention. Nondistended gas-filled colonic loops. No convincing features suggest small bowel obstruction. No obvious pneumoperitoneum. Interval improvement in the previously demonstrated gaseous colonic distention. No convincing radiographic features to suggest ileus or obstruction. No obvious pneumoperitoneum. CRITICAL RESULT: No. COMMUNICATION: Per this written report. Signed by Roberta Iraheta on 09/27/2021 8:[address] Abdomen Pelvis w IV Contrast Result Date: 09/27/2021 Narrative: Exam/Procedure: CT ABDOMEN PELVIS W IV CONTRAST ordered by BLANCO GARCIA, [id number] CLINICAL INDICATION: Abdominal abscess/infection suspected TECHNIQUE: Multiple axial CT images were obtained from lung bases through pubic symphysis following administration of IV contrast, Omnipaque 300, 100 mL. Delayed images of abdomen and kidneys also obtained. Reformatted images in the coronal and sagittal planes were generated from the axial data set to facilitate diagnostic accuracy. Total DLP (Dose-Length Product): 1422.66 mGy.cm. Please note: The reported value represents the total of one ormore individual components during the CT acquisition on this date and at this time, and as such, the same value may appear in more than one CT report depending on the interpreting/reporting physicians. COMPARISON: CT from September 23, 2021 FINDINGS: Lower Chest: There are [id number] bilateral pleural effusions. There is left lower lobe atelectasis. Patchy bibasal opacities are present. Solid Abdominal Organs: Liver demonstrates fatty change. No discrete suspicious focal liver lesions. Decompressed somewhat edematous gallbladder. Unremarkable pancreas and spleen. Unremarkable adrenal glands. No hydronephrosis. Small bilateral renal cysts are present. Punctate calculi are present bilaterally. GI Tract/Mesentery/Peritoneum: Large and small bowel appear normal in caliber. No pneumatosis.Mesenteric edema is present.. Pelvic Viscera: Decompressed, catheterized urinary bladder. No pelvicmass. Lymph Nodes/Vasculature: Aortoiliac vasculature is normal in caliber. No lymphadenopathy FreeFluid:There is a small to moderate amount of ascites. Musculoskeletal and Body Wall:No clearly aggre ssive bone lesions. Small hematoma along the laparotomy incision There is a small to moderate amount of ascites. No discrete fluid collections to suggest abscess.. No evidence of bowel obstruction. Hematoma along the laparotomy incision, measuring roughly 4 x 3 cmin the axial plane Patchy bibasal lung opacities CRITICAL RESULT: No. COMMUNICATION: Per this written report. Signed by Steve Hdz on 09/27/2021 10:46 AM Assessment and Plan Rosendo Aiken is a 46 yoF with PMH chronic liver disease, alcohol use disorder admitted to [facility] on 09/10 from a detox center with encephalopathy and DTs. Developed fever, leukocytosis and was noted to have peritonitis secondary to tubo-ovarian abscess. She had ex-lap with drainage and washout 09/12. New Sepsis picture 09/[address] chest now concerning for bilateral PNA with lower lobe collapse. Received Merrem, daja, Cefepime, and Flagyl at OSH and had been started on TPN. ?? Acute hypoxic respiratory failure requiring mechanical ventilation (POA) COVID-19 + (POA) - Incidentally found to be COVID+ on admission to [facility] and transferred to [place] [facility] - Likely secondary to septic shock with presumed Pneumonia - 09/23: CT chest: bilateral pleural effusions, LLL atelectasis, Bilateral GGO - Extubated to [place] on 09/25 PLAN: - Abx as outlined below - Hold diuresis today - incidentally COVID+, if clinically worsening respiratory status consider starting Dexamethasone ?? Acute Encephalopathy (POA) - improving - Etiology: likely multifactorial: metabolic, sepsis, sedation with underlying Cirrhosis - CT head: negative for acute abnormality - TSH: 9.74, T4: 0.7, ammonia 21 PLAN: - CIWA protocol - Continue Thiamine load 500 mg IV Q 8 hrs for 3 days, then daily; folate 1mg daily ?? Sepsis (POA) Leukocytosis Tubo-ovarian Abscess s/p drainage & washout (POA) - Patient initially with Tubo-ovarian abscess, s/p drainage/washout/colostomy on 09/12. Intraoperative cultures + for C. Glabrata, E. Coli and Enterbacter. - 09/16: Treated with Meropenem, flagyl, and micafungin, required vasopressors at OSH - 09/23: CT chest: bilateral pleural effusions, LLL atelectasis, Bilateral GGO - CT abd/pelvis: Diffuse hepatic steatosis. Morphologic changes of the liver suggesting underlying parenchymal disease. - Completed 10 days of Cefepime and Micafungin (stopped 09/26) - N/V overnight - Betaglucan > 500 from 09/23 PLAN: - Continue to monitor - CT A/P with contrast pending to assess for abscess/infectious process Cirrhosis (POA) EtOH Hepatitis (POA) - liver function improving at OSH; CT showed fatty infiltration of liver and severely distended gallbladder with no stones noted - CT abd/pelvis: Diffuse hepatic steatosis. Morphologic changes of the liver suggesting underlying parenchymal disease. - ammonia 21 on admission PLAN: - monitor - consider Hepatology consult when medically appropriate - having multiple liquid BMs, hold lactulose at this time Ileus - Hold tube feeds; - NG to LWS with increased output overnight - N/V overnight 09/27 - KUB 001/ without evidence obstruction or ileus Plan: - Hold TF for now - CT A/P with contrast pending ?? Depression (POA) General Anxiety disorder (POA) - continue to monitor ?? HTN (POA) - hold any home medications at this time - prn medication for BP control ?? Hypernatremia (POA) - improving - Na 148 on admission PLAN: - recheck with AM labs ?? Protein Calorie Malnutrition (POA) - previously on TPN at OSH, unclear why - Prealbumin 5.2; albumin 1.6; total protein 6.2 PLAN: - NPO, restart TF post extubation - [employer] consult when appropriate ?? EtOH abuse (POA) - had been in behavioral health for inpatient detox - has previously developed alcohol withdrawal syndrome including seizure activity Plan: Delirium - patient with confusion and restlessness - Suspect hyperactive delirium Plan: - Hold benzodiazepines - Promote day and night routine - OOBTC as tolerated ?? Mobility - General mobility guidelines - Consult PT/OT ?? Feeding/Fluids: NPO Analgesia: acetaminophen Sedation: Thromboprophylaxis: Heparin SQ, SCDs Head of bed: > 30 degrees Ulcer prophylaxis: PPI Glycemic control: FSBG monitoring, correction dose insulin Spontaneous breathing trial: Daily per vent separation protocol Bowel regimen: Last BM 09/26 Invasive lines: CVC 09/23/21, Morales 09/23/21, and PIV De-escalation: Cultures pending; continue micafungin and cefepime??stop date 09/26 ?? DISPO: - FULL CODE - MICU level care Procedures * Consults - Zee Duffy RD - 09/27/2021 11:55 AM EST Adult Nutrition Evaluation Note Rosendo Roach 46 y.o. female CSN: [id number] Room/Bed 134/134A Nutrition evaluation type: follow-up Reason for evaluation: Hospital course: 46 year old female who transferred to [facility] for failure to wean, persistent fevers and continued acute encephalopathy. The patient was found incidentally COVID-19 positive and transferred to [facility]. With acute hypoxic respiratory failure requiring mechanical ventilation (09/27/21) Pt was extubated 09/26/21. XR abdomen 09/25/21 with findings most suggestive of developing ileus. Improving acute encephalopathy Past medical/ surgical history: chronic liver disease, cirrhosis, alcohol use disorder admitted to OSH on 09/10 from a detox center. Imaging showed acute ascending colitis/ peritonitis and pneumoperitoneum s/p ex-lap on 09/12 and a tubo-ovarian abscess was noted. New sepsis 09/[address] concerning for bilateral pneumonia and lower lobe collapse. Started on TPN (unsure etiology), depression, HTN, protein calorie malnutrition, section, anxiety disorder, insomnia Social history: Pt reported that she has been smoking; hx of 32 pack-year smoking history. Current alcohol use of about 21-30 standard drinks per week. Additional comments: In precautions 09/27/21: Pt remains in precautions; observed her from outside of the room. RN stated TF is off due to vomiting and distended abdomen Vitals and Basic Assessment: BP: 132/65 Temp: 36.9 ??C (98.4 ??F) Invasive Ventilator Initiated (ETT/Trach Only): Yes Oxygen Therapy: Supplemental oxygen O2 Delivery Method: Nasal cannula [place] Coma Scale Score: 14 Johan Scale Score: 12 Javier/Cubbin Pressure Risk Score: 33 Last BM Date: 09/27/21 GI Symptoms: Vomiting Edema: Generalized Skin: Lower right abdomen, mid abdomen incision Allergies: No known food allergies Medications: enoxaparin, 40 mg, Subcutaneous, Daily with dinner ??? [START ON 09/28/2021] folic acid, 1 mg, Oral, Daily ??? insulin regular, 0-5 Units, Subcutaneous, q6h SUKHJINDER ??? mineral oil-hydrophilic petrolatum, 1 application, Topical, BID ??? [START ON 09/28/2021] thiamine, 100 mg, Oral, Daily dextrose, 50 mL/hr, Last Rate: 50 mL/hr (09/27/21 0913) Meds were reviewed: Yes Labs: Labs in last 18 hours CBC WBC 20.77 (H) Hb 8.0 (L) Plt 670 (H) Hct 25.5 (L) ANC ?? INR 1.2 (H), PTT ??, Anti-Xa ?? BMP Na 146 (H) Cl 107 BUN 17 Glu 117 (H) K 3.1 (L) Co2 31 (H) Cr 0.79 Ca 8.3 (L) iCa 4.5 (L) Mg 2.0, Phos 3.1 (K+ is low) Lactate ?? LFT AST ?? AlkPhos ?? T Prot ?? ALK ?? Bili ?? Alb ?? D.Bili ?? Lab Results Component Value Date HGBA1C 4.9 09/23/2021 Lab Results Component Value Date TRIG 180 (H) 09/27/2021 TRIG 178 (H) 09/24/2021 Anthropometrics: Height: 162.6 cm (5' 4.02 ) Weight: 83.8 kg (184 lb 11.9 oz) BMI (Calculated): 31.7 Weight Evaluation: Obese-Class 1 (BMI 30-34.9) Arthur Body Weight (kg): 54.5 Percent Arthur Body Weight: 153 Adjusted Body Weight (kg): 61.8 Wt Readings from Last 12 Encounters: 09/24/21 83.8 kg (184 lb 11.9 oz) 02/26/21 70.2 kg (154 lb 12.2 oz) Estimated Needs: Kcal/ K-30 Kcal Provided: 3455-9707 Kcal Needs Based On: Adjusted weight Gm Protein/ Kg : 1.2-1.5 Protein Provided: 74-93 Protein Needs Based On: Adjusted weight Fluid Provided: per MD Grams of CHO Percent calories from CHO: Current Nutrition Intake: Diet Order: NPO Tube Feeding Route: (P) ND Diet Experience and Nutrition History: Diet Education Provided: Will monitor Pertinent home medications: Congregational needs: Nutrition Focused Physical Exam: Unable to Complete Exam: Isolation precautions Physical exam performed on (date): Assessment of Malnutrition: Unable to Complete Exam: Isolation precautions Nutrition Problem: Inadequate oral intake related to respiratory failure as evidenced by NPO diet order, mechanical ventilation Status of Nutrition Diagnosis: Resolved Altered GI function related ileus as evidenced by vomiting, distended abdomen Status of Nutrition Diagnosis: New Nutrition Interventions and Recommendations: --Will monitor duration of NPO --When able to resume EN, recommend Peptamen 1.5. Begin at low rate of 20 ml/hr --Monitor potassium, phosphorus and magnesium due to potential refeeding syndrome risk; replace prn. --Advance TF slowly as tolerated while monitoring GI tolerance to eventual goal of 50 ml/hr (1100 ml/day) provides 1650 kcal, 75g protein, 207g CHO, 62g fat, 0g fiber, 845 ml water and 110% RDIs vit/min. --Free water flushes per MD/team --If NPO is to be prolonged and unable to feed patient via diet or enterally, consider TPN Nutrition Monitoring and Goals: -- Nutrition to start (met) -- Tube feeding intake >80% prescribed by follow up (new) -- Monitoring nutritional status and interventions, following per department acuity. (ongoing) Acuity Level: [address] * Progress Notes - Anette More RN - 09/26/2021 3:55 PM EST Images from the original note were not included. Wound Care Consult Visit Date: 09/26/2021?? Patient Name: Rosendo Roach? Date of : 1975 Reason for Consult: New consult for irritation at SID site.? Pertinent Labs: Albumin, Plasma Date Value Ref Range Status 09/26/2021 1.7 (L) 3.5 - 5.2 g/dL Final Wound Assessment: Wound 09/26/21 Other (comment) Abdomen Lower;Right (Active) Date First Assessed/Time First Assessed: 09/26/21 1115 Hand Hygiene Completed: Yes Primary Wound Type: Other (comment) Location: Abdomen Wound Location Orientation: Lower;Right Wound Description (Comments): partial thickness skin loss to RLQ Assessments 09/26/2021 11:15 AM Wound Image Wound Assessment Red;Mallory;Dry Margins Well-defined edges Shira-Wound Assessment Intact Shape central lesion with surrounding areas of crusting Wound Length (cm) 3 cm Wound Width (cm) 2 cm Wound Surface Area (cm^2) 6 cm^2 Wound Depth (cm) 0.1 cm Wound Volume (cm^3) 0.6 cm^3 Drainage Amount None Dressing Open to air Non-staged Wound Description Partial thickness Active Orders Date Order Priority Status Authorizing Provider 09/26/21 1744 Apply/Change Wound Dressing Routine Active Jim Calzada MD - Dressing Type: Other Dressings - Dressing Type: Foam Dressing - Foam Dressing: Polymem - Other: Aquaphor - Other: Other (Comment) - Other dressing (comment):: RLQ ABDOMEN: Gently cleanse wound with saline, pat dry. Apply Aquaphorto wound bed BID, cover with Polymem. Wound Team Summary Assessment: Assessment finds pt confused, focused on asking for water and unableto tell history of the wound. There is a well defined area of partial thickness skin loss to abdominal right lower quadrant, presentation more consistent with MARSI than with MASD. SID drain is no longer in place. Orders placed for Aquaphor and Polymem. Wound Team Plan: Assessment and orders as above, please re-consult with concerns. Anette More RN 09/26/2021?? 3:55 PM * Progress Notes - Laz Garcia, PT - 09/26/2021 10:53 AM EST Physical Therapy Evaluation Patient Name: Rosendo Roach Today's Date: 09/26/2021 PT Discharge Recommendations: Acute rehab Equipment Recommended: Defer to facility History Rosendo Roach is 46 y.o. y/o female admitted 09/23/2021 for work-up of Sepsis ([facility]). Hospital Course 1. Respiratory failure with hypoxia, unspecified chronicity ([facility]) 2. Encounter for other specified special examinations 3. Altered mental status, unspecified altered mental status type Procedures 09/25/21 pt extubated Past Medical History Patient has no past medical history on file. Past Surgical History Patient has no past surgical history on file. Precautions None Subjective Pt agreeable to PT initial evaluation. Participants in Care Family/Caregiver Present: No Presentation Oxygen Therapy: Supplemental oxygen O2 Delivery Method: Nasal cannula O2 Flow Rate (L/min): 2 L/min Lines and Tubes: Intravenous access,Telemetry,Urinary catheter,NG tube,Dobhoff,Central Line Pre-Session: Supine,Head of bed elevated,Lines intact,Restraints Post-Session: Supine,Head of bed elevated,Lines intact,RN notified,Restraints,Call light in reach Home Living/Set-Up Lives With: Alone (Pt has split custody of 2 children but, otherwise, lives alone.) Home Type: House Home Adaptive Equipment: None Home Layout: One level (level entry) Home Living Comments: Per pt, her neighbor can check on her and provide assistance as needed. Prior Level of Function Receives Help From: No assist required prior to admission Level of Mobility: Ambulatory- community Mobility [place]: Independent gait without device ADL Performance: Independent Patient/Family Goals To go home. Objective Pain Pain Assessment Pain Assessment: 0-10 Pain Score: 10 - Worst possible pain Pain Location: Back,Abdomen Pain Management Interventions: position adjusted,pillow support provided Delirium Screening May Agitation Sedation Scale (RASS): Alert and calm Confusion Assessment Method-ICU (CAM-ICU/PCAM-ICU) Feature 1: Acute Onset or Fluctuating Course: Negative Feature 2: Inattention: Negative Feature 3: Altered Level of Consciousness: Negative Overall CAM-ICU/PCAM-ICU: Negative Cognition Overall Cognitive Status: Impaired Arousal/Alertness: Appropriate responses to stimuli Mood/Behavior: Alert Single Step Commands: 100% of the time,With repetition Method of Communication: Verbal Safety Judgment: Good awareness of safety precautions Awareness of Errors: Assistance required to identify errors made Deficit Awareness: Fully aware of deficits Attention Span: Attends with cues to redirect Problem Solving: Assistance required to identify errors made Perseveration: Perseverates during conversation Right Upper Extremity Examination RUE Assessment: Exceptions to WFL (shoulder flexion to 60 degrees) Manual Muscle Testing - RUE: (2+/5) Light Touch: Right Upper Extremity: Intact Left Upper Extremity Examination LUE Assessment: Exceptions to WFL (shoulder flexion to 60 degrees) Manual Muscle Testing - LUE: (2+/5) Light Touch: Left Upper Extremity: Intact Right Lower Extremity Examination RLE Assessment: Within Functional Limits Hip flexion: 3- Knee Flexion: 4+ Knee Extension: 4+ Ankle Plantarflexion: 3+ Ankle Dorsiflexion: 3+ Light Touch: Right Lower Extremity: Intact Left Lower Extremity Examination LLE Assessment: Within Functional Limits Hip flexion: 3- Knee Flexion: 4+ Knee Extension: 4+ Ankle Plantarflexion: 3+ Ankle Dorsiflexion: 3+ Light Touch: Left Lower Extremity: Intact Perception/Coordination Bed Mobility Bed Mobility Interventions: During rolling/turning pt required cues for proper set-up and reaching contralaterally for bed rail with physical assistance required to place pt hands on bed rail. Duringsupine<>sit, pt required cues for technique and sequencing, including to roll to side and bring feet off the bed before pushing up to sitting, as well as laying down to his side before lifting feet into bed and laying back into supine position. Bed Mobility Exam: Rolling/Turning Level of [place]: Maximum assist (25% patient effort) Physical/Nonphysical Assist: Verbal Cues,Moderate cues Bed Mobility Exam: Scooting/Bridging Level of [place]: Dependent (while seated at EOB and while supine in bed) Physical/Nonphysical Assist: Verbal Cues,Additional assist utilized for safety Bed Mobility Exam: Supine to Sit Level of [place]: Maximum assist (25% patient's effort) Physical/Nonphysical Assist: Verbal Cues,Additional assist utilized for safety,Moderate cues Bed Mobility Exam: Sit to Supine Level of [place]: Maximum assist (25% patient's effort) Physical/Nonphysical Assist: Verbal Cues,Moderate cues,Additional assist utilized for safety Transfers Transfer Exam: Sit to stand Level of [place]: (Did not assess due to poor sitting balance and increased fatigue during seated activity.) Balance Balance Interventions: Pt required cues for proper hand placement, upright posture, maintaining midline alignment, and weight shifting over JOSE G due to predominant posterior and left leaning. Postural Appearance Posture: Rounded shoulders Static Sitting Balance Static Sitting-Balance Support: Right upper extremity support,Left upper extremity support Static Sitting-Level of Assistance: Maximum assistance (regressing to dependent with fatigue) Dynamic Sitting Balance Dynamic Sitting-Balance Support: Right upper extremity support,Left upper extremity support,Feet supported Level of Assistance: Dependent Therapeutic Activity (15 minutes) Refer to bed mobility, balance, and transfer sections. Mobility CARE Tool Performance MOBILITY CARE ITEMS CARE SCORE Roll Left and Right 2 Sit to Lying 2 Lying to Sitting on Side of Bed 2 Sit to Stand 88 Chair/Aty-cx-Xuwjw Transfer 88 Toilet Transfer 88 Car Transfer 10 Walk 10 Feet 88 Walk 50 Feet with Two Turns 88 Walk 150 Feet 88 Walking 10 Feet of Uneven Surfaces 10 1 Step (Curb) 88 4 Steps 88 12 Steps 88 Picking up Object 88 Wheel 50 Feet with Two Turns 9 Wheel 150 Feet 9 CARE Tool Performance Score Adams Score Assist Level Description 6 Independent Patient completes the activity by him/herself with no assistance from a helper. 5 Set-up or Clean-up Assistance [place] sets up or cleans up; patient completes activity. [place] assists only prior to or following the activity. 4 Supervision or touching assistance [place] provides verbal cues and/or touching/steadying and/or contact guard assistance as patient completes activity. Assistance may be provided throughout the activity or intermittently. 3 Partial/Moderate Assistance [place] does LESS THAN HALF the effort. [place] lifts, holds or supports trunk or limbs, but provides less than half the effort. 2 Substantial/Maximal Assistance [place] does MORE THAN HALF the effort. [place] lifts or holds trunkor limbs and provides more than half the effort. 1 Dependent [place] does ALL of the effort. Patient does none of the effort to complete the activity. Or, the assistance of 2 or more helpers is required for the patient to complete the activity. Activity Not Attempted Values 7 Patient refused. 9 Not applicable - Not attempted and the patient did not perform this activity prior to the currentillness, exacerbation, or injury. 10 Not attempted due to environmental limitations (e.g., lack of equipment, weather constraints) 88 Not attempted due to medical condition or safety concerns Standardized Assessments [facility] 6-Clicks Mobility Assessment Difficulty patient has turning over in bed (including adjusting bedclothes, sheets, and blankets)?:A lot Difficulty patient has sitting down on and standing up from a chair with arms (wheelchair, bedside commode, etc.)?: Unable Difficulty patient has moving from lying on back to sitting on the side of the bed?: A lot How much help does the patient need moving to and from a bed to a chair (including a wheelchair)?: Unable How much help does the patient need to walk in hospital room?: Unable How much help does the patient need climbing 3-5 steps with a railing?: Unable [facility] 6-Clicks Mobility Assessment Total : 8 Assessment Pt actively participated during PT initial evaluation but required occasional cues to redirect or attend to task. Pt fatigued with seated activity, requiring increased assistance to maintain sitting balance with progression of interventions. Pt required increased time and cues to complete all activities due to perseveration of several items including getting more ice chips. Pt's VSS throughout therapy session. Pt would benefit from skilled PT services to improve strength, balance, activity tolerance, and independence with mobility. Impairments: Decreased endurance, ventilation, and/or gas exchange,Impaired attention/alertness,Impaired cognition/safety awareness,Impaired balance,Impaired functional mobility/transfers,Impaired locomotion,Impaired gait dynamics/performance,Impaired postural/trunk control,Decreased strength,Decrea sed range of motion,Pain Activity Limitations: Impaired attention/alertness,Inability to sit independently,Inability to ambulate independently,Inability to transfer independently,Inability to ambulate household distances,Inability to ambulate community distances,Inability to complete ADLs independently Participation Restrictions: Self-care,Home management,Community leisure Activity Tolerance: Tolerates 30 min activity with multiple rests,Sitting Evaluation/Treatment Tolerance: Patient limited by fatigue Diagnosis: Acute Respiratory Failure, COVID-19, Acute encephalopathy, Sepsis, Cirrhosis, EtOH hepatitis, Tubo-ovarian Abscess s/p drainage & washout Rehab Potential: Good, to achieve stated therapy goals Eval Complexity History Profile: 3 or more personal factors and/or comorbidities Clinical Presentation: Unstable and unpredictable characteristics Clinical Decision Making: High complexity PT Recommendations Discharge Destination: Acute rehab Discharge Equipment: Defer to facility Plan Planned PT Interventions Balance training,Bed mobility training,Gait training,Motor coordination training,Transfer training,Postural re-education,Neuromuscular re- education,Strengthening,Functional Mobility PT Frequency 2 - 5 times per week PT Duration 2 weeks Goals PT GOAL DETAILS Time Frame PT Goal 1: Pt will maintain static sitting balance at EOB with CGA x10 minutes in preparation for transfers. 2 weeks PT Goal 2: Pt will complete supine<>sit with min assist in order to get in/out of bed. 2 weeks PT Goal 3: Pt will complete sit<>stand and bed<>chair using least restrictive device with CGA in order to increase safety with transfers. 2 weeks PT Goal 4: Pt will ambulate 100 feet using least restrictive device with min assist in order to perform mobility with decreased risk of falls. 2 weeks PT Goal 5: Pt/family will be independent with HEP and d/c recommendations. 2 weeks Written by Laz Garcia PT on 09/26/21 at 2:42 PM. * Progress Notes - Francisco Bolton, OT - 09/26/2021 10:52 AM EST Occupational Therapy Evaluation Patient Name: Rosendo Roach Today's Date: 09/26/2021 OT Discharge Recommendations: Acute rehab Equipment Recommended: Defer to facility History Rosendo Roach is 46 y.o. y/o female admitted 09/23/2021 for work-up of Sepsis (CMS/HCC). Problem List Active Hospital Problems Diagnosis Date Noted ??? Respiratory failure with hypoxia (CMS/HCC) ??? Sepsis (CMS/HCC) 09/23/2021 Past Medical History Patient has no past medical history on file. Past Surgical History Patient has no past surgical history on file. Precautions None Subjective Patient stated she was thirsty and needed something to drink Participants in Care Family/Caregiver Present: No Insurance Risk Analyst: Not Applicable Presentation Oxygen Therapy: Supplemental oxygen O2 Delivery Method: Nasal cannula O2 Flow Rate (L/min): 2 L/min Lines and Tubes: Intravenous access,Telemetry,Urinary catheter,NG tube,Dobhoff,Central Line Pre-Session: Supine,Head of bed elevated,Lines intact,Restraints Pre-Session Comments: RN cleared patient for therapy session Post-Session: Supine,Head of bed elevated,Lines intact,RN notified,Restraints,Call light in reach Home Living/Set-up Lives With: Alone (Pt has split custody of 2 children but, otherwise, lives alone.) Home Type: House Home Adaptive Equipment: None Home Layout: One level (level entry) Home Living Comments: Per pt, her neighbor can check on her and provide assistance as needed. Prior Level of Function Receives Help From: No assist required prior to admission Level of Mobility: Ambulatory- community Mobility [place]: Independent gait without device ADL Performance: Independent Patient/Family Goals Statement Patient states she wants to feel better and get out of bed Objective Pain Pain Assessment Pain Assessment: 0-10 Pain Score: 10 - Worst possible pain Pain Location: Back,Abdomen Pain Management Interventions: position adjusted,pillow support provided Delirium Screening May Agitation Sedation Scale (RASS): Alert and calm Confusion Assessment Method-ICU (CAM-ICU/PCAM-ICU) Feature 1: Acute Onset or Fluctuating Course: Negative Feature 2: Inattention: Negative Feature 3: Altered Level of Consciousness: Negative Feature 4: Disorganized Thinking: Positive Overall CAM-ICU/PCAM-ICU: Negative Cognition Cognition Overall Cognitive Status: Impaired Arousal/Alertness: Appropriate responses to stimuli Mood/Behavior: Alert Orientation Level: Oriented X4 Single Step Commands: 100% of the time,With repetition Multi-Step Commands: Consistently Method of Communication: Verbal Vision - Basic Assessment Current Vision: Intact Right Upper Extremity Examination RUE ROM Assessment RUE Assessment: Exceptions to WFL (shoulder flexion to 60 degrees) Manual Muscle Testing - RUE: (2+/5) Sensation Light Touch: Right Upper Extremity: Intact Left Upper Extremity Examination LUE ROM Assessment LUE Assessment: Exceptions to WFL (shoulder flexion to 60 degrees) Manual Muscle Testing - LUE: (2+/5) Sensation Light Touch: Left Upper Extremity: Intact Right Lower Extremity Examination RLE ROM Assessment RLE Assessment: Within Functional Limits Hip flexion: 3- Knee Flexion: 4+ Knee Extension: 4+ Ankle Plantarflexion: 3+ Ankle Dorsiflexion: 3+ Sensation Light Touch: Right Lower Extremity: Intact Left Lower Extremity Examination LLE ROM Assessment LLE Assessment: Within Functional Limits Hip flexion: 3- Knee Flexion: 4+ Knee Extension: 4+ Ankle Plantarflexion: 3+ Ankle Dorsiflexion: 3+ Sensation Light Touch: Left Lower Extremity: Intact Bed Mobility Bed Mobility Exam: Rolling/Turning Level of [place]: Maximum assist (25% patient effort) Physical/Nonphysical Assist: Verbal Cues,Moderate cues Bed Mobility Exam: Scooting/Bridging Level of [place]: Dependent (while seated at EOB and while supine in bed) Physical/Nonphysical Assist: Verbal Cues,Additional assist utilized for safety Bed Mobility Exam: Supine to Sit Level of [place]: Maximum assist (25% patient's effort) Physical/Nonphysical Assist: Verbal Cues,Additional assist utilized for safety,Moderate cues Bed Mobility Exam: Sit to Supine Level of [place]: Maximum assist (25% patient's effort) Physical/Nonphysical Assist: Verbal Cues,Moderate cues,Additional assist utilized for safety Transfers Transfer Exam: Sit to stand Level of [place]: (Did not assess due to poor sitting balance and increased fatigue during seated activity.) Balance Postural Appearance Posture: Rounded shoulders Static Sitting Balance Static Sitting-Balance Support: Right upper extremity support,Left upper extremity support Static Sitting-Level of Assistance: Maximum assistance (regressing to dependent with fatigue) Dynamic Sitting Balance Dynamic Sitting-Balance Support: Right upper extremity support,Left upper extremity support,Feet supported Level of Assistance: Dependent Self-Care Interventions Self Care/Home Management (ADLs) Time Entry: 15 While seated on edge of bed, patient required increased time and max assist to raise spoon to mouthdue to decreased upper extremity and endurance. Patient was unable to coordinate spooning of ice chip from cup demonstrating poor bilateral hand coordination. Feeding Feeding Level of Assistance: Maximum assistance,Setup Feeding Where Assessed: Edge of bed Self-Care CARE Tool Performance SELF-CARE ITEMS CARE SCORE Eating 2 Oral Hygiene 88 Toileting Hygiene 88 Shower/Bathe Self 88 Upper Body Dressing 88 Lower Body Dressing 88 Putting On / Taking Off Footwear 88 CARE Tool Performance Score Adams Score Assist Level Description 6 Independent Patient completes the activity by him/herself with no assistance from a helper. 5 Set-up or Clean-up Assistance [place] sets up or cleans up; patient completes activity. [place] assists only prior to or following the activity. 4 Supervision or touching assistance [place] provides verbal cues and/or touching/steadying and/or contact guard assistance as patient completes activity. Assistance may be provided throughout the activity or intermittently. 3 Partial/Moderate Assistance [place] does LESS THAN HALF the effort. [place] lifts, holds or supports trunk or limbs, but provides less than half the effort. 2 Substantial/Maximal Assistance [place] does MORE THAN HALF the effort. [place] lifts or holds trunkor limbs and provides more than half the effort. 1 Dependent [place] does ALL of the effort. Patient does none of the effort to complete the activity. Or, the assistance of 2 or more helpers is required for the patient to complete the activity. Activity Not Attempted Values 7 Patient refused. 9 Not applicable - Not attempted and the patient did not perform this activity prior to the currentillness, exacerbation, or injury. 10 Not attempted due to environmental limitations (e.g., lack of equipment, weather constraints) 88 Not attempted due to medical condition or safety concerns Standardized Assessments Carlitos Index Feeding: Needs help cutting, spreading butter, etc., or requires modified diet Bathing: Dependent Grooming: Needs help with personal care Dressing: Needs help but can do about half unaided Bowels: Continent Bladder: Incontinent, or catheterized and unable to manage alone Toilet Use: Needs some help but can do some things alone Transfers (Bed to Chair and Back): Major help (one or two people, physical), can help Mobility (on Level Surfaces): Immobile or < 50 yards Stairs: Unable Total Score: 30 Assessment Patient presents with decreased upper extremity strength and endurance. Patient benefits from continued occupational therapy in order to improve functional performance. OT Findings: Impaired ADL performance,Decreased upper extremity strength,Impaired functional mobility,Impaired balance,Impaired IADL performance,Impaired executive function,Decreased upper extremity range of motion,Impaired cognition,Impaired fine motor control/coordination Evaluation/Treatment Tolerance: Patient limited by fatigue,Patient limited by pain Rehab Potential: Good, to achieve stated therapy goals Eval Complexity Occupational Profile: Review of medical/therapy records and extensive additional review of physical, cognitive, or psychosocial history Performance Deficits: Activities of daily living (ADLs),Instrumental activities of daily living (IADLs),Leisure,Habits,Routines,Roles Clinical Decision Making: High Overall Eval complexity: Complex OT Recommendations Discharge Destination: Acute rehab Discharge Equipment: Defer to facility Plan Planned OT Interventions ADL retraining,IADL retraining,Balance training,Bed mobility Training,Fine motor coordination training,ROM,Strengthening,Transfer training,Functional mobility,Cognitive retraining OT Frequency 2 - 5 times per week OT Duration 2 weeks Goals OT GOAL DETAILS Time Frame OT Goal 1: Patient will complete feeding/grooming with set-up/stand by assist 2/2 sessions in orderto increase upper extremity range of motion 2 weeks OT Goal 2: Patient will transfer from bed to bedside commode with moderate assist x2 2/2 sessions in order to prepare for toileting 2 weeks OT Goal 3: Patient will complete toilet hygiene with min assist x1 2/2 sessions in order to increase upper extremity endurance 2 weeks Written by Francisco Bolton OT on 09/26/21 at 3:08 PM. * Progress Notes - Blanco Garcia, KHUSHI - 09/26/2021 9:13 AM EST MICU PROGRESS NOTE Events of past 24 hours: No acute events or issues overnight. Remains hemodynamically stable and afebrile. Patient extubated to [place] yesterday. More awake and alert today with mild confusion. Reported hallucinations overnight. Patient complains that she is thirsty and needs to have a bowel movement. No other complaints at this time. Review of Systems: Unable to obtain a complete 14 point review of systems due to patient status and intubation Last Recorded Vitals Blood pressure 106/72, pulse 64, temperature 36.8 ??C (98.2 ??F), temperature source Oral, resp. rate 16, height 1.626 m (5' 4.02 ), weight 83.8 kg (184 lb 11.9 oz), SpO2 98 %. Physical Exam GENERAL: No acute distress EYES: PERRL; anicteric sclerae; moist conjunctivae; no nystagmus or lid-lag HENT: Atraumatic, oropharynx clear, moist mucous membranes, no mucosal ulcerations, normal hard andsoft palate, NECK: Trachea midline, supple neck, no thyromegaly or lymphadenopathy RESP: Airway patent, good air movement, respirations non-labored, breath sounds clear to auscultation, no wheezing CARD: RRR; no murmur, rubs, or gallop TELE: Normal sinus rhythm Extremities: No edema, no cyanosis or clubbing; pulses palpable +2 GI:??Midline incision covered by Covaderm;??No organomegaly or masses; abdomen is soft, nontender and nondistended; bowel sounds SKIN: Normal temperature, turgor and texture; no rashes, ulcers or subcutaneous nodules : Morales in place NEURO: Awake and following commands, moves all extremities, no focal deficits ?? Results: Coags: INR Date Value Ref Range Status 09/26/2021 1.3 (H) 0.9 - 1.1 Final Prothrombin Time Date Value Ref Range Status 09/26/2021 16.2 (H) 12.0 - 14.3 sec Final aPTT Date Value Ref Range Status 09/23/2021 56 (H) 25 - 35 sec Final CBC: WBC Count Date Value Ref Range Status 09/26/2021 12.47 (H) 3.70 - 10.30 10*3/uL Final HGB Date Value Ref Range Status 09/26/2021 7.5 (L) 11.2 - 15.7 g/dL Final HCT Date Value Ref Range Status 09/26/2021 24.4 (L) 34.0 - 45.0 % Final RBC Count Date Value Ref Range Status 09/26/2021 2.30 (L) 3.90 - 5.20 10*6/uL Final BMP: Sodium, Plasma Date Value Ref Range Status 09/26/2021 145 136 - 145 mmol/L Final 09/26/2021 145 136 - 145 mmol/L Final Potassium, Plasma Date Value Ref Range Status 09/26/2021 3.3 (L) 3.7 - 4.8 mmol/L Final Calcium, Plasma Date Value Ref Range Status 12/03/2014 8.7 (L) 8.9 - 10.2 mg/dL Final Chloride, Plasma Date Value Ref Range Status 09/26/2021 110 (H) 97 - 107 mmol/L Final BUN, Plasma Date Value Ref Range Status 09/26/2021 22 (H) 7 - 21 mg/dL Final CO2, Plasma Date Value Ref Range Status 09/26/2021 27 22 - 29 mmol/L Final Creatinine, Plasma Date Value Ref Range Status 09/26/2021 0.75 0.60 - 1.10 mg/dL Final Glucose, Plasma Date Value Ref Range Status 09/26/2021 128 (H) 74 - 99 mg/dL Final Magnesium, Plasma Date Value Ref Range Status 09/26/2021 1.8 (L) 1.9 - 2.4 mg/dL Final Phosphorus, Plasma Date Value Ref Range Status 09/26/2021 3.8 2.5 - 4.5 mg/dL Final Add Ca++, LFT- AST, Plasma Date Value Ref Range Status 09/26/2021 56 (H) 11 - 32 U/L Final ALT, Plasma Date Value Ref Range Status 09/26/2021 21 8 - 33 U/L Final Alkaline Phosphatase, Plasma Date Value Ref Range Status 09/26/2021 98 35 - 104 U/L Final Total Bilirubin, Plasma Date Value Ref Range Status 09/26/2021 0.7 0.2 - 1.1 mg/dL Final ABG: HCO3, Arterial Date Value Ref Range Status 09/23/2021 32.6 (H) 22 - 26 mmol/L Final FIO2 Date Value Ref Range Status 09/23/2021 50.0 % Final Body Temperature Date Value Ref Range Status 09/23/2021 37.0 Celsius Final VBG: No results found for: BDVEN, BEVEN, IHC8LNI, FSS2OEX, PHVEN, PO2VEN, S1SELHPI, [id number], PHVENTEMP Lactate: Lactate, Arterial Date Value Ref Range Status 09/23/2021 1.0 0.5 - 1.6 mmol/L Final Imaging (past 24h): I personally visualized and interpreted all of the imaging studies below and I agree with formal interpretation. XR Abdomen 1 View Result Date: 09/25/2021 Narrative: Exam/Procedure: XR ABDOMEN 1 VIEW ordered by MARK SMITH, [id number] CLINICAL INDICATION: increased abdominal distention TECHNIQUE: Supine radiograph of the abdomen. COMPARISON: September 24, 2021 abdominal x-ray 23 hours ago FINDINGS: Mild to moderate gaseous distention of normal caliber stomach. A diffuse increase in gas throughout the large bowel and small bowel. The small bowel loops remain normal in caliber. The ascending and transverse colon are borderline to mildly dilated.The descending colon is decompressed and contains minimal gas. The cecum measures up to 8.3 cm. Cutaneous maximilian are seen in the midline. A feeding tube tip is seen in the third portion of the duodenum just to the left of the midline. No pneumatosis or free air. Findings are most suggestive of developing ileus. CRITICAL RESULT: No. COMMUNICATION: Per this written report. Signed by Lenora De Anda on 09/25/2021 12:29 PM XR Chest 1 View Result Date: 09/26/2021 Narrative: Exam/Procedure: XR CHEST 1 VIEW ordered by MARK SMITH, [id number] CLINICAL INDICATION: Respiratory failure TECHNIQUE: XR CHEST 1 VIEW COMPARISON: Chest and abdominal radiographs 09/25/2021 FINDINGS: Interval extubation. Interval placement of esophagogastric tube, tip is not visualized though likely within the stomach. Remaining support hardware is unchanged. Increasing right basilar opacities. Small left pleural effusion. No pneumothorax. Increasing right basilar opacities, likely atelectasis with possible underlying airspace disease. CRITICAL RESULT: No. COMMUNICATION: Per this written report. Dictated by Rashida Jaime on 09/26/2021 6:34 AM Assessment and Plan Rosendo Aiken is a 46 yoF with PMH chronic liver disease, alcohol use disorder admitted to [facility] on 09/10 from a detox center with encephalopathy and DTs. Developed fever, leukocytosis and was noted to have peritonitis secondary to tubo-ovarian abscess. She had ex-lap with drainage and washout 09/12. New Sepsis picture 09/[address] chest now concerning for bilateral PNA with lower lobe collapse. Received Merrem, daja, Cefepime, and Flagyl at OSH and had been started on TPN. ?? Acute hypoxic respiratory failure requiring supplemental oxygen (POA) COVID-19 + (POA) - Incidentally found to be COVID+ on admission to [facility] and transferred to [facility] - Likely secondary to septic shock with presumed Pneumonia - 09/23: CT chest: bilateral pleural effusions, LLL atelectasis, Bilateral GGO - Extubated to [place] on 09/25 PLAN: - Abx as outlined below - Intermittent diuresis at needed to keep even to net negative - incidentally COVID+, if clinically worsening respiratory status consider starting Dexamethasone ?? Acute Encephalopathy (POA) - improving - Etiology: likely multifactorial: metabolic, sepsis, sedation with underlying Cirrhosis - CT head: negative for acute abnormality - TSH: 9.74, T4: 0.7, ammonia 21 PLAN: - CIWA protocol - Continue Thiamine load 500 mg IV Q 8 hrs for 3 days, then daily; folate 1mg daily ?? Sepsis (POA) Tubo-ovarian Abscess s/p drainage & washout (POA) - Patient initially with Tubo-ovarian abscess, s/p drainage/washout/colostomy on 09/12. Intraoperative cultures + for C. Glabrata, E. Coli and Enterbacter. - 09/16: Treated with Meropenem, flagyl, and micafungin, required vasopressors at OSH - 09/23: CT chest: bilateral pleural effusions, LLL atelectasis, Bilateral GGO - CT abd/pelvis: Diffuse hepatic steatosis. Morphologic changes of the liver suggesting underlying parenchymal disease. PLAN: - Follow infectious workup from admission with beta glucan - Continue cefepime; continue micafungin with stop date for both of 09/26/21, which will complete 10days of antimicrobial therapy. ?? Cirrhosis (POA) EtOH Hepatitis (POA) - liver function improving at OSH; CT showed fatty infiltration of liver and severely distended gallbladder with no stones noted - CT abd/pelvis: Diffuse hepatic steatosis. Morphologic changes of the liver suggesting underlying parenchymal disease. - ammonia 21 on admission PLAN: - monitor - consider Hepatology consult when medically appropriate - having multiple liquid BMs, hold lactulose at this time ?? Depression (POA) General Anxiety disorder (POA) - continue to monitor ?? HTN (POA) - hold any home medications at this time - prn medication for BP control ?? Hypernatremia (POA) - improving - Na 148 on admission PLAN: - recheck with AM labs ?? Protein Calorie Malnutrition (POA) - previously on TPN at OSH, unclear why - Prealbumin 5.2; albumin 1.6; total protein 6.2 PLAN: - NPO, restart TF post extubation - [employer] consult when appropriate ?? EtOH abuse (POA) - had been in behavioral health for inpatient detox - has previously developed alcohol withdrawal syndrome including seizure activity Plan: - Consult to Addiction Medicine when appropriate - [facility] protocol ?? Mobility - General mobility guidelines - Consult PT/OT ?? Feeding/Fluids: NPO, resume TFs post extubation Analgesia: acetaminophen Sedation: Thromboprophylaxis: Heparin SQ, SCDs Head of bed: > 30 degrees Ulcer prophylaxis: PPI Glycemic control: FSBG monitoring, correction dose insulin Spontaneous breathing trial: Daily per vent separation protocol Bowel regimen: Last BM 09/26 Invasive lines: CVC 09/23/21, Morales 09/23/21, and PIV De-escalation: Cultures pending; continue micafungin and cefepime??stop date 09/26 ?? DISPO: - FULL CODE - MICU level care Procedures * Consults - Manda Gonzales OT - 09/25/2021 2:18 PM EST Occupational Therapy Attempt Patient Name: Rosendo Roach Today's Date: 09/25/2021 Patient was attempted to be seen by occupational therapy 09/25/2021 for OT Evaluation however bedsidecare in progress. Occupational therapy team will follow-up as schedule permits. Written by aMnda Gonzales OT on 09/25/21 at 4:45 PM. * Consults - Laz Garcia PT - 09/25/2021 2:16 PM EST Physical Therapy Attempt Patient Name: Rosendo Roach Today's Date: 09/25/2021 Patient was attempted to be seen by physical therapy 09/25/2021 for PT Evaluation however bedside care in progress with RN placing NG tube. Physical therapy team will follow-up as schedule permits. Written by Laz Garcia PT on 09/25/21 at 4:15 PM. * Progress Notes - Mark Smith DOBBY LOOM FIXER - 09/25/2021 9:31 AM ESTAssociated Order(s): Critical Care Post-Procedure Diagnose(s): Respiratory failure with hypoxia, unspecified chronicity (CMS/HCC); Altered mental status, unspecified altered mental status type MICU PROGRESS NOTE Events of past 24 hours: Yesterday, all sedation was stopped and in the afternoon the patient was awake and following commands, but became restless and was started on precedex. Overnight the patient Hgb dropped from 7.7 to 6.7 and the patient was given 1u PRBC. During AM rounds the patient was awake and alert, following commands and the patient was switched to PS 40% 5/5. The patient appears to be hallucinating during AMassessment. Plan today: give 40mg IV lasix and 10mg PO metolazone in anticipation of extubation andstart CIWA exams due to concern for hallucinations. Review of Systems: Unable to obtain a complete 14 point review of systems due to patient status and intubation Last Recorded Vitals Blood pressure 133/83, pulse 106, temperature 37.9 ??C (100.2 ??F), temperature source Axillary, resp. rate 18, height 1.626 m (5' 4.02 ), weight 83.8 kg (184 lb 11.9 oz), SpO2 98 %. Physical Exam GENERAL: No acute distress EYES: PERRL; anicteric sclerae; moist conjunctivae; no nystagmus or lid-lag HENT: Atraumatic, oropharynx clear, moist mucous membranes, no mucosal ulcerations, normal hard andsoft palate, OETT with mechanical ventilation NECK: Trachea midline, supple neck, no thyromegaly or lymphadenopathy RESP: Airway patent, good air movement, respirations non-labored, breath sounds clear to auscultation, no wheezing CARD: RRR; no murmur, rubs, or gallop TELE: Normal sinus rhythm Extremities: No edema, no cyanosis or clubbing; pulses palpable +2 GI: Midline incision covered by Covaderm; No organomegaly or masses; abdomen is soft, nontender andnondistended; bowel sounds SKIN: Normal temperature, turgor and texture; no rashes, ulcers or subcutaneous nodules : Morales in place NEURO: Awake and following commands, moves all extremities, no focal deficits Results: Labs in last 18 hours CBC WBC 19.15 (H) Hb 8.0 (L) Plt 442 (H) Hct 26.2 (L) ANC ?? INR 1.4 (H), PTT ??, Anti-Xa ?? BMP Na 146 (H); 146 (H) Cl 113 (H) BUN 26 (H) Glu 120 (H) K 3.8 Co2 26 Cr 0.77 Ca 7.7 (L) iCa 4.6 Mg 2.0, Phos 2.2 (L) Lactate ?? LFT AST 81 (H) AlkPhos 129 (H) T Prot 5.6 (L) ALK 23 Bili 0.9 Alb ?? D.Bili ?? Coags: INR Date Value Ref Range Status 09/25/2021 1.4 (H) 0.9 - 1.1 Final Prothrombin Time Date Value Ref Range Status 09/25/2021 16.7 (H) 12.0 - 14.3 sec Final aPTT Date Value Ref Range Status 09/23/2021 56 (H) 25 - 35 sec Final ABG: HCO3, Arterial Date Value Ref Range Status 09/23/2021 32.6 (H) 22 - 26 mmol/L Final FIO2 Date Value Ref Range Status 09/23/2021 50.0 % Final Body Temperature Date Value Ref Range Status 09/23/2021 37.0 Celsius Final VBG: No results found for: BDVEN, BEVEN, HHN8EWR, BNY6DXG, PHVEN, PO2VEN, P2XEVLXL, EMY0WOSSUFR, PHVENTEMP Lactate: Lactate, Arterial Date Value Ref Range Status 09/23/2021 1.0 0.5 - 1.6 mmol/L Final Medications cefepime, 2 g, Intravenous, q8h enoxaparin, 40 mg, Subcutaneous, Daily with dinner esomeprazole, 40 mg, Oral, Daily before breakfast folic acid, 1 mg, Intravenous, Daily insulin regular, 0-5 Units, Subcutaneous, q6h SUKHJINDER micafungin, 100 mg, Intravenous, q24h potassium & sodium phosphates, 1 packet, Oral, TID Povidone-Iodine, 1 Swab, Nasal, Daily thiamine (Vitamin B-1) IV, 500 mg, Intravenous, q8h dexmedetomidine, 0.4-1.4 mcg/kg/hr, Last Rate: 1.2 mcg/kg/hr (09/25/21912) PRN medications: acetaminophen, alteplase, dextrose OR dextrose 10 % OR glucose, dextrose OR dextrose 10 % OR glucose, glucagon (human recombinant), glucose, Insert peripheral IV AND Saline lock IV AND sodium chloride Imaging (past 24h): I personally visualized and interpreted all of the imaging studies below and I agree with formal interpretation. XR Chest 1 View Result Date: 09/25/2021 Narrative: Exam/Procedure: XR CHEST 1 VIEW ordered by DYLAN PEREIRA, [id number] CLINICAL INDICATION:check ETT position TECHNIQUE: XR CHEST 1 VIEW COMPARISON: September 23, 2021 FINDINGS: Support hardware projects in good position. Mediastinal and cardiac contours are stable. Perihilar and basal airspace disease and left pleural effusion are similar to prior. Stable exam. CRITICAL RESULT: No. COMMUNICATION: Per this written report. Signed by Talon Caro 09/25/2021 8:52 AM Assessment and Plan Rosendo Aiken is a 46 yoF with PMH chronic liver disease, alcohol use disorder admitted to [facility] on 09/10 from a detox center with encephalopathy and DTs. Developed fever, leukocytosis and was noted to have peritonitis secondary to tubo-ovarian abscess. She had ex-lap with drainage and washout 09/12. New Sepsis picture 09/[address] chest now concerning for bilateral PNA with lower lobe collapse. Received Merrem, daja, Cefepime, and Flagyl at OSH and had been started on TPN. ?? Acute hypoxic respiratory failure requiring mechanical ventilation (POA) COVID-19 + (POA) - Incidentally found to be COVID+ on admission to [facility] and transferred to [facility] - Likely secondary to septic shock with presumed Pneumonia - 09/23: CT chest: bilateral pleural effusions, LLL atelectasis, Bilateral GGO PLAN: - continue PS, plan for extubation - Continue mechanical ventilation, maintain SpO2 > 90% - Abx as outlined below - diuresis with 40mg IV lasix and 10mg PO metolazone - incidentally COVID+, minimal vent settings, if clinically worsening respiratory status consider starting Dexamethasone Acute Encephalopathy (POA) - Etiology: likely multifactorial: metabolic, sepsis, sedation with underlying Cirrhosis - CT head: negative for acute abnormality - TSH: 9.74, T4: 0.7, ammonia 21 PLAN: - [facility] protocol - continue precedex - continue Thiamine load 500 mg IV Q 8 hrs and folate 1mg daily - hold sedating medications as able Sepsis (POA) Tubo-ovarian Abscess s/p drainage & washout (POA) - Patient initially with Tubo-ovarian abscess, s/p drainage/washout/colostomy on 09/12. Intraoperative cultures + for C. Glabrata, E. Coli and Enterbacter. - 09/16: Treated with Meropenem, flagyl, and micafungin, required vasopressors at OSH - 09/23: CT chest: bilateral pleural effusions, LLL atelectasis, Bilateral GGO - CT abd/pelvis: Diffuse hepatic steatosis. Morphologic changes of the liver suggesting underlying parenchymal disease. PLAN: - Follow infectious workup from admission with beta glucan - I have personally reviewed the Abx: stop merrem and vancomycin; start cefepime, continue micafungin with stop date for both of 09/26/21, which will complete 10 days of antimicrobial therapy. Cirrhosis (POA) EtOH Hepatitis (POA) - liver function improving at OSH; CT showed fatty infiltration of liver and severely distended gallbladder with no stones noted - CT abd/pelvis: Diffuse hepatic steatosis. Morphologic changes of the liver suggesting underlying parenchymal disease. - ammonia 21 on admission PLAN: - monitor - consider Hepatology consult when medically appropriate - having multiple liquid BMs, hold lactulose at this time Depression (POA) General Anxiety disorder (POA) - continue to monitor ?? HTN (POA) - hold any home medications at this time - prn medication for BP control Hypernatremia (POA) - Na 148 on admission PLAN: - stop FW - diurese with metolazone and lasix - recheck with AM labs Protein Calorie Malnutrition (POA) - previously on TPN at OSH, unclear why - Prealbumin 5.2; albumin 1.6; total protein 6.2 PLAN: - NPO, restart TF post extubation EtOH abuse (POA) - had been in behavioral health for inpatient detox - has previously developed alcohol withdrawal syndrome including seizure activity - consult to Addiction Medicine when appropriate - [facility] protocol Mobility - General mobility guidelines - Consult PT/OT ?? Feeding/Fluids: NPO, resume TFs post extubation Analgesia: acetaminophen Sedation: precedex Thromboprophylaxis: Heparin SQ, SCDs Head of bed: > 30 degrees Ulcer prophylaxis: PPI Glycemic control: FSBG monitoring, correction dose insulin Spontaneous breathing trial: Daily per vent separation protocol Bowel regimen: Last BM 09/24 Invasive lines: CVC 09/23/21, Morales 09/23/21, and PIV De-escalation: Cultures pending; continuemicafungin and cefepime??stop date 09/26 DISPO: - FULL CODE - MICU level care Patient was presented in multidisciplinary rounds. All vital signs, laboratory data, radiographic data, and events were discussed with pulmonary critical care attending, Jim Calzada MD. Pharmacy support services were present. Critical Care Performed by: Mark Smith NP Authorized by: Mark Smith NP Critical care provider statement: Critical care time (minutes): 60 Critical care time was exclusive of: Separately billable procedures and treating other patients andteaching time Critical care was time spent personally by me on the following activities: Development of treatmentplan with patient or surrogate, evaluation of patient's response to treatment, examination of patient, ventilator management, review of old charts, ordering and review of radiographic studies, ordering and review of laboratory studies and ordering and performing treatments and interventions Comments: This patient is critically ill with acute respiratory failure on mechanical ventilation. Thus far, I have spent the above referenced minutes, devoted solely to this patient managing life/organ supporting interventions that required physical assessment. This includes time spent making adjustments inventilator settings, reviewing and adjusting antibiotics and all medications, discussion of patientwith consultants and other care providers as well as updating patient and/or family (if patient by virtue of his/her condition is unable to participate in decision making). This does not include timespent performing separately billed procedures. Time is not concurrent with that of other providers. * Progress Notes - Jeanette Jones - 09/24/2021 1:36 PM EST Case Management Adult Initial Progress Note Rosendo Roach 46 y.o. female CSN: [id number] Admission: 09/23/2021 4:37 PM Primary Problem: Sepsis (CMS/HCC) PCP: None Emergency Contact: Extended Emergency Contact Information Primary Emergency Contact: Tati Senior Mobile Relation: Daughter Secondary Emergency Contact: Herminia Monsalve Mobile Relation: Mother Insurance: Primary Visit Coverage Payer Plan Sponsor Code Group Number Group Name [employer] [place] Primary Visit Coverage Subscriber Subscriber ID Subscriber Name Subscriber SSN Subscriber Address [id number] ROSENDO ROACH [id number] [place] [address] [place] [address] Patient information: lives alone, was at [facility] rehab program prior to OSH admission [address] [place] [address] Home Health / Home Infusion / Outpatient Dialysis Services: None reported. DME: none Living Will/Advance Directive/Power of School Bus Driver/Custodian /Guardian: none Additional Comments: CM notified of new admission and following for assistance. Per pulmonary team and chart review, patient has H chronic liver disease, alcohol use disorder who was admitted to [facility] on 09/10 from a detox center with encephalopathy and DTs. Patient developed fever, leukocytosis and was noted to have peritonitis secondary to tubo-ovarian abscess. Patient had ex-lap with drainage and washout 09/12. She has been admitted to the MICU for acute hypoxic respiratory failure requiring MV and positive for COVID-19. Patient remains on MV and SW contacted patients daughter Tati to complete CM initial assessment. Per daughter, patient was at [facility] substance abuse treatment program prior to OSH admission. Patient did live alone before entering rehab and she did not use any DME. SW explained role of CM and anticipated therapy f/u as appropriate. Patient is not medically ready for discharge planning services. CM will remain available and continue to follow. Jeanette Jones * Consults - Zee Duffy RD - 09/24/2021 1:23 PM EST Adult Nutrition Evaluation Note Rosendo Roach 46 y.o. female CSN: [id number] Room/Bed 134/134A Nutrition evaluation type: assessment Reason for evaluation: provider consult Nutrition to start tube feeding Hospital course: 46 year old female who transferred to [facility] for failure to wean, persistent fevers and continued acute encephalopathy. The patient was found incidentally COVID-19 positive and [facility] With acute hypoxic respiratory failure requiring mechanical ventilation Past medical/ surgical history: chronic liver disease, cirrhosis, alcohol use disorder admitted to OSH on 09/10 from a detox center. Imaging showed acute ascending colitis/ peritonitis and pneumoperitoneum s/p ex-lap on 09/12 and a tubo-ovarian abscess was noted. New sepsis 09/[address] concerning for bilateral pneumonia and lower lobe collapse. Started on TPN (unsure etiology), depression, HTN, protein calorie malnutrition, section, anxiety disorder, insomnia Social history: Pt reported that she has been smoking; hx of 32 pack-year smoking history. Current alcohol use of about 21-30 standard drinks per week. Additional comments: In precautions Vitals and Basic Assessment: BP: 127/76 Temp: 37.6 ??C (99.6 ??F) Invasive Ventilator Initiated (ETT/Trach Only): Yes Oxygen Therapy: Supplemental oxygen O2 Delivery Method: Mechanical ventilator [place] Coma Scale Score: 11 Javier/Cubbin Pressure Risk Score: 27 Last BM Date: 09/23/21 Edema: Generalized Allergies: No known food allergies Medications: cefepime, 2 g, Intravenous, q8h ??? enoxaparin, 40 mg, Subcutaneous, Daily with dinner ??? [START ON 09/25/2021] esomeprazole, 40 mg, Oral, Daily before breakfast ??? folic acid, 1 mg, Intravenous, Daily ??? insulin regular, 0-5 Units, Subcutaneous, q6h SUKHJINDER ??? micafungin, 100 mg, Intravenous, q24h ??? potassium chloride, 20 mEq, Intravenous, q1h ??? Povidone-Iodine, 1 Swab, Nasal, Daily ??? thiamine (Vitamin B-1) IV, 500 mg, Intravenous, q8h dextrose, 75 mL/hr, Last Rate: 75 mL/hr (09/24/21 1032) HYDROmorphone, 0.25-2 mg/hr, Last Rate: 0 mg/hr (09/24/21 1000) propofol, 10-50 mcg/kg/min (Order-Specific), Last Rate: 30 mcg/kg/min (09/24/21 0900) Meds were reviewed: Yes Labs: Labs in last 18 hours CBC WBC 15.95 (H) Hb 7.7 (L) Plt 373 (H) Hct 25.7 (L) ANC ?? INR ??, PTT ??, Anti-Xa ?? BMP Na 147 (H) Cl 109 (H) BUN 32 (H) Glu 73 (L) K 3.4 (L) Co2 30 (H) Cr 0.80 Ca 8.1 (L) iCa ?? Mg 1.8 (L), Phos 3.3 Lactate ?? (magnesium is low) LFT AST 69 (H) AlkPhos 108 (H) T Prot 5.9 (L) ALK 20 Bili 1.0 Alb ?? D.Bili ?? Lab Results Component Value Date HGBA1C 4.9 09/23/2021 Lab Results Component Value Date TRIG 178 (H) 09/24/2021 Anthropometrics: Height: 162.6 cm (5' 4.02 ) Weight: 83.8 kg (184 lb 11.9 oz) BMI (Calculated): 31.7 Weight Evaluation: Obese-Class 1 (BMI 30-34.9) Arthur Body Weight (kg): 54.5 Percent Arthur Body Weight: 153 Wt Readings from Last 12 Encounters: 09/24/21 83.8 kg (184 lb 11.9 oz) 02/26/21 70.2 kg (154 lb 12.2 oz) Estimated Needs: Kcal/ K-20 Kcal Provided: 9609-0061 Kcal Needs Based On: Current weight Gm Protein/ Kg : >/= 2 Protein Provided: 109 Protein Needs Based On: Arthur weight Fluid Provided: per MD Grams of CHO Percent calories from CHO: Current Nutrition Intake: Diet Order: NPO Diet Experience and Nutrition History: Diet Education Provided: Will monitor Pertinent home medications: Congregational needs: Nutrition Focused Physical Exam: Unable to Complete Exam: (P) Isolation precautions Physical exam performed on (date): Assessment of Malnutrition: Unable to Complete Exam: (P) Isolation precautions Nutrition Problem: Inadequate oral intake related to respiratory failure as evidenced by NPO diet order, mechanical ventilation Status of Nutrition Diagnosis: New Nutrition Interventions and Recommendations: --EN: Peptamen Intense VHP @20 ml/hr --Advance to eventual goal of 55 ml/hr (1210 ml/day) provides 1210 kcal (1604 kcal with current Propofol rate), 111g protein, 92g CHO, 5g fiber, 46g fat, 1016 ml water and 81% RDIs vit/min. --Free water flushes per MD/team Nutrition Monitoring and Goals: -- Nutrition to start -- Monitoring nutritional status and interventions, following per department acuity. Acuity Level: [address] * Progress Notes - Mark Smith NP - 09/24/2021 12:21 PM EST Associated Order(s): Critical Care Post-Procedure Diagnose(s): Respiratory failure with hypoxia, unspecified chronicity (CMS/HCC) MICU PROGRESS NOTE Events of past 24 hours: Yesterday the patient was transferred to [facility] for failure to wean, persistent fevers, and continued acute encephalopathy. On arrival the patient was found to be incidentally COVID19 positive and [facility] The patient was Taylor-CT scanned: a CT head negative for acute abnormality; CT Chest: bilateral pleural effusions, LLL atelectasis, Bilateral GGO; CT abd/pelvis: Diffuse hepatic steatosis. Morphologic changes of the liver suggesting underlying parenchymal disease. Overnight the patient was found to be hypoglycemic and was started on D10 at 50ml/hr. During AM rounds the patient remained sedated, but opening eyes to voice, unable to follow commands. Plan today: stop all sedation, start folic acid and thiamine, stop merrem and vancomycin and start cefepime based on OSH sensitivities. Review of Systems: Unable to obtain a complete 14 point review of systems due to patient status and intubation Last Recorded Vitals Blood pressure 127/76, pulse (!) 112, temperature 37.6 ??C (99.6 ??F), temperature source Axillary,resp. rate 15, height 1.626 m (5' 4.02 ), weight 83.8 kg (184 lb 11.9 oz), SpO2 99 %. Physical Exam GENERAL: No acute distress EYES: PERRL; anicteric sclerae; moist conjunctivae; no nystagmus or lid-lag HENT: Atraumatic, oropharynx clear, moist mucous membranes, no mucosal ulcerations, normal hard andsoft palate, OETT with mechanical ventilation NECK: Trachea midline, supple neck, no thyromegaly or lymphadenopathy RESP: Airway patent, good air movement, respirations non-labored, breath sounds clear to auscultation, no wheezing CARD: RRR; no murmur, rubs, or gallop TELE: Sinus tach Extremities: No edema, no cyanosis or clubbing; pulses palpable +2 GI: Midline incision covered by Covaderm; No organomegaly or masses; abdomen is soft, nontender andnondistended; bowel sounds present x 4 quadrants SKIN: Normal temperature, turgor and texture; no rashes, ulcers or subcutaneous nodules : Morales in place NEURO: sedated, unable to follow commands Results: Labs in last 18 hours CBC WBC 15.95 (H) Hb 7.7 (L) Plt 373 (H) Hct 25.7 (L) ANC ?? INR ??, PTT ??, Anti-Xa ?? BMP Na 147 (H) Cl 109 (H) BUN 32 (H) Glu 73 (L) K 3.4 (L) Co2 30 (H) Cr 0.80 Ca 8.1 (L) iCa ?? Mg 1.8 (L), Phos 3.3 Lactate ?? LFT AST 69 (H) AlkPhos 108 (H) T Prot 5.9 (L) ALK 20 Bili 1.0 Alb ?? D.Bili ?? Coags: INR Date Value Ref Range Status 09/23/2021 1.3 (H) 0.9 - 1.1 Final Prothrombin Time Date Value Ref Range Status 09/23/2021 16.7 (H) 12.0 - 14.3 sec Final aPTT Date Value Ref Range Status 09/23/2021 56 (H) 25 - 35 sec Final ABG: HCO3, Arterial Date Value Ref Range Status 09/23/2021 32.6 (H) 22 - 26 mmol/L Final FIO2 Date Value Ref Range Status 09/23/2021 50.0 % Final Body Temperature Date Value Ref Range Status 09/23/2021 37.0 Celsius Final VBG: No results found for: BDVEN, BEVEN, LDX2VGE, NFK2LJH, PHVEN, PO2VEN, D6XBCXHR, PAP0MJGSGVM, PHVENTEMP Lactate: Lactate, Arterial Date Value Ref Range Status 09/23/2021 1.0 0.5 - 1.6 mmol/L Final Medications cefepime, 2 g, Intravenous, q8h enoxaparin, 40 mg, Subcutaneous, Daily with dinner [START ON 09/25/2021] esomeprazole, 40 mg, Oral, Daily before breakfast folic acid, 1 mg, Intravenous, Daily insulin regular, 0-5 Units, Subcutaneous, q6h SUKHJINDER micafungin, 100 mg, Intravenous, q24h Povidone-Iodine, 1 Swab, Nasal, Daily thiamine (Vitamin B-1) IV, 500 mg, Intravenous, q8h dextrose, 75 mL/hr, Last Rate: 75 mL/hr (09/24/21 1032) HYDROmorphone, 0.25-2 mg/hr, Last Rate: 0 mg/hr (09/24/21 1000) propofol, 10-50 mcg/kg/min (Order-Specific), Last Rate: 30 mcg/kg/min (09/24/21 0900) PRN medications: acetaminophen, alteplase, dextrose OR dextrose 10 % OR glucose, dextrose OR dextrose 10 % OR glucose, glucagon (human recombinant), glucose, HYDROmorphone OR HYDROmorphone, Insert peripheral IV AND Saline lock IV AND sodium chloride Imaging (past 24h): I personally visualized and interpreted all of the imaging studies below and I agree with formal interpretation. CT Abdomen Pelvis wo IV Contrast Result Date: 09/23/2021 Narrative: Exam/Procedure: CT CHEST WO IV CONTRAST ordered by ZHANE VALENCIA, [id number] CLINICAL INDICATION: Respiratory failure; Sepsis TECHNIQUE: Multiple axial CT images were obtained from thoracic inlet through pubic symphysis without the administration of IV contrast. Reformatted images of the abdomen and pelvis in the coronal and sagittal planes were generated from the axial data set to facilitate diagnostic accuracy. Total DLP (Dose-Length Product): 2092.71 mGy.cm. Please note: The reportedvalue represents the total of one or more individual components during the CT acquisition on this date and at this time, and as such, the same value may appear in more than one CT report depending on the interpreting/reporting physicians. COMPARISON: Outside CT chest, abdomen and pelvis September 22, 2019 FINDINGS: Chest: Lymph Nodes and Mediastinum: No lymphadenopathy by CT size criteria. Calcified mediastinal lymph nodes. No mediastinal mass lesions. No suspicious thyroid findings. Cardiovascular: The heart and thoracic great vessels are normal in caliber. Lungs and Pleura: Endotracheal tube terminates above the raghavendra. Small bilateral pleural effusions, left more than right. Complete left lower lobe atelectasis. Ground glass opacities throughout the bilateral lungs similar in distribution to comparison with decreased consolidation. Musculoskeletal and Body Wall: No clearly aggressive bone lesions. Abdomen/Pelvis: Solid Abdominal Organs: Diffuse hepatic steatosis. Morphologic changes of the liver suggesting underlying parenchymal disease. No radiopaque gallstones. No biliary ductal dilatation. Unremarkable spleen, pancreas and bilateral adrenal glands. Punctate nonobstructing bilateral renal calculi. No hydronephrosis. GI Tract/Mesentery/Peritoneum: Nasogastric tube terminates in the mid stomach. Enteric feeding tube terminates near the pylorus. The large and small bowel ap pear normal in caliber. Mild colonic diverticulosis. Mesenteric edema. Pelvic Viscera: Bladder is decompressed with Morales catheter. Unremarkable uterus and adnexa. Lymph Nodes/Vasculature: No lymphadenopathy by CT size criteria. The aortoiliac vasculature is normal in caliber. Free Fluid: Small volume free fluid in the pelvis. Musculoskeletal and Body Wall: Mild body wall edema. Left anterior abdominal subcutaneous gas likely from prior injection. Postsurgical changes of the midline abdomen. Chest: Small bilateral pleural effusions, left greater than right, with complete left lower lobe atelectasis. Groundglass opacities throughout the bilateral lungs with decreased consolidation. Abdomen/Pelvis: Hepatic steatosis with morphologic changes of the liver suggesting cirrhosis. Small volumefree fluid in the pelvis. No organized fluid collection or abscess. CRITICAL RESULT: No. COMMUNICATION: Per this written report. Signed by Katalina Hauser on 09/23/2021 9:[address] Head wo IV Contrast Result Date: 09/23/2021 Narrative: Exam/Procedure: CT HEAD WO IV CONTRAST ordered by ZHANE VALENCIA, [id number] CLINICAL INDICATION: Mental status change, unknown cause TECHNIQUE: Spiral axial CT images of the head were obtained without contrast administration. Total DLP (Dose-Length Product): 2092. Please note: The reported value represents the total of one or more individual components during the CT acquisition on this date and at this time, and as such, the same value may appear in more than one CT report depending on the interpreting/reporting physicians. COMPARISON: Head CT from December 03, 2014 FINDINGS: Diagnostic Q uality: Adequate. Mild to moderate diffuse brain volume loss which has progressed compared to the prior CT and is greater than expected for age. There is no acute large cortical infarct, intracranialhemorrhage or large mass on this noncontrast study. Soft Tissues: No significant soft tissue swelling is present. Skull: There are no calvarial destructive lesions or fractures. Sinuses and Mastoids:Near complete opacification of the left sphenoid sinus. Mucosal thickening in the right sphenoid and bilateral ethmoid sinuses as well as left maxillary sinus. Partial opacification of the left mastoid air cells. These findings are nonspecific in an intubated patient. 1.No acute intracranial abnormality. 2.Mild to moderate diffuse brain volume loss which has progressed compared to the prior CT and is greater than expected for age. CRITICAL RESULT: No. COMMUNICATION: Per this written report. Signed by Pete Herrera on 09/23/2021 9:[address] Chest wo IV Contrast Result Date: 09/23/2021 Narrative: Exam/Procedure: CT CHEST WO IV CONTRAST ordered by ZHANE VALENCIA, [id number] CLINICAL INDICATION: Respiratory failure; Sepsis TECHNIQUE: Multiple axial CT images were obtained from thoracic inlet through pubic symphysis without the administration of IV contrast. Reformatted images of the abdomen and pelvis in the coronal and sagittal planes were generated from the axial data set to facilitate diagnostic accuracy. Total DLP (Dose-Length Product): 2091.71 mGy.cm. Please note: The reportedvalue represents the total of one or more individual components during the CT acquisition on this date and at this time, and as such, the same value may appear in more than one CT report depending on the interpreting/reporting physicians. COMPARISON: Outside CT chest, abdomen and pelvis September 22, 2019 FINDINGS: Chest: Lymph Nodes and Mediastinum: No lymphadenopathy by CT size criteria. Calcified mediastinal lymph nodes. No mediastinal mass lesions. No suspicious thyroid findings. Cardiovascular: The heart and thoracic great vessels are normal in caliber. Lungs and Pleura: Endotracheal tube terminates above the raghavendra. Small bilateral pleural effusions, left more than right. Complete left lower lobe atelectasis. Ground glass opacities throughout the bilateral lungs similar in distribution to comparison with decreased consolidation. Musculoskeletal and Body Wall: No clearly aggressive bone lesions. Abdomen/Pelvis: Solid Abdominal Organs: Diffuse hepatic steatosis. Morphologic changes of the liver suggesting underlying parenchymal disease. No radiopaque gallstones. No biliary ductal dilatation. Unremarkable spleen, pancreas and bilateral adrenal glands. Punctate nonobstructing bilateral renal calculi. No hydronephrosis. GI Tract/Mesentery/Peritoneum: Nasogastric tube terminates in the mid stomach. Enteric feeding tube terminates near the pylorus. The large and small bowel ap pear normal in caliber. Mild colonic diverticulosis. Mesenteric edema. Pelvic Viscera: Bladder is decompressed with Morales catheter. Unremarkable uterus and adnexa. Lymph Nodes/Vasculature: No lymphadenopathy by CT size criteria. The aortoiliac vasculature is normal in caliber. Free Fluid: Small volume free fluid in the pelvis. Musculoskeletal and Body Wall: Mild body wall edema. Left anterior abdominal subcutaneous gas likely from prior injection. Postsurgical changes of the midline abdomen. Chest: Small bilateral pleural effusions, left greater than right, with complete left lower lobe atelectasis. Groundglass opacities throughout the bilateral lungs with decreased consolidation. Abdomen/Pelvis: Hepatic steatosis with morphologic changes of the liver suggesting cirrhosis. Small volumefree fluid in the pelvis. No organized fluid collection or abscess. CRITICAL RESULT: No. COMMUNICATION: Per this written report. Signed by Katalina Hauser on 09/23/2021 9:32 PM XR Chest 1 View - bedside Result Date: 09/23/2021 Narrative: Exam/Procedure: XR CHEST 1 VIEW ordered by ZHANE VALENCIA, [id number] CLINICAL INDICATION: Intubation TECHNIQUE: XR CHEST 1 VIEW COMPARISON: December 03, 2014 FINDINGS: Endotracheal tube terminates 3 cm above the raghavendra. Enteric feeding tube and nasogastric tube terminates below the diaphragm. Bilateral perihilar and basilar opacities. No pleural effusion. No pneumothorax. Cardiac silhouette is within normal limits. Endotracheal tube terminates 3 cm above the raghavendra. Bilateral airspace opacities concerning for infection. CRITICAL RESULT: No. COMMUNICATION: Per this written report. Signed by Katalina Hauser on 09/23/2021 6:09 PM Assessment and Plan Rosendo Aiken is a 46 yoF with PMH chronic liver disease, alcohol use disorder admitted to [facility] on 09/10 from a detox center with encephalopathy and DTs. Developed fever, leukocytosis and was noted to have peritonitis secondary to tubo-ovarian abscess. She had ex-lap with drainage and washout 09/12. New Sepsis picture 09/[address] chest now concerning for bilateral PNA with lower lobe collapse. Received Merrem, daja, Cefepime, and Flagyl at OSH and had been started on TPN. ?? Acute hypoxic respiratory failure requiring mechanical ventilation (POA) COVID-19 + (POA) - Incidentally found to be COVID+ on admission to [facility] and [facility] - Likely secondary to septic shock with presumed Pneumonia - 09/23: CT chest: bilateral pleural effusions, LLL atelectasis, Bilateral GGO PLAN: - Continue mechanical ventilation, maintain SpO2 > 90% - Abx as outlined below - incidentally COVID+, minimal vent settings, if clinically worsening respiratory status consider starting Dexamethasone Acute Encephalopathy (POA) - Etiology: likely multifactorial: metabolic, sepsis, sedation with underlying Cirrhosis - CT head: negative for acute abnormality - TSH: 9.74, T4: 0.7, ammonia 21 PLAN: - UDS ordered, pending - stop propofol and hydromorphone - start Thiamine load 500 mg IV Q 8 hrs - folate 1mg daily - hold sedating medications as able Sepsis (POA) Tubo-ovarian Abscess s/p drainage & washout (POA) - Patient initially with Tubo-ovarian abscess, s/p drainage/washout/colostomy on 09/12. Intraoperative cultures + for C. Glabrata, E. Coli and Enterbacter. - 09/16: Treated with Meropenem, flagyl, and micafungin, required vasopressors at OSH - 09/23: CT chest: bilateral pleural effusions, LLL atelectasis, Bilateral GGO - CT abd/pelvis: Diffuse hepatic steatosis. Morphologic changes of the liver suggesting underlying parenchymal disease. PLAN: - Follow infectious workup from admission with beta glucan - I have personally reviewed the Abx: stop merrem and vancomycin; start cefepime, continue micafungin with stop date 09/29/21 Cirrhosis (POA) EtOH Hepatitis (POA) - liver function improving at OSH; CT showed fatty infiltration of liver and severely distended gallbladder with no stones noted - CT abd/pelvis: Diffuse hepatic steatosis. Morphologic changes of the liver suggesting underlying parenchymal disease. - ammonia 21 on admission PLAN: - monitor - consider Hepatology consult when medically appropriate Hypoglycemia - started on D10 at 50ml/hr PLAN: - increase D10 to 75ml/hr - DHT ordered - start TFs once DHT in place Depression (POA) General Anxiety disorder (POA) - continue to monitor ?? HTN (POA) - hold any home medications at this time - prn medication for BP control Protein Calorie Malnutrition (POA) - previously on TPN at OSH, unclear why - Prealbumin 5.2; albumin 1.6; total protein 6.2 PLAN: - Place feeding tube - Initiate enteral nutrition - Consult Nutrition Support Team EtOH abuse (POA) - had been in [facility] for inpatient detox - has previously developed alcohol withdrawal syndrome including seizure activity - consult to Addiction Medicine when appropriate Mobility - General mobility guidelines - Consult PT/OT ?? Feeding/Fluids: NPO, evaluate for enteral feeding Analgesia: Hydromorphone gtt Sedation: Propofol gtt Thromboprophylaxis: Heparin SQ, SCDs Head of bed: > 30 degrees Ulcer prophylaxis: PPI Glycemic control: FSBG monitoring, correction dose insulin Spontaneous breathing trial: Daily per vent separation protocol Bowel regimen: Last BM [employer] Invasive lines: CVC 09/23/21, Morales 09/23/21, and PIV De-escalation: Cultures pending; micafungin and meropenem ?? DISPO: - FULL CODE - MICU level care Patient was presented in multidisciplinary rounds. All vital signs, laboratory data, radiographic data, and events were discussed with pulmonary critical care attending, Jim Calzada MD. Pharmacy support services were present. Critical Care Performed by: Mark Smith NP Authorized by: Mark Smith NP Critical care provider statement: Critical care time (minutes): 60 Critical care time was exclusive of: Separately billable procedures and treating other patients andteaching time Critical care was time spent personally by me on the following activities: Development of treatmentplan with patient or surrogate, evaluation of patient's response to treatment, examination of patient, ventilator management, review of old charts, ordering and review of radiographic studies, ordering and review of laboratory studies and ordering and performing treatments and interventions Comments: This patient is critically ill with acute respiratory failure on mechanical ventilation and acute encephalopathy. Thus far, I have spent the above referenced minutes, devoted solely to this patient managing life/organ supporting interventions that required physical assessment. This includes time spent making adjustments in ventilator settings, reviewing and adjusting antibiotics and all medications, discussion of patient with consultants and other care providers as well as updating patient and/or family (if patient by virtue of his/her condition is unable to participate in decision making). This does not include time spent performing separately billed procedures. Time is not concurrent withthat of other providers. * Consults - Manda Gonzales OT - 09/24/2021 10:08 AM EST Occupational Therapy Attempt Patient Name: Rosendo Roach Today's Date: 09/24/2021 Patient was attempted to be seen by occupational therapy 09/24/2021 for OT Evaluation however patientnot appropriate due to medical status, RN reports sedation just turned off but pt not yet waking. Occupational therapy team will follow-up when medically appropriate. Written by Manda Gonzales OT on 09/24/21 at 3:42 PM. * Consults - Laz Garcia PT - 09/24/2021 10:07 AM EST Physical Therapy Attempt Patient Name: Rosendo Roach Today's Date: 09/24/2021 Patient was attempted to be seen by physical therapy 09/24/2021 for PT Evaluation however RN reportedthat pt is not following commands at this time after sedation was turned off recently this AM. Physical therapy team will defer at this time and follow-up as schedule permits. Written by Laz Garcia PT on 09/24/21 at 1:25 PM. * Nursing Note - Mirima Milner - 09/24/2021 3:20 AM EST Transport team left with patient to go to [place] * Care Plan - Jessica Talamantes, VANESA - 09/24/2021 3:20 AM EST Patient placed on transport teams ventilator at this time for transport to [id number]. Hand off report given to RT. Harshil * Nursing Note - Miriam Milner - 09/24/2021 2:45 AM EST Called patient daughter Verónica and advised that we are moving her mother to [facility] and explained why * Nursing Note - Miriam Milner - 09/24/2021 2:30 AM EST Called report to [facility] * H&P - Carmina Nath APRN - 09/23/2021 9:34 PM ESTAssociated Order(s): Critical Care Post-Procedure Diagnose(s): Respiratory failure with hypoxia, unspecified chronicity (CMS/HCC); Altered mental status, unspecified altered mental status type Images from the original note were not included. MICU H&P NOTE Chief complaint: Pneumonia and altered mental status History Of Present Illness Rosendo Roach is a 46 y.o. female with a PMH significant for alcohol dependence, DTs with seizure activity, HTN, depression and PARAG who was undergoing inpatient EtOH detox when she began to have altered mental status and was transferred to a medical floor Sep 10. She was treated with benzos and l actulose and was worked up for infectious process. Imaging showed acute ascending colitis, peritonitis and pneumoperitoneum. She underwent an ex-lap Sep 12 and a left tubo-ovarian abscess was noted which was evacuated and washed out. She developed septic shock requiring vasopressors for a short period. She was also started on meropenem, micafungin,cefepime and metronidazole. The ovarian abscess grew Nicanor glabrata, Enterobacter, and E coli. She remained intubated after surgery and imaging showed bilateral pneumonia - respiratory PCR was negative for flu and COVID-19. She failed an SBT and, despite, decreased sedation, would not follow commands. She was persistently febrile and repeat imaging demonstrated colon wall thickening, persistent pneumonia, pleural effusions and LLL collapse. It was felt that the patient needed increased care from multiple providers and she was transferred to [facility] 09/23. She is now admitted to the MICU-5 team for further evaluation and management. Secondary to the patient's current mental state, intubation and sedation, the information for this H&P is taken from the available medical record. Past Medical History EtOH dependence EtOH withdrawal with DTs and seizures Depression General anxiety disorder HTN Insomnia Surgical History section Exploratory laparotomy Family History Father alive at 74: HTN Mother alive at 69: cervical CA Social History She reports that she has been smoking cigarettes. She has a 32.00 pack-year smoking history. She does not have any smokeless tobacco history on file. She reports current alcohol use of about 21.0 - 30.0 standard drinks of alcohol per week. She reports that she does not use drugs. Reportedly drinks 1 'bottle' of Vodka daily. Occupational History none Occupational History ??? 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 Not on file Employer: No address on file. Unable to obtain due to patient condition and mechanical ventilation, no family present Travel History Relevant International Travel History: Travel Screening No screening recorded since 09/22/21 1637 Travel History Travel since 08/23/21 No documented travel since 08/23/21 Relevant Domestic Travel History: Unable to obtain due to patient condition and mechanical ventilation, no family present Immunizations not reviewed VACCINE/DOSE Flu Tetanus Pneumovax Shingles Unable to obtain due to patient condition and mechanical ventilation, no family present Allergies Patient has no known allergies. Medications Prior to Admission medications Medication Sig Start Date End Date Taking? Authorizing Provider Ascorbic Acid (Vitamin C) 500 MG capsule Take 1 capsule by mouth 1 (one) time each day. Historical Provider, Melatonin 5 MG tablet tablet Take 5 mg by mouth every night. Historical Provider, Multiple Vitamin (MULTI-VITAMIN DAILY PO) Take 1 tablet by mouth 1 (one) time each day. Historical Provider, PARoxetine (Paxil) 40 MG tablet Take 40 mg by mouth 1 (one) time each day in the morning. Historical Provider, QUEtiapine (SEROquel) 50 MG tablet Take 50 mg by mouth every night. Historical Provider, Current Facility-Administered Medications Medication Dose Route Frequency Provider Last Rate Last Admin ??? acetaminophen (Tylenol) tablet 650 mg 650 mg Oral q4h PRN Zhane J Hook, ASSEMBLY OPERATOR ??? dextrose 50 % solution 12.5 g 12.5 g Intravenous q15 min PRN Zhane J Hook, ASSEMBLY OPERATOR Or ??? dextrose 10 % (D10W) bolus 125 mL 12.5 g Intravenous q15 min PRN Zhane J Hook, ASSEMBLY OPERATOR Or ??? glucose (Glutose) 40 % oral gel 15 g 15 g Oral q15 min PRN Zhane J Hook, ASSEMBLY OPERATOR ??? dextrose 50 % solution 25 g 25 g Intravenous q15 min PRN Zhane J Hook, ASSEMBLY OPERATOR Or ??? dextrose 10 % (D10W) bolus 250 mL 25 g Intravenous q15 min PRN Zhane J Hook, ASSEMBLY OPERATOR Or ??? glucose (Glutose) 40 % oral gel 30 g 30 g Oral q15 min PRN Zhane J Hook, ASSEMBLY OPERATOR ??? [START ON 09/24/2021] enoxaparin (Lovenox) syringe 40 mg 40 mg Subcutaneous Daily with dinner Zhane J Hook, ASSEMBLY OPERATOR ??? glucagon (human recombinant) injection 1 mg 1 mg Intramuscular q15 min PRN Zhane J Hook, ASSEMBLY OPERATOR ??? glucose (Glutose) 40 % oral gel 15 g 15 g Oral Once PRN Zhane J Hook, ASSEMBLY OPERATOR ??? HYDROmorphone (Dilaudid) bolus from bag 0.25 mg 0.25 mg Intravenous q10 min PRN Zhane J Hook,ASSEMBLY OPERATOR Or ??? HYDROmorphone (Dilaudid) bolus from bag 0.5 mg 0.5 mg Intravenous q10 min PRN Zhane J Hook, ASSEMBLY OPERATOR ??? hydromorphone 20 mg in NS 100 mL infusion (200 mcg/mL) 0.25-2 mg/hr Intravenous Titrated Zhane J Hook, ASSEMBLY OPERATOR 2.5 mL/hr at 09/23/211847 0.5 mg/hr at 09/23/211847 ??? insulin regular (HumuLIN R,NovoLIN R) 100 units/mL injection - Correction - Standard Dose 0-5 Units Subcutaneous q6h SUKHJINDER Zhane Valencia ASSEMBLY OPERATOR ??? meropenem (Merrem) 2 g in sodium chloride 0.9 % 100 mL IVPB 2 g Intravenous q8h Zhane ValenciaASSEMBLY OPERATOR 50 mL/hr at 09/23/211941 2 g at 09/23/211941 ??? micafungin (Mycamine) 100 mg in sodium chloride 0.9 % 100 mL IVPB 100 mg Intravenous q24h Zhane Valencia ASSEMBLY OPERATOR 100 mg at 09/23/211942 ??? pantoprazole (Protonix) injection 40 mg 40 mg Intravenous Daily Zhane Valencia ASSEMBLY OPERATOR 40 mg at 09/23/211949 ??? Povidone-Iodine 5 % swab solution 1 Swab 1 Swab Nasal Daily Zhane Valencia APRN 1 Swab at 09/23/21 1710 ??? propofol (Diprivan) infusion 10 mg/mL 10-50 mcg/kg/min Intravenous Titrated Loren Dietrich MD 7.2 mL/hr at 09/23/211848 20 mcg/kg/min at 09/23/211848 ??? sodium chloride 0.9 % flush 3 mL 3 mL Intravenous PRN Zhane Valencia APRN ??? vancomycin (Vancocin) intermittent dosing 1 each 1 each Intravenous See admin instructions Zhane Valencia APRN Review of Systems: Unable to obtain a complete 14 point review of systems due to patient status and intubation Last Recorded Vitals Blood pressure 115/65, pulse 87, temperature 38.2 ??C (100.7 ??F), temperature source Axillary, resp. rate 20, height 1.626 m (5' 4.02 ), weight 60 kg (132 lb 4.4 oz), SpO2 99 %. Physical Exam GENERAL: ill-appearing female intubated and sedated EYES: PERR at 2mm, unable to comply for evaluation of EOM. No scleral icterus or conjunctivitis. Nonystagmus or lid-lag. HENT: Atraumatic, normocephalic. No visible lesions in anterior nares or oropharynx. NG and small-bore feeding tube in place. Mucous membranes moist. NECK: Supple. No appreciable thyromegaly or adenopathy. No JVD. Trachea appears to be midline. LIJ triple lumen secured with dressing and biopatch in place. RESP: Symmetrical chest expansion; no retractions. Breath sounds clear but coarse to auscultation bilaterally, decreased left base CARD: Regular rhythm with no appreciable murmur, gallop or rub. Telemetry tracing: Normal Sinus Rhythm Extremities: 2+ edema; no cyanosis, or clubbing. Bilateral radial pulses 1+ and pedal pulses palpable 2+. GI: Bowel sounds hypoactive, abdomen distended with abdominal wall edema present. No evidence of tenderness on palpation. No appreciable organomegaly or masses. SKIN: Warm, and pink. No rash noted, however, multiple skin tears noted on abdomen with possible allergic reaction to tape; ML abdominal incision with dressing dry and intact; old RLQ SID site with ostomy bag in place for minimal serous drainage. : Urinary catheter draining clear yellow urine. NEURO: Sedated with hydromorphone and propofol; opens eyes spontaneously but does not follow any commands. Nonverbal with OETT in place. Results: Coags: INR Date Value Ref Range Status 09/23/2021 1.3 (H) 0.9 - 1.1 Final Prothrombin Time Date Value Ref Range Status 09/23/2021 16.7 (H) 12.0 - 14.3 sec Final aPTT Date Value Ref Range Status 09/23/2021 56 (H) 25 - 35 sec Final CBC: WBC Count Date Value Ref Range Status 09/23/2021 15.00 (H) 3.70 - 10.30 10*3/uL Final HGB Date Value Ref Range Status 09/23/2021 7.7 (L) 11.2 - 15.7 g/dL Final HCT Date Value Ref Range Status 09/23/2021 26.0 (L) 34.0 - 45.0 % Final RBC Count Date Value Ref Range Status 09/23/2021 2.46 (L) 3.90 - 5.20 10*6/uL Final BMP: Sodium, Plasma Date Value Ref Range Status 09/23/2021 148 (H) 136 - 145 mmol/L Final Potassium, Plasma Date Value Ref Range Status 09/23/2021 3.6 (L) 3.7 - 4.8 mmol/L Final Calcium, Plasma Date Value Ref Range Status 12/03/2014 8.7 (L) 8.9 - 10.2 mg/dL Final Chloride, Plasma Date Value Ref Range Status 09/23/2021 109 (H) 97 - 107 mmol/L Final BUN, Plasma Date Value Ref Range Status 09/23/2021 32 (H) 7 - 21 mg/dL Final CO2, Plasma Date Value Ref Range Status 09/23/2021 30 (H) 22 - 29 mmol/L Final Creatinine, Plasma Date Value Ref Range Status 09/23/2021 0.78 0.60 - 1.10 mg/dL Final Glucose, Plasma Date Value Ref Range Status 09/23/2021 109 (H) 74 - 99 mg/dL Final Magnesium, Plasma Date Value Ref Range Status 09/23/2021 1.7 (L) 1.9 - 2.4 mg/dL Final Phosphorus, Plasma Date Value Ref Range Status 09/23/2021 4.2 2.5 - 4.5 mg/dL Final Add Ca++, LFT: AST, Plasma Date Value Ref Range Status 09/23/2021 63 (H) 11 - 32 U/L Final ALT, Plasma Date Value Ref Range Status 09/23/2021 20 8 - 33 U/L Final Alkaline Phosphatase, Plasma Date Value Ref Range Status 09/23/2021 111 (H) 35 - 104 U/L Final Total Bilirubin, Plasma Date Value Ref Range Status 09/23/2021 0.9 0.2 - 1.1 mg/dL Final ABG: HCO3, Arterial Date Value Ref Range Status 09/23/2021 32.6 (H) 22 - 26 mmol/L Final FIO2 Date Value Ref Range Status 09/23/2021 50.0 % Final Body Temperature Date Value Ref Range Status 09/23/2021 37.0 Celsius Final VBG: No results found for: BDVEN, BEVEN, BIE1IYG, GAE4EUH, PHVEN, PO2VEN, T1ONJFVL, BCF0MYYUGNM, PHVENTEMP Lactate: Lactate, Arterial Date Value Ref Range Status 09/23/2021 1.0 0.5 - 1.6 mmol/L Final Imaging (past 24h): I personally visualized and interpreted all of the imaging studies below and I agree with formal interpretation. CT Abdomen Pelvis wo IV Contrast CT Chest wo IV Contrast Result Date: 09/23/2021 FINDINGS: Chest: Lymph Nodes and Mediastinum: No lymphadenopathy by CT size criteria. Calcified mediastinal lymph nodes. No mediastinal mass lesions. No suspicious thyroid findings. Cardiovascular: The heart and thoracic great vessels are normal in caliber. Lungs and Pleura: Endotracheal tube terminates above the raghavendra. Small bilateral pleural effusions, left more than right. Complete left lowerlobe atelectasis. Ground glass opacities throughout the bilateral lungs similar in distribution to comparison with decreased consolidation. Musculoskeletal and Body Wall: No clearly aggressive bone le sions. Abdomen/Pelvis: Solid Abdominal Organs: Diffuse hepatic steatosis. Morphologic changes of the liver suggesting underlying parenchymal disease. No radiopaque gallstones. No biliary ductal dilatation. Unremarkable spleen, pancreas and bilateral adrenal glands. Punctate nonobstructing bilateralrenal calculi. No hydronephrosis. GI Tract/Mesentery/Peritoneum: Nasogastric tube terminates in themid stomach. Enteric feeding tube terminates near the pylorus. The large and small bowel appear normal in caliber. Mild colonic diverticulosis. Mesenteric edema. Pelvic Viscera: Bladder is decompressed with Morales catheter. Unremarkable uterus and adnexa. Lymph Nodes/Vasculature: No lymphadenopathy by CT size criteria. The aortoiliac vasculature is normal in caliber. Free Fluid: Small volume free fluid in the pelvis. Musculoskeletal and Body Wall: Mild body wall edema. Left anterior abdominal subcutaneous gas likely from prior injection. Postsurgical changes of the midline abdomen. Chest: Small bilateral pleural effusions, left greater than right, with complete left lower lobe atelectasis. Groundglass opacities throughout the bilateral lungs with decreased consolidation. Abdomen/Pelvis: Hepatic steatosis with morphologic changes of the liver suggesting cirrhosis. Smallvolume free fluid in the pelvis. No organized fluid collection or abscess. CRITICAL RESULT: No. COMMUNICATION: Per this written report. Signed by Katalina Hauser on 09/23/2021 9:32PM CT Head wo IV Contrast Result Date: 09/23/2021 1.No acute intracranial abnormality. 2.Mild to moderate diffuse brain volume loss which has progressed compared to the prior CT and is greater than expected for age. CRITICAL RESULT: No. COMMUNICATION: Per this written report. Signed by Pete Herrera on 09/23/2021 9:31 PM XR Chest 1 View - bedside Result Date: 09/23/2021 FINDINGS: Endotracheal tube terminates 3 cm above the raghavendra. Enteric feeding tube and nasogastric tube terminates below the diaphragm. Bilateral perihilar and basilar opacities. No pleural effusion.No pneumothorax. Cardiac silhouette is within normal limits. Endotracheal tube terminates 3 cm above the raghavendra. Bilateral airspace opacities concerning for infection. CRITICAL RESULT: No. COMMUNICATION: Per this written report. Signed by Katalina Hauser on 09/23/2021 6:09 PM Assessment/Plan Rosendo Aiken is a 46 yoF with PMH chronic liver disease, alcohol use disorder admitted to [facility] on 09/10 from a detox center with encephalopathy and DTs. Developed fever, leukocytosis and was noted to have peritonitis secondary to tubo-ovarian abscess. She had ex-lap with drainage and washout 09/12. New Sepsis picture 09/[address] chest now concerning for bilateral PNA with lower lobe collapse. Received Merrem, daja, Cefepime, and Flagyl at OSH and had been started on TPN. Acute hypoxic respiratory failure requiring mechanical ventilation (POA) - Likely secondary to septic shock with presumed Pneumonia - Antibiotic history and plan as listed below - Continue mechanical ventilation, maintain SpO2 > 90% - evaluate CT chest Sepsis (POA) - Patient initially with Tubo-ovarian abscess, s/p drainage/washout/colostomy on 09/12. Intraoperative cultures + for C. Glabrata, E. Coli and Enterbacter. She has been on the following regimen whileat the OSH - Patient has been on Meropenem, cefepime, flagyl, micafungin and febrile today to 102. Recent CT Abd at OSH with - CT chest at OSH concerning of bilateral PNA with lower lobe collapse - Will send blood cultures, PAL urine strep and legionella. - Will start on vancomycin, and will only continue meropenem and micafungin - Send beta glucan - Send for CT head/chest abdomen/pelvis Feeding - Patient started on TPN on 09/16 - Will obtain CT Abdomen to evaluate if able to start parenteral nutrition - consider GI consult for colitis and gallbladder distention - check prealbumin EtOH Hepatitis (POA) - liver function improving at OSH; CT showed fatty infiltration of liver and severely distended gallbladder with no stones noted - awaiting lab results - continue to monitor - CT abdomen - evaluate liver and gallbladder with previous distention noted EtOH abuse (POA) - had been in behavioral health for inpatient detox - has previously developed alcohol withdrawal syndrome including seizure activity - consult to Addiction Medicine when appropriate Depression and General Anxiety disorder (POA) - continue to monitor - currently sedated on hydromorphone and propofol while intubated - further evaluation when medically appropriate HTN (POA) - hold any home medications at this time - prn medication for BP control - continue to evaluate need for scheduled management Mobility - General mobility guidelines - Consult PT/OT Feeding/Fluids: NPO, evaluate for enteral feeding Analgesia: Hydromorphone gtt Sedation: Propofol gtt Thromboprophylaxis: Heparin SQ, SCDs Head of bed: > 30 degrees Ulcer prophylaxis: PPI Glycemic control: FSBG monitoring, correction dose insulin Spontaneous breathing trial: Daily per vent separation protocol Bowel regimen: Last BM HARNESS BUILDER Invasive lines: CVC 09/23/21, Morales 09/23/21, and PIV De-escalation: Cultures pending; continue empiric Vancomycin and micafungin and meropenem DISPO: - FULL CODE - MICU level care The patient is critically ill with: acute hypoxic respiratory failure requiring mechanical ventilation, continued altered mental status They require complex decision making. Principal problem: Acute hypoxic respiratory failure Active problem: Altered mental status, acute hypoxic respiratory failure Critical Care Performed by: Carmina Nath APRN Authorized by: Carmina Nath APRN Critical care provider statement: Critical care time (minutes): 65 Critical care time was exclusive of: Separately billable procedures and treating other patients Critical care was time spent personally by me on the following activities: Ordering and performing treatments and interventions, ordering and review of laboratory studies, ordering and review of radiographic studies, review of old charts, ventilator management, examination of patient and evaluationof patient's response to treatment I assumed subsequent critical care for this patient from a provider in my division, on the same day: no * Care Plan - Jessica Talamantes, DINING ROOM BUSSER - 09/23/2021 9:23 PM EST Problem: Device-Related Complication Risk (Mechanical Ventilation, Invasive) Goal: Optimal Device Function Outcome: Ongoing, Progressing * Pharmacy note - Isaac Villagomez PharmD - 09/23/2021 7:23 PM EST Pharmacokinetic Consult - Vancomycin HPI and Hospital Course: Rosendo Roach is a 46 y.o. female transferred from an outside facility after being hospitalized for ETOH withdrawal. Her inpatient stay was complicated by peritonitis for which she had an ex-lap on 09/12/21. She has received extensive antimicrobial therapy at the OSH. Her most recent regimen included meropenem, metronidazole, and micafungin which she has received sinceat least 09/16/21. Per transfer records patient reported to have been febrile during the days leading up to transfer. A chest CT reading on 09/22 was significant for bilateral consolidation, effusions and LLL collapse. Abdominal CT performed on the same day was significant for perinephric stranding, m esenteric edema, thickening of the sigmoid and descending colon. [facility] ICU team has continued meropenem, micafungin and vancomycin. Serum creatinine: 0.78 mg/dL 09/23/21 1734 Estimated creatinine clearance: 84.5 mL/min Actual weight: 60kg Assessment/Plan: Recommend to initiate vancomycin with a 1250mg loading dose. Will check first- dose levels 2 and 12 hours following the loading dose to assess vancomycin elimination. Will evaluate pharmacokinetic parameters in the AM (09/24/20) and reassess vancomycin management at that time. Thank you for this consult. Please reach out to pharmacy for any additional questions. Pharmacy will continue to follow. Submitted by: Isaac Villagomez PharmD 09/23/2021 6:40 PM documented in this encounter Plan of Treatment Not on file documented as of this encounter Procedures Procedure Name Priority Date/Time Associated Diagnosis Comments ECHO, ADULT TRANSTHORACIC COMPLETE Routine 10/15/2021 9:11 AM EST POCT GLUCOSE METER UNSOLICITED RESULTS Routine 10/15/2021 7:37 AM EST CBC WITH AUTO DIFFERENTIAL Routine 10/14/2021 8:39 PM EST MAGNESIUM, PLASMA Routine 10/14/2021 8:3 9 PM EST BASIC METABOLIC PANEL, PLASMA Routine 10/14/2021 8:39 PM EST POCT GLUCOSE METER UNSOLICITED RESULTS Routine 10/14/2021 8:07 PM EST POCT GLUCOSE METER UNSOLICITED RESULTS Routine 10/14/2021 4:54 PM EST POCT GLUCOSE METER UNSOLICITED RESULTS Routine 10/14/2021 12:04 PM EST POCT GLUCOSE METER UNSOLICITED RESULTS Routine 10/14/2021 10:38 AM EST POCT GLUCOSE METER UNSOLICITED RESULTS Routine 10/14/2021 8:53 AM EST POCT GLUCOSE METER UNSOLICITED RESULTS Routine 10/14/2021 8:04 AM EST POCT GLUCOSE METER UNSOLICITED RESULTS Routine 10/13/2021 7:56 PM EST POCT GLUCOSE METER UNSOLICITED RESULTS Routine 10/13/2021 4:36 PM EST POCT GLUCOSE METER UNSOLICITED RESULTS Routine 10/13/2021 12:37 PM EST POCT GLUCOSE METER UNSOLICITED RESULTS Routine 10/13/2021 8:50 AM EST POCT GLUCOSE METER UNSOLICITED RESULTS Routine 10/13/2021 8:00 AM EST POCT GLUCOSE METER UNSOLICITED RESULTS Routine 10/12/2021 7:34 PM EST POCT GLUCOSE METER UNSOLICITED RESULTS Routine 10/12/2021 4:34 PM EST POCT GLUCOSE METER UNSOLICITED RESULTS Routine 10/12/2021 12:09 PM EST POCT GLUCOSE METER UNSOLICITED RESULTS Routine 10/12/2021 8:57 AM EST POCT GLUCOSE METER UNSOLICITED RESULTS Routine 10/12/2021 8:17 AM EST POCT GLUCOSE METER UNSOLICITED RESULTS Routine 10/11/2021 8:58 PM EST POCT GLUCOSE METER UNSOLICITED RESULTS Routine 10/11/2021 4:21 PM EST POCT GLUCOSE METER UNSOLICITED RESULTS Routine 10/11/2021 12:46 PM EST POCT GLUCOSE METER UNSOLICITED RESULTS Routine 10/11/2021 9:13 AM EST POCT GLUCOSE METER UNSOLICITED RESULTS Routine 10/11/2021 8:29 AM EST EXTRA TUBE LAVENDER TOP Routine 10/11/2021 6:13 AM EST EXTRA TUBES Routine 10/11/2021 6:13 AM EST PHOSPHORUS, PLASMA Routine 10/11/2021 6: 13 AM EST MAGNESIUM, PLASMA Routine 10/11/2021 6:1 3 AM EST BASIC METABOLIC PANEL, PLASMA Routine 10/11/2021 6:13 AM EST POCT GLUCOSE METER UNSOLICITED RESULTS Routine 10/10/2021 7:51 PM EST POCT GLUCOSE METER UNSOLICITED RESULTS Routine 10/10/2021 4:12 PM EST WOUND OSTOMY EVAL AND TREAT Routine 10/10/2021 12:28 PM EST POCT GLUCOSE METER UNSOLICITED RESULTS Routine 10/10/2021 12:06 PM EST POCT GLUCOSE METER UNSOLICITED RESULTS Routine 10/10/2021 7:47 AM EST CBC WITH AUTO DIFFERENTIAL Routine 10/10/2021 6:27 AM EST C-REACTIVE PROTEIN, PLASMA Routine 10/10/2021 6:27 AM EST MAGNESIUM, PLASMA Routine 10/10/2021 6:2 7 AM EST BASIC METABOLIC PANEL, PLASMA Routine 10/10/2021 6:27 AM EST POCT GLUCOSE METER UNSOLICITED RESULTS Routine 10/09/2021 8:10 PM EST POCT GLUCOSE METER UNSOLICITED RESULTS Routine 10/09/2021 4:12 PM EST POCT GLUCOSE METER UNSOLICITED RESULTS Routine 10/09/2021 11:08 AM EST POCT GLUCOSE METER UNSOLICITED RESULTS Routine 10/09/2021 7:26 AM EST POCT GLUCOSE METER UNSOLICITED RESULTS Routine 10/09/2021 3:43 AM EST POCT GLUCOSE METER UNSOLICITED RESULTS Routine 10/08/2021 8:15 PM EST POCT GLUCOSE METER UNSOLICITED RESULTS Routine 10/08/2021 3:32 PM EST POCT GLUCOSE METER UNSOLICITED RESULTS Routine 10/08/2021 11:34 AM EST POCT GLUCOSE METER UNSOLICITED RESULTS Routine 10/08/2021 7:13 AM EST CBC WITH AUTO DIFFERENTIAL Routine 10/08/2021 3:57 AM EST C-REACTIVE PROTEIN, PLASMA Routine 10/08/2021 3:57 AM EST MAGNESIUM, PLASMA Routine 10/08/2021 3:5 7 AM EST RENAL FUNCTION PANEL, PLASMA Routine 10/08/2021 3:57 AM EST POCT GLUCOSE METER UNSOLICITED RESULTS Routine 10/07/2021 8:56 PM EST SARS COV-2/COVID-19 BY PCR Routine 10/07/2021 4:11 PM EST POCT GLUCOSE METER UNSOLICITED RESULTS Routine 10/07/2021 3:25 PM EST INSERT PERIPHERAL IV Routine 10/07/2021 2:30 PM EST POCT GLUCOSE METER UNSOLICITED RESULTS Routine 10/07/2021 11:51 AM EST POCT GLUCOSE METER UNSOLICITED RESULTS Routine 10/07/2021 8:07 AM EST POCT GLUCOSE METER UNSOLICITED RESULTS Routine 10/06/2021 7:58 PM EST POCT GLUCOSE METER UNSOLICITED RESULTS Routine 10/06/2021 4:19 PM EST SARS COV-2/COVID-19 BY PCR Routine 10/06/2021 12:36 PM EST POCT GLUCOSE METER UNSOLICITED RESULTS Routine 10/06/2021 12:30 PM EST POCT GLUCOSE METER UNSOLICITED RESULTS Routine 10/06/2021 7:57 AM EST MAGNESIUM, PLASMA Routine 10/06/2021 4:2 8 AM EST RENAL FUNCTION PANEL, PLASMA Routine 10/06/2021 4:28 AM EST POCT GLUCOSE METER UNSOLICITED RESULTS Routine 10/05/2021 8:34 PM EST POCT GLUCOSE METER UNSOLICITED RESULTS Routine 10/05/2021 5:03 PM EST POCT GLUCOSE METER UNSOLICITED RESULTS Routine 10/05/2021 12:06 PM EST POCT GLUCOSE METER UNSOLICITED RESULTS Routine 10/05/2021 8:04 AM EST D DIMER, QUANTITATIVE Routine 10/05/2021 4:16 AM EST CBC WITH AUTO DIFFERENTIAL Routine 10/05/2021 4:16 AM EST C-REACTIVE PROTEIN, PLASMA Routine 10/05/2021 4:16 AM EST PHOSPHORUS, PLASMA Routine 10/05/2021 4: 16 AM EST MAGNESIUM, PLASMA Routine 10/05/2021 4:1 6 AM EST COMPREHENSIVE METABOLIC PANEL, PLASMA Routine 10/05/2021 4:16 AM EST POCT GLUCOSE METER UNSOLICITED RESULTS Routine 10/04/2021 9:49 PM EST POCT GLUCOSE METER UNSOLICITED RESULTS Routine 10/04/2021 4:46 PM EST POCT GLUCOSE METER UNSOLICITED RESULTS Routine 10/04/2021 11:26 AM EST POCT GLUCOSE METER UNSOLICITED RESULTS Routine 10/04/2021 8:02 AM EST POCT GLUCOSE METER UNSOLICITED RESULTS Routine 10/04/2021 4:33 AM EST POCT GLUCOSE METER UNSOLICITED RESULTS Routine 10/03/2021 7:44 PM EST POCT GLUCOSE METER UNSOLICITED RESULTS Routine 10/03/2021 5:05 PM EST POCT GLUCOSE METER UNSOLICITED RESULTS Routine 10/03/2021 12:20 PM EST POCT GLUCOSE METER UNSOLICITED RESULTS Routine 10/03/2021 8:52 AM EST POCT GLUCOSE METER UNSOLICITED RESULTS Routine 10/03/2021 8:03 AM EST POCT GLUCOSE METER UNSOLICITED RESULTS Routine 10/03/2021 5:38 AM EST POCT GLUCOSE METER UNSOLICITED RESULTS Routine 10/03/2021 5:24 AM EST POCT GLUCOSE METER UNSOLICITED RESULTS Routine 10/03/2021 5:03 AM EST D DIMER, QUANTITATIVE Routine 10/03/2021 3:08 AM EST CBC WITH AUTO DIFFERENTIAL Routine 10/03/2021 3:08 AM EST C-REACTIVE PROTEIN, PLASMA Routine 10/03/2021 3:08 AM EST PHOSPHORUS, PLASMA Routine 10/03/2021 3: 08 AM EST MAGNESIUM, PLASMA Routine 10/03/2021 3:0 8 AM EST COMPREHENSIVE METABOLIC PANEL, PLASMA Routine 10/03/2021 3:08 AM EST POCT GLUCOSE METER UNSOLICITED RESULTS Routine 10/02/2021 11:06 PM EST POCT GLUCOSE METER UNSOLICITED RESULTS Routine 10/02/2021 6:08 PM EST POCT GLUCOSE METER UNSOLICITED RESULTS Routine 10/02/2021 11:22 AM EST POCT GLUCOSE METER UNSOLICITED RESULTS Routine 10/02/2021 6:24 AM EST CBC WITH AUTO DIFFERENTIAL Routine 10/02/2021 1:38 AM EST PHOSPHORUS, PLASMA Routine 10/02/2021 1: 38 AM EST MAGNESIUM, PLASMA Routine 10/02/2021 1:3 8 AM EST BASIC METABOLIC PANEL, PLASMA Routine 10/02/2021 1:38 AM EST POCT GLUCOSE METER UNSOLICITED RESULTS Routine 10/01/2021 11:28 PM EST POCT GLUCOSE METER UNSOLICITED RESULTS Routine 10/01/2021 5:16 PM EST XR ABDOMEN 1 VIEW Routine 10/01/2021 2:5 5 PM EST POCT GLUCOSE METER UNSOLICITED RESULTS Routine 10/01/2021 11:26 AM EST POCT GLUCOSE METER UNSOLICITED RESULTS Routine 10/01/2021 5:34 AM EST CBC WITH AUTO DIFFERENTIAL Routine 10/01/2021 2:54 AM EST PHOSPHORUS, PLASMA Routine 10/01/2021 2: 54 AM EST MAGNESIUM, PLASMA Routine 10/01/2021 2:5 4 AM EST BASIC METABOLIC PANEL, PLASMA Routine 10/01/2021 2:54 AM EST POCT GLUCOSE METER UNSOLICITED RESULTS Routine 10/01/2021 12:05 AM EST POCT GLUCOSE METER UNSOLICITED RESULTS Routine 09/30/2021 5:28 PM EST XR ABDOMEN 1 VIEW Routine 09/30/2021 5:2 0 PM EST PHOSPHORUS, PLASMA Add-On 09/30/2021 12 :55 PM EST MAGNESIUM, PLASMA Routine 09/30/2021 12: 55 PM EST COMPREHENSIVE METABOLIC PANEL, PLASMA Routine 09/30/2021 12:55 PM EST POCT GLUCOSE METER UNSOLICITED RESULTS Routine 09/30/2021 12:13 PM EST POCT GLUCOSE METER UNSOLICITED RESULTS Routine 09/30/2021 8:40 AM EST POCT GLUCOSE METER UNSOLICITED RESULTS Routine 09/30/2021 5:57 AM EST POCT GLUCOSE METER UNSOLICITED RESULTS Routine 09/29/2021 11:23 PM EST POCT GLUCOSE METER UNSOLICITED RESULTS Routine 09/29/2021 5:52 PM EST POCT GLUCOSE METER UNSOLICITED RESULTS Routine 09/29/2021 11:26 AM EST POCT GLUCOSE METER UNSOLICITED RESULTS Routine 09/29/2021 6:37 AM EST POCT GLUCOSE METER UNSOLICITED RESULTS Routine 09/29/2021 5:18 AM EST POCT GLUCOSE METER UNSOLICITED RESULTS Routine 09/29/2021 3:44 AM EST IONIZED CALCIUM, WHOLE BLOOD Routine 09/29/2021 1:15 AM EST CBC W/O DIFFERENTIAL Routine 09/29/2021 1:15 AM EST PHOSPHORUS, PLASMA Routine 09/29/2021 1: 15 AM EST MAGNESIUM, PLASMA Routine 09/29/2021 1:1 5 AM EST BASIC METABOLIC PANEL, PLASMA Routine 09/29/2021 1:15 AM EST POCT GLUCOSE METER UNSOLICITED RESULTS Routine 09/29/2021 12:57 AM EST POCT GLUCOSE METER UNSOLICITED RESULTS Routine 09/29/2021 12:29 AM EST POCT GLUCOSE METER UNSOLICITED RESULTS Routine 09/28/2021 11:10 PM EST POCT GLUCOSE METER UNSOLICITED RESULTS Routine 09/28/2021 5:31 PM EST POCT GLUCOSE METER UNSOLICITED RESULTS Routine 09/28/2021 11:14 AM EST IONIZED CALCIUM, SERUM Routine 09/28/2021 11:12 AM EST BETA GLUCAN SERUM (SO) Routine 09/28/2021 11:12 AM EST POCT GLUCOSE METER UNSOLICITED RESULTS Routine 09/28/2021 6:35 AM EST POCT GLUCOSE METER UNSOLICITED RESULTS Routine 09/27/2021 11:44 PM EST IONIZED CALCIUM, WHOLE BLOOD Routine 09/27/2021 11:42 PM EST CBC W/O DIFFERENTIAL Routine 09/27/2021 11:42 PM EST PHOSPHORUS, PLASMA Routine 09/27/2021 11 :42 PM EST MAGNESIUM, PLASMA Routine 09/27/2021 11: 42 PM EST BASIC METABOLIC PANEL, PLASMA Routine 09/27/2021 11:42 PM EST LIPASE, PLASMA Routine 09/27/2021 6:19 PM EST POCT GLUCOSE METER UNSOLICITED RESULTS Routine 09/27/2021 5:44 PM EST POCT GLUCOSE METER UNSOLICITED RESULTS Routine 09/27/2021 12:[address] ABDOMEN PELVIS W IV CONTRAST Routine 09/27/2021 10:22 AM EST CLOSTRIDIODES (CLOSTRIDIUM) DIFFICILE,PCR Routine 09/27/2021 9:27 AM EST XR ABDOMEN 1 VIEW Routine 09/27/2021 8:0 5 AM EST POCT GLUCOSE METER UNSOLICITED RESULTS Routine 09/27/2021 6:25 AM EST IONIZED CALCIUM, WHOLE BLOOD Routine 09/27/2021 4:43 AM EST PROTHROMBIN TIME(PT) / INR Routine 09/27/2021 1:26 AM EST CBC W/O DIFFERENTIAL Routine 09/27/2021 1:26 AM EST TRIGLYCERIDES, PLASMA Timed 09/27/2021 1:26 AM EST PHOSPHORUS, PLASMA Routine 09/27/2021 1: 26 AM EST MAGNESIUM, PLASMA Routine 09/27/2021 1:2 6 AM EST BASIC METABOLIC PANEL, PLASMA Routine 09/27/2021 1:26 AM EST POCT GLUCOSE METER UNSOLICITED RESULTS Routine 09/27/2021 12:57 AM EST POCT GLUCOSE METER UNSOLICITED RESULTS Routine 09/26/2021 5:54 PM EST SODIUM, PLASMA Timed 09/26/2021 3:43 PM EST POCT GLUCOSE METER UNSOLICITED RESULTS Routine 09/26/2021 11:19 AM EST SODIUM, PLASMA Timed 09/26/2021 9:45 AM EST POCT GLUCOSE METER UNSOLICITED RESULTS Routine 09/26/2021 5:11 AM EST XR CHEST 1 VIEW Routine 09/26/2021 4:05 AM EST PROTHROMBIN TIME(PT) / INR Routine 09/26/2021 2:41 AM EST CBC W/O DIFFERENTIAL Routine 09/26/2021 2:41 AM EST SODIUM, PLASMA Timed 09/26/2021 2:41 AM EST PHOSPHORUS, PLASMA Routine 09/26/2021 2: 41 AM EST MAGNESIUM, PLASMA Routine 09/26/2021 2:4 1 AM EST COMPREHENSIVE METABOLIC PANEL, PLASMA Routine 09/26/2021 2:41 AM EST POCT GLUCOSE METER UNSOLICITED RESULTS Routine 09/25/2021 11:50 PM EST SODIUM, PLASMA Timed 09/25/2021 10:50 PM EST POCT GLUCOSE METER UNSOLICITED RESULTS Routine 09/25/2021 6:10 PM EST IONIZED CALCIUM, WHOLE BLOOD Routine 09/25/2021 4:40 PM EST SODIUM, PLASMA Timed 09/25/2021 4:40 PM EST POCT GLUCOSE METER UNSOLICITED RESULTS Routine 09/25/2021 12:32 PM EST XR ABDOMEN 1 VIEW STAT 09/25/2021 12: 22 PM EST SODIUM, PLASMA Timed 09/25/2021 10:43 AM EST EXTUBATION Routine 09/25/2021 10:02 AM EST OH CRITICAL CARE, E/M 30-74 MINUTES Routine 09/25/2021 9:31 AM EST Respiratory failure with hypoxia, unspecified chronicity (CMS/HCC) Altered mental status, unspecified altered mental status type CBC W/O DIFFERENTIAL STAT 09/25/2021 8:35 AM EST POCT GLUCOSE METER UNSOLICITED RESULTS Routine 09/25/2021 6:44 AM EST TRANSFUSE RED BLOOD CELLS Routine 09/25/2021 6:22 AM EST TYPE AND SCREEN Routine 09/25/2021 5:19 AM EST PREPARE RBC Routine 09/25/2021 5:04 AM EST IONIZED CALCIUM, WHOLE BLOOD Routine 09/25/2021 4:07 AM EST PROTHROMBIN TIME(PT) / INR Routine 09/25/2021 4:07 AM EST CBC W/O DIFFERENTIAL Routine 09/25/2021 4:07 AM EST SODIUM, PLASMA Timed 09/25/2021 4:07 AM EST PHOSPHORUS, PLASMA Routine 09/25/2021 4: 07 AM EST MAGNESIUM, PLASMA Routine 09/25/2021 4:0 7 AM EST COMPREHENSIVE METABOLIC PANEL, PLASMA Routine 09/25/2021 4:07 AM EST XR CHEST 1 VIEW Routine 09/25/2021 2:25 AM EST POCT GLUCOSE METER UNSOLICITED RESULTS Routine 09/25/2021 12:47 AM EST SODIUM, PLASMA Timed 09/24/2021 9:37 PM EST POCT GLUCOSE METER UNSOLICITED RESULTS Routine 09/24/2021 5:11 PM EST PHOSPHORUS, PLASMA Routine 09/24/2021 2: 38 PM EST MAGNESIUM, PLASMA Routine 09/24/2021 2:3 8 PM EST BASIC METABOLIC PANEL, PLASMA Routine 09/24/2021 2:38 PM EST XR ABDOMEN 1 VIEW Routine 09/24/2021 12: 33 PM EST OH CRITICAL CARE, E/M 30-74 MINUTES Routine 09/24/2021 12:21 PM EST Respiratory failure with hypoxia, unspecified chronicity (CMS/HCC) POCT GLUCOSE METER UNSOLICITED RESULTS Routine 09/24/2021 11:28 AM EST COMPREHENSIVE URINE DRUG SCREENING,QUALITATIVE ASSAY, >= 27 DRUG CLASSES Routine 09/24/2021 10:57 AM EST POCT GLUCOSE METER UNSOLICITED RESULTS Routine 09/24/2021 9:39 AM EST URINALYSIS MICROSCOPIC FOR UA REFLEX Routine 09/24/2021 9:27 AM EST URINALYSIS WITH REFLEX MICROSCOPIC Routine 09/24/2021 9:27 AM EST URINE CULTURE Routine 09/24/2021 9:27 AM EST FOLATE, SERUM Routine 09/24/2021 9:27 AM EST VITAMIN B12, SERUM Routine 09/24/2021 9: 27 AM EST END TIDAL CO2 MONITORING Routine 09/24/2021 8:00 AM EST VENTILATOR - ADULT Routine 09/24/2021 8: 00 AM EST SBT - SPONTANEOUS BREATHING TRIAL Routine 09/24/2021 7:00 AM EST POCT GLUCOSE METER UNSOLICITED RESULTS Routine 09/24/2021 5:49 AM EST POCT GLUCOSE METER UNSOLICITED RESULTS Routine 09/24/2021 4:16 AM EST POCT GLUCOSE METER UNSOLICITED RESULTS Routine 09/24/2021 3:45 AM EST CBC W/O DIFFERENTIAL Routine 09/24/2021 1:32 AM EST C-REACTIVE PROTEIN, PLASMA STAT Add-on 09/24/2021 1:32 AM EST TRIGLYCERIDES, PLASMA Timed 09/24/2021 1:32 AM EST TSH STAT Add-on 09/24/2021 1:32 AM EST FREE T4, PLASMA STAT Add-on 09/24/2021 1:32 AM EST PHOSPHORUS, PLASMA STAT Add-on 09/24/2021 1: 32 AM EST MAGNESIUM, PLASMA STAT Add-on 09/24/2021 1:3 2 AM EST VANCOMYCIN, PEAK, PLASMA Routine 09/24/2021 1:32 AM EST HEPATIC FUNCTION PANEL STAT Add-on 09/24/2021 1:32 AM EST BASIC METABOLIC PANEL, PLASMA Routine 09/24/2021 1:32 AM EST POCT GLUCOSE METER UNSOLICITED RESULTS Routine 09/24/2021 12:06 AM EST POCT GLUCOSE METER UNSOLICITED RESULTS Routine 09/23/2021 11:34 PM EST SARS COV2 COVID 19/INFLUENZA A, B Routine 09/23/2021 11:05 PM EST OH CRITICAL CARE, E/M 30-74 MINUTES Routine 09/23/2021 9:34 PM EST Respiratory failure with hypoxia, unspecified chronicity (CMS/HCC) Altered mental status, unspecified altered mental status type CT CHEST WO IV CONTRAST STAT 09/23/2021 8:[address] HEAD WO IV CONTRAST STAT 09/23/2021 8:[address] ABDOMEN PELVIS WO IV CONTRAST STAT 09/23/2021 8:51 PM EST END TIDAL CO2 MONITORING Routine 09/23/2021 8:00 PM EST VENTILATOR - ADULT Routine 09/23/2021 8: 00 PM EST ECG ADULT Routine 09/23/2021 7:46 PM EST LACTATE, VENOUS STAT 09/23/2021 6:31 PM EST URINALYSIS MICROSCOPIC FOR UA REFLEX Routine 09/23/2021 6:27 PM EST STREPTOCOCCUS PNEUMONIAE URINARY ANTIGEN Routine 09/23/2021 6:27 PM EST LEGIONELLA PNEUMOPHILIA URINARY ANTIGEN Routine 09/23/2021 6:27 PM EST , URINE Routine 09/23/2021 6:27 PM EST URINALYSIS WITH REFLEX MICROSCOPIC Routine 09/23/2021 6:27 PM EST BLOOD CULTURE (AEROBIC/ANAEROBIC SET) STAT 09/23/2021 6:07 PM EST BETA-D GLUCAN (FUNGITELL), BAL (SO) Routine 09/23/2021 5:56 PM EST POCT ARTERIAL BLOOD GAS GEM UNSOLICITED RESULTS Routine 09/23/2021 5:49 PM EST XR CHEST 1 VIEW STAT 09/23/2021 5:42 PM EST ACUTE HEPATITIS PANEL Routine 09/23/2021 5:35 PM EST BLOOD CULTURE (AEROBIC/ANAEROBIC SET) STAT 09/23/2021 5:35 PM EST APTT STAT 09/23/2021 5:35 PM EST PROTHROMBIN TIME(PT) / INR STAT 09/23/2021 5:35 PM EST PROCALCITONIN, PLASMA Routine 09/23/2021 5:34 PM EST N-TERMINAL PROBNP, PLASMA Routine 09/23/2021 5:34 PM EST CBC WITH AUTO DIFFERENTIAL STAT 09/23/2021 5:34 PM EST PREALBUMIN, PLASMA Routine 09/23/2021 5: 34 PM EST PHOSPHORUS, PLASMA STAT 09/23/2021 5: 34 PM EST MAGNESIUM, PLASMA STAT 09/23/2021 5:3 4 PM EST LIPASE, PLASMA Routine 09/23/2021 5:34 PM EST AMMONIA, PLASMA STAT 09/23/2021 5:34 PM EST COMPREHENSIVE METABOLIC PANEL, PLASMA STAT 09/23/2021 5:34 PM EST HEMOGLOBIN A1C Routine 09/23/2021 5:33 PM EST WOUND OSTOMY EVAL AND TREAT Routine 09/23/2021 5:09 PM EST END TIDAL CO2 MONITORING Routine 09/23/2021 5:03 PM EST END TIDAL CO2 MONITORING Routine 09/23/2021 5:03 PM EST END TIDAL CO2 MONITORING Routine 09/23/2021 5:03 PM EST SBT - SPONTANEOUS BREATHING TRIAL Routine 09/23/2021 5:03 PM EST VENTILATOR - ADULT Routine 09/23/2021 5: 03 PM EST VENTILATOR - ADULT Routine 09/23/2021 5: 03 PM EST POCT GLUCOSE METER UNSOLICITED RESULTS Routine 09/23/2021 4:[address] CHEST WO IV CONTRAST Routine 09/22/2021 1:45 PM EST Encounter for other specified special examinations CT ABDOMEN PELVIS WO IV CONTRAST Routine 09/22/2021 1:40 PM EST Encounter for other specified special examinations XR ABDOMEN 1 VIEW Routine 09/21/2021 8:2 5 AM EST Encounter for other specified special examinations XR CHEST 1 VIEW Routine 09/20/2021 5:00 AM EST Encounter for other specified special examinations XR ABDOMEN 1 VIEW Routine 09/19/2021 2:5 5 PM EST Encounter for other specified special examinations CT ABDOMEN PELVIS W IV CONTRAST Routine 09/18/2021 1:20 PM EST Encounter for other specified special examinations XR CHEST 1 VIEW Routine 09/16/2021 10:10 AM EST Encounter for other specified special examinations XR ABDOMEN 2 VIEWS Routine 09/16/2021 6: 30 AM EST Encounter for other specified special examinations US ABDOMEN Routine 09/13/2021 12:00 AM EST Encounter for other specified special examinations CT ABDOMEN PELVIS WO IV CONTRAST Routine 09/12/2021 12:45 PM EST Encounter for other specified special examinations US ABDOMEN Routine 09/11/2021 3:20 PM EST Encounter for other specified special examinations documented in this encounter Results * ECHO, ADULT TRANSTHORACIC COMPLETE (10/15/2021 9:11 AM EST) BSA 1.9 m2 CELIO ISCV MV E Vmax 70.8 cm/s CELIO ISCV MV A Vmax 92.2 cm/s CELIO ISCV MV E/A 0.8 cm/s CELIO ISCV TR Vmax 223.0 cm/s CELIO ISCV TR Max PG 20 mmHG CELIO ISCV PA OH(ACCEL) 34.4 mmHg CELIO ISCV Baseline Systolic BP 95 CELIO ISCV Baseline Diastolic BP 67 CELIO ISCV LVIDs 37 mm CELIO ISCV IVSd 9 mm CELIO ISCV LVIDd 47 mm CELIO ISCV LVPWd 8 mm CELIO ISCV LV MASS(C)D 134 g CELIO ISCV LV RWT 0.36 mm CELIO ISCV LV Lat e' Velocity 9.8 cm/s CELIO ISCV LV Sept e' Dre 6.8 cm/s CELIO ISCV Lat E/e' 7.2 CELIO ISCV Sep E/e' 10.4 CELIO ISCV Avg E/e' 8.8 CELIO ISCV LAV(MOD-bp) Indexed 18 mL/m2 CELIO ISCV LAV(MOD-4ch) 33 mL CELIO ISCV LAV(MOD-2ch) 36 mL CELIO ISCV RVSP 28 mmHg CELIO ISCV RAP systole 8 mmHg CELIO ISCV Anatomical Region Laterality Modality Echocardiography Narrative 10/15/2021 1:38 PM EST ?The left ventricle is normal size. The left ventricular systolic function is normal.The LVEF is visually estimated at 55 - 60%. The left ventricular wall motion is normal. ?Right ventricle size is normal. The right ventricular systolic function is normal. RVSP is normal < 35 mmHg. ?Normal LV filling pressure. ?No significant valvular abnormalities No prior echo available for comparison. Left Ventricle The left ventricle is normal size. There is normal left ventricular myocardial thickness and mass. The left ventricular systolic function is normal.The LVEF is visually estimated at 55 - 60%. The left ventricular wall motion is normal. The left ventricular filling pressure is normal. Right Ventricle Right ventricle size is normal. The right ventricular systolic function is normal. The estimated global right ventricular systolic function based upon the TDI maximal systolic velocity is normal (>=9.5 cm/s). Right ventricular systolic pressure is normal (<35mmHg). Left Atrium The left atrial size is normal with an indexed volume of 16-34 mL/m2. Right Atrium The right atrial size is normal. IVC/SVC The IVC was not well visualized, and an assumed pressure of 8mmHg was used for calculations. Mitral Valve The mitral valve is normal in appearance with no evidence of mitral valve prolapse. There is trace mitral regurgitation. There is no mitral stenosis. Tricuspid Valve The tricuspid valve is normal in appearance. There is mild tricuspid regurgitation. There is no tricuspid stenosis. Aortic Valve The aortic valve appears to be trileaflet. There is no valvular regurgitation. There is no hemodynamically significant valvular aortic stenosis. Pulmonic Valve The pulmonic valve was not well visualized. There is no pulmonic regurgitation. There is no pulmonic stenosis. Pericardium No pericardial effusion. Great Vessels The aortic root is normal in size. The ascending aorta is not well visualized. Study Details A complete transthoracic echocardiogram using two-dimensional (2D), m-mode, color and spectral flow Doppler imaging was performed. Overall the study quality was adequate. BP: 95/67 mmHg. Heart rate was tachycardic. BSA: 1.9 m2. The heart rhythm during this exam was most suggestive of a sinus rhythm. Mark Smith APRN, [facility] CV ECHO PROCEDUR ES Final Result * POCT glucose meter (10/15/2021 7:37 AM EST) [facility] POCT Glucose 78 74 - 99 mg/dL 10/15/2021 7:40 AM EST [facility] Comment:Accuracy of a glucos e result obtained from a capillary whole blood specimen relies upon adequate, non-compromised capillary blood flow. If the capillary glucose result is not consistent with the patient's clinical signs and symptoms, glucose testing should be repeated with either an arterial or venous sample on the glucometer or sent to the main labortory for testing. Comment 10/15/2021 7:40 AM EST [facility] Manager Special Events ID Alba Mckoy 10/15/2021 7:40 AM EST [facility] Device ID [id number] 10/15/2021 7:40 AM EST [facility] Specimen Type POC Capillary 10/15/2021 7:40 AM EST [facility] Blood Capillary blood specimen / Unknown 10/15/2021 7:37 AM EST 10/15/2021 7:40 AM EST Ena Brennan MD LAB POINT OF CARE TE ST DOCKED DEVICE UNSOLICITED RESULTS Final Result [facility] [address] [place] [id number] * (ABNORMAL) Magnesium (10/14/2021 8:39 PM EST) [facility] Magnesium, Plasma 1.7(L) 1.9 - 2.4 mg/dL 10/14/2021 9:14 PM EST [facility] Blood Venous blood specimen / Unknown Venipuncture / Unknown 10/14/2021 8:39 PM EST 10/14/2021 8:42 PM EST us Joyce Lowery MD LAB BLOOD ORDERABLES Final Result [facility] [address] [place] [address] * Basic metabolic panel (10/14/2021 8:39 PM EST) Glucose, Plasma 86 74 - 99 mg/dL 10/14/2021 9:14 PM EST [facility] BUN, Plasma 7 7 - 21 mg/dL 10/14/2021 9:14 PM EST [facility] Creatinine, Plasma 0.80 0.60 - 1.10 mg/dL 10/14/2021 9:14 PM EST [facility] BUN/Creatinine Ratio 9 10/14/2021 9:14 PM EST [facility] Sodium, Plasma 137 136 - 145 mmol/L 10/14/2021 9:14 PM EST [facility] Potassium, Plasma 4.4 3.7 - 4.8 mmol/L 10/14/2021 9:14 PM EST [facility] Chloride, Plasma 101 97 - 107 mmol/L 10/14/2021 9:14 PM EST [facility] CO2, Plasma 27 22 - 29 mmol/L 10/14/2021 9:14 PM EST [facility] Anion Gap 9 6 - 16 mmol/L 10/14/2021 9:14 PM EST [facility] Total Calcium, Plasma 8.9 8.9 - 10.2 mg/dL 10/14/2021 9:14 PM EST [facility] eGFR >60 >60 mL/min/1.7 3m*2 10/14/2021 9:14 PM EST [facility] Comment:eGFR = estimated GFR ; eGFR units = mL/min/1.73 sq meters Chronic Kidney Disease is considered if eGFR <60 mL/min/1.73 sq meters Kidney failure is considered if eGFR is <15 mL/min/1.73 sq meters. eGFR assumes steady state plasma creatinine concentration; not applicable if renal function is rapidly changing or patient is on dialysis. eGFR, if AFR/AM >60 >60 mL/min/1.7 3m*2 10/14/2021 9:14 PM EST [facility] Comment:eGFR = estimated GFR ; eGFR units = mL/min/1.73 sq meters Chronic Kidney Disease is considered if eGFR <60 mL/min/1.73 sq meters Kidney failure is considered if eGFR is <15 mL/min/1.73 sq meters. eGFR assumes steady state plasma creatinine concentration; not applicable if renal function is rapidly changing or patient is on dialysis. Blood Venous blood specimen / Unknown Venipuncture / Unknown 10/14/2021 8:39 PM EST 10/14/2021 8:42 PM EST us Jamia Eller MD LAB BLOOD ORDERABLES Final Resul t [facility] [address] [place] [id number] * (ABNORMAL) CBC and differential (10/14/2021 8:39 PM EST) WBC Count 7.96 3.70 - 10.30 10*3/uL LAB HEMATOLOGY METHOD 10/14/2021 9:06 PM EST [facility] RBC Count 2.93(L) 3.90 - 5.20 10*6/uL LAB HEMATOLOGY METHOD 10/14/2021 9:06 PM EST [facility] HGB 9.3(L) 11.2 - 15.7 g/dL LAB HEMATOLOGY METHOD 10/14/2021 9:06 PM EST [facility] HCT 30.5(L) 34.0 - 45.0 % LAB HEMATOLOGY METHOD 10/14/2021 9:06 PM EST [facility] Platelet Count 300 155 - 369 10*3/uL LAB HEMATOLOGY METHOD 10/14/2021 9:06 PM EST [facility] MCV 104(H) 79 - 98 fL LAB HEMATOLOGY METHOD 10/14/2021 9:06 PM EST [facility] Comment:Results inconsistent with previous lab findings. MCH 31.7 26.0 - 32.0 pg LAB HEMATOLOGY METHOD 10/14/2021 9:06 PM EST [facility] MCHC 30.5(L) 30.7 - 35.5 g/dL LAB HEMATOLOGY METHOD 10/14/2021 9:06 PM EST [facility] RDW 17.6(H) 11.5 - 14.5 % LAB HEMATOLOGY METHOD 10/14/2021 9:06 PM EST [facility] MPV 9.3 8.8 - 12.5 fL LAB HEMATOLOGY METHOD 10/14/2021 9:06 PM EST [facility] nRBC 0.0 <=0.0 per 100 WBCs LAB HEMATOLOGY METHOD 10/14/2021 9:06 PM EST [facility] Differential Type Automated LAB HEMATOLOGY METHOD 10/14/2021 9:06 PM EST [facility] Neutrophils % 54.0 % LAB HEMATOLOGY METHOD 10/14/2021 9:06 PM EST [facility] Lymphocytes % 29.0 % LAB HEMATOLOGY METHOD 10/14/2021 9:06 PM EST [facility] Monocytes % 9.0 % LAB HEMATOLOGY METHOD 10/14/2021 9:06 PM EST [facility] Eosinophils % 7.0 % LAB HEMATOLOGY METHOD 10/14/2021 9:06 PM EST [facility] Basophils % 1.0 % LAB HEMATOLOGY METHOD 10/14/2021 9:06 PM EST [facility] Immature Granulocytes % 0.0 % LAB HEMATOLOGY METHOD 10/14/2021 9:06 PM EST [facility] Neutrophils Absolute 4.32 1.60 - 6.10 10*3/uL LAB HEMATOLOGY METHOD 10/14/2021 9:06 PM [facility] Lymphocytes Absolute 2.30 1.20 - 3.90 10*3/uL LAB HEMATOLOGY METHOD 10/14/2021 9:06 PM EST [facility] Monocytes Absolute 0.68 0.30 - 0.90 10*3/uL LAB HEMATOLOGY METHOD 10/14/2021 9:06 PM [facility] Eosinophils Absolute 0.59(H) 0.00 - 0.50 10*3/uL LAB HEMATOLOGY METHOD 10/14/2021 9:06 PM [facility] Basophils Absolute 0.04 0.00 - 0.10 10*3/uL LAB HEMATOLOGY METHOD 10/14/2021 9:06 PM [facility] Immature Granulocytes Absolute 0.03 0.00 - 0.06 10*3/uL LAB HEMATOLOGY METHOD 10/14/2021 9:06 PM [facility] Blood Venous blood specimen / Unknown Venipuncture / Unknown 10/14/2021 8:39 PM EST 10/14/2021 8:42 PM EST [facility] - 10/14/2021 9:06 PM EST Therapeutic decision making should be based on absolute values, rather than percentages. us Jamia Eller MD LAB BLOOD ORDERABLES Final Resul t Performing Organization Address City/[facility]/ZIP Co de Phone Number [facility] [address] [place] [address] * POCT glucose meter (10/14/2021 8:07 PM EST) POCT Glucose 82 74 - 99 mg/dL 10/14/2021 8:50 PM EST [facility] Comment:Accuracy of a glucos e result obtained from a capillary whole blood specimen relies upon adequate, non-compromised capillary blood flow. If the capillary glucose result is not consistent with the patient's clinical signs and symptoms, glucose testing should be repeated with either an arterial or venous sample on the glucometer or sent to the main labortory for testing. Comment 10/14/2021 8:50 PM EST [employer] [facility] Manager Special Events ID Martha Chao 10/14/2021 8:50 PM EST [facility] Device ID [id number] 10/14/2021 8:50 PM EST [facility] Specimen Type POC Capillary 10/14/2021 8:50 PM EST [facility] [facility] Blood Capillary blood specimen / Unknown 10/14/2021 8:07 PM EST 10/14/2021 8:50 PM EST us Ena Brennan MD LAB POINT OF CARE TE ST DOCKED DEVICE UNSOLICITED RESULTS Final Result Performing Organization Address City/[facility] Co de Phone Number [facility] [address] [place] [address] * POCT glucose meter (10/14/2021 4:54 PM EST) POCT Glucose 89 74 - 99 mg/dL 10/14/2021 5:00 PM EST [facility] Comment:Accuracy of a glucos e result obtained from a capillary whole blood specimen relies upon adequate, non-compromised capillary blood flow. If the capillary glucose result is not consistent with the patient's clinical signs and symptoms, glucose testing should be repeated with either an arterial or venous sample on the glucometer or sent to the main labortory for testing. Comment 10/14/2021 5:00 PM EST [facility] Manager Special Events ID Mallory Peacock 10/14/19 5:00 PM EST [facility] Device ID [id number] 10/14/2021 5:00 PM EST [facility] Specimen Type POC Capillary 10/14/2021 5:00 PM EST [facility] Blood Capillary blood specimen / Unknown 10/14/2021 4:54 PM EST 10/14/2021 5:00 PM EST us Ena Brennan MD LAB POINT OF CARE TE ST DOCKED DEVICE UNSOLICITED RESULTS Final Result Performing Organization Address City/[facility]/ZIP Co de Phone Number [facility] [address] [place] [address] * (ABNORMAL) POCT glucose meter (10/14/2021 12:04 PM EST) POCT Glucose 105(H) 74 - 99 mg/dL 10/14/2021 12:10 PM EST [facility] Comment:Accuracy of a glucos e result obtained from a capillary whole blood specimen relies upon adequate, non-compromised capillary blood flow. If the capillary glucose result is not consistent with the patient's clinical signs and symptoms, glucose testing should be repeated with either an arterial or venous sample on the glucometer or sent to the main labortory for testing. Comment 10/14/2021 12:10 PM EST [facility] Manager Special Events ID Mallory Peacock 10/14/19 12:10 PM EST [facility] Device ID [id number] 10/14/2021 12:10 PM EST [facility] Specimen Type POC Capillary 10/14/2021 12:10 PM EST [facility] Blood Capillary blood specimen / Unknown 10/14/2021 12:04 PM EST 10/14/2021 12:10 PM EST us Jamia Eller MD LAB POINT OF CARE TE ST DOCKED DEVICE UNSOLICITED RESULTS Final Result Performing Organization Address City/[facility]/ZIP Co de Phone Number [facility] [address] [place] [address] * POCT glucose meter (10/14/2021 10:38 AM EST) POCT Glucose 97 74 - 99 mg/dL 10/14/2021 10:45 AM EST [facility] Comment:Accuracy of a glucos e result obtained from a capillary whole blood specimen relies upon adequate, non-compromised capillary blood flow. If the capillary glucose result is not consistent with the patient's clinical signs and symptoms, glucose testing should be repeated with either an arterial or venous sample on the glucometer or sent to the main labortory for testing. Comment 10/14/2021 10:45 AM EST [facility] Manager Special Events ID Ronel Lovett 10/14/2021 10:45 AM EST [facility] Device ID [id number] 10/14/2021 10:45 AM EST [facility] Specimen Type POC Capillary 10/14/2021 10:45 AM EST [facility] Blood Capillary blood specimen / Unknown 10/14/2021 10:38 AM EST 10/14/2021 10:45 AM EST Jamia Eller MD LAB POINT OF CARE TE ST DOCKED DEVICE UNSOLICITED RESULTS Final Result Performing Organization Address City/State/[facility] Co de Phone Number [facility] [address] [place] [address] * (ABNORMAL) POCT glucose meter (10/14/2021 8:53 AM EST) [facility] POCT Glucose 64(L) 74 - 99 mg/dL 10/14/2021 8:55 AM EST [facility] Comment:Accuracy of a glucos e result obtained from a capillary whole blood specimen relies upon adequate, non-compromised capillary blood flow. If the capillary glucose result is not consistent with the patient's clinical signs and symptoms, glucose testing should be repeated with either an arterial or venous sample on the glucometer or sent to the main labortory for testing. Comment 10/14/2021 8:55 AM EST [facility] Manager Special Events ID Mallory Peacock 10/14/19 8:55 AM EST [facility] Device ID [id number] 10/14/2021 8:55 AM EST [facility] Specimen Type POC Capillary 10/14/2021 8:55 AM EST [facility] Blood Capillary blood specimen / Unknown 10/14/2021 8:53 AM EST 10/14/2021 8:55 AM EST Jamia Eller MD LAB POINT OF CARE TE ST DOCKED DEVICE UNSOLICITED RESULTS Final Result Performing Organization Address City/[facility] Co de Phone Number [facility] [address] [place] [address] * (ABNORMAL) POCT glucose meter (10/14/2021 8:04 AM EST) POCT Glucose 57(L) 74 - 99 mg/dL 10/14/2021 8:10 AM EST [facility] Comment:Accuracy of a glucos e result obtained from a capillary whole blood specimen relies upon adequate, non-compromised capillary blood flow. If the capillary glucose result is not consistent with the patient's clinical signs and symptoms, glucose testing should be repeated with either an arterial or venous sample on the glucometer or sent to the main labortory for testing. Comment 10/14/2021 8:10 AM EST [facility] Manager Special Events ID Mallory Peacock 10/14/19 8:10 AM EST [facility] Device ID [id number] 10/14/2021 8:10 AM EST [facility] Specimen Type POC Capillary 10/14/2021 8:10 AM EST [facility] Blood Capillary blood specimen / Unknown 10/14/2021 8:04 AM EST 10/14/2021 8:10 AM EST Jamia Eller MD LAB POINT OF CARE TE ST DOCKED DEVICE UNSOLICITED RESULTS Final Result Performing Organization Address City/[facility] Co de Phone Number [facility] [address] [place] [address] * (ABNORMAL) POCT glucose meter (10/13/2021 7:56 PM EST) POCT Glucose 111(H) 74 - 99 mg/dL 10/13/2021 8:00 PM EST [facility] Comment:Accuracy of a glucos e result obtained from a capillary whole blood specimen relies upon adequate, non-compromised capillary blood flow. If the capillary glucose result is not consistent with the patient's clinical signs and symptoms, glucose testing should be repeated with either an arterial or venous sample on the glucometer or sent to the main labortory for testing. Comment 10/13/2021 8:00 PM EST [facility] Manager Special Events ID Maryam Morales 10/13/2021 8:00 PM EST [facility] Device ID [id number] 10/13/2021 8:00 PM EST [facility] Specimen Type POC Capillary 10/13/2021 8:00 PM EST [facility] Blood Capillary blood specimen / Unknown 10/13/2021 7:56 PM EST 10/13/2021 8:00 PM EST us Jamia Eller MD LAB POINT OF CARE TE ST DOCKED DEVICE UNSOLICITED RESULTS Final Result Performing Organization Address City/[facility] Co de Phone Number [facility] [address] [place] [address] * (ABNORMAL) POCT glucose meter (10/13/2021 4:36 PM EST) POCT Glucose 122(H) 74 - 99 mg/dL 10/13/2021 4:40 PM EST [facility] Comment:Accuracy of a glucos e result obtained from a capillary whole blood specimen relies upon adequate, non-compromised capillary blood flow. If the capillary glucose result is not consistent with the patient's clinical signs and symptoms, glucose testing should be repeated with either an arterial or venous sample on the glucometer or sent to the main labortory for testing. Comment 10/13/2021 4:40 PM EST [facility] Manager Special Events ID Sarah Westfall 10/13/2021 4:40 PM EST [facility] Device ID [id number] 10/13/2021 4:40 PM EST [facility] Specimen Type POC Capillary 10/13/2021 4:40 PM EST [facility] Blood Capillary blood specimen / Unknown 10/13/2021 4:36 PM EST 10/13/2021 4:40 PM EST us Jamia Eller MD LAB POINT OF CARE TE ST DOCKED DEVICE UNSOLICITED RESULTS Final Result Performing Organization Address City/[facility]/ZIP Co de Phone Number [facility] [address] [place] [address] * POCT glucose meter (10/13/2021 12:37 PM EST) POCT Glucose 83 74 - 99 mg/dL 10/13/2021 12:45 PM EST [facility] Comment:Accuracy of a glucos e result obtained from a capillary whole blood specimen relies upon adequate, non-compromised capillary blood flow. If the capillary glucose result is not consistent with the patient's clinical signs and symptoms, glucose testing should be repeated with either an arterial or venous sample on the glucometer or sent to the main labortory for testing. Comment 10/13/2021 12:45 PM EST [facility] Manager Special Events ID Sarah Westfall 10/13/2021 12:45 PM EST [facility] Device ID [id number] 10/13/2021 12:45 PM EST [facility] Specimen Type POC Capillary 10/13/2021 12:45 PM EST [facility] Blood Capillary blood specimen / Unknown 10/13/2021 12:37 PM EST 10/13/2021 12:45 PM EST Jamia Eller MD LAB POINT OF CARE TE ST DOCKED DEVICE UNSOLICITED RESULTS Final Result [facility] [address] [place] [address] * POCT glucose meter (10/13/2021 8:50 AM EST) [facility] Signature POCT Glucose 90 74 - 99 mg/dL 10/13/2021 9:15 AM EST [facility] Comment:Accuracy of a glucos e result obtained from a capillary whole blood specimen relies upon adequate, non-compromised capillary blood flow. If the capillary glucose result is not consistent with the patient's clinical signs and symptoms, glucose testing should be repeated with either an arterial or venous sample on the glucometer or sent to the main labortory for testing. Comment 10/13/2021 9:15 AM EST [facility] Manager Special Events ID Ronel Lovett 10/13/2021 9:15 AM EST [facility] Device ID [id number] 10/13/2021 9:15 AM EST [facility] Specimen Type POC Capillary 10/13/2021 9:15 AM EST [facility] Blood Capillary blood specimen / Unknown 10/13/2021 8:50 AM EST 10/13/2021 9:15 AM EST Jamia Eller MD LAB POINT OF CARE TE ST DOCKED DEVICE UNSOLICITED RESULTS Final Result Performing Organization Address City/[facility] Co de Phone Number [facility] [address] [place] [address] * (ABNORMAL) POCT glucose meter (10/13/2021 8:00 AM EST) POCT Glucose 65(L) 74 - 99 mg/dL 10/13/2021 8:05 AM EST [facility] Comment:Accuracy of a glucos e result obtained from a capillary whole blood specimen relies upon adequate, non-compromised capillary blood flow. If the capillary glucose result is not consistent with the patient's clinical signs and symptoms, glucose testing should be repeated with either an arterial or venous sample on the glucometer or sent to the main labortory for testing. Comment 10/13/2021 8:05 AM EST [facility] Manager Special Events ID Sarah Westfall 10/13/2021 8:05 AM EST [facility] Device ID [id number] 10/13/2021 8:05 AM EST [facility] Specimen Type POC Capillary 10/13/2021 8:05 AM EST [facility] Blood Capillary blood specimen / Unknown 10/13/2021 8:00 AM EST 10/13/2021 8:05 AM EST Jamia Eller MD LAB POINT OF CARE TE ST DOCKED DEVICE UNSOLICITED RESULTS Final Result Performing Organization Address City/[facility] Co de Phone Number [facility] [address] [place] [address] * (ABNORMAL) POCT glucose meter (10/12/2021 7:34 PM EST) POCT Glucose 100(H) 74 - 99 mg/dL 10/12/2021 7:35 PM EST [facility] Comment:Accuracy of a glucos e result obtained from a capillary whole blood specimen relies upon adequate, non-compromised capillary blood flow. If the capillary glucose result is not consistent with the patient's clinical signs and symptoms, glucose testing should be repeated with either an arterial or venous sample on the glucometer or sent to the main labortory for testing. Comment 10/12/2021 7:35 PM EST [facility] Manager Special Events ID Maryam Morales 10/12/2021 7:35 PM EST [facility] Device ID [id number] 10/12/2021 7:35 PM EST [facility] Specimen Type POC Capillary 10/12/2021 7:35 PM EST [facility] Blood Capillary blood specimen / Unknown 10/12/2021 7:34 PM EST 10/12/2021 7:35 PM EST us Jamia Eller MD LAB POINT OF CARE TE ST DOCKED DEVICE UNSOLICITED RESULTS Final Result Performing Organization Address City/[facility] Co de Phone Number [facility] [address] [place] [address] * POCT glucose meter (10/12/2021 4:34 PM EST) [facility] POCT Glucose 92 74 - 99 mg/dL 10/12/2021 4:50 PM EST [facility] Comment:Accuracy of a glucos e result obtained from a capillary whole blood specimen relies upon adequate, non-compromised capillary blood flow. If the capillary glucose result is not consistent with the patient's clinical signs and symptoms, glucose testing should be repeated with either an arterial or venous sample on the glucometer or sent to the main labortory for testing. Comment 10/12/2021 4:50 PM EST [facility] Manager Special Events ID Beatriz Israel 10/12/2021 4:50 PM EST [facility] Device ID [id number] 10/12/2021 4:50 PM EST [facility] Specimen Type POC Capillary 10/12/2021 4:50 PM EST [facility] Blood Capillary blood specimen / Unknown 10/12/2021 4:34 PM EST 10/12/2021 4:50 PM EST us Jamia Eller MD LAB POINT OF CARE TE ST DOCKED DEVICE UNSOLICITED RESULTS Final Result [facility] [address] [place] [address] * (ABNORMAL) POCT glucose meter (10/12/2021 12:09 PM EST) [facility] POCT Glucose 105(H) 74 - 99 mg/dL 10/12/2021 12:10 PM EST [facility] Comment:Accuracy of a glucos e result obtained from a capillary whole blood specimen relies upon adequate, non-compromised capillary blood flow. If the capillary glucose result is not consistent with the patient's clinical signs and symptoms, glucose testing should be repeated with either an arterial or venous sample on the glucometer or sent to the main labortory for testing. Comment 10/12/2021 12:10 PM EST [facility] Manager Special Events ID Kassie Phelps 022 12:10 PM EST [facility] Device ID [id number] 10/12/2021 12:10 PM EST [facility] Specimen Type POC Capillary 10/12/2021 12:10 PM EST [facility] Blood Capillary blood specimen / Unknown 10/12/2021 12:09 PM EST 10/12/2021 12:10 PM EST Jamia Eller MD LAB POINT OF CARE TE ST DOCKED DEVICE UNSOLICITED RESULTS Final Result [facility] [address] [place] [address] * POCT glucose meter (10/12/2021 8:57 AM EST) [facility] POCT Glucose 84 74 - 99 mg/dL 10/12/2021 9:00 AM EST [facility] Comment:Accuracy of a glucos e result obtained from a capillary whole blood specimen relies upon adequate, non-compromised capillary blood flow. If the capillary glucose result is not consistent with the patient's clinical signs and symptoms, glucose testing should be repeated with either an arterial or venous sample on the glucometer or sent to the main labortory for testing. Comment 10/12/2021 9:00 AM EST [facility] Manager Special Events ID Beatriz Israel 10/12/2021 9:00 AM EST [facility] Device ID [id number] 10/12/2021 9:00 AM EST [facility] Specimen Type POC Capillary 10/12/2021 9:00 AM EST [facility] Blood Capillary blood specimen / Unknown 10/12/2021 8:57 AM EST 10/12/2021 9:00 AM EST Jamia Eller MD LAB POINT OF CARE TE ST DOCKED DEVICE UNSOLICITED RESULTS Final Result Performing Organization Address City/[facility] Co de Phone Number [facility] [address] [place] [address] * (ABNORMAL) POCT glucose meter (10/12/2021 8:17 AM EST) POCT Glucose 67(L) 74 - 99 mg/dL 10/12/2021 8:20 AM EST [facility] Comment:Accuracy of a glucos e result obtained from a capillary whole blood specimen relies upon adequate, non-compromised capillary blood flow. If the capillary glucose result is not consistent with the patient's clinical signs and symptoms, glucose testing should be repeated with either an arterial or venous sample on the glucometer or sent to the main labortory for testing. Comment 10/12/2021 8:20 AM EST [facility] Manager Special Events ID Kassie Phelps 022 8:20 AM EST [facility] Device ID [id number] 10/12/2021 8:20 AM EST [facility] Specimen Type POC Capillary 10/12/2021 8:20 AM EST [facility] Blood Capillary blood specimen / Unknown 10/12/2021 8:17 AM EST 10/12/2021 8:20 AM EST Jamia Eller MD LAB POINT OF CARE TE ST DOCKED DEVICE UNSOLICITED RESULTS Final Result Performing Organization Address City/[facility] Co de Phone Number [facility] [address] [place] [address] * POCT glucose meter (10/11/2021 8:58 PM EST) POCT Glucose 91 74 - 99 mg/dL 10/11/2021 9:05 PM EST [facility] Comment:Accuracy of a glucos e result obtained from a capillary whole blood specimen relies upon adequate, non-compromised capillary blood flow. If the capillary glucose result is not consistent with the patient's clinical signs and symptoms, glucose testing should be repeated with either an arterial or venous sample on the glucometer or sent to the main labortory for testing. Comment 10/11/2021 9:05 PM EST [facility] Manager Special Events ID Dipika Cohen 9:05 PM EST [facility] Device ID [id number] 10/11/2021 9:05 PM EST [facility] Specimen Type POC Capillary 10/11/2021 9:05 PM EST [facility] Blood Capillary blood specimen / Unknown 10/11/2021 8:58 PM EST 10/11/2021 9:05 PM EST us Jamia Eller MD LAB POINT OF CARE TE ST DOCKED DEVICE UNSOLICITED RESULTS Final Result Performing Organization Address City/[facility] Co de Phone Number [facility] [address] [place] [address] * (ABNORMAL) POCT glucose meter (10/11/2021 4:21 PM EST) [facility] POCT Glucose 106(H) 74 - 99 mg/dL 10/11/2021 4:30 PM EST [facility] Comment:Accuracy of a glucos e result obtained from a capillary whole blood specimen relies upon adequate, non-compromised capillary blood flow. If the capillary glucose result is not consistent with the patient's clinical signs and symptoms, glucose testing should be repeated with either an arterial or venous sample on the glucometer or sent to the main labortory for testing. Comment 10/11/2021 4:30 PM EST [facility] Manager Special Events ID Kosta Perry 2 4:30 PM EST [facility] Device ID [id number] 10/11/2021 4:30 PM EST [facility] Specimen Type POC Capillary 10/11/2021 4:30 PM EST [facility] Blood Capillary blood specimen / Unknown 10/11/2021 4:21 PM EST 10/11/2021 4:30 PM EST us Jamia Eller MD LAB POINT OF CARE TE ST DOCKED DEVICE UNSOLICITED RESULTS Final Result [facility] [address] [place] [address] * POCT glucose meter (10/11/2021 12:46 PM EST) [facility] POCT Glucose 96 74 - 99 mg/dL 10/11/2021 12:55 PM EST [facility] Comment:Accuracy of a glucos e result obtained from a capillary whole blood specimen relies upon adequate, non-compromised capillary blood flow. If the capillary glucose result is not consistent with the patient's clinical signs and symptoms, glucose testing should be repeated with either an arterial or venous sample on the glucometer or sent to the main labortory for testing. Comment 10/11/2021 12:55 PM EST [facility] Manager Special Events ID Kosta Perry 2 12:55 PM EST [facility] Device ID [id number] 10/11/2021 12:55 PM EST [facility] Specimen Type POC Capillary 10/11/2021 12:55 PM EST [facility] Blood Capillary blood specimen / Unknown 10/11/2021 12:46 PM EST 10/11/2021 12:55 PM EST Jamia Eller MD LAB POINT OF CARE TE ST DOCKED DEVICE UNSOLICITED RESULTS Final Result [facility] [address] [place] [address] * POCT glucose meter (10/11/2021 9:13 AM EST) [facility] POCT Glucose 86 74 - 99 mg/dL 10/11/2021 9:45 AM EST [facility] Comment:Accuracy of a glucos e result obtained from a capillary whole blood specimen relies upon adequate, non-compromised capillary blood flow. If the capillary glucose result is not consistent with the patient's clinical signs and symptoms, glucose testing should be repeated with either an arterial or venous sample on the glucometer or sent to the main labortory for testing. Comment 10/11/2021 9:45 AM EST [facility] Manager Special Events ID Kosta Perry 2 9:45 AM EST [facility] Device ID [id number] 10/11/2021 9:45 AM EST [facility] Specimen Type POC Capillary 10/11/2021 9:45 AM EST [facility] Blood Capillary blood specimen / Unknown 10/11/2021 9:13 AM EST 10/11/2021 9:45 AM EST us Jamia Eller MD LAB POINT OF CARE TE ST DOCKED DEVICE UNSOLICITED RESULTS Final Result Performing Organization Address [facility] de Phone Number [facility] [address] [place] [address] * (ABNORMAL) POCT glucose meter (10/11/2021 8:29 AM EST) POCT Glucose 69(L) 74 - 99 mg/dL 10/11/2021 8:40 AM EST [facility] Comment:Accuracy of a glucos e result obtained from a capillary whole blood specimen relies upon adequate, non-compromised capillary blood flow. If the capillary glucose result is not consistent with the patient's clinical signs and symptoms, glucose testing should be repeated with either an arterial or venous sample on the glucometer or sent to the main labortory for testing. Comment 10/11/2021 8:40 AM EST [facility] Manager Special Events ID Kosta Perry 8:40 AM EST [facility] Device ID [id number] 10/11/2021 8:40 AM EST [facility] Specimen Type POC Capillary 10/11/2021 8:40 AM EST [facility] Blood Capillary blood specimen / Unknown 10/11/2021 8:29 AM EST 10/11/2021 8:40 AM EST us Pam Uriostegui MD LAB POINT OF CARE TEST DOCKED DEVICE UNSOLICITED RESULTS Final Result Performing Organization Address [facility] de Phone Number [facility] [address] [place] [address] * Lavender Top (10/11/2021 6:13 AM EST) Extra Hold for add-ons. 10/11/2021 9:02 AM EST [facility] Comment:Auto resulted. Blood Venous blood specimen / Unknown 10/11/2021 6:13 AM EST 10/11/2021 6:24 AM EST us Pam Uriostegui MD LAB BLOOD ORDERABLES Mallory l Result Performing Organization Address City/[facility] Co de Phone Number [facility] [address] [place] [address] * (ABNORMAL) Phosphorus, Plasma (10/11/2021 6:13 AM EST) Phosphorus, Plasma 5.0(H) 2.5 - 4.5 mg/dL 10/11/2021 6:58 AM EST [facility] Blood Venous blood specimen / Unknown Venipuncture / Unknown 10/11/2021 6:13 AM EST 10/11/2021 6:23 AM EST us Pam Uriostegui MD LAB BLOOD ORDERABLES Mallory l Result Performing Organization Address [facility] Co de Phone Number [facility] [address] [place] [address] * (ABNORMAL) Magnesium, Plasma (10/11/2021 6:13 AM EST) Magnesium, Plasma 1.4(L) 1.9 - 2.4 mg/dL 10/11/2021 6:58 AM EST [facility] Blood Venous blood specimen / Unknown Venipuncture / Unknown 10/11/2021 6:13 AM EST 10/11/2021 6:23 AM EST us Pam Uriostegui MD LAB BLOOD ORDERABLES Mallory l Result Performing Organization Address [facility] de Phone Number [facility] [address] [place] [address] * (ABNORMAL) Basic Metabolic Panel, Plasma (10/11/2021 6:13 AM EST) Glucose, Plasma 77 74 - 99 mg/dL 10/11/2021 6:58 AM EST [facility] BUN, Plasma 8 7 - 21 mg/dL 10/11/2021 6:58 AM EST [facility] Creatinine, Plasma 0.61 0.60 - 1.10 mg/dL 10/11/2021 6:58 AM EST [facility] BUN/Creatinine Ratio 13 10/11/2021 6:58 AM EST [facility] Sodium, Plasma 138 136 - 145 mmol/L 10/11/2021 6:58 AM EST [facility] Potassium, Plasma 3.9 3.7 - 4.8 mmol/L 10/11/2021 6:58 AM EST [facility] Chloride, Plasma 106 97 - 107 mmol/L 10/11/2021 6:58 AM EST [facility] CO2, Plasma 23 22 - 29 mmol/L 10/11/2021 6:58 AM EST [facility] Anion Gap 9 6 - 16 mmol/L 10/11/2021 6:58 AM EST [facility] Total Calcium, Plasma 8.6(L) 8.9 - 10.2 mg/dL 10/11/2021 6:58 AM EST [facility] eGFR >60 >60 mL/min/1.7 3m*2 10/11/2021 6:58 AM EST [facility] Comment:eGFR = estimated GFR ; eGFR units = mL/min/1.73 sq meters Chronic Kidney Disease is considered if eGFR <60 mL/min/1.73 sq meters Kidney failure is considered if eGFR is <15 mL/min/1.73 sq meters. eGFR assumes steady state plasma creatinine concentration; not applicable if renal function is rapidly changing or patient is on dialysis. eGFR, if AFR/AM >60 >60 mL/min/1.7 3m*2 10/11/2021 6:58 AM EST [facility] Comment:eGFR = estimated GFR [...] blood specimen / Unknown Venipuncture / Unknown 10/11/2021 6:13 AM EST 10/11/2021 6:23 AM EST us Pam Uriostegui MD LAB BLOOD ORDERABLES Mallory mata Result [facility] [address] [place] [address] * (ABNORMAL) POCT glucose meter (10/10/2021 7:51 PM EST) POCT Glucose 102(H) 74 - 99 mg/dL 10/10/2021 7:55 PM EST [facility] Comment:Accuracy of a glucos e result obtained from a capillary whole blood specimen relies upon adequate, non-compromised capillary blood flow. If the capillary glucose result is not consistent with the patient's clinical signs and symptoms, glucose testing should be repeated with either an arterial or venous sample on the glucometer or sent to the main labortory for testing. Comment 10/10/2021 7:55 PM EST [facility] Manager Special Events ID Warren Cunningham 7:55 PM EST [facility] Device ID [id number] 10/10/2021 7:55 PM EST [facility] Specimen Type POC Capillary 10/10/2021 7:55 PM EST [facility] Blood Capillary blood specimen / Unknown 10/10/2021 7:51 PM EST 10/10/2021 7:55 PM EST Pam Uriostegui MD LAB POINT OF CARE TEST DOCKED DEVICE UNSOLICITED RESULTS Final Result Performing Organization Address City/State/[facility] Co de Phone Number [facility] [address] [place] [address] * POCT glucose meter (10/10/2021 4:12 PM EST) [facility] POCT Glucose 84 74 - 99 mg/dL 10/10/2021 4:15 PM EST [facility] Comment:Accuracy of a glucos e result obtained from a capillary whole blood specimen relies upon adequate, non-compromised capillary blood flow. If the capillary glucose result is not consistent with the patient's clinical signs and symptoms, glucose testing should be repeated with either an arterial or venous sample on the glucometer or sent to the main labortory for testing. Comment 10/10/2021 4:15 PM EST [facility] Manager Special Events ID Margareth Mac 10/10/2021 4:15 PM EST [facility] Device ID [id number] 10/10/2021 4:15 PM EST [facility] Specimen Type POC Capillary 10/10/2021 4:15 PM EST [facility] Blood Capillary blood specimen / Unknown 10/10/2021 4:12 PM EST 10/10/2021 4:15 PM EST Pam Uriostegui MD LAB POINT OF CARE TEST DOCKED DEVICE UNSOLICITED RESULTS Final Result Performing Organization Address City/[facility] Co de Phone Number [facility] [address] [place] [address] * (ABNORMAL) POCT glucose meter (10/10/2021 12:06 PM EST) POCT Glucose 107(H) 74 - 99 mg/dL 10/10/2021 12:10 PM EST [facility] Comment:Accuracy of a glucos e result obtained from a capillary whole blood specimen relies upon adequate, non-compromised capillary blood flow. If the capillary glucose result is not consistent with the patient's clinical signs and symptoms, glucose testing should be repeated with either an arterial or venous sample on the glucometer or sent to the main labortory for testing. Comment 10/10/2021 12:10 PM EST [facility] Manager Special Events ID BubbaMargareth 10/10/2021 12:10 PM EST [facility] Device ID [id number] 10/10/2021 12:10 PM EST [facility] Specimen Type POC Capillary 10/10/2021 12:10 PM EST [facility] Blood Capillary blood specimen / Unknown 10/10/2021 12:06 PM EST 10/10/2021 12:10 PM EST Pam Uriostegui MD LAB POINT OF CARE TEST DOCKED DEVICE UNSOLICITED RESULTS Final Result Performing Organization Address City/[facility] de Phone Number [facility] [address] [place] [address] * (ABNORMAL) POCT glucose meter (10/10/2021 7:47 AM EST) POCT Glucose 72(L) 74 - 99 mg/dL 10/10/2021 7:51 AM EST [facility] Comment:Accuracy of a glucos e result obtained from a capillary whole blood specimen relies upon adequate, non-compromised capillary blood flow. If the capillary glucose result is not consistent with the patient's clinical signs and symptoms, glucose testing should be repeated with either an arterial or venous sample on the glucometer or sent to the main labortory for testing. Comment 10/10/2021 7:51 AM EST [facility] Manager Special Events ID Margareth aMc 10/10/2021 7:51 AM EST [facility] Device ID [id number] 10/10/2021 7:51 AM EST [facility] Specimen Type POC Capillary 10/10/2021 7:51 AM EST [facility] Blood Capillary blood specimen / Unknown 10/10/2021 7:47 AM EST 10/10/2021 7:50 AM EST us Pam Uriostegui MD LAB POINT OF CARE TEST DOCKED DEVICE UNSOLICITED RESULTS Final Result Performing Organization Address City/[facility]/ZIP Co de Phone Number [facility] [address] [place] [address] * (ABNORMAL) Magnesium, Plasma (10/10/2021 6:27 AM EST) Magnesium, Plasma 1.4(L) 1.9 - 2.4 mg/dL 10/10/2021 7:37 AM EST [facility] Blood Venous blood specimen / Unknown Venipuncture / Unknown 10/10/2021 6:27 AM EST 10/10/2021 6:31 AM EST us Pam Uriostegui MD LAB BLOOD ORDERABLES Mallory l Result Performing Organization Address City/[facility]/ZIP Co de Phone Number [facility] [address] [place] [address] * (ABNORMAL) Basic Metabolic Panel, Plasma (10/10/2021 6:27 AM EST) Glucose, Plasma 77 74 - 99 mg/dL 10/10/2021 7:37 AM EST [facility] BUN, Plasma 4(L) 7 - 21 mg/dL 10/10/2021 7:37 AM EST [facility] Creatinine, Plasma 0.62 0.60 - 1.10 mg/dL 10/10/2021 7:37 AM EST [facility] BUN/Creatinine Ratio 6 10/10/2021 7:37 AM EST [facility] Sodium, Plasma 136 136 - 145 mmol/L 10/10/2021 7:37 AM EST [facility] Potassium, Plasma 4.6 3.7 - 4.8 mmol/L 10/10/2021 7:37 AM EST [facility] Comment:Hemolyzed, result ma y be falsely increased. Chloride, Plasma 107 97 - 107 mmol/L 10/10/2021 7:37 AM EST [facility] CO2, Plasma 17(L) 22 - 29 mmol/L 10/10/2021 7:37 AM EST [facility] Anion Gap 12 6 - 16 mmol/L 10/10/2021 7:37 AM EST [facility] Total Calcium, Plasma 8.2(L) 8.9 - 10.2 mg/dL 10/10/2021 7:37 AM EST [facility] eGFR >60 >60 mL/min/1.7 3m*2 10/10/2021 7:37 AM EST [facility] Comment:eGFR = estimated GFR ; eGFR units = mL/min/1.73 sq meters Chronic Kidney Disease is considered if eGFR <60 mL/min/1.73 sq meters Kidney failure is considered if eGFR is <15 mL/min/1.73 sq meters. eGFR assumes steady state plasma creatinine concentration; not applicable if renal function is rapidly changing or patient is on dialysis. eGFR, if AFR/AM >60 >60 mL/min/1.7 3m*2 10/10/2021 7:37 AM EST [facility] Comment:eGFR = estimated GFR [...] blood specimen / Unknown Venipuncture / Unknown 10/10/2021 6:27 AM EST 10/10/2021 6:31 AM EST us Pam Uriostegui MD LAB BLOOD ORDERABLES Mallory mata Result [facility] [address] [place] [address] * (ABNORMAL) CBC and Differential (10/10/2021 6:27 AM EST) WBC Count 6.92 3.70 - 10.30 10*3/uL LAB HEMATOLOGY METHOD 10/10/2021 6:46 AM EST [facility] RBC Count 2.65(L) 3.90 - 5.20 10*6/uL LAB HEMATOLOGY METHOD 10/10/2021 6:46 AM EST [facility] HGB 8.4(L) 11.2 - 15.7 g/dL LAB HEMATOLOGY METHOD 10/10/2021 6:46 AM EST [facility] HCT 28.8(L) 34.0 - 45.0 % LAB HEMATOLOGY METHOD 10/10/2021 6:46 AM EST [facility] Platelet Count 343 155 - 369 10*3/uL LAB HEMATOLOGY METHOD 10/10/2021 6:46 AM EST [facility] MCV 109(H) 79 - 98 fL LAB HEMATOLOGY METHOD 10/10/2021 6:46 AM EST [facility] MCH 31.7 26.0 - 32.0 pg LAB HEMATOLOGY METHOD 10/10/2021 6:46 AM EST [facility] MCHC 29.2(L) 30.7 - 35.5 g/dL LAB HEMATOLOGY METHOD 10/10/2021 6:46 AM EST [facility] RDW 19.2(H) 11.5 - 14.5 % LAB HEMATOLOGY METHOD 10/10/2021 6:46 AM EST [facility] MPV 9.3 8.8 - 12.5 fL LAB HEMATOLOGY METHOD 10/10/2021 6:46 AM EST [facility] nRBC 0.0 <=0.0 per 100 WBCs LAB HEMATOLOGY METHOD 10/10/2021 6:46 AM EST [facility] Differential Type Automated LAB HEMATOLOGY METHOD 10/10/2021 6:46 AM EST [facility] Neutrophils % 47.0 % LAB HEMATOLOGY METHOD 10/10/2021 6:46 AM EST [facility] Lymphocytes % 30.0 % LAB HEMATOLOGY METHOD 10/10/2021 6:46 AM EST [facility] Monocytes % 14.0 % LAB HEMATOLOGY METHOD 10/10/2021 6:46 AM EST [facility] Eosinophils % 8.0 % LAB HEMATOLOGY METHOD 10/10/2021 6:46 AM EST [facility] Basophils % 1.0 % LAB HEMATOLOGY METHOD 10/10/2021 6:46 AM EST [facility] Immature Granulocytes % 0.0 % LAB HEMATOLOGY METHOD 10/10/2021 6:46 AM EST [facility] Neutrophils Absolute 3.27 1.60 - 6.10 10*3/uL LAB HEMATOLOGY METHOD 10/10/2021 6:46 AM EST [facility] Lymphocytes Absolute 2.06 1.20 - 3.90 10*3/uL LAB HEMATOLOGY METHOD 10/10/2021 6:46 AM EST [facility] Monocytes Absolute 0.94(H) 0.30 - 0.90 10*3/uL LAB HEMATOLOGY METHOD 10/10/2021 6:46 AM EST [facility] Eosinophils Absolute 0.54(H) 0.00 - 0.50 10*3/uL LAB HEMATOLOGY METHOD 10/10/2021 6:46 AM EST [facility] Basophils Absolute 0.08 0.00 - 0.10 10*3/uL LAB HEMATOLOGY METHOD 10/10/2021 6:46 AM EST [facility] Immature Granulocytes Absolute 0.03 0.00 - 0.06 10*3/uL LAB HEMATOLOGY METHOD 10/10/2021 6:46 AM EST [facility] Blood Venous blood specimen / Unknown Venipuncture / Unknown 10/10/2021 6:27 AM EST 10/10/2021 6:39 AM EST Narrative [facility] - 10/10/2021 6:46 AM EST Therapeutic decision making should be based on absolute values, rather than percentages. Pam Uriostegui MD LAB BLOOD ORDERABLES Mallory l Result [facility] [address] [place] [address] * (ABNORMAL) C-Reactive Protein, Plasma (10/10/2021 6:27 AM EST) CRP, Plasma 42.2(H) <=8.0 mg/L 10/10/2021 7:37 AM EST [facility] Blood Venous blood specimen / Unknown Venipuncture / Unknown 10/10/2021 6:27 AM EST 10/10/2021 6:31 AM EST Narrative [facility] - 10/10/2021 7:37 AM EST This CRP test is appropriate for assessment of infection, systemic inflammation and/or tissue injury. To assess cardiovascular disease risk order high sensitivity CRP (CRPH). us Pam Uriostegui MD LAB BLOOD ORDERABLES Mallory l Result Performing Organization Address City/[facility]/ZIP Co de Phone Number [facility] [address] [place] [address] * (ABNORMAL) POCT glucose meter (10/09/2021 8:10 PM EST) Pathologist [facility] POCT Glucose 130(H) 74 - 99 mg/dL 10/09/2021 8:15 PM EST [facility] Comment:Accuracy of a glucos e result obtained from a capillary whole blood specimen relies upon adequate, non-compromised capillary blood flow. If the capillary glucose result is not consistent with the patient's clinical signs and symptoms, glucose testing should be repeated with either an arterial or venous sample on the glucometer or sent to the main labortory for testing. Comment 10/09/2021 8:15 PM EST [facility] Manager Special Events ID Vera Peck 10/09/2021 8:15 PM EST [facility] Device ID [id number] 10/09/2021 8:15 PM EST [facility] Specimen Type POC Capillary 10/09/2021 8:15 PM EST [facility] Blood Capillary blood specimen / Unknown 10/09/2021 8:10 PM EST 10/09/2021 8:15 PM EST Pam Uriostegui MD LAB POINT OF CARE TEST DOCKED DEVICE UNSOLICITED RESULTS Final Result Performing Organization Address City/[facility] Co de Phone Number [facility] [address] [place] [address] * (ABNORMAL) POCT glucose meter (10/09/2021 4:12 PM EST) Pathologist [facility] POCT Glucose 101(H) 74 - 99 mg/dL 10/09/2021 4:15 PM EST [facility] Comment:Accuracy of a glucos e result obtained from a capillary whole blood specimen relies upon adequate, non-compromised capillary blood flow. If the capillary glucose result is not consistent with the patient's clinical signs and symptoms, glucose testing should be repeated with either an arterial or venous sample on the glucometer or sent to the main labortory for testing. Comment 10/09/2021 4:15 PM EST [facility] Manager Special Events ID FreiberSydni meyer N 10/09/2021 4:15 PM EST [facility] Device ID [id number] 10/09/2021 4:15 PM EST [facility] Specimen Type POC Capillary 10/09/2021 4:15 PM EST [facility] Blood Capillary blood specimen / Unknown 10/09/2021 4:12 PM EST 10/09/2021 4:15 PM EST Pam Uriostegui MD LAB POINT OF CARE TEST DOCKED DEVICE UNSOLICITED RESULTS Final Result Performing Organization Address City/[facility] Co de Phone Number [facility] [address] [place] [address] * (ABNORMAL) POCT glucose meter (10/09/2021 11:08 AM EST) POCT Glucose 139(H) 74 - 99 mg/dL 10/10/2021 9:30 AM EST [facility] Comment:Accuracy of a glucos e result obtained from a capillary whole blood specimen relies upon adequate, non-compromised capillary blood flow. If the capillary glucose result is not consistent with the patient's clinical signs and symptoms, glucose testing should be repeated with either an arterial or venous sample on the glucometer or sent to the main labortory for testing. Comment 10/10/2021 9:30 AM EST [facility] Manager Special Events ID Sydni Nelson N 10/10/2021 9:30 AM EST [facility] Device ID [id number] 10/10/2021 9:30 AM EST [facility] Specimen Type POC Arterial 10/10/2021 9:30 AM EST [facility] Blood Arterial blood specimen / Unknown 10/09/2021 11:08 AM EST 10/10/2021 9:30 AM EST us Pam Uriostegui MD LAB POINT OF CARE TEST DOCKED DEVICE UNSOLICITED RESULTS Final Result Performing Organization Address City/[facility] Co de Phone Number [facility] [address] [place] [address] * POCT glucose meter (10/09/2021 7:26 AM EST) POCT Glucose 79 74 - 99 mg/dL 10/09/2021 7:40 AM EST [facility] Comment:Accuracy of a glucos e result obtained from a capillary whole blood specimen relies upon adequate, non-compromised capillary blood flow. If the capillary glucose result is not consistent with the patient's clinical signs and symptoms, glucose testing should be repeated with either an arterial or venous sample on the glucometer or sent to the main labortory for testing. Comment 10/09/2021 7:40 AM EST [facility] Manager Special Events ID Myrtle Dumont 10/09/2021 7:40 AM EST [facility] Device ID [id number] 10/09/2021 7:40 AM EST [facility] Specimen Type POC Capillary 10/09/2021 7:40 AM EST [facility] Blood Capillary blood specimen / Unknown 10/09/2021 7:26 AM EST 10/09/2021 7:40 AM EST Kemar Healy MD LAB POINT OF CARE TE ST DOCKED DEVICE UNSOLICITED RESULTS Final Result Performing Organization Address City/State/[facility] Co de Phone Number [facility] [address] [place] [address] * (ABNORMAL) POCT glucose meter (10/09/2021 3:43 AM EST) [facility] POCT Glucose 72(L) 74 - 99 mg/dL 10/09/2021 4:55 AM EST [facility] Comment:Accuracy of a glucos e result obtained from a capillary whole blood specimen relies upon adequate, non-compromised capillary blood flow. If the capillary glucose result is not consistent with the patient's clinical signs and symptoms, glucose testing should be repeated with either an arterial or venous sample on the glucometer or sent to the main labortory for testing. Comment 10/09/2021 4:55 AM EST [facility] Manager Special Events ID Shellie Mullen 10/09/2021 4:55 AM EST [facility] Device ID [id number] 10/09/2021 4:55 AM EST [facility] Specimen Type POC Capillary 10/09/2021 4:55 AM EST [facility] Blood Capillary blood specimen / Unknown 10/09/2021 3:43 AM EST 10/09/2021 4:55 AM EST us Kemar Healy MD LAB POINT OF CARE TE ST DOCKED DEVICE UNSOLICITED RESULTS Final Result Performing Organization Address City/[facility] Co de Phone Number [facility] [address] [place] [address] * POCT glucose meter (10/08/2021 8:15 PM EST) POCT Glucose 95 74 - 99 mg/dL 10/08/2021 8:20 PM EST [facility] Comment:Accuracy of a glucos e result obtained from a capillary whole blood specimen relies upon adequate, non-compromised capillary blood flow. If the capillary glucose result is not consistent with the patient's clinical signs and symptoms, glucose testing should be repeated with either an arterial or venous sample on the glucometer or sent to the main labortory for testing. Comment 10/08/2021 8:20 PM EST [facility] Manager Special Events ID Kimber Rizvi Yessy 10/08/2021 8:20 PM EST [facility] Device ID [id number] 10/08/2021 8:20 PM EST [facility] Specimen Type POC Capillary 10/08/2021 8:20 PM EST [facility] Blood Capillary blood specimen / Unknown 10/08/2021 8:15 PM EST 10/08/2021 8:20 PM EST us Kemar Healy MD LAB POINT OF CARE TE ST DOCKED DEVICE UNSOLICITED RESULTS Final Result Performing Organization Address [facility] Phone Number [facility] [address] [place] [address] * POCT glucose meter (10/08/2021 3:32 PM EST) POCT Glucose 88 74 - 99 mg/dL 10/08/2021 4:10 PM EST [facility] Comment:Accuracy of a glucos e result obtained from a capillary whole blood specimen relies upon adequate, non-compromised capillary blood flow. If the capillary glucose result is not consistent with the patient's clinical signs and symptoms, glucose testing should be repeated with either an arterial or venous sample on the glucometer or sent to the main labortory for testing. Comment 10/08/2021 4:10 PM EST [facility] Manager Special Events ID Vicky Vang 10/08/2021 4:10 PM EST [facility] Device ID [id number] 10/08/2021 4:10 PM EST [facility] Specimen Type POC Capillary 10/08/2021 4:10 PM EST [facility] Blood Capillary blood specimen / Unknown 10/08/2021 3:32 PM EST 10/08/2021 4:10 PM EST us Kemar Healy MD LAB POINT OF CARE TE ST DOCKED DEVICE UNSOLICITED RESULTS Final Result Performing Organization Address City/[facility]/ZIP Co de Phone Number [facility] [address] [place] [address] * POCT glucose meter (10/08/2021 11:34 AM EST) Pathologist [facility] POCT Glucose 94 74 - 99 mg/dL 10/08/2021 2:05 PM EST [facility] Comment:Accuracy of a glucos e result obtained from a capillary whole blood specimen relies upon adequate, non-compromised capillary blood flow. If the capillary glucose result is not consistent with the patient's clinical signs and symptoms, glucose testing should be repeated with either an arterial or venous sample on the glucometer or sent to the main labortory for testing. Comment 10/08/2021 2:05 PM EST [facility] Manager Special Events ID Vicky Vang 10/08/2021 2:05 PM EST [facility] Device ID [id number] 10/08/2021 2:05 PM EST [facility] Specimen Type POC Capillary 10/08/2021 2:05 PM EST [facility] Blood Capillary blood specimen / Unknown 10/08/2021 11:34 AM EST 10/08/2021 2:05 PM EST us Kemar Healy MD LAB POINT OF CARE TE ST DOCKED DEVICE UNSOLICITED RESULTS Final Result [facility] [address] [place] [address] * (ABNORMAL) POCT glucose meter (10/08/2021 7:13 AM EST) POCT Glucose 100(H) 74 - 99 mg/dL 10/08/2021 10:00 AM EST [facility] Comment:Accuracy of a glucos e result obtained from a capillary whole blood specimen relies upon adequate, non-compromised capillary blood flow. If the capillary glucose result is not consistent with the patient's clinical signs and symptoms, glucose testing should be repeated with either an arterial or venous sample on the glucometer or sent to the main labortory for testing. Comment 10/08/2021 10:00 AM EST [facility] Manager Special Events ID Vicky Vang 10/08/2021 10:00 AM EST [facility] Device ID [id number] 10/08/2021 10:00 AM EST [facility] Specimen Type POC Capillary 10/08/2021 10:00 AM EST [facility] Blood Capillary blood specimen / Unknown 10/08/2021 7:13 AM EST 10/08/2021 10:00 AM EST us Kemar Healy MD LAB POINT OF CARE TE ST DOCKED DEVICE UNSOLICITED RESULTS Final Result Performing Organization Address [facility] de Phone Number [facility] [address] [place] [address] * (ABNORMAL) C-Reactive Protein, Plasma (10/08/2021 3:57 AM EST) Pathologist [facility] CRP, Plasma 36.0(H) <=8.0 mg/L 10/08/2021 4:54 AM EST [facility] Blood Venous blood specimen / Unknown Venipuncture / Unknown 10/08/2021 3:57 AM EST 10/08/2021 4:22 AM EST Narrative [facility] - 10/08/2021 4:54 AM EST This CRP test is appropriate for assessment of infection, systemic inflammation and/or tissue injury. To assess cardiovascular disease risk order high sensitivity CRP (CRPH). us Kemar Healy MD LAB BLOOD ORDERABLES Final Resul t Performing Organization Address [facility] Co de Phone Number [facility] [address] [place] [address] * (ABNORMAL) Magnesium, Plasma (10/08/2021 3:57 AM EST) Magnesium, Plasma 1.4(L) 1.9 - 2.4 mg/dL 10/08/2021 4:54 AM EST [facility] Blood Venous blood specimen / Unknown Venipuncture / Unknown 10/08/2021 3:57 AM EST 10/08/2021 4:22 AM EST us Kemar Healy MD LAB BLOOD ORDERABLES Final Resul t [facility] [address] [place], [place] [id number] * (ABNORMAL) Renal Function Panel, Plasma (10/08/2021 3:57 AM EST) Glucose, Plasma 77 74 - 99 mg/dL 10/08/2021 4:54 AM EST [facility] BUN, Plasma 3(L) 7 - 21 mg/dL 10/08/2021 4:54 AM EST [facility] Creatinine, Plasma 0.53(L) 0.60 - 1.10 mg/dL 10/08/2021 4:54 AM EST [facility] BUN/Creatinine Ratio 6 10/08/2021 4:54 AM EST [facility] Sodium, Plasma 137 136 - 145 mmol/L 10/08/2021 4:54 AM EST [facility] Potassium, Plasma 3.6(L) 3.7 - 4.8 mmol/L 10/08/2021 4:54 AM EST [facility] Chloride, Plasma 105 97 - 107 mmol/L 10/08/2021 4:54 AM EST [facility] CO2, Plasma 22 22 - 29 mmol/L 10/08/2021 4:54 AM EST [facility] Anion Gap 10 6 - 16 mmol/L 10/08/2021 4:54 AM EST [facility] Total Calcium, Plasma 8.3(L) 8.9 - 10.2 mg/dL 10/08/2021 4:54 AM EST [facility] Phosphorus, Plasma 5.0(H) 2.5 - 4.5 mg/dL 10/08/2021 4:54 AM EST [facility] Albumin, Plasma 2.1(L) 3.5 - 5.2 g/dL 10/08/2021 4:54 AM EST [facility] eGFR >60 >60 mL/min/1.7 3m*2 10/08/2021 4:54 AM EST [facility] Comment:eGFR = estimated GFR ; eGFR units = mL/min/1.73 sq meters Chronic Kidney Disease is considered if eGFR <60 mL/min/1.73 sq meters Kidney failure is considered if eGFR is <15 mL/min/1.73 sq meters. eGFR assumes steady state plasma creatinine concentration; not applicable if renal function is rapidly changing or patient is on dialysis. eGFR, if AFR/AM >60 >60 mL/min/1.7 3m*2 10/08/2021 4:54 AM EST [facility] Comment:eGFR = estimated GFR ; eGFR units = mL/min/1.73 sq meters Chronic Kidney Disease is considered if eGFR <60 mL/min/1.73 sq meters Kidney failure is considered if eGFR is <15 mL/min/1.73 sq meters. eGFR assumes steady state plasma creatinine concentration; not applicable if renal function is rapidly changing or patient is on dialysis. Blood Venous blood specimen / Unknown Venipuncture / Unknown 10/08/2021 3:57 AM EST 10/08/2021 4:22 AM EST us Kemar Healy MD LAB BLOOD ORDERABLES Final Resul t Performing Organization Address City/State/[facility] Co de Phone Number [facility] [address] [place] [id number] * (ABNORMAL) CBC and Differential (10/08/2021 3:57 AM EST) WBC Count 6.83 3.70 - 10.30 10*3/uL LAB HEMATOLOGY METHOD 10/08/2021 4:31 AM EST [facility] RBC Count 2.38(L) 3.90 - 5.20 10*6/uL LAB HEMATOLOGY METHOD 10/08/2021 4:31 AM EST [facility] HGB 7.7(L) 11.2 - 15.7 g/dL LAB HEMATOLOGY METHOD 10/08/2021 4:31 AM EST [facility] HCT 24.9(L) 34.0 - 45.0 % LAB HEMATOLOGY METHOD 10/08/2021 4:31 AM EST [facility] Platelet Count 410(H) 155 - 369 10*3/uL LAB HEMATOLOGY METHOD 10/08/2021 4:31 AM EST [facility] MCV 105(H) 79 - 98 fL LAB HEMATOLOGY METHOD 10/08/2021 4:31 AM EST [facility] MCH 32.4(H) 26.0 - 32.0 pg LAB HEMATOLOGY METHOD 10/08/2021 4:31 AM EST [facility] MCHC 30.9 30.7 - 35.5 g/dL LAB HEMATOLOGY METHOD 10/08/2021 4:31 AM EST [facility] RDW 20.2(H) 11.5 - 14.5 % LAB HEMATOLOGY METHOD 10/08/2021 4:31 AM EST [facility] MPV 10.0 8.8 - 12.5 fL LAB HEMATOLOGY METHOD 10/08/2021 4:31 AM EST [facility] nRBC 0.0 <=0.0 per 100 WBCs LAB HEMATOLOGY METHOD 10/08/2021 4:31 AM EST [facility] Differential Type Automated LAB HEMATOLOGY METHOD 10/08/2021 4:31 AM EST [facility] Neutrophils % 48.0 % LAB HEMATOLOGY METHOD 10/08/2021 4:31 AM EST [facility] Lymphocytes % 31.0 % LAB HEMATOLOGY METHOD 10/08/2021 4:31 AM EST [facility] Monocytes % 15.0 % LAB HEMATOLOGY METHOD 10/08/2021 4:31 AM EST [facility] Eosinophils % 4.0 % LAB HEMATOLOGY METHOD 10/08/2021 4:31 AM EST [facility] Basophils % 1.0 % LAB HEMATOLOGY METHOD 10/08/2021 4:31 AM EST [facility] Immature Granulocytes % 1.0 % LAB HEMATOLOGY METHOD 10/08/2021 4:31 AM EST [facility] Neutrophils Absolute 3.35 1.60 - 6.10 10*3/uL LAB HEMATOLOGY METHOD 10/08/2021 4:31 AM EST [facility] Lymphocytes Absolute 2.14 1.20 - 3.90 10*3/uL LAB HEMATOLOGY METHOD 10/08/2021 4:31 AM EST [facility] Monocytes Absolute 0.99(H) 0.30 - 0.90 10*3/uL LAB HEMATOLOGY METHOD 10/08/2021 4:31 AM EST [facility] Eosinophils Absolute 0.27 0.00 - 0.50 10*3/uL LAB HEMATOLOGY METHOD 10/08/2021 4:31 AM EST [facility] Basophils Absolute 0.04 0.00 - 0.10 10*3/uL LAB HEMATOLOGY METHOD 10/08/2021 4:31 AM EST [facility] Immature Granulocytes Absolute 0.04 0.00 - 0.06 10*3/uL LAB HEMATOLOGY METHOD 10/08/2021 4:31 AM EST [facility] Blood Venous blood specimen / Unknown Venipuncture / Unknown 10/08/2021 3:57 AM EST 10/08/2021 4:25 AM EST Narrative [facility] - 10/08/2021 4:31 AM EST Therapeutic decision making should be based on absolute values, rather than percentages. us Kemar Healy MD LAB BLOOD ORDERABLES Final Resul t Performing Organization Address City/[facility]/ZIP Co de Phone Number [facility] [address] [place] [address] * POCT glucose meter (10/07/2021 8:56 PM EST) [facility] POCT Glucose 94 74 - 99 mg/dL 10/08/2021 2:35 AM EST [facility] Comment:Accuracy of a glucos e result obtained from a capillary whole blood specimen relies upon adequate, non-compromised capillary blood flow. If the capillary glucose result is not consistent with the patient's clinical signs and symptoms, glucose testing should be repeated with either an arterial or venous sample on the glucometer or sent to the main labortory for testing. Comment 10/08/2021 2:35 AM EST [facility] Manager Special Events ID Karla Alves 10/08/2021 2:35 AM EST [facility] Device ID [id number] 10/08/2021 2:35 AM EST [facility] Specimen Type POC Capillary 10/08/2021 2:35 AM EST [facility] Blood Capillary blood specimen / Unknown 10/07/2021 8:56 PM EST 10/08/2021 2:35 AM EST us Kemar Healy MD LAB POINT OF CARE TE ST DOCKED DEVICE UNSOLICITED RESULTS Final Result Performing Organization Address City/[facility]/ZIP Co de Phone Number [facility] [address] [place] [address] * SARS CoV-2/COVID-19 by PCR (10/07/2021 4:11 PM EST) [facility] SARS CoV-2/COVID-1 9 RNA PCR Result Not Detected Not Detected 10/07/2021 7:28 PM EST [facility] Swab Nasopharyngeal structure / Unknown Non-blood Collection / Unknown 10/07/2021 4:11 PM EST 10/07/2021 4:11 PM EST Narrative [facility] - 10/07/2021 7:28 PM EST This assay is for in vitro diagnostic use under FDA emergency use authorization only. Negative results do not preclude infection with the SARS CoV-2 virus and should not be the sole basis of a patient treatment/management or public health decision. Follow up testing should be performed according to the current CDC recommendations. This test was performed using the TaqPath COVID-19 assay, an RX-GOG-scokm method. The limit of detection (LoD) for this assay is 250 copies/mL. Use of the TaqPath COVID-19 assay in an asymptomatic screening population is intended to be used as part of an infection control plan that may include additional preventative measures, such as a predefined serial testing plan or directed testing of high-risk individuals. Negative results should be considered presumptive and do not preclude current or future infection obtained through community transmission or other exposures. Negative results must be considered in the context of an individual's recent exposures, history, presence of clinical signs and symptoms consistent with COVID-19. Kemar Healy MD LAB MICROBIOLOGY - GENERAL ORDER SIMRAN Final Result [facility] [address] [place] [address] * POCT glucose meter (10/07/2021 3:25 PM EST) [facility] POCT Glucose 81 74 - 99 mg/dL 10/07/2021 3:35 PM EST [facility] Comment:Accuracy of a glucos e result obtained from a capillary whole blood specimen relies upon adequate, non-compromised capillary blood flow. If the capillary glucose result is not consistent with the patient's clinical signs and symptoms, glucose testing should be repeated with either an arterial or venous sample on the glucometer or sent to the main labortory for testing. Comment 10/07/2021 3:35 PM EST [facility] Manager Special Events ID Vicky Vang 10/07/2021 3:35 PM EST [facility] Device ID [id number] 10/07/2021 3:35 PM EST [facility] Specimen Type POC Capillary 10/07/2021 3:35 PM EST [facility] Blood Capillary blood specimen / Unknown 10/07/2021 3:25 PM EST 10/07/2021 3:35 PM EST us Kemar Healy MD LAB POINT OF CARE TE ST DOCKED DEVICE UNSOLICITED RESULTS Final Result [facility] [address] [place] [address] * PERIPHERAL IV (SMARTFORM LINK) (10/07/2021 2:30 PM EST) Myrtle Paige RN - 10/07/2021 2:30 PM EST Myrtle Jaramillo RN ? 10/07/2021 ??2:30 PM Insert peripheral IV Date/Time: 10/07/2021 2:30 PM Performed by: Myrtle Jaramillo RN Authorized by: Kemar Healy MD Hand hygiene: Hand hygiene performed prior to insertion ?? Inserted using aseptic techniques: Yes ?? Preparation: ??Skin prepped with chg Orientation: ??Left Location: ??Forearm Catheter placed: ??Peripheral IV Catheter size: ??20g/1.88in Number of attempts: ??1 IV flushes: ??Without difficulty and positive blood return noted and IV luer locked Patient tolerance: ??Patient tolerated the procedure well, age appropriate response and there were no complications IV site covered with: ??Transparent semipermeable dressing Education provided to: ??Patient us Kemar Healy MD IV THERAPY ORDERABLES Final Resu lt * (ABNORMAL) POCT glucose meter (10/07/2021 11:51 AM EST) POCT Glucose 102(H) 74 - 99 mg/dL 10/07/2021 12:05 PM EST [facility] Comment:Accuracy of a glucos e result obtained from a capillary whole blood specimen relies upon adequate, non-compromised capillary blood flow. If the capillary glucose result is not consistent with the patient's clinical signs and symptoms, glucose testing should be repeated with either an arterial or venous sample on the glucometer or sent to the main labortory for testing. Comment 10/07/2021 12:05 PM EST [facility] Manager Special Events ID Vicky Vang 10/07/2021 12:05 PM EST [facility] Device ID [id number] 10/07/2021 12:05 PM EST [facility] Specimen Type POC Capillary 10/07/2021 12:05 PM EST [facility] Blood Capillary blood specimen / Unknown 10/07/2021 11:51 AM EST 10/07/2021 12:05 PM EST Kemar Healy MD LAB POINT OF CARE TE ST DOCKED DEVICE UNSOLICITED RESULTS Final Result Performing Organization Address City/[facility] Co de Phone Number [facility] [address] [place] [address] * POCT glucose meter (10/07/2021 8:07 AM EST) [facility] POCT Glucose 79 74 - 99 mg/dL 10/07/2021 8:45 AM EST [facility] Comment:Accuracy of a glucos e result obtained from a capillary whole blood specimen relies upon adequate, non-compromised capillary blood flow. If the capillary glucose result is not consistent with the patient's clinical signs and symptoms, glucose testing should be repeated with either an arterial or venous sample on the glucometer or sent to the main labortory for testing. Comment 10/07/2021 8:45 AM EST [facility] Manager Special Events ID Vicky Vang 10/07/2021 8:45 AM EST [facility] Device ID [id number] 10/07/2021 8:45 AM EST [facility] Specimen Type POC Capillary 10/07/2021 8:45 AM EST [facility] Blood Capillary blood specimen / Unknown 10/07/2021 8:07 AM EST 10/07/2021 8:45 AM EST Kemar Healy MD LAB POINT OF CARE TE ST DOCKED DEVICE UNSOLICITED RESULTS Final Result Performing Organization Address City/[facility]/ZIP Co de Phone Number [facility] [address] [place] [address] * (ABNORMAL) POCT glucose meter (10/06/2021 7:58 PM EST) [facility] POCT Glucose 103(H) 74 - 99 mg/dL 10/06/2021 8:00 PM EST [facility] Comment:Accuracy of a glucos e result obtained from a capillary whole blood specimen relies upon adequate, non-compromised capillary blood flow. If the capillary glucose result is not consistent with the patient's clinical signs and symptoms, glucose testing should be repeated with either an arterial or venous sample on the glucometer or sent to the main labortory for testing. Comment 10/06/2021 8:00 PM EST [facility] Manager Special Events ID Keerthi Gonzalez 10/06/2021 8:00 PM EST [facility] Device ID [id number] 10/06/2021 8:00 PM EST [facility] Specimen Type POC Capillary 10/06/2021 8:00 PM EST [facility] Blood Capillary blood specimen / Unknown 10/06/2021 7:58 PM EST 10/06/2021 8:00 PM EST Kemar Healy MD LAB POINT OF CARE TE ST DOCKED DEVICE UNSOLICITED RESULTS Final Result [facility] [address] [place] [address] * POCT glucose meter (10/06/2021 4:19 PM EST) [facility] POCT Glucose 87 74 - 99 mg/dL 10/06/2021 4:40 PM EST [facility] Comment:Accuracy of a glucos e result obtained from a capillary whole blood specimen relies upon adequate, non-compromised capillary blood flow. If the capillary glucose result is not consistent with the patient's clinical signs and symptoms, glucose testing should be repeated with either an arterial or venous sample on the glucometer or sent to the main labortory for testing. Comment 10/06/2021 4:40 PM EST [facility] Manager Special Events ID Yadira Mcgarry 10/06/2021 4:40 PM EST [facility] Device ID [id number] 10/06/2021 4:40 PM EST [facility] Specimen Type POC Capillary 10/06/2021 4:40 PM EST [facility] Blood Capillary blood specimen / Unknown 10/06/2021 4:19 PM EST 10/06/2021 4:40 PM EST Kemar Healy MD LAB POINT OF CARE TE ST DOCKED DEVICE UNSOLICITED RESULTS Final Result Performing Organization Address [facility] Co de Phone Number [facility] [address] [place] [address] * SARS CoV-2/COVID-19 by PCR (10/06/2021 12:36 PM EST) [facility] SARS CoV-2/COVID-1 9 RNA PCR Result Not Detected Not Detected 10/06/2021 4:09 PM EST [facility] Swab Nasopharyngeal structure / Unknown Non-blood Collection / Unknown 10/06/2021 12:36 PM EST 10/06/2021 1:08 PM EST Narrative [facility] - 10/06/2021 4:09 PM EST This assay is for in vitro diagnostic use under FDA emergency use authorization only. Negative results do not preclude infection with the SARS CoV-2 virus and should not be the sole basis of a patient treatment/management or public health decision. Follow up testing should be performed according to the current CDC recommendations. This test was performed using the [employer] SARS CoV-2 assay, a PCR-based method. The limit of detection (LoD) for this assay is 40 genome equivalents/mL. Negative results should be considered presumptive and do not preclude current or future infection obtained through community transmission or other exposures. Negative results must be considered in the context of an individual's recent exposures, history, presence of clinical signs and symptoms consistent with COVID-19. Kemar Healy MD LAB MICROBIOLOGY - GENERAL ORDER SIMRAN Final Result Performing Organization Address [facility] Co de Phone Number [facility] [address] [place] [address] * (ABNORMAL) POCT glucose meter (10/06/2021 12:30 PM EST) [facility] POCT Glucose 104(H) 74 - 99 mg/dL 10/06/2021 12:35 PM EST [facility] Comment:Accuracy of a glucos e result obtained from a capillary whole blood specimen relies upon adequate, non-compromised capillary blood flow. If the capillary glucose result is not consistent with the patient's clinical signs and symptoms, glucose testing should be repeated with either an arterial or venous sample on the glucometer or sent to the main labortory for testing. Comment 10/06/2021 12:35 PM EST [facility] Manager Special Events ID Manda Munroe 022 12:35 PM EST [facility] Device ID [id number] 10/06/2021 12:35 PM EST [facility] Specimen Type POC Capillary 10/06/2021 12:35 PM EST [facility] Blood Capillary blood specimen / Unknown 10/06/2021 12:30 PM EST 10/06/2021 12:35 PM EST us Kemar Healy MD LAB POINT OF CARE TE ST DOCKED DEVICE UNSOLICITED RESULTS Final Result Performing Organization Address [facility] Co ct Phone Number [facility] [address] [place] [address] * POCT glucose meter (10/06/2021 7:57 AM EST) [facility] POCT Glucose 91 74 - 99 mg/dL 10/06/2021 8:10 AM EST [facility] Comment:Accuracy of a glucos e result obtained from a capillary whole blood specimen relies upon adequate, non-compromised capillary blood flow. If the capillary glucose result is not consistent with the patient's clinical signs and symptoms, glucose testing should be repeated with either an arterial or venous sample on the glucometer or sent to the main labortory for testing. Comment 10/06/2021 8:10 AM EST [facility] Manager Special Events ID Yadira Mcgarry 10/06/2021 8:10 AM EST [facility] Device ID [id number] 10/06/2021 8:10 AM EST [facility] Specimen Type POC Capillary 10/06/2021 8:10 AM EST [facility] Blood Capillary blood specimen / Unknown 10/06/2021 7:57 AM EST 10/06/2021 8:10 AM EST us Kemar Healy MD LAB POINT OF CARE TE ST DOCKED DEVICE UNSOLICITED RESULTS Final Result Performing Organization Address City/[facility]/ZIP Co de Phone Number [facility] [address] [place] [address] * (ABNORMAL) Magnesium, Plasma (10/06/2021 4:28 AM EST) Magnesium, Plasma 1.8(L) 1.9 - 2.4 mg/dL 10/06/2021 5:59 AM EST [facility] Blood Venous blood specimen / Unknown Venipuncture / Unknown 10/06/2021 4:28 AM EST 10/06/2021 5:13 AM EST us Kemar Healy MD LAB BLOOD ORDERABLES Final Resul t [facility] [address] [place] [address] * (ABNORMAL) Renal Function Panel, Plasma (10/06/2021 4:28 AM EST) Glucose, Plasma 81 74 - 99 mg/dL 10/06/2021 6:04 AM EST [facility] BUN, Plasma <3(L) 7 - 21 mg/dL 10/06/2021 6:04 AM EST [facility] Creatinine, Plasma 0.62 0.60 - 1.10 mg/dL 10/06/2021 6:04 AM EST [facility] BUN/Creatinine Ratio 10/06/2021 6:04 AM EST [facility] Comment:Unable to calculate, at least one value is above or below the detection limit. Sodium, Plasma 138 136 - 145 mmol/L 10/06/2021 6:04 AM EST [facility] Potassium, Plasma 3.5(L) 3.7 - 4.8 mmol/L 10/06/2021 6:04 AM EST [facility] Chloride, Plasma 104 97 - 107 mmol/L 10/06/2021 6:04 AM EST [facility] CO2, Plasma 24 22 - 29 mmol/L 10/06/2021 6:04 AM EST [facility] Anion Gap 10 6 - 16 mmol/L 10/06/2021 6:04 AM EST [facility] Total Calcium, Plasma 8.3(L) 8.9 - 10.2 mg/dL 10/06/2021 6:04 AM EST [facility] Phosphorus, Plasma 4.8(H) 2.5 - 4.5 mg/dL 10/06/2021 6:04 AM EST [facility] Albumin, Plasma 2.0(L) 3.5 - 5.2 g/dL 10/06/2021 6:04 AM EST [facility] eGFR >60 >60 mL/min/1.7 3m*2 10/06/2021 6:04 AM EST [facility] Comment:eGFR = estimated GFR ; eGFR units = mL/min/1.73 sq meters Chronic Kidney Disease is considered if eGFR <60 mL/min/1.73 sq meters Kidney failure is considered if eGFR is <15 mL/min/1.73 sq meters. eGFR assumes steady state plasma creatinine concentration; not applicable if renal function is rapidly changing or patient is on dialysis. eGFR, if AFR/AM >60 >60 mL/min/1.7 3m*2 10/06/2021 6:04 AM EST [facility] Comment:eGFR = estimated GFR ; eGFR units = mL/min/1.73 sq meters Chronic Kidney Disease is considered if eGFR <60 mL/min/1.73 sq meters Kidney failure is considered if eGFR is <15 mL/min/1.73 sq meters. eGFR assumes steady state plasma creatinine concentration; not applicable if renal function is rapidly changing or patient is on dialysis. Blood Venous blood specimen / Unknown Venipuncture / Unknown 10/06/2021 4:28 AM EST 10/06/2021 5:13 AM EST us Kemar Healy MD LAB BLOOD ORDERABLES Final Resul t Performing Organization Address City/State/[facility] Co de Phone Number [facility] [address] [place] [address] * (ABNORMAL) POCT glucose meter (10/05/2021 8:34 PM EST) POCT Glucose 108(H) 74 - 99 mg/dL 10/05/2021 8:40 PM EST [facility] Comment:Accuracy of a glucos e result obtained from a capillary whole blood specimen relies upon adequate, non-compromised capillary blood flow. If the capillary glucose result is not consistent with the patient's clinical signs and symptoms, glucose testing should be repeated with either an arterial or venous sample on the glucometer or sent to the main labortory for testing. Comment 10/05/2021 8:40 PM EST [facility] Manager Special Events ID Manda Askew 10/05/19 8:40 PM EST [facility] Device ID [id number] 10/05/2021 8:40 PM EST [facility] Specimen Type POC Capillary 10/05/2021 8:40 PM EST [facility] Blood Capillary blood specimen / Unknown 10/05/2021 8:34 PM EST 10/05/2021 8:40 PM EST us Kemar Healy MD LAB POINT OF CARE TE ST DOCKED DEVICE UNSOLICITED RESULTS Final Result Performing Organization Address City/[facility]/ZIP Co de Phone Number [facility] [address] [place] [address] * (ABNORMAL) POCT glucose meter (10/05/2021 5:03 PM EST) [facility] POCT Glucose 162(H) 74 - 99 mg/dL 10/05/2021 9:45 PM EST [facility] Comment:Accuracy of a glucos e result obtained from a capillary whole blood specimen relies upon adequate, non-compromised capillary blood flow. If the capillary glucose result is not consistent with the patient's clinical signs and symptoms, glucose testing should be repeated with either an arterial or venous sample on the glucometer or sent to the main labortory for testing. Comment 10/05/2021 9:45 PM EST [facility] Manager Special Events ID Manda Munroe 022 9:45 PM EST [facility] Device ID [id number] 10/05/2021 9:45 PM EST [facility] Specimen Type POC Capillary 10/05/2021 9:45 PM EST [facility] Blood Capillary blood specimen / Unknown 10/05/2021 5:03 PM EST 10/05/2021 9:45 PM EST us Kemar Healy MD LAB POINT OF CARE TE ST DOCKED DEVICE UNSOLICITED RESULTS Final Result Performing Organization Address City/[facility]/ZIP Co de Phone Number [facility] [address] [place] [address] * (ABNORMAL) POCT glucose meter (10/05/2021 12:06 PM EST) [facility] POCT Glucose 117(H) 74 - 99 mg/dL 10/05/2021 12:10 PM EST [facility] Comment:Accuracy of a glucos e result obtained from a capillary whole blood specimen relies upon adequate, non-compromised capillary blood flow. If the capillary glucose result is not consistent with the patient's clinical signs and symptoms, glucose testing should be repeated with either an arterial or venous sample on the glucometer or sent to the main labortory for testing. Comment 10/05/2021 12:10 PM EST [facility] Manager Special Events ID Zackary Quiñonez 2 12:10 PM EST [facility] Device ID [id number] 10/05/2021 12:10 PM EST [facility] Specimen Type POC Capillary 10/05/2021 12:10 PM EST [facility] Blood Capillary blood specimen / Unknown 10/05/2021 12:06 PM EST 10/05/2021 12:10 PM EST Kemar Healy MD LAB POINT OF CARE TE ST DOCKED DEVICE UNSOLICITED RESULTS Final Result [facility] [address] [place] [address] * POCT glucose meter (10/05/2021 8:04 AM EST) [facility] POCT Glucose 84 74 - 99 mg/dL 10/05/2021 8:10 AM EST [facility] Comment:Accuracy of a glucos e result obtained from a capillary whole blood specimen relies upon adequate, non-compromised capillary blood flow. If the capillary glucose result is not consistent with the patient's clinical signs and symptoms, glucose testing should be repeated with either an arterial or venous sample on the glucometer or sent to the main labortory for testing. Comment 10/05/2021 8:10 AM EST [facility] Manager Special Events ID Zackary Quiñonez 2 8:10 AM EST [facility] Device ID [id number] 10/05/2021 8:10 AM EST [facility] Specimen Type POC Capillary 10/05/2021 8:10 AM EST [facility] Blood Capillary blood specimen / Unknown 10/05/2021 8:04 AM EST 10/05/2021 8:10 AM EST Kemar Healy MD LAB POINT OF CARE TE ST DOCKED DEVICE UNSOLICITED RESULTS Final Result Performing Organization Address [facility] Phone Number [facility] [address] [place] [address] * (ABNORMAL) D DIMER, QUANTITATIVE (10/05/2021 4:16 AM EST) D Dimer, Quantitative 5.50(H) <0.50 ug/mL FEU LAB COAGULATION METHOD 10/05/2021 6:01 AM EST [facility] Blood Venous blood specimen / Unknown Venipuncture / Unknown 10/05/2021 4:16 AM EST 10/05/2021 4:37 AM EST Narrative [facility] - 10/05/2021 6:01 AM EST Test performed by [employer] D-dimer assay. Values greater than 0.50 ug/mL FEU should be evaluated for risk stratification of patients with possible venous thromboembolism. In addition to expected elevations following injury or surgery, D-dimer levels increase in normal and increase steadily with normal aging. Values in healthy individuals often exceed the VTE exclusion cutoff value, and should be considered in the clinical context. Kemar Healy MD LAB BLOOD ORDERABLES Final Resul t Performing Organization Address [facility] Phone Number [facility] [address] [place] [address] * (ABNORMAL) C-Reactive Protein, Plasma (10/05/2021 4:16 AM EST) CRP, Plasma 54.3(H) <=8.0 mg/L 10/05/2021 5:14 AM EST [facility] Blood Venous blood specimen / Unknown Venipuncture / Unknown 10/05/2021 4:16 AM EST 10/05/2021 4:38 AM EST Narrative [facility] - 10/05/2021 5:14 AM EST This CRP test is appropriate for assessment of infection, systemic inflammation and/or tissue injury. To assess cardiovascular disease risk order high sensitivity CRP (CRPH). us Kemar Healy MD LAB BLOOD ORDERABLES Final Resul t Performing Organization Address City/[facility]/ZIP Co de Phone Number [facility] [address] [place] [address] * (ABNORMAL) Magnesium, Plasma (10/05/2021 4:16 AM EST) Magnesium, Plasma 1.3(L) 1.9 - 2.4 mg/dL 10/05/2021 5:14 AM EST [facility] Blood Venous blood specimen / Unknown Venipuncture / Unknown 10/05/2021 4:16 AM EST 10/05/2021 4:38 AM EST us Kemar Healy MD LAB BLOOD ORDERABLES Final Resul t Performing Organization Address [facility] Co de Phone Number [facility] [address] [place] [address] * Phosphorus, Plasma (10/05/2021 4:16 AM EST) Phosphorus, Plasma 4.3 2.5 - 4.5 mg/dL 10/05/2021 5:14 AM EST [facility] Blood Venous blood specimen / Unknown Venipuncture / Unknown 10/05/2021 4:16 AM EST 10/05/2021 4:38 AM EST us Kemar Healy MD LAB BLOOD ORDERABLES Final Resul t Performing Organization Address City/[facility] Co de Phone Number [facility] [address] [place] [address] * (ABNORMAL) Comprehensive Metabolic Panel, Plasma (10/05/2021 4:16 AM EST) Glucose, Plasma 82 74 - 99 mg/dL 10/05/2021 5:14 AM EST [facility] BUN, Plasma 3(L) 7 - 21 mg/dL 10/05/2021 5:14 AM EST [facility] Creatinine, Plasma 0.64 0.60 - 1.10 mg/dL 10/05/2021 5:14 AM EST [facility] BUN/Creatinine Ratio 5 10/05/2021 5:14 AM EST [facility] Sodium, Plasma 136 136 - 145 mmol/L 10/05/2021 5:14 AM EST [facility] Potassium, Plasma 4.2 3.7 - 4.8 mmol/L 10/05/2021 5:14 AM [facility] Chloride, Plasma 103 97 - 107 mmol/L 10/05/2021 5:14 AM [facility] CO2, Plasma 25 22 - 29 mmol/L 10/05/2021 5:14 AM [facility] Anion Gap 8 6 - 16 mmol/L 10/05/2021 5:14 AM [facility] Total Calcium, Plasma 8.5(L) 8.9 - 10.2 mg/dL 10/05/2021 5:14 AM [facility] Total Protein 6.6 6.3 - 7.9 g/dL 10/05/2021 5:14 AM [facility] Albumin, Plasma 2.1(L) 3.5 - 5.2 g/dL 10/05/2021 5:14 AM [facility] AST, Plasma 36(H) 11 - 32 U/L 10/05/2021 5:14 AM [facility] ALT, Plasma 14 8 - 33 U/L 10/05/2021 5:14 AM [facility] Alkaline Phosphatase, Plasma 145(H) 35 - 104 U/L 10/05/2021 5:14 AM [facility] Total Bilirubin, Plasma 0.7 0.2 - 1.1 mg/dL 10/05/2021 5:14 AM [facility] eGFR >60 >60 mL/min/1.7 3m*2 10/05/2021 5:14 AM [facility] Comment:eGFR = estimated GFR ; eGFR units = mL/min/1.73 sq meters Chronic Kidney Disease is considered if eGFR <60 mL/min/1.73 sq meters Kidney failure is considered if eGFR is <15 mL/min/1.73 sq meters. eGFR assumes steady state plasma creatinine concentration; not applicable if renal function is rapidly changing or patient is on dialysis. eGFR, if AFR/AM >60 >60 mL/min/1.7 3m*2 10/05/2021 5:14 AM [facility] Comment:eGFR = estimated GFR ; [...] blood specimen / Unknown Venipuncture / Unknown 10/05/2021 4:16 AM EST 10/05/2021 4:38 AM EST us Kemar Healy MD LAB BLOOD ORDERABLES Final Resul t [facility] [address] [place] [id number] * (ABNORMAL) CBC and Differential (10/05/2021 4:16 AM EST) WBC Count 9.51 3.70 - 10.30 10*3/uL LAB HEMATOLOGY METHOD 10/05/2021 4:48 AM EST [facility] RBC Count 2.73(L) 3.90 - 5.20 10*6/uL LAB HEMATOLOGY METHOD 10/05/2021 4:48 AM EST [facility] HGB 8.9(L) 11.2 - 15.7 g/dL LAB HEMATOLOGY METHOD 10/05/2021 4:48 AM EST [facility] HCT 28.5(L) 34.0 - 45.0 % LAB HEMATOLOGY METHOD 10/05/2021 4:48 AM EST [facility] Platelet Count 583(H) 155 - 369 10*3/uL LAB HEMATOLOGY METHOD 10/05/2021 4:48 AM EST [facility] MCV 104(H) 79 - 98 fL LAB HEMATOLOGY METHOD 10/05/2021 4:48 AM EST [facility] MCH 32.6(H) 26.0 - 32.0 pg LAB HEMATOLOGY METHOD 10/05/2021 4:48 AM EST [facility] MCHC 31.2 30.7 - 35.5 g/dL LAB HEMATOLOGY METHOD 10/05/2021 4:48 AM EST [facility] RDW 22.0(H) 11.5 - 14.5 % LAB HEMATOLOGY METHOD 10/05/2021 4:48 AM EST [facility] MPV 10.2 8.8 - 12.5 fL LAB HEMATOLOGY METHOD 10/05/2021 4:48 AM EST [facility] nRBC 0.0 <=0.0 per 100 WBCs LAB HEMATOLOGY METHOD 10/05/2021 4:48 AM EST [facility] Differential Type Automated LAB HEMATOLOGY METHOD 10/05/2021 4:48 AM EST [facility] Neutrophils % 49.0 % LAB HEMATOLOGY METHOD 10/05/2021 4:48 AM EST [facility] Lymphocytes % 31.0 % LAB HEMATOLOGY METHOD 10/05/2021 4:48 AM EST [facility] Monocytes % 12.0 % LAB HEMATOLOGY METHOD 10/05/2021 4:48 AM EST [facility] Eosinophils % 6.0 % LAB HEMATOLOGY METHOD 10/05/2021 4:48 AM EST [facility] Basophils % 1.0 % LAB HEMATOLOGY METHOD 10/05/2021 4:48 AM EST [facility] Immature Granulocytes % 1.0 % LAB HEMATOLOGY METHOD 10/05/2021 4:48 AM EST [facility] Neutrophils Absolute 4.64 1.60 - 6.10 10*3/uL LAB HEMATOLOGY METHOD 10/05/2021 4:48 AM EST [facility] Lymphocytes Absolute 2.94 1.20 - 3.90 10*3/uL LAB HEMATOLOGY METHOD 10/05/2021 4:48 AM EST [facility] Monocytes Absolute 1.18(H) 0.30 - 0.90 10*3/uL LAB HEMATOLOGY METHOD 10/05/2021 4:48 AM EST [facility] Eosinophils Absolute 0.57(H) 0.00 - 0.50 10*3/uL LAB HEMATOLOGY METHOD 10/05/2021 4:48 AM EST [facility] Basophils Absolute 0.06 0.00 - 0.10 10*3/uL LAB HEMATOLOGY METHOD 10/05/2021 4:48 AM EST [facility] Immature Granulocytes Absolute 0.12(H) 0.00 - 0.06 10*3/uL LAB HEMATOLOGY METHOD 10/05/2021 4:48 AM EST [facility] Blood Venous blood specimen / Unknown Venipuncture / Unknown 10/05/2021 4:16 AM EST 10/05/2021 4:41 AM EST [facility] - 10/05/2021 4:48 AM EST Therapeutic decision making should be based on absolute values, rather than percentages. us Kemar Healy MD LAB BLOOD ORDERABLES Final Resul t [facility] [address] [place] [id number] * POCT glucose meter (10/04/2021 9:49 PM EST) [facility] POCT Glucose 92 74 - 99 mg/dL 10/05/2021 3:30 AM EST [facility] Comment:Accuracy of a glucos e result obtained from a capillary whole blood specimen relies upon adequate, non-compromised capillary blood flow. If the capillary glucose result is not consistent with the patient's clinical signs and symptoms, glucose testing should be repeated with either an arterial or venous sample on the glucometer or sent to the main labortory for testing. Comment 10/05/2021 3:30 AM EST [facility] Manager Special Events ID Kassie Pina 10/05/2021 3:30 AM EST [facility] Device ID [id number] 10/05/2021 3:30 AM EST [facility] Specimen Type POC Capillary 10/05/2021 3:30 AM EST [facility] Blood Capillary blood specimen / Unknown 10/04/2021 9:49 PM EST 10/05/2021 3:30 AM EST Kemar Healy MD LAB POINT OF CARE TE ST DOCKED DEVICE UNSOLICITED RESULTS Final Result [facility] [address] [place] [address] * (ABNORMAL) POCT glucose meter (10/04/2021 4:46 PM EST) [facility] POCT Glucose 113(H) 74 - 99 mg/dL 10/04/2021 4:55 PM EST [facility] Comment:Accuracy of a glucos e result obtained from a capillary whole blood specimen relies upon adequate, non-compromised capillary blood flow. If the capillary glucose result is not consistent with the patient's clinical signs and symptoms, glucose testing should be repeated with either an arterial or venous sample on the glucometer or sent to the main labortory for testing. Comment 10/04/2021 4:55 PM EST [facility] Manager Special Events ID Dotty Garcia 022 4:55 PM EST [facility] Device ID [id number] 10/04/2021 4:55 PM EST [facility] Specimen Type POC Capillary 10/04/2021 4:55 PM EST [facility] Blood Capillary blood specimen / Unknown 10/04/2021 4:46 PM EST 10/04/2021 4:55 PM EST Kemar Healy MD LAB POINT OF CARE TE ST DOCKED DEVICE UNSOLICITED RESULTS Final Result Performing Organization Address [facility] Co de Phone Number [facility] [address] [place] [address] * (ABNORMAL) POCT glucose meter (10/04/2021 11:26 AM EST) POCT Glucose 106(H) 74 - 99 mg/dL 10/04/2021 11:30 AM EST [facility] Comment:Accuracy of a glucos e result obtained from a capillary whole blood specimen relies upon adequate, non-compromised capillary blood flow. If the capillary glucose result is not consistent with the patient's clinical signs and symptoms, glucose testing should be repeated with either an arterial or venous sample on the glucometer or sent to the main labortory for testing. Comment 10/04/2021 11:30 AM EST [facility] Manager Special Events ID Dotty Garcia 022 11:30 AM EST [facility] Device ID [id number] 10/04/2021 11:30 AM EST [facility] Specimen Type POC Capillary 10/04/2021 11:30 AM EST [facility] Blood Capillary blood specimen / Unknown 10/04/2021 11:26 AM EST 10/04/2021 11:30 AM EST us Kemar Healy MD LAB POINT OF CARE TE ST DOCKED DEVICE UNSOLICITED RESULTS Final Result Performing Organization Address City/[facility] Co de Phone Number [facility] [address] [place] [address] * (ABNORMAL) POCT glucose meter (10/04/2021 8:02 AM EST) POCT Glucose 70(L) 74 - 99 mg/dL 10/04/2021 8:05 AM EST [facility] Comment:Accuracy of a glucos e result obtained from a capillary whole blood specimen relies upon adequate, non-compromised capillary blood flow. If the capillary glucose result is not consistent with the patient's clinical signs and symptoms, glucose testing should be repeated with either an arterial or venous sample on the glucometer or sent to the main labortory for testing. Comment 10/04/2021 8:05 AM EST [facility] Manager Special Events ID Dotty Garcia 022 8:05 AM EST [facility] Device ID [id number] 10/04/2021 8:05 AM EST [facility] Specimen Type POC Capillary 10/04/2021 8:05 AM EST [facility] Blood Capillary blood specimen / Unknown 10/04/2021 8:02 AM EST 10/04/2021 8:05 AM EST Kemar Helay MD LAB POINT OF CARE TE ST DOCKED DEVICE UNSOLICITED RESULTS Final Result Performing Organization Address City/[facility] Co de Phone Number [facility] [address] [place] [address] * (ABNORMAL) POCT glucose meter (10/04/2021 4:33 AM EST) [facility] POCT Glucose 100(H) 74 - 99 mg/dL 10/04/2021 10:05 PM EST [facility] Comment:Accuracy of a glucos e result obtained from a capillary whole blood specimen relies upon adequate, non-compromised capillary blood flow. If the capillary glucose result is not consistent with the patient's clinical signs and symptoms, glucose testing should be repeated with either an arterial or venous sample on the glucometer or sent to the main labortory for testing. Comment 10/04/2021 10:05 PM EST [facility] Manager Special Events ID Breanne Mariano 10/04/2021 10:05 PM EST [facility] Device ID [id number] 10/04/2021 10:05 PM EST [facility] Specimen Type POC Capillary 10/04/2021 10:05 PM EST [facility] Blood Capillary blood specimen / Unknown 10/04/2021 4:33 AM EST 10/04/2021 10:05 PM EST us Kemar Healy MD LAB POINT OF CARE TE ST DOCKED DEVICE UNSOLICITED RESULTS Final Result Performing Organization Address City/[facility]/ZIP Co de Phone Number [facility] [address] [place] [address] * POCT glucose meter (10/03/2021 7:44 PM EST) [facility] POCT Glucose 97 74 - 99 mg/dL 10/03/2021 8:05 PM EST [facility] Comment:Accuracy of a glucos e result obtained from a capillary whole blood specimen relies upon adequate, non-compromised capillary blood flow. If the capillary glucose result is not consistent with the patient's clinical signs and symptoms, glucose testing should be repeated with either an arterial or venous sample on the glucometer or sent to the main labortory for testing. Comment 10/03/2021 8:05 PM EST [facility] Manager Special Events ID Rachael Seo 10/03/2021 8:05 PM EST [facility] Device ID [id number] 10/03/2021 8:05 PM EST [facility] Specimen Type POC Capillary 10/03/2021 8:05 PM EST [facility] Blood Capillary blood specimen / Unknown 10/03/2021 7:44 PM EST 10/03/2021 8:05 PM EST Kemar Healy MD LAB POINT OF CARE TE ST DOCKED DEVICE UNSOLICITED RESULTS Final Result [facility] [address] [place] [address] * POCT glucose meter (10/03/2021 5:05 PM EST) [facility] POCT Glucose 83 74 - 99 mg/dL 10/03/2021 5:10 PM EST [facility] Comment:Accuracy of a glucos e result obtained from a capillary whole blood specimen relies upon adequate, non-compromised capillary blood flow. If the capillary glucose result is not consistent with the patient's clinical signs and symptoms, glucose testing should be repeated with either an arterial or venous sample on the glucometer or sent to the main labortory for testing. Comment 10/03/2021 5:10 PM EST [facility] Manager Special Events ID Josselin Hollins 10/03/2021 5:10 PM EST [facility] Device ID [id number] 10/03/2021 5:10 PM EST [facility] Specimen Type POC Capillary 10/03/2021 5:10 PM EST [facility] Blood Capillary blood specimen / Unknown 10/03/2021 5:05 PM EST 10/03/2021 5:10 PM EST us Kemar Healy MD LAB POINT OF CARE TE ST DOCKED DEVICE UNSOLICITED RESULTS Final Result Performing Organization Address [facility] Co de Phone Number [facility] [address] [place] [address] * (ABNORMAL) POCT glucose meter (10/03/2021 12:20 PM EST) POCT Glucose 108(H) 74 - 99 mg/dL 10/03/2021 12:25 PM EST [facility] Comment:Accuracy of a glucos e result obtained from a capillary whole blood specimen relies upon adequate, non-compromised capillary blood flow. If the capillary glucose result is not consistent with the patient's clinical signs and symptoms, glucose testing should be repeated with either an arterial or venous sample on the glucometer or sent to the main labortory for testing. Comment 10/03/2021 12:25 PM EST [facility] Manager Special Events ID Josselin Hollins 10/03/2021 12:25 PM EST [facility] Device ID [id number] 10/03/2021 12:25 PM EST [facility] Specimen Type POC Capillary 10/03/2021 12:25 PM EST [facility] Blood Capillary blood specimen / Unknown 10/03/2021 12:20 PM EST 10/03/2021 12:25 PM EST us Kemar Healy MD LAB POINT OF CARE TE ST DOCKED DEVICE UNSOLICITED RESULTS Final Result Performing Organization Address City/[facility]/ZIP Co de Phone Number [facility] [address] [place] [address] * POCT glucose meter (10/03/2021 8:52 AM EST) POCT Glucose 80 74 - 99 mg/dL 10/03/2021 8:55 AM EST [facility] Comment:Accuracy of a glucos e result obtained from a capillary whole blood specimen relies upon adequate, non-compromised capillary blood flow. If the capillary glucose result is not consistent with the patient's clinical signs and symptoms, glucose testing should be repeated with either an arterial or venous sample on the glucometer or sent to the main labortory for testing. Comment 10/03/2021 8:55 AM EST [facility] Manager Special Events ID Emma Sepulveda 8:55 AM EST [facility] Device ID [id number] 10/03/2021 8:55 AM EST [facility] Specimen Type POC Capillary 10/03/2021 8:55 AM EST [facility] Blood Capillary blood specimen / Unknown 10/03/2021 8:52 AM EST 10/03/2021 8:55 AM EST Kemar Healy MD LAB POINT OF CARE TE ST DOCKED DEVICE UNSOLICITED RESULTS Final Result Performing Organization Address [facility] de Phone Number [facility] [address] [place] [address] * (ABNORMAL) POCT glucose meter (10/03/2021 8:03 AM EST) [facility] POCT Glucose 70(L) 74 - 99 mg/dL 10/03/2021 10:55 AM EST [facility] Comment:Accuracy of a glucos e result obtained from a capillary whole blood specimen relies upon adequate, non-compromised capillary blood flow. If the capillary glucose result is not consistent with the patient's clinical signs and symptoms, glucose testing should be repeated with either an arterial or venous sample on the glucometer or sent to the main labortory for testing. Comment 10/03/2021 10:55 AM EST [facility] Manager Special Events ID Josselin Hollins 10/03/2021 10:55 AM EST [facility] Device ID [id number] 10/03/2021 10:55 AM EST [facility] Specimen Type POC Capillary 10/03/2021 10:55 AM EST [facility] Blood Capillary blood specimen / Unknown 10/03/2021 8:03 AM EST 10/03/2021 10:55 AM EST us Kemar Healy MD LAB POINT OF CARE TE ST DOCKED DEVICE UNSOLICITED RESULTS Final Result Performing Organization Address City/[facility]/ZIP Co de Phone Number [facility] [address] [place] [address] * (ABNORMAL) POCT glucose meter (10/03/2021 5:38 AM EST) Pathologist [facility] POCT Glucose 165(H) 74 - 99 mg/dL 10/03/2021 5:40 AM EST [facility] Comment:Accuracy of a glucos e result obtained from a capillary whole blood specimen relies upon adequate, non-compromised capillary blood flow. If the capillary glucose result is not consistent with the patient's clinical signs and symptoms, glucose testing should be repeated with either an arterial or venous sample on the glucometer or sent to the main labortory for testing. Comment 10/03/2021 5:40 AM EST [facility] Manager Special Events ID Geneva Herrera 10/03/2021 5:40 AM EST [facility] Device ID [id number] 10/03/2021 5:40 AM EST [facility] Specimen Type POC Capillary 10/03/2021 5:40 AM EST [facility] Blood Capillary blood specimen / Unknown 10/03/2021 5:38 AM EST 10/03/2021 5:40 AM EST Kemar Healy MD LAB POINT OF CARE TE ST DOCKED DEVICE UNSOLICITED RESULTS Final Result [facility] [address] [place] [address] * (ABNORMAL) POCT glucose meter (10/03/2021 5:24 AM EST) [facility] POCT Glucose 58(L) 74 - 99 mg/dL 10/03/2021 5:25 AM EST [facility] Comment:Accuracy of a glucos e result obtained from a capillary whole blood specimen relies upon adequate, non-compromised capillary blood flow. If the capillary glucose result is not consistent with the patient's clinical signs and symptoms, glucose testing should be repeated with either an arterial or venous sample on the glucometer or sent to the main labortory for testing. Comment 10/03/2021 5:25 AM EST [facility] Manager Special Events ID Geneva Herrera 10/03/2021 5:25 AM EST [facility] Device ID [id number] 10/03/2021 5:25 AM EST [facility] Specimen Type POC Capillary 10/03/2021 5:25 AM EST [facility] Blood Capillary blood specimen / Unknown 10/03/2021 5:24 AM EST 10/03/2021 5:25 AM EST Kemar Healy MD LAB POINT OF CARE TE ST DOCKED DEVICE UNSOLICITED RESULTS Final Result Performing Organization Address City/[facility] Co de Phone Number [facility] [address] [place] [address] * (ABNORMAL) POCT glucose meter (10/03/2021 5:03 AM EST) [facility] POCT Glucose 68(L) 74 - 99 mg/dL 10/03/2021 5:05 AM EST [facility] Comment:Accuracy of a glucos e result obtained from a capillary whole blood specimen relies upon adequate, non-compromised capillary blood flow. If the capillary glucose result is not consistent with the patient's clinical signs and symptoms, glucose testing should be repeated with either an arterial or venous sample on the glucometer or sent to the main labortory for testing. Comment 10/03/2021 5:05 AM EST [facility] Manager Special Events ID Geneva Herrera 10/03/2021 5:05 AM EST [facility] Device ID [id number] 10/03/2021 5:05 AM EST [facility] Specimen Type POC Capillary 10/03/2021 5:05 AM EST [facility] Blood Capillary blood specimen / Unknown 10/03/2021 5:03 AM EST 10/03/2021 5:05 AM EST Kemar Healy MD LAB POINT OF CARE TE ST DOCKED DEVICE UNSOLICITED RESULTS Final Result Performing Organization Address City/[facility]/ZIP Co de Phone Number [facility] [address] [place] [address] * (ABNORMAL) D DIMER, QUANTITATIVE (10/03/2021 3:08 AM EST) Pathologist [facility] D Dimer, Quantitative 4.85(H) <0.50 ug/mL FEU LAB COAGULATION METHOD 10/03/2021 4:46 AM EST [facility] Blood Venous blood specimen / Unknown Venipuncture / Unknown 10/03/2021 3:08 AM EST 10/03/2021 3:34 AM EST Narrative [facility] - 10/03/2021 4:46 AM EST Test performed by [facility] D-dimer assay. Values greater than 0.50 ug/mL FEU should be evaluated for risk stratification of patients with possible venous thromboembolism. In addition to expected elevations following injury or surgery, D-dimer levels increase in normal and increase steadily with normal aging. Values in healthy individuals often exceed the VTE exclusion cutoff value, and should be considered in the clinical context. Kemar Healy MD LAB BLOOD ORDERABLES Final Resul t Performing Organization Address [facility] Co de Phone Number [facility] [address] [place] [address] * (ABNORMAL) C-Reactive Protein, Plasma (10/03/2021 3:08 AM EST) CRP, Plasma 53.0(H) <=8.0 mg/L 10/03/2021 4:07 AM EST [facility] Blood Venous blood specimen / Unknown Venipuncture / Unknown 10/03/2021 3:08 AM EST 10/03/2021 3:34 AM EST Narrative [facility] - 10/03/2021 4:07 AM EST This CRP test is appropriate for assessment of infection, systemic inflammation and/or tissue injury. To assess cardiovascular disease risk order high sensitivity CRP (CRPH). Kemar Healy MD LAB BLOOD ORDERABLES Final Resul t Performing Organization Address City/[facility] Co de Phone Number [facility] [address] [place] [address] * (ABNORMAL) Magnesium, Plasma (10/03/2021 3:08 AM EST) Magnesium, Plasma 1.6(L) 1.9 - 2.4 mg/dL 10/03/2021 4:07 AM EST [facility] Blood Venous blood specimen / Unknown Venipuncture / Unknown 10/03/2021 3:08 AM EST 10/03/2021 3:34 AM EST Kemar Healy MD LAB BLOOD ORDERABLES Final Resul t Performing Organization Address [facility]/ZIP Co de Phone Number [facility] [address] [place] [address] * Phosphorus, Plasma (10/03/2021 3:08 AM EST) Phosphorus, Plasma 3.4 2.5 - 4.5 mg/dL 10/03/2021 4:07 AM EST [facility] Blood Venous blood specimen / Unknown Venipuncture / Unknown 10/03/2021 3:08 AM EST 10/03/2021 3:34 AM EST us Kemar Healy MD LAB BLOOD ORDERABLES Final Resul t Performing Organization Address [facility] de Phone Number [facility] [address] [place] [address] * (ABNORMAL) Comprehensive Metabolic Panel, Plasma (10/03/2021 3:08 AM EST) Pathologist [facility] Glucose, Plasma 82 74 - 99 mg/dL 10/03/2021 4:07 AM EST [facility] BUN, Plasma 6(L) 7 - 21 mg/dL 10/03/2021 4:07 AM EST [facility] Creatinine, Plasma 0.64 0.60 - 1.10 mg/dL 10/03/2021 4:07 AM EST [facility] BUN/Creatinine Ratio 9 10/03/2021 4:07 AM EST [facility] Sodium, Plasma 135(L) 136 - 145 mmol/L 10/03/2021 4:07 AM EST [facility] Potassium, Plasma 3.1(L) 3.7 - 4.8 mmol/L 10/03/2021 4:07 AM EST [facility] Chloride, Plasma 99 97 - 107 mmol/L 10/03/2021 4:07 AM EST [facility] CO2, Plasma 28 22 - 29 mmol/L 10/03/2021 4:07 AM EST [facility] Anion Gap 8 6 - 16 mmol/L 10/03/2021 4:07 AM EST [facility] Total Calcium, Plasma 7.8(L) 8.9 - 10.2 mg/dL 10/03/2021 4:07 AM EST [facility] Total Protein 5.8(L) 6.3 - 7.9 g/dL 10/03/2021 4:07 AM EST [facility] Albumin, Plasma 1.9(L) 3.5 - 5.2 g/dL 10/03/2021 4:07 AM EST [facility] AST, Plasma 33(H) 11 - 32 U/L 10/03/2021 4:07 AM EST [facility] ALT, Plasma 15 8 - 33 U/L 10/03/2021 4:07 AM EST [facility] Alkaline Phosphatase, Plasma 115(H) 35 - 104 U/L 10/03/2021 4:07 AM EST [facility] Total Bilirubin, Plasma 0.6 0.2 - 1.1 mg/dL 10/03/2021 4:07 AM EST [facility] eGFR >60 >60 mL/min/1.7 3m*2 10/03/2021 4:07 AM EST [facility] Comment:eGFR = estimated GFR ; eGFR units = mL/min/1.73 sq meters Chronic Kidney Disease is considered if eGFR <60 mL/min/1.73 sq meters Kidney failure is considered if eGFR is <15 mL/min/1.73 sq meters. eGFR assumes steady state plasma creatinine concentration; not applicable if renal function is rapidly changing or patient is on dialysis. eGFR, if AFR/AM >60 >60 mL/min/1.7 3m*2 10/03/2021 4:07 AM EST [facility] Comment:eGFR = estimated GFR [...] blood specimen / Unknown Venipuncture / Unknown 10/03/2021 3:08 AM EST 10/03/2021 3:34 AM EST us Kemar Healy MD LAB BLOOD ORDERABLES Final Resul t [facility] [address] [place] [address] * (ABNORMAL) CBC and Differential (10/03/2021 3:08 AM EST) [facility] WBC Count 8.83 3.70 - 10.30 10*3/uL LAB HEMATOLOGY METHOD 10/03/2021 3:49 AM EST [facility] RBC Count 2.34(L) 3.90 - 5.20 10*6/uL LAB HEMATOLOGY METHOD 10/03/2021 3:49 AM EST [facility] HGB 7.7(L) 11.2 - 15.7 g/dL LAB HEMATOLOGY METHOD 10/03/2021 3:49 AM EST [facility] HCT 25.1(L) 34.0 - 45.0 % LAB HEMATOLOGY METHOD 10/03/2021 3:49 AM EST [facility] Platelet Count 484(H) 155 - 369 10*3/uL LAB HEMATOLOGY METHOD 10/03/2021 3:49 AM EST [facility] MCV 107(H) 79 - 98 fL LAB HEMATOLOGY METHOD 10/03/2021 3:49 AM EST [facility] MCH 32.9(H) 26.0 - 32.0 pg LAB HEMATOLOGY METHOD 10/03/2021 3:49 AM EST [facility] MCHC 30.7 30.7 - 35.5 g/dL LAB HEMATOLOGY METHOD 10/03/2021 3:49 AM EST [facility] RDW 22.9(H) 11.5 - 14.5 % LAB HEMATOLOGY METHOD 10/03/2021 3:49 AM EST [facility] MPV 10.4 8.8 - 12.5 fL LAB HEMATOLOGY METHOD 10/03/2021 3:49 AM [facility] nRBC 0.0 <=0.0 per 100 WBCs LAB HEMATOLOGY METHOD 10/03/2021 3:49 AM [facility] Differential Type Automated LAB HEMATOLOGY METHOD 10/03/2021 3:49 AM EST [facility] Neutrophils % 57.0 % LAB HEMATOLOGY METHOD 10/03/2021 3:49 AM EST [facility] Lymphocytes % 23.0 % LAB HEMATOLOGY METHOD 10/03/2021 3:49 AM EST [facility] Monocytes % 10.0 % LAB HEMATOLOGY METHOD 10/03/2021 3:49 AM EST [facility] Eosinophils % 8.0 % LAB HEMATOLOGY METHOD 10/03/2021 3:49 AM EST [facility] Basophils % 1.0 % LAB HEMATOLOGY METHOD 10/03/2021 3:49 AM EST [facility] Immature Granulocytes % 1.0 % LAB HEMATOLOGY METHOD 10/03/2021 3:49 AM EST [facility] Neutrophils Absolute 5.09 1.60 - 6.10 10*3/uL LAB HEMATOLOGY METHOD 10/03/2021 3:49 AM EST [facility] Lymphocytes Absolute 2.01 1.20 - 3.90 10*3/uL LAB HEMATOLOGY METHOD 10/03/2021 3:49 AM EST [facility] Monocytes Absolute 0.91(H) 0.30 - 0.90 10*3/uL LAB HEMATOLOGY METHOD 10/03/2021 3:49 AM EST [facility] Eosinophils Absolute 0.66(H) 0.00 - 0.50 10*3/uL LAB HEMATOLOGY METHOD 10/03/2021 3:49 AM EST [facility] Basophils Absolute 0.06 0.00 - 0.10 10*3/uL LAB HEMATOLOGY METHOD 10/03/2021 3:49 AM EST [facility] Immature Granulocytes Absolute 0.10(H) 0.00 - 0.06 10*3/uL LAB HEMATOLOGY METHOD 10/03/2021 3:49 AM EST [facility] Blood Venous blood specimen / Unknown Venipuncture / Unknown 10/03/2021 3:08 AM EST 10/03/2021 3:38 AM EST Narrative [facility] - 10/03/2021 3:49 AM EST Therapeutic decision making should be based on absolute values, rather than percentages. us Kemar Healy MD LAB BLOOD ORDERABLES Final Resul t Performing Organization Address City/State/[facility] Co de Phone Number [facility] [address] [place] [address] * POCT glucose meter (10/02/2021 11:06 PM EST) POCT Glucose 92 74 - 99 mg/dL 10/02/2021 11:10 PM EST [facility] Comment:Accuracy of a glucos e result obtained from a capillary whole blood specimen relies upon adequate, non-compromised capillary blood flow. If the capillary glucose result is not consistent with the patient's clinical signs and symptoms, glucose testing should be repeated with either an arterial or venous sample on the glucometer or sent to the main labortory for testing. Comment 10/02/2021 11:10 PM EST [facility] Manager Special Events ID Geneva Herrera 10/02/2021 11:10 PM EST [facility] Device ID [id number] 10/02/2021 11:10 PM EST [facility] Specimen Type POC Capillary 10/02/2021 11:10 PM EST [facility] Blood Capillary blood specimen / Unknown 10/02/2021 11:06 PM EST 10/02/2021 11:10 PM EST us Kemar Healy MD LAB POINT OF CARE TE ST DOCKED DEVICE UNSOLICITED RESULTS Final Result Performing Organization Address City/[facility]/ZIP Co de Phone Number [facility] [address] [place] [address] * POCT glucose meter (10/02/2021 6:08 PM EST) [facility] POCT Glucose 98 74 - 99 mg/dL 10/02/2021 6:10 PM EST [facility] Comment:Accuracy of a glucos e result obtained from a capillary whole blood specimen relies upon adequate, non-compromised capillary blood flow. If the capillary glucose result is not consistent with the patient's clinical signs and symptoms, glucose testing should be repeated with either an arterial or venous sample on the glucometer or sent to the main labortory for testing. Comment 10/02/2021 6:10 PM EST [facility] Manager Special Events ID Sari Pierre 10/02/2021 6:10 PM EST [facility] Device ID [id number] 10/02/2021 6:10 PM EST [facility] Specimen Type POC Capillary 10/02/2021 6:10 PM EST [facility] Blood Capillary blood specimen / Unknown 10/02/2021 6:08 PM EST 10/02/2021 6:10 PM EST us Kemar Healy MD LAB POINT OF CARE TE ST DOCKED DEVICE UNSOLICITED RESULTS Final Result [facility] [address] [place] [address] * (ABNORMAL) POCT glucose meter (10/02/2021 11:22 AM EST) POCT Glucose 118(H) 74 - 99 mg/dL 10/02/2021 11:35 AM EST [facility] Comment:Accuracy of a glucos e result obtained from a capillary whole blood specimen relies upon adequate, non-compromised capillary blood flow. If the capillary glucose result is not consistent with the patient's clinical signs and symptoms, glucose testing should be repeated with either an arterial or venous sample on the glucometer or sent to the main labortory for testing. Comment 10/02/2021 11:35 AM EST [facility] Manager Special Events ID Sari Pierre Markell 10/02/2021 11:35 AM EST [facility] Device ID [id number] 10/02/2021 11:35 AM EST [facility] Specimen Type POC Capillary 10/02/2021 11:35 AM EST [facility] Blood Capillary blood specimen / Unknown 10/02/2021 11:22 AM EST 10/02/2021 11:35 AM EST Kemar Healy MD LAB POINT OF CARE TE ST DOCKED DEVICE UNSOLICITED RESULTS Final Result Performing Organization Address City/State/[facility] Co de Phone Number [facility] [address] [place] [address] * POCT glucose meter (10/02/2021 6:24 AM EST) [facility] POCT Glucose 82 74 - 99 mg/dL 10/03/2021 10:55 AM EST [facility] Comment:Accuracy of a glucos e result obtained from a capillary whole blood specimen relies upon adequate, non-compromised capillary blood flow. If the capillary glucose result is not consistent with the patient's clinical signs and symptoms, glucose testing should be repeated with either an arterial or venous sample on the glucometer or sent to the main labortory for testing. Comment 10/03/2021 10:55 AM EST [facility] Manager Special Events ID Joselyn Palomino 10:55 AM EST [facility] Device ID [id number] 10/03/2021 10:55 AM EST [facility] Specimen Type POC Capillary 10/03/2021 10:55 AM EST [facility] Blood Capillary blood specimen / Unknown 10/02/2021 6:24 AM EST 10/03/2021 10:55 AM EST us Kemar Healy MD LAB POINT OF CARE TE ST DOCKED DEVICE UNSOLICITED RESULTS Final Result Performing Organization Address City/[facility]/ZIP Co de Phone Number [facility] [address] [place] [address] * Phosphorus (10/02/2021 1:38 AM EST) Phosphorus, Plasma 4.3 2.5 - 4.5 mg/dL 10/02/2021 2:30 AM EST [facility] Blood Venous blood specimen / Unknown Venipuncture / Unknown 10/02/2021 1:38 AM EST 10/02/2021 1:59 AM EST us Hiral Infante MD LAB BLOOD ORDERABLES Final Re sult Performing Organization Address City/[facility] Co de Phone Number [facility] [address] [place] [address] * (ABNORMAL) Magnesium, Plasma (10/02/2021 1:38 AM EST) Magnesium, Plasma 1.7(L) 1.9 - 2.4 mg/dL 10/02/2021 2:30 AM EST [facility] Blood Venous blood specimen / Unknown Venipuncture / Unknown 10/02/2021 1:38 AM EST 10/02/2021 1:59 AM EST us Hiral Infante MD LAB BLOOD ORDERABLES Final Re sult Performing Organization Address City/[facility]/ZIP Co de Phone Number [facility] [address] [place] [address] * (ABNORMAL) Basic Metabolic Panel, Plasma (10/02/2021 1:38 AM EST) Glucose, Plasma 93 74 - 99 mg/dL 10/02/2021 2:30 AM EST [facility] BUN, Plasma 6(L) 7 - 21 mg/dL 10/02/2021 2:30 AM EST [facility] Creatinine, Plasma 0.64 0.60 - 1.10 mg/dL 10/02/2021 2:30 AM EST [facility] BUN/Creatinine Ratio 9 10/02/2021 2:30 AM EST [facility] Sodium, Plasma 134(L) 136 - 145 mmol/L 10/02/2021 2:30 AM EST [facility] Potassium, Plasma 3.0(L) 3.7 - 4.8 mmol/L 10/02/2021 2:30 AM EST [facility] Chloride, Plasma 96(L) 97 - 107 mmol/L 10/02/2021 2:30 AM EST [facility] CO2, Plasma 28 22 - 29 mmol/L 10/02/2021 2:30 AM EST [facility] Anion Gap 10 6 - 16 mmol/L 10/02/2021 2:30 AM EST [facility] Total Calcium, Plasma 8.4(L) 8.9 - 10.2 mg/dL 10/02/2021 2:30 AM EST [facility] eGFR >60 >60 mL/min/1.7 3m*2 10/02/2021 2:30 AM EST [facility] Comment:eGFR = estimated GFR ; eGFR units = mL/min/1.73 sq meters Chronic Kidney Disease is considered if eGFR <60 mL/min/1.73 sq meters Kidney failure is considered if eGFR is <15 mL/min/1.73 sq meters. eGFR assumes steady state plasma creatinine concentration; not applicable if renal function is rapidly changing or patient is on dialysis. eGFR, if AFR/AM >60 >60 mL/min/1.7 3m*2 10/02/2021 2:30 AM EST [facility] Comment:eGFR = estimated GFR [...] blood specimen / Unknown Venipuncture / Unknown 10/02/2021 1:38 AM EST 10/02/2021 1:59 AM EST us Hiral Infante MD LAB BLOOD ORDERABLES Final Re sult [facility] [address] [place] [address] * (ABNORMAL) CBC and Differential (10/02/2021 1:38 AM EST) WBC Count 11.99(H) 3.70 - 10.30 10*3/uL LAB HEMATOLOGY METHOD 10/02/2021 2:09 AM EST [facility] RBC Count 2.61(L) 3.90 - 5.20 10*6/uL LAB HEMATOLOGY METHOD 10/02/2021 2:09 AM EST [facility] HGB 8.5(L) 11.2 - 15.7 g/dL LAB HEMATOLOGY METHOD 10/02/2021 2:09 AM EST [facility] HCT 27.4(L) 34.0 - 45.0 % LAB HEMATOLOGY METHOD 10/02/2021 2:09 AM EST [facility] Platelet Count 543(H) 155 - 369 10*3/uL LAB HEMATOLOGY METHOD 10/02/2021 2:09 AM EST [facility] MCV 105(H) 79 - 98 fL LAB HEMATOLOGY METHOD 10/02/2021 2:09 AM EST [facility] MCH 32.6(H) 26.0 - 32.0 pg LAB HEMATOLOGY METHOD 10/02/2021 2:09 AM EST [facility] MCHC 31.0 30.7 - 35.5 g/dL LAB HEMATOLOGY METHOD 10/02/2021 2:09 AM EST [facility] RDW 23.1(H) 11.5 - 14.5 % LAB HEMATOLOGY METHOD 10/02/2021 2:09 AM EST [facility] MPV 10.4 8.8 - 12.5 fL LAB HEMATOLOGY METHOD 10/02/2021 2:09 AM EST [facility] nRBC 0.0 <=0.0 per 100 WBCs LAB HEMATOLOGY METHOD 10/02/2021 2:09 AM EST [facility] Differential Type Automated LAB HEMATOLOGY METHOD 10/02/2021 2:09 AM EST [facility] Neutrophils % 64.0 % LAB HEMATOLOGY METHOD 10/02/2021 2:09 AM EST [facility] Lymphocytes % 19.0 % LAB HEMATOLOGY METHOD 10/02/2021 2:09 AM EST [facility] Monocytes % 8.0 % LAB HEMATOLOGY METHOD 10/02/2021 2:09 AM EST [facility] Eosinophils % 7.0 % LAB HEMATOLOGY METHOD 10/02/2021 2:09 AM EST [facility] Basophils % 1.0 % LAB HEMATOLOGY METHOD 10/02/2021 2:09 AM EST [facility] Immature Granulocytes % 1.0 % LAB HEMATOLOGY METHOD 10/02/2021 2:09 AM EST [facility] Neutrophils Absolute 7.68(H) 1.60 - 6.10 10*3/uL LAB HEMATOLOGY METHOD 10/02/2021 2:09 AM EST [facility] Lymphocytes Absolute 2.25 1.20 - 3.90 10*3/uL LAB HEMATOLOGY METHOD 10/02/2021 2:09 AM EST [facility] Monocytes Absolute 0.92(H) 0.30 - 0.90 10*3/uL LAB HEMATOLOGY METHOD 10/02/2021 2:09 AM EST [facility] Eosinophils Absolute 0.89(H) 0.00 - 0.50 10*3/uL LAB HEMATOLOGY METHOD 10/02/2021 2:09 AM EST [facility] Basophils Absolute 0.08 0.00 - 0.10 10*3/uL LAB HEMATOLOGY METHOD 10/02/2021 2:09 AM EST [facility] Immature Granulocytes Absolute 0.17(H) 0.00 - 0.06 10*3/uL LAB HEMATOLOGY METHOD 10/02/2021 2:09 AM EST [facility] Blood Venous blood specimen / Unknown Venipuncture / Unknown 10/02/2021 1:38 AM EST 10/02/2021 1:59 AM EST Narrative [facility] - 10/02/2021 2:09 AM EST Therapeutic decision making should be based on absolute values, rather than percentages. us Hiral Infante MD LAB BLOOD ORDERABLES Final Re sult [facility] [address] [place], [place] [id number] * POCT glucose meter (10/01/2021 11:28 PM EST) POCT Glucose 91 74 - 99 mg/dL 10/01/2021 11:35 PM EST [facility] Comment:Accuracy of a glucos e result obtained from a capillary whole blood specimen relies upon adequate, non-compromised capillary blood flow. If the capillary glucose result is not consistent with the patient's clinical signs and symptoms, glucose testing should be repeated with either an arterial or venous sample on the glucometer or sent to the main labortory for testing. Comment 10/01/2021 11:35 PM EST [facility] Manager Special Events ID Rachael Seo 10/01/2021 11:35 PM EST [facility] Device ID [id number] 10/01/2021 11:35 PM EST [facility] Specimen Type POC Capillary 10/01/2021 11:35 PM EST [facility] Blood Capillary blood specimen / Unknown 10/01/2021 11:28 PM EST 10/01/2021 11:35 PM EST us Hiral Infante MD LAB POINT OF CARE TE ST DOCKED DEVICE UNSOLICITED RESULTS Final Result Performing Organization Address City/[facility]/ZIP Co de Phone Number [facility] [address] [place] [address] * POCT glucose meter (10/01/2021 5:16 PM EST) [facility] Signature POCT Glucose 81 74 - 99 mg/dL 10/01/2021 5:20 PM EST [facility] Comment:Accuracy of a glucos e result obtained from a capillary whole blood specimen relies upon adequate, non-compromised capillary blood flow. If the capillary glucose result is not consistent with the patient's clinical signs and symptoms, glucose testing should be repeated with either an arterial or venous sample on the glucometer or sent to the main labortory for testing. Comment 10/01/2021 5:20 PM EST [facility] Manager Special Events ID Sari Pierre 10/01/2021 5:20 PM EST [facility] Device ID [id number] 10/01/2021 5:20 PM EST [facility] Specimen Type POC Capillary 10/01/2021 5:20 PM EST [facility] Blood Capillary blood specimen / Unknown 10/01/2021 5:16 PM EST 10/01/2021 5:20 PM EST us Hiral Infante MD LAB POINT OF CARE TE ST DOCKED DEVICE UNSOLICITED RESULTS Final Result Performing Organization Address City/[facility]/ZIP Co de Phone Number [facility] [address] [place] [address] * XR Abdomen 1 View (10/01/2021 2:55 PM EST) Anatomical Region Laterality Modality Body Digital Radiogra phy Impressions 10/01/2021 3:17 PM EST Nonobstructive bowel gas pattern. CRITICAL RESULT: ?? No. COMMUNICATION: Per this written report. Signed by Katalina Hauser on ??10/01/2021 3:17 PM Narrative 10/01/2021 3:17 PM EST Exam/Procedure: XR ABDOMEN 1 VIEW ordered by [facility], [id number] CLINICAL INDICATION: Ileus TECHNIQUE: XR ABDOMEN 1 VIEW COMPARISON: September 30, 2021 FINDINGS: Interval removal of nasogastric tube. Midline cutaneous maximilian. Gas within nondilated segments of large and small bowel. No pneumatosis or pneumoperitoneum. Pelvic phleboliths. Procedure Note Katalina Hauser MD - 10/01/2021 Exam/Procedure: XR ABDOMEN 1 VIEW ordered by [facility]IR[facility] IN[facility], [id number] CLINICAL INDICATION: Ileus TECHNIQUE: XR ABDOMEN 1 VIEW COMPARISON: September 30, 2021 FINDINGS: Interval removal of nasogastric tube. Midline cutaneous maximilian. Gaswithin nondilated segments of large and small bowel. No pneumatosis orpneumoperitoneum. Pelvic phleboliths. IMPRESSION: Nonobstructive bowel gas pattern. CRITICAL RESULT: No. COMMUNICATION: Per this written report. Signed by Katalina Hauser on 10/01/2021 3:17 PM us Hiral Infante MD IMG XR PROCEDURES Final Resul t * POCT glucose meter (10/01/2021 11:26 AM EST) POCT Glucose 86 74 - 99 mg/dL 10/01/2021 11:30 AM EST [facility] Comment:Accuracy of a glucos e result obtained from a capillary whole blood specimen relies upon adequate, non-compromised capillary blood flow. If the capillary glucose result is not consistent with the patient's clinical signs and symptoms, glucose testing should be repeated with either an arterial or venous sample on the glucometer or sent to the main labortory for testing. Comment 10/01/2021 11:30 AM EST [facility] Manager Special Events ID Kyra Schafer 10/01/2021 11:30 AM EST [facility] Device ID [id number] 10/01/2021 11:30 AM EST [facility] Specimen Type POC Capillary 10/01/2021 11:30 AM EST [facility] Blood Capillary blood specimen / Unknown 10/01/2021 11:26 AM EST 10/01/2021 11:30 AM EST Hiral Infante MD LAB POINT OF CARE TE ST DOCKED DEVICE UNSOLICITED RESULTS Final Result Performing Organization Address City/[facility] Co de Phone Number [facility] [address] [place] [address] * POCT glucose meter (10/01/2021 5:34 AM EST) POCT Glucose 85 74 - 99 mg/dL 10/01/2021 5:40 AM EST [facility] Comment:Accuracy of a glucos e result obtained from a capillary whole blood specimen relies upon adequate, non-compromised capillary blood flow. If the capillary glucose result is not consistent with the patient's clinical signs and symptoms, glucose testing should be repeated with either an arterial or venous sample on the glucometer or sent to the main labortory for testing. Comment 10/01/2021 5:40 AM EST [facility] Manager Special Events ID Sindy Stevens 10/01/19 5:40 AM EST [facility] Device ID [id number] 10/01/2021 5:40 AM EST [facility] Specimen Type POC Capillary 10/01/2021 5:40 AM EST [facility] Blood Capillary blood specimen / Unknown 10/01/2021 5:34 AM EST 10/01/2021 5:40 AM EST Hiral Infante MD LAB POINT OF CARE TE ST DOCKED DEVICE UNSOLICITED RESULTS Final Result [facility] [address] [place] [address] * Phosphorus (10/01/2021 2:54 AM EST) Phosphorus, Plasma 3.4 2.5 - 4.5 mg/dL 10/01/2021 3:35 AM EST [facility] Blood Venous blood specimen / Unknown Venipuncture / Unknown 10/01/2021 2:54 AM EST 10/01/2021 3:04 AM EST us Hiral Infante MD LAB BLOOD ORDERABLES Final Re sult [facility] [address] [place] [address] * (ABNORMAL) Basic metabolic panel (10/01/2021 2:54 AM EST) Glucose, Plasma 88 74 - 99 mg/dL 10/01/2021 3:35 AM EST [facility] BUN, Plasma 8 7 - 21 mg/dL 10/01/2021 3:35 AM EST [facility] Creatinine, Plasma 0.69 0.60 - 1.10 mg/dL 10/01/2021 3:35 AM EST [facility] BUN/Creatinine Ratio 12 10/01/2021 3:35 AM EST [facility] Sodium, Plasma 136 136 - 145 mmol/L 10/01/2021 3:35 AM EST [facility] Potassium, Plasma 3.2(L) 3.7 - 4.8 mmol/L 10/01/2021 3:35 AM EST [facility] Chloride, Plasma 96(L) 97 - 107 mmol/L 10/01/2021 3:35 AM EST [facility] CO2, Plasma 29 22 - 29 mmol/L 10/01/2021 3:35 AM EST [facility] Anion Gap 11 6 - 16 mmol/L 10/01/2021 3:35 AM EST [facility] Total Calcium, Plasma 7.9(L) 8.9 - 10.2 mg/dL 10/01/2021 3:35 AM EST [facility] eGFR >60 >60 mL/min/1.7 3m*2 10/01/2021 3:35 AM EST [facility] Comment:eGFR = estimated GFR ; eGFR units = mL/min/1.73 sq meters Chronic Kidney Disease is considered if eGFR <60 mL/min/1.73 sq meters Kidney failure is considered if eGFR is <15 mL/min/1.73 sq meters. eGFR assumes steady state plasma creatinine concentration; not applicable if renal function is rapidly changing or patient is on dialysis. eGFR, if AFR/AM >60 >60 mL/min/1.7 3m*2 10/01/2021 3:35 AM EST [facility] Comment:eGFR = estimated GFR ; eGFR units = mL/min/1.73 sq meters Chronic Kidney Disease is considered if eGFR <60 mL/min/1.73 sq meters Kidney failure is considered if eGFR is <15 mL/min/1.73 sq meters. eGFR assumes steady state plasma creatinine concentration; not applicable if renal function is rapidly changing or patient is on dialysis. Blood Venous blood specimen / Unknown Venipuncture / Unknown 10/01/2021 2:54 AM EST 10/01/2021 3:04 AM EST Hiral Infante MD LAB BLOOD ORDERABLES Final Re sult Performing Organization Address City/[facility] Co de Phone Number [facility] [address] [place] [address] * (ABNORMAL) Magnesium, Plasma (10/01/2021 2:54 AM EST) Magnesium, Plasma 1.2(L) 1.9 - 2.4 mg/dL 10/01/2021 3:35 AM EST [facility] Blood Venous blood specimen / Unknown Venipuncture / Unknown 10/01/2021 2:54 AM EST 10/01/2021 3:04 AM EST Hiral Infante MD LAB BLOOD ORDERABLES Final Re sult Performing Organization Address City/[facility] Co de Phone Number [facility] [address] [place] [address] * (ABNORMAL) CBC and Differential (10/01/2021 2:54 AM EST) WBC Count 12.31(H) 3.70 - 10.30 10*3/uL LAB HEMATOLOGY METHOD 10/01/2021 3:16 AM EST [facility] RBC Count 2.40(L) 3.90 - 5.20 10*6/uL LAB HEMATOLOGY METHOD 10/01/2021 3:16 AM EST [facility] HGB 7.8(L) 11.2 - 15.7 g/dL LAB HEMATOLOGY METHOD 10/01/2021 3:16 AM EST [facility] HCT 25.3(L) 34.0 - 45.0 % LAB HEMATOLOGY METHOD 10/01/2021 3:16 AM EST [facility] Platelet Count 583(H) 155 - 369 10*3/uL LAB HEMATOLOGY METHOD 10/01/2021 3:16 AM EST [facility] MCV 105(H) 79 - 98 fL LAB HEMATOLOGY METHOD 10/01/2021 3:16 AM EST [facility] Comment:Results inconsistent with previous lab findings. MCH 32.5(H) 26.0 - 32.0 pg LAB HEMATOLOGY METHOD 10/01/2021 3:16 AM EST [facility] MCHC 30.8 30.7 - 35.5 g/dL LAB HEMATOLOGY METHOD 10/01/2021 3:16 AM EST [facility] RDW 24.5(H) 11.5 - 14.5 % LAB HEMATOLOGY METHOD 10/01/2021 3:16 AM EST [facility] MPV 10.5 8.8 - 12.5 fL LAB HEMATOLOGY METHOD 10/01/2021 3:16 AM EST [facility] nRBC 0.0 <=0.0 per 100 WBCs LAB HEMATOLOGY METHOD 10/01/2021 3:16 AM [facility] Differential Type Automated LAB HEMATOLOGY METHOD 10/01/2021 3:16 AM EST [facility] Neutrophils % 59.0 % LAB HEMATOLOGY METHOD 10/01/2021 3:16 AM EST [facility] [facility] Lymphocytes % 23.0 % LAB HEMATOLOGY METHOD 10/01/2021 3:16 AM EST [facility] Monocytes % 8.0 % LAB HEMATOLOGY METHOD 10/01/2021 3:16 AM EST [facility] Eosinophils % 8.0 % LAB HEMATOLOGY METHOD 10/01/2021 3:16 AM EST [facility] Basophils % 1.0 % LAB HEMATOLOGY METHOD 10/01/2021 3:16 AM EST [facility] Immature Granulocytes % 1.0 % LAB HEMATOLOGY METHOD 10/01/2021 3:16 AM EST [facility] Neutrophils Absolute 7.30(H) 1.60 - 6.10 10*3/uL LAB HEMATOLOGY METHOD 10/01/2021 3:16 AM EST [facility] Lymphocytes Absolute 2.84 1.20 - 3.90 10*3/uL LAB HEMATOLOGY METHOD 10/01/2021 3:16 AM EST [facility] Monocytes Absolute 1.01(H) 0.30 - 0.90 10*3/uL LAB HEMATOLOGY METHOD 10/01/2021 3:16 AM EST [facility] Eosinophils Absolute 0.96(H) 0.00 - 0.50 10*3/uL LAB HEMATOLOGY METHOD 10/01/2021 3:16 AM EST [facility] Basophils Absolute 0.08 0.00 - 0.10 10*3/uL LAB HEMATOLOGY METHOD 10/01/2021 3:16 AM EST [facility] Immature Granulocytes Absolute 0.12(H) 0.00 - 0.06 10*3/uL LAB HEMATOLOGY METHOD 10/01/2021 3:16 AM EST [facility] Blood Venous blood specimen / Unknown Venipuncture / Unknown 10/01/2021 2:54 AM EST 10/01/2021 3:04 AM EST Narrative [facility] - 10/01/2021 3:16 AM EST Therapeutic decision making should be based on absolute values, rather than percentages. Hiral Infante MD LAB BLOOD ORDERABLES Final Re sult [facility] [address] [place] [address] * POCT glucose meter (10/01/2021 12:05 AM EST) POCT Glucose 79 74 - 99 mg/dL 10/01/2021 12:10 AM EST [facility] Comment:Accuracy of a glucos e result obtained from a capillary whole blood specimen relies upon adequate, non-compromised capillary blood flow. If the capillary glucose result is not consistent with the patient's clinical signs and symptoms, glucose testing should be repeated with either an arterial or venous sample on the glucometer or sent to the main labortory for testing. Comment 10/01/2021 12:10 AM EST [facility] Manager Special Events ID Sindy Stevens 10/01/19 12:10 AM EST [facility] Device ID [id number] 10/01/2021 12:10 AM EST [facility] Specimen Type POC Capillary 10/01/2021 12:10 AM EST [facility] Blood Capillary blood specimen / Unknown 10/01/2021 12:05 AM EST 10/01/2021 12:10 AM EST Hiral Infante MD LAB POINT OF CARE TE ST DOCKED DEVICE UNSOLICITED RESULTS Final Result Performing Organization Address [facility] Co de Phone Number [facility] [address] [place] [address] * POCT glucose meter (09/30/2021 5:28 PM EST) POCT Glucose 84 74 - 99 mg/dL 10/01/2021 12:30 AM EST [facility] Comment:Accuracy of a glucos e result obtained from a capillary whole blood specimen relies upon adequate, non-compromised capillary blood flow. If the capillary glucose result is not consistent with the patient's clinical signs and symptoms, glucose testing should be repeated with either an arterial or venous sample on the glucometer or sent to the main labortory for testing. Comment 10/01/2021 12:30 AM EST [facility] Manager Special Events ID Nash Mcfarland 10/01/2021 12:30 AM EST [facility] Device ID [id number] 10/01/2021 12:30 AM EST [facility] Specimen Type POC Capillary 10/01/2021 12:30 AM EST [facility] Blood Capillary blood specimen / Unknown 09/30/2021 5:28 PM EST 10/01/2021 12:30 AM EST us Hiral Infante MD LAB POINT OF CARE TE ST DOCKED DEVICE UNSOLICITED RESULTS Final Result Performing Organization Address [facility] de Phone Number [facility] [address] [place] [address] * XR Abdomen 1 View (09/30/2021 5:20 PM EST) Anatomical Region Laterality Modality Body Digital Radiogra phy Impressions 09/30/2021 5:30 PM EST Tip of NG tube is in the gastric antrum. Nonobstructive bowel gas pattern. CRITICAL RESULT: ?? No. COMMUNICATION: Per this written report. Signed by Andrea Kruse on ??09/30/2021 5:30 PM Narrative 09/30/2021 5:30 PM EST Exam/Procedure: XR ABDOMEN 1 VIEW ordered by HIRAL INFANTE, [id number] CLINICAL INDICATION: Ileus TECHNIQUE: XR ABDOMEN 1 VIEW COMPARISON: September 27, 2021 FINDINGS: Tip of NG tube is in the gastric antrum. Nonobstructive bowel gas pattern. Procedure Note Andrea Kruse MD - 09/30/2021 Exam/Procedure: XR ABDOMEN 1 VIEW ordered by HIRAL INFANTE, [id number] CLINICAL INDICATION: Ileus TECHNIQUE: XR ABDOMEN 1 VIEW COMPARISON: September 27, 2021 FINDINGS: Tip of NG tube is in the gastric antrum. Nonobstructive bowel gaspattern. IMPRESSION: Tip of NG tube is in the gastric antrum. Nonobstructive bowel gaspattern. CRITICAL RESULT: No. COMMUNICATION: Per this written report. Signed by Andrea Kruse on 09/30/2021 5:30 PM Hiral Infante MD IMG XR PROCEDURES Final Resul t * Phosphorus (09/30/2021 12:55 PM EST) Phosphorus, Plasma 3.5 2.5 - 4.5 mg/dL 09/30/2021 2:27 PM EST [facility] Blood Venous blood specimen / Unknown Venipuncture / Unknown 09/30/2021 12:55 PM EST 09/30/2021 1:06 PM EST Hiral Infante MD LAB BLOOD ORDERABLES Final Re sult [facility] [address] [place] [id number] * (ABNORMAL) Comprehensive metabolic panel (09/30/2021 12:55 PM EST) Glucose, Plasma 101(H) 74 - 99 mg/dL 09/30/2021 1:54 PM EST [facility] BUN, Plasma 10 7 - 21 mg/dL 09/30/2021 1:54 PM EST [facility] Creatinine, Plasma 0.74 0.60 - 1.10 mg/dL 09/30/2021 1:54 PM EST [facility] BUN/Creatinine Ratio 14 09/30/2021 1:54 PM EST [facility] Sodium, Plasma 137 136 - 145 mmol/L 09/30/2021 1:54 PM [facility] Potassium, Plasma 3.9 3.7 - 4.8 mmol/L 09/30/2021 1:54 PM [facility] Chloride, Plasma 97 97 - 107 mmol/L 09/30/2021 1:54 PM [facility] CO2, Plasma 29 22 - 29 mmol/L 09/30/2021 1:54 PM [facility] Anion Gap 11 6 - 16 mmol/L 09/30/2021 1:54 PM [facility] Total Calcium, Plasma 8.5(L) 8.9 - 10.2 mg/dL 09/30/2021 1:54 PM [facility] Total Protein 7.0 6.3 - 7.9 g/dL 09/30/2021 1:54 PM [facility] Albumin, Plasma 2.3(L) 3.5 - 5.2 g/dL 09/30/2021 1:54 PM [facility] AST, Plasma 53(H) 11 - 32 U/L 09/30/2021 1:54 PM [facility] ALT, Plasma 20 8 - 33 U/L 09/30/2021 1:54 PM [facility] Alkaline Phosphatase, Plasma 127(H) 35 - 104 U/L 09/30/2021 1:54 PM [facility] Total Bilirubin, Plasma 1.0 0.2 - 1.1 mg/dL 09/30/2021 1:54 PM [facility] eGFR >60 >60 mL/min/1.7 3m*2 09/30/2021 1:54 PM [facility] Comment:eGFR = estimated GFR ; eGFR units = mL/min/1.73 sq meters Chronic Kidney Disease is considered if eGFR <60 mL/min/1.73 sq meters Kidney failure is considered if eGFR is <15 mL/min/1.73 sq meters. eGFR assumes steady state plasma creatinine concentration; not applicable if renal function is rapidly changing or patient is on dialysis. eGFR, if AFR/AM >60 >60 mL/min/1.7 3m*2 09/30/2021 1:54 PM [facility] Comment:eGFR = estimated GFR ; [...] blood specimen / Unknown Venipuncture / Unknown 09/30/2021 12:55 PM EST 09/30/2021 1:06 PM EST Hiral Infante MD LAB BLOOD ORDERABLES Final Re sult Performing Organization Address City/[facility]/ZIP Co de Phone Number [facility] [address] [place] [address] * (ABNORMAL) Magnesium (09/30/2021 12:55 PM EST) Magnesium, Plasma 1.7(L) 1.9 - 2.4 mg/dL 09/30/2021 1:54 PM EST [facility] Blood Venous blood specimen / Unknown Venipuncture / Unknown 09/30/2021 12:55 PM EST 09/30/2021 1:06 PM EST Hiral Infante MD LAB BLOOD ORDERABLES Final Re sult Performing Organization Address [facility] de Phone Number [facility] [address] [place] [address] * POCT glucose meter (09/30/2021 12:13 PM EST) POCT Glucose 97 74 - 99 mg/dL 09/30/2021 12:15 PM EST [facility] Comment:Accuracy of a glucos e result obtained from a capillary whole blood specimen relies upon adequate, non-compromised capillary blood flow. If the capillary glucose result is not consistent with the patient's clinical signs and symptoms, glucose testing should be repeated with either an arterial or venous sample on the glucometer or sent to the main labortory for testing. Comment 09/30/2021 12:15 PM EST [facility] Manager Special Events ID Nash Mcfarland 09/30/2021 12:15 PM EST [facility] Device ID [id number] 09/30/2021 12:15 PM EST [facility] Specimen Type POC Capillary 09/30/2021 12:15 PM EST [facility] Blood Capillary blood specimen / Unknown 09/30/2021 12:13 PM EST 09/30/2021 12:15 PM EST us Hiral Infante MD LAB POINT OF CARE TE ST DOCKED DEVICE UNSOLICITED RESULTS Final Result Performing Organization Address [facility] de Phone Number [facility] [address] [place] [address] * POCT glucose meter (09/30/2021 8:40 AM EST) POCT Glucose 76 74 - 99 mg/dL 09/30/2021 8:45 AM EST [facility] Comment:Accuracy of a glucos e result obtained from a capillary whole blood specimen relies upon adequate, non-compromised capillary blood flow. If the capillary glucose result is not consistent with the patient's clinical signs and symptoms, glucose testing should be repeated with either an arterial or venous sample on the glucometer or sent to the main labortory for testing. Comment 09/30/2021 8:45 AM EST [facility] Manager Special Events ID Nash Mcfarland 09/30/2021 8:45 AM EST [facility] Device ID [id number] 09/30/2021 8:45 AM EST [facility] Specimen Type POC Capillary 09/30/2021 8:45 AM EST [facility] Blood Capillary blood specimen / Unknown 09/30/2021 8:40 AM EST 09/30/2021 8:45 AM EST us Hiral Infante MD LAB POINT OF CARE TE ST DOCKED DEVICE UNSOLICITED RESULTS Final Result Performing Organization Address City/[facility] Co de Phone Number [facility] [address] [place] [address] * POCT glucose meter (09/30/2021 5:57 AM EST) POCT Glucose 75 74 - 99 mg/dL 10/01/2021 10:10 AM EST [facility] Comment:Accuracy of a glucos e result obtained from a capillary whole blood specimen relies upon adequate, non-compromised capillary blood flow. If the capillary glucose result is not consistent with the patient's clinical signs and symptoms, glucose testing should be repeated with either an arterial or venous sample on the glucometer or sent to the main labortory for testing. Comment 10/01/2021 10:10 AM EST [facility] Manager Special Events ID Aubrey Hunt 10/01/2021 10:10 AM EST [facility] Device ID [id number] 10/01/2021 10:10 AM EST [facility] Specimen Type POC Capillary 10/01/2021 10:10 AM EST [facility] Blood Capillary blood specimen / Unknown 09/30/2021 5:57 AM EST 10/01/2021 10:10 AM EST us Hiral Infante MD LAB POINT OF CARE TE ST DOCKED DEVICE UNSOLICITED RESULTS Final Result Performing Organization Address City/[facility]/ZIP Co de Phone Number [facility] [address] [place] [address] * POCT glucose meter (09/29/2021 11:23 PM EST) POCT Glucose 98 74 - 99 mg/dL 09/29/2021 11:25 PM EST [facility] Comment:Accuracy of a glucos e result obtained from a capillary whole blood specimen relies upon adequate, non-compromised capillary blood flow. If the capillary glucose result is not consistent with the patient's clinical signs and symptoms, glucose testing should be repeated with either an arterial or venous sample on the glucometer or sent to the main labortory for testing. Comment 09/29/2021 11:25 PM EST [facility] Manager Special Events ID Aubrey Hunt 09/29/2021 11:25 PM EST [facility] Device ID [id number] 09/29/2021 11:25 PM EST [facility] Specimen Type POC Capillary 09/29/2021 11:25 PM EST [facility] Blood Capillary blood specimen / Unknown 09/29/2021 11:23 PM EST 09/29/2021 11:25 PM EST us Justine Momin MD LAB POINT OF CARE TE ST DOCKED DEVICE UNSOLICITED RESULTS Final Result Performing Organization Address City/[facility]/ZIP Co de Phone Number [facility] [address] [place] [address] * POCT glucose meter (09/29/2021 5:52 PM EST) [facility] POCT Glucose 84 74 - 99 mg/dL 09/29/2021 5:55 PM EST [facility] Comment:Accuracy of a glucos e result obtained from a capillary whole blood specimen relies upon adequate, non-compromised capillary blood flow. If the capillary glucose result is not consistent with the patient's clinical signs and symptoms, glucose testing should be repeated with either an arterial or venous sample on the glucometer or sent to the main labortory for testing. Comment 09/29/2021 5:55 PM EST [facility] Manager Special Events ID Ritu Hauser Chela 09/29/19 5:55 PM EST [facility] Device ID [id number] 09/29/2021 5:55 PM EST [facility] Specimen Type POC Capillary 09/29/2021 5:55 PM EST [facility] Blood Capillary blood specimen / Unknown 09/29/2021 5:52 PM EST 09/29/2021 5:55 PM EST Justine Momin MD LAB POINT OF CARE TE ST DOCKED DEVICE UNSOLICITED RESULTS Final Result [facility] [address] [place] [address] * (ABNORMAL) POCT glucose meter (09/29/2021 11:26 AM EST) [facility] POCT Glucose 138(H) 74 - 99 mg/dL 09/29/2021 11:30 AM EST [facility] Comment:Accuracy of a glucos e result obtained from a capillary whole blood specimen relies upon adequate, non-compromised capillary blood flow. If the capillary glucose result is not consistent with the patient's clinical signs and symptoms, glucose testing should be repeated with either an arterial or venous sample on the glucometer or sent to the main labortory for testing. Comment 09/29/2021 11:30 AM EST [facility] Manager Special Events ID Bryn Andrdaechela Lundberg 09/29/2021 11:30 AM EST [facility] Device ID [id number] 09/29/2021 11:30 AM EST [facility] Specimen Type POC Capillary 09/29/2021 11:30 AM EST [facility] Blood Capillary blood specimen / Unknown 09/29/2021 11:26 AM EST 09/29/2021 11:30 AM EST us Justine Momin MD LAB POINT OF CARE TE ST DOCKED DEVICE UNSOLICITED RESULTS Final Result Performing Organization Address [facility] de Phone Number [facility] [address] [place] [address] * POCT glucose meter (09/29/2021 6:37 AM EST) POCT Glucose 82 74 - 99 mg/dL 09/29/2021 6:40 AM EST [facility] Comment:Accuracy of a glucos e result obtained from a capillary whole blood specimen relies upon adequate, non-compromised capillary blood flow. If the capillary glucose result is not consistent with the patient's clinical signs and symptoms, glucose testing should be repeated with either an arterial or venous sample on the glucometer or sent to the main labortory for testing. Comment 09/29/2021 6:40 AM EST [facility] Manager Special Events ID Amanda Munoz 09/29/2021 6:40 AM EST [facility] Device ID [id number] 09/29/2021 6:40 AM EST [facility] Specimen Type POC Capillary 09/29/2021 6:40 AM EST [facility] Blood Capillary blood specimen / Unknown 09/29/2021 6:37 AM EST 09/29/2021 6:40 AM EST us Jim Calzada MD LAB POINT OF CARE TE ST DOCKED DEVICE UNSOLICITED RESULTS Final Result Performing Organization Address City/[facility] de Phone Number [facility] [address] [place] [address] * POCT glucose meter (09/29/2021 5:18 AM EST) POCT Glucose 86 74 - 99 mg/dL 09/29/2021 5:20 AM EST [facility] Comment:Accuracy of a glucos e result obtained from a capillary whole blood specimen relies upon adequate, non-compromised capillary blood flow. If the capillary glucose result is not consistent with the patient's clinical signs and symptoms, glucose testing should be repeated with either an arterial or venous sample on the glucometer or sent to the main labortory for testing. Comment 09/29/2021 5:20 AM EST [facility] Manager Special Events ID Amanda Munoz 09/29/2021 5:20 AM EST [facility] Device ID [id number] 09/29/2021 5:20 AM EST [facility] Specimen Type POC Capillary 09/29/2021 5:20 AM EST [facility] Blood Capillary blood specimen / Unknown 09/29/2021 5:18 AM EST 09/29/2021 5:20 AM EST us Jim Calzada MD LAB POINT OF CARE TE ST DOCKED DEVICE UNSOLICITED RESULTS Final Result Performing Organization Address [facility] Co de Phone Number [facility] [address] [place] [address] * POCT glucose meter (09/29/2021 3:44 AM EST) POCT Glucose 81 74 - 99 mg/dL 09/29/2021 3:45 AM EST [facility] Comment:Accuracy of a glucos e result obtained from a capillary whole blood specimen relies upon adequate, non-compromised capillary blood flow. If the capillary glucose result is not consistent with the patient's clinical signs and symptoms, glucose testing should be repeated with either an arterial or venous sample on the glucometer or sent to the main labortory for testing. Comment 09/29/2021 3:45 AM EST [facility] Manager Special Events ID Amanda Munoz 09/29/2021 3:45 AM EST [facility] Device ID [id number] 09/29/2021 3:45 AM EST [facility] Specimen Type POC Capillary 09/29/2021 3:45 AM EST [facility] Blood Capillary blood specimen / Unknown 09/29/2021 3:44 AM EST 09/29/2021 3:45 AM EST us Jim Calzada MD LAB POINT OF CARE TE ST DOCKED DEVICE UNSOLICITED RESULTS Final Result Performing Organization Address City/[facility]/ZIP Co de Phone Number [facility] [address] [place] [address] * Phosphorus, Plasma (09/29/2021 1:15 AM EST) Phosphorus, Plasma 3.0 2.5 - 4.5 mg/dL 09/29/2021 1:59 AM EST [facility] Blood Venous blood specimen / Unknown Venipuncture / Unknown 09/29/2021 1:15 AM EST 09/29/2021 1:26 AM EST Blanco Garcia APRN LAB BLOOD ORDERABLES Final Result Performing Organization Address City/[facility] Co de Phone Number [facility] [address] [place] [address] * (ABNORMAL) Magnesium, Plasma (09/29/2021 1:15 AM EST) Magnesium, Plasma 1.6(L) 1.9 - 2.4 mg/dL 09/29/2021 1:59 AM EST [facility] Blood Venous blood specimen / Unknown Venipuncture / Unknown 09/29/2021 1:15 AM EST 09/29/2021 1:26 AM EST Blanco Garcia APRN LAB BLOOD ORDERABLES Final Result Performing Organization Address [facility] de Phone Number [facility] [address] [place] [address] * Ionized calcium, whole blood (09/29/2021 1:15 AM EST) Ionized Calcium, Whole Blood 4.7 4.6 - 5.1 mg/dL LAB HEMATOLOGY METHOD 09/29/2021 1:22 AM EST [facility] Blood Venous blood specimen / Unknown Venipuncture / Unknown 09/29/2021 1:15 AM EST 09/29/2021 1:21 AM EST Blanco Garcia APRN LAB BLOOD ORDERABLES Final Result Performing Organization Address City/[facility] de Phone Number [facility] [address] [place] [address] * (ABNORMAL) Basic Metabolic Panel, Plasma (09/29/2021 1:15 AM EST) Glucose, Plasma 96 74 - 99 mg/dL 09/29/2021 1:59 AM EST [facility] BUN, Plasma 11 7 - 21 mg/dL 09/29/2021 1:59 AM [facility] Creatinine, Plasma 0.71 0.60 - 1.10 mg/dL 09/29/2021 1:59 AM [facility] BUN/Creatinine Ratio 15 09/29/2021 1:59 AM [facility] Sodium, Plasma 146(H) 136 - 145 mmol/L 09/29/2021 1:59 AM [facility] Potassium, Plasma 3.0(L) 3.7 - 4.8 mmol/L 09/29/2021 1:59 AM [facility] Chloride, Plasma 107 97 - 107 mmol/L 09/29/2021 1:59 AM [facility] CO2, Plasma 32(H) 22 - 29 mmol/L 09/29/2021 1:59 AM [facility] Anion Gap 7 6 - 16 mmol/L 09/29/2021 1:59 AM [facility] Total Calcium, Plasma 8.0(L) 8.9 - 10.2 mg/dL 09/29/2021 1:59 AM [facility] eGFR >60 >60 mL/min/1.7 3m*2 09/29/2021 1:59 AM [facility] Comment:eGFR = estimated GFR ; eGFR units = mL/min/1.73 sq meters Chronic Kidney Disease is considered if eGFR <60 mL/min/1.73 sq meters Kidney failure is considered if eGFR is <15 mL/min/1.73 sq meters. eGFR assumes steady state plasma creatinine concentration; not applicable if renal function is rapidly changing or patient is on dialysis. eGFR, if AFR/AM >60 >60 mL/min/1.7 3m*2 09/29/2021 1:59 AM [facility] Comment:eGFR = estimated GFR ; [...] blood specimen / Unknown Venipuncture / Unknown 09/29/2021 1:15 AM EST 09/29/2021 1:26 AM EST Blanco Garcia APRN LAB BLOOD ORDERABLES Final Result Performing Organization Address City/State/[facility] Co de Phone Number [facility] [address] [place] [address] * (ABNORMAL) CBC W/O Differential (09/29/2021 1:15 AM EST) WBC Count 14.95(H) 3.70 - 10.30 10*3/uL LAB HEMATOLOGY METHOD 09/29/2021 1:38 AM EST [facility] RBC Count 2.34(L) 3.90 - 5.20 10*6/uL LAB HEMATOLOGY METHOD 09/29/2021 1:38 AM EST [facility] HGB 7.7(L) 11.2 - 15.7 g/dL LAB HEMATOLOGY METHOD 09/29/2021 1:38 AM EST [facility] HCT 25.8(L) 34.0 - 45.0 % LAB HEMATOLOGY METHOD 09/29/2021 1:38 AM EST [facility] Platelet Count 573(H) 155 - 369 10*3/uL LAB HEMATOLOGY METHOD 09/29/2021 1:38 AM EST [facility] MCV 110(H) 79 - 98 fL LAB HEMATOLOGY METHOD 09/29/2021 1:38 AM EST [facility] MCH 32.9(H) 26.0 - 32.0 pg LAB HEMATOLOGY METHOD 09/29/2021 1:38 AM EST [facility] MCHC 29.8(L) 30.7 - 35.5 g/dL LAB HEMATOLOGY METHOD 09/29/2021 1:38 AM EST [facility] RDW 25.9(H) 11.5 - 14.5 % LAB HEMATOLOGY METHOD 09/29/2021 1:38 AM EST [facility] MPV 10.8 8.8 - 12.5 fL LAB HEMATOLOGY METHOD 09/29/2021 1:38 AM EST [facility] nRBC 0.1(H) <=0.0 per 100 WBCs LAB HEMATOLOGY METHOD 09/29/2021 1:38 AM EST [facility] Blood Venous blood specimen / Unknown Venipuncture / Unknown 09/29/2021 1:15 AM EST 09/29/2021 1:27 AM EST Blanco Garcia APRN LAB BLOOD ORDERABLES Final Result Performing Organization Address City/[facility]/ZIP Co de Phone Number [facility] [address] [place] [address] * (ABNORMAL) POCT glucose meter (09/29/2021 12:57 AM EST) POCT Glucose 104(H) 74 - 99 mg/dL 09/29/2021 1:00 AM EST [facility] Comment:Accuracy of a glucos e result obtained from a capillary whole blood specimen relies upon adequate, non-compromised capillary blood flow. If the capillary glucose result is not consistent with the patient's clinical signs and symptoms, glucose testing should be repeated with either an arterial or venous sample on the glucometer or sent to the main labortory for testing. Comment 09/29/2021 1:00 AM EST [facility] Manager Special Events ID Queen-RejiAmanda 09/29/2021 1:00 AM EST [facility] Device ID [id number] 09/29/2021 1:00 AM EST [facility] Specimen Type POC Capillary 09/29/2021 1:00 AM EST [facility] Blood Capillary blood specimen / Unknown 09/29/2021 12:57 AM EST 09/29/2021 1:00 AM EST us Jim Calzada MD LAB POINT OF CARE TE ST DOCKED DEVICE UNSOLICITED RESULTS Final Result Performing Organization Address City/[facility] Co de Phone Number [facility] [address] [place] [address] * (ABNORMAL) POCT glucose meter (09/29/2021 12:29 AM EST) POCT Glucose 70(L) 74 - 99 mg/dL 09/29/2021 12:30 AM EST [facility] Comment:Accuracy of a glucos e result obtained from a capillary whole blood specimen relies upon adequate, non-compromised capillary blood flow. If the capillary glucose result is not consistent with the patient's clinical signs and symptoms, glucose testing should be repeated with either an arterial or venous sample on the glucometer or sent to the main labortory for testing. Comment 09/29/2021 12:30 AM EST [facility] Manager Special Events ID Amanda Munoz 09/29/2021 12:30 AM EST [facility] Device ID [id number] 09/29/2021 12:30 AM EST [facility] Specimen Type POC Capillary 09/29/2021 12:30 AM EST [facility] Blood Capillary blood specimen / Unknown 09/29/2021 12:29 AM EST 09/29/2021 12:30 AM EST us Jim Calzada MD LAB POINT OF CARE TE ST DOCKED DEVICE UNSOLICITED RESULTS Final Result Performing Organization Address City/[facility] Co de Phone Number [facility] [address] [place] [address] * POCT glucose meter (09/28/2021 11:10 PM EST) POCT Glucose 77 74 - 99 mg/dL 09/28/2021 11:15 PM EST [facility] Comment:Accuracy of a glucos e result obtained from a capillary whole blood specimen relies upon adequate, non-compromised capillary blood flow. If the capillary glucose result is not consistent with the patient's clinical signs and symptoms, glucose testing should be repeated with either an arterial or venous sample on the glucometer or sent to the main labortory for testing. Comment 09/28/2021 11:15 PM EST [facility] Manager Special Events ID Amanda Munoz 09/28/2021 11:15 PM EST [facility] Device ID [id number] 09/28/2021 11:15 PM EST [facility] Specimen Type POC Capillary 09/28/2021 11:15 PM EST [facility] Blood Capillary blood specimen / Unknown 09/28/2021 11:10 PM EST 09/28/2021 11:15 PM EST us Jim Calzada MD LAB POINT OF CARE TE ST DOCKED DEVICE UNSOLICITED RESULTS Final Result Performing Organization Address City/[facility]/ZIP Co de Phone Number [facility] [address] [place] [address] * POCT glucose meter (09/28/2021 5:31 PM EST) POCT Glucose 87 74 - 99 mg/dL 09/28/2021 5:35 PM EST [facility] Comment:Accuracy of a glucos e result obtained from a capillary whole blood specimen relies upon adequate, non-compromised capillary blood flow. If the capillary glucose result is not consistent with the patient's clinical signs and symptoms, glucose testing should be repeated with either an arterial or venous sample on the glucometer or sent to the main labortory for testing. Comment 09/28/2021 5:35 PM EST [facility] Manager Special Events ID Keaton Martinez 022 5:35 PM EST [facility] Device ID [id number] 09/28/2021 5:35 PM EST [facility] Specimen Type POC Capillary 09/28/2021 5:35 PM EST [facility] Blood Capillary blood specimen / Unknown 09/28/2021 5:31 PM EST 09/28/2021 5:35 PM EST Jim Calzada MD LAB POINT OF CARE TE ST DOCKED DEVICE UNSOLICITED RESULTS Final Result Performing Organization Address City/State/[facility] Co de Phone Number [facility] [address] [place] [address] * (ABNORMAL) POCT glucose meter (09/28/2021 11:14 AM EST) [facility] Signature POCT Glucose 100(H) 74 - 99 mg/dL 09/28/2021 11:20 AM EST [facility] Comment:Accuracy of a glucos e result obtained from a capillary whole blood specimen relies upon adequate, non-compromised capillary blood flow. If the capillary glucose result is not consistent with the patient's clinical signs and symptoms, glucose testing should be repeated with either an arterial or venous sample on the glucometer or sent to the main labortory for testing. Comment 09/28/2021 11:20 AM EST [facility] Manager Special Events ID Keaton Martinez 022 11:20 AM EST [facility] Device ID [id number] 09/28/2021 11:20 AM EST [facility] Specimen Type POC Capillary 09/28/2021 11:20 AM EST [facility] Blood Capillary blood specimen / Unknown 09/28/2021 11:14 AM EST 09/28/2021 11:20 AM EST us Jim Calzada MD LAB POINT OF CARE TE ST DOCKED DEVICE UNSOLICITED RESULTS Final Result [facility] [address] [place] [address] * (ABNORMAL) Beta Glucan (Fungitel) (09/28/2021 11:12 AM EST) Beta Glucan (Fungitell) 259(H) <80 pg/mL 10/01/2021 5:29 PM EST [facility] ([facility]) Comment: Interpretation: The Fungitell assay does not detect certain fungal species such as the genus Cryptococcus (Araseli et al. 1991) which produces very low levels of (1-3)-Cpep-T-Bylvlr. The assay also does not detect the Zygomycetes such as Absidia, Mucor and Rhizopus (Mounika et al. 1994) which are not known to produce (1-3)-Toau-E-Udcafe. In addition, the yeast phase of Blastomyces dermatitidis produces little (1-3)-Lqav-R-Tigllw and may not be detected by the assay (Suleiman et al. 2007). Reference Range: Less than 60 pg/mL. Glucan values of less than 60 pg/mL are interpreted as negative. Glucan values of 60 to 79 pg/mL are interpreted as indeterminate, and suggest a possible fungal infection. Additional sampling and testing of sera is required to interpret the results. Glucan values of greater than or equal to 80 pg/mL are interpreted as positive. Due to the potential for environmental contamination when transferred to pour-off tubes, which can lead to false positive results, interpret positive results from samples provided in pour-off tubes with caution. ??Results should be used in conjunction with clinical findings, and should not form the sole basis for a diagnosis or treatment decision. The Fungitell test is approved or cleared for in vitro diagnostic use by the U.[place] Food and Drug Administration. Modifications to the approved package insert have been made and the performance characteristics for these modifications were determined by [facility]. If sample result is greater than 500 pg/mL, physician may order a titer of the sample. Please contact [facility] if you would like to order a retest of this sample to obtain an actual value. Samples are held for 1 week after initial testing date. Testing Performed at: [facility] [address] [place] [address] [employer] Machine: Addy Bennett Ph.D., CHRISTINE (ABB) CLIA#: [id number] Phone: Blood Venous blood specimen / Unknown Venipuncture / Unknown 09/28/2021 11:12 AM EST 09/28/2021 11:30 AM EST Narrative [facility] ([facility]) - 10/01/2021 5:29 PM EST Release to patient in [facility]->Immediate us Blanco Garcia APRN LAB BLOOD ORDERABLES Final Result [facility] ([facility]) * Asymptomatic - Repeat iCa leve in 12 hours (09/28/2021 11:12 AM EST) Ionized Calcium, Serum 4.8 4.6 - 5.3 mg/dL LAB HEMATOLOGY METHOD 09/28/2021 12:16 PM EST [facility] Blood Venous blood specimen / Unknown Venipuncture / Unknown 09/28/2021 11:12 AM EST 09/28/2021 11:30 AM EST us Jim Calzada MD LAB BLOOD ORDERABLES Final Resu lt [facility] [address] [place] [address] * POCT glucose meter (09/28/2021 6:35 AM EST) POCT Glucose 82 74 - 99 mg/dL 09/28/2021 6:40 AM EST [facility] Comment:Accuracy of a glucos e result obtained from a capillary whole blood specimen relies upon adequate, non-compromised capillary blood flow. If the capillary glucose result is not consistent with the patient's clinical signs and symptoms, glucose testing should be repeated with either an arterial or venous sample on the glucometer or sent to the main labortory for testing. Comment 09/28/2021 6:40 AM EST [facility] Manager Special Events ID Megha Quiñonez 2 6:40 AM EST [facility] Device ID [id number] 09/28/2021 6:40 AM EST [facility] Specimen Type POC Capillary 09/28/2021 6:40 AM EST [facility] Blood Capillary blood specimen / Unknown 09/28/2021 6:35 AM EST 09/28/2021 6:40 AM EST us Jim Calzada MD LAB POINT OF CARE TE ST DOCKED DEVICE UNSOLICITED RESULTS Final Result Performing Organization Address City/[facility] Co de Phone Number [facility] [address] [place] [address] * POCT glucose meter (09/27/2021 11:44 PM EST) [facility] POCT Glucose 80 74 - 99 mg/dL 09/27/2021 11:50 PM EST [facility] Comment:Accuracy of a glucos e result obtained from a capillary whole blood specimen relies upon adequate, non-compromised capillary blood flow. If the capillary glucose result is not consistent with the patient's clinical signs and symptoms, glucose testing should be repeated with either an arterial or venous sample on the glucometer or sent to the main labortory for testing. Comment 09/27/2021 11:50 PM EST [facility] Manager Special Events ID Megha Quiñonez 2 11:50 PM EST [facility] Device ID [id number] 09/27/2021 11:50 PM EST [facility] Specimen Type POC Capillary 09/27/2021 11:50 PM EST [facility] Blood Capillary blood specimen / Unknown 09/27/2021 11:44 PM EST 09/27/2021 11:50 PM EST us Jim Calzada MD LAB POINT OF CARE TE ST DOCKED DEVICE UNSOLICITED RESULTS Final Result [facility] [address] [place] [address] * Phosphorus, Plasma (09/27/2021 11:42 PM EST) [facility] Phosphorus, Plasma 3.5 2.5 - 4.5 mg/dL 09/28/2021 12:29 AM EST [facility] Blood Venous blood specimen / Unknown Venipuncture / Unknown 09/27/2021 11:42 PM EST 09/27/2021 11:56 PM EST Blanco Garcia APRN LAB BLOOD ORDERABLES Final Result Performing Organization Address City/[facility]/ZIP Co de Phone Number [facility] [address] [place] [address] * Magnesium, Plasma (09/27/2021 11:42 PM EST) Magnesium, Plasma 1.9 1.9 - 2.4 mg/dL 09/28/2021 12:29 AM EST [facility] Blood Venous blood specimen / Unknown Venipuncture / Unknown 09/27/2021 11:42 PM EST 09/27/2021 11:56 PM EST Blanco Garcia APRN LAB BLOOD ORDERABLES Final Result Performing Organization Address City/[facility] Co de Phone Number [facility] [address] [place] [phone] * Ionized calcium, whole blood (09/27/2021 11:42 PM EST) [facility] Ionized Calcium, Whole Blood 4.6 4.6 - 5.1 mg/dL LAB HEMATOLOGY METHOD 09/27/2021 11:56 PM EST [facility] Blood Venous blood specimen / Unknown Venipuncture / Unknown 09/27/2021 11:42 PM EST 09/27/2021 11:55 PM EST Blanco Garcia APRN LAB BLOOD ORDERABLES Final Result Performing Organization Address City/[facility] Co de Phone Number [facility] [address] [place] [address] * (ABNORMAL) Basic Metabolic Panel, Plasma (09/27/2021 11:42 PM EST) Glucose, Plasma 93 74 - 99 mg/dL 09/28/2021 12:29 AM EST [facility] BUN, Plasma 13 7 - 21 mg/dL 09/28/2021 12:29 AM EST [facility] Creatinine, Plasma 0.86 0.60 - 1.10 mg/dL 09/28/2021 12:29 AM [facility] BUN/Creatinine Ratio 15 09/28/2021 12:29 AM [facility] Sodium, Plasma 149(H) 136 - 145 mmol/L 09/28/2021 12:29 AM [facility] Potassium, Plasma 3.0(L) 3.7 - 4.8 mmol/L 09/28/2021 12:29 AM [facility] Chloride, Plasma 105 97 - 107 mmol/L 09/28/2021 12:29 AM [facility] CO2, Plasma 35(H) 22 - 29 mmol/L 09/28/2021 12:29 AM [facility] Anion Gap 9 6 - 16 mmol/L 09/28/2021 12:29 AM [facility] Total Calcium, Plasma 8.5(L) 8.9 - 10.2 mg/dL 09/28/2021 12:29 AM [facility] eGFR >60 >60 mL/min/1.7 3m*2 09/28/2021 12:29 AM [facility] Comment:eGFR = estimated GFR ; eGFR units = mL/min/1.73 sq meters Chronic Kidney Disease is considered if eGFR <60 mL/min/1.73 sq meters Kidney failure is considered if eGFR is <15 mL/min/1.73 sq meters. eGFR assumes steady state plasma creatinine concentration; not applicable if renal function is rapidly changing or patient is on dialysis. eGFR, if AFR/AM >60 >60 mL/min/1.7 3m*2 09/28/2021 12:29 AM [facility] Comment:eGFR = estimated GFR ; [...] blood specimen / Unknown Venipuncture / Unknown 09/27/2021 11:42 PM EST 09/27/2021 11:56 PM EST Blanco Garcia APRN LAB BLOOD ORDERABLES Final Result Performing Organization Address City/State/[facility] Co de Phone Number [facility] [address] [place] [address] * (ABNORMAL) CBC W/O Differential (09/27/2021 11:42 PM EST) WBC Count 18.54(H) 3.70 - 10.30 10*3/uL LAB HEMATOLOGY METHOD 09/28/2021 12:14 AM EST [facility] RBC Count 2.41(L) 3.90 - 5.20 10*6/uL LAB HEMATOLOGY METHOD 09/28/2021 12:14 AM EST [facility] HGB 7.9(L) 11.2 - 15.7 g/dL LAB HEMATOLOGY METHOD 09/28/2021 12:14 AM EST [facility] HCT 25.8(L) 34.0 - 45.0 % LAB HEMATOLOGY METHOD 09/28/2021 12:14 AM EST [facility] Platelet Count 640(H) 155 - 369 10*3/uL LAB HEMATOLOGY METHOD 09/28/2021 12:14 AM EST [facility] MCV 107(H) 79 - 98 fL LAB HEMATOLOGY METHOD 09/28/2021 12:14 AM EST [facility] Comment:Results inconsistent with previous lab findings. MCH 32.8(H) 26.0 - 32.0 pg LAB HEMATOLOGY METHOD 09/28/2021 12:14 AM EST [facility] MCHC 30.6(L) 30.7 - 35.5 g/dL LAB HEMATOLOGY METHOD 09/28/2021 12:14 AM EST [facility] RDW 26.6(H) 11.5 - 14.5 % LAB HEMATOLOGY METHOD 09/28/2021 12:14 AM EST [facility] MPV 11.0 8.8 - 12.5 fL LAB HEMATOLOGY METHOD 09/28/2021 12:14 AM EST [facility] nRBC 0.1(H) <=0.0 per 100 WBCs LAB HEMATOLOGY METHOD 09/28/2021 12:14 AM EST [facility] Blood Venous blood specimen / Unknown Venipuncture / Unknown 09/27/2021 11:42 PM EST 09/27/2021 11:55 PM EST Blanco Garcia APRN LAB BLOOD ORDERABLES Final Result [facility] [address] [place] [address] * (ABNORMAL) Lipase (09/27/2021 6:19 PM EST) [facility] Lipase, Plasma 139(H) 19 - 63 U/L 09/27/2021 6:53 PM EST [facility] Blood Venous blood specimen / Unknown Venipuncture / Unknown 09/27/2021 6:19 PM EST 09/27/2021 6:27 PM EST Blanco Garcia APRN LAB BLOOD ORDERABLES Final Result Performing Organization Address [facility]/ZIP Co de Phone Number [facility] [address] [place] [address] * POCT glucose meter (09/27/2021 5:44 PM EST) [facility] POCT Glucose 98 74 - 99 mg/dL 09/27/2021 5:50 PM EST [facility] Comment:Accuracy of a glucos e result obtained from a capillary whole blood specimen relies upon adequate, non-compromised capillary blood flow. If the capillary glucose result is not consistent with the patient's clinical signs and symptoms, glucose testing should be repeated with either an arterial or venous sample on the glucometer or sent to the main labortory for testing. Comment 09/27/2021 5:50 PM EST [facility] Manager Special Events ID Ameh, Erick 09/27/2021 5:50 PM EST [facility] Device ID [id number] 09/27/2021 5:50 PM EST [facility] Specimen Type POC Capillary 09/27/2021 5:50 PM EST [facility] Blood Capillary blood specimen / Unknown 09/27/2021 5:44 PM EST 09/27/2021 5:50 PM EST Jim Calzada MD LAB POINT OF CARE TE ST DOCKED DEVICE UNSOLICITED RESULTS Final Result Performing Organization Address City/[facility]/ZIP Co de Phone Number [facility] [address] [place] [address] * POCT glucose meter (09/27/2021 12:37 PM EST) [facility] POCT Glucose 84 74 - 99 mg/dL 09/27/2021 12:40 PM EST [facility] Comment:Accuracy of a glucos e result obtained from a capillary whole blood specimen relies upon adequate, non-compromised capillary blood flow. If the capillary glucose result is not consistent with the patient's clinical signs and symptoms, glucose testing should be repeated with either an arterial or venous sample on the glucometer or sent to the main labortory for testing. Comment 09/27/2021 12:40 PM EST [facility] Manager Special Events ID Ameh, Erick 09/27/2021 12:40 PM EST [facility] Device ID [id number] 09/27/2021 12:40 PM EST [facility] Specimen Type POC Capillary 09/27/2021 12:40 PM EST [facility] Blood Capillary blood specimen / Unknown 09/27/2021 12:37 PM EST 09/27/2021 12:40 PM EST Jim Calzada MD LAB POINT OF CARE TE ST DOCKED DEVICE UNSOLICITED RESULTS Final Result Performing Organization Address City/State/[facility] Co de Phone Number [facility] [address] [place] [address] * CT Abdomen Pelvis w IV Contrast (09/27/2021 10:22 AM EST) Anatomical Region Laterality Modality Abdomen, Pelvis Computed Tomogra phy Impressions 09/27/2021 10:46 AM EST There is a small to moderate amount of ascites. No discrete fluid collections to suggest abscess.. No evidence of bowel obstruction. Hematoma along the laparotomy incision, measuring roughly 4 x 3 cm in the axial plane Patchy bibasal lung opacities CRITICAL RESULT: ?? No. COMMUNICATION: Per this written report. Signed by Steve Hdz on ??09/27/2021 10:46 AM Narrative 09/27/2021 10:46 AM EST Exam/Procedure: CT ABDOMEN PELVIS W IV CONTRAST ordered by BLANCO GARCIA, [id number] CLINICAL INDICATION: Abdominal abscess/infection suspected TECHNIQUE: Multiple axial CT images were obtained from lung bases through pubic symphysis following administration of IV contrast, Omnipaque 300, 100 mL. Delayed images of abdomen and kidneys also obtained. Reformatted images in the coronal and sagittal planes were generated from the axial data set to facilitate diagnostic accuracy. Total DLP (Dose-Length Product): 1422.66 mGy.cm. Please note: The reported value represents the total of one or more individual components during the CT acquisition on this date and at this time, and as such, the same value may appear in more than one CT report depending on the interpreting/reporting physicians. COMPARISON: CT from September 23, 2021 FINDINGS: Lower Chest: There are [id number] bilateral pleural effusions. There is left lower lobe atelectasis. Patchy bibasal opacities are present. Solid Abdominal Organs: Liver demonstrates fatty change. No discrete suspicious focal liver lesions. Decompressed somewhat edematous gallbladder. Unremarkable pancreas and spleen. Unremarkable adrenal glands. No hydronephrosis. Small bilateral renal cysts are present. Punctate calculi are present bilaterally. GI Tract/Mesentery/Peritoneum: Large and small bowel appear normal in caliber. No pneumatosis. Mesenteric edema is present.. Pelvic Viscera: Decompressed, catheterized urinary bladder. No pelvic mass. Lymph Nodes/Vasculature: Aortoiliac vasculature is normal in caliber. No lymphadenopathy Free Fluid:There is a small to moderate amount of ascites. Musculoskeletal and Body Wall:No clearly aggressive bone lesions. Small hematoma along the laparotomy incision Procedure Note Steve Hdz MD - 09/27/2021 Exam/Procedure: CT ABDOMEN PELVIS W IV CONTRAST ordered by BLANCO HU, [id number] CLINICAL INDICATION: Abdominal abscess/infection suspected TECHNIQUE: Multiple axial CT images were obtained from lung bases through pubicsymphysis following administration of IV contrast, Omnipaque 300, 100 mL.Delayed images of abdomen and kidneys also obtained. Reformatted images inthe coronal and sagittal planes were generated from the axial data set tofacilitate diagnostic accuracy. Total DLP (Dose-Length Product): 1422.66 mGy.cm. Please note: The reportedvalue represents the total of one or more individual components during theCT acquisition on this date and at this time, and as such, the same valuemay appear in more than one CT report depending on theinterpreting/reporting physicians. COMPARISON: CT from September 23, 2021 FINDINGS: Lower Chest: There are [id number] bilateral pleural effusions.There is left lower lobe atelectasis. Patchy bibasal opacities arepresent. Solid Abdominal Organs: Liver demonstrates fatty change. No discretesuspicious focal liver lesions. Decompressed somewhat edematousgallbladder. Unremarkable pancreas and spleen. Unremarkable adrenalglands. No hydronephrosis. Small bilateral renal cysts are present.Punctate calculi are present bilaterally. GI Tract/Mesentery/Peritoneum: Large and small bowel appear normal incaliber. No pneumatosis. Mesenteric edema is present.. Pelvic Viscera: Decompressed, catheterized urinary bladder. No pelvicmass. Lymph Nodes/Vasculature: Aortoiliac vasculature is normal in caliber. Nolymphadenopathy Free Fluid:There is a small to moderate amount of ascites. Musculoskeletal and Body Wall:No clearly aggressive bone lesions. Smallhematoma along the laparotomy incision IMPRESSION: There is a small to moderate amount of ascites. No discrete fluidcollections to suggest abscess.. No evidence of bowel obstruction. Hematoma along the laparotomy incision, measuring roughly 4 x 3 cm in theaxial plane Patchy bibasal lung opacities CRITICAL RESULT: No. COMMUNICATION: Per this written report. Signed by Steve Hdz on 09/27/2021 10:46 AM Blanco Garcia APRN IMG CT PROCEDURES Final Res ult * Clostridiodes (Clostridium) difficile PCR (09/27/2021 9:27 AM EST) C difficile PCR toxin B gene DNA Result Not Detected Not Detected 09/27/2021 11:07 AM EST [facility] Stool Rectum structure / Unknown Non-blood Collection / Unknown 09/27/2021 9:27 AM EST 09/27/2021 9:58 AM EST Narrative [facility] - 09/27/2021 11:07 AM EST This test is FDA approved for use with liquid stool specimens. This test is used for ??clinical purposes. It should not be regarded as investigational or for research. This laboratory is certified under the Clinical Laboratory Improvement Amendments of 1988 (CLIA-88) as qualified to perform high complexity clinical laboratory testing. Blanco Garcia APRN LAB MICROBIOLOGY - GENERAL ORDERABLES Final Result [facility] [address] [place] [id number] * XR Abdomen 1 View (09/27/2021 8:05 AM EST) Anatomical Region Laterality Modality Body Digital Radiogra phy Impressions 09/27/2021 8:29 AM EST Interval improvement in the previously demonstrated gaseous colonic distention. No convincing radiographic features to suggest ileus or obstruction. No obvious pneumoperitoneum. CRITICAL RESULT: ?? No. COMMUNICATION: Per this written report. Signed by Roberta Iraheta on ??09/27/2021 8:29 AM Narrative 09/27/2021 8:29 AM EST Exam/Procedure: XR ABDOMEN 1 VIEW ordered by BLANCO GARCIA, [id number] CLINICAL INDICATION: Evaluate for ileus TECHNIQUE: Supine radiograph of the abdomen. COMPARISON: 09/25/2021 FINDINGS: Tip of the feeding tube projects over the ligament of Treitz. Tip of the NG tube projects over the distal duodenum. Status post laparotomy. Interval improvement in the previously demonstrated gaseous colonic distention. Nondistended gas-filled colonic loops. No convincing features suggest small bowel obstruction. No obvious pneumoperitoneum. Procedure Note Roberta Iraheta MD - 09/27/2021 Exam/Procedure: XR ABDOMEN 1 VIEW ordered by BLANCO GARCIA, [id number] CLINICAL INDICATION: Evaluate for ileus TECHNIQUE: Supine radiograph of the abdomen. COMPARISON: 09/25/2021 FINDINGS: Tip of the feeding tube projects over the ligament of Treitz. Tip of theNG tube projects over the distal duodenum. Status post laparotomy.Interval improvement in the previously demonstrated gaseous colonicdistention. Nondistended gas-filled colonic loops. No convincing featuressuggest small bowel obstruction. No obvious pneumoperitoneum. IMPRESSION: Interval improvement in the previously demonstrated gaseous colonicdistention. No convincing radiographic features to suggest ileus orobstruction. No obvious pneumoperitoneum. CRITICAL RESULT: No. COMMUNICATION: Per this written report. Signed by Roberta Iraheta on 09/27/2021 8:29 AM Blanco Garcia ASSEMBLY OPERATOR IMG XR PROCEDURES Final Res ult * POCT glucose meter (09/27/2021 6:25 AM EST) POCT Glucose 96 74 - 99 mg/dL 09/27/2021 6:30 AM EST [facility] Comment:Accuracy of a glucos e result obtained from a capillary whole blood specimen relies upon adequate, non-compromised capillary blood flow. If the capillary glucose result is not consistent with the patient's clinical signs and symptoms, glucose testing should be repeated with either an arterial or venous sample on the glucometer or sent to the main labortory for testing. Comment 09/27/2021 6:30 AM EST [facility] Manager Special Events ID Keaton Nj 6:30 AM EST [facility] Device ID [id number] 09/27/2021 6:30 AM EST [facility] Specimen Type POC Capillary 09/27/2021 6:30 AM EST [facility] Blood Capillary blood specimen / Unknown 09/27/2021 6:25 AM EST 09/27/2021 6:30 AM EST Jim Calzada MD LAB POINT OF CARE TE ST DOCKED DEVICE UNSOLICITED RESULTS Final Result Performing Organization Address City/[facility]/ZIP Co de Phone Number [facility] [address] [place] [address] * (ABNORMAL) Ionized calcium, whole blood (09/27/2021 4:43 AM EST) Pathologist [facility] Ionized Calcium, Whole Blood 4.5(L) 4.6 - 5.1 mg/dL LAB HEMATOLOGY METHOD 09/27/2021 5:14 AM EST [facility] Blood Venous blood specimen / Unknown Venipuncture / Unknown 09/27/2021 4:43 AM EST 09/27/2021 5:12 AM EST us Blanco Garcia APRN LAB BLOOD ORDERABLES Final Result [facility] [address] [place] [address] * (ABNORMAL) Protime-INR (09/27/2021 1:26 AM EST) Prothrombin Time 15.0(H) 12.0 - 14.3 sec LAB COAGULATION METHOD 09/27/2021 2:18 AM EST [facility] INR 1.2(H) 0.9 - 1.1 LAB COAGULATION METHOD 09/27/2021 2:18 AM EST [facility] Blood Venous blood specimen / Unknown Venipuncture / Unknown 09/27/2021 1:26 AM EST 09/27/2021 1:32 AM EST Narrative [facility] - 09/27/2021 2:18 AM EST OPTIMAL INR RANGES FOR PATIENT ON ORAL ANTICOAGULANT THERAPY Prevention of venous thromboembolism ?INR 2.0 to 3.0 In patients with heart disease: Atrial fibrillation ?INR 2.0 to 3.0 Valvular heart disease ? INR 2.0 to 3.0 Tissue heart valves ?INR 2.0 to 3.0 Mechanical prosthetic valves ? INR 2.5 to 3.5 Prevention of recurrent MO ? INR 2.5 to 3.5 us Keaton Melvin LAB BLOOD ORDERABLES Final Resul t Performing Organization Address [facility] de Phone Number [facility] [address] [place] [address] * (ABNORMAL) Triglycerides (09/27/2021 1:26 AM EST) Triglycerides, Plasma 180(H) <150 mg/dL 09/27/2021 2:03 AM EST [facility] Comment: Triglyceride Reference Range (age >17 years): Desirable:?? <150 mg/dL Borderline high:?? 150 to 199 mg/dL High:?? 200 to 499 mg/dL Very high:?? >499 mg/dL Increased risk of pancreatitis:?? >1000 mg/dL Blood Venous blood specimen / Unknown Venipuncture / Unknown 09/27/2021 1:26 AM EST 09/27/2021 1:32 AM EST us Carmina Nath APRN LAB BLOOD ORDERABLES Final Res ult Performing Organization Address City/[facility] Co de Phone Number [facility] [address] [place] [address] * Phosphorus, Plasma (09/27/2021 1:26 AM EST) Pathologist [facility] Phosphorus, Plasma 3.1 2.5 - 4.5 mg/dL 09/27/2021 2:03 AM EST [facility] Blood Venous blood specimen / Unknown Venipuncture / Unknown 09/27/2021 1:26 AM EST 09/27/2021 1:32 AM EST Blanco Garcia APRN LAB BLOOD ORDERABLES Final Result Performing Organization Address City/[facility]/ZIP Co de Phone Number [facility] [address] [place] [address] * Magnesium, Plasma (09/27/2021 1:26 AM EST) Pathologist [facility] Magnesium, Plasma 2.0 1.9 - 2.4 mg/dL 09/27/2021 2:03 AM EST [facility] Blood Venous blood specimen / Unknown Venipuncture / Unknown 09/27/2021 1:26 AM EST 09/27/2021 1:32 AM EST Blanco Garcia APRN LAB BLOOD ORDERABLES Final Result Performing Organization Address City/[facility] Co de Phone Number [facility] [address] [place] [address] * (ABNORMAL) Basic Metabolic Panel, Plasma (09/27/2021 1:26 AM EST) Pathologist [facility] Glucose, Plasma 117(H) 74 - 99 mg/dL 09/27/2021 2:03 AM EST [facility] BUN, Plasma 17 7 - 21 mg/dL 09/27/2021 2:03 AM EST [facility] Creatinine, Plasma 0.79 0.60 - 1.10 mg/dL 09/27/2021 2:03 AM EST [facility] BUN/Creatinine Ratio 22 09/27/2021 2:03 AM EST [facility] Sodium, Plasma 146(H) 136 - 145 mmol/L 09/27/2021 2:03 AM EST [facility] Potassium, Plasma 3.1(L) 3.7 - 4.8 mmol/L 09/27/2021 2:03 AM EST [facility] Chloride, Plasma 107 97 - 107 mmol/L 09/27/2021 2:03 AM EST [facility] CO2, Plasma 31(H) 22 - 29 mmol/L 09/27/2021 2:03 AM EST [facility] Anion Gap 8 6 - 16 mmol/L 09/27/2021 2:03 AM EST [facility] Total Calcium, Plasma 8.3(L) 8.9 - 10.2 mg/dL 09/27/2021 2:03 AM EST [facility] eGFR >60 >60 mL/min/1.7 3m*2 09/27/2021 2:03 AM EST [facility] Comment:eGFR = estimated GFR ; eGFR units = mL/min/1.73 sq meters Chronic Kidney Disease is considered if eGFR <60 mL/min/1.73 sq meters Kidney failure is considered if eGFR is <15 mL/min/1.73 sq meters. eGFR assumes steady state plasma creatinine concentration; not applicable if renal function is rapidly changing or patient is on dialysis. eGFR, if AFR/AM >60 >60 mL/min/1.7 3m*2 09/27/2021 2:03 AM EST [facility] Comment:eGFR = estimated GFR [...] blood specimen / Unknown Venipuncture / Unknown 09/27/2021 1:26 AM EST 09/27/2021 1:32 AM EST Blanco Garcia APRN LAB BLOOD ORDERABLES Final Result [facility] [address] [place] [address] * (ABNORMAL) CBC W/O Differential (09/27/2021 1:26 AM EST) [facility] WBC Count 20.77(H) 3.70 - 10.30 10*3/uL LAB HEMATOLOGY METHOD 09/27/2021 1:41 AM EST [facility] RBC Count 2.50(L) 3.90 - 5.20 10*6/uL LAB HEMATOLOGY METHOD 09/27/2021 1:41 AM EST [facility] HGB 8.0(L) 11.2 - 15.7 g/dL LAB HEMATOLOGY METHOD 09/27/2021 1:41 AM EST [facility] HCT 25.5(L) 34.0 - 45.0 % LAB HEMATOLOGY METHOD 09/27/2021 1:41 AM EST [facility] Platelet Count 670(H) 155 - 369 10*3/uL LAB HEMATOLOGY METHOD 09/27/2021 1:41 AM EST [facility] MCV 102(H) 79 - 98 fL LAB HEMATOLOGY METHOD 09/27/2021 1:41 AM EST [facility] MCH 32.0 26.0 - 32.0 pg LAB HEMATOLOGY METHOD 09/27/2021 1:41 AM EST [facility] MCHC 31.4 30.7 - 35.5 g/dL LAB HEMATOLOGY METHOD 09/27/2021 1:41 AM EST [facility] RDW 26.2(H) 11.5 - 14.5 % LAB HEMATOLOGY METHOD 09/27/2021 1:41 AM EST [facility] MPV 11.0 8.8 - 12.5 fL LAB HEMATOLOGY METHOD 09/27/2021 1:41 AM EST [facility] nRBC 0.0 <=0.0 per 100 WBCs LAB HEMATOLOGY METHOD 09/27/2021 1:41 AM EST [facility] Blood Venous blood specimen / Unknown Venipuncture / Unknown 09/27/2021 1:26 AM EST 09/27/2021 1:32 AM EST Blanco Garcia APRN LAB BLOOD ORDERABLES Final Result [facility] [address] [place] [address] * (ABNORMAL) POCT glucose meter (09/27/2021 12:57 AM EST) [facility] POCT Glucose 110(H) 74 - 99 mg/dL 09/27/2021 1:00 AM EST [facility] Comment:Accuracy of a glucos e result obtained from a capillary whole blood specimen relies upon adequate, non-compromised capillary blood flow. If the capillary glucose result is not consistent with the patient's clinical signs and symptoms, glucose testing should be repeated with either an arterial or venous sample on the glucometer or sent to the main labortory for testing. Comment 09/27/2021 1:00 AM EST [facility] Manager Special Events ID Keaton Nj 1:00 AM EST [facility] Device ID [id number] 09/27/2021 1:00 AM EST [facility] Specimen Type POC Capillary 09/27/2021 1:00 AM EST [facility] Blood Capillary blood specimen / Unknown 09/27/2021 12:57 AM EST 09/27/2021 1:00 AM EST us Jim Calzada MD LAB POINT OF CARE TE ST DOCKED DEVICE UNSOLICITED RESULTS Final Result Performing Organization Address City/[facility] Co de Phone Number [facility] [address] [place] [address] * POCT glucose meter (09/26/2021 5:54 PM EST) [facility] POCT Glucose 89 74 - 99 mg/dL 09/26/2021 6:00 PM EST [facility] Comment:Accuracy of a glucos e result obtained from a capillary whole blood specimen relies upon adequate, non-compromised capillary blood flow. If the capillary glucose result is not consistent with the patient's clinical signs and symptoms, glucose testing should be repeated with either an arterial or venous sample on the glucometer or sent to the main labortory for testing. Comment 09/26/2021 6:00 PM EST [facility] Manager Special Events ID Erick Sainz 09/26/2021 6:00 PM EST [facility] Device ID [id number] 09/26/2021 6:00 PM EST [facility] Specimen Type POC Capillary 09/26/2021 6:00 PM EST [facility] Blood Capillary blood specimen / Unknown 09/26/2021 5:54 PM EST 09/26/2021 6:00 PM EST us Jim Calzada MD LAB POINT OF CARE TE ST DOCKED DEVICE UNSOLICITED RESULTS Final Result Performing Organization Address City/[facility]/ZIP Co de Phone Number [facility] [address] [place] [address] * Sodium (09/26/2021 3:43 PM EST) Sodium, Plasma 143 136 - 145 mmol/L 09/26/2021 4:51 PM EST [facility] Blood Venous blood specimen / Unknown Venipuncture / Unknown 09/26/2021 3:43 PM EST 09/26/2021 3:57 PM EST Mark Smith APRN, SCARLET LAB BLOOD ORDERA BLES Final Result Performing Organization Address City/[facility]/ZIP Co de Phone Number [facility] [address] [place] [address] * (ABNORMAL) POCT glucose meter (09/26/2021 11:19 AM EST) [facility] POCT Glucose 109(H) 74 - 99 mg/dL 09/26/2021 11:25 AM EST [facility] Comment:Accuracy of a glucos e result obtained from a capillary whole blood specimen relies upon adequate, non-compromised capillary blood flow. If the capillary glucose result is not consistent with the patient's clinical signs and symptoms, glucose testing should be repeated with either an arterial or venous sample on the glucometer or sent to the main labortory for testing. Comment 09/26/2021 11:25 AM EST [facility] Manager Special Events ID Ameh, Erick 09/26/2021 11:25 AM EST [facility] Device ID [id number] 09/26/2021 11:25 AM EST [facility] Specimen Type POC Capillary 09/26/2021 11:25 AM EST [facility] Blood Capillary blood specimen / Unknown 09/26/2021 11:19 AM EST 09/26/2021 11:25 AM EST Jim Calzada MD LAB POINT OF CARE TE ST DOCKED DEVICE UNSOLICITED RESULTS Final Result Performing Organization Address City/[facility]/ZIP Co de Phone Number [facility] [address] [place] [address] * Sodium (09/26/2021 9:45 AM EST) Sodium, Plasma 144 136 - 145 mmol/L 09/26/2021 10:24 AM EST [facility] Blood Venous blood specimen / Unknown Venipuncture / Unknown 09/26/2021 9:45 AM EST 09/26/2021 9:54 AM EST Mark Smith APRN, DNP LAB BLOOD ORDERA BLES Final Result Performing Organization Address [facility] Co de Phone Number [facility] [address] [place] [address] * (ABNORMAL) POCT glucose meter (09/26/2021 5:11 AM EST) [facility] POCT Glucose 113(H) 74 - 99 mg/dL 09/26/2021 5:15 AM EST [facility] Comment:Accuracy of a glucos e result obtained from a capillary whole blood specimen relies upon adequate, non-compromised capillary blood flow. If the capillary glucose result is not consistent with the patient's clinical signs and symptoms, glucose testing should be repeated with either an arterial or venous sample on the glucometer or sent to the main labortory for testing. Comment 09/26/2021 5:15 AM EST [facility] Manager Special Events ID Keaton Nj 5:15 AM EST [facility] Device ID [id number] 09/26/2021 5:15 AM EST [facility] Specimen Type POC Capillary 09/26/2021 5:15 AM EST [facility] Blood Capillary blood specimen / Unknown 09/26/2021 5:11 AM EST 09/26/2021 5:15 AM EST Jim Calzada MD LAB POINT OF CARE TE ST DOCKED DEVICE UNSOLICITED RESULTS Final Result Performing Organization Address City/[facility]/ZIP Co de Phone Number [facility] [address] [place] [address] * XR Chest 1 View (09/26/2021 4:05 AM EST) Anatomical Region Laterality Modality Chest Digital Radiogra phy Impressions 09/26/2021 9:16 AM EST Increasing right basilar opacities, likely atelectasis with possible underlying airspace disease. CRITICAL RESULT: ?? No. COMMUNICATION: Per this written report. Dictated by Rashida Jaime on 09/26/2021 6:34 AM By electronically signing this report, I, the attending physician, attest that I have personally reviewed the images/data for the above examination(s) and agree with the final edited report. Signed by Leo Murphy on ??09/26/2021 9:16 AM Narrative 09/26/2021 9:16 AM EST Exam/Procedure: XR CHEST 1 VIEW ordered by MARK SMITH, [id number] CLINICAL INDICATION: Respiratory failure TECHNIQUE: XR CHEST 1 VIEW COMPARISON: Chest and abdominal radiographs 09/25/2021 FINDINGS: Interval extubation. Interval placement of esophagogastric tube, tip is not visualized though likely within the stomach. Remaining support hardware is unchanged. Increasing right basilar opacities. Small left pleural effusion. No pneumothorax. Procedure Note Leo Murphy MD - 09/26/2021 Exam/Procedure: XR CHEST 1 VIEW ordered by MARK SMITH, [id number] CLINICAL INDICATION: Respiratory failure TECHNIQUE: XR CHEST 1 VIEW COMPARISON: Chest and abdominal radiographs 09/25/2021 FINDINGS: Interval extubation. Interval placement of esophagogastric tube, tip isnot visualized though likely within the stomach. Remaining supporthardware is unchanged. Increasing right basilar opacities. Small leftpleural effusion. No pneumothorax. IMPRESSION: Increasing right basilar opacities, likely atelectasis with possibleunderlying airspace disease. CRITICAL RESULT: No. COMMUNICATION: Per this written report. Dictated by Rashida Jaime on 09/26/2021 6:34 AM By electronically signing this report, I, the attending physician, attestthat I have personally reviewed the images/data for the aboveexamination(s) and agree with the final edited report. Signed by Leo Murphy on 09/26/2021 9:16 AM us Mark Smith ASSEMBLY OPERATOR, DNP IMG XR PROCEDURE S Final Result * Sodium (09/26/2021 2:41 AM EST) Sodium, Plasma 145 136 - 145 mmol/L 09/26/2021 3:48 AM EST [facility] Blood Venous blood specimen / Unknown Venipuncture / Unknown 09/26/2021 2:41 AM EST 09/26/2021 2:53 AM EST Mark Smith ASSEMBLY OPERATOR, DNP LAB BLOOD ORDERA BLES Final Result [facility] [address] [place] [address] * (ABNORMAL) CBC W/O Differential (09/26/2021 2:41 AM EST) WBC Count 12.47(H) 3.70 - 10.30 10*3/uL LAB HEMATOLOGY METHOD 09/26/2021 3:06 AM EST [facility] RBC Count 2.30(L) 3.90 - 5.20 10*6/uL LAB HEMATOLOGY METHOD 09/26/2021 3:06 AM EST [facility] HGB 7.5(L) 11.2 - 15.7 g/dL LAB HEMATOLOGY METHOD 09/26/2021 3:06 AM EST [facility] HCT 24.4(L) 34.0 - 45.0 % LAB HEMATOLOGY METHOD 09/26/2021 3:06 AM EST [facility] Platelet Count 433(H) 155 - 369 10*3/uL LAB HEMATOLOGY METHOD 09/26/2021 3:06 AM EST [facility] MCV 106(H) 79 - 98 fL LAB HEMATOLOGY METHOD 09/26/2021 3:06 AM EST [facility] MCH 32.6(H) 26.0 - 32.0 pg LAB HEMATOLOGY METHOD 09/26/2021 3:06 AM EST [facility] MCHC 30.7 30.7 - 35.5 g/dL LAB HEMATOLOGY METHOD 09/26/2021 3:06 AM EST [facility] RDW 25.7(H) 11.5 - 14.5 % LAB HEMATOLOGY METHOD 09/26/2021 3:06 AM EST [facility] MPV 11.9 8.8 - 12.5 fL LAB HEMATOLOGY METHOD 09/26/2021 3:06 AM EST [facility] nRBC 0.2(H) <=0.0 per 100 WBCs LAB HEMATOLOGY METHOD 09/26/2021 3:06 AM EST [facility] Blood Venous blood specimen / Unknown Venipuncture / Unknown 09/26/2021 2:41 AM EST 09/26/2021 2:55 AM EST Mark Smith APRN, SCARLET LAB BLOOD ORDERA BLES Final Result Performing Organization Address [facility] de Phone Number [facility] [address] [place] [address] * (ABNORMAL) Prothrombin Time/INR (09/26/2021 2:41 AM EST) Prothrombin Time 16.2(H) 12.0 - 14.3 sec LAB COAGULATION METHOD 09/26/2021 3:55 AM EST [facility] INR 1.3(H) 0.9 - 1.1 LAB COAGULATION METHOD 09/26/2021 3:55 AM EST [facility] Blood Venous blood specimen / Unknown Venipuncture / Unknown 09/26/2021 2:41 AM EST 09/26/2021 2:54 AM EST Narrative [facility] - 09/26/2021 3:55 AM EST OPTIMAL INR RANGES FOR PATIENT ON ORAL ANTICOAGULANT THERAPY Prevention of venous thromboembolism ?INR 2.0 to 3.0 In patients with heart disease: Atrial fibrillation ?INR 2.0 to 3.0 Valvular heart disease ? INR 2.0 to 3.0 Tissue heart valves ?INR 2.0 to 3.0 Mechanical prosthetic valves ? INR 2.5 to 3.5 Prevention of recurrent MO ? INR 2.5 to 3.5 us Mark Smith APRN, SCARLET LAB BLOOD ORDERA BLES Final Result Performing Organization Address [facility] de Phone Number [facility] [address] [place] [address] * Phosphorus, Plasma (09/26/2021 2:41 AM EST) Phosphorus, Plasma 3.8 2.5 - 4.5 mg/dL 09/26/2021 3:48 AM EST [facility] Blood Venous blood specimen / Unknown Venipuncture / Unknown 09/26/2021 2:41 AM EST 09/26/2021 2:53 AM EST Mark Smith APRN, SCARLET LAB BLOOD ORDERA BLES Final Result Performing Organization Address [facility] de Phone Number [facility] [address] [place] [address] * (ABNORMAL) Magnesium, Plasma (09/26/2021 2:41 AM EST) Magnesium, Plasma 1.8(L) 1.9 - 2.4 mg/dL 09/26/2021 3:48 AM EST [facility] Blood Venous blood specimen / Unknown Venipuncture / Unknown 09/26/2021 2:41 AM EST 09/26/2021 2:53 AM EST Mark Smith APRN, SCARLET LAB BLOOD ORDERA BLES Final Result Performing Organization Address [facility] Phone Number [facility] [address] [place] [address] * (ABNORMAL) Comprehensive Metabolic Panel, Plasma (09/26/2021 2:41 AM EST) Glucose, Plasma 128(H) 74 - 99 mg/dL 09/26/2021 3:48 AM EST [facility] BUN, Plasma 22(H) 7 - 21 mg/dL 09/26/2021 3:48 AM EST [facility] Creatinine, Plasma 0.75 0.60 - 1.10 mg/dL 09/26/2021 3:48 AM EST [facility] BUN/Creatinine Ratio 29 09/26/2021 3:48 AM EST [facility] Sodium, Plasma 145 136 - 145 mmol/L 09/26/2021 3:48 AM EST [facility] Potassium, Plasma 3.3(L) 3.7 - 4.8 mmol/L 09/26/2021 3:48 AM EST [facility] Chloride, Plasma 110(H) 97 - 107 mmol/L 09/26/2021 3:48 AM EST [facility] CO2, Plasma 27 22 - 29 mmol/L 09/26/2021 3:48 AM [facility] Anion Gap 8 6 - 16 mmol/L 09/26/2021 3:48 AM [facility] Total Calcium, Plasma 7.9(L) 8.9 - 10.2 mg/dL 09/26/2021 3:48 AM [facility] Total Protein 5.4(L) 6.3 - 7.9 g/dL 09/26/2021 3:48 AM [facility] Albumin, Plasma 1.7(L) 3.5 - 5.2 g/dL 09/26/2021 3:48 AM [facility] AST, Plasma 56(H) 11 - 32 U/L 09/26/2021 3:48 AM [facility] ALT, Plasma 21 8 - 33 U/L 09/26/2021 3:48 AM [facility] Alkaline Phosphatase, Plasma 98 35 - 104 U/L 09/26/2021 3:48 AM [facility] Total Bilirubin, Plasma 0.7 0.2 - 1.1 mg/dL 09/26/2021 3:48 AM [facility] eGFR >60 >60 mL/min/1.7 3m*2 09/26/2021 3:48 AM [facility] Comment:eGFR = estimated GFR ; eGFR units = mL/min/1.73 sq meters Chronic Kidney Disease is considered if eGFR <60 mL/min/1.73 sq meters Kidney failure is considered if eGFR is <15 mL/min/1.73 sq meters. eGFR assumes steady state plasma creatinine concentration; not applicable if renal function is rapidly changing or patient is on dialysis. eGFR, if AFR/AM >60 >60 mL/min/1.7 3m*2 09/26/2021 3:48 AM [facility] Comment:eGFR = estimated GFR ; [...] blood specimen / Unknown Venipuncture / Unknown 09/26/2021 2:41 AM EST 09/26/2021 2:53 AM EST us Mark Smith APRN, DNP LAB BLOOD ORDERA BLES Final Result Performing Organization Address City/[facility] Co de Phone Number [facility] [address] [place] [address] * (ABNORMAL) POCT glucose meter (09/25/2021 11:50 PM EST) POCT Glucose 111(H) 74 - 99 mg/dL 09/25/2021 11:55 PM EST [facility] Comment:Accuracy of a glucos e result obtained from a capillary whole blood specimen relies upon adequate, non-compromised capillary blood flow. If the capillary glucose result is not consistent with the patient's clinical signs and symptoms, glucose testing should be repeated with either an arterial or venous sample on the glucometer or sent to the main labortory for testing. Comment 09/25/2021 11:55 PM EST [facility] Manager Special Events ID Keaton Nj 11:55 PM EST [facility] Device ID [id number] 09/25/2021 11:55 PM EST [facility] Specimen Type POC Capillary 09/25/2021 11:55 PM EST [facility] Blood Capillary blood specimen / Unknown 09/25/2021 11:50 PM EST 09/25/2021 11:55 PM EST Jim Calzada MD LAB POINT OF CARE TE ST DOCKED DEVICE UNSOLICITED RESULTS Final Result Performing Organization Address [facility] de Phone Number [facility] [address] [place] [address] * Sodium (09/25/2021 10:50 PM EST) Sodium, Plasma 143 136 - 145 mmol/L 09/25/2021 11:17 PM EST [facility] Blood Venous blood specimen / Unknown Venipuncture / Unknown 09/25/2021 10:50 PM EST 09/25/2021 10:55 PM EST Mark Smith APRN, DNP LAB BLOOD ORDERA BLES Final Result Performing Organization Address City/[facility]/ZIP Co de Phone Number [facility] [address] [place] [address] * POCT glucose meter (09/25/2021 6:10 PM EST) [facility] POCT Glucose 97 74 - 99 mg/dL 09/25/2021 6:15 PM EST [facility] Comment:Accuracy of a glucos e result obtained from a capillary whole blood specimen relies upon adequate, non-compromised capillary blood flow. If the capillary glucose result is not consistent with the patient's clinical signs and symptoms, glucose testing should be repeated with either an arterial or venous sample on the glucometer or sent to the main labortory for testing. Comment 09/25/2021 6:15 PM EST [facility] Manager Special Events ID Aubrey Pina 09/25/2021 6:15 PM EST [facility] Device ID [id number] 09/25/2021 6:15 PM EST [facility] Specimen Type POC Capillary 09/25/2021 6:15 PM EST [facility] Blood Capillary blood specimen / Unknown 09/25/2021 6:10 PM EST 09/25/2021 6:15 PM EST us Jim Calzada MD LAB POINT OF CARE TE ST DOCKED DEVICE UNSOLICITED RESULTS Final Result Performing Organization Address City/[facility] Co de Phone Number [facility] [address] [place] [address] * Ionized calcium, whole blood (09/25/2021 4:40 PM EST) [facility] Ionized Calcium, Whole Blood 4.7 4.6 - 5.1 mg/dL LAB HEMATOLOGY METHOD 09/25/2021 4:56 PM EST [facility] Blood Venous blood specimen / Unknown Venipuncture / Unknown 09/25/2021 4:40 PM EST 09/25/2021 4:55 PM EST Mark Smith APRN, DNP LAB BLOOD ORDERA BLES Final Result Performing Organization Address City/[facility]/ZIP Co de Phone Number [facility] [address] [place] [address] * Sodium (09/25/2021 4:40 PM EST) Sodium, Plasma 145 136 - 145 mmol/L 09/25/2021 5:46 PM EST [facility] Blood Venous blood specimen / Unknown Venipuncture / Unknown 09/25/2021 4:40 PM EST 09/25/2021 5:21 PM EST Mark Smith APRN, SCARLET LAB BLOOD ORDERA BLES Final Result Performing Organization Address City/[facility] Co de Phone Number [facility] [address] [place] [address] * (ABNORMAL) POCT glucose meter (09/25/2021 12:32 PM EST) Pathologist [facility] POCT Glucose 107(H) 74 - 99 mg/dL 09/25/2021 12:35 PM EST [facility] Comment:Accuracy of a glucos e result obtained from a capillary whole blood specimen relies upon adequate, non-compromised capillary blood flow. If the capillary glucose result is not consistent with the patient's clinical signs and symptoms, glucose testing should be repeated with either an arterial or venous sample on the glucometer or sent to the main labortory for testing. Comment 09/25/2021 12:35 PM EST [facility]ALTHCARE LAB Manager Special Events ID Aubrey Pina 09/25/2021 12:35 PM EST HEALTHCARE LAB Device ID [id number] 09/25/2021 12:35 PM EST HEALTHCARE LAB Specimen Type POC Capillary 09/25/2021 12:35 PM EST [facility] Blood Capillary blood specimen / Unknown 09/25/2021 12:32 PM EST 09/25/2021 12:35 PM EST us Jim Calzada MD LAB POINT OF CARE TE ST DOCKED DEVICE UNSOLICITED RESULTS Final Result Performing Organization Address [facility] Co de Phone Number [facility] [address] [place] [address] * XR Abdomen 1 View (09/25/2021 12:22 PM EST) Anatomical Region Laterality Modality Body Digital Radiogra phy Impressions 09/25/2021 12:29 PM EST Findings are most suggestive of developing ileus. CRITICAL RESULT: ?? No. COMMUNICATION: Per this written report. Signed by Lenora De Anda on ??09/25/2021 12:29 PM Narrative 09/25/2021 12:29 PM EST Exam/Procedure: XR ABDOMEN 1 VIEW ordered by MARK SMITH, [id number] CLINICAL INDICATION: increased abdominal distention TECHNIQUE: Supine radiograph of the abdomen. COMPARISON: September 24, 2021 abdominal x-ray 23 hours ago FINDINGS: Mild to moderate gaseous distention of normal caliber stomach. A diffuse increase in gas throughout the large bowel and small bowel. The small bowel loops remain normal in caliber. The ascending and transverse colon are borderline to mildly dilated. The descending colon is decompressed and contains minimal gas. The cecum measures up to 8.3 cm. Cutaneous maximilian are seen in the midline. A feeding tube tip is seen in the third portion of the duodenum just to the left of the midline. No pneumatosis or free air. Procedure Note Lenora De Anda MD - 09/25/2021 Exam/Procedure: XR ABDOMEN 1 VIEW ordered by MARK SMITH,[id number] CLINICAL INDICATION: increased abdominal distention TECHNIQUE: Supine radiograph of the abdomen. COMPARISON: September 24, 2021 abdominal x-ray 23 hours ago FINDINGS: Mild to moderate gaseous distention of normal caliber stomach. A diffuseincrease in gas throughout the large bowel and small bowel. The smallbowel loops remain normal in caliber. The ascending and transverse colonare borderline to mildly dilated. The descending colon is decompressed andcontains minimal gas. The cecum measures up to 8.3 cm. Cutaneous staplesare seen in the midline. A feeding tube tip is seen in the third portionof the duodenum just to the left of the midline. No pneumatosis or freeair. IMPRESSION: Findings are most suggestive of developing ileus. CRITICAL RESULT: No. COMMUNICATION: Per this written report. Signed by Lenora De Anda on 09/25/2021 12:29 PM Mark Smith ASSEMBLY OPERATOR, DNP IMG XR PROCEDURE S Final Result * (ABNORMAL) Sodium (09/25/2021 10:43 AM EST) Sodium, Plasma 147(H) 136 - 145 mmol/L 09/25/2021 11:25 AM EST [facility] Blood Venous blood specimen / Unknown Venipuncture / Unknown 09/25/2021 10:43 AM EST 09/25/2021 10:59 AM EST us Mark Smith APRN, DNP LAB BLOOD ORDERA BLES Final Result Performing Organization Address City/State/ZIP Co ct Phone Number [facility] [address] [place] [address] * [place] CRITICAL CARE, E/M 30-74 MINUTES (09/25/2021 9:31 AM EST) Narrative Mark Smith NP - 09/25/2021 9:31 AM EST Mark Smith NP ? 09/25/2021 10:52 AM Critical Care Performed by: Mark Smith NP Authorized by: Mark Smith NP Critical care provider statement: ??Critical care time (minutes): ??60 ??Critical care time was exclusive of: ??Separately billable procedures and treating other patients and teaching time ??Critical care was time spent personally by me on the following activities: ??Development of treatment plan with patient or surrogate, evaluation of patient's response to treatment, examination of patient, ventilator management, review of old charts, ordering and review of radiographic studies, ordering and review of laboratory studies and ordering and performing treatments and interventions Comments: ?? This patient is critically ill with acute respiratory failure on mechanical ventilation. ?? Thus far, I have spent the above referenced minutes, devoted solely to this patient managing life/organ supporting interventions that required physical assessment. ??This includes time spent making adjustments in ventilator settings, reviewing and adjusting antibiotics and all medications, discussion of patient with consultants and other care providers as well as updating patient and/or family (if patient by virtue of his/her condition is unable to participate in decision making). ??This does not include time spent performing separately billed procedures. ??Time is not concurrent with that of other providers. us Mark Smith APRN, [facility] IN [facility]/BEDSID E ORDERABLES Final Result * (ABNORMAL) Hemogram (CBC) (09/25/2021 8:35 AM EST) WBC Count 19.15(H) 3.70 - 10.30 10*3/uL LAB HEMATOLOGY METHOD 09/25/2021 9:06 AM EST [facility] RBC Count 2.50(L) 3.90 - 5.20 10*6/uL LAB HEMATOLOGY METHOD 09/25/2021 9:06 AM EST [facility] HGB 8.0(L) 11.2 - 15.7 g/dL LAB HEMATOLOGY METHOD 09/25/2021 9:06 AM EST [facility] HCT 26.2(L) 34.0 - 45.0 % LAB HEMATOLOGY METHOD 09/25/2021 9:06 AM EST [facility] Platelet Count 442(H) 155 - 369 10*3/uL LAB HEMATOLOGY METHOD 09/25/2021 9:06 AM EST [facility] MCV 105(H) 79 - 98 fL LAB HEMATOLOGY METHOD 09/25/2021 9:06 AM EST [facility] Comment:Results inconsistent with previous lab findings. MCH 32.0 26.0 - 32.0 pg LAB HEMATOLOGY METHOD 09/25/2021 9:06 AM EST [facility] MCHC 30.5(L) 30.7 - 35.5 g/dL LAB HEMATOLOGY METHOD 09/25/2021 9:06 AM EST [facility] RDW 25.8(H) 11.5 - 14.5 % LAB HEMATOLOGY METHOD 09/25/2021 9:06 AM EST [facility] MPV 11.7 8.8 - 12.5 fL LAB HEMATOLOGY METHOD 09/25/2021 9:06 AM EST [facility] nRBC 0.1(H) <=0.0 per 100 WBCs LAB HEMATOLOGY METHOD 09/25/2021 9:06 AM EST [facility] Blood Venous blood specimen / Unknown Venipuncture / Unknown 09/25/2021 8:35 AM EST 09/25/2021 8:56 AM EST Mark Smith ASSEMBLY OPERATOR, DNP LAB BLOOD ORDERA BLES Final Result [facility] [address] [place] [address] * Transfuse RBC (09/25/2021 7:52 AM EST) us Dylan HANSON BLOOD TRANSFUSION ORDERABLES Final Result * Transfuse RBC: 1 Units (09/25/2021 7:52 AM EST) us Dylan HANSON BLOOD TRANSFUSION ORDERABLES Final Result * (ABNORMAL) POCT glucose meter (09/25/2021 6:44 AM EST) POCT Glucose 112(H) 74 - 99 mg/dL 09/25/2021 6:50 AM EST [facility] LAB Comment:Accuracy of a glucos e result obtained from a capillary whole blood specimen relies upon adequate, non-compromised capillary blood flow. If the capillary glucose result is not consistent with the patient's clinical signs and symptoms, glucose testing should be repeated with either an arterial or venous sample on the glucometer or sent to the main labortory for testing. Comment 09/25/2021 6:50 AM EST [facility]ARE LAB Manager Special Events ID Keaton Nj 6:50 AM EST [facility] Device ID [id number] 09/25/2021 6:50 AM EST [facility] LAB Specimen Type POC Capillary 09/25/2021 6:50 AM EST [facility] Blood Capillary blood specimen / Unknown 09/25/2021 6:44 AM EST 09/25/2021 6:50 AM EST us Jim Calzada MD LAB POINT OF CARE TE ST DOCKED DEVICE UNSOLICITED RESULTS Final Result Performing Organization Address City/[facility]/ZIP Co de Phone Number [facility] [address] [place] [address] * Type and screen (09/25/2021 5:19 AM EST) ABO/Rh O Positive 09/25/2021 5:04 AM EST BLO[facility] BANK Antibody Screen Negative 09/25/2021 5:04 AM EST [facility] Blood Venous blood specimen / Unknown Venipuncture / Unknown 09/25/2021 5:19 AM EST 09/25/2021 5:22 AM EST us Dylan HANSON LAB BLOOD BANK TEST ORDERABL ES Final Result BLOOD BANK [address] * Prepare Leukocyte Reduced RBC: 1 Units (09/25/2021 5:04 AM EST) Product Code [id number] CH BLOO D BANK Dispense Status Transfused BLOOD BANK Blood Expiration Date [id number] BLOOD BANK Unit Number [id number] CH B LOOD BANK Product Blood Type 5100 BLOOD BANK Blood Type O+ BLOOD BANK Crossmatch Compatible BLOOD BANK Other Dylan Pereira PA BLOOD BANK PRODUCT ORDERABLE S Final Result Performing Organization Address [facility] de Phone Number BLOOD BANK [address] [place] [address] * (ABNORMAL) Sodium (09/25/2021 4:07 AM EST) Pathologist [facility] Sodium, Plasma 146(H) 136 - 145 mmol/L 09/25/2021 4:54 AM EST [facility]ARE LAB Blood Venous blood specimen / Unknown Venipuncture / Unknown 09/25/2021 4:07 AM EST 09/25/2021 4:24 AM EST Mark Smith APRN, SCARLET LAB BLOOD ORDERA BLES Final Result Performing Organization Address [facility] de Phone Number [facility]ALTH[facility] LAB [address] [place] [address] * Ionized calcium, whole blood (09/25/2021 4:07 AM EST) Pathologist [facility] Ionized Calcium, Whole Blood 4.6 4.6 - 5.1 mg/dL LAB HEMATOLOGY METHOD 09/25/2021 4:26 AM EST [facility] Blood Venous blood specimen / Unknown Venipuncture / Unknown 09/25/2021 4:07 AM EST 09/25/2021 4:24 AM EST Mark Smith APRN, SCARLET LAB BLOOD ORDERA BLES Final Result Performing Organization Address City/[facility] Co de Phone Number [facility]ALTHCARE LAB [address] [place] [address] * (ABNORMAL) Prothrombin Time/INR (09/25/2021 4:07 AM EST) Prothrombin Time 16.7(H) 12.0 - 14.3 sec LAB COAGULATION METHOD 09/25/2021 5:35 AM EST [facility] INR 1.4(H) 0.9 - 1.1 LAB COAGULATION METHOD 09/25/2021 5:35 AM EST [facility] Blood Venous blood specimen / Unknown Venipuncture / Unknown 09/25/2021 4:07 AM EST 09/25/2021 4:24 AM EST Narrative [facility] - 09/25/2021 5:35 AM EST OPTIMAL INR RANGES FOR PATIENT ON ORAL ANTICOAGULANT THERAPY Prevention of venous thromboembolism ?INR 2.0 to 3.0 In patients with heart disease: Atrial fibrillation ?INR 2.0 to 3.0 Valvular heart disease ? INR 2.0 to 3.0 Tissue heart valves ?INR 2.0 to 3.0 Mechanical prosthetic valves ? INR 2.5 to 3.5 Prevention of recurrent MO ? INR 2.5 to 3.5 Mark Smith APRN, DNP LAB BLOOD ORDERA BLES Final Result [facility] [address] [place] [address] * (ABNORMAL) CBC W/O Differential (09/25/2021 4:07 AM EST) WBC Count 16.03(H) 3.70 - 10.30 10*3/uL LAB HEMATOLOGY METHOD 09/25/2021 4:36 AM EST [facility] RBC Count 2.05(L) 3.90 - 5.20 10*6/uL LAB HEMATOLOGY METHOD 09/25/2021 4:36 AM EST [facility] HGB 6.7(L) 11.2 - 15.7 g/dL LAB HEMATOLOGY METHOD 09/25/2021 4:36 AM EST [facility] HCT 22.7(L) 34.0 - 45.0 % LAB HEMATOLOGY METHOD 09/25/2021 4:36 AM EST [facility] Platelet Count 446(H) 155 - 369 10*3/uL LAB HEMATOLOGY METHOD 09/25/2021 4:36 AM EST [facility] MCV 111(H) 79 - 98 fL LAB HEMATOLOGY METHOD 09/25/2021 4:36 AM EST [facility] MCH 32.7(H) 26.0 - 32.0 pg LAB HEMATOLOGY METHOD 09/25/2021 4:36 AM EST [facility] MCHC 29.5(L) 30.7 - 35.5 g/dL LAB HEMATOLOGY METHOD 09/25/2021 4:36 AM EST [facility] RDW 27.2(H) 11.5 - 14.5 % LAB HEMATOLOGY METHOD 09/25/2021 4:36 AM EST [facility] MPV 11.8 8.8 - 12.5 fL LAB HEMATOLOGY METHOD 09/25/2021 4:36 AM EST [facility] nRBC 0.0 <=0.0 per 100 WBCs LAB HEMATOLOGY METHOD 09/25/2021 4:36 AM EST [facility] Blood Venous blood specimen / Unknown Venipuncture / Unknown 09/25/2021 4:07 AM EST 09/25/2021 4:27 AM EST Mark Smith APRN, SCARLET LAB BLOOD ORDERA BLES Final Result Performing Organization Address City/State/[facility] de Phone Number [facility] [address] [place] [address] * (ABNORMAL) Phosphorus, Plasma (09/25/2021 4:07 AM EST) Pathologist [facility] Phosphorus, Plasma 2.2(L) 2.5 - 4.5 mg/dL 09/25/2021 4:54 AM EST [facility] Blood Venous blood specimen / Unknown Venipuncture / Unknown 09/25/2021 4:07 AM EST 09/25/2021 4:24 AM EST Mark Smith APRN, DNP LAB BLOOD ORDERA BLES Final Result Performing Organization Address City/[facility]/ZIP Co de Phone Number [facility] [address] [place] [address] * Magnesium, Plasma (09/25/2021 4:07 AM EST) Pathologist [facility] Magnesium, Plasma 2.0 1.9 - 2.4 mg/dL 09/25/2021 4:54 AM EST [facility] Blood Venous blood specimen / Unknown Venipuncture / Unknown 09/25/2021 4:07 AM EST 09/25/2021 4:24 AM EST Mark Smith APRN, DNP LAB BLOOD ORDERA BLES Final Result Performing Organization Address [facility] Co de Phone Number HEALTHCARE LAB [address] [place] [address] * (ABNORMAL) Comprehensive Metabolic Panel, Plasma (09/25/2021 4:07 AM EST) Pathologist [facility] Glucose, Plasma 120(H) 74 - 99 mg/dL 09/25/2021 4:54 AM EST [facility] BUN, Plasma 26(H) 7 - 21 mg/dL 09/25/2021 4:54 AM EST [facility] Creatinine, Plasma 0.77 0.60 - 1.10 mg/dL 09/25/2021 4:54 AM EST [facility] BUN/Creatinine Ratio 34 09/25/2021 4:54 AM EST HEALTHCARE LAB Sodium, Plasma 146(H) 136 - 145 mmol/L 09/25/2021 4:54 AM EST [facility] Potassium, Plasma 3.8 3.7 - 4.8 mmol/L 09/25/2021 4:54 AM EST [facility] Chloride, Plasma 113(H) 97 - 107 mmol/L 09/25/2021 4:54 AM EST [facility]ALTHCARE LAB CO2, Plasma 26 22 - 29 mmol/L 09/25/2021 4:54 AM EST [facility]ALTH[facility]ARE LAB Anion Gap 7 6 - 16 mmol/L 09/25/2021 4:54 AM EST [facility] Total Calcium, Plasma 7.7(L) 8.9 - 10.2 mg/dL 09/25/2021 4:54 AM EST [facility] Total Protein 5.6(L) 6.3 - 7.9 g/dL 09/25/2021 4:54 AM EST [facility] Albumin, Plasma 1.7(L) 3.5 - 5.2 g/dL 09/25/2021 4:54 AM EST [facility] AST, Plasma 81(H) 11 - 32 U/L 09/25/2021 4:54 AM EST [facility] ALT, Plasma 23 8 - 33 U/L 09/25/2021 4:54 AM EST [facility] Alkaline Phosphatase, Plasma 129(H) 35 - 104 U/L 09/25/2021 4:54 AM EST [facility] Total Bilirubin, Plasma 0.9 0.2 - 1.1 mg/dL 09/25/2021 4:54 AM EST [facility] eGFR >60 >60 mL/min/1.7 3m*2 09/25/2021 4:54 AM EST [facility] Comment:eGFR = estimated GFR ; eGFR units = mL/min/1.73 sq meters Chronic Kidney Disease is considered if eGFR <60 mL/min/1.73 sq meters Kidney failure is considered if eGFR is <15 mL/min/1.73 sq meters. eGFR assumes steady state plasma creatinine concentration; not applicable if renal function is rapidly changing or patient is on dialysis. eGFR, if AFR/AM >60 >60 mL/min/1.7 3m*2 09/25/2021 4:54 AM EST [facility] Comment:eGFR = estimated GFR [...] blood specimen / Unknown Venipuncture / Unknown 09/25/2021 4:07 AM EST 09/25/2021 4:24 AM EST us Mark Smith ASSEMBLY OPERATOR, DNP LAB BLOOD ORDERA BLES Final Result [facility] [address] [place] [address] * XR Chest 1 View (09/25/2021 2:25 AM EST) Anatomical Region Laterality Modality Chest Digital Radiogra phy Impressions 09/25/2021 8:52 AM EST Stable exam. CRITICAL RESULT: ?? No. COMMUNICATION: Per this written report. Signed by Talon Street on ??09/25/2021 8:52 AM Narrative 09/25/2021 8:52 AM EST Exam/Procedure: XR CHEST 1 VIEW ordered by DYLAN PEREIRA [id number] CLINICAL INDICATION: check ETT position TECHNIQUE: XR CHEST 1 VIEW COMPARISON: September 23, 2021 FINDINGS: Support hardware projects in good position. Mediastinal and cardiac contours are stable. Perihilar and basal airspace disease and left pleural effusion are similar to prior. Procedure Note Talon Street MD - 09/25/2021 Exam/Procedure: XR CHEST 1 VIEW ordered by DYLAN PEREIRA [id number] CLINICAL INDICATION: check ETT position TECHNIQUE: XR CHEST 1 VIEW COMPARISON: September 23, 2021 FINDINGS: Support hardware projects in good position. Mediastinal and cardiaccontours are stable. Perihilar and basal airspace disease and left pleuraleffusion are similar to prior. IMPRESSION: Stable exam. CRITICAL RESULT: No. COMMUNICATION: Per this written report. Signed by Talon Street on 09/25/2021 8:52 AM us Dylan Pereira PA IMG XR PROCEDURES Final Resu lt * (ABNORMAL) POCT glucose meter (09/25/2021 12:47 AM EST) Pathologist [facility] POCT Glucose 117(H) 74 - 99 mg/dL 09/25/2021 12:50 AM EST [facility] Comment:Accuracy of a glucos e result obtained from a capillary whole blood specimen relies upon adequate, non-compromised capillary blood flow. If the capillary glucose result is not consistent with the patient's clinical signs and symptoms, glucose testing should be repeated with either an arterial or venous sample on the glucometer or sent to the main labortory for testing. Comment 09/25/2021 12:50 AM EST [facility] Manager Special Events ID Keaton Nj 12:50 AM EST [facility] Device ID [id number] 09/25/2021 12:50 AM EST HEALTHCARE LAB Specimen Type POC Capillary 09/25/2021 12:50 AM EST [facility] Blood Capillary blood specimen / Unknown 09/25/2021 12:47 AM EST 09/25/2021 12:50 AM EST Jim Calzada MD LAB POINT OF CARE TE ST DOCKED DEVICE UNSOLICITED RESULTS Final Result Performing Organization Address City/[facility]/ZIP Co de Phone Number [facility] [address] [place] [address] * Sodium (09/24/2021 9:37 PM EST) Pathologist [facility] Sodium, Plasma 144 136 - 145 mmol/L 09/24/2021 10:35 PM EST [facility] Blood Venous blood specimen / Unknown Venipuncture / Unknown 09/24/2021 9:37 PM EST 09/24/2021 10:11 PM EST Mark Smith APRN, SCARLET LAB BLOOD ORDERA BLES Final Result Performing Organization Address City/[facility] Co de Phone Number [facility] [address] [place] [address] * (ABNORMAL) POCT glucose meter (09/24/2021 5:11 PM EST) [facility] POCT Glucose 124(H) 74 - 99 mg/dL 09/24/2021 5:15 PM EST [facility] Comment:Accuracy of a glucos e result obtained from a capillary whole blood specimen relies upon adequate, non-compromised capillary blood flow. If the capillary glucose result is not consistent with the patient's clinical signs and symptoms, glucose testing should be repeated with either an arterial or venous sample on the glucometer or sent to the main labortory for testing. Comment 09/24/2021 5:15 PM EST [facility] Manager Special Events ID Santos Berman 09/24/19 5:15 PM EST [facility] Device ID [id number] 09/24/2021 5:15 PM EST HEALTHCARE LAB Specimen Type POC Capillary 09/24/2021 5:15 PM EST [facility] Blood Capillary blood specimen / Unknown 09/24/2021 5:11 PM EST 09/24/2021 5:15 PM EST Jim Calzada MD LAB POINT OF CARE TE ST DOCKED DEVICE UNSOLICITED RESULTS Final Result Performing Organization Address [facility] Co de Phone Number [facility] [address] [place] [address] * Phosphorus (09/24/2021 2:38 PM EST) Phosphorus, Plasma 2.8 2.5 - 4.5 mg/dL 09/24/2021 3:48 PM EST [facility] Blood Blood sample taken from central line / Unknown Venipuncture / Unknown 09/24/2021 2:38 PM EST 09/24/2021 3:19 PM EST Mark Smith APRN, DNP LAB BLOOD ORDERA BLES Final Result Performing Organization Address [facility] Phone Number [facility] [address] [place] [address] * Magnesium (09/24/2021 2:38 PM EST) Magnesium, Plasma 2.2 1.9 - 2.4 mg/dL 09/24/2021 3:48 PM EST [facility] Blood Blood sample taken from central line / Unknown Venipuncture / Unknown 09/24/2021 2:38 PM EST 09/24/2021 3:19 PM EST Mark Smith APRN, DNP LAB BLOOD ORDERA BLES Final Result Performing Organization Address [facility] de Phone Number [facility] [address] [place] [address] * (ABNORMAL) Basic metabolic panel (09/24/2021 2:38 PM EST) Glucose, Plasma 122(H) 74 - 99 mg/dL 09/24/2021 3:48 PM EST [facility] BUN, Plasma 29(H) 7 - 21 mg/dL 09/24/2021 3:48 PM [facility] Creatinine, Plasma 0.72 0.60 - 1.10 mg/dL 09/24/2021 3:48 PM [facility] BUN/Creatinine Ratio 40 09/24/2021 3:48 PM [facility] Sodium, Plasma 146(H) 136 - 145 mmol/L 09/24/2021 3:48 PM [facility] Potassium, Plasma 3.9 3.7 - 4.8 mmol/L 09/24/2021 3:48 PM [facility] Chloride, Plasma 109(H) 97 - 107 mmol/L 09/24/2021 3:48 PM [facility] CO2, Plasma 28 22 - 29 mmol/L 09/24/2021 3:48 PM [facility] Anion Gap 9 6 - 16 mmol/L 09/24/2021 3:48 PM [facility] Total Calcium, Plasma 7.9(L) 8.9 - 10.2 mg/dL 09/24/2021 3:48 PM [facility] eGFR >60 >60 mL/min/1.7 3m*2 09/24/2021 3:48 PM [facility] Comment:eGFR = estimated GFR ; eGFR units = mL/min/1.73 sq meters Chronic Kidney Disease is considered if eGFR <60 mL/min/1.73 sq meters Kidney failure is considered if eGFR is <15 mL/min/1.73 sq meters. eGFR assumes steady state plasma creatinine concentration; not applicable if renal function is rapidly changing or patient is on dialysis. eGFR, if AFR/AM >60 >60 mL/min/1.7 3m*2 09/24/2021 3:48 PM [facility] Comment:eGFR = estimated GFR ; eGFR units = mL/min/1.73 sq meters Chronic Kidney Disease is considered if eGFR <60 mL/min/1.73 sq meters Kidney failure is considered if eGFR is <15 mL/min/1.73 sq meters. eGFR assumes steady state plasma creatinine concentration; not applicable if renal function is rapidly changing or patient is on dialysis. Blood Blood sample taken from central line / Unknown Venipuncture / Unknown 09/24/2021 2:38 PM EST 09/24/2021 3:19 PM EST Mark Smith ASSEMBLY OPERATOR, DNP LAB BLOOD ORDERA BLES Final Result [facility] [address] [place] [address] * XR Abdomen 1 View (09/24/2021 12:33 PM EST) Anatomical Region Laterality Modality Body Digital Radiogra phy Impressions 09/24/2021 3:12 PM EST The tip of the feeding tube is overlying the second segment of the duodenum. CRITICAL RESULT: ?? No. COMMUNICATION: Per this written report. By electronically signing this report, I, the attending physician, attest that I have personally reviewed the images/data for the above examination(s) and agree with the final edited report. Signed by Woo Mukherjee on ??09/24/2021 3:12 PM Narrative 09/24/2021 3:12 PM EST Exam/Procedure: XR ABDOMEN 1 VIEW ordered by MARK SMITH, [id number] CLINICAL INDICATION: Feeding tube placement. Evaluate position. TECHNIQUE: Supine radiograph of the abdomen. COMPARISON: CT abdomen/pelvis September 23, 2021. . Chest x-ray September 23, 2021. FINDINGS: Limited [id number] abdominal radiograph for the purpose of locating feeding tube position. The tip of the feeding tube is overlying the second segment of the duodenum. Diffuse soft tissue edema of the visualized left abdomen. Unchanged visualized lower chest. Procedure Note Woo Mukherjee MD - 09/24/2021 Exam/Procedure: XR ABDOMEN 1 VIEW ordered by MARK SMITH,[id number] CLINICAL INDICATION: Feeding tube placement. Evaluate position. TECHNIQUE: Supine radiograph of the abdomen. COMPARISON: CT abdomen/pelvis September 23, 2021. . Chest x-ray September 23, 2021. FINDINGS: Limited [id number] abdominal radiograph for the purpose of locatingfeeding tube position. The tip of the feeding tube is overlying the second segment of theduodenum. Diffuse soft tissue edema of the visualized left abdomen. Unchangedvisualized lower chest. IMPRESSION: The tip of the feeding tube is overlying the second segment of theduodenum. CRITICAL RESULT: No. COMMUNICATION: Per this written report. By electronically signing this report, I, the attending physician, attestthat I have personally reviewed the images/data for the aboveexamination(s) and agree with the final edited report. Signed by Woo Mukherjee on 09/24/2021 3:12 PM us Mark Smith APRN, DNP IMG XR PROCEDURE S Final Result * [facility], E/M 30-74 MINUTES (09/24/2021 12:21 PM EST) Narrative Mark Smith NP - 09/24/2021 12:21 PM EST Mark Smith NP ? 09/24/2021 12:35 PM Critical Care Performed by: Mark Smith NP Authorized by: Mark Smith NP Critical care provider statement: ??Critical care time (minutes): ??60 ??Critical care time was exclusive of: ??Separately billable procedures and treating other patients and teaching time ??Critical care was time spent personally by me on the following activities: ??Development of treatment plan with patient or surrogate, evaluation of patient's response to treatment, examination of patient, ventilator management, review of old charts, ordering and review of radiographic studies, ordering and review of laboratory studies and ordering and performing treatments and interventions Comments: ?? This patient is critically ill with acute respiratory failure on mechanical ventilation and acute encephalopathy. ?? Thus far, I have spent the above referenced minutes, devoted solely to this patient managing life/organ supporting interventions that required physical assessment. ?? This includes time spent making adjustments in ventilator settings, reviewing and adjusting antibiotics and all medications, discussion of patient with consultants and other care providers as well as updating patient and/or family (if patient by virtue of his/her condition is unable to participate in decision making). ??This does not include time spent performing separately billed procedures. ??Time is not concurrent with that of other providers. us Mark Smith APRN, DNP IN CLINIC/BEDSID E ORDERABLES Final Result * POCT glucose meter (09/24/2021 11:28 AM EST) POCT Glucose 77 74 - 99 mg/dL 09/24/2021 11:30 AM EST [facility] Comment:Accuracy of a glucos e result obtained from a capillary whole blood specimen relies upon adequate, non-compromised capillary blood flow. If the capillary glucose result is not consistent with the patient's clinical signs and symptoms, glucose testing should be repeated with either an arterial or venous sample on the glucometer or sent to the main labortory for testing. Comment 09/24/2021 11:30 AM EST [facility] Manager Special Events ID Emma Linton 09/24/2021 11:30 AM EST [facility] Device ID [id number] 09/24/2021 11:30 AM EST [facility] Specimen Type POC Capillary 09/24/2021 11:30 AM EST [facility] Blood Capillary blood specimen / Unknown 09/24/2021 11:28 AM EST 09/24/2021 11:30 AM EST Jim Calzada MD LAB POINT OF CARE TE ST DOCKED DEVICE UNSOLICITED RESULTS Final Result Performing Organization Address City/State/[facility] de Phone Number [facility] [address] [place] [address] * (ABNORMAL) Urine Drug Screen Qual (09/24/2021 10:57 AM EST) Fluconazole Positive( A) Negative 09/25/2021 1:53 AM EST [facility] Metronidazole Positive( A) Negative 09/25/2021 1:53 AM EST [facility] Mirtazapine Positive( A) Negative 09/25/2021 1:53 AM EST [facility] Comprehensive Urine Drug Screen Result Positive( A) Negative 09/25/2021 1:53 AM EST [facility] Urine Urine specimen from urinary conduit / Unknown Non-blood Collection / Unknown 09/24/2021 10:57 AM EST 09/24/2021 11:20 AM EST Narrative [facility] - 09/25/2021 1:53 AM EST Drugs in urine are analyzed by gas chromatography-mass spectrometry. This test was developed and its performance characteristics determined by [facility].It has not been cleared or approved by the FDA.The laboratory is regulated under CLIA as qualified to perform high-complexity testing. This test is used for clinical purposes. Testing is performed at the [facility], Special [facility] Laboratory. Drugs detected MAY include the following, but are not limited to this list. Drugs will be reported if they meet the laboratory quality criteria for identification.: Acetaminophen, alprazolam, amitriptyline, amphetamine, atenolol, bupropion, butalbital, carbamazepine, chlorpheniramine, citalopram, clopidogrel, cocaine, cyclobenzaprine, desvenlafaxine, dextromethorphan, diazepam, diphenhydramine, diltiazem, doxepine, doxylamine, fentanyl, fluconazole, fluoxetine, gabapentin, guaifenesin, haloperidol, heroin, hydrocodone, hydroxyzine, ibuprofen, imipramine, ketamine, labetolol, lamotrigine, levetiracetam, lidocaine, metaxalone, methadone, methamphetamine, methocarbamol, metoclopramide, metoprolol, metronidazole, midazolam, mirtazapine, naproxen, nortriptyline, ordanstron, oxcarbazepine, oxycodone, paroxetine, phentermine, phenytoin, promethazine, propofol, propranolol, quetiapine, quinine, rantidine, sertraline, spironolactone, tizanidine, topiramate, tramadol, trazodone, trimethoprim, venlafaxine, verapamil. Mark Smith APRN, DNP LAB URINE ORDERA BLES Final Result [facility] [address] [place] [address] * (ABNORMAL) POCT glucose meter (09/24/2021 9:39 AM EST) POCT Glucose 66(L) 74 - 99 mg/dL 09/24/2021 9:45 AM EST [facility] Comment:Accuracy of a glucos e result obtained from a capillary whole blood specimen relies upon adequate, non-compromised capillary blood flow. If the capillary glucose result is not consistent with the patient's clinical signs and symptoms, glucose testing should be repeated with either an arterial or venous sample on the glucometer or sent to the main labortory for testing. Comment 09/24/2021 9:45 AM EST [facility] Manager Special Events ID Emma Linton 09/24/2021 9:45 AM EST [facility] Device ID [id number] 09/24/2021 9:45 AM EST [facility] Specimen Type POC Capillary 09/24/2021 9:45 AM EST [facility] Blood Capillary blood specimen / Unknown 09/24/2021 9:39 AM EST 09/24/2021 9:45 AM EST Jim Calzada MD LAB POINT OF CARE TE ST DOCKED DEVICE UNSOLICITED RESULTS Final Result Performing Organization Address City/[facility] Co de Phone Number [facility] [address] [place] [address] * Urinalysis Microscopic Examination (09/24/2021 9:27 AM EST) Urine Urine specimen from urinary conduit / Unknown Non-blood Collection / Unknown 09/24/2021 9:27 AM EST 09/24/2021 9:56 AM EST Keaton Melvin LAB URINE ORDERABLES Final Resul t Performing Organization Address City/[facility] de Phone Number [facility] [address] [place] [address] * (ABNORMAL) Vitamin B12 (09/24/2021 9:27 AM EST) Vitamin B12, Serum 1,434(H) 210-1,033 pg/mL 09/24/2021 10:45 AM EST [facility] Blood Venous blood specimen / Unknown Venipuncture / Unknown 09/24/2021 9:27 AM EST 09/24/2021 9:56 AM EST Mark Smith APRN, DNP LAB BLOOD ORDERA BLES Final Result Performing Organization Address City/[facility] Co de Phone Number [facility] [address] [place] [address] * Folate (09/24/2021 9:27 AM EST) Folate, Serum 9.9 >4.8 ng/mL 09/24/2021 10:45 AM EST [facility] Blood Venous blood specimen / Unknown Venipuncture / Unknown 09/24/2021 9:27 AM EST 09/24/2021 9:56 AM EST Mark Smith ASSEMBLY OPERATOR, DNP LAB BLOOD ORDERA BLES Final Result Performing Organization Address City/[facility]/ZIP Co de Phone Number [facility] [address] [place] [address] * Urine Culture (09/24/2021 9:27 AM EST) Culture No growth at 30 hours 09/25/2021 5:55 PM EST [facility] Urine Urine specimen from urinary conduit / Unknown Non-blood Collection / Unknown 09/24/2021 9:27 AM EST 09/24/2021 10:09 AM EST Keaton Melvin LAB MICROBIOLOGY - GENERAL ORDER SIMRAN Final Result Performing Organization Address City/[facility] Co de Phone Number [facility] [address] [place] [address] * (ABNORMAL) Urinalysis with reflex microscopic (09/24/2021 9:27 AM EST) Color, Urine Dark Yellow LAB URINALYSIS - AUTOMATED METHOD 09/24/2021 11:12 AM EST [facility] Clarity, Urine Cloudy LAB URINALYSIS - AUTOMATED METHOD 09/24/2021 11:12 AM EST [facility] Spec [place], Urine 1.021 <=1.005 to >=1.030 LAB URINALYSIS - AUTOMATED METHOD 09/24/2021 11:12 AM EST [facility] pH, Urine 5.0 4.5 to 8 LAB URINALYSIS - AUTOMATED METHOD 09/24/2021 11:12 AM EST [facility] Protein, Urine 30(A) Negative mg/dL LAB URINALYSIS - AUTOMATED METHOD 09/24/2021 11:12 AM EST [facility] Glucose, Urine Negative Negative mg/dL LAB URINALYSIS - AUTOMATED METHOD 09/24/2021 11:12 AM EST [facility] Ketones, Urine Trace(A) Negative mg/dL LAB URINALYSIS - AUTOMATED METHOD 09/24/2021 11:12 AM EST [facility] Blood, Urine Negative Negative LAB URINALYSIS - AUTOMATED METHOD 09/24/2021 11:12 AM EST [facility] Bilirubin, Urine Small(A) Negative LAB URINALYSIS - AUTOMATED METHOD 09/24/2021 11:12 AM EST [facility] Urobilinogen, Urine 1.0 0.2 to 1.0 mg/dL LAB URINALYSIS - AUTOMATED METHOD 09/24/2021 11:12 AM EST [facility] Leukocytes, Urine Trace(A) Negative LAB URINALYSIS - AUTOMATED METHOD 09/24/2021 11:12 AM [facility] Nitrite, Urine Negative Negative LAB URINALYSIS - AUTOMATED METHOD 09/24/2021 11:12 AM EST [facility] RBC, Urine 2 0 to 3 /HPF LAB URINALYSIS - AUTOMATED METHOD 09/24/2021 11:12 AM EST [facility] Comment:This result was prev iously suppressed from the chart. WBC, Urine 6 - 10(A) 0 to 5 /HPF LAB URINALYSIS - AUTOMATED METHOD 09/24/2021 11:12 AM [facility] Comment:This result was prev iously suppressed from the chart. Squamous Epithelial Cells 6 - 10(A) 0 to 5 /HPF LAB URINALYSIS - AUTOMATED METHOD 09/24/2021 11:12 AM EST [facility] Comment:This result was prev iously suppressed from the chart. Hyaline Casts 0 - 8 0 to 8 /LPF LAB URINALYSIS - AUTOMATED METHOD 09/24/2021 11:12 AM [facility] Comment:This result was prev iously suppressed from the chart. Bacteria, Urine Present Negative LAB URINALYSIS - AUTOMATED METHOD 09/24/2021 11:12 AM [facility] Comment:This result was prev iously suppressed from the chart. Renal Tubular Cells 6 - 10 0 /HPF 09/24/2021 11:12 AM [facility] Comment: RTE clumps present This result was previously suppressed from the chart. Transitional Epithelial Cells Present Absent 09/24/2021 11:12 AM [facility] Comment:This result was prev iously suppressed from the chart. Granular Casts 6 - 10 0 /LPF 09/24/2021 11:12 AM [facility] Comment:This result was prev iously suppressed from the chart. Urine Urine specimen from urinary conduit / Unknown Non-blood Collection / Unknown 09/24/2021 9:27 AM EST 09/24/2021 9:56 AM EST Narrative [facility] - 09/24/2021 11:12 AM EST Performed by manual method us Keaton Melvin LAB URINE ORDERABLES Final Resul t Performing Organization Address City/[facility] Co de Phone Number [facility] [address] [place] [address] * POCT glucose meter (09/24/2021 5:49 AM EST) POCT Glucose 76 74 - 99 mg/dL 09/24/2021 5:55 AM EST [facility] Comment:Accuracy of a glucos e result obtained from a capillary whole blood specimen relies upon adequate, non-compromised capillary blood flow. If the capillary glucose result is not consistent with the patient's clinical signs and symptoms, glucose testing should be repeated with either an arterial or venous sample on the glucometer or sent to the main labortory for testing. Comment 09/24/2021 5:55 AM EST [facility] Manager Special Events ID Keaton Nj 5:55 AM EST [facility] Device ID [id number] 09/24/2021 5:55 AM EST [facility] Specimen Type POC Capillary 09/24/2021 5:55 AM EST [facility] Blood Capillary blood specimen / Unknown 09/24/2021 5:49 AM EST 09/24/2021 5:55 AM EST us Edison Asencio MD LAB POINT OF CARE TE ST DOCKED DEVICE UNSOLICITED RESULTS Final Result Performing Organization Address City/[facility] Co de Phone Number [facility] [address] [place] [address] * (ABNORMAL) POCT glucose meter (09/24/2021 4:16 AM EST) POCT Glucose 125(H) 74 - 99 mg/dL 09/24/2021 4:20 AM EST [facility] Comment:Accuracy of a glucos e result obtained from a capillary whole blood specimen relies upon adequate, non-compromised capillary blood flow. If the capillary glucose result is not consistent with the patient's clinical signs and symptoms, glucose testing should be repeated with either an arterial or venous sample on the glucometer or sent to the main labortory for testing. Comment 09/24/2021 4:20 AM EST [facility] Manager Special Events ID Keaton Nj 4:20 AM EST [facility] Device ID [id number] 09/24/2021 4:20 AM EST [facility] Specimen Type POC Capillary 09/24/2021 4:20 AM EST [facility] Blood Capillary blood specimen / Unknown 09/24/2021 4:16 AM EST 09/24/2021 4:20 AM EST Edison Asencio MD LAB POINT OF CARE TE ST DOCKED DEVICE UNSOLICITED RESULTS Final Result Performing Organization Address City/[facility] Co de Phone Number [facility] [address] [place] [address] * (ABNORMAL) POCT glucose meter (09/24/2021 3:45 AM EST) [facility] POCT Glucose 57(L) 74 - 99 mg/dL 09/24/2021 3:50 AM EST [facility] Comment:Accuracy of a glucos e result obtained from a capillary whole blood specimen relies upon adequate, non-compromised capillary blood flow. If the capillary glucose result is not consistent with the patient's clinical signs and symptoms, glucose testing should be repeated with either an arterial or venous sample on the glucometer or sent to the main labortory for testing. Comment 09/24/2021 3:50 AM EST [facility] Manager Special Events ID Linda House 09/24/2021 3:50 AM EST [facility] Device ID [id number] 09/24/2021 3:50 AM EST [facility] Specimen Type POC Capillary 09/24/2021 3:50 AM EST [facility] Blood Capillary blood specimen / Unknown 09/24/2021 3:45 AM EST 09/24/2021 3:50 AM EST Edison Asencio MD LAB POINT OF CARE TE ST DOCKED DEVICE UNSOLICITED RESULTS Final Result Performing Organization Address City/[facility]/ZIP Co de Phone Number [facility] [address] [place] [address] * (ABNORMAL) T4, free (09/24/2021 1:32 AM EST) Free T4, Plasma 0.7(L) 0.8 - 1.7 ng/dL 09/24/2021 8:03 AM EST [facility] Blood Venous blood specimen / Unknown Venipuncture / Unknown 09/24/2021 1:32 AM EST 09/24/2021 1:49 AM EST Narrative [facility] - 09/24/2021 8:03 AM EST Free T4 Trimester Specific Ranges 1st Trimester ??0.9??- 1.50 ng/dL 2nd Trimester ??0.7 - 1.40 ng/dL 3rd Trimester ??0.7??- 1.24 ng/dL Mark Smith APRN, [facility] BLOOD ORDERA BLES Final Result Performing Organization Address [facility] Phone Number [facility] [address] [place] [address] * (ABNORMAL) TSH (09/24/2021 1:32 AM EST) Thyroid Stimulating Hormone, Plasma 9.74(H) 0.40 - 4.20 uIU/mL 09/24/2021 8:03 AM EST [facility] Blood Venous blood specimen / Unknown Venipuncture / Unknown 09/24/2021 1:32 AM EST 09/24/2021 1:49 AM EST Narrative [facility] - 09/24/2021 8:03 AM EST Trimester Specific Ranges ?TSH (??IU/mL) 1st Trimester ??0.1 ??- 3.0 2nd Trimester ??0.19 - 4.06 3rd Trimester ??0.3 ??- 3.7 Mark Smith APRN, [facility] BLOOD ORDERA BLES Final Result Performing Organization Address [facility] Phone Number [facility] [address] [place] [address] * (ABNORMAL) Hepatic function panel (09/24/2021 1:32 AM EST) Conjugated Bilirubin, Plasma 0.6(H) 0.0 - 0.3 mg/dL 09/24/2021 8:03 AM EST [facility] Alkaline Phosphatase, Plasma 108(H) 35 - 104 U/L 09/24/2021 8:03 AM EST [facility] Total Bilirubin, Plasma 1.0 0.2 - 1.1 mg/dL 09/24/2021 8:03 AM EST [facility] Albumin, Plasma 1.5(L) 3.5 - 5.2 g/dL 09/24/2021 8:03 AM EST [facility] Total Protein 5.9(L) 6.3 - 7.9 g/dL 09/24/2021 8:03 AM EST [facility] ALT, Plasma 20 8 - 33 U/L 09/24/2021 8:03 AM EST [facility] AST, Plasma 69(H) 11 - 32 U/L 09/24/2021 8:03 AM EST [facility] Blood Venous blood specimen / Unknown Venipuncture / Unknown 09/24/2021 1:32 AM EST 09/24/2021 1:49 AM EST Mark Smith APRN, [facility] BLOOD ORDERA BLES Final Result Performing Organization Address City/[facility] Co de Phone Number [facility] [address] [place] [address] * (ABNORMAL) C-reactive protein (09/24/2021 1:32 AM EST) CRP, Plasma 73.3(H) <=8.0 mg/L 09/24/2021 8:03 AM EST [facility] Blood Venous blood specimen / Unknown Venipuncture / Unknown 09/24/2021 1:32 AM EST 09/24/2021 1:49 AM EST Narrative [facility] - 09/24/2021 8:03 AM EST This CRP test is appropriate for assessment of infection, systemic inflammation and/or tissue injury. To assess cardiovascular disease risk order high sensitivity CRP (CRPH). Mark Smith APRN, DNP LAB BLOOD ORDERA BLES Final Result Performing Organization Address City/[facility]/ZIP Co de Phone Number [facility] [address] [place] [address] * Phosphorus (09/24/2021 1:32 AM EST) Phosphorus, Plasma 3.3 2.5 - 4.5 mg/dL 09/24/2021 8:03 AM EST [facility] Blood Venous blood specimen / Unknown Venipuncture / Unknown 09/24/2021 1:32 AM EST 09/24/2021 1:49 AM EST Mark Smith APRN, DNP LAB BLOOD ORDERA BLES Final Result Performing Organization Address [facility] Co de Phone Number [facility] [address] [place] [address] * (ABNORMAL) Magnesium (09/24/2021 1:32 AM EST) Magnesium, Plasma 1.8(L) 1.9 - 2.4 mg/dL 09/24/2021 8:03 AM EST [facility] Blood Venous blood specimen / Unknown Venipuncture / Unknown 09/24/2021 1:32 AM EST 09/24/2021 1:49 AM EST Mark Smith APRN, DNP LAB BLOOD ORDERA BLES Final Result Performing Organization Address [facility] Phone Number [facility] [address] [place] [address] * Vancomycin, Peak, Plasma Draw ~ 2 hours after infusion of vancomycin (09/24/2021 1:32 AM EST) Pathologist [facility] Vancomycin, Peak, Plasma 27.0 20.0 - 40.0 ug/mL 09/24/2021 2:10 AM EST [facility] Blood Venous blood specimen / Unknown Venipuncture / Unknown 09/24/2021 1:32 AM EST 09/24/2021 1:49 AM EST Narrative [facility] - 09/24/2021 2:10 AM EST Therapeutic Peak level: ? 20-40ug/mL Supra-therapeutic Peak level: ??>40 ug/mL Zhane J Hook ASSEMBLY OPERATOR LAB BLOOD ORDERABLES Final R esult Performing Organization Address [facility] de Phone Number [facility] [address] [place] [address] * (ABNORMAL) Triglycerides (09/24/2021 1:32 AM EST) Triglycerides, Plasma 178(H) <150 mg/dL 09/24/2021 2:10 AM EST [facility] Comment: Triglyceride Reference Range (age >17 years): Desirable:?? <150 mg/dL Borderline high:?? 150 to 199 mg/dL High:?? 200 to 499 mg/dL Very high:?? >499 mg/dL Increased risk of pancreatitis:?? >1000 mg/dL Blood Venous blood specimen / Unknown Venipuncture / Unknown 09/24/2021 1:32 AM EST 09/24/2021 1:49 AM EST Carmina Nath ASSEMBLY OPERATOR LAB BLOOD ORDERABLES Final Res ult Performing Organization Address [facility] de Phone Number [facility] [address] [place] [address] * (ABNORMAL) CBC W/O Differential (09/24/2021 1:32 AM EST) WBC Count 15.95(H) 3.70 - 10.30 10*3/uL LAB HEMATOLOGY METHOD 09/24/2021 1:51 AM EST [facility] RBC Count 2.41(L) 3.90 - 5.20 10*6/uL LAB HEMATOLOGY METHOD 09/24/2021 1:51 AM EST [facility] HGB 7.7(L) 11.2 - 15.7 g/dL LAB HEMATOLOGY METHOD 09/24/2021 1:51 AM EST [facility] HCT 25.7(L) 34.0 - 45.0 % LAB HEMATOLOGY METHOD 09/24/2021 1:51 AM EST [facility] Platelet Count 373(H) 155 - 369 10*3/uL LAB HEMATOLOGY METHOD 09/24/2021 1:51 AM EST [facility] MCV 107(H) 79 - 98 fL LAB HEMATOLOGY METHOD 09/24/2021 1:51 AM EST [facility] MCH 32.0 26.0 - 32.0 pg LAB HEMATOLOGY METHOD 09/24/2021 1:51 AM EST [facility] MCHC 30.0(L) 30.7 - 35.5 g/dL LAB HEMATOLOGY METHOD 09/24/2021 1:51 AM EST [facility] RDW 28.2(H) 11.5 - 14.5 % LAB HEMATOLOGY METHOD 09/24/2021 1:51 AM EST [facility] MPV 11.5 8.8 - 12.5 fL LAB HEMATOLOGY METHOD 09/24/2021 1:51 AM EST [facility] nRBC 0.0 <=0.0 per 100 WBCs LAB HEMATOLOGY METHOD 09/24/2021 1:51 AM EST [facility] Blood Venous blood specimen / Unknown Venipuncture / Unknown 09/24/2021 1:32 AM EST 09/24/2021 1:49 AM EST us Zhane Valencia ASSEMBLY OPERATOR LAB BLOOD ORDERABLES Final R esult Performing Organization Address City/State/[facility] Co de Phone Number [facility] [address] [place] [address] * (ABNORMAL) Basic Metabolic Panel, Plasma (09/24/2021 1:32 AM EST) Glucose, Plasma 73(L) 74 - 99 mg/dL 09/24/2021 2:10 AM EST [facility] BUN, Plasma 32(H) 7 - 21 mg/dL 09/24/2021 2:10 AM EST [facility] Creatinine, Plasma 0.80 0.60 - 1.10 mg/dL 09/24/2021 2:10 AM EST [facility] BUN/Creatinine Ratio 40 09/24/2021 2:10 AM EST [facility] Sodium, Plasma 147(H) 136 - 145 mmol/L 09/24/2021 2:10 AM EST [facility] Potassium, Plasma 3.4(L) 3.7 - 4.8 mmol/L 09/24/2021 2:10 AM EST [facility] Chloride, Plasma 109(H) 97 - 107 mmol/L 09/24/2021 2:10 AM EST [facility] CO2, Plasma 30(H) 22 - 29 mmol/L 09/24/2021 2:10 AM EST [facility] Anion Gap 8 6 - 16 mmol/L 09/24/2021 2:10 AM EST [facility] Total Calcium, Plasma 8.1(L) 8.9 - 10.2 mg/dL 09/24/2021 2:10 AM EST [facility] eGFR >60 >60 mL/min/1.7 3m*2 09/24/2021 2:10 AM EST [facility] Comment:eGFR = estimated GFR ; eGFR units = mL/min/1.73 sq meters Chronic Kidney Disease is considered if eGFR <60 mL/min/1.73 sq meters Kidney failure is considered if eGFR is <15 mL/min/1.73 sq meters. eGFR assumes steady state plasma creatinine concentration; not applicable if renal function is rapidly changing or patient is on dialysis. eGFR, if AFR/AM >60 >60 mL/min/1.7 3m*2 09/24/2021 2:10 AM EST [facility] Comment:eGFR = estimated GFR ; eGFR units = mL/min/1.73 sq meters Chronic Kidney Disease is considered if eGFR <60 mL/min/1.73 sq meters Kidney failure is considered if eGFR is <15 mL/min/1.73 sq meters. eGFR assumes steady state plasma creatinine concentration; not applicable if renal function is rapidly changing or patient is on dialysis. Blood Venous blood specimen / Unknown Venipuncture / Unknown 09/24/2021 1:32 AM EST 09/24/2021 1:49 AM EST us Zhane Valencia ASSEMBLY OPERATOR LAB BLOOD ORDERABLES Final R esult Performing Organization Address City/State/[facility] Co de Phone Number [facility] [address] [place] [address] * POCT glucose meter (09/24/2021 12:06 AM EST) POCT Glucose 90 74 - 99 mg/dL 09/24/2021 12:10 AM EST [facility] Comment:Accuracy of a glucos e result obtained from a capillary whole blood specimen relies upon adequate, non-compromised capillary blood flow. If the capillary glucose result is not consistent with the patient's clinical signs and symptoms, glucose testing should be repeated with either an arterial or venous sample on the glucometer or sent to the main labortory for testing. Comment 09/24/2021 12:10 AM EST [facility] Manager Special Events ID Miriam Milner 09/24/19 12:10 AM EST [facility] LAB Device ID [id number] 09/24/2021 12:10 AM EST [facility] Specimen Type POC Capillary 09/24/2021 12:10 AM EST [facility] Blood Capillary blood specimen / Unknown 09/24/2021 12:06 AM EST 09/24/2021 12:10 AM EST us Loren Dietrich MD LAB POINT OF CARE TE ST DOCKED DEVICE UNSOLICITED RESULTS Final Result Performing Organization Address City/[facility] Co de Phone Number [facility] [address] [place] [address] * (ABNORMAL) POCT glucose meter (09/23/2021 11:34 PM EST) [facility] POCT Glucose 69(L) 74 - 99 mg/dL 09/23/2021 11:40 PM EST [facility] LAB Comment:Accuracy of a glucos e result obtained from a capillary whole blood specimen relies upon adequate, non-compromised capillary blood flow. If the capillary glucose result is not consistent with the patient's clinical signs and symptoms, glucose testing should be repeated with either an arterial or venous sample on the glucometer or sent to the main labortory for testing. Comment 09/23/2021 11:40 PM EST [facility]ALTHCARE LAB Manager Special Events ID Osmar Swanson Jr. 09/23/2021 11:40 PM EST HEALTH[facility]ARE LAB Device ID [id number] 09/23/2021 11:40 PM EST [facility] LAB Specimen Type POC Capillary 09/23/2021 11:40 PM EST [facility] Blood Capillary blood specimen / Unknown 09/23/2021 11:34 PM EST 09/23/2021 11:40 PM EST us Loren Dietrich MD LAB POINT OF CARE TE ST DOCKED DEVICE UNSOLICITED RESULTS Final Result Performing Organization Address City/[facility]/ZIP Co de Phone Number [facility] [address] [place] [address] * (ABNORMAL) SARS-CoV-2 COVID-19/Influenza A,B (09/23/2021 11:05 PM EST) [facility] SARS CoV-2/COVID-1 9 RNA PCR Result Detected(A) Not Detected 09/23/2021 11:54 PM EST [facility] Influenza A Virus PCR Result Not Detected Not Detected 09/23/2021 11:54 PM EST [facility] Influenza B Virus PCR Result Not Detected Not Detected 09/23/2021 11:54 PM EST [facility] Swab Nasopharyngeal structure / Unknown Non-blood Collection / Unknown 09/23/2021 11:05 PM EST 09/23/2021 11:14 PM EST Narrative [facility]ALTHCARE LAB - 09/23/2021 11:54 PM EST This test was performed using the Fred SARS-CoV-2 & Influenza A/B assay on the Tr Guadalupe analyzer, an RT-PCR based method. This assay is for in vitro diagnostic use under FDA Emergency Use Authorization only. Negative results do not preclude infection with the SARS-CoV-2 virus and should not be the sole basis of a patient treatment/management or public health decision. Follow up testing should be performed according to the current CDC recommendations. The limit of detection (LoD) for this assay is 12 cp/mL SARS-CoV-2 RNA. Use of the Fred SARS-CoV-2 & Influenza A/B assay in an asymptomatic screening??population is intended to be used as?? part of an infection control plan that may include additional preventative measures, such as a predefined serial testing plan or directed testing of high-risk individuals. Negative results should be considered presumptive and do not preclude current or future infection obtained through community transmission or other exposures. Negative results must be considered in the context of an individual's recent exposures, history, presence of clinical signs and symptoms consistent with COVID-19. us Kemar Membreno APRN LAB MICROBIOLOGY - GENERAL ORDERABLES Final Result [facility] [address] [place] [address] * [place] CRITICAL CARE, E/M 30-74 MINUTES (09/23/2021 9:34 PM EST) Narrative Carmina Nath APRN - 09/23/2021 9:34 PM EST Carmina Nath APRN ? 09/23/2021 ??9:52 PM Critical Care Performed by: Carmina Nath APRN Authorized by: Carmina Nath APRN Critical care provider statement: ??Critical care time (minutes): ??65 ??Critical care time was exclusive of: ??Separately billable procedures and treating other patients ??Critical care was time spent personally by me on the following activities: ??Ordering and performing treatments and interventions, ordering and review of laboratory studies, ordering and review of radiographic studies, review of old charts, ventilator management, examination of patient and evaluation of patient's response to treatment ??I assumed subsequent critical care for this patient from a provider in my division, on the same day: no ?? us Carmina Nath APRN IN CLINIC/BEDSIDE ORDERABLES F inal Result * CT Head wo IV Contrast (09/23/2021 8:51 PM EST) Anatomical Region Laterality Modality Head Computed Tomogra phy Impressions 09/23/2021 9:31 PM EST 1.No acute intracranial abnormality. 2.Mild to moderate diffuse brain volume loss which has progressed compared to the prior CT and is greater than expected for age. CRITICAL RESULT: ?? No. COMMUNICATION: Per this written report. Signed by Pete Herrera on ??09/23/2021 9:31 PM Narrative 09/23/2021 9:31 PM EST Exam/Procedure: CT HEAD WO IV CONTRAST ordered by ZHANE VALENCIA, [id number] CLINICAL INDICATION: Mental status change, unknown cause TECHNIQUE: ?? Spiral axial CT images of the head were obtained without contrast administration. Total DLP (Dose-Length Product): 2093. Please note: The reported value represents the total of one or more individual components during the CT acquisition on this date and at this time, and as such, the same value may appear in more than one CT report depending on the interpreting/reporting physicians. COMPARISON: Head CT from December 03, 2014 FINDINGS: Diagnostic Quality: Adequate. Mild to moderate diffuse brain volume loss which has progressed compared to the prior CT and is greater than expected for age. There is no acute large cortical infarct, intracranial hemorrhage or large mass on this noncontrast study. Soft Tissues: No significant soft tissue swelling is present. Skull: There are no calvarial destructive lesions or fractures. Sinuses and Mastoids: Near complete opacification of the left sphenoid sinus. Mucosal thickening in the right sphenoid and bilateral ethmoid sinuses as well as left maxillary sinus. Partial opacification of the left mastoid air cells. These findings are nonspecific in an intubated patient. Procedure Note Pete Herrera MD - 09/23/2021 Exam/Procedure: CT HEAD WO IV CONTRAST ordered by ZHANE VALENCIA, [id number] CLINICAL INDICATION: Mental status change, unknown cause TECHNIQUE: Spiral axial CT images of the head were obtained without contrastadministration. Total DLP (Dose-Length Product): 2093. Please note: The reported valuerepresents the total of one or more individual components during the CTacquisition on this date and at this time, and as such, the same value mayappear in more than one CT report depending on the interpreting/reportingphysicians. COMPARISON: Head CT from December 03, 2014 FINDINGS: Diagnostic Quality: Adequate. Mild to moderate diffuse brain volume loss which has progressed comparedto the prior CT and is greater than expected for age. There is no acute large cortical infarct, intracranial hemorrhage or largemass on this noncontrast study. Soft Tissues: No significant soft tissue swelling is present. Skull: There are no calvarial destructive lesions or fractures. Sinuses and Mastoids: Near complete opacification of the left sphenoidsinus. Mucosal thickening in the right sphenoid and bilateral ethmoidsinuses as well as left maxillary sinus. Partial opacification of the leftmastoid air cells. These findings are nonspecific in an intubatedpatient. IMPRESSION: 1.No acute intracranial abnormality. 2.Mild to moderate diffuse brain volume loss which has progressed comparedto the prior CT and is greater than expected for age. CRITICAL RESULT: No. COMMUNICATION: Per this written report. Signed by Pete Herrera on 09/23/2021 9:31 PM us Zhane Valencia ASSEMBLY OPERATOR IMG CT PROCEDURES Final Resu lt * CT Abdomen Pelvis wo IV Contrast (09/23/2021 8:51 PM EST) Anatomical Region Laterality Modality Abdomen, Pelvis Computed Tomogra phy Impressions 09/23/2021 9:32 PM EST Chest: Small bilateral pleural effusions, left greater than right, with complete left lower lobe atelectasis. Groundglass opacities throughout the bilateral lungs with decreased consolidation. Abdomen/Pelvis: Hepatic steatosis with morphologic changes of the liver suggesting cirrhosis. Small volume free fluid in the pelvis. No organized fluid collection or abscess. CRITICAL RESULT: ?? No. COMMUNICATION: Per this written report. Signed by Katalina Hauser on ??09/23/2021 9:32 PM Narrative 09/23/2021 9:32 PM EST Exam/Procedure: CT CHEST WO IV CONTRAST ordered by ZHANE VALENCIA, [id number] CLINICAL INDICATION: Respiratory failure; Sepsis TECHNIQUE: Multiple axial CT images were obtained from thoracic inlet through pubic symphysis without the administration of IV contrast. Reformatted images of the abdomen and pelvis in the coronal and sagittal planes were generated from the axial data set to facilitate diagnostic accuracy. Total DLP (Dose-Length Product): 2092.71 mGy.cm. Please note: The reported value represents the total of one or more individual components during the CT acquisition on this date and at this time, and as such, the same value may appear in more than one CT report depending on the interpreting/reporting physicians. COMPARISON: Outside CT chest, abdomen and pelvis September 22, 2019 FINDINGS: Chest: Lymph Nodes and Mediastinum: No lymphadenopathy by CT size criteria. Calcified mediastinal lymph nodes. No mediastinal mass lesions. No suspicious thyroid findings. Cardiovascular: The heart and thoracic great vessels are normal in caliber. Lungs and Pleura: Endotracheal tube terminates above the raghavendra. Small bilateral pleural effusions, left more than right. Complete left lower lobe atelectasis. Ground glass opacities throughout the bilateral lungs similar in distribution to comparison with decreased consolidation. Musculoskeletal and Body Wall: No clearly aggressive bone lesions. Abdomen/Pelvis: Solid Abdominal Organs: Diffuse hepatic steatosis. Morphologic changes of the liver suggesting underlying parenchymal disease. No radiopaque gallstones. No biliary ductal dilatation. Unremarkable spleen, pancreas and bilateral adrenal glands. Punctate nonobstructing bilateral renal calculi. No hydronephrosis. GI Tract/Mesentery/Peritoneum: Nasogastric tube terminates in the mid stomach. Enteric feeding tube terminates near the pylorus. The large and small bowel appear normal in caliber. Mild colonic diverticulosis. Mesenteric edema. Pelvic Viscera: Bladder is decompressed with Morales catheter. Unremarkable uterus and adnexa. Lymph Nodes/Vasculature: No lymphadenopathy by CT size criteria. The aortoiliac vasculature is normal in caliber. Free Fluid: Small volume free fluid in the pelvis. Musculoskeletal and Body Wall: Mild body wall edema. Left anterior abdominal subcutaneous gas likely from prior injection. Postsurgical changes of the midline abdomen. Procedure Note Katalina Hauser MD - 09/23/2021 Exam/Procedure: CT CHEST WO IV CONTRAST ordered by ZHANE VALENCIA,[id number] CLINICAL INDICATION: Respiratory failure; Sepsis TECHNIQUE: Multiple axial CT images were obtained from thoracic inlet through pubicsymphysis without the administration of IV contrast. Reformatted images ofthe abdomen and pelvis in the coronal and sagittal planes were generatedfrom the axial data set to facilitate diagnostic accuracy. Total DLP (Dose-Length Product): 2092.71 mGy.cm. Please note: The reportedvalue represents the total of one or more individual components during theCT acquisition on this date and at this time, and as such, the same valuemay appear in more than one CT report depending on theinterpreting/reporting physicians. COMPARISON: Outside CT chest, abdomen and pelvis September 22, 2019 FINDINGS: Chest: Lymph Nodes and Mediastinum: No lymphadenopathy by CT size criteria.Calcified mediastinal lymph nodes. No mediastinal mass lesions. Nosuspicious thyroid findings. Cardiovascular: The heart and thoracic great vessels are normal incaliber. Lungs and Pleura: Endotracheal tube terminates above the raghavendra. Smallbilateral pleural effusions, left more than right. Complete left lowerlobe atelectasis. Ground glass opacities throughout the bilateral lungssimilar in distribution to comparison with decreased consolidation. Musculoskeletal and Body Wall: No clearly aggressive bone lesions. Abdomen/Pelvis: Solid Abdominal Organs: Diffuse hepatic steatosis. Morphologic changes ofthe liver suggesting underlying parenchymal disease. No radiopaquegallstones. No biliary ductal dilatation. Unremarkable spleen, pancreasand bilateral adrenal glands. Punctate nonobstructing bilateral renalcalculi. No hydronephrosis. GI Tract/Mesentery/Peritoneum: Nasogastric tube terminates in the midstomach. Enteric feeding tube terminates near the pylorus. The large andsmall bowel appear normal in caliber. Mild colonic diverticulosis.Mesenteric edema. Pelvic Viscera: Bladder is decompressed with Morales catheter. Unremarkableuterus and adnexa. Lymph Nodes/Vasculature: No lymphadenopathy by CT size criteria. Theaortoiliac vasculature is normal in caliber. Free Fluid: Small volume free fluid in the pelvis. Musculoskeletal and Body Wall: Mild body wall edema. Left anteriorabdominal subcutaneous gas likely from prior injection. Postsurgicalchanges of the midline abdomen. IMPRESSION: Chest: Small bilateral pleural effusions, left greater than right, withcomplete left lower lobe atelectasis. Groundglass opacities throughout thebilateral lungs with decreased consolidation. Abdomen/Pelvis: Hepatic steatosis with morphologic changes of the liversuggesting cirrhosis. Small volume free fluid in the pelvis. No organized fluid collection orabscess. CRITICAL RESULT: No. COMMUNICATION: Per this written report. Signed by Katalina Hauser on 09/23/2021 9:32 PM us Zhane Valencia ASSEMBLY OPERATOR IMG CT PROCEDURES Final Resu lt * CT Chest wo IV Contrast (09/23/2021 8:51 PM EST) Anatomical Region Laterality Modality Chest Computed Tomogra phy Impressions 09/23/2021 9:32 PM EST Chest: Small bilateral pleural effusions, left greater than right, with complete left lower lobe atelectasis. Groundglass opacities throughout the bilateral lungs with decreased consolidation. Abdomen/Pelvis: Hepatic steatosis with morphologic changes of the liver suggesting cirrhosis. Small volume free fluid in the pelvis. No organized fluid collection or abscess. CRITICAL RESULT: ?? No. COMMUNICATION: Per this written report. Signed by Katalina Hauser on ??09/23/2021 9:32 PM Narrative 09/23/2021 9:32 PM EST Exam/Procedure: CT CHEST WO IV CONTRAST ordered by ZHANE VALENCIA, [id number] CLINICAL INDICATION: Respiratory failure; Sepsis TECHNIQUE: Multiple axial CT images were obtained from thoracic inlet through pubic symphysis without the administration of IV contrast. Reformatted images of the abdomen and pelvis in the coronal and sagittal planes were generated from the axial data set to facilitate diagnostic accuracy. Total DLP (Dose-Length Product): 2092.71 mGy.cm. Please note: The reported value represents the total of one or more individual components during the CT acquisition on this date and at this time, and as such, the same value may appear in more than one CT report depending on the interpreting/reporting physicians. COMPARISON: Outside CT chest, abdomen and pelvis September 22, 2019 FINDINGS: Chest: Lymph Nodes and Mediastinum: No lymphadenopathy by CT size criteria. Calcified mediastinal lymph nodes. No mediastinal mass lesions. No suspicious thyroid findings. Cardiovascular: The heart and thoracic great vessels are normal in caliber. Lungs and Pleura: Endotracheal tube terminates above the raghavendra. Small bilateral pleural effusions, left more than right. Complete left lower lobe atelectasis. Ground glass opacities throughout the bilateral lungs similar in distribution to comparison with decreased consolidation. Musculoskeletal and Body Wall: No clearly aggressive bone lesions. Abdomen/Pelvis: Solid Abdominal Organs: Diffuse hepatic steatosis. Morphologic changes of the liver suggesting underlying parenchymal disease. No radiopaque gallstones. No biliary ductal dilatation. Unremarkable spleen, pancreas and bilateral adrenal glands. Punctate nonobstructing bilateral renal calculi. No hydronephrosis. GI Tract/Mesentery/Peritoneum: Nasogastric tube terminates in the mid stomach. Enteric feeding tube terminates near the pylorus. The large and small bowel appear normal in caliber. Mild colonic diverticulosis. Mesenteric edema. Pelvic Viscera: Bladder is decompressed with Morales catheter. Unremarkable uterus and adnexa. Lymph Nodes/Vasculature: No lymphadenopathy by CT size criteria. The aortoiliac vasculature is normal in caliber. Free Fluid: Small volume free fluid in the pelvis. Musculoskeletal and Body Wall: Mild body wall edema. Left anterior abdominal subcutaneous gas likely from prior injection. Postsurgical changes of the midline abdomen. Procedure Note Katalina Hauser MD - 09/23/2021 Exam/Procedure: CT CHEST WO IV CONTRAST ordered by ZHANE VALENCIA,[id number] CLINICAL INDICATION: Respiratory failure; Sepsis TECHNIQUE: Multiple axial CT images were obtained from thoracic inlet through pubicsymphysis without the administration of IV contrast. Reformatted images ofthe abdomen and pelvis in the coronal and sagittal planes were generatedfrom the axial data set to facilitate diagnostic accuracy. Total DLP (Dose-Length Product): 2092.71 mGy.cm. Please note: The reportedvalue represents the total of one or more individual components during theCT acquisition on this date and at this time, and as such, the same valuemay appear in more than one CT report depending on theinterpreting/reporting physicians. COMPARISON: Outside CT chest, abdomen and pelvis September 22, 2019 FINDINGS: Chest: Lymph Nodes and Mediastinum: No lymphadenopathy by CT size criteria.Calcified mediastinal lymph nodes. No mediastinal mass lesions. Nosuspicious thyroid findings. Cardiovascular: The heart and thoracic great vessels are normal incaliber. Lungs and Pleura: Endotracheal tube terminates above the raghavendra. Smallbilateral pleural effusions, left more than right. Complete left lowerlobe atelectasis. Ground glass opacities throughout the bilateral lungssimilar in distribution to comparison with decreased consolidation. Musculoskeletal and Body Wall: No clearly aggressive bone lesions. Abdomen/Pelvis: Solid Abdominal Organs: Diffuse hepatic steatosis. Morphologic changes ofthe liver suggesting underlying parenchymal disease. No radiopaquegallstones. No biliary ductal dilatation. Unremarkable spleen, pancreasand bilateral adrenal glands. Punctate nonobstructing bilateral renalcalculi. No hydronephrosis. GI Tract/Mesentery/Peritoneum: Nasogastric tube terminates in the midstomach. Enteric feeding tube terminates near the pylorus. The large andsmall bowel appear normal in caliber. Mild colonic diverticulosis.Mesenteric edema. Pelvic Viscera: Bladder is decompressed with Morales catheter. Unremarkableuterus and adnexa. Lymph Nodes/Vasculature: No lymphadenopathy by CT size criteria. Theaortoiliac vasculature is normal in caliber. Free Fluid: Small volume free fluid in the pelvis. Musculoskeletal and Body Wall: Mild body wall edema. Left anteriorabdominal subcutaneous gas likely from prior injection. Postsurgicalchanges of the midline abdomen. IMPRESSION: Chest: Small bilateral pleural effusions, left greater than right, withcomplete left lower lobe atelectasis. Groundglass opacities throughout thebilateral lungs with decreased consolidation. Abdomen/Pelvis: Hepatic steatosis with morphologic changes of the liversuggesting cirrhosis. Small volume free fluid in the pelvis. No organized fluid collection orabscess. CRITICAL RESULT: No. COMMUNICATION: Per this written report. Signed by Katalina Hauser on 09/23/2021 9:32 PM us Zhane Valencia ASSEMBLY OPERATOR IMG CT PROCEDURES Final Resu lt * ECG - RT (09/23/2021 7:46 PM EST) EKG DIAGNOSIS CLASS Abnormal MUSE ECG Ventricular Rate 86 BPM MUSE ECG Atrial Rate 86 BPM MUSE ECG OH Interval 128 ms MUSE ECG QRSD Interval 68 ms MUSE ECG QT Interval 386 ms MUSE ECG QTC Interval 461 ms MUSE ECG P [place] 24 degrees MUSE ECG R [place] 20 degrees MUSE ECG T Wave [place] 35 degrees MUSE ECG Diagnosis Sinus rhythm MUSE ECG Diagnosis with occasional MUSE ECG Diagnosis premature ventricular complexes MUSE ECG Diagnosis Possible MUSE ECG Diagnosis Left atrial enlargement MUSE ECG Diagnosis Prolonged QT MUSE ECG Diagnosis Abnormal ECG MUSE ECG Diagnosis Confirmed by Ismael Zapata ([id number]) on 09/24/2021 11:18:59 AM MUSE ECG 09/23/2021 7:46 PM EST 09/24/2021 11:18 AM EST Zhane Valencia ASSEMBLY OPERATOR ECG ORDERABLES Final Result Performing Organization Address [facility] de Phone Number MUSE ECG * Lactate, venous (09/23/2021 6:31 PM EST) Lactate, Venous, Whole Blood 0.6 0.5 - 2.2 mmol/L LAB HEMATOLOGY METHOD 09/23/2021 6:42 PM EST [facility] Blood Venous blood specimen / Unknown Venipuncture / Unknown 09/23/2021 6:31 PM EST 09/23/2021 6:39 PM EST Zhane Valencia ASSEMBLY OPERATOR LAB BLOOD ORDERABLES Final R esult Performing Organization Address [facility] de Phone Number [facility] [address] [place] [address] * Urinalysis Microscopic Examination (09/23/2021 6:27 PM EST) Urine Urine specimen obtained by clean catch procedure / Unknown Non-blood Collection / Unknown 09/23/2021 6:27 PM EST 09/23/2021 6:39 PM EST Zhane Valencia APRN LAB URINE ORDERABLES Final R esult Performing Organization Address [facility] de Phone Number [facility] [address] [place] [address] * , urine (09/23/2021 6:27 PM EST) Urine Negative Negative 6:52 PM EST [facility] Comment:False negative resul ts have been reported in some women after 7 weeks of gestation. Plasma hCG testing is recommended if clinically indicated. Urine Spec Grav 1.017 <=1.005 to >=1.030 09/23/2021 6:52 PM EST [facility] Urine Urine specimen obtained by clean catch procedure / Unknown Non-blood Collection / Unknown 09/23/2021 6:27 PM EST 09/23/2021 6:39 PM EST us Zahne Valencia ASSEMBLY OPERATOR LAB URINE ORDERABLES Final R esult [facility] [address] [place] [address] * (ABNORMAL) Urinalysis with reflex microscopic (09/23/2021 6:27 PM EST) Color, Urine Dark Yellow LAB URINALYSIS - AUTOMATED METHOD 09/23/2021 7:37 PM EST [facility] Clarity, Urine Cloudy LAB URINALYSIS - AUTOMATED METHOD 09/23/2021 7:37 PM EST [facility] Spec [place], Urine 1.019 <=1.005 to >=1.030 LAB URINALYSIS - AUTOMATED METHOD 09/23/2021 7:37 PM EST [facility] pH, Urine 5.5 4.5 to 8 LAB URINALYSIS - AUTOMATED METHOD 09/23/2021 7:37 PM EST [facility] Protein, Urine 30(A) Negative mg/dL LAB URINALYSIS - AUTOMATED METHOD 09/23/2021 7:37 PM EST [facility] Glucose, Urine Negative Negative mg/dL LAB URINALYSIS - AUTOMATED METHOD 09/23/2021 7:37 PM EST [facility] Ketones, Urine Negative Negative mg/dL LAB URINALYSIS - AUTOMATED METHOD 09/23/2021 7:37 PM EST [facility] Blood, Urine Negative Negative LAB URINALYSIS - AUTOMATED METHOD 09/23/2021 7:37 PM EST [facility] Bilirubin, Urine Small(A) Negative LAB URINALYSIS - AUTOMATED METHOD 09/23/2021 7:37 PM EST [facility] Urobilinogen, Urine 0.2 0.2 to 1.0 mg/dL LAB URINALYSIS - AUTOMATED METHOD 09/23/2021 7:37 PM EST [facility] Leukocytes, Urine Trace(A) Negative LAB URINALYSIS - AUTOMATED METHOD 09/23/2021 7:37 PM EST [facility] Nitrite, Urine Negative Negative LAB URINALYSIS - AUTOMATED METHOD 09/23/2021 7:37 PM EST [facility] RBC, Urine <1 0 to 3 /HPF 09/23/2021 7:37 PM EST [facility] Comment:This result was prev iously suppressed from the chart. WBC, Urine 6 - 10(A) 0 to 5 /HPF 09/23/2021 7:37 PM EST [facility] Comment:This result was prev iously suppressed from the chart. Squamous Epithelial Cells 6 - 10(A) 0 to 5 /HPF 09/23/2021 7:37 PM EST [facility] Comment:This result was prev iously suppressed from the chart. Hyaline Casts 0 - 8 0 to 8 /LPF 09/23/2021 7:37 PM EST [facility] Comment:This result was prev iously suppressed from the chart. Bacteria, Urine Present Negative 7:37 PM EST [facility] Comment:This result was prev iously suppressed from the chart. Transitional Epithelial Cells Present Absent 09/23/2021 7:37 PM EST [facility] Comment:This result was prev iously suppressed from the chart. Urine Urine specimen obtained by clean catch procedure / Unknown Non-blood Collection / Unknown 09/23/2021 6:27 PM EST 09/23/2021 6:39 PM EST us Zhane Valencia ASSEMBLY OPERATOR LAB URINE ORDERABLES Final R esult [facility] [address] [place] [address] * Legionella pneumophilia Urinary Antigen (09/23/2021 6:27 PM EST) Legionella pneumophila serogroup 1 Antigen Result (Urine) Negative Negative 09/24/2021 12:04 PM EST [facility] Urine Urine specimen obtained by clean catch procedure / Unknown Non-blood Collection / Unknown 09/23/2021 6:27 PM EST 09/23/2021 6:39 PM EST [facility] - GENERAL O RDERABLES Final Result Performing Organization Address [facility] de Phone Number [facility] [address] [place] [address] * Streptococcus pneumoniae Urinary Antigen (09/23/2021 6:27 PM EST) Streptococcus pneumoniae Antigen Result (Urine) Negative Negative 09/24/2021 8:15 AM EST [facility] Urine Urine specimen obtained by clean catch procedure / Unknown Non-blood Collection / Unknown 09/23/2021 6:27 PM EST 09/23/2021 6:39 PM EST Zhane Valencia ASSEMBLY OPERATOR LAB MICROBIOLOGY - GENERAL O RDERABLES Final Result Performing Organization Address [facility] Phone Number [facility] [address] [place] [address] * Blood culture, peripheral #1 (09/23/2021 6:07 PM EST) Culture No growth at day 5 MARK 09/28/2021 9:01 PM EST [facility] Blood Structure of right hand / Unknown Venipuncture / Unknown 09/23/2021 6:07 PM EST 09/23/2021 6:17 PM EST Zhane Ballard [facility] LAB MICROBIOLOGY - GENERAL O RDERABLES Final Result Performing Organization Address [facility] Phone Number [facility] [address] [place] [address] * Beta-glucan, BAL (Fungitel) (09/23/2021 5:56 PM EST) BETA GLUCAN BAL >500 pg/mL 1:35 PM EST [facility] ([facility]JUAQU[facility]) Comment: The performance characteristics of the Fungitell assay in BAL have been determined by [employer] [facility]; there are no established criteria for the interpretation of Fungitell results from BAL fluid. ?? Research studies have evaluated the use of the Fungitell assay in BAL in both immunocompromised patients (Mycopathologia (2013) 175:33-41) and acute eosinophilic pneumonia (Chest (2003) 123:7187-1912). The Fungitell Beta-D Glucan assay detects (1,3)- Uhsn-Q-jmjdey from the following pathogens: Nicanor spp., Acremonium, Aspergillus spp., Coccidioides immitis, Fusarium spp., Histoplasma capsulatum, Trichosporon spp., Sporothrix schenckii, Saccharomyces cerevisiae, and Pneumocystis jiroveci. The Fungitell Beta-D Glucan assay does not detect certain fungal species such as the genus Cryptococcus, which produces very low levels of (1,3)- Wvmj-K-nqedcd, nor the Zygomycetes, such as Absidia, Mucor, and Rhizopus, which are not known to produce (1,3)- Yqoy-V-pwhale. Studies indicate Blastomyces dermatitidis is usually not detected due to little (1,3)- Emhg-G-eptgyx produced in the yeast phase. If sample result is greater than 500 pg/mL, physician may order a titer of the sample. Please contact [facility] if you would like to order a retest of this sample to obtain an actual value. Samples are held for 1 week after initial testing date. Validation of bronchial specimens was performed on undiluted samples. Any dilution that occurs during processing before receipt at [facility] will affect the quantitation Testing Performed at: [facility] [address] [place] [address] [employer] Machine: Addy Bennett Ph.D., BCLD (ABB) CLIA#: [id number] Phone: Bronchoalveolar lavage fluid specimen (specimen) Bronchoalveolar lavage fluid specimen / Unknown 09/23/2021 5:56 PM EST 09/23/2021 6:16 PM EST Narrative CLARA (BOGDAN) - 09/27/2021 1:35 PM EST Release to patient in MyChart->Immediate us Zhane Valencia ASSEMBLY OPERATOR LAB BODY FLUIDS AND STOOLS O RDERABLES Final Result CLARA LAROSE) * (ABNORMAL) POCT arterial blood gas gem (09/23/2021 5:49 PM EST) pH, Arterial 7.53(H) 7.35 - 7.45 09/23/2021 5:55 PM EST [facility] pCO2, Arterial 39 32 - 45 mm Hg 09/23/2021 5:55 PM EST [facility] pO2, Arterial 85 83 - 108 mm Hg 09/23/2021 5:55 PM EST [facility] SO2, Arterial 98 94 - 98 % 09/23/2021 5:55 PM EST [facility] FIO2 50.0 % 09/23/2021 5:55 PM EST [facility] Base Excess, Arterial 9.1(H) -2 - 3 mmol/L 09/23/2021 5:55 PM EST [facility] HCO3, Arterial 32.6(H) 22 - 26 mmol/L 09/23/2021 5:55 PM EST [facility] Total Hemoglobin, Arterial, Whole Blood 7.7(L) 11.2 - 15.7 g/dL 09/23/2021 5:55 PM EST [facility] Hematocrit, Arterial 23.0(L) 34.0 - 45.0 % 09/23/2021 5:55 PM EST [facility] Sodium, Arterial 148(H) 136 - 145 mmol/L 09/23/2021 5:55 PM EST [facility] Potassium, Arterial 3.6 3.6 - 4.9 mmol/L 09/23/2021 5:55 PM EST [facility] Chloride, Whole Blood 112(H) 97 - 107 mmol/L 09/23/2021 5:55 PM EST [facility] Glucose, Arterial 107(H) 74 - 99 mg/dL 09/23/2021 5:55 PM EST [facility] Ionized Calcium, Arterial 4.8 4.6 - 5.1 mg/dL 09/23/2021 5:55 PM EST [facility] Lactate, Arterial 1.0 0.5 - 1.6 mmol/L 09/23/2021 5:55 PM EST [facility] Body Temperature 37.0 Celsius 09/23/2021 5:55 PM EST [facility] pH, Temp Corrected, Arterial 7.53(H) 7.35 - 7.45 09/23/2021 5:55 PM EST [facility] pCO2, Temp Corrected, Arterial 39 32 - 45 mm Hg 09/23/2021 5:55 PM EST [facility] pO2, Temp Corrected, Arterial 85 83 - 108 mm Hg 09/23/2021 5:55 PM EST [facility] Manager Special Events ID YOLIS GUNN 09/23/2021 5:55 PM EST [facility] Comment:Performed at [facility] Arterial blood specimen (specimen) Whole blood specimen / Unknown 09/23/2021 5:49 PM EST 09/23/2021 5:55 PM EST us Loren Dietrich MD LAB POINT OF CARE TE ST DOCKED DEVICE UNSOLICITED RESULTS Final Result [facility] [address] [place] [address] * XR Chest 1 View - bedside (09/23/2021 5:42 PM EST) Anatomical Region Laterality Modality Chest Digital Radiogra phy Impressions 09/23/2021 6:09 PM EST Endotracheal tube terminates 3 cm above the raghavendra. Bilateral airspace opacities concerning for infection. CRITICAL RESULT: ?? No. COMMUNICATION: Per this written report. Signed by Katalina Hauser on ??09/23/2021 6:09 PM Narrative 09/23/2021 6:09 PM EST Exam/Procedure: XR CHEST 1 VIEW ordered by ZHANE VALENCIA [id number] CLINICAL INDICATION: Intubation TECHNIQUE: XR CHEST 1 VIEW COMPARISON: December 03, 2014 FINDINGS: Endotracheal tube terminates 3 cm above the raghavendra. Enteric feeding tube and nasogastric tube terminates below the diaphragm. Bilateral perihilar and basilar opacities. No pleural effusion. No pneumothorax. Cardiac silhouette is within normal limits. Procedure Note Katalina Hauser MD - 09/23/2021 Exam/Procedure: XR CHEST 1 VIEW ordered by ZHANE VALENCIA [id number] CLINICAL INDICATION: Intubation TECHNIQUE: XR CHEST 1 VIEW COMPARISON: December 03, 2014 FINDINGS: Endotracheal tube terminates 3 cm above the raghavendra. Enteric feeding tubeand nasogastric tube terminates below the diaphragm. Bilateral perihilarand basilar opacities. No pleural effusion. No pneumothorax. Cardiacsilhouette is within normal limits. IMPRESSION: Endotracheal tube terminates 3 cm above the raghavendra. Bilateral airspace opacities concerning for infection. CRITICAL RESULT: No. COMMUNICATION: Per this written report. Signed by Katalina Hauser on 09/23/2021 6:09 PM Zhane Valencia ASSEMBLY OPERATOR IMG XR PROCEDURES Final Resu lt * (ABNORMAL) Prothrombin Time/INR (09/23/2021 5:35 PM EST) Prothrombin Time 16.7(H) 12.0 - 14.3 sec 09/23/2021 6:31 PM EST [facility] INR 1.3(H) 0.9 - 1.1 09/23/2021 6:31 PM EST [facility] Blood Venous blood specimen / Unknown Venipuncture / Unknown 09/23/2021 5:35 PM EST 09/23/2021 5:44 PM EST Narrative [facility] - 09/23/2021 6:31 PM EST OPTIMAL INR RANGES FOR PATIENT ON ORAL ANTICOAGULANT THERAPY Prevention of venous thromboembolism ?INR 2.0 to 3.0 In patients with heart disease: Atrial fibrillation ?INR 2.0 to 3.0 Valvular heart disease ? INR 2.0 to 3.0 Tissue heart valves ?INR 2.0 to 3.0 Mechanical prosthetic valves ? INR 2.5 to 3.5 Prevention of recurrent [place] ? INR 2.5 to 3.5 Zhane Valencia APRN LAB BLOOD ORDERABLES Final R esult [facility] [address] [place] [address] * Blood culture, peripheral #2 (09/23/2021 5:35 PM EST) Culture No growth at day 5 MARK 09/28/2021 9:01 PM EST [facility] Blood Structure of left hand / Unknown Venipuncture / Unknown 09/23/2021 5:35 PM EST 09/23/2021 5:47 PM EST [facility] MICRO[facility]OLOG[facility] - GENERAL O RDERABLES Final Result Performing Organization Address City/[facility]/ZIP Co de Phone Number [facility] [address] [place] [address] * (ABNORMAL) APTT (09/23/2021 5:35 PM EST) aPTT 56(H) 25 - 35 sec 09/23/2021 6:32 PM EST [facility] Blood Venous blood specimen / Unknown Venipuncture / Unknown 09/23/2021 5:35 PM EST 09/23/2021 5:44 PM EST Zhane Ballard [facility] ASSEMBLY OPERATOR LAB BLOOD ORDERABLES Final R esult Performing Organization Address [facility] Co de Phone Number [facility] [address] [place] [address] * Acute Hepatitis Panel (09/23/2021 5:35 PM EST) Pathologist [facility] Hepatitis B Surf Antigen Negative Negative 09/23/2021 8:45 PM EST [facility] Hepatitis C Antibody Negative Negative 09/23/2021 8:45 PM EST [facility] Hepatitis A Antibody IgM Negative Negative 09/23/2021 8:45 PM EST [facility] Hepatitis B Core Antibody IgM Negative Negative 09/23/2021 8:45 PM EST [facility] Blood Venous blood specimen / Unknown Venipuncture / Unknown 09/23/2021 5:35 PM EST 09/23/2021 5:44 PM EST Zhane Ballard [facility] ASSEMBLY OPERATOR LAB BLOOD ORDERABLES Final R esult Performing Organization Address City/[facility]/ZIP Co de Phone Number [facility] [address] [place] [address] * (ABNORMAL) Lipase (09/23/2021 5:34 PM EST) Lipase, Plasma 128(H) 19 - 63 U/L 09/23/2021 6:23 PM EST [facility] Blood Venous blood specimen / Unknown Venipuncture / Unknown 09/23/2021 5:34 PM EST 09/23/2021 5:43 PM EST Zhane Ballard Strey[facility] ASSEMBLY OPERATOR LAB BLOOD ORDERABLES Final R esult Performing Organization Address City/[facility]/ZIP Co de Phone Number [facility] [address] [place] [address] * Ammonia, Plasma (09/23/2021 5:34 PM EST) Pathologist [facility] Ammonia 21 11 - 51 umol/L 09/23/2021 6:11 PM EST [facility] Comment:Improper specimen batres ndling may falsely increase results. Blood Venous blood specimen / Unknown Venipuncture / Unknown 09/23/2021 5:34 PM EST 09/23/2021 5:43 PM EST Zhane Millican ASSEMBLY OPERATOR LAB BLOOD ORDERABLES Final R esult Performing Organization Address [facility] de Phone Number [facility] [address] [place] [address] * (ABNORMAL) Magnesium, Plasma (09/23/2021 5:34 PM EST) Pathologist [facility] Magnesium, Plasma 1.7(L) 1.9 - 2.4 mg/dL 09/23/2021 6:23 PM EST [facility] Blood Venous blood specimen / Unknown Venipuncture / Unknown 09/23/2021 5:34 PM EST 09/23/2021 5:43 PM EST Zhane Millican ASSEMBLY OPERATOR LAB BLOOD ORDERABLES Final R esult Performing Organization Address City/[facility] Co de Phone Number [facility] [address] [place] [address] * Phosphorus, Plasma (09/23/2021 5:34 PM EST) Pathologist [facility] Phosphorus, Plasma 4.2 2.5 - 4.5 mg/dL 09/23/2021 6:23 PM EST [facility] Blood Venous blood specimen / Unknown Venipuncture / Unknown 09/23/2021 5:34 PM EST 09/23/2021 5:43 PM EST us Zhane Valencia ASSEMBLY OPERATOR LAB BLOOD ORDERABLES Final R esult [facility] [address] [place] [address] * (ABNORMAL) CBC and Differential (09/23/2021 5:34 PM EST) WBC Count 15.00(H) 3.70 - 10.30 10*3/uL LAB HEMATOLOGY METHOD 09/23/2021 5:51 PM EST [facility] RBC Count 2.46(L) 3.90 - 5.20 10*6/uL LAB HEMATOLOGY METHOD 09/23/2021 5:51 PM EST [facility] HGB 7.7(L) 11.2 - 15.7 g/dL LAB HEMATOLOGY METHOD 09/23/2021 5:51 PM EST [facility] HCT 26.0(L) 34.0 - 45.0 % LAB HEMATOLOGY METHOD 09/23/2021 5:51 PM EST [facility] Platelet Count 347 155 - 369 10*3/uL LAB HEMATOLOGY METHOD 09/23/2021 5:51 PM EST [facility] MCV 106(H) 79 - 98 fL LAB HEMATOLOGY METHOD 09/23/2021 5:51 PM EST [facility] MCH 31.3 26.0 - 32.0 pg LAB HEMATOLOGY METHOD 09/23/2021 5:51 PM EST [facility] MCHC 29.6(L) 30.7 - 35.5 g/dL LAB HEMATOLOGY METHOD 09/23/2021 5:51 PM EST [facility] RDW 27.9(H) 11.5 - 14.5 % LAB HEMATOLOGY METHOD 09/23/2021 5:51 PM EST [facility] MPV 11.4 8.8 - 12.5 fL LAB HEMATOLOGY METHOD 09/23/2021 5:51 PM EST [facility] nRBC 0.0 <=0.0 per 100 WBCs LAB HEMATOLOGY METHOD 09/23/2021 5:51 PM EST [facility] Differential Type Automated LAB HEMATOLOGY METHOD 09/23/2021 5:51 PM EST [facility] Neutrophils % 72.0 % LAB HEMATOLOGY METHOD 09/23/2021 5:51 PM EST [facility] Lymphocytes % 13.0 % LAB HEMATOLOGY METHOD 09/23/2021 5:51 PM EST [facility] Monocytes % 10.0 % LAB HEMATOLOGY METHOD 09/23/2021 5:51 PM EST [facility] Eosinophils % 2.0 % LAB HEMATOLOGY METHOD 09/23/2021 5:51 PM EST [facility] Basophils % 1.0 % LAB HEMATOLOGY METHOD 09/23/2021 5:51 PM EST [facility] Immature Granulocytes % 2.0 % LAB HEMATOLOGY METHOD 09/23/2021 5:51 PM EST [facility] Neutrophils Absolute 11.03(H) 1.60 - 6.10 10*3/uL LAB HEMATOLOGY METHOD 09/23/2021 5:51 PM EST [facility] Lymphocytes Absolute 1.91 1.20 - 3.90 10*3/uL LAB HEMATOLOGY METHOD 09/23/2021 5:51 PM EST [facility] Monocytes Absolute 1.43(H) 0.30 - 0.90 10*3/uL LAB HEMATOLOGY METHOD 09/23/2021 5:51 PM EST [facility] Eosinophils Absolute 0.29 0.00 - 0.50 10*3/uL LAB HEMATOLOGY METHOD 09/23/2021 5:51 PM EST [facility] Basophils Absolute 0.12(H) 0.00 - 0.10 10*3/uL LAB HEMATOLOGY METHOD 09/23/2021 5:51 PM EST [facility] Immature Granulocytes Absolute 0.22(H) 0.00 - 0.06 10*3/uL LAB HEMATOLOGY METHOD 09/23/2021 5:51 PM EST [facility] Blood Venous blood specimen / Unknown Venipuncture / Unknown 09/23/2021 5:34 PM EST 09/23/2021 5:44 PM EST Narrative [facility] - 09/23/2021 5:51 PM EST Therapeutic decision making should be based on absolute values, rather than percentages. us Zhane Valencia ASSEMBLY OPERATOR LAB BLOOD ORDERABLES Final R esult [facility] [address] [place] [address] * (ABNORMAL) Comprehensive Metabolic Panel, Plasma (09/23/2021 5:34 PM EST) Glucose, Plasma 109(H) 74 - 99 mg/dL 09/23/2021 6:23 PM [facility] BUN, Plasma 32(H) 7 - 21 mg/dL 09/23/2021 6:23 PM [facility] Creatinine, Plasma 0.78 0.60 - 1.10 mg/dL 09/23/2021 6:23 PM [facility] BUN/Creatinine Ratio 41 09/23/2021 6:23 PM [facility] Sodium, Plasma 148(H) 136 - 145 mmol/L 09/23/2021 6:23 PM [facility] Potassium, Plasma 3.6(L) 3.7 - 4.8 mmol/L 09/23/2021 6:23 PM [facility] Chloride, Plasma 109(H) 97 - 107 mmol/L 09/23/2021 6:23 PM [facility] CO2, Plasma 30(H) 22 - 29 mmol/L 09/23/2021 6:23 PM [facility] Anion Gap 9 6 - 16 mmol/L 09/23/2021 6:23 PM [facility] Total Calcium, Plasma 8.3(L) 8.9 - 10.2 mg/dL 09/23/2021 6:23 PM [facility] Total Protein 6.2(L) 6.3 - 7.9 g/dL 09/23/2021 6:23 PM [facility] Albumin, Plasma 1.6(L) 3.5 - 5.2 g/dL 09/23/2021 6:23 PM [facility] AST, Plasma 63(H) 11 - 32 U/L 09/23/2021 6:23 PM [facility] ALT, Plasma 20 8 - 33 U/L 09/23/2021 6:23 PM [facility] Alkaline Phosphatase, Plasma 111(H) 35 - 104 U/L 09/23/2021 6:23 PM [facility] Total Bilirubin, Plasma 0.9 0.2 - 1.1 mg/dL 09/23/2021 6:23 PM [facility] eGFR >60 >60 mL/min/1.7 3m*2 09/23/2021 6:23 PM [facility] Comment:eGFR = estimated GFR ; eGFR units = mL/min/1.73 sq meters Chronic Kidney Disease is considered if eGFR <60 mL/min/1.73 sq meters Kidney failure is considered if eGFR is <15 mL/min/1.73 sq meters. eGFR assumes steady state plasma creatinine concentration; not applicable if renal function is rapidly changing or patient is on dialysis. eGFR, if AFR/AM >60 >60 mL/min/1.7 3m*2 09/23/2021 6:23 PM EST [facility] Comment:eGFR = estimated GFR ; eGFR units = mL/min/1.73 sq meters Chronic Kidney Disease is considered if eGFR <60 mL/min/1.73 sq meters Kidney failure is considered if eGFR is <15 mL/min/1.73 sq meters. eGFR assumes steady state plasma creatinine concentration; not applicable if renal function is rapidly changing or patient is on dialysis. Blood Venous blood specimen / Unknown Venipuncture / Unknown 09/23/2021 5:34 PM EST 09/23/2021 5:43 PM EST us Zhane Valencia ASSEMBLY OPERATOR LAB BLOOD ORDERABLES Final R esult [facility] [address] [place] [address] * (ABNORMAL) Procalcitonin, Plasma (09/23/2021 5:34 PM EST) Procalcitonin, Plasma 2.64(H) <0.09 ng/mL 09/23/2021 6:28 PM EST [facility] Blood Venous blood specimen / Unknown Venipuncture / Unknown 09/23/2021 5:34 PM EST 09/23/2021 5:43 PM EST Narrative [facility] - 09/23/2021 6:28 PM EST Procalcitonin concentrations in healthy individuals are <0.09 ng/mL. Published data support the following interpretive risk assessment: An elevated procalcitonin result does not always indicate sepsis. Various non-infectious conditions are known to increase procalcitonin. Results should be considered in the context of clinical symptoms and other laboratory tests. Procalcitonin >2.0 ng/mL: Concentrations >2.0 ng/mL on the first day of ICU admission are associated with a higher risk of progression to severe sepsis and/or septic shock. The change in PCT over time may help predict 28 day mortality risk. Please consult [email or web address]-btl-[email or web address] for more information. Test performed at [facility]. Zhane Ballard Streyner ASSEMBLY OPERATOR LAB BLOOD ORDERABLES Final R esult Performing Organization Address City/[facility] Co de Phone Number [facility] [address] [place] [address] * (ABNORMAL) Prealbumin, Plasma (09/23/2021 5:34 PM EST) Prealbumin, Plasma 5.2(L) 20.0 - 41.0 mg/dL 09/23/2021 8:47 PM EST [facility] Blood Venous blood specimen / Unknown Venipuncture / Unknown 09/23/2021 5:34 PM EST 09/23/2021 5:43 PM EST Zhane Millican ASSEMBLY OPERATOR LAB BLOOD ORDERABLES Final R esult Performing Organization Address [facility] de Phone Number [facility] [address] [place] [address] * (ABNORMAL) N-Terminal ProBNP, Plasma (09/23/2021 5:34 PM EST) N-Terminal, PROBNP, Plasma 2,264(H) 0 - 449 pg/mL 09/23/2021 6:23 PM EST [facility] Blood Venous blood specimen / Unknown Venipuncture / Unknown 09/23/2021 5:34 PM EST 09/23/2021 5:43 PM EST [facility] ASSEMBLY OPERATOR LAB BLOOD ORDERABLES Final R esult Performing Organization Address City/[facility] Co de Phone Number [facility] [address] [place] [address] * Hemoglobin A1c (09/23/2021 5:33 PM EST) Hemoglobin A1c 4.9 <5.7 % 09/23/2021 8:09 PM EST [facility] Blood Venous blood specimen / Unknown Venipuncture / Unknown 09/23/2021 5:33 PM EST 09/23/2021 7:00 PM EST Narrative [facility] - 09/23/2021 8:09 PM EST HA1C Interpretive Data: Diagnosis of Diabetes: Diabetic > or = 6.5% Pre-diabetic 5.7 to 6.4% Non-diabetic < or = 5.6% Glycemic Targets for Type I and Type II Diabetics: Non- Adults <7.0% Adults <6.0% Children and Adolescents <7.5% Source: ??[place] [employer]. Standards of medical care in diabetes,2017. Diabetes Care.2017:40 (suppl 1):S1-S135. HbA1c assay performed by an ion-exchange chromatography method that is certified traceable to the DCCT. us Zhane Valencia ASSEMBLY OPERATOR LAB BLOOD ORDERABLES Final R esult [facility] [address] [place] [address] * (ABNORMAL) POCT glucose meter (09/23/2021 4:52 PM EST) POCT Glucose 102(H) 74 - 99 mg/dL 09/23/2021 5:00 PM EST [facility] Comment:Accuracy of a glucos e result obtained from a capillary whole blood specimen relies upon adequate, non-compromised capillary blood flow. If the capillary glucose result is not consistent with the patient's clinical signs and symptoms, glucose testing should be repeated with either an arterial or venous sample on the glucometer or sent to the main labortory for testing. Comment 09/23/2021 5:00 PM EST [facility] Manager Special Events ID DetassisLeila 09/23/19 5:00 PM EST [facility] Device ID [id number] 09/23/2021 5:00 PM EST [facility] Specimen Type POC Capillary 09/23/2021 5:00 PM EST [facility] Blood Capillary blood specimen / Unknown 09/23/2021 4:52 PM EST 09/23/2021 5:00 PM EST us Loren Dietrich MD LAB POINT OF CARE TE ST DOCKED DEVICE UNSOLICITED RESULTS Final Result Performing Organization Address [facility] de Phone Number [facility] [address] [place] [id number] * CT Chest wo IV Contrast (09/22/2021 1:45 PM EST) Narrative IMAG[facility] - 09/23/2021 8:43 PM EST This study was performed at an outside facility and has been loaded into the PACS system for reference only. ??This order has been auto-finalized and does not contain a result. us Unknown Unknown IMG CT PROCEDURES Final Result Performing Organization Address [facility] de Phone Number IMAGING * CT Abdomen Pelvis wo IV Contrast (09/22/2021 1:40 PM EST) Narrative [facility] - 09/23/2021 8:43 PM EST This study was performed at an outside facility and has been loaded into the PACS system for reference only. ??This order has been auto-finalized and does not contain a result. us Unknown Unknown IMG CT PROCEDURES Final Result Performing Organization Address [facility] de Phone Number IMAGING * XR Abdomen 1 View (09/21/2021 8:25 AM EST) Narrative IMAGING - 09/23/2021 8:44 PM EST This study was performed at an outside facility and has been loaded into the PACS system for reference only. ??This order has been auto-finalized and does not contain a result. us Unknown Unknown IMG XR PROCEDURES Final Result Performing Organization Address [facility] Co de Phone Number IMAGING * XR Chest 1 View (09/20/2021 5:00 AM EST) Narrative IMAGING - 09/23/2021 8:45 PM EST This study was performed at an outside facility and has been loaded into the PACS system for reference only. ??This order has been auto-finalized and does not contain a result. us Unknown Unknown IMG XR PROCEDURES Final Result Performing Organization Address [facility] de Phone Number IMAGING * XR Abdomen 1 View (09/19/2021 2:55 PM EST) Narrative IMAGING - 09/23/2021 8:46 PM EST This study was performed at an outside facility and has been loaded into the PACS system for reference only. ??This order has been auto-finalized and does not contain a result. us Unknown Unknown IMG XR PROCEDURES Final Result Performing Organization Address [facility] de Phone Number IMAGING * CT Abdomen Pelvis w IV Contrast (09/18/2021 1:20 PM EST) Narrative IMAGING - 09/23/2021 8:46 PM EST This study was performed at an outside facility and has been loaded into the PACS system for reference only. ??This order has been auto-finalized and does not contain a result. us Unknown Unknown IMG CT PROCEDURES Final Result Performing Organization Address [facility] de Phone Number IMAGING * XR Chest 1 View (09/16/2021 10:10 AM EST) Narrative IMAGING - 09/23/2021 8:47 PM EST This study was performed at an outside facility and has been loaded into the PACS system for reference only. ??This order has been auto-finalized and does not contain a result. us Unknown Unknown IMG XR PROCEDURES Final Result Performing Organization Address [facility] de Phone Number IMAGING * XR Abdomen 2 Views (09/16/2021 6:30 AM EST) Narrative IMAGING - 09/23/2021 8:49 PM EST This study was performed at an outside facility and has been loaded into the PACS system for reference only. ??This order has been auto-finalized and does not contain a result. us Unknown Unknown IMG XR PROCEDURES Final Result Performing Organization Address [facility] de Phone Number IMAGING * US Abdomen (09/13/2021 12:00 AM EST) Narrative IMAGING - 09/23/2021 8:51 PM EST This study was performed at an outside facility and has been loaded into the PACS system for reference only. ??This order has been auto-finalized and does not contain a result. us Unknown Unknown IMG US PROCEDURES Final Result Performing Organization Address [facility] de Phone Number IMAGING * CT Abdomen Pelvis wo IV Contrast (09/12/2021 12:45 PM EST) Narrative IMAGING - 09/23/2021 8:52 PM EST This study was performed at an outside facility and has been loaded into the PACS system for reference only. ??This order has been auto-finalized and does not contain a result. us Unknown Unknown IMG CT PROCEDURES Final Result Performing Organization Address [facility] Phone Number IMAGING * US Abdomen (09/11/2021 3:20 PM EST) Narrative IMAGING - 09/23/2021 8:53 PM EST This study was performed at an outside facility and has been loaded into the PACS system for reference only. ??This order has been auto-finalized and does not contain a result. us Unknown Unknown IMG US PROCEDURES Final Result Performing Organization Address [facility] Phone Number IMAGING documented in this encounter Visit Diagnoses Diagnosis Superficial dehiscence of operation wound- Primary Disruption of external operation (surgical) wound Encounter for other specified special examinations Respiratory failure with hypoxia, unspecified chronicity (CMS/HCC) Altered mental status, unspecified altered mental status type Sepsis (CMS/HCC) Hypomagnesemia Disorders of magnesium metabolism Hypoglycemia Hypoglycemia, unspecified Respiratory failure with hypoxia (CMS/HCC) documented in this encounter Admitting Diagnoses Diagnosis Sepsis (CMS/HCC) documented in this encounter Administered Medications Inactive Administered Medications - up to 3 most recent administrations Medication Order MAR Action Action Date Dose Rate Site acetaminophen (Tylenol) tablet 650 mg 650 mg, Oral, Every 4 hours PRN, Starting on 09/23/21 at 1655, Until Fri10/16/21 at 1705, Routine, fever, for temperature > 38.5 Given 10/15/2021 9:32 PM EST 650 mg Given 10/15/2021 5:00 PM EST 650 mg Given 10/13/2021 11:11 AM EST 650 mg alteplase (Cathflo Activase) injection 2 mg 2 mg, Intracatheter, As needed, Starting on Fri09/24/21 at 0406, Until Fri10/16/21 at 1705, Routine, line care calcium carbonate (Tums) chewable tablet 500 mg 500 mg, Oral, 4 times daily PRN, Starting on 09/29/21 at 2100, Until Fri10/16/21 at 1705, Routine, indigestion, heartburn Given 10/12/2021 8:26 AM EST 500 mg Given 10/10/2021 6:04 PM EST 500 mg Given 10/07/2021 9:02 PM EST 500 mg calcium gluconate 0.5 g in sodium chloride 0.9 % 100 mL infusion 0.5 g, Intravenous, Once, 1 dose, On [place] 09/27/21 at 0545, at 220 mL/hr, Administer over 30 Minutes, Routine New Bag 09/27/2021 6:08 AM EST 0.5 g 220 mL/hr cefepime (Maxipime) 2 g in sodium chloride 0.9% 100 mL IVPB (Mini-Bag Plus) 2 g, Intravenous, Every 8 hours, 8 doses, First dose on Fri09/24/21 at 1500, Last dose on Fri09/26/21 at 2300, Routine New Bag 09/26/2021 11:00 PM EST 2 g 36.7 mL/hr New Bag 09/26/2021 3:02 PM EST 2 g 36.7 mL/hr New Bag 09/26/2021 7:00 AM EST 2 g 36.7 mL/hr dexmedetomidine (Precedex) 1000 mcg in 250 mL NS (4 mcg/mL) infusion 0.4-1.4 mcg/kg/hr ? 83.8 kg (8.38-29.33 mL/hr), 4 mcg/mL, Intravenous, Titrated, Starting on Fri09/24/21 at 1600, Until Fri09/26/21 at 0633, Routine Rate/Dose Verify 09/26/2021 9:00 AM EST 0.4 mcg/kg/hr 8.38 mL/hr Rate/Dose Verify 09/26/2021 8:00 AM EST 0.4 mcg/kg/hr 8.38 mL/hr Rate/Dose Verify 09/26/2021 5:00 AM EST 0.4 mcg/kg/hr 8.38 mL/hr dextrose 10 % (D10W) bolus 125 mL 125 mL (12.5 g), Intravenous, Every 15 min PRN, Starting on Fri09/23/21 at 1655, Until Fri10/15/21 at 1020, Administer over 7.5 Minutes, Routine, POC BG 51 to 70 mg/dL New Bag 09/29/2021 12:42 AM EST 125 mL 1000 mL/hr dextrose 10 % continuous infusion 75 mL/hr, Intravenous, Continuous, Starting on Fri09/24/21 at 0430, Until Fri09/24/21 at 2244, Routine Rate/Dose Verify 09/24/2021 3:00 PM EST 75 mL/hr 75 mL/hr New Bag 09/24/2021 2:26 PM EST 75 mL/hr 75 mL/hr Rate/Dose Verify 09/24/2021 2:00 PM EST 75 mL/hr 75 mL/h r dextrose 10 % continuous infusion 25 mL/hr, Intravenous, Continuous, Starting on Fri09/25/21 at 1830, Until Fri09/27/21 at 0907, Routine Rate/Dose Verify 09/27/2021 9:00 AM EST 25 mL/hr 25 mL/hr Rate/Dose Verify 09/27/2021 8:00 AM EST 25 mL/hr 25 mL/h r Rate/Dose Verify 09/27/2021 7:00 AM EST 25 mL/hr 25 mL/h r dextrose 5 % infusion 75 mL/hr, Intravenous, Continuous, Starting on Fri09/27/21 at 0930, Until Fri10/02/21 at 1248, Routine New Bag 10/01/2021 12:13 AM EST 75 mL/hr 75 mL/hr Rate/Dose Verify 09/29/2021 4:00 PM EST 75 mL/hr 75 mL/h r Rate/Dose Verify 09/29/2021 3:00 PM EST 75 mL/hr 75 mL/h r dextrose 5 % infusion 30 mL/hr, Intravenous, Continuous, Starting on Fri10/03/21 at 0945, Until Fri10/08/21 at 1443, Routine Rate/Dose Change 10/06/2021 11:53 AM EST 30 mL/hr 30 mL/hr New Bag 10/06/2021 4:28 AM EST 40 mL/hr 40 mL/hr Rate/Dose Change 10/05/2021 9:53 AM EST 40 mL/hr 40 mL/h r dextrose 50 % solution 12.5 g 12.5 g, Intravenous, Every 15 min PRN, Starting on Fri09/23/21 at 1655, Until Fri10/15/21 at 1020, Routine, low blood sugar, POC BG 51 to 70 mg/dL Given 10/03/2021 5:29 AM EST 12.5 g Given 09/24/2021 3:47 AM EST 25 g Given 09/23/2021 11:40 PM EST 12.5 g diphenhydrAMINE (BENADryl) tablet 12.5 mg 12.5 mg, Oral, Once, 1 dose, On 10/13/21 at 1800, Routine Given 10/13/2021 6:05 PM EST 12.5 mg diphenhydrAMINE (BENADryl) tablet 25 mg 25 mg, Oral, Once, 1 dose, On Fri10/10/21 at 1645, Routine Given 10/10/2021 4:24 PM EST 25 mg enoxaparin (Lovenox) syringe 40 mg 40 mg, Subcutaneous, Daily with dinner, First dose on Fri09/24/21 at 1800, Until Discontinued, Routine Given 10/02/2021 6:32 PM EST 40 mg Right Upper Arm (Kasandra k) Given 10/01/2021 6:16 PM EST 40 mg Le ft Upper Arm (Back) Given 09/30/2021 6:01 PM EST 40 mg Le ft Lower Abdomen esomeprazole (NexIUM) oral packet for suspension 40 mg 40 mg, Oral, Daily before breakfast, First dose on Fri09/25/21 at 0730, Until Discontinued, Routine Given 09/25/2021 8:00 AM EST 40 mg famotidine (Pepcid) tablet 20 mg 20 mg, Oral, 2 times daily, First dose on Fri10/02/21 at 0900, Until Discontinued, Routine Given 10/15/2021 8:04 PM EST 20 mg Given 10/15/2021 8:17 AM EST 20 mg Given 10/14/2021 8:17 PM EST 20 mg folic acid (Folvite) tablet 1 mg 1 mg, Oral, Daily, First dose on Fri09/28/21 at 0900, Until Discontinued, Routine Given 10/16/2021 8:04 AM EST 1 mg Given 10/15/2021 8:17 AM EST 1 mg Given 10/14/2021 9:46 AM EST 1 mg folic acid injection 1 mg 1 mg, Intravenous, Daily, First dose on Fri09/24/21 at 1000, Until Discontinued, Routine Given 09/27/2021 9:13 AM EST 1 mg Given 09/26/2021 8:48 AM EST 1 mg Given 09/25/2021 10:43 AM EST 1 mg furosemide (Lasix) injection 40 mg 40 mg, Intravenous, Once, 1 dose, On Fri09/25/21 at 0715, Routine Given 09/25/2021 8:29 AM EST 40 mg glucose (Glutose) 40 % oral gel 15 g 15 g, Oral, Every 15 min PRN, Starting on Fri09/23/21 at 1655, Until Fri10/15/21 at 1020, Routine, POC BG 51 to 70 Self Administered Via Pump 10/14/2021 8:26 AM EST 15 g Given 10/03/2021 5:10 AM EST 15 g hydromorphone 20 mg in NS 100 mL infusion (200 mcg/mL) 0.25-2 mg/hr (1.25-10 mL/hr), 0.2 mg/mL, Intravenous, Titrated, Starting on Fri09/23/21 at 1730, Until Fri09/25/21 at 0646, Routine Rate/Dose Verify 09/24/2021 9:00 AM EST 0.5 mg/hr 2.5 mL/hr Rate/Dose Verify 09/24/2021 8:00 AM EST 0.5 mg/hr 2.5 mL/ hr Rate/Dose Verify 09/24/2021 7:00 AM EST 0.5 mg/hr 2.5 mL/ hr insulin lispro (HumaLOG) 100 units/mL injection - Correction - Standard Dose 0-5 Units, Subcutaneous, 3 times daily with meals, First dose on Fri10/04/21 at 0830, Until Discontinued, Routine Given 10/05/2021 5:07 PM EST 1 Units Left Lower Abdomen iohexol (OMNIPaque) 300 MG/ML injection 100 mL 100 mL, Intravenous, Once in imaging, 1 dose, Starting on Fri09/27/21 at 0937, Until Fri09/27/21 at 1013, Routine, Imaging Protocol Orders Given 09/27/2021 10:13 AM EST 100 mL iohexol (OMNIPaque) 9 MG/ML oral contrast 500 mL 500 mL, Oral, Once in imaging, 1 dose, Starting on Fri09/23/21 at 1808, Until Fri09/23/21 at 1857, Routine, Imaging Protocol Orders Given 09/23/2021 6:57 PM EST 500 mL ketorolac (Toradol) injection 30 mg 30 mg, Intravenous, Once, 1 dose, On Fri09/30/21 at 0530, Routine Given 09/30/2021 5:59 AM EST 30 mg lactated Ringer's bolus 1,000 mL 1,000 mL, Intravenous, Once, 1 dose, On Fri09/28/21 at 0645, Administer over 1 Hours, Routine New Bag 09/28/2021 6:46 AM EST 1,000 mL 1000 mL/hr lisinopril tablet 10 mg 10 mg, Oral, Daily, First dose on Fri10/02/21 at 0900, Until Discontinued, Routine Given 10/16/2021 8:04 AM EST 10 mg Given 10/14/2021 9:47 AM EST 10 mg Given 10/13/2021 8:51 AM EST 10 mg LORazepam (Ativan) injection 3 mg 3 mg, Intravenous, Every 1 hour PRN, Starting on Fri09/25/21 at 1318, Until Fri09/27/21 at 0903, Routine, CIWA 15-24 AND unable to take PO Given 09/27/2021 3:22 AM EST 3 mg magnesium oxide (Mag-Ox) tablet 800 mg 800 mg, Oral, 2 times daily, 10 doses, First dose on Fri10/10/21 at 1830, Last dose on Fri10/15/21 at 0900, Routine Given 10/15/2021 8:17 AM EST 800 mg Given 10/14/2021 8:17 PM EST 800 mg Given 10/14/2021 9:47 AM EST 800 mg magnesium sulfate in D5W IVPB 1 g 1 g, Intravenous, Once, 1 dose, On Fri09/28/21 at 0645, Routine New Bag 09/28/2021 9:37 AM EST 1 g magnesium sulfate in D5W IVPB 1 g 1 g, Intravenous, Once, 1 dose, On Fri10/06/21 at 0715, Routine New Bag 10/06/2021 10:25 AM EST 1 g magnesium sulfate IVPB 2 g 2 g, Intravenous, Once, 1 dose, On Fri09/24/21 at 1030, Routine New Bag 09/24/2021 10:21 AM EST 2 g magnesium sulfate IVPB 2 g 2 g, Intravenous, Once, 1 dose, On Fri09/26/21 at 0430, at 25 mL/hr, Administer over 2 Hours, Routine New Bag 09/26/2021 4:47 AM EST 2 g 25 mL/hr magnesium sulfate IVPB 2 g 2 g, Intravenous, Once, 1 dose, On Fri09/29/21 at 0230, at 25 mL/hr, Administer over 2 Hours, Routine New Bag 09/29/2021 2:45 AM EST 2 g 25 mL/hr magnesium sulfate IVPB 2 g 2 g, Intravenous, Once, 1 dose, On Fri10/01/21 at 1400, Routine Bag 10/01/2021 2:15 PM EST 2 g magnesium sulfate IVPB 2 g 2 g, Intravenous, Once, 1 dose, On Fri10/02/21 at 0700, Routine New Bag 10/02/2021 9:11 AM EST 2 g magnesium sulfate IVPB 2 g 2 g, Intravenous, Once, 1 dose, On Fri10/03/21 at 0700, Routine New Bag 10/03/2021 8:55 AM EST 2 g magnesium sulfate IVPB 4 g 4 g, Intravenous, Once, 1 dose, On Fri10/05/21 at 0700, Routine New Bag 10/05/2021 9:51 AM EST 4 g magnesium sulfate IVPB 4 g 4 g, Intravenous, Once, 1 dose, On Fri10/08/21 at 0715, Routine New Bag 10/08/2021 9:21 AM EST 4 g melatonin tablet 6 mg 6 mg, Oral, Nightly PRN, Starting on Fri10/01/21 at 1750, Until Fri10/02/21 at 0631, Routine, sleep Given 10/01/2021 8:13 PM EST 6 mg melatonin tablet 6 mg 6 mg, Oral, Nightly, First dose (after last modification) on Fri10/02/21 at 2100, Until Discontinued, Routine Given 10/15/2021 9:32 PM EST 6 mg Given 10/14/2021 8:16 PM EST 6 mg Given 10/13/2021 8:42 PM EST 6 mg meropenem (Merrem) 2 g in sodium chloride 0.9 % 100 mL IVPB 2 g, Intravenous, Every 8 hours, First dose on Fri09/23/21 at 2000, Until Discontinued, at 50 mL/hr, Administer over 3 Hours, Routine New Bag 09/24/2021 5:50 AM EST 2 g 50 mL/hr New Bag 09/23/2021 7:42 PM EST 2 g 50 mL/hr metOLazone (Zaroxolyn) tablet 10 mg 10 mg, Oral, Once, 1 dose, On Fri09/25/21 at 0715, Routine Given 09/25/2021 8:29 AM EST 10 mg micafungin (Mycamine) 100 mg in sodium chloride 0.9 % 100 mL IVPB 100 mg, Intravenous, Every 24 hours, 4 doses, First dose on Fri09/23/21 at 1915, Last dose on Fri09/26/21 at 1915, at 120 mL/hr, Administer over 60 Minutes, Routine Given 09/26/2021 9:16 PM EST 100 mg 120 mL/hr Given 09/25/2021 7:51 PM EST 100 mg 120 mL/hr Given 09/24/2021 8:02 PM EST 100 mg 120 mL/hr micafungin (Mycamine) 100 mg in sodium chloride 0.9 % 100 mL IVPB 100 mg, Intravenous, Every 24 hours, First dose on Fri09/27/21 at 1800, Until Discontinued, at 120 mL/hr, Administer over 60 Minutes, Routine Given 10/01/2021 6:16 PM EST 100 m g 120 mL/hr Given 09/30/2021 6:01 PM EST 100 mg 120 mL/hr Given 09/29/2021 8:49 PM EST 100 mg 120 mL/hr midazolam (Versed) 1 MG/ML injection - Pyxis Override Pull 1 dose, Starting on Fri09/24/21 at 0342, Until Fri09/24/21 at 0347 midazolam (Versed) injection 2 mg 2 mg, Intravenous, Once, 1 dose, On Fri09/24/21 at 0415, Routine Given 09/24/2021 3:47 AM EST 2 mg mineral oil-hydrophilic petrolatum (Aquaphor) ointment 1 application Topical, 2 times daily, First dose on Fri09/26/21 at 2100, Until Discontinued, Routine Given 10/14/2021 8:44 PM EST 1 application. Given 10/14/2021 10:39 AM EST 1 application. Given 10/13/2021 8:42 PM EST 1 application. nicotine (Nicoderm CQ) 21 MG/24HR patch 1 patch 1 patch, Transdermal, Daily, First dose on Fri10/02/21 at 1045, Until Discontinued, Routine Medication Applied 10/16/2021 8:05 AM EST 1 patch Right Arm Medication Applied 10/15/2021 8:17 AM EST 1 patch Left Arm Medication Applied 10/14/2021 10:35 AM EST 1 patch Left Arm nicotine (Nicoderm CQ) 7 MG/24HR patch 1 patch 1 patch, Transdermal, Daily, First dose on Fri10/01/21 at 0230, Until Discontinued, Routine Medication Applied 10/02/2021 9:12 AM EST 1 patch Right Arm Medication Applied 10/01/2021 2:46 AM EST 1 patch Left Arm ondansetron (Zofran) injection 4 mg 4 mg, Intravenous, Once, 1 dose, On Fri09/24/21 at 1515, Routine Given 09/24/2021 3:17 PM EST 4 mg ondansetron (Zofran) injection 4 mg 4 mg, Intravenous, Every 6 hours PRN, Starting on Fri09/27/21 at 1525, Until Fri10/16/21 at 1705, Routine, nausea, vomiting Given 10/01/2021 1:00 PM EST 4 mg Given 09/29/2021 8:49 PM EST 4 mg Given 09/29/2021 11:23 AM EST 4 mg oxyCODONE (Roxicodone) immediate release tablet 5 mg 5 mg, Oral, Once, 1 dose, On Fri10/10/21 at 1645, Routine Given 10/10/2021 4:24 PM EST 5 mg oxyCODONE (Roxicodone) immediate release tablet 5 mg 5 mg, Oral, Once, 1 dose, On Fri10/13/21 at 1800, Routine Given 10/13/2021 6:25 PM EST 5 mg pantoprazole (Protonix) injection 40 mg 40 mg, Intravenous, Daily, First dose on Fri09/23/21 at 1915, Until Discontinued, Routine Given 09/24/2021 9:30 AM EST 40 mg Given 09/23/2021 7:50 PM EST 40 mg PARoxetine (Paxil) tablet 20 mg 20 mg, Oral, Daily, First dose on Fri10/03/21 at 0900, Until Discontinued, Routine Given 10/16/2021 8:04 AM EST 20 mg Given 10/15/2021 8:17 AM EST 20 mg Given 10/14/2021 9:47 AM EST 20 mg potassium & sodium phosphates (Phos-NaK) 280-160-250 MG packet 1 packet 1 packet, Oral, 3 times daily, 3 doses, First dose on Fri09/25/21 at 0900, Last dose on Fri09/25/21 at 2100, Routine Given 09/25/2021 8:32 PM EST 1 packet Given 09/25/2021 9:00 AM EST 1 packet potassium & sodium phosphates (Phos-NaK) 280-160-250 MG packet 1 packet 1 packet, Oral, 2 times daily, 2 doses, First dose on Fri09/29/21 at 0230, Last dose on Fri09/29/21 at 0900, Routine Given 09/29/2021 8:14 AM EST 1 packet Given 09/29/2021 3:34 AM EST 1 packet potassium chloride (Klor-Con) packet 20 mEq 20 mEq, Oral, Once, 1 dose, On Fri09/24/21 at 1700, Routine Given 09/24/2021 4:54 PM EST 20 mEq potassium chloride (Klor-Con) packet 40 mEq 40 mEq, Oral, Every 4 hours, 2 doses, First dose on Fri09/27/21 at 0230, Last dose on Fri09/27/21 at 0630, Routine Given 09/27/2021 6:12 AM EST 40 mEq Given 09/27/2021 2:54 AM EST 40 mEq potassium chloride (Klor-Con) packet 40 mEq 40 mEq, Oral, Every 4 hours, 2 doses, First dose on Fri09/28/21 at 0200, Last dose on Fri09/28/21 at 0600, Routine Given 09/28/2021 6:44 AM EST 40 mEq Given 09/28/2021 2:26 AM EST 40 mEq potassium chloride (Klor-Con) packet 40 mEq 40 mEq, Oral, Every 4 hours, 2 doses, First dose on Fri09/29/21 at 0230, Last dose on Fri09/29/21 at 0630, Routine Given 09/29/2021 6:37 AM EST 40 mEq Given 09/29/2021 3:34 AM EST 40 mEq potassium chloride (Klor-Con) packet 40 mEq 40 mEq, Oral, Once, 1 dose, On Fri10/01/21 at 1400, Routine Given 10/01/2021 2:16 PM EST 40 mEq potassium chloride CR (Klor-Con) ER tablet 40 mEq 40 mEq, Oral, Every 3 hours, 2 doses, First dose on Fri10/02/21 at 0700, Last dose on Fri10/02/21 at 1000, Routine Given 10/02/2021 9:12 AM EST 40 mEq potassium chloride CR (Klor-Con) ER tablet 40 mEq 40 mEq, Oral, Every 3 hours, 2 doses, First dose on Fri10/03/21 at 0700, Last dose on Fri10/03/21 at 1000, Routine Given 10/03/2021 12:24 PM EST 40 mEq Given 10/03/2021 8:54 AM EST 40 mEq potassium chloride CR (Klor-Con) ER tablet 40 mEq 40 mEq, Oral, Once, 1 dose, On Fri10/06/21 at 0715, Routine Given 10/06/2021 10:25 AM EST 40 mEq potassium chloride CR (Klor-Con) ER tablet 40 mEq 40 mEq, Oral, Once, 1 dose, On Fri10/08/21 at 0715, Routine Given 10/08/2021 9:22 AM EST 40 mEq potassium chloride IVPB 20 mEq 20 mEq, Intravenous, Every 1 hour, 3 doses, First dose on Fri09/24/21 at 0730, Last dose on Fri09/24/21 at 0930, RoutineIndications:Hypokalemia New Bag 09/24/2021 12:38 PM EST 20 mEq 50 mL/hr New Bag 09/24/2021 11:12 AM EST 20 mEq 50 mL/hr New Bag 09/24/2021 9:48 AM EST 20 mEq 50 mL/hr potassium chloride IVPB 20 mEq 20 mEq, Intravenous, Every 1 hour, 4 doses, First dose on Fri09/26/21 at 0430, Last dose on Fri09/26/21 at 0730, Routine New Bag 09/26/2021 8:46 AM EST 20 mEq 50 mL/hr New Bag 09/26/2021 7:10 AM EST 20 mEq 50 mL/hr New Bag 09/26/2021 5:55 AM EST 20 mEq 50 mL/hr Povidone-Iodine 5 % swab solution 1 Swab Nasal, Daily, 5 doses, First dose on Fri09/23/21 at 1730, Last dose on Fri09/27/21 at 0900, Routine Given 09/27/2021 9:15 AM EST 1 Swab. Given 09/26/2021 8:47 AM EST 1 Swab. Given 09/25/2021 10:45 AM EST 1 Swab. propofol (Diprivan) infusion 10 mg/mL 10-50 mcg/kg/min ? 60 kg (3.6-18 mL/hr), Intravenous, Titrated, Starting on Fri09/23/21 at 1900, Until Fri09/24/21 at 0358, Routine Continued from OR 09/24/2021 3:38 AM EST 20 mcg/kg/min 7.2 mL/hr Rate/Dose Verify 09/24/2021 12:00 AM EST 21.944 mcg/kg/min 7.9 mL/hr Rate/Dose Verify 09/23/2021 9:00 PM EST 21.944 mcg/kg/min 7.9 mL/hr Right Neck propofol (Diprivan) infusion 10 mg/mL 10-50 mcg/kg/min ? 83 kg Order-specific weight (4.98-24.9 mL/hr), Intravenous, Titrated, Starting on Fri09/24/21 at 0415, Until Fri09/24/21 at 2244, Routine New Bag 09/24/2021 9:00 AM EST 30 mcg/kg/min 14.94 mL/hr Rate/Dose Verify 09/24/2021 8:00 AM EST 30 mcg/kg/min 14.9 4 mL/hr Rate/Dose Verify 09/24/2021 7:00 AM EST 30 mcg/kg/min 14.9 4 mL/hr QUEtiapine (SEROquel) tablet 100 mg 100 mg, Oral, Nightly, First dose (after last modification) on Fri10/02/21 at 2100, Until Discontinued, Routine Given 10/15/2021 9:32 PM EST 100 mg Given 10/14/2021 8:17 PM EST 100 mg Given 10/13/2021 8:41 PM EST 100 mg QUEtiapine (SEROquel) tablet 25 mg 25 mg, Oral, Nightly, First dose on Fri09/28/21 at 2100, Until Discontinued, Routine Given 09/28/2021 9:37 PM EST 25 mg QUEtiapine (SEROquel) tablet 50 mg 50 mg, Oral, Nightly, First dose (after last modification) on Fri09/29/21 at 2100, Until Discontinued, Routine Given 10/01/2021 8:13 PM EST 50 mg Given 09/30/2021 8:12 PM EST 50 mg Given 09/29/2021 8:49 PM EST 50 mg sodium chloride 0.9 % flush 3 mL 3 mL, Intravenous, As needed, Starting on Fri09/23/21 at 1655, Until Fri10/16/21 at 1705, Routine, line care thiamine (Vitamin B-1) tablet 100 mg 100 mg, Oral, Daily, First dose on Fri09/28/21 at 0900, Until Discontinued, Routine Given 10/16/2021 8:04 AM EST 100 mg Given 10/15/2021 8:17 AM EST 100 mg Given 10/14/2021 9:46 AM EST 100 mg thiamine (Vitamin B1) 500 mg in sodium chloride 0.9 % 100 mL IVPB 500 mg, Intravenous, Every 8 hours, 9 doses, First dose on Fri09/24/21 at 1000, Last dose on Fri09/27/21 at 0200, at 230 mL/hr, Routine New Bag 09/27/2021 2:00 AM EST 500 mg 230 mL/hr New Bag 09/26/2021 6:26 PM EST 500 mg 230 mL/hr New Bag 09/26/2021 10:03 AM EST 500 mg 230 mL/hr traMADol (Ultram) tablet 100 mg 100 mg, Oral, Every 6 hours PRN, Starting on Fri10/11/21 at 1252, Until Fri10/16/21 at 1705, Routine, severe pain Given 10/15/2021 5:00 PM EST 100 mg Given 10/14/2021 4:08 PM EST 100 mg Given 10/14/2021 10:38 AM EST 100 mg traMADol (Ultram) tablet 50 mg 50 mg, Oral, Every 6 hours PRN, Starting on Fri10/01/21 at 0407, Until Fri10/11/21 at 1252, Routine, severe pain Given 10/11/2021 8:16 AM EST 50 mg Given 10/10/2021 8:51 PM EST 50 mg Given 10/10/2021 7:45 AM EST 50 mg vancomycin IVPB 1250 mg in 250 mL NS 1,250 mg, Intravenous, Once, 1 dose, On Fri09/23/21 at 1900, at 230.4 mL/hr, Routine New Bag 09/23/2021 7:43 PM EST 1,250 mg 230.4 mL/h r documented in this encounter Active and Recently Administered Medications Times are shown in EST. Scheduled Medication Order 10/14/2021 10/15/2021 10/16/2021 enoxaparin (Lovenox) syringe 40 mg 40 mg, Subcutaneous, Daily with dinner, First dose on Fri09/24/21 at 1800, Until Discontinued, Routine 1822 (Not Given - Provider: Ronel Lovett RN - Reason: Patient/family refused) 1701 (Not Given - Provider: Ritu Mosquera RN - Reason: Patient/family refused) famotidine (Pepcid) tablet 20 mg (CANCELED) 20 mg, Oral, 2 times daily, First dose on Fri10/02/21 at 0900, Until Discontinued, Routine 0946 (Given - Provider: Ronel Lovett RN)2016 (Given - Provider: Deborah Aceves RN) 08 (Given - Provider: Ritu Mosquera, JOSE)2003 (Given - Provider: Chasity Cunningham RN) folic acid (Folvite) tablet 1 mg 1 mg, Oral, Daily, First dose on Fri09/28/21 at 0900, Until Discontinued, Routine 0946 (Given - Provider: Ronel Lovett RN) 0817 (Given - Provider: Ritu Mosquera RN) 0804 (Given - Provider: Karen Villanueva RN) lisinopril tablet 10 mg 10 mg, Oral, Daily, First dose on Fri10/02/21 at 0900, Until Discontinued, Routine 0947 (Given - Provider: Ronel Lovett RN) 08 (Not Given - Provider: Ritu Mosquera RN - Reason: Other - Comment: hypotension) 0804 (Given - Provider: Karen Villanueva RN) magnesium oxide (Mag-Ox) tablet 800 mg (COMPLETED) 800 mg, Oral, 2 times daily, 10 doses, First dose on Fri10/10/21 at 1830, Last dose on Fri10/15/21 at 0900, Routine 0947 (Given - Provider: Ronel Lovett RN)2016 (Given - Provider: Deborah Aceves RN) 0817 (Given - Provider: Ritu Mosquera RN) melatonin tablet 6 mg 6 mg, Oral, Nightly, First dose (after last modification) on Fri10/02/21 at 2100, Until Discontinued, Routine 2015 (Given - Provider: Deborah Aceves RN) 2131 (Given - Provider: Chasity Cunningham, JOSE) mineral oil-hydrophilic petrolatum (Aquaphor) ointment 1 application Topical, 2 times daily, First dose on Fri09/26/21 at 2100, Until Discontinued, Routine 1039 (Given - Provider: Ronel Lovett RN)2043 (Given - Provider: Deborah Aceves RN) 08 (Not Given - Provider: Ritu Mosquera RN - Reason: Patient/family refused)2007 (Not Given - Provider: Chasity Cunningham RN - Reason: Patient/family refused) 0900 (Canceled Entry - Provider: Automatic Discharge Provider - Comment: Automatically canceled at discontinue of medication order) nicotine (Nicoderm CQ) 21 MG/24HR patch 1 patch 1 patch, Transdermal, Daily, First dose on Fri10/02/21 at 1045, Until Discontinued, Routine 1035 (Medication Applied - Provider: Ronel Lovett RN)1041 (Medication Removed - Provider: Ronel Lovett RN) 0817 (Medication Applied - Provider: Ritu Mosquera RN) 0755 (Medication Removed - Provider: Karen Villanueva RN)0805 (Medication Applied - Provider: Karen Villanueva RN)1504 (Due: Medication Removed - Provider: Automatic Discharge Provider - Comment: Time automatically adjusted from order being discontinued) PARoxetine (Paxil) tablet 20 mg 20 mg, Oral, Daily, First dose on Fri10/03/21 at 0900, Until Discontinued, Routine 0947 (Given - Provider: Ronel Lovett RN) 0817 (Given - Provider: Ritu Mosquera RN) 0804 (Given - Provider: Karen Villanueva RN) QUEtiapine (SEROquel) tablet 100 mg 100 mg, Oral, Nightly, First dose (after last modification) on Fri10/02/21 at 2100, Until Discontinued, Routine 2016 (Given - Provider: Deborah Aceves RN) 2131 (Given - Provider: Chasity Cunningham, JOSE) thiamine (Vitamin B-1) tablet 100 mg 100 mg, Oral, Daily, First dose on Fri09/28/21 at 0900, Until Discontinued, Routine 0946 (Given - Provider: Ronel Lovett RN) 08 (Given - Provider: Ritu Mosquera RN) 08 (Given - Provider: Karen Villanueva RN) PRN Medication Order 10/14/2021 10/15/2021 10/16/2021 acetaminophen (Tylenol) tablet 650 mg 650 mg, Oral, Every 4 hours PRN, Starting on Fri09/23/21 at 1655, Until Fri10/16/21 at 1705, Routine, fever, for temperature > 38.5 1700 (Given - Provider: Ritu Mosquera RN)2131 (Given - Provider: Chasity Cunningham, JOSE) alteplase (Cathflo Activase) injection 2 mg 2 mg, Intracatheter, As needed, Starting on Fri09/24/21 at 0406, Until Fri10/16/21 at 1705, Routine, line care calcium carbonate (Tums) chewable tablet 500 mg 500 mg, Oral, 4 times daily PRN, Starting on 09/29/21 at 2100, Until Fri10/16/21 at 1705, Routine, indigestion, heartburn glucose (Glutose) 40 % oral gel 15 g (CANCELED)(Linked Group 1) 15 g, Oral, Every 15 min PRN, Starting on Fri09/23/21 at 1655, Until Fri10/15/21 at 1020, Routine, POC BG 51 to 70 0826 (Self Administered Via Pump - Provider: Ronel Lovett, RN) ondansetron (Zofran) injection 4 mg 4 mg, Intravenous, Every 6 hours PRN, Starting on Hansa 09/27/21 at 1525, Until Fri10/16/21 at 1705, Routine, nausea, vomiting sodium chloride 0.9 % flush 3 mL(Linked Group 2) 3 mL, Intravenous, As needed, Starting on Fri09/23/21 at 1655, Until Fri10/16/21 at 1705, Routine, line care traMADol (Ultram) tablet 100 mg 100 mg, Oral, Every 6 hours PRN, Starting on Hansa 10/11/21 at 1252, Until Fri10/16/21 at 1705, Routine, severe pain 0955 (Canceled Entry - Provider: Ronel Lovett RN - Comment: patient declined medication at this time)1038 (Given - Provider: Ronel Lovett RN)1608 (Given - Provider: Ronel Lovett RN) 1700 (Given - Provider: Ritu Mosquera RN) Linked Groups Order Group 1: dextrose 50 % solution 12.5 g (CANCELED) 12.5 g, Intravenous, Every 15 min PRN, Starting on Fri09/23/21 at 1655, Until Fri10/15/21 at 1020, Routine, low blood sugar, POC BG 51 to 70 mg/dL Or dextrose 10 % (D10W) bolus 125 mL (CANCELED) 125 mL (12.5 g), Intravenous, Every 15 min PRN, Starting on Fri09/23/21 at 1655, Until Fri10/15/21 at 1020, Administer over 7.5 Minutes, Routine, POC BG 51 to 70 mg/dL Or glucose (Glutose) 40 % oral gel 15 g (CANCELED)Jump to med 15 g, Oral, Every 15 min PRN, Starting on Fri09/23/21 at 1655, Until Fri10/15/21 at 1020, Routine, POC BG 51 to 70 Group 2: Insert peripheral IV (CANCELED) Once, On Fri09/23/21 at 1656, For 1 occurrence And Saline lock IV (CANCELED) Once, On Fri09/23/21 at 1656, For 1 occurrence And sodium chloride 0.9 % flush 3 mLJump to med 3 mL, Intravenous, As needed, Starting on Fri09/23/21 at 1655, Until Fri10/16/21 at 1705, Routine, line care documented in this encounter Additional Health Concerns Infection Onset Date Last Indicated Resolved Time COVID 19 (Confirmed) Comment:Patient's Isolation precautions are discontinued as of: 10/09/2021 Patient is considered recovered. X2 negative PCR tests >24hrs apart. [facility] has contacted patient's physician/treatment team, patient is clear to have isolation precautions discontinued. Physician notified Name: Dr. Healy Nurse notified Name: JORDANA notified : Hany Carrera 09/23/2021 09/23/2021 10/09/2021 7:[address] C. difficile Rule-Out 09/27/2021 09/27/20212021 11:07 AM EST documented as of this encounter Care Teams Needle Leader Relationship Specialty Start Date End Date Tapestry, General External Provider, [address] [place] [address] PCP - General Sap Functional Analyst 02/26/21 06/11/22 documented as of this encounter
--- OUTSIDE RECORDS SUMMARY | 2024-08-04 20:06 | XMS_ITS | Encounter Summary ---
Author Organization Healthcare Address [address] [place] [address] Care Team Providers Care Lighting Director Name Role Phone Tapestry, General External Provider Primary C are Provider Shantanu Landeros MD Primary Care Provider [phone] Encounter Details Date Type Department Care Team (Late st Contact Info) Description 09/24/2021 Lab Requisition [facility] Lab [address] [place] [address] Cale Carvajal MD [address] [place] [address] Encounter for general adult medical examination without abnormal findings Social History Tobacco Use Types Packs/Day Years [...] and Family Not on file 02/27/2021 Attends [employer] Services Not on file 02/27 Active Member [...] Recorded Patient Health Questionnaire-2 Score 2 02/27/2021 [facility] - Occupational Stress Questionnaire Answer Date Recorded [...] 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 f ile documented as of this encounter Plan of Treatment Not on file documented as of this encounter Procedures Procedure Name Priority Date/Time Associated Diagnosis Comments MULTI DRUG RESISTANCE TEST Routine 09/24/2021 10:45 AM EST Encounter for general adult medical examination without abnormal findings documented in this encounter Results * Multi Drug Resistance Test (09/24/2021 10:45 AM EST) Culture No growth at day 2 09/26/2021 5:56 AM EST [facility] Swab (Nares and Shira Rectal) 09/24/2021 10:45 AM EST 09/24/2021 2:14 PM EST Cale Hernandez MD LAB MICROBIOLOGY - GENERAL ORDERABLES Final Result Performing Organization Address City/State/[facility] Co de Phone Number HEALTHCARE LAB [address] [place] [address] documented in this encounter Visit Diagnoses Diagnosis Encounter for general adult medical examination without abnormal findings documented in this encounter Additional Health Concerns Infection Onset Date Last Indicated Resolved Time COVID 19 (Confirmed) Comment:Patient's Isolation precautions are discontinued as of: 10/09/2021 Patient is considered recovered. X2 negative PCR tests >24hrs apart. [facility] has contacted patient's physician/treatment team, patient is clear to have isolation precautions discontinued. Physician notified Name: Dr. Healy Nurse notified Name: EVS notified : Hany Carrera 09/23/2021 09/23/2021 10/09/2021 7:[address] C. difficile Rule-Out 09/27/2021 09/27/20212021 11:07 AM EST documented as of this encounter Care Teams Lighting Director Relationship Specialty Start Date End Date Tapestry, External ProviderMD [address] [place] [id number] PCP - General Occupational Medicine Physician 02/26/21 06/11/22 Shantanu Landeros MD [address] [place] [address] PCP - General 06/12/22 documented as of this encounter
--- OUTSIDE RECORDS SUMMARY | 2024-08-04 20:06 | XMS_ITS | Encounter Summary ---
Author Organization Healthcare Address [address] [place], [place] [id number] Care Team Providers Care Knuckle Strap Sewer Name Role Phone Tapestry, General External Provider Primary C are Provider Shantanu Landeros MD Primary Care Provider [phone] Encounter Details Date Type Department Care Team (Late st Contact Info) Description 09/13/2021 Lab Requisition [facility] Lab [address] [place] [address] Liborio Mariano [address] [place] [address] Encounter for general adult medical examination without [...] and Family Not on file 02/27/2021 Attends [employer] Services Not on file 02/27 Active Member [...] Recorded Patient Health Questionnaire-2 Score 2 02/27/2021 [facility] - Occupational Stress Questionnaire Answer Date [...] in a alf (including now)? 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 X2 negative PCR tests >24hrs apart. [facility] has contacted patient's physician/treatment team, patient is clear to have isolation precautions discontinued. Physician notified Name: Dr. Healy Nurse notified Name: JORDANA notified : Hany Carrera 09/23/2021 09/23/2021 10/09/2021 7:[address] C. difficile Rule-Out 09/27/2021 09/27/20212021 11:07 AM EST documented as of this encounter Care Teams Knuckle Strap Sewer Relationship Specialty Start Date End Date Tapestry, General External Provider, [address] [place] [address] PCP - General Media Marketing Director 02/26/21 06/11/22 Shantanu Landeros MD [address] [place] [address] PCP - General 06/12/22 documented as of this encounter
--- OUTSIDE RECORDS SUMMARY | 2024-08-04 20:06 | XMS_ITS | Encounter Summary ---
Author Organization Healthcare Address [address] [place] [address] Care Team Providers Care Production Team Leader Name Role Phone Tapestry, General External Provider Primary C are Provider Encounter Details Date Type Department Care Team (Latest Contact Info) Description 10/02/2021 Travel Social History Tobacco Use Types Packs/Day [...] Recorded Patient Health Questionnaire-2 Score 2 02/27/2021 [facility] [place] [facility] Occup[facility] ional Health - Occupational Stress [...] place to sleep or slept in a long term (including now)? 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 No / Unsure 10/02/2021 7:43 AM EST documented as of this encounter Plan of Treatment Not on file documented as of this encounter Visit Diagnoses Not on filedocumented in this encounter Additional Health Concerns Infection Onset Date Last Indicated Resolved Time COVID 19 (Confirmed) Comment:Patient's Isolation precautions are discontinued as of: 10/09/2021 Patient is considered recovered. X2 negative PCR tests >24hrs apart. [facility] has contacted patient's physician/treatment team, patient is clear to have isolation precautions discontinued. Physician notified Name: Dr. Healy Nurse notified Name: JORDANA notified : Hany Carrera 09/23/2021 09/23/2021 10/09/2021 7:[address] documented as of this encounter Care Teams Production Team Leader Relationship Specialty Start Date End Date Tapestry, General External Provider, [address] [place], [place] [id number] PCP - General Shaker Operator 02/26/21 06/11/22 documented as of this encounter
--- OUTSIDE RECORDS SUMMARY | 2024-08-04 20:06 | XMS_ITS | Encounter Summary ---
Author Organization Healthcare Address [address] [place], [place] [id number] Care Team Providers Care Obstetrics And Gynecology Professor Name Role Phone Tapestry, General External Provider Primary C are Provider Shantanu Landeros MD Primary Care Provider [phone] Encounter Details Date Type Department Care Team (Late st Contact Info) Description 09/13/2021 Lab Requisition [facility] Lab [address] [place] [address] Liborio Mariano [address] [place] [address] Encounter for general adult medical examination without [...] and Family Not on file 02/27/2021 Attends [employer] Services Not on file 02/27 Active Member [...] Recorded Patient Health Questionnaire-2 Score 2 02/27/2021 [facility] - Occupational Stress Questionnaire Answer [...] a skilled nursing (including now)? 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 Tissue Topography unknown / Unknown Non-blood Collection / Unknown 09/12/2021 6:05 PM EST 09/13/2021 8:51 AM EST Liborio Gagan [facility] MICROBIOLOGY - GENERAL ORDER SIMRAN Final Result [facility] [address] [place] [address] * (ABNORMAL) Tissue Culture and Gram Stain (09/12/2021 6:05 PM EST) Culture Light Growth 09/16/2021 1:32 PM EST [facility] Culture 1+ Enterobacter cloacae complex(A) 09/16/2021 1:32 PM EST [facility] Comment: This isolate has been identified using the FDA Approved MALDI [employer] System The organism value for this result has been updated. These results have been appended to the previously preliminary verified report. Culture 1+ Shelby glabrata(A) 09/16/2021 1:32 PM EST [facility] Comment: This result was determined by MALDI tof Mass spectrometry. This assay was developed and its performance characteristics determined by [facility] as appropriate for clinical purposes. This assay has not been cleared or approved by the FDA, but is performed in a CLIA regulated laboratory that is qualified to perform high complexity testing. The organism value for this result has been updated. These results have been appended to the previously preliminary verified report. Edited result: Previously reported as Yeast on 09/14/2021 at 1045 EST. Culture 1+ Escherichia coli(A) 09/16/2021 1:32 PM EST [facility] Comment: This isolate has been identified using the FDA Approved MALDI [employer] System The organism value for this result has been updated. These results have been appended to the previously preliminary verified report. Gram Stain Result No polymorphonuclear leukocytes seen(A) 09/16/2021 1:32 PM EST [facility] Gram Stain Result Rare Gram positive rods(A) 09/16/2021 1:[address] [facility] Tissue Topography unknown / Unknown Non-blood Collection / Unknown 09/12/2021 6:05 PM EST 09/13/2021 8:51 AM EST Narrative Organism Antibiotic Method Susceptibility Enterobacter cloacae complex Amikacin MARK <=8 ug/ml: Susceptible Enterobacter cloacae complex Ampicillin MARK >16 ug/ml: Resistant Enterobacter cloacae complex Ampicillin/Sulbactam MARK 16/8 ug/ml: Resistant Enterobacter cloacae complex Aztreonam MARK <=2 ug/ml: Susceptible Enterobacter cloacae complex Cefazolin MARK >16 ug/ml: Resistant Enterobacter cloacae complex Cefepime MARK <=0.5 ug/ml: Susceptible Enterobacter cloacae complex Ciprofloxacin MARK <=0.25 ug/ml: Susceptible Enterobacter cloacae complex Ertapenem AMRK <=0.25 ug/ml: Susceptible Enterobacter cloacae complex Gentamicin MARK <=2 ug/ml: Susceptible Enterobacter cloacae complex Levofloxacin MARK <=0.25 ug/ml: Susceptible Enterobacter cloacae complex Meropenem MARK <=0.5 ug/ml: Susceptible Enterobacter cloacae complex Piperacillin/Tazobactam MARK <=2/4 ug/ml: Susceptible Enterobacter cloacae complex Tetracycline MARK <=2 ug/ml: Susceptible Enterobacter cloacae complex Tobramycin MARK <=2 ug/ml: Susceptible Enterobacter cloacae complex Trimethoprim/Sulfamethoxaz ole MARK >2/38 ug/ml: Resistant Escherichia coli Amikacin MARK <=8 ug/ml: Susceptible Escherichia coli Ampicillin AMRK >16 ug/ml: Resistant Escherichia coli Ampicillin/Sulbactam MARK >16/8 ug/ml: Resistant Escherichia coli Aztreonam MARK <=2 ug/ml: Susceptible Escherichia coli Cefazolin MARK 4 ug/ml: Susceptible Escherichia coli Cefepime MARK <=0.5 ug/ml: Susceptible Escherichia coli Ceftriaxone MARK <=1 ug/ml: Susceptible Escherichia coli Ciprofloxacin MARK 1 ug/ml: Resistant Escherichia coli Ertapenem MARK <=0.25 ug/ml: Susceptible Escherichia coli Gentamicin MARK <=2 ug/ml: Susceptible Escherichia coli Levofloxacin MARK 1 ug/ml: Intermediate Escherichia coli Meropenem MARK <=0.5 ug/ml: Susceptible Escherichia coli Piperacillin/Tazobactam MARK 4/4 ug/ml: Susceptible Escherichia coli Tetracycline MARK <=2 ug/ml: Susceptible Escherichia coli Tobramycin MARK <=2 ug/ml: Susceptible Escherichia coli Trimethoprim/Sulfame thoxaz ole MARK >2/38 ug/ml: Resistant Liborio Farah [facility] LAB MICROBIOLOGY - GENERAL ORDER SIMRAN Final Result [facility] [address] [place] [address] documented in this encounter Visit Diagnoses Diagnosis [...] documented as of this encounter Care Teams Obstetrics And Gynecology Professor Relationship Specialty Start Date End Date Tapestry, General External Provider, [address] [place] [id number] PCP - General Media Center Specialist 02/26/21 06/11/22 Shantanu Landeros MD [address] [place] [address] PCP - General 06/12/22 documented as of this encounter
--- OUTSIDE RECORDS SUMMARY | 2024-08-04 20:06 | XMS_ITS | Encounter Summary ---
Author Organization Healthcare Address [facility] [place] [place] [id number] Care Team Providers Care Barn Operator Name Role Phone Tapestry, General External Provider Primary C are Provider Shantanu Landeros MD Primary Care Provider [phone] Encounter Details Date Type Department Care Team (Late st Contact Info) Description 02/27/2021 Lab Requisition [facility] [address] [place] [address] [place], [place] [address] [address] Routine general medical examination at a health care facility Social History Tobacco Use Types Packs/Day Years [...] Recorded Patient Health Questionnaire-2 Score 2 02/27/2021 [facility] Occupat ional [facility] - Occupational Stress Questionnaire Answer Date [...] place to sleep or slept in a snf (including now)? 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 No / Unsure 02/26/2021 3:01 PM EDT documented as of this encounter Plan of Treatment Not on file documented as of this encounter Visit Diagnoses Diagnosis Routine general medical examination at a health care facility documented in this encounter Additional Health Concerns [...] documented as of this encounter Care Teams Barn Operator Relationship Specialty Start Date End Date Tapestry, General External Provider, [address] [place] [address] PCP - General Rivet Driver 02/26/21 06/11/22 Shantanu Landeros MD [address] [place] [address] PCP - General 06/12/22 documented as of this encounter
== END 2024-08-04 23:59 | disposition home or self-care (01) ==
LOC: LAB.DROPOF 20:00
PROVIDERS: PCP Nurse Practitioner Family; Visit Provider Nurse Practitioner Family
DX: R39.9 Unspecified symptoms and signs involving the genitourinary system (principal)
CPT/HCPCS: 87086